=== PATIENT | male | born 1950 | race Caucasian/White ===

== ENCOUNTER 2016-12-29 09:38 | Inpatient (IN) | payer BC, MEDICARE ==
[2016-12-29] MEDS ORDERED: DILTIAZEM 5 MG/ML 5 ML VIAL IVP STA (09:40)
[2016-12-29] MEDS ORDERED: SODIUM CHLORIDE 0.9% 1,000 ML IV STA (09:40)
--- NOTE | 2016-12-29 09:53 | ED ---
General Adult HPI - General Stated complaint: Leg Weakness Time Seen by Provider: 12/29/16 09:40 Source: EMS, RN notes reviewed, old records reviewed Mode of arrival: EMS Limitations: physical limitation - History of Present Illness Initial comments: This is a 66-year-old male the ER for evaluation. The patient is coming in for evaluation of weakness. Patient is post chemotherapy today for lymphoma. Patient was walking back to his car became very weak and values to pass out had to go down to his knees, he did not completely pass out. The patient like his heart was racing. No recent illnesses or sick contacts, no recent fevers. No recent nausea vomiting or diarrhea. Patient states he is taking all medications as prescribed - Related Data Home Medications Medication Instructions Recorded Confirmed Finasteride 5 mg PO 04/18/14 12/29/16 Hydrochlorothiazide 25 mg PO [facility] 04/18/14 12/29/16 Lisinopril 20 mg PO [facility] 04/18/14 12/29/16 Simvastatin 20 mg PO 04/18/14 12/29/16 Aspirin 81 mg PO 04/22/14 12/29/16 Fluticasone Nasal [place] [Flonase 1 spray EA NOSTRIL DAILY 10/26/16 12/29/16 Nasal [place]] metFORMIN HCL [metFORMIN HCL ER] 500 mg PO DAILY 10/26/16 12/29/16 Albuterol Sulfate [Proair Hfa] 1 - 2 puff INHALATION RT-Q6H PRN 12/29/16 Edoxaban Tosylate [Savaysa] 60 mg PO DAILY 12/29/16 12/29/16 Metoprolol Tartrate [Lopressor] 25 mg PO BID 12/29/16 12/29/16 Omeprazole 20 mg PO DAILY 12/29/16 12/29/16 Ondansetron [Zofran] 4 mg PO Q6H PRN 12/29/16 12/29/16 Oxybutynin Chloride [Ditropan XL] 10 mg PO DAILY 12/29/16 12/29/16 Previous Rx's Medication Instructions Recorded Nitroglycerin Sl Tabs [Nitrostat] 0.4 mg SUBLINGUAL Q5M PRN #20 tab 04/23/14 Allergies Allergy/AdvReac Type Severity Reaction Status Date / Time Penicillins Allergy Unknown Verified 12/29/16 10:20 Childhood Review of Systems ROS Statement: Those systems with pertinent positive or pertinent negative responses have been documented in the HPI. ROS Other: All systems not noted in ROS Statement are negative. Past Medical History Past Medical History: Asthma, Cancer, Hyperlipidemia, Hypertension, Osteoarthritis (OA), Prostate Disorder Additional Past Medical History / Comment(s): SEE H & P FROM [facility]. CHRONIC BACK PAIN, USES CANE, LYMPHOMA 2016 History of Any Multi-Drug Resistant Organisms: None Reported Past Surgical History: Orthopedic Surgery, Tonsillectomy Additional Past Surgical History / Comment(s): MUTIPLE SURGERIES ON HANDS WITH SKIN GRAFTS (POST INJURY IN [place]), INFUSAPORT, [id number] Past Anesthesia/Blood Transfusion Reactions: No Reported Reaction Additional Past Anesthesia/Blood Transfusion Reaction / Comment(s): TROUBLE WAKING UP Past Psychological History: No Psychological Hx Reported Smoking Status: Never smoker Past Alcohol Use History: Occasional Past Drug Use History: None Reported - Past Family History Mother Family Medical History: Cancer Additional Family Medical History / Comment(s): LUNG General Exam Limitations: physical limitation General appearance: alert, in no apparent distress Head exam: Present: atraumatic, normocephalic, normal inspection Eye exam: Present: normal appearance, PERRL, EOMI. Absent: scleral icterus, conjunctival injection, periorbital swelling ENT exam: Present: normal exam, mucous membranes moist Neck exam: Present: normal inspection. Absent: tenderness, meningismus, lymphadenopathy Respiratory exam: Present: normal lung sounds bilaterally. Absent: respiratory distress, wheezes, rales, rhonchi, stridor Cardiovascular Exam: Present: tachycardia, irregular rhythm, normal heart sounds. Absent: systolic murmur, diastolic murmur, rubs, gallop, clicks GI/Abdominal exam: Present: soft, normal bowel sounds. Absent: distended, tenderness, guarding, rebound, rigid Extremities exam: Present: normal inspection, full ROM, normal capillary refill. Absent: tenderness, pedal edema, joint swelling, calf tenderness Back exam: Present: normal inspection Neurological exam: Present: alert, oriented X3, CN II-XII intact Psychiatric exam: Present: normal affect, normal mood Skin exam: Present: warm, dry, intact, normal color. Absent: rash Course Vital Signs 12/29/16 12/29/16 12/29/16 09:42 10:30 11:00 Temperature 97.4 F L Pulse Rate 124 H 88 96 Respiratory 20 18 20 Rate Blood Pressure 124/59 115/55 110/57 O2 Sat by Pulse 98 100 100 Oximetry - Reevaluation(s) Reevaluation #1: 12/29/16 12:33 Patient A. fib with RVR did resolve, he says his near syncope as symptoms are improving EKG Findings - EKG Comments: EKG Findings:: EKG shows A. fib with RVR rate 126, QRS 144, QTC 538 Medical Decision Making - Medical Decision Making 66 year near syncope weakness secondary to chemotherapy, walk into car and had a near syncopal event, patient found to be in A. fib with RVR, patient is anticoagulated, patient's troponin is mildly elevated which we'll trend out, patient will be admitted for telemetry, no recent fevers, patient is pancytopenic with neutropenia - Lab Data Result diagrams: 12/29/16 10:00 12/29/16 10:00 Lab Results 12/29/16 12/29/16 12/29/16 Range/Units 10:00 10:00 10:00 WBC 0.5 L* (3.8-10.6) k/uL RBC 3.32 L (4.30-5.90) m/uL Hgb 10.5 L (13.0-17.5) gm/dL Hct 32.2 L (39.0-53.0) % MCV 96.8 (80.0-100.0) fL MCH 31.7 (25.0-35.0) pg MCHC 32.7 (31.0-37.0) g/dL RDW 16.2 H (11.5-15.5) % Plt Count 102 L D (150-450) k/uL Anisocytosis Slight PT (9.0-12.0) sec INR (<1.1) APTT (22.0-30.0) sec Sodium 136 L (137-145) mmol/L Potassium 3.7 (3.5-5.1) mmol/L Chloride 97 L (98-107) mmol/L Carbon Dioxide 20 L (22-30) mmol/L Anion Gap 19 mmol/L BUN 21 H (9-20) mg/dL Creatinine 1.15 (0.66-1.25) mg/dL Est GFR (MDRD) Af Amer >60 (>60 ml/min/1.73 sqM) Est GFR (MDRD) Non-Af >60 (>60 ml/min/1.73 sqM) Glucose 245 H (74-99) mg/dL Calcium 9.4 (8.4-10.2) mg/dL Phosphorus 2.3 L (2.5-4.5) mg/dL Magnesium 1.5 L (1.6-2.3) mg/dL Total Bilirubin 1.3 (0.2-1.3) mg/dL AST 24 (17-59) U/L ALT 26 (21-72) U/L Alkaline Phosphatase 59 (38-126) U/L Total Creatine Kinase 364 H (55-170) U/L CK-MB (CK-2) 1.3 (0.0-2.4) ng/mL CK-MB (CK-2) Rel Index 0.4 Troponin I 0.056 H* (0.000-0.034) ng/mL Total Protein 6.1 L (6.3-8.2) g/dL Albumin 3.3 L (3.5-5.0) g/dL TSH 6.080 H (0.465-4.680) mIU/L Acetone, Qual (Negative) 12/29/16 12/29/16 Range/Units 10:00 10:00 WBC (3.8-10.6) k/uL RBC (4.30-5.90) m/uL Hgb (13.0-17.5) gm/dL Hct (39.0-53.0) % MCV (80.0-100.0) fL MCH (25.0-35.0) pg MCHC (31.0-37.0) g/dL RDW (11.5-15.5) % Plt Count (150-450) k/uL Anisocytosis PT 12.6 H (9.0-12.0) sec INR 1.3 (<1.1) APTT 22.6 (22.0-30.0) sec Sodium (137-145) mmol/L Potassium (3.5-5.1) mmol/L Chloride (98-107) mmol/L Carbon Dioxide (22-30) mmol/L Anion Gap mmol/L BUN (9-20) mg/dL Creatinine (0.66-1.25) mg/dL Est GFR (MDRD) Af Amer (>60 ml/min/1.73 sqM) Est GFR (MDRD) Non-Af (>60 ml/min/1.73 sqM) Glucose (74-99) mg/dL Calcium (8.4-10.2) mg/dL Phosphorus (2.5-4.5) mg/dL Magnesium (1.6-2.3) mg/dL Total Bilirubin (0.2-1.3) mg/dL AST (17-59) U/L ALT (21-72) U/L Alkaline Phosphatase (38-126) U/L Total Creatine Kinase (55-170) U/L CK-MB (CK-2) (0.0-2.4) ng/mL CK-MB (CK-2) Rel Index Troponin I (0.000-0.034) ng/mL Total Protein (6.3-8.2) g/dL Albumin (3.5-5.0) g/dL TSH (0.465-4.680) mIU/L Acetone, Qual Negative (Negative) Disposition Clinical Impression: Atrial fibrillation with RVR, Weakness, Dehydration Disposition: ADMITTED IP TO THIS HOSP Condition: Fair Referrals: Migue Hicks III, MD [Primary Care Provider] - 1-2 days
[2016-12-29] MEDS ORDERED: DILTIAZEM 125 MG in SODIUM CHLORIDE 0.9% 100 ML IV ONE (10:00)
[2016-12-29 10:33] LABS: ALT 26 U/L (21-72); AST 24 U/L (17-59); Alkaline Phosphatase 59 U/L (38-126); Anion Gap 19 mmol/L; Blood Urea Nitrogen 21 mg/dL (9-20); Calcium 9.4 mg/dL (8.4-10.2); Carbon Dioxide 20 mmol/L (22-30); Chloride 97 mmol/L (98-107); Glucose 245 mg/dL (74-99); Magnesium 1.5 mg/dL (1.6-2.3); Non-African American GFR(MDRD) >60 (>60 ml/min/1.73 sqM); Phosphorous 2.3 mg/dL (2.5-4.5); Potassium 3.7 mmol/L (3.5-5.1); Sodium 136 mmol/L (137-145); Total Bilirubin 1.3 mg/dL (0.2-1.3); Total Protein 6.1 g/dL (6.3-8.2)
[2016-12-29 10:34] LABS: Anisocytosis Slight; CHCM 33.1; HCT 32.2 % (39.0-53.0); HDW 2.83; HGB 10.5 gm/dL (13.0-17.5); Immature Gran Flag Slight; MCH 31.7 pg (25.0-35.0); MCHC 32.7 g/dL (31.0-37.0); MCV 96.8 fL (80.0-100.0); Mean Platelet Volume 7.9; RBC 3.32 m/uL (4.30-5.90); RDW 16.2 % (11.5-15.5); WBC (Perox) 0.49
[2016-12-29 10:37] LABS: WBC 0.5 k/uL (3.8-10.6)
[2016-12-29 10:42] LABS: INR 1.3 (<1.1); Partial Thromboplastin Time 22.6 sec (22.0-30.0); Prothrombin Time 12.6 sec (9.0-12.0)
--- NOTE | 2016-12-29 10:45 | XR ---
EXAMINATION TYPE: XR chest 2V DATE OF EXAM: 12/29/2016 10:14 AM COMPARISON: None HISTORY: 66-year-old male with shortness of breath and weakness TECHNIQUE: AP and lateral views FINDINGS: Heart is normal size. Aorta and pulmonary vasculature are within normal limits. There is suggestion o f a rounded 2.6 cm pulmonary nodule posteriorly at the mid lung level on the lateral view. No consoli dation or pleural effusion. Right-sided chest wall injection port with catheter tip at the lower SVC. IMPRESSION: 1. Apparent 2.6 cm pulmonary nodule posterior mid lung on the lateral view. Correlate for any known l kriss lesions, primary cancer, or metastatic disease an 2. No acute process identified.
[2016-12-29 10:59] LABS: Creatine Kinase MB 1.3 ng/mL (0.0-2.4)
[2016-12-29 11:00] LABS: Troponin I 0.056 ng/mL (0.000-0.034)
[2016-12-29 11:09] LABS: Add Differential Manual Differential
[2016-12-29] MEDS: MAGNESIUM SULFATE-D5W PMX 1 GM in DEXTROSE/WATER 1 100ML.BAG IVPB SCH ×2 (11:40→13:43)
[2016-12-29] MEDS ORDERED: CEFEPIME 2 GM in SODIUM CHLORIDE 0.9% 50 ML IVPB STA (12:29)
[2016-12-29] MEDS ORDERED: ASPIRIN 81 MG CHEW PO STA (12:30)
[2016-12-29] MEDS ORDERED: NITROGLYCERIN SL TABS 0.4 MG TAB SUBLINGUAL PRN ×2 (12:30→15:13)
[2016-12-29] MEDS ORDERED: RX INFO: IV CONTRAST WAS GIVEN 1 EACH MISC MISCELLANE PRN (12:40)
[2016-12-29] MEDS: SODIUM CHLORIDE 0.9% 1,000 ML IV SCH (12:50)
--- NOTE | 2016-12-29 13:52 | CT ---
EXAMINATION TYPE: CT angio chest DATE OF EXAM: 12/29/2016 1:30 PM COMPARISON: Chest x-ray same date HISTORY: bilateral leg weakness today with h/o Lymphoma, abnormal chest x-ray, shortness of breath CT DLP: 1348.5 mGycm Automated exposure control for dose reduction was used. CONTRAST: CTA scan of the thorax is performed with IV Contrast, patient injected with 100 mL of Omnipaque 350, pulmonary embolism protocol. MIP images are created and reviewed. 3D reconstructed images are creat ed on an independent workstation and reviewed. FINDINGS: LUNGS: The lungs are grossly clear, there is no concerning parenchymal mass or nodule identified. T here is no pleural effusion or pneumothorax seen. The tracheobronchial tree is patent. The rounded d ensity seen on chest x-ray likely corresponds to a large osteophyte in the thoracic spine. AORTA: No additional significant abnormality is seen. There is inconsistent opacification of the seg mental pulmonary arteries to the lower lobes which is thought likely to be artifactual. No definite f illing defect identified to suggest pulmonary embolism. MEDIASTINUM: Coronary artery calcifications are present. There are no greater than 1 cm hilar or medi astinal lymph nodes. No pericardial effusion is seen. OTHER: Gallstones are calcified within the gallbladder. There is a small hiatal hernia. There is a s jaleesa curvature. Degenerative disc changes are present in the visualized spine, there is multilevel f acet arthropathy. IMPRESSION: ALTHOUGH THE IS LIMITATIONS IN EXAM TECHNICALLY PULMONARY EMBOLISM IS NOT FELT LIKELY TO BE PRESENT. THERE ARE LIMITATIONS IN THE EXAM DESCRIBED. CHOLELITHIASIS. CORONARY ARTERY DISEASE. SMALL HIATAL HERNIA. ADDITIONAL FINDINGS ABOVE.
[2016-12-29 14:08] LABS: Appearance,Urine Cloudy (Clear); Bacteria,Urine Many /hpf; Bilirubin,Urine Negative (Negative); Glucose,Urine (UA) Trace (Negative); Ketones,Urine Trace (Negative); Leukocyte Esterase,Urine Negative (Negative); Mucus,Urine Occasional /hpf; Nitrite,Urine Positive (Negative); PH, Urine 5.5 (5.0-8.0); Particle Count 11461; Protein,Urine 1+ (Negative); RBC,Urine 1 /hpf (0-5); Specific Gravity,Urine 1.025 (1.001-1.035); UA Billing (MACRO vs. MICRO) MICRO; Urobilinogen,Urine <2.0 mg/dL (<2.0); WBC,Urine 10 /hpf (0-5)
[2016-12-29] MEDS ORDERED: ALBUTEROL NEBULIZED 2.5 MG/3 ML INHALATION PRN (15:13)
[2016-12-29] MEDS ORDERED: ONDANSETRON 4 MG TAB PO PRN (15:13)
[2016-12-29 17:06] LABS: Creatine Kinase MB 8.8 ng/mL (0.0-2.4); Troponin I 0.533 ng/mL (0.000-0.034)
--- NOTE | 2016-12-29 17:06 | HP ---
DATE OF ADMISSION: 12/29/2016 CHIEF COMPLAINTS: Weakness and the atrial fibrillation. HISTORY OF PRESENT ILLNESS: This 66-year-old gentleman with a past history of multiple medical problems, including history of atrial fibrillation, history of asthma, history of CAD, history of hypertension, history of DJD, history of prostate disorder, history of lymphoma being followed by Dr. Hicks and Dr. Haddad. The patient is receiving chemotherapy. Today the patient was trying to go to the garage and go to the car and the patient felt weak and extremely weak and the patient almost passed out. He was done to the knees, but he did not completely pass out. The patient was taken to [facility] and found to have atrial fibrillation with fast ventricular rate. The patient was admitted to the hospital for further evaluation and treatment. The patient also had severe leukopenia. White count of 0.5. There is no history of any fever, rigors or chills. No history of headache, loss of consciousness or seizures. PAST MEDICAL HISTORY: History of atrial fibrillation, history of asthma, CAD, history of hypertension, history of hyperlipidemia, history of DJD, history of prostate disorder, history of lymphoma and chemotherapy. Skin lesions. Medications prior to admission include home medications are: 1. Metformin 500 mg p.o. daily. 2. Simvastatin 20 mg at bedtime. 3. Ditropan XL 10 mg p.o. daily. 4. Zofran 4 mg q.6 p.r.n. 5. Omeprazole 20 mg p.o. daily. 6. Nitrostat 0.4 sublingual p.r.n. 7. Lopressor 25 mg p.o. b.i.d., 8. Lisinopril 20 mg q.a.m. 9. Hydrochlorothiazide 25 mg p.o. q.a.m. 10. Flonase one spray daily. 11. Finasteride 5 mg p.o. q.h.s. 12. Savaysa 60 mg p.o. daily. 13. Aspirin 81 mg p.o. daily. 14. ProAir HFA 1 to 2 puffs q.6 p.r.n. ALLERGIES: PENICILLIN. FAMILY HISTORY: Chronic obstructive pulmonary disease, diabetes mellitus in the family. SOCIAL HISTORY: No history of smoking. Occasional alcohol intake. REVIEW OF SYSTEMS: ENT: No diminished vision. No diminished hearing. CARDIOVASCULAR: No angina or palpitations. RESPIRATORY: As mentioned earlier. GI: No nausea or vomiting. : No dysuria. Nervous system: No numbness, weakness. ALLERGIES/IMMUNOLOGY: No asthma or hayfever. MUSCULOSKELETAL: As mentioned earlier. HEMATOLOGY/ONCOLOGY: No history of anemia. ENDOCRINE: Diabetes mellitus, hypothyroidism. CONSTITUTIONAL: as mentioned earlier. DERMATOLOGY: Negative. RHEUMATOLOGY: Negative. PSYCHIATRY: as mentioned earlier. PHYSICAL EXAMINATION: Patient is alert and oriented x3. Pulse 88, blood pressure 118/60, respiration 20, temperature 98 degrees, pulse ox 98% on room air. HEENT: Conjunctivae normal. Oral mucosa moist. NECK: Obese. No jugular venous distention. No carotid bruit. No lymph node enlargement. CARDIOVASCULAR SYSTEM: S1, S2 muffled. Irregular, tachycardic. No S3, no S4. Ejection systolic murmur. RESPIRATORY: Diminished at the bases. A few scattered rhonchi and crackles. ABDOMEN: Soft, obese, nontender. No mass palpable. LEGS: Bilateral leg edema. Bilateral skin lesions also which is erythematous and tender. Also scabs also present. LYMPHATICS: No lymph nodes palpable in the neck, axillae or groin. SKIN: As mentioned earlier. Nervous system: Higher functions as mentioned earlier. Cranial nerve 2 thru 12 grossly intact. Moves all 4 limbs. No focal motor or sensory deficits. Labs are at this time WBC 0.5, hemoglobin is 10.5. Sodium 136. TSH was noted. ASSESSMENT: 1. Presyncope with atrial fibrillation with fast ventricular rate. 2. Leukopenia, rule out neutropenic sepsis. 3. Lymphoma on chemotherapy. 4. Pancytopenia, secondary to chemotherapy. 5. Hyponatremia. 6. Super morbid obesity with body mass index 54.4. 7. Diabetes mellitus type 2. 8. Hypomagnesemia. 9. Troponin 0.056 indeterminate. 10. Increased TSH. 11. Mild hypoalbuminemia. 12. Rule out urinary tract infection. 13. Atrial fibrillation history. 14. History of asthma. 15. History of coronary artery disease. 16. Hypertension. 17. Hyperlipidemia. 18. History of degenerative joint disease. 19. History of prostate disorder. 20. History of lymphoma, on chemotherapy. 21. History of skin disease. 22. Diabetes mellitus type 2. 23. History of head injury. 24. History of cardiac catheterization. 25. Gait dysfunction. 26. FULL CODE. RECOMMENDATIONS AND DISCUSSION: This 66-year-old gentleman who presented with multiple complex medical issues. We will monitor the patient closely. Continue the current medications. Continue symptomatic treatment. I would recommend continue with the current medications. I would recommend Cefepime. Consult Dr. Haddad and cardiology. Resume the home medications, monitor blood sugars closely. The patient is on beta blockers, continue to monitor. Guarded prognosis because of multiple complex medical issues. Further recommendations to follow. A copy of dictating being forwarded to Dr. Hicks who is the primary physician.
[2016-12-29 17:30] LABS: Glucose,Whole Blood 146 mg/dL (75-99)
[2016-12-29] MEDS: INSULIN LISPRO (humaLOG) 300 UNIT/3 ML VIAL SQ SCH ×2 (17:57→21:03)
[2016-12-29] MEDS: CEFEPIME 2 GM in SODIUM CHLORIDE 0.9% 50 ML IVPB SCH ×2 (18:30→23:04)
[2016-12-29 21:00] LABS: Glucose,Whole Blood 128 mg/dL (75-99)
[2016-12-29] MEDS: ATORVASTATIN 10 MG TAB PO SCH (21:00)
[2016-12-29] MEDS: METOPROLOL TARTRATE 25 MG TAB PO SCH (21:00)
[2016-12-29] MEDS: FINASTERIDE 5 MG TAB PO SCH (21:02)
[2016-12-29 23:01] LABS: Troponin I 0.548 ng/mL (0.000-0.034)
[2016-12-30 06:14] LABS: Glucose,Whole Blood 171 mg/dL (75-99)
[2016-12-30 06:17] LABS: Anisocytosis Slight; CH 31.8; CHCM 32.7; HCT 31.7 % (39.0-53.0); HDW 2.93; HGB 10.4 gm/dL (13.0-17.5); MCHC 32.7 g/dL (31.0-37.0); MCV 97.7 fL (80.0-100.0); Macrocytosis Slight; Mean Platelet Volume 9.1; RBC 3.24 m/uL (4.30-5.90); RDW 16.2 % (11.5-15.5); WBC (Perox) 1.81
[2016-12-30 06:30] LABS: WBC 1.6 k/uL (3.8-10.6)
[2016-12-30 06:44] LABS: Anion Gap 14 mmol/L; Blood Urea Nitrogen 22 mg/dL (9-20); Calcium 8.8 mg/dL (8.4-10.2); Carbon Dioxide 27 mmol/L (22-30); Chloride 96 mmol/L (98-107); Cholesterol 129 mg/dL (<200); Glucose 155 mg/dL (74-99); HDL Cholesterol 46 mg/dL (40-60); Non-African American GFR(MDRD) >60 (>60 ml/min/1.73 sqM); Potassium 3.5 mmol/L (3.5-5.1); Sodium 137 mmol/L (137-145); Triglycerides 112 mg/dL (<150)
[2016-12-30] MEDS: INSULIN LISPRO (humaLOG) 300 UNIT/3 ML VIAL SQ SCH ×4 (06:47→21:35)
[2016-12-30] MEDS: metFORMIN 500 MG TAB PO SCH ×2 (06:56→18:55)
[2016-12-30] MEDS: PANTOPRAZOLE 40 MG TABLET PO SCH (06:58)
[2016-12-30 06:59] LABS: Add Differential Manual Differential
[2016-12-30 07:07] LABS: Manual Review Performed; Nucleated Red Blood Cells 0 /100 WBC (0-0); Total Cells Counted 200
[2016-12-30 07:08] LABS: Large Platelets Present
[2016-12-30] MEDS: EDOXABAN TOSYLATE 60 MG TABLET PO SCH (08:04)
[2016-12-30] MEDS: METOPROLOL TARTRATE 25 MG TAB PO SCH ×3 (08:04→21:33)
[2016-12-30] MEDS: HYDROCHLOROTHIAZIDE 25 MG TAB PO SCH (08:04)
[2016-12-30] MEDS: LISINOPRIL 20 MG TAB PO SCH (08:04)
[2016-12-30] MEDS: OXYBUTYNIN 10 MG TAB.ER.24 PO SCH (08:05)
[2016-12-30] MEDS: CEFEPIME 2 GM in SODIUM CHLORIDE 0.9% 50 ML IVPB SCH ×3 (08:06→23:24)
[2016-12-30] MEDS: FLUTICASONE 50MCG/SPRAY NASAL 16GM EA NOSTRIL SCH (08:08)
[2016-12-30] MEDS ORDERED: ASPIRIN 325 MG TAB PO SCH (09:00)
[2016-12-30] MEDS ORDERED: ATORVASTATIN 80 MG TAB PO SCH (09:00)
--- NOTE | 2016-12-30 10:45 | P.CRDCN ---
<Elise Alvarenga E - Last Filed: 12/30/16 10:51> History of Present Illness Consult date: 12/30/16 Requesting physician: Paris Kwan Consult reason: atrial fibrillation Chief complaint: Weakness History of present illness: This is a pleasant 66-year-old gentleman who follows regularly with Dr. Espinoza in the office. He has a history of hypertension, hyperlipidemia , obesity, coronary artery disease with prior stenting of the OM 1 in 2013, lymphoma, chronic persistent atrial fibrillation on Savaysa for anticoagulation , he presents to the hospital mainly with complaints of weakness. Patient is currently undergoing chemotherapy for his lymphoma, he states that he has been getting more and more progressively weak. He had an appointment yesterday, and he states that in spite of feeling weak he walked out to his car for his appointment, states that his legs a lot to place, he squatted down to the ground and was unable to move. Hence EMS was called and the patient was brought to the emergency room for further evaluation. EKG on arrival here showed atrial fibrillation with a right bundle branch block pattern, heart rate in the 120s. Chest x-ray revealed a 2.6 cm pulmonary nodule in the posterior mid lung on the lateral view. CTA of the chest was performed, although there were some limitations in the exam, pulmonary embolism was not felt to be present. Laboratory data was reviewed, white blood cell count yesterday 0.5, 1.6 this morning, hemoglobin 10.4, platelet count 86, potassium 3.5, BUN 22, creatinine 1.0. Magnesium level I.5. Troponins 0.05, 0.53, 0.54. Blood pressure on arrival 124/59, heart rate in the 120s. This morning's blood pressure 118/60, heart rate 108. At the time of my examination this morning, patient states that he has walked to his doorway twice this morning, feeling much stronger than yesterday. Past Medical History Past Medical History: Atrial Fibrillation, Asthma, Coronary Artery Disease (CAD) , Cancer, Hyperlipidemia, Hypertension, Osteoarthritis (OA), Prostate Disorder Additional Past Medical History / Comment(s): 2016 diagnosed with lymphoma and is currently receiving chemo (one more treatment to go), currently has sores bilateral legs and very dry feet bilaterally with bilateral pedal edema, BPH, back pain with walking, NIDDM type II, hand injury while in [place] requiring multiple graft etc surgeries, infusaport infection. History of Any Multi-Drug Resistant Organisms: None Reported Past Surgical History: Heart Catheterization, Joint Replacement, Orthopedic Surgery, Tonsillectomy Additional Past Surgical History / Comment(s): MUTIPLE SURGERIES ON HANDS WITH SKIN GRAFTS (POST INJURY IN [place]), INFUSAPORT, PTCA 2013, colonoscopy/ polypectomy, total L hip arthroplasty. Past Anesthesia/Blood Transfusion Reactions: No Reported Reaction Additional Past Anesthesia/Blood Transfusion Reaction / Comment(s): TROUBLE WAKING UP long ago after surgery in the [employer]. 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 He uses a cane to ambulate. He drives. Smoking Status: Never smoker Past Alcohol Use History: Occasional Past Drug Use History: None Reported - Past Family History Mother Family Medical History: COPD, Diabetes Mellitus Additional Family Medical History / Comment(s): Mother of a MO at the age of 61 yrs. She was a heavy smoker. Father History Unknown: Yes Medications and Allergies Home Medications Medication Instructions Recorded Confirmed Type Finasteride 5 mg PO 04/18/14 12/29/16 History Hydrochlorothiazide 25 mg PO [facility] 04/18/14 12/29/16 History Lisinopril 20 mg PO [facility] 04/18/14 12/29/16 History Simvastatin 20 mg PO 04/18/14 12/29/16 History Aspirin 81 mg PO 04/22/14 12/29/16 History Fluticasone Nasal [place] [Flonase 1 spray EA NOSTRIL DAILY 10/26/16 12/29/16 History Nasal [place]] metFORMIN HCL [metFORMIN HCL ER] 500 mg PO DAILY 10/26/16 12/29/16 History Albuterol Sulfate [Proair Hfa] 1 - 2 puff INHALATION RT-Q6H PRN 12/29/16 History Edoxaban Tosylate [Savaysa] 60 mg PO DAILY 12/29/16 12/29/16 History Metoprolol Tartrate [Lopressor] 25 mg PO BID 12/29/16 12/29/16 History Omeprazole 20 mg PO DAILY 12/29/16 12/29/16 History Ondansetron [Zofran] 4 mg PO Q6H PRN 12/29/16 12/29/16 History Oxybutynin Chloride [Ditropan XL] 10 mg PO DAILY 12/29/16 12/29/16 History Allergies Allergy/AdvReac Type Severity Reaction Status Date / Time Penicillins Allergy Unknown Verified 12/29/16 10:20 Childhood Physical Exam Vitals: Vital Signs Temp Pulse Pulse Pulse Pulse Resp BP 12/30/16 08:18 97.8 F 108 H 108 H 18 12/30/16 03:43 97.1 F L 75 18 12/29/16 23:49 96.6 F L 78 20 12/29/16 19:20 97.3 F L 96 22 12/29/16 17:00 96 18 12/29/16 15:23 97.0 F L 18 12/29/16 14:00 91 20 112/56 12/29/16 13:00 89 20 118/60 BP BP Pulse Ox 12/30/16 08:18 118/61 12/30/16 03:43 103/57 100 12/29/16 23:49 106/57 99 12/29/16 19:20 123/62 97 12/29/16 17:00 12/29/16 15:23 110/61 97 12/29/16 14:00 99 12/29/16 13:00 98 Intake and Output 12/29/16 12/30/16 12/30/16 22:59 06:59 14:59 Intake Total 200 670 118 Output Total 600 650 Balance -400 20 118 Intake: IV 370 Cefepime 2 gm In Sodium 50 Chloride 0.9% 50 ml @ 100 mls/hr IVPB ONCE STA Rx# :[id number] Sodium Chloride 0.9% 1, 320 000 ml @ 20 mls/hr IV . Q24H [facility] Rx#:[id number] Intake, IV Titration 80 Amount Sodium Chloride 0.9% 1, 80 000 ml @ 20 mls/hr IV . Q24H [facility] Rx#:[id number] Oral 120 300 118 Output: Urine 600 650 Other: Voiding Method Toilet Urinal Urinal # Bowel Movements 0 Weight 187.27 kg 181.9 kg PHYSICAL EXAMINATION: HEENT: Head is atraumatic, normocephalic. Pupils equal, round. Neck is supple. There is no elevated jugular venous pressure. HEART EXAMINATION: Heart S1 and S2 irregular irregular CHEST EXAMINATION: Lungs are clear to auscultation and precussion. No chest wall tenderness is noted on palpation or with deep breathing. ABDOMEN: Soft, obese, nontender. Bowel sounds are heard. No organomegaly noted. EXTREMITIES: 1+ peripheral pulses with 2+ evidence of peripheral edema and no calf tenderness noted. Evidence of chronic venous stasis NEUROLOGIC patient is awake, alert and oriented -3. . Results 12/30/16 06:02 12/30/16 06:04 Cardiac Enzymes 12/29/16 12/29/16 Range/Units 15:41 22:06 CK-MB (CK-2) 8.8 H* 8.0 H* (0.0-2.4) ng/mL Troponin I 0.533 H* 0.548 H* (0.000-0.034) ng/mL Lipids 12/30/16 Range/Units 06:04 Triglycerides 112 (<150) mg/dL Cholesterol 129 (<200) mg/dL HDL Cholesterol 46 (40-60) mg/dL CBC 12/30/16 Range/Units 06:02 WBC 1.6 L* (3.8-10.6) k/uL RBC 3.24 L (4.30-5.90) m/uL Hgb 10.4 L (13.0-17.5) gm/dL Hct 31.7 L (39.0-53.0) % Plt Count 86 L (150-450) k/uL Comprehensive Metabolic Panel 12/30/16 Range/Units 06:04 Sodium 137 (137-145) mmol/L Potassium 3.5 (3.5-5.1) mmol/L Chloride 96 L (98-107) mmol/L Carbon Dioxide 27 (22-30) mmol/L BUN 22 H (9-20) mg/dL Creatinine 1.01 (0.66-1.25) mg/dL Glucose 155 H (74-99) mg/dL Calcium 8.8 (8.4-10.2) mg/dL Current Medications Generic Name Dose Route Start Last Admin Trade Name Freq PRN Reason Stop Dose Admin Albuterol Sulfate 2.5 mg 12/29/16 15:13 Ventolin Nebulized INHALATION RT-Q6H PRN Shortness Of Breath Aspirin 325 mg 12/30/16 09:00 12/30/16 08:04 Aspirin PO 325 mg DAILY [facility] Administration Atorvastatin Calcium 10 mg 12/29/16 21:00 12/29/16 21:00 Lipitor PO 10 mg HS [facility] Administration Edoxaban 60 mg 12/30/16 09:00 12/30/16 08:04 Savaysa PO 60 mg DAILY [facility] Administration Finasteride 5 mg 12/29/16 21:00 12/29/16 21:02 Proscar PO 5 mg HS [facility] Administration Fluticasone Propionate 1 spray 12/30/16 09:00 12/30/16 08:08 Flonase Nasal [place] EA NOSTRIL 1 spray DAILY [facility] Administration Hydrochlorothiazide 25 mg 12/30/16 09:00 12/30/16 08:04 Hydrodiuril PO 25 mg QAM [facility] Administration Sodium Chloride 1,000 mls @ 20 mls/hr 12/29/16 12:30 12/29/16 12:50 Saline 0.9% IV 20 mls/hr .Q24H [facility] Administration Cefepime HCl 2 gm/ Sodium 50 mls @ 100 mls/hr 12/29/16 16:00 12/30/16 08:06 Chloride IVPB 100 mls/hr Q8HR [facility] Administration Insulin Human Lispro 0 unit 12/29/16 17:30 12/30/16 06:47 Humalog SQ 4 unit ACHS [facility] Administration Protocol Lisinopril 20 mg 12/30/16 09:00 12/30/16 08:04 Zestril PO 20 mg QAM [facility] Administration Metformin HCl 250 mg 12/30/16 07:30 12/30/16 06:56 Glucophage PO Not Given AC-BID [facility] Metoprolol Tartrate 25 mg 12/29/16 21:00 12/30/16 08:04 Lopressor PO 25 mg BID [facility] Administration Miscellaneous Information 1 each 12/29/16 12:40 Rx Info: Iv Contrast Was Given MISCELLANE 12/31/16 12:40 DAILY PRN Per Protocol Nitroglycerin 0.4 mg 12/29/16 15:13 Nitrostat SUBLINGUAL Q5M PRN Chest Pain Ondansetron HCl 4 mg 12/29/16 15:13 Zofran PO Q6H PRN Nausea Oxybutynin Chloride 10 mg 12/30/16 09:00 12/30/16 08:05 Ditropan Xl PO 10 mg DAILY [facility] Administration Pantoprazole Sodium 40 mg 12/30/16 07:30 12/30/16 06:58 Protonix PO 40 mg AC-BRKFST [facility] Administration Intake and Output 12/29/16 12/30/16 12/30/16 22:59 06:59 14:59 Intake Total 200 670 118 Output Total 600 650 Balance -400 20 118 Intake: IV 370 Cefepime 2 gm In Sodium 50 Chloride 0.9% 50 ml @ 100 mls/hr IVPB ONCE STA Rx# :[id number] Sodium Chloride 0.9% 1, 320 000 ml @ 20 mls/hr IV . Q24H [facility] Rx#:[id number] Intake, IV Titration 80 Amount Sodium Chloride 0.9% 1, 80 000 ml @ 20 mls/hr IV . Q24H [facility] Rx#:[id number] Oral 120 300 118 Output: Urine 600 650 Other: Voiding Method Toilet Urinal Urinal # Bowel Movements 0 Weight 187.27 kg 181.9 kg 12/30/16 06:02 12/30/16 06:04 EKG Interpretations (text) EKG shows atrial fibrillation with a right bundle branch block pattern Assessment and Plan Plan: Assessment and plan #1 weakness in a patient undergoing chemotherapy for lymphoma. #2 chronic persistent atrial fibrillation, on Savaysa, currently on a Cardizem drip. Atrial fibrillation with rapid ventricular response on admission #3 diabetes #4 coronary artery disease with prior OM stenting in 2013 Number 5 hypertension #6 obesity #7 leukopenia #8 pancytopenia #9 abnormal troponins, 0.05, 0.5, 0.5. Not consistent with acute coronary syndrome, likely secondary to oxygen supply and demand mismatch #10 hypokalemia Plan We will check orthostatic heart rate and blood pressure every shift. Obtain echocardiogram with Doppler study. Decrease aspirin to 81 mg daily. Discontinue IV Cardizem, increase beta samy to 25 mg by mouth [address] potassium. Continue Savaysa. Further recommendations to follow. DNP note has been reviewed, I agree with a documented findings and plan of care. Patient was seen and examined. <Troy Fagan - Last Filed: 12/30/16 14:50> Physical Exam Vitals: Vital Signs Temp Pulse Pulse Pulse Resp BP BP 12/30/16 12:00 97.1 F L 101 H 18 121/66 12/30/16 08:18 97.8 F 108 H 108 H 18 118/61 12/30/16 08:00 108 H 108 H 18 12/30/16 03:43 97.1 F L 75 18 103/57 12/29/16 23:49 96.6 F L 78 20 106/57 12/29/16 19:20 97.3 F L 96 22 123/62 12/29/16 17:00 96 18 12/29/16 15:23 97.0 F L 18 110/61 Pulse Ox 12/30/16 12:00 98 12/30/16 08:18 12/30/16 08:00 12/30/16 03:43 100 12/29/16 23:49 99 12/29/16 19:20 97 12/29/16 17:00 12/29/16 15:23 97 Intake and Output 12/29/16 12/30/16 12/30/16 22:59 06:59 14:59 Intake Total 200 670 318 Output Total 600 650 Balance -400 20 318 Intake: IV 370 Cefepime 2 gm In Sodium 50 Chloride 0.9% 50 ml @ 100 mls/hr IVPB ONCE STA Rx# :[id number] Sodium Chloride 0.9% 1, 320 000 ml @ 20 mls/hr IV . Q24H [facility] Rx#:[id number] Intake, IV Titration 80 Amount Sodium Chloride 0.9% 1, 80 000 ml @ 20 mls/hr IV . Q24H [facility] Rx#:[id number] Oral 120 300 318 Output: Urine 600 650 Other: Voiding Method Toilet Urinal Urinal Urinal # Bowel Movements 0 Weight 187.27 kg 181.9 kg 181.9 kg Patient Weight 12/31/16 06:59 Weight 181.9 kg Results 12/30/16 06:02 12/30/16 06:04 Cardiac Enzymes 12/29/16 12/29/16 Range/Units 15:41 22:06 CK-MB (CK-2) 8.8 H* 8.0 H* (0.0-2.4) ng/mL Troponin I 0.533 H* 0.548 H* (0.000-0.034) ng/mL Lipids 12/30/16 Range/Units 06:04 Triglycerides 112 (<150) mg/dL Cholesterol 129 (<200) mg/dL HDL Cholesterol 46 (40-60) mg/dL CBC 12/30/16 Range/Units 06:02 WBC 1.6 L* (3.8-10.6) k/uL RBC 3.24 L (4.30-5.90) m/uL Hgb 10.4 L (13.0-17.5) gm/dL Hct 31.7 L (39.0-53.0) % Plt Count 86 L (150-450) k/uL Comprehensive Metabolic Panel 12/30/16 Range/Units 06:04 Sodium 137 (137-145) mmol/L Potassium 3.5 (3.5-5.1) mmol/L Chloride 96 L (98-107) mmol/L Carbon Dioxide 27 (22-30) mmol/L BUN 22 H (9-20) mg/dL Creatinine 1.01 (0.66-1.25) mg/dL Glucose 155 H (74-99) mg/dL Calcium 8.8 (8.4-10.2) mg/dL Current Medications Generic Name Dose Route Start Last Admin Trade Name Freq PRN Reason Stop Dose Admin Albuterol Sulfate 2.5 mg 12/29/16 15:13 Ventolin Nebulized INHALATION RT-Q6H PRN Shortness Of Breath Aspirin 81 mg 12/30/16 11:00 12/30/16 12:10 Aspirin PO Not Given DAILY [facility] Atorvastatin Calcium 10 mg 12/29/16 21:00 12/29/16 21:00 Lipitor PO 10 mg HS [facility] Administration Edoxaban 60 mg 12/30/16 09:00 12/30/16 08:04 Savaysa PO 60 mg DAILY [facility] Administration Finasteride 5 mg 12/29/16 21:00 12/29/16 21:02 Proscar PO 5 mg HS [facility] Administration Fluticasone Propionate 1 spray 12/30/16 09:00 12/30/16 08:08 Flonase Nasal [place] EA NOSTRIL 1 spray DAILY [facility] Administration Hydrochlorothiazide 25 mg 12/30/16 09:00 12/30/16 08:04 Hydrodiuril PO 25 mg QAM [facility] Administration Sodium Chloride 1,000 mls @ 20 mls/hr 12/29/16 12:30 12/30/16 12:09 Saline 0.9% IV 20 mls/hr .Q24H [facility] Administration Cefepime HCl 2 gm/ Sodium 50 mls @ 100 mls/hr 12/29/16 16:00 12/30/16 08:06 Chloride IVPB 100 mls/hr Q8HR [facility] Administration Insulin Human Lispro 0 unit 12/29/16 17:30 12/30/16 12:17 Humalog SQ Not Given ACHS [facility] Protocol Lisinopril 20 mg 12/30/16 09:00 12/30/16 08:04 Zestril PO 20 mg QAM [facility] Administration Metformin HCl 250 mg 12/30/16 07:30 12/30/16 06:56 Glucophage PO Not Given AC-BID [facility] Metoprolol Tartrate 25 mg 12/30/16 16:00 Lopressor PO TID [facility] Miscellaneous Information 1 each 12/29/16 12:40 Rx Info: Iv Contrast Was Given MISCELLANE 12/31/16 12:40 DAILY PRN Per Protocol Nitroglycerin 0.4 mg 12/29/16 15:13 Nitrostat SUBLINGUAL Q5M PRN Chest Pain Ondansetron HCl 4 mg 12/29/16 15:13 Zofran PO Q6H PRN Nausea Oxybutynin Chloride 10 mg 12/30/16 09:00 12/30/16 08:05 Ditropan Xl PO 10 mg DAILY [facility] Administration Pantoprazole Sodium 40 mg 12/30/16 07:30 12/30/16 06:58 Protonix PO 40 mg AC-BRKFST [facility] Administration Intake and Output 12/29/16 12/30/16 12/30/16 22:59 06:59 14:59 Intake Total 200 670 318 Output Total 600 650 Balance -400 20 318 Intake: IV 370 Cefepime 2 gm In Sodium 50 Chloride 0.9% 50 ml @ 100 mls/hr IVPB ONCE STA Rx# :[id number] Sodium Chloride 0.9% 1, 320 000 ml @ 20 mls/hr IV . Q24H [facility] Rx#:[id number] Intake, IV Titration 80 Amount Sodium Chloride 0.9% 1, 80 000 ml @ 20 mls/hr IV . Q24H [facility] Rx#:[id number] Oral 120 300 318 Output: Urine 600 650 Other: Voiding Method Toilet Urinal Urinal Urinal # Bowel Movements 0 Weight 187.27 kg 181.9 kg 181.9 kg Patient Weight 12/31/16 06:59 Weight 181.9 kg 12/30/16 06:02 12/30/16 06:04
[2016-12-30] MEDS ORDERED: POTASSIUM CHLORIDE ER 20 MEQ TAB.ER PO STA (10:53)
[2016-12-30 11:47] LABS: Glucose,Whole Blood 127 mg/dL (75-99)
[2016-12-30] MEDS: SODIUM CHLORIDE 0.9% 1,000 ML IV SCH (12:09)
[2016-12-30] MEDS: ASPIRIN 81 MG CHEW PO SCH (12:10)
--- NOTE | 2016-12-30 16:56 | P.CONS ---
History of Present Illness - Reason for Consult Consult date: 12/30/16 known-pt on chemo for lymphoma Requesting physician: Juan Carlos Ramon - Chief Complaint palpitations, weakness - History of Present Illness Mr. Welsh is a very pleasant 66-year-old male patient of Dr. Dr. Haddad who was initially seen around June 2016. He had a nodular mass just below the left knee that was increasing in size over the previous 4-[address] 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 Patient had a PET scan done for staging, uptake was noted at the mass site and in the right anterior and medial calf. He had an echo performed at that time, prior to anthracycline therapy, this was normal. Patient was initiated on RCHOP on September 15 and is status post 5 cycles area, patient has overall done rather well with treatment. Patient states that over the last few days he has been having diarrhea,dry heaves and poor oral intake, he noted that his urination was less frequent, the urine was darker and had a foul odor. Patient typically takes breaks while ambulating but, he decided to go out to his pole barn with out a break, he fell to his knees due to overwhelming leg weakness and SOB, he denied syncopy, he was brought to the emergency department. CT of the chest was negative for PE, no evidence of pneumonia, urine is suspicious, lower extremities are also suspicious for infection. Patient is on empiric antibiotics. When seen today the patient states he is doing much better then when he came in. He denies any current shortness of breath, dizziness, chest pain or palpitations, no more dry heaves, he is tolerating oral intake. Review of Systems All systems: negative Constitutional: Reports as per HPI Past Medical History Past Medical History: Atrial Fibrillation, Asthma, Coronary Artery Disease (CAD) , Cancer, Hyperlipidemia, Hypertension, Osteoarthritis (OA), Prostate Disorder Additional Past Medical History / Comment(s): 2016 diagnosed with lymphoma and is currently receiving chemo (one more treatment to go), currently has sores bilateral legs and very dry feet bilaterally with bilateral pedal edema, BPH, back pain with walking, NIDDM type II, hand injury while in [place] requiring multiple graft etc surgeries, infusaport infection. History of Any Multi-Drug Resistant Organisms: None Reported Past Surgical History: Heart Catheterization, Joint Replacement, Orthopedic Surgery, Tonsillectomy Additional Past Surgical History / Comment(s): MUTIPLE SURGERIES ON HANDS WITH SKIN GRAFTS (POST INJURY IN [place]), INFUSAPORT, PTCA 2013, colonoscopy/ polypectomy, total L hip arthroplasty. Past Anesthesia/Blood Transfusion Reactions: No Reported Reaction Additional Past Anesthesia/Blood Transfusion Reaction / Comm: TROUBLE WAKING UP long ago after surgery in the [employer]. 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 He uses a cane to ambulate. He drives. Smoking Status: Never smoker Past Alcohol Use History: Occasional Past Drug Use History: None Reported - Past Family History Mother Family Medical History: COPD, Diabetes Mellitus Additional Family Medical History / Comment(s): Mother of a AL at the age of 61 yrs. She was a heavy smoker. Father History Unknown: Yes Medications and Allergies Home Medications Medication Instructions Recorded Confirmed Type Finasteride 5 mg PO 04/18/14 12/29/16 History Hydrochlorothiazide 25 mg PO QA 04/18/14 12/29/16 History Lisinopril 20 mg PO M 04/18/14 12/29/16 History Simvastatin 20 mg PO 04/18/14 12/29/16 History Aspirin 81 mg PO 04/22/14 12/29/16 History Fluticasone Nasal [place] [Flonase 1 spray EA NOSTRIL DAILY 10/26/16 12/29/16 History Nasal [place]] metFORMIN HCL [metFORMIN HCL ER] 500 mg PO DAILY 10/26/16 12/29/16 History Albuterol Sulfate [Proair Hfa] 1 - 2 puff INHALATION RT-Q6H PRN 12/29/16 History Edoxaban Tosylate [Savaysa] 60 mg PO DAILY 12/29/16 12/29/16 History Metoprolol Tartrate [Lopressor] 25 mg PO BID 12/29/16 12/29/16 History Omeprazole 20 mg PO DAILY 12/29/16 12/29/16 History Ondansetron [Zofran] 4 mg PO Q6H PRN 12/29/16 12/29/16 History Oxybutynin Chloride [Ditropan XL] 10 mg PO DAILY 12/29/16 12/29/16 History Allergies Allergy/AdvReac Type Severity Reaction Status Date / Time Penicillins Allergy Unknown Verified 12/29/16 10:20 Childhood Physical Exam Vitals: Vital Signs Temp Pulse Pulse Pulse Resp BP Pulse Ox 12/30/16 12:00 97.1 F L 101 H 18 121/66 98 12/30/16 08:18 97.8 F 108 H 108 H 18 118/61 12/30/16 08:00 108 H 108 H 18 12/30/16 03:43 97.1 F L 75 18 103/57 100 12/29/16 23:49 96.6 F L 78 20 106/57 99 12/29/16 19:20 97.3 F L 96 22 123/62 97 12/29/16 17:00 96 18 Intake and Output 12/30/16 12/30/16 12/30/16 06:59 14:59 22:59 Intake Total 670 318 650 Output Total 650 Balance 20 318 650 Intake: IV 370 Cefepime 2 gm In Sodium 50 Chloride 0.9% 50 ml @ 100 mls/hr IVPB ONCE STA Rx# :[id number] Sodium Chloride 0.9% 1, 320 000 ml @ 20 mls/hr IV . Q24H [facility] Rx#:[id number] Oral 300 318 650 Output: Urine 650 Other: Voiding Method Urinal Urinal Weight 181.9 kg 181.9 kg Patient Weight 12/31/16 06:59 Weight 181.9 kg - Constitutional General appearance: cooperative, morbidly obese, no acute distress - EENT Eyes: anicteric sclerae, PERRLA, normal appearance ENT: normal oropharynx - Neck Neck: no lymphadenopathy - Respiratory Respiratory: bilateral: diminished - Cardiovascular Rhythm: regular Heart sounds: normal: S1, S2 leg Peripheral Edema: bilateral: 4+, Pitting - Gastrointestinal General gastrointestinal: no absent bowel sounds, no decreased bowel sounds, no distended, no hepatomegaly, no hyperactive bowel sounds, normal bowel sounds, no organomegaly, no rigid, no scaphoid, soft, no splenomegaly, no tenderness, no umbilical hernia, no ventral hernia - Integumentary BLE multiple nodules on legs and thighs, numerous, up 2.5cm in diameter, reddened, some are tender, some are consistent with known cutaneous lymphoma, no gross drainage, severe dry skin, RLE lateral aspect lower leg, reddened, warm. - Neurologic Neurologic: CNII-XII intact - Musculoskeletal Musculoskeletal: strength equal bilaterally - Psychiatric Psychiatric: A&O x's 3, appropriate affect, intact judgment & insight Results CBC & Chem 7: 12/30/16 06:02 12/30/16 06:04 Labs: Abnormal Lab Results - Last 24 Hours (Table) 12/29/16 12/29/16 12/29/16 Range/Units 15:41 15:41 17:09 WBC (3.8-10.6) k/uL RBC (4.30-5.90) m/uL Hgb (13.0-17.5) gm/dL Hct (39.0-53.0) % RDW (11.5-15.5) % Plt Count (150-450) k/uL Neutrophils # (Manual) (1.3-7.7) k/uL Lymphocytes # (Manual) (1.0-4.8) k/uL Chloride (98-107) mmol/L BUN (9-20) mg/dL Glucose (74-99) mg/dL POC Glucose (mg/dL) 146 H (75-99) mg/dL Hemoglobin A1c 7.0 H (4.2-6.1) % Total Creatine Kinase 5436 H (55-170) U/L CK-MB (CK-2) 8.8 H* (0.0-2.4) ng/mL Troponin I 0.533 H* (0.000-0.034) ng/mL 12/29/16 12/29/16 12/30/16 Range/Units 20:47 22:06 06:02 WBC 1.6 L* (3.8-10.6) k/uL RBC 3.24 L (4.30-5.90) m/uL Hgb 10.4 L (13.0-17.5) gm/dL Hct 31.7 L (39.0-53.0) % RDW 16.2 H (11.5-15.5) % Plt Count 86 L (150-450) k/uL Neutrophils # (Manual) 0.6 L (1.3-7.7) k/uL Lymphocytes # (Manual) 0.7 L (1.0-4.8) k/uL Chloride (98-107) mmol/L BUN (9-20) mg/dL Glucose (74-99) mg/dL POC Glucose (mg/dL) 128 H (75-99) mg/dL Hemoglobin A1c (4.2-6.1) % Total Creatine Kinase 4134 H (55-170) U/L CK-MB (CK-2) 8.0 H* (0.0-2.4) ng/mL Troponin I 0.548 H* (0.000-0.034) ng/mL 12/30/16 12/30/16 12/30/16 Range/Units 06:04 06:13 11:43 WBC (3.8-10.6) k/uL RBC (4.30-5.90) m/uL Hgb (13.0-17.5) gm/dL Hct (39.0-53.0) % RDW (11.5-15.5) % Plt Count (150-450) k/uL Neutrophils # (Manual) (1.3-7.7) k/uL Lymphocytes # (Manual) (1.0-4.8) k/uL Chloride 96 L (98-107) mmol/L BUN 22 H (9-20) mg/dL Glucose 155 H (74-99) mg/dL POC Glucose (mg/dL) 171 H 127 H (75-99) mg/dL Hemoglobin A1c (4.2-6.1) % Total Creatine Kinase (55-170) U/L CK-MB (CK-2) (0.0-2.4) ng/mL Troponin I (0.000-0.034) ng/mL Microbiology - Last 24 Hours (Table) 12/29/16 13:35 Urine Culture - Preliminary Urine,Voided Chest x-ray: report reviewed CT scan - chest: report reviewed Assessment and Plan (1) Cutaneous B-cell lymphoma Narrative/Plan: Status post 5 of 6 treatments of RCHOP with Neulasta on 12/22. Patient has overall has tolerated treatment rather well. Patient's admission for A-fib with RVR as well as weakness could certainly be multifactorial including low blood counts secondary to chemotherapy, dehydration and infection. Patient has been worked up with no pulmonary embolism identified. No evidence of a pneumonia on chest x-ray report, discussion of lung nodule noted and will continue to be followed. Patient was dehydrated as he was having dry heaves, poor oral intake and diarrhea, this has subsided since admission. His urine is suspicious for infection, he is on antibiotics. Both lower extremities do have cutaneous lymphoma, though with treatment this has much improved, he does look like he has a cellulitis and possibly some other infectious nodules, he is on antibiotics. Further intervention from a hematology oncology standpoint at this time, patient recently received Neulasta so no G-CSF therapy, no need for blood or platelet transfusion at this time. We will continue to follow patient's labs while he is admitted. Echo report will be reviewed once the report is completed as patient is receiving an anthracycline. Patient will be reevaluated prior to resuming any treatment in the outpatient setting. Status: Chronic (2) Pancytopenia due to antineoplastic chemotherapy Narrative/Plan: No PRBC or platelet transfusion necessary at this time, numbers are low but acceptable. Patient received long-acting G-CSF on 12/22, he cannot receive any additional growth factor support for at least 10 days. Status: Acute
[2016-12-30 16:59] LABS: Glucose,Whole Blood 153 mg/dL (75-99)
--- NOTE | 2016-12-30 19:54 | P.PN ---
Subjective Date of service 12/30/2016 Personal being dictated for Dr. Kwan. Interval history: This a 66-year-old gentleman admitted with presyncope, atrial fibrillation with RVR, pancytopenia in a patient with lymphoma on chemotherapy and multiple other medical issues. Evaluated by both cardiology and oncology with recommendations noted. CT of chest reporting negative for PE. Maintained on empiric antibiotics. Consuming 100% of consistent carb diet with no nausea or vomiting. Denies lightheadedness dizziness or focal deficits. Denies chest pain, palpitations or increasing shortness of breath. Ambulating within room. Maintained on Cardizem drip. Telemetry A. fib with controlled ventricular rate. Potassium 3.5. Afebrile. Objective - Vital Signs Vital signs: Vital Signs Temp 97.1 F L 12/30/16 16:00 Pulse 91 12/30/16 16:00 Resp 20 12/30/16 16:00 BP 116/63 12/30/16 16:00 Pulse Ox 98 12/30/16 16:00 Intake & Output 12/30/16 12/30/16 12/31/16 06:59 18:59 06:59 Intake Total 670 968 Output Total 1050 150 Balance -380 818 Weight 181.9 kg 181.9 kg Intake: IV 370 Cefepime 2 gm In Sodium 50 Chloride 0.9% 50 ml @ 100 mls/hr IVPB ONCE STA Rx# :[id number] Sodium Chloride 0.9% 1, 320 000 ml @ 20 mls/hr IV . Q24H [facility] Rx#:[id number] Oral 300 968 Output: Urine 1050 150 Other: Voiding Method Urinal Urinal - Exam PHYSICAL EXAM: VITAL SIGNS: As above GENERAL: [Sitting up in chair, no acute distress] HEENT: [Pupils equal conjunctiva normal. Normocephalic.] NECK: [Supple, no JVD, right-sided chest wall infusion port present, currently not accessed.] RESPIRATORY EFFORT:[Normal] LUNGS: Bilateral bases [Diminished, fine crackles scattered throughout] CARDIOVASCULAR[irregular, mildly tachycardic, positive systolic murmur, positive edema] GI: [Abdomen soft, obese, nontender, positive bowel sounds.] PSYCH: [Alert and oriented -3, mood and affect normal.] NEURO: No focal deficits Microbiology 12/29/16 15:41 Blood Blood Culture - Preliminary No Growth after 24 hours 12/29/16 13:35 Urine,Voided Urine Culture - Final - Labs CBC & Chem 7: 12/30/16 06:02 12/30/16 06:04 Labs: Abnormal Lab Results - Last 24 Hours (Table) 12/29/16 12/29/16 12/29/16 Range/Units 15:41 20:47 22:06 WBC (3.8-10.6) k/uL RBC (4.30-5.90) m/uL Hgb (13.0-17.5) gm/dL Hct (39.0-53.0) % RDW (11.5-15.5) % Plt Count (150-450) k/uL Neutrophils # (Manual) (1.3-7.7) k/uL Lymphocytes # (Manual) (1.0-4.8) k/uL Chloride (98-107) mmol/L BUN (9-20) mg/dL Glucose (74-99) mg/dL POC Glucose (mg/dL) 128 H (75-99) mg/dL Hemoglobin A1c 7.0 H (4.2-6.1) % Total Creatine Kinase 4134 H (55-170) U/L CK-MB (CK-2) 8.0 H* (0.0-2.4) ng/mL Troponin I 0.548 H* (0.000-0.034) ng/mL 12/30/16 12/30/16 12/30/16 Range/Units 06:02 06:04 06:13 WBC 1.6 L* (3.8-10.6) k/uL RBC 3.24 L (4.30-5.90) m/uL Hgb 10.4 L (13.0-17.5) gm/dL Hct 31.7 L (39.0-53.0) % RDW 16.2 H (11.5-15.5) % Plt Count 86 L (150-450) k/uL Neutrophils # (Manual) 0.6 L (1.3-7.7) k/uL Lymphocytes # (Manual) 0.7 L (1.0-4.8) k/uL Chloride 96 L (98-107) mmol/L BUN 22 H (9-20) mg/dL Glucose 155 H (74-99) mg/dL POC Glucose (mg/dL) 171 H (75-99) mg/dL Hemoglobin A1c (4.2-6.1) % Total Creatine Kinase (55-170) U/L CK-MB (CK-2) (0.0-2.4) ng/mL Troponin I (0.000-0.034) ng/mL 12/30/16 12/30/16 Range/Units 11:43 16:56 WBC (3.8-10.6) k/uL RBC (4.30-5.90) m/uL Hgb (13.0-17.5) gm/dL Hct (39.0-53.0) % RDW (11.5-15.5) % Plt Count (150-450) k/uL Neutrophils # (Manual) (1.3-7.7) k/uL Lymphocytes # (Manual) (1.0-4.8) k/uL Chloride (98-107) mmol/L BUN (9-20) mg/dL Glucose (74-99) mg/dL POC Glucose (mg/dL) 127 H 153 H (75-99) mg/dL Hemoglobin A1c (4.2-6.1) % Total Creatine Kinase (55-170) U/L CK-MB (CK-2) (0.0-2.4) ng/mL Troponin I (0.000-0.034) ng/mL Microbiology - Last 24 Hours (Table) 12/29/16 15:41 Blood Culture - Preliminary Blood No Growth after 24 hours 12/29/16 13:35 Urine Culture - Final Urine,Voided Assessment and Plan Plan: 1. [Presyncope with atrial fibrillation with RVR, now controlled ventricular rate, in a patient with chronic persistent atrial fibrillation]. 2. [Pancytopenia secondary to chemotherapy]. Leukopenia, ruling out neutropenic sepsis. 3. Lymphoma on chemotherapy. 4. [Hyponatremia, resolved]. 5. [Morbid obesity, BMI 52.9]. 6. [Diabetes mellitus type 2]. 7. [Hypomagnesemia]. 8. Troponin 0.056 indeterminate. acute coronary syndrome ruled out as per cardiology. 9. Increased TSH 10. Hypoalbuminemia, mild 11. History of asthma 12. CAD, history of cardiac cath. and stenting 13. Hypertension 14. Hyperlipidemia 15. Gait dysfunction with Degenerative joint disease 16. History of prostate disorder 17. History of skin disease 18. History of head injury 19. 2.6 cm pulmonary nodule posterior midlung lateral view per chest x-ray 20. Hypokalemia Plan: Continue on current medication regime , antibiotics, beta samy, monitoring and symptomatic treatment. Cardizem drip is being discontinued. Beta samy increased. Potassium supplements ordered. close monitoring of electrolytes with repeat labs ordered for a.m. Continue following cultures closely. PT/OT; patient with generalized weakness, poor functional endurance. Follow closely with cardiology and oncology. Further recommendations to follow. The impression and plan of care has been dictated as directed. .: I performed a H&P examination of this patient and discussed the same with the dictator. I agree with the dictator's note. Any additional findings/opinions/ etc. will be noted.
[2016-12-30] MEDS: FINASTERIDE 5 MG TAB PO SCH (21:33)
[2016-12-30] MEDS: ATORVASTATIN 10 MG TAB PO SCH (21:33)
[2016-12-30 21:36] LABS: Glucose,Whole Blood 152 mg/dL (75-99)
[2016-12-31] MEDS: metFORMIN 500 MG TAB PO SCH ×2 (04:32→17:37)
[2016-12-31] MEDS: INSULIN LISPRO (humaLOG) 300 UNIT/3 ML VIAL SQ SCH ×4 (06:17→21:00)
[2016-12-31] MEDS: PANTOPRAZOLE 40 MG TABLET PO SCH (06:18)
[2016-12-31 06:23] LABS: Glucose,Whole Blood 129 mg/dL (75-99)
[2016-12-31 06:44] LABS: Anisocytosis Slight; Basophils % (A) 0 %; CH 32.2; CHCM 33.7; Eosinophils # (A) 0.1 k/uL (0-0.7); Eosinophils % (A) 3 %; HCT 27.5 % (39.0-53.0); HDW 3.09; HGB 9.1 gm/dL (13.0-17.5); Luc # (Auto) 0.06; Luc % (Auto) 3; Lymphocytes # (A) 0.4 k/uL (1.0-4.8); Lymphocytes % (A) 17 %; MCH 31.9 pg (25.0-35.0); MCHC 33.3 g/dL (31.0-37.0); Mean Platelet Volume 8.7; Monocytes # (A) 0.1 k/uL (0-1.0); Monocytes % (A) 5 %; Neutrophils # (A) 1.8 k/uL (1.3-7.7); Neutrophils % (A) 72 %; RBC 2.86 m/uL (4.30-5.90); RDW 16.4 % (11.5-15.5); WBC 2.5 k/uL (3.8-10.6); WBC (Perox) 2.52
[2016-12-31 06:53] LABS: Anion Gap 8 mmol/L; Blood Urea Nitrogen 22 mg/dL (9-20); Calcium 8.1 mg/dL (8.4-10.2); Carbon Dioxide 30 mmol/L (22-30); Chloride 98 mmol/L (98-107); Glucose 135 mg/dL (74-99); Magnesium 1.7 mg/dL (1.6-2.3); Non-African American GFR(MDRD) >60 (>60 ml/min/1.73 sqM); Potassium 3.3 mmol/L (3.5-5.1); Sodium 136 mmol/L (137-145)
--- NOTE | 2016-12-31 08:36 | ECHOF ---
Referral Reason:afib MEASUREMENTS -------- HEIGHT: 185.4 cm WEIGHT: 181.9 kg BP: 118/61 RVIDd: 3.7 cm (< 3.3) IVSd: 1.4 cm (0.6 - 1.1) LVIDd: 5.8 cm (3.9 - 5.3) LVPWd: 1.5 cm (0.6 - 1.1) IVSs: 1.6 cm LVIDs: 4.1 cm LVPWs: 1.8 cm LA Diam: 4.5 cm (2.7 - 3.8) LAESV Index (A-L): 32.95 ml/m Ao Diam: 3.9 cm (2.0 - 3.7) AV Cusp: 2.6 cm (1.5 - 2.6) LA Diam: 4.4 cm (2.7 - 3.8) MV EXCURSION: 23.905 mm (> 18.000) MV EF SLOPE: 155 mm/s (70 - 150) EPSS: 1.4 cm AR PHT: 1011 ms RAP: 5.00 mmHg RVSP: 34.42 mmHg FINDINGS -------- Atrial fibrillation. This was a technically adequate study. The left ventricular size is normal. There is moderate concentric left ventricular hypertrophy. Overall left ventricular systolic function is low-normal with, an EF between 50 - 55 %. The right ventricle is mild to moderately enlarged. LA is midly dilated 29-33ml/m2. The right atrium is normal in size. 1.5mg of Definity was utilized for enhancement of images There is mild aortic valve sclerosis. Trace to mild aortic regurgitation. Mild mitral annular calcification present. There is trace to mild mitral regurgitation. Mild tricuspid regurgitation present. Right ventricular systolic pressure is normal at < 35 mmHg. The pulmonic valve was not well visualized. The aortic root is dilated measuring 3.9cm. There is no pericardial effusion. CONCLUSIONS -------- 1. Atrial fibrillation. 2. There is mild aortic valve sclerosis. 3. Trace to mild aortic regurgitation. 4. Mild mitral annular calcification present. 5. There is trace to mild mitral regurgitation. 6. Mild tricuspid regurgitation present. 7. Right ventricular systolic pressure is normal at < 35 mmHg. 8. The pulmonic valve was not well visualized. 9. The aortic root is dilated measuring 3.9cm. 10. There is no pericardial effusion. 11. This was a technically adequate study. 12. The left ventricular size is normal. 13. There is moderate concentric left ventricular hypertrophy. 14. Overall left ventricular systolic function is low-normal with, an EF between 50 - 55 %. 15. The right ventricle is mild to moderately enlarged. 16. LA is midly dilated 29-33ml/m2. 17. The right atrium is normal in size. 18. 1.5mg of Definity was utilized for enhancement of images [employer]IC LIAISON: Liv August RDCS
--- NOTE | 2016-12-31 09:25 | P.PN ---
Subjective This is a pleasant 66-year-old gentleman who follows regularly with Dr. Espinoza in the office. He has a history of hypertension, hyperlipidemia , obesity, coronary artery disease with prior stenting of the OM 1 in 2013, lymphoma, chronic persistent atrial fibrillation on Savaysa for anticoagulation , he presents to the hospital mainly with complaints of weakness. Patient is currently undergoing chemotherapy for his lymphoma, he states that he has been getting more and more progressively weak. On presentation here patient was found to be in atrial fibrillation with rapid ventricular response. He was seen in consultation yesterday by Dr. Fagan, IV Cardizem was discontinued and dose of beta samy was increased. In atrial fibrillation today his heart rate is in the 70s. Sitting up in the chair at the time of my examination, overall feeling much stronger , possibly being discharged home today. Objective - Vital Signs Vital signs: Vital Signs Temp 96.8 F L 12/31/16 03:18 Pulse 76 12/31/16 03:18 Resp 16 12/31/16 03:18 BP 111/58 12/31/16 03:18 Pulse Ox 94 L 12/31/16 07:39 Intake & Output 12/30/16 12/31/16 12/31/16 18:59 06:59 18:59 Intake Total 968 370 400 Output Total 150 300 Balance 818 70 400 Weight 181.9 kg 182 kg Intake: IV 370 Cefepime 2 gm In Sodium 50 Chloride 0.9% 50 ml @ 100 mls/hr IVPB ONCE STA Rx# :[id number] Sodium Chloride 0.9% 1, 320 000 ml @ 20 mls/hr IV . Q24H [facility] Rx#:[id number] Oral 968 400 Output: Urine 150 300 Other: Voiding Method Urinal Urinal # Bowel Movements 1 - Exam PHYSICAL EXAMINATION: HEENT: Head is atraumatic, normocephalic. Pupils equal, round. Neck is supple. There is no elevated jugular venous pressure. HEART EXAMINATION: Heart S1 and S2 irregular irregular CHEST EXAMINATION: Lungs are clear to auscultation and precussion. No chest wall tenderness is noted on palpation or with deep breathing. ABDOMEN: Soft, obese, nontender. Bowel sounds are heard. No organomegaly noted. EXTREMITIES: 1+ peripheral pulses with 1+ evidence of peripheral edema and no calf tenderness noted. Evidence of bilateral chronic venous stasis and ulcerations. NEUROLOGIC patient is awake, alert and oriented -3. . - Labs CBC & Chem 7: 12/31/16 05:55 12/31/16 05:55 Labs: Abnormal Lab Results - Last 24 Hours (Table) 12/30/16 12/30/16 12/30/16 Range/Units 11:43 16:56 21:34 WBC (3.8-10.6) k/uL RBC (4.30-5.90) m/uL Hgb (13.0-17.5) gm/dL Hct (39.0-53.0) % RDW (11.5-15.5) % Plt Count (150-450) k/uL Lymphocytes # (1.0-4.8) k/uL Sodium (137-145) mmol/L Potassium (3.5-5.1) mmol/L BUN (9-20) mg/dL Glucose (74-99) mg/dL POC Glucose (mg/dL) 127 H 153 H 152 H (75-99) mg/dL Calcium (8.4-10.2) mg/dL 12/31/16 12/31/16 12/31/16 Range/Units 05:55 05:55 06:11 WBC 2.5 L (3.8-10.6) k/uL RBC 2.86 L (4.30-5.90) m/uL Hgb 9.1 L (13.0-17.5) gm/dL Hct 27.5 L (39.0-53.0) % RDW 16.4 H (11.5-15.5) % Plt Count 77 L (150-450) k/uL Lymphocytes # 0.4 L (1.0-4.8) k/uL Sodium 136 L (137-145) mmol/L Potassium 3.3 L (3.5-5.1) mmol/L BUN 22 H (9-20) mg/dL Glucose 135 H (74-99) mg/dL POC Glucose (mg/dL) 129 H (75-99) mg/dL Calcium 8.1 L (8.4-10.2) mg/dL Microbiology - Last 24 Hours (Table) 12/29/16 15:41 Blood Culture - Preliminary Blood No Growth after 24 hours 12/29/16 13:35 Urine Culture - Final Urine,Voided Assessment and Plan Plan: Assessment and plan #1 weakness in a patient undergoing chemotherapy for lymphoma. #2 chronic persistent atrial fibrillation, on Savaysa, heart rate in the 70s today. On 25 mg of Lopressor 3 times a day #3 diabetes #4 coronary artery disease with prior OM stenting in 2013 # 5 hypertension #6 obesity #7 leukopenia #8 pancytopenia #9 abnormal troponins, 0.05, 0.5, 0.5. Not consistent with acute coronary syndrome, likely secondary to oxygen supply and demand mismatch #10 hypokalemia Plan Cardiology's perspective, we'll continue 3 times a day dose of beta samy. He may be able to be discharged home once cleared by the primary. We will make a follow-up appointment with Dr. Espinoza in the office post discharge. DNP note has been reviewed, I agree with a documented findings and plan of care. Patient was seen and examined.
[2016-12-31] MEDS: EDOXABAN TOSYLATE 60 MG TABLET PO SCH (10:37)
[2016-12-31] MEDS: FLUTICASONE 50MCG/SPRAY NASAL 16GM EA NOSTRIL SCH (10:37)
[2016-12-31] MEDS: ASPIRIN 81 MG CHEW PO SCH (10:37)
[2016-12-31] MEDS: METOPROLOL TARTRATE 25 MG TAB PO SCH ×3 (10:38→20:56)
[2016-12-31] MEDS: OXYBUTYNIN 10 MG TAB.ER.24 PO SCH (10:38)
[2016-12-31] MEDS: LISINOPRIL 20 MG TAB PO SCH (10:39)
[2016-12-31] MEDS: HYDROCHLOROTHIAZIDE 25 MG TAB PO SCH (10:39)
[2016-12-31 11:43] LABS: Glucose,Whole Blood 149 mg/dL (75-99)
[2016-12-31] MEDS: CEFEPIME 2 GM in SODIUM CHLORIDE 0.9% 50 ML IVPB SCH ×2 (12:34→16:07)
[2016-12-31] MEDS ORDERED: IV VANCOMYCIN PER PHARMACY 1 EACH MISC MISCELLANE PRN (16:23)
[2016-12-31 16:39] LABS: Glucose,Whole Blood 154 mg/dL (75-99)
[2016-12-31] MEDS: POTASSIUM CHLORIDE ER 20 MEQ TAB.ER PO SCH ×2 (17:33→19:41)
[2016-12-31] MEDS: VANCOMYCIN 2,500 MG in SODIUM CHLORIDE 0.9% 500 ML IVPB SCH (17:33)
--- NOTE | 2016-12-31 17:33 | PN ---
DATE OF SERVICE: 12/30/2016 This 66-year-old gentleman who was admitted with atrial fibrillation also had pancytopenia secondary to chemotherapy. The patient also had skin infections also. Seen and evaluated the patient along with the nurse practitioner. Please refer to nurse practitioner notes and impression documented for further information. MTDD
--- NOTE | 2016-12-31 18:31 | PN ---
DATE OF SERVICE: 12/31/2016 This 66-year-old gentleman who was admitted with atrial fibrillation with rapid ventricular rate also had pancytopenia and skin infection is also noted. No chest pain, no palpitations. No fever. Patient is on broad-spectrum IV antibiotics and chemo for lymphoma. No chest pain or palpitation. No fever. On exam, alert and oriented x2. Pulse is 76, blood pressure 111/53, respirations 16, temperature 96.8, pulse ox 94% on room air. HEENT: Conjunctivae normal. NECK: No jugular venous distention. CARDIOVASCULAR: S1 and S2, muffled. RESPIRATORY: Breath sounds diminished at the bases. A few scattered rhonchi and crackles. ABDOMEN: Soft, nontender. No mass palpable. LEGS: No edema, no swelling. NERVOUS SYSTEM: No focal deficits. SKIN: Multiple inflammatory lesions present in both lower legs with cellulitis. LABS: WBC 2.5, hemoglobin 9.1. ASSESSMENT: 1. Atrial fibrillation with rapid ventricular rate with presyncope with a controlled ventricular rate now currently. 2. History of chronic persistent atrial fibrillation. 3. Pancytopenia, secondary to chemotherapy for cutaneous B-cell lymphoma. 4. Bilateral leg lesions and possible cellulitis. 5. Leukopenia. 6. Possible neutropenic sepsis. 7. Hyponatremia, resolved. 8. Morbid obesity with BMI 52.9. 9. Diabetes mellitus type 2. 10. Hypomagnesemia. 11. Troponin 0.05 indeterminate. 12. Increased TSH. 13. Hypoalbuminemia, mild. 14. History of asthma. 15. Coronary artery disease, history of cardiac catheterization and stenting. 16. Hypertension. 17. Hyperlipidemia. 18. Gait dysfunction with degenerative joint disease. 19. History of prostate disorder. 20. History of skin disease. 21. History of head injury. 22. 2.6 cm pulmonary nodule posterior midlung lateral view per chest x-ray. 23. Hypokalemia. RECOMMENDATIONS AND DISCUSSION: In this 66-year-old gentleman present with multiple complex medical issues, we will monitor the patient closely. Continue the current medications. Continue symptomatic treatment. Otherwise, continue the empiric antibiotics and continue to monitor. Further recommendations to follow. I will also obtain Infectious Disease evaluation also.
[2016-12-31] MEDS: SODIUM CHLORIDE 0.9% 1,000 ML IV SCH (19:41)
[2016-12-31] MEDS: ATORVASTATIN 10 MG TAB PO SCH (20:55)
[2016-12-31] MEDS: FINASTERIDE 5 MG TAB PO SCH (20:55)
[2016-12-31 20:58] LABS: Glucose,Whole Blood 160 mg/dL (75-99)
[2017-01-01] MEDS: CEFEPIME 2 GM in SODIUM CHLORIDE 0.9% 50 ML IVPB SCH ×3 (00:06→16:07)
[2017-01-01 06:18] LABS: Glucose,Whole Blood 149 mg/dL (75-99)
[2017-01-01] MEDS: VANCOMYCIN 2,500 MG in SODIUM CHLORIDE 0.9% 500 ML IVPB SCH ×3 (06:36→17:06)
[2017-01-01] MEDS: INSULIN LISPRO (humaLOG) 300 UNIT/3 ML VIAL SQ SCH ×4 (06:36→21:39)
[2017-01-01] MEDS: metFORMIN 500 MG TAB PO SCH ×2 (06:36→17:06)
[2017-01-01] MEDS: PANTOPRAZOLE 40 MG TABLET PO SCH (06:37)
[2017-01-01 06:41] LABS: Anisocytosis Slight; Basophils % (A) 0 %; CH 32.2; CHCM 33.3; Eosinophils # (A) 0.1 k/uL (0-0.7); Eosinophils % (A) 2 %; HCT 29.3 % (39.0-53.0); HDW 3.21; HGB 9.5 gm/dL (13.0-17.5); Luc # (Auto) 0.09; Luc % (Auto) 2; Lymphocytes # (A) 0.4 k/uL (1.0-4.8); Lymphocytes % (A) 10 %; MCH 31.6 pg (25.0-35.0); MCHC 32.5 g/dL (31.0-37.0); MCV 97.4 fL (80.0-100.0); Macrocytosis Slight; Mean Platelet Volume 8.8; Monocytes # (A) 0.2 k/uL (0-1.0); Monocytes % (A) 5 %; Neutrophils # (A) 3.6 k/uL (1.3-7.7); Neutrophils % (A) 82 %; RBC 3.01 m/uL (4.30-5.90); RDW 16.6 % (11.5-15.5); WBC 4.4 k/uL (3.8-10.6); WBC (Perox) 4.92
[2017-01-01 06:55] LABS: Anion Gap 8 mmol/L; Blood Urea Nitrogen 19 mg/dL (9-20); Calcium 8.1 mg/dL (8.4-10.2); Carbon Dioxide 29 mmol/L (22-30); Chloride 99 mmol/L (98-107); Glucose 138 mg/dL (74-99); Magnesium 1.8 mg/dL (1.6-2.3); Non-African American GFR(MDRD) >60 (>60 ml/min/1.73 sqM); Potassium 3.7 mmol/L (3.5-5.1); Sodium 136 mmol/L (137-145)
[2017-01-01] MEDS: FLUTICASONE 50MCG/SPRAY NASAL 16GM EA NOSTRIL SCH (08:13)
[2017-01-01] MEDS: ASPIRIN 81 MG CHEW PO SCH (08:13)
[2017-01-01] MEDS: HYDROCHLOROTHIAZIDE 25 MG TAB PO SCH (08:14)
[2017-01-01] MEDS: OXYBUTYNIN 10 MG TAB.ER.24 PO SCH (08:14)
[2017-01-01] MEDS: LISINOPRIL 20 MG TAB PO SCH (08:14)
[2017-01-01] MEDS: EDOXABAN TOSYLATE 60 MG TABLET PO SCH (08:14)
[2017-01-01] MEDS: METOPROLOL TARTRATE 25 MG TAB PO SCH ×3 (08:14→21:38)
--- NOTE | 2017-01-01 10:28 | PN ---
Hamlet is a 66-year-old gentleman with complex and multiple medical problems including coronary artery disease, hypertension, dyslipidemia, morbid obesity, lymphoma, and chronic atrial fibrillation on Savaysa was admitted to hospital with weakness and had some leg edema and possible cellulitis. The patient is in A. fib with controlled ventricular rate. Heart rate is 78 beats per minute. He will probably be discharged home tomorrow. On exam, vital signs are stable. Chest exam reveals good air entry bilaterally without any crackles or rhonchi. Heart exam reveals first and second heart sounds, irregular rhythm. Abdomen is soft. Exam of extremities reveals bilateral lower 1+ edema with chronic stasis changes. Labs show that hemoglobin is 9.5. Potassium is 3.7. Creatinine is 0.9. ASSESSMENT: 1. Atrial fibrillation with controlled ventricular rate. 2. Coronary artery disease, status post angioplasty. 3. Hypertension. 4. Dyslipidemia. 5. Lymphoma. PLAN: The patient is doing well. He will continue with current medications.
[2017-01-01 11:58] LABS: Glucose,Whole Blood 180 mg/dL (75-99)
[2017-01-01] MEDS: SODIUM CHLORIDE 0.9% 1,000 ML IV SCH (16:07)
[2017-01-01 16:47] LABS: Glucose,Whole Blood 105 mg/dL (75-99)
[2017-01-01 20:44] LABS: Glucose,Whole Blood 172 mg/dL (75-99)
[2017-01-01] MEDS: FINASTERIDE 5 MG TAB PO SCH (21:38)
[2017-01-01] MEDS: ATORVASTATIN 10 MG TAB PO SCH (21:38)
[2017-01-02] MEDS: CEFEPIME 2 GM in SODIUM CHLORIDE 0.9% 50 ML IVPB SCH ×2 (04:30→15:53)
[2017-01-02] MEDS ORDERED: VANCOMYCIN TROUGH DUE 1 EACH MISC MISCELLANE ONE (05:00)
[2017-01-02 05:42] LABS: Anisocytosis Slight; Basophils % (A) 0 %; CH 32.2; CHCM 33.3; Eosinophils # (A) 0.1 k/uL (0-0.7); Eosinophils % (A) 2 %; HCT 28.9 % (39.0-53.0); HDW 3.36; HGB 9.2 gm/dL (13.0-17.5); Luc % (Auto) 2; Lymphocytes # (A) 0.5 k/uL (1.0-4.8); Lymphocytes % (A) 11 %; MCHC 31.9 g/dL (31.0-37.0); MCV 97.3 fL (80.0-100.0); Macrocytosis Slight; Mean Platelet Volume 9.7; Monocytes # (A) 0.3 k/uL (0-1.0); Monocytes % (A) 5 %; Neutrophils % (A) 80 %; RBC 2.97 m/uL (4.30-5.90); WBC (Perox) 5.13
[2017-01-02 05:50] LABS: Glucose,Whole Blood 136 mg/dL (75-99)
[2017-01-02 05:57] LABS: Anion Gap 10 mmol/L; Blood Urea Nitrogen 17 mg/dL (9-20); Calcium 7.9 mg/dL (8.4-10.2); Carbon Dioxide 26 mmol/L (22-30); Chloride 99 mmol/L (98-107); Glucose 124 mg/dL (74-99); Non-African American GFR(MDRD) >60 (>60 ml/min/1.73 sqM); Potassium 3.5 mmol/L (3.5-5.1); Sodium 135 mmol/L (137-145)
[2017-01-02] MEDS: VANCOMYCIN 2,500 MG in SODIUM CHLORIDE 0.9% 500 ML IVPB SCH (06:38)
[2017-01-02] MEDS: INSULIN LISPRO (humaLOG) 300 UNIT/3 ML VIAL SQ SCH ×4 (06:38→21:14)
[2017-01-02] MEDS: PANTOPRAZOLE 40 MG TABLET PO SCH (06:39)
[2017-01-02] MEDS: metFORMIN 500 MG TAB PO SCH ×2 (06:39→17:03)
[2017-01-02] MEDS: METOPROLOL TARTRATE 25 MG TAB PO SCH ×3 (08:34→21:04)
[2017-01-02] MEDS: FLUTICASONE 50MCG/SPRAY NASAL 16GM EA NOSTRIL SCH (08:34)
[2017-01-02] MEDS: EDOXABAN TOSYLATE 60 MG TABLET PO SCH (08:34)
[2017-01-02] MEDS: OXYBUTYNIN 10 MG TAB.ER.24 PO SCH (08:34)
[2017-01-02] MEDS: HYDROCHLOROTHIAZIDE 25 MG TAB PO SCH (08:35)
[2017-01-02] MEDS: LISINOPRIL 20 MG TAB PO SCH (08:35)
[2017-01-02] MEDS: ASPIRIN 81 MG CHEW PO SCH (08:46)
--- NOTE | 2017-01-02 11:37 | PN ---
DATE OF SERVICE: 01/01/2017. INTERVAL HISTORY: Mr. Welsh is a 61 year old gentleman with a known history of multiple medical problems including coronary artery disease, hypertension, hyperlipidemia, morbid obesity, lymphoma, currently undergoing chemotherapy, and chronic atrial fibrillation on anticoagulation came to the hospital with complaints of generalized weakness and leg swelling and patient was also found to have atrial fibrillation with RVR. heart rate is controlled now. Patient has been treated for bilateral lower extremity cellulitis with improved redness today. Patient says that pain and redness improved today. Denies any complaints of chest pain or shortness of breath. Cardiology saw the patient. REVIEW OF SYSTEMS: CONSTITUTIONAL: No fever/chills. RESPIRATORY: No cyanosis. CARDIORESPIRATORY: No chest pain, shortness of breath. ABDOMEN: No nausea, vomiting. GENITOURINARY: negative All other 14 point review of systems are negative except as reported above. Current medications include ventilation, aspirin, atorvastatin, cefepime, Proscar, fluticasone nasal spray, hydrochlorothiazide, Humalog, Restoril, Metformin, Metoprolol, Vancomycin, Nitrostat, Zofran, Ditropan, Protonix and Vancomycin. PHYSICAL EXAMINATION: A 66-year-old male, morbid obese, lying in bed comfortably. Awake, alert, oriented x3. Blood pressure is105/67, pulse is 82, respiratory rate 18, pulse ox is 97% on room air. HEENT: Atraumatic, normocephalic. Neck is supple no JVD. S1, S2 heard. No murmurs, no gallop, irregular pulse and rhythm. ABDOMEN: Soft, obese, bowel sounds present symptoms. CENTRAL NERVOUS SYSTEM: Alert and oriented times 3, no focal deficit. EXTREMITIES: Bilateral lower extremity 3+ edema with extensive redness of the thighs scabbed wounds on bilateral lower extremities. No purulent drainage noted. PSYCHIATRIC: Cooperative. Nonsuicidal. SKIN: No rash or skin lesions except the above. LABORATORY DATA: WBC 4.4, hemoglobin 9.5, platelets 96, hemoglobin ( ) 3.7, chloride 99, bicarbonate 29, BUN 19, creatinine 0.95, calcium 8.1, magnesium 1.8. IMPRESSION: 1. Atrial fibrillation with rapid ventricular rate. Rate is controlled now. 2. Chronic persistent atrial fibrillation. on anticoagulation 3. Pancytopenia secondary to chemotherapy for cutaneous B cell lymphoma. 4. Bilateral lower extremity leg lesions with of cellulitis. Continue with broad spectrum antibiotics. 5. Hyponatremia, resolved. 6. Morbid obesity with body mass index of 52.9. 7. Diabetes mellitus type 2. 8. Hypomagnesemia. 9. Elevated troponin levels. 10. Elevated TSH levels. 11. Mild hypoalbuminemia with mild to moderate protein calorie malnutrition. 12. History of asthma. 13. History of coronary artery disease with history of stent placement. 14. Hypertension. 15. Hyperlipidemia. 16. Gait dysfunction with degenerative joint disease. 17. History of prostate disorder. 18. History of skin disease. 19. History f head injury. 20. 2.6 cm pulmonary nodule, posterior mid lung, lateral view. Per chest x-ray. 21. Hypokalemia, improved. DISCUSSION AND PLAN: Will continue with the antibiotics vancomycin and cefepime and continue with anticoagulation. Rate is controlled at this time. Continue the home medications. Cardiology is following this patient and is to be discharged tomorrow with more clinical improvement. YOLY
[2017-01-02 11:53] LABS: Glucose,Whole Blood 139 mg/dL (75-99)
[2017-01-02] MEDS: SODIUM CHLORIDE 0.9% 1,000 ML IV SCH (12:02)
--- NOTE | 2017-01-02 13:13 | CONS ---
DATE OF CONSULTATION: 01/01/2017 REASON FOR CONSULTATION: Bilateral lower extremity cellulitis and wound. HISTORY OF PRESENT ILLNESS: The patient is a 66 -year-old male with past medical history significant for lymphoma for which the patient is under the care of Dr. Haddad and is getting his chemotherapy. The patient felt really weak after getting his chemo on 12/29/2016. That he was not able to remove and almost passed out, however, he did not lose any consciousness. Subsequently, the patient was brought into the ER and has been evaluated by the ER physician. The patient noticed to be in A. fib with RVR. He also noticed to be pancytopenia with a white count 0.5. Subsequently admitted to the hospital for management of his underlying cardiac condition. The patient did have CT angiogram that was negative for PE. Also had an echocardiogram done as well. The patient did have significant swelling over the both legs with development of pustules especially on the right leg with redness. The patient did have some dull pain 3 to 4 out of 10 and no radiation. Patient did mention that he has had this problem with a skin lesion off and on for a long time for which the patient treating it at home and has not seen anyone in [facility] with significant amount of cellulitis. The patient was started on cefepime and Vanco, dose adjusted, Infectious disease was consulted for further recommendation regarding antibiotic therapy. REVIEW OF SYSTEMS: Positive for weakness. No high grade fever. EYES: No complaint. ENT: No complaint. RESPIRATORY: As per HPI. CARDIOVASCULAR: As per HPI. GENITOURINARY: No complaint. GASTROINTESTINAL: No complaint. MUSCULOSKELETAL: No complaint. INTEGUMENTARY: As per HPI. PSYCHOLOGIC: No complaint. ENDOCRINE: No complaint. NEUROLOGICAL: No complaint. PAST MEDICAL HISTORY: Hypertension, hyperlipidemia, history of prostate disorder, lymphoma, asthma. PAST SURGICAL HISTORY: Tonsillectomy, multiple surgeries on the hands with skin graft, PTCA and stent and Mediport placement. SOCIAL HISTORY: Patient denies smoking; occasionally drinks, denies any drug use. FAMILY HISTORY: Mother with history of lung cancer. ALLERGY TO PENICILLIN. However has tolerated cephalosporin without any problem. Medications include the patient is currently on: 1. Aspirin. 3. Lipitor. 4. Cefepime. 5. Proscar. 6. Flonase. 7. Hydrochlorothiazide. 8. Humalog. 9. Zestril. 10. Glucophage. 11. Lopressor. 12. Zofran. 13. Ditropan. 14. Protonix. 15. Vancomycin. On examination his blood pressure is 113/58 with a pulse of 85, temperature is 97.6, he is 99% on room air. General description is an elderly male, up in the chair in no distress. No tachypnea or accessory muscles of respiration use. HEENT examination shows pallor. There is no scleral icterus. Oral mucous membrane is dry. NECK: Trachea central. There is no thyromegaly. LUNGS: Unlabored breathing. Clear to auscultation anteriorly. HEART: S1, S2. Regular rate and rhythm. ABDOMEN: Soft, no tenderness. Bilateral lower extremities with pustules mostly on the right leg and surrounding redness, slightly warm to touch. Some superficial ulceration on the left leg but no purulence of the leg. NEUROLOGICAL: The patient is awake, alert, oriented x3. Mood and affect normal. LABS: Hemoglobin 9.5, white count up to 4.4. BUN of 17, creatinine 0.95. He did have cultures on the leg which is presumptive MRSA. Blood cultures negative so far. Diagnostic impression and plan: Patient with bilateral lower extremity cellulitis and also pustules and some superficial laceration. Cultures obtained from the leg showed gram positive cocci in a patient with underlying lymphoma status post chemo at the hospital with weakness and evidence of pancytopenia though is white count did show improvement in the last few days. PLAN: 1. Will continue the patient on vancomycin while awaiting for the culture to finalize, Cefepime dose can be cut back to 2 gm q12 however, the patient not neutropenic. 2. We will apply ABD to the area with blisters and Aquacel silver to the open area.. 3. Will follow up on clinical condition and cultures to further adjust the medication if needed. Thank you for this consultation. We will follow this patient along with you. YOLY
[2017-01-02 17:00] LABS: Glucose,Whole Blood 127 mg/dL (75-99)
[2017-01-02] MEDS: ATORVASTATIN 10 MG TAB PO SCH (21:03)
[2017-01-02] MEDS: VANCOMYCIN 2,250 MG in SODIUM CHLORIDE 0.9% 500 ML IVPB SCH (21:03)
[2017-01-02] MEDS: FINASTERIDE 5 MG TAB PO SCH (21:04)
[2017-01-02 21:15] LABS: Glucose,Whole Blood 264 mg/dL (75-99)
--- NOTE | 2017-01-02 21:15 | PN ---
DATE OF SERVICE: 01/02/2017 REASON FOR FOLLOW-UP: Bilateral extremity wounds and cellulitis. INTERVAL HISTORY: The patient's breathing has improved. Patient denies having any chest pain. Occasional cough. No abdominal pain. The patient denies significant pain to the leg area, which has been wrapped up. On examination, her blood pressure is 128/60 with a pulse of 74, temperature 97.4. He is 98% on room air. GENERAL DESCRIPTION: An elderly female, up in the chair, in no distress. RESPIRATORY SYSTEM: Unlabored breathing. Clear to auscultation anteriorly. HEART: S1, S2 regular rate and rhythm. ABDOMEN: Soft, no tenderness. EXTREMITIES: Bilateral leg wounds. No obvious drainage on the dressing. LABS: Hemoglobin is 9.1, wbc 5.0 with a BUN of 17, creatinine of 0.90. Wound cultures staph . Blood cultures negative. DIAGNOSTIC IMPRESSION AND PLAN: Patient with bilateral lower extremity pustules and superficial ulceration with secondary cellulitis. Culture with presumptive MRSA. Patient currently on vancomycin and it will be continued. Adjustments will be made in the antibiotics depending on culture report. Continue local wound care with Aquacel Silver along with Ishan wrap to keep the swelling down. Continue supportive care. MTDD
[2017-01-03] MEDS: CEFEPIME 2 GM in SODIUM CHLORIDE 0.9% 50 ML IVPB SCH ×2 (04:15→17:49)
[2017-01-03 05:38] LABS: Glucose,Whole Blood 111 mg/dL (75-99)
[2017-01-03] MEDS: INSULIN LISPRO (humaLOG) 300 UNIT/3 ML VIAL SQ SCH ×4 (06:11→22:23)
[2017-01-03] MEDS: PANTOPRAZOLE 40 MG TABLET PO SCH (06:40)
[2017-01-03] MEDS: metFORMIN 500 MG TAB PO SCH ×2 (06:40→17:55)
[2017-01-03 07:04] LABS: Anisocytosis Slight; Basophils % (A) 0 %; CH 32.1; CHCM 33.2; Eosinophils % (A) 1 %; HCT 27.8 % (39.0-53.0); HGB 9.1 gm/dL (13.0-17.5); Luc % (Auto) 2; Lymphocytes # (A) 0.5 k/uL (1.0-4.8); Lymphocytes % (A) 11 %; MCH 31.9 pg (25.0-35.0); MCHC 32.7 g/dL (31.0-37.0); MCV 97.5 fL (80.0-100.0); Macrocytosis Slight; Mean Platelet Volume 8.6; Monocytes # (A) 0.3 k/uL (0-1.0); Monocytes % (A) 6 %; Neutrophils # (A) 3.7 k/uL (1.3-7.7); Neutrophils % (A) 80 %; RBC 2.85 m/uL (4.30-5.90); RDW 17.1 % (11.5-15.5); WBC 4.6 k/uL (3.8-10.6); WBC (Perox) 4.99
[2017-01-03 07:26] LABS: Anion Gap 8 mmol/L; Blood Urea Nitrogen 13 mg/dL (9-20); Calcium 7.8 mg/dL (8.4-10.2); Carbon Dioxide 29 mmol/L (22-30); Chloride 100 mmol/L (98-107); Glucose 115 mg/dL (74-99); Non-African American GFR(MDRD) >60 (>60 ml/min/1.73 sqM); Potassium 3.6 mmol/L (3.5-5.1); Sodium 137 mmol/L (137-145)
[2017-01-03] MEDS: VANCOMYCIN 2,250 MG in SODIUM CHLORIDE 0.9% 500 ML IVPB SCH ×2 (09:16→22:24)
[2017-01-03] MEDS: LISINOPRIL 20 MG TAB PO SCH (09:18)
[2017-01-03] MEDS: HYDROCHLOROTHIAZIDE 25 MG TAB PO SCH (09:18)
[2017-01-03] MEDS: METOPROLOL TARTRATE 25 MG TAB PO SCH ×3 (09:18→22:22)
[2017-01-03] MEDS: ASPIRIN 81 MG CHEW PO SCH (09:18)
[2017-01-03] MEDS: EDOXABAN TOSYLATE 60 MG TABLET PO SCH (09:19)
[2017-01-03] MEDS: FLUTICASONE 50MCG/SPRAY NASAL 16GM EA NOSTRIL SCH (09:19)
[2017-01-03] MEDS: OXYBUTYNIN 10 MG TAB.ER.24 PO SCH (09:19)
--- NOTE | 2017-01-03 09:20 | PN ---
DATE OF SERVICE: 01/02/2017 INTERVAL HISTORY: Mr. Welsh is a 66-year-old male with multiple medical problems including coronary artery disease, hypertension, hyperlipidemia, morbid obesity and lymphoma, currently undergoing chemotherapy and chronic atrial fibrillation, admitted to hospital with generalized weakness and leg swelling. Patient also found to have atrial fibrillation with rapid ventricular rate, rate is controlled now. Currently being treated for bilateral lower extremity cellulitis and pustular lesions. Wound cultures are growing MRSA and currently antibiotics in the form of vancomycin is being used. ID is following the patient. REVIEW OF SYSTEMS: CONSTITUTIONAL: No fever, no rigors. RESPIRATORY: No cough or sputum production. ABDOMEN: No nausea, no vomiting. No abdominal pain. GENITOURINARY: Negative. ENDOCRINE: Negative. PSYCHIATRIC: Negative. SKIN: Negative. MUSCULOSKELETAL: Negative. All other 14-point review of systems negative except as above. CURRENT MEDICATIONS: Reviewed. PHYSICAL EXAMINATION: A 66-year-old male lying in the bed. Awake, alert, oriented x3. Appears to be in no apparent distress. VITALS: Blood pressure is 126/60. Pulse is 86, respirations 20, temperature afebrile, pulse ox 97% on room air. HEENT: Atraumatic, normocephalic. Neck is supple. No JVD. CVS EXAM: S1, S2 heard. No murmurs, no gallop, irregularly irregular rhythm. LUNGS: Bilateral air entry is present. Decreased breath sounds basally. Nonlabored breathing. Abdomen is soft, obese. Bowels sounds are heard. PIPELINES MANAGER: Awake, alert, oriented x3. No focal deficit. EXTREMITIES: Bilateral lower extremity swelling that redness extending up to the thigh area and pustule lesions. No purulent discharge noted. PSYCHIATRIC: Cooperative. LABORATORY DATA: WBC 5.0, hemoglobin 9.2, platelets 114. Sodium 135, potassium 3.5, chloride 99, bicarb is 26. BUN 17, creatinine 0.9. Calcium 7.9, vancomycin trough level is 20.1. IMPRESSION: 1. Atrial fibrillation with rapid ventricular rate. Rate is controlled now. Continue with anticoagulation. 2. Chronic persistent atrial fibrillation, on anticoagulation with Edoxaban. 3. Bilateral lower extremity cellulitis and pustule lesions with wound cultures growing methicillin-resistant Staphylococcus aureus. 4. Pancytopenia secondary to chemotherapy for cutaneous B-cell lymphoma. 5. Hyponatremia, resolved. 6. Morbid obesity, body mass index of 52.9. 7. Diabetes mellitus type 2. 8. Hypomagnesemia, improved. 9. Elevated troponin level. 10. Elevated TSH level. 11. Mild hypoalbuminemia with mild to moderate protein calorie malnutrition. 12. History of asthma. 13. History of coronary artery disease and stent placement. 14. Hypertension. 15. Hyperlipidemia. 16. Gait dysfunction with degenerative joint disease. 17. History of prostate disorder. 18. History of skin disease. 19. History of head injury. 20. A 2.6 cm pulmonary nodule posterior to mid lung, lateral view per chest x-ray. 21. Hypokalemia, improved. DISCUSSION AND PLAN: Continue on current management. Continue with antibiotics in the form of vancomycin and cefepime. Wound cultures are growing MRSA. Final antibiotic recommendation per ID once wound cultures are finalized. Otherwise, continue the current management. Anticipate discharge with final wound culture report and antibiotic recommendations in the next 24 hours.
--- NOTE | 2017-01-03 11:58 | CDI ---
In responding to this query, please exercise your independent professional judgment. The [facility] Coding Staff and Clinical Documentation Specialists appreciate your assistance in clarifying documentation, maintaining compliance with coding guidelines, accurately documenting patients condition and capturing severity of illness. The fact that a question is asked does not imply that any particular answer is desired or expected. Communication forms are a method of clarifying documentation and are not made part of the Legal Health Record. Thank you in advance for your clarification. Last Revision, September 2015 Santos Landry [address] [facility] [facility] [place] [address] Documentation Clarification Form Date: 01/03/2017 11:32:00 AM From: Samia Johnson Admit Date: 12/29/2016 12:30:00 PM Patient Name: Hamlet Welsh Visit Number: [id number] Discharge Date: Dr. Jami Ortiz Possible neutropenic sepsis is documented in the progress notes on 12/29/16 and Patient history/risk factors: Diabetes mellitus type 2, Hypertension, Morbid obesity, Asthma, Coronary artery disease, Clinical Indicators: Admitted for evaluation of weakness, heart racing. Found atrial fibrillation with rapid ventricular rate, pancytopenia and skin infection. Per documentation no chest pain, No fever. Lab findings: WBC 0.5, NA+136, PLT 102, Chest X-ray: 2.6 cm pulmonary nodule posterior lung, primary cancer, or metastatic disease: Vital Signs: 124/59 124 20 97.4 98 % RA Treatment: IV Vancomycin, Cefepime IV Monitor Labs ID Consults: the patient has significant swelling over both legs with development of pustules especially on the right leg with redness. Bilateral lower extremity cellulitis and some superficial laceration. The patient is neutropenic. Wound culture left leg: Methicillin rest S. aureus Blood Culture Preliminary 96 hrs: Negative In your professional opinion, can you please clarify possible neutropenic sepsis : Neutropenic sepsis ruled in Neutropenic sepsis ruled out Other Unable to determine Please document in your progress notes and discharge summary in order to capture severity of illness and risk of mortality. Include clinical findings that support your diagnosis. FYI: Press F11 to launch patient chart. Place X here if this finding has no clinical significance, is not applicable or if you are not able to provide any additional documentation. MTDD
[2017-01-03 12:12] LABS: Glucose,Whole Blood 128 mg/dL (75-99)
[2017-01-03] MEDS ORDERED: MINERAL OIL-WHITE PETROLATUM 120 GM JAR TOPICAL PRN (12:48)
[2017-01-03] MEDS: SODIUM CHLORIDE 0.9% 1,000 ML IV SCH (13:55)
[2017-01-03 17:42] LABS: Glucose,Whole Blood 144 mg/dL (75-99)
--- NOTE | 2017-01-03 18:14 | P.PN ---
Subjective This is a 66-year-old gentleman with history of cutaneous B-cell lymphoma that is admitted to the hospital with tenderness erythema and is bilateral lower extremities. Patient apparently was noted to have cellulitis. Patient is 10 days off his recent chemotherapy on Neulasta support patient was noted to be pancytopenic. Denies having any fevers, chills, nausea, vomiting or diarrhea. Patient was started on intravenous empiric antibody therapy and has improved on the right lower extremity especially area patient did have some blisters which were removed by infectious disease physician. Wound cultures were noted to have MRSA. Objective - Vital Signs Vital signs: Vital Signs Temp 97.2 F L 01/03/17 15:30 Pulse 79 01/03/17 15:30 Resp 18 01/03/17 15:30 BP 120/59 01/03/17 15:30 Pulse Ox 100 01/03/17 15:30 Intake & Output 01/02/17 01/03/17 01/03/17 18:59 06:59 18:59 Intake Total 436 730 460 Output Total 1400 600 Balance -964 130 460 Weight 184.6 kg 185.7 kg Intake: IV 730 Cefepime 2 gm In Sodium 50 Chloride 0.9% 50 ml @ 100 mls/hr IVPB ONCE STA Rx# :[id number] Sodium Chloride 0.9% 1, 180 000 ml @ 20 mls/hr IV . Q24H JASBIR Rx#:[id number] Vancomycin 2,500 mg In 500 Sodium Chloride 0.9% 500 ml @ 167 mls/hr IVPB Q12H JASBIR Rx#:[id number] Intake, IV Titration 200 Amount Sodium Chloride 0.9% 1, 200 000 ml @ 20 mls/hr IV . Q24H JASBIR Rx#:[id number] Oral 236 460 Output: Urine 1400 600 Other: Voiding Method Urinal Urinal Urinal # Voids 2 # Bowel Movements 1 - Exam Head there is a lipoma noted on the occipital area Neck is supple no JVD Lungs good air entry clear to auscultation Heart S1-S2 heard regular rate and rhythm no murmurs appreciated Abdomen is obese nontender no organomegaly Lower extremities chronic venous changes with right lower extremity with previous sites of blisters with associated erythema tender to palpation. Neurologically no focal motor or sensory deficits noted. - Labs CBC & Chem 7: 01/03/17 06:27 01/03/17 06:27 Labs: Abnormal Lab Results - Last 24 Hours (Table) 01/02/17 01/03/17 01/03/17 Range/Units 21:13 05:36 06:27 RBC 2.85 L (4.30-5.90) m/uL Hgb 9.1 L (13.0-17.5) gm/dL Hct 27.8 L (39.0-53.0) % RDW 17.1 H (11.5-15.5) % Plt Count 129 L (150-450) k/uL Lymphocytes # 0.5 L (1.0-4.8) k/uL Glucose (74-99) mg/dL POC Glucose (mg/dL) 264 H 111 H (75-99) mg/dL Calcium (8.4-10.2) mg/dL 01/03/17 01/03/17 01/03/17 Range/Units 06:27 12:11 17:28 RBC (4.30-5.90) m/uL Hgb (13.0-17.5) gm/dL Hct (39.0-53.0) % RDW (11.5-15.5) % Plt Count (150-450) k/uL Lymphocytes # (1.0-4.8) k/uL Glucose 115 H (74-99) mg/dL POC Glucose (mg/dL) 128 H 144 H (75-99) mg/dL Calcium 7.8 L (8.4-10.2) mg/dL Microbiology - Last 24 Hours (Table) 12/31/16 17:45 Gram Stain - Final Leg - Left Wound Culture - Final Methicillin resist S. aureus 12/29/16 15:41 Blood Culture - Preliminary Blood No Growth after 96 hours Assessment and Plan Plan: #1 chronic atrial fibrillation on anticoagulation with the edoxaban #2 febrile neutropenia is ruled out #3 chemotherapy induced pancytopenia #4 hyponatremia that is improved #4 diabetes mellitus type 2 #6 multiple electrolyte abnormalities #7 bilateral lower extremity cellulitis with MRSA #8 history of CAD #9 hypertension #10 lipoma #11 morbid obesity Plan Continue ongoing care continue wound care with Aquasol. Patient will likely need intravenous antibiotic therapy for a prolonged period of time at follow-up with infectious diseases. Patient will likely be discharged home in the next 24 hours.
--- NOTE | 2017-01-03 18:52 | PN ---
DATE OF SERVICE: 01/03/2017 Reason for follow-up is bilateral lower extremity wound and cellulitis. INTERVAL HISTORY: The patient is afebrile. He has been breathing comfortably. Denies significant chest pain or shortness of breath. No abdominal pain. Overall pain, swelling and redness of the right lower extremity improved. No drainage. On examination, blood pressure 114/57, pulse of 98, temperature 97.1. He is 100% on room air. General description is an elderly male, up in the chair in no distress. RESPIRATORY SYSTEM: Unlabored breathing. Clear to auscultation anteriorly. HEART: S1, S2. Regular rate and rhythm. ABDOMEN: Soft. No tenderness. Right leg overall swelling and redness have improved. LABS: Hemoglobin is 9.1, white count 4.6 with a BUN of 13, creatinine 0.89. DIAGNOSTIC IMPRESSION AND PLAN: Patient with bilateral lower extremity wound with secondary cellulitis. Culture positive for methicillin-resistant Staphylococcus aureus. Antibiotics will continue in the form of vancomycin, pharmacy to dose, for at least 2 weeks. Local wound care with Aquacel Silver and Ishan wrap compression. Continue supportive care.
[2017-01-03 20:19] LABS: Glucose,Whole Blood 169 mg/dL (75-99)
[2017-01-03] MEDS: ATORVASTATIN 10 MG TAB PO SCH (22:23)
[2017-01-03] MEDS: FINASTERIDE 5 MG TAB PO SCH (22:23)
[2017-01-04 07:59] LABS: Glucose,Whole Blood 133 mg/dL (75-99)
[2017-01-04] MEDS: PANTOPRAZOLE 40 MG TABLET PO SCH (08:18)
[2017-01-04] MEDS: metFORMIN 500 MG TAB PO SCH ×2 (08:18→18:00)
[2017-01-04] MEDS: EDOXABAN TOSYLATE 60 MG TABLET PO SCH (08:18)
[2017-01-04] MEDS: VANCOMYCIN 2,250 MG in SODIUM CHLORIDE 0.9% 500 ML IVPB SCH ×2 (08:18→21:11)
[2017-01-04] MEDS: ASPIRIN 81 MG CHEW PO SCH (08:18)
[2017-01-04] MEDS: OXYBUTYNIN 10 MG TAB.ER.24 PO SCH (08:19)
[2017-01-04] MEDS: METOPROLOL TARTRATE 25 MG TAB PO SCH ×3 (08:19→21:23)
[2017-01-04] MEDS: HYDROCHLOROTHIAZIDE 25 MG TAB PO SCH (08:19)
[2017-01-04] MEDS: LISINOPRIL 20 MG TAB PO SCH (08:19)
[2017-01-04] MEDS: FLUTICASONE 50MCG/SPRAY NASAL 16GM EA NOSTRIL SCH (08:19)
[2017-01-04] MEDS: INSULIN LISPRO (humaLOG) 300 UNIT/3 ML VIAL SQ SCH ×4 (08:20→21:11)
[2017-01-04 11:54] LABS: Glucose,Whole Blood 163 mg/dL (75-99)
[2017-01-04] MEDS: SODIUM CHLORIDE 0.9% 1,000 ML IV SCH (12:57)
[2017-01-04 17:29] LABS: Glucose,Whole Blood 116 mg/dL (75-99)
--- NOTE | 2017-01-04 18:10 | P.PN ---
Subjective This is a 66-year-old gentleman with history of cutaneous B-cell lymphoma that is admitted to the hospital with tenderness erythema and is bilateral lower extremities. Patient apparently was noted to have cellulitis. Patient is 10 days off his recent chemotherapy on Neulasta support patient was noted to be pancytopenic. Denies having any fevers, chills, nausea, vomiting or diarrhea. Patient was started on intravenous empiric antibody therapy and has improved on the right lower extremity especially area patient did have some blisters which were removed by infectious disease physician. Wound cultures were noted to have MRSA. 01/04/2017 No other overnight events are reported. Patient denies having fevers, chills, nausea, vomiting. Patient currently has decided that he will not be able to care for himself at home hence will need to go to a correction. Objective - Vital Signs Vital signs: Vital Signs Temp 97.3 F L 01/04/17 15:00 Pulse 86 01/04/17 15:00 Resp 18 01/04/17 15:00 BP 132/70 01/04/17 15:00 Pulse Ox 100 01/04/17 15:00 Intake & Output 01/03/17 01/04/17 01/04/17 18:59 06:59 18:59 Intake Total 460 722 Output Total 1000 650 Balance 460 -278 -650 Intake: IV 500 Vancomycin 2,250 mg In 500 Sodium Chloride 0.9% 500 ml @ 167 mls/hr IVPB Q12H [facility] Rx#:[id number] Oral 460 222 Output: Urine 1000 650 Other: Voiding Method Urinal Toilet Toilet Urinal Urinal # Voids 200 - Exam Head there is a lipoma noted on the occipital area Neck is supple no JVD Lungs good air entry clear to auscultation Heart S1-S2 heard regular rate and rhythm no murmurs appreciated Abdomen is obese nontender no organomegaly Lower extremities chronic venous changes with right lower extremity with previous sites of blisters with associated erythema tender to palpation. Neurologically no focal motor or sensory deficits noted. - Labs CBC & Chem 7: 01/03/17 06:27 01/03/17 06:27 Labs: Abnormal Lab Results - Last 24 Hours (Table) 01/03/17 01/04/17 01/04/17 Range/Units 20:13 07:20 11:29 POC Glucose (mg/dL) 169 H 133 H 163 H (75-99) mg/dL 01/04/17 Range/Units 17:24 POC Glucose (mg/dL) 116 H (75-99) mg/dL Microbiology - Last 24 Hours (Table) 12/29/16 15:41 Blood Culture - Preliminary Blood No Growth after 120 hours Assessment and Plan Plan: #1 chronic atrial fibrillation on anticoagulation with the edoxaban #2 febrile neutropenia is ruled out #3 chemotherapy induced pancytopenia #4 hyponatremia that is improved #4 diabetes mellitus type 2 #6 multiple electrolyte abnormalities #7 bilateral lower extremity cellulitis with MRSA #8 history of CAD #9 hypertension #10 lipoma #11 morbid obesity Plan Continue ongoing care await recommendations by infectious diseases in regards to timing of the vancomycin therapy. Wound care is to continue. Patient will likely be discharged to [facility] in the next 24 hours.
[2017-01-04 20:40] LABS: Glucose,Whole Blood 149 mg/dL (75-99)
[2017-01-04] MEDS: FINASTERIDE 5 MG TAB PO SCH (21:11)
[2017-01-04] MEDS: ATORVASTATIN 10 MG TAB PO SCH (21:12)
--- NOTE | 2017-01-04 23:51 | PN ---
DATE OF SERVICE: 01/04/2017 REASON FOR FOLLOWUP: Bilateral lower extremity wound with secondary cellulitis, MRSA. INTERVAL HISTORY: The patient is afebrile; has been breathing comfortably. Denies significant chest pain, shortness of breath or cough. No abdominal pain. Overall pain, swelling and redness to the legs have improved. On examination, blood pressure is 132/70 with a pulse of 86, temperature 97.3. He is 100% on room air. General description is an elderly male up in the chair in no distress. RESPIRATORY SYSTEM: Unlabored breathing. Clear to auscultation anteriorly. HEART: S1, S2. Regular rate and rhythm. ABDOMEN: Soft. No tenderness. Bilateral lower extremities with superficial wounds. No slough tissue. Surrounding redness has improved. LABS: Hemoglobin is 9.1. White count 4.6. BUN of 13, creatinine 0.88. Blood culture has been negative. DIAGNOSTIC IMPRESSION AND PLAN: Patient with bilateral lower extremity folliculitis with secondary cellulitis. Culture has been positive for MRSA. Patient is currently on vancomycin and responding to it. Plan will be to continue the patient on vancomycin, Pharmacy to dose, for another 2 weeks along with Aquacel Silver dressing to the leg wounds followed by Ishan wrap and outpatient followup. YOLY
[2017-01-05 07:23] LABS: Glucose,Whole Blood 129 mg/dL (75-99)
[2017-01-05 07:49] VITALS: BP 112/69; PULSE 77; RESP 16; TEMP 97.6
[2017-01-05] MEDS ORDERED: VANCOMYCIN TROUGH DUE 1 EACH MISC MISCELLANE ONE (08:00)
[2017-01-05] MEDS: INSULIN LISPRO (humaLOG) 300 UNIT/3 ML VIAL SQ SCH ×2 (08:01→12:31)
[2017-01-05] MEDS: VANCOMYCIN 2,250 MG in SODIUM CHLORIDE 0.9% 500 ML IVPB SCH (08:13)
[2017-01-05] MEDS: metFORMIN 500 MG TAB PO SCH (08:15)
[2017-01-05] MEDS: METOPROLOL TARTRATE 25 MG TAB PO SCH (08:16)
[2017-01-05] MEDS: EDOXABAN TOSYLATE 60 MG TABLET PO SCH (08:16)
[2017-01-05] MEDS: LISINOPRIL 20 MG TAB PO SCH (08:16)
[2017-01-05] MEDS: FLUTICASONE 50MCG/SPRAY NASAL 16GM EA NOSTRIL SCH (08:16)
[2017-01-05] MEDS: HYDROCHLOROTHIAZIDE 25 MG TAB PO SCH (08:16)
[2017-01-05] MEDS: PANTOPRAZOLE 40 MG TABLET PO SCH (08:16)
[2017-01-05] MEDS: ASPIRIN 81 MG CHEW PO SCH (08:16)
[2017-01-05] MEDS: OXYBUTYNIN 10 MG TAB.ER.24 PO SCH (08:17)
[2017-01-05 09:05] LABS: Anion Gap 9 mmol/L; Blood Urea Nitrogen 11 mg/dL (9-20); Calcium 8.2 mg/dL (8.4-10.2); Carbon Dioxide 29 mmol/L (22-30); Chloride 99 mmol/L (98-107); Glucose 133 mg/dL (74-99); Non-African American GFR(MDRD) >60 (>60 ml/min/1.73 sqM); Potassium 3.6 mmol/L (3.5-5.1); Sodium 137 mmol/L (137-145)
--- NOTE | 2017-01-05 11:52 | PN ---
DATE OF SERVICE: 01/05/2017 Reason for followup is MRSA, right lower extremity wound and secondary cellulitis. INTERVAL HISTORY: The patient is afebrile, has been breathing comfortably. Denies significant chest pain or shortness of breath or cough. No abdominal pain or any diarrhea. On examination, blood pressure is 124/69 with a pulse of 77, temperature of 97.6. He is 99% on room air. General description is an elderly male, up in the bed in no distress. RESPIRATORY SYSTEM: Unlabored breathing. Clear to auscultation anteriorly. HEART: S1, S2, regular rate and rhythm. ABDOMEN: Soft, no tenderness. EXTREMITIES: Bilateral lower extremity wounds have currently dried out, the redness have improved. No drainage. LABS: BUN of 11, creatinine is 0.83, vanco trough is on the high side with 32. DIAGNOSTIC IMPRESSION AND PLAN: Patient with methicillin-resistant Staphylococcus aureus right lower extremity wound and secondary cellulitis. Vanco dose will be adjusted to keep the trough around 15. Patient will continue on vancomycin. Currently 2 gm daily for another 2 weeks with pharmacy to follow the dose and careful monitoring of his kidney function. Continue supportive care. MTDD
[2017-01-05 12:11] LABS: Glucose,Whole Blood 162 mg/dL (75-99)
[2017-01-05] MEDS: SODIUM CHLORIDE 0.9% 1,000 ML IV SCH (12:29)
--- NOTE | 2017-01-05 13:45 | P.DS ---
Providers Date of admission: 12/29/16 12:30 Attending physician: Paris Kwan Consults: 12/29/16 15:15 Consult Physician Routine Consulting Provider: [facility] Consult Reason/Comments: afib Do you want consulting provider notified?: Yes 12/29/16 17:52 Consult Physician Urgent Consulting Provider: Troy Fagan Consult Reason/Comments: Elevated Troponins Do you want consulting provider notified?: Yes, Notify in am 12/31/16 16:22 Consult Physician Routine Consulting Provider: Timmy Vazquez Consult Reason/Comments: cellulitis Do you want consulting provider notified?: Yes 01/01/17 15:36 Consult Physician Routine Consulting Provider: Kaylynn Spears Consult Reason/Comments: INFECTION LOWER LEGS Do you want consulting provider notified?: Already Contacted Primary care physician: Migue Yung [facility] Course: This is a 66-year-old gentleman with history of cutaneous B-cell lymphoma that is admitted to the hospital with tenderness erythema and is bilateral lower extremities. Patient apparently was noted to have cellulitis. Patient is 10 days off his recent chemotherapy on Neulasta support patient was noted to be pancytopenic. Denies having any fevers, chills, nausea, vomiting or diarrhea. Patient was started on intravenous empiric antibody therapy and has improved on the right lower extremity especially area patient did have some blisters which were removed by infectious disease physician. Wound cultures were noted to have MRSA. 01/04/2017 No other overnight events are reported. Patient denies having fevers, chills, nausea, vomiting. Patient currently has decided that he will not be able to care for himself at home hence will need to go to a shelter. Objective - Vital Signs Vital signs: Vital Signs Temp 97.3 F L 01/04/17 15:00 Pulse 86 01/04/17 15:00 Resp 18 01/04/17 15:00 BP 132/70 01/04/17 15:00 Pulse Ox 100 01/04/17 15:00 Intake & Output 01/03/17 01/04/17 01/04/17 18:59 06:59 18:59 Intake Total 460 722 Output Total 1000 650 Balance 460 -175 -650 Intake: IV 500 Vancomycin 2,250 mg In 500 Sodium Chloride 0.9% 500 ml @ 167 mls/hr IVPB Q12H [facility] Rx#:[id number] Oral 460 222 Output: Urine 1000 650 Other: Voiding Method Urinal Toilet Toilet Urinal Urinal # Voids 200 - Exam Head there is a lipoma noted on the occipital area Neck is supple no JVD Lungs good air entry clear to auscultation Heart S1-S2 heard regular rate and rhythm no murmurs appreciated Abdomen is obese nontender no organomegaly Lower extremities chronic venous changes with right lower extremity with previous sites of blisters with associated erythema tender to palpation. Neurologically no focal motor or sensory deficits noted. - Labs CBC & Chem 7: 01/03/17 06:27 01/03/17 06:27 Labs: Abnormal Lab Results - Last 24 Hours (Table) 01/03/17 01/04/17 01/04/17 Range/Units 20:13 07:20 11:29 POC Glucose (mg/dL) 169 H 133 H 163 H (75-99) mg/dL 01/04/17 Range/Units 17:24 POC Glucose (mg/dL) 116 H (75-99) mg/dL Microbiology - Last 24 Hours (Table) 12/29/16 15:41 Blood Culture - Preliminary Blood No Growth after 120 hours Assessment and Plan Plan: #1 chronic atrial fibrillation on anticoagulation with the edoxaban #2 febrile neutropenia is ruled out #3 chemotherapy induced pancytopenia #4 hyponatremia that is improved #4 diabetes mellitus type 2 #6 multiple electrolyte abnormalities #7 bilateral lower extremity cellulitis with MRSA #8 history of CAD #9 hypertension #10 lipoma #11 morbid obesity Conditions Patient is recommended to have vancomycin for the next 2 weeks. However patient 's vancomycin trough is 32. Patient should have a repeat kidney function and vancomycin trough level tomorrow in the evening thereafter pharmacy to be dose vancomycin trough around 15 as a target. Patient should have wound care with Aquasol on the bilateral lower extremities. To be changed every day. Patient is to follow-up with Dr. Linder in 3-[address] Haddad in 5-6 days to decide regarding chemotherapy thereafter. Patient Condition at Discharge: Fair Plan - Discharge Summary Discharge Medication List Finasteride 5 mg PO HS 04/18/14 [History] Hydrochlorothiazide 25 mg PO QAM 04/18/14 [History] Lisinopril 20 mg PO QAM 04/18/14 [History] Simvastatin 20 mg PO HS 04/18/14 [History] Aspirin 81 mg PO HS 04/22/14 [History] Nitroglycerin Sl Tabs [Nitrostat] 0.4 mg SUBLINGUAL Q5M PRN #20 tab 04/23/14 [Rx ] Fluticasone Nasal [place] [Flonase Nasal [place]] 1 spray EA NOSTRIL DAILY 10/26/16 [History] metFORMIN HCL [metFORMIN HCL ER] 500 mg PO DAILY 10/26/16 [History] Albuterol Sulfate [Proair Hfa] 1 - 2 puff INHALATION RT-Q6H PRN 12/29/16 [ History] Edoxaban Tosylate [Savaysa] 60 mg PO DAILY 12/29/16 [History] Metoprolol Tartrate [Lopressor] 25 mg PO BID 12/29/16 [History] Omeprazole 20 mg PO DAILY 12/29/16 [History] Ondansetron [Zofran] 4 mg PO Q6H PRN 12/29/16 [History] Oxybutynin Chloride [Ditropan XL] 10 mg PO DAILY 12/29/16 [History] Follow up Appointment(s)/Referral(s): Migue Hicks III, MD [Primary Care Provider] - 1-2 days Jacqueline Espinoza MD [STAFF PHYSICIAN] - 1 Week Activity/Diet/Wound Care/Special Instructions: Follow up with Dr. Haddad in office after discharge from [facility] after receiving IV antibiotics. Chemotherapy postponed until follow up per Kiera Mccallum NP. *Diet - consistent carb *Isolation- Contact/MRSA/reverse iso due to chemo and low WBC count *Activity - As tolerated *Right Subclavian infusaport - change needle access every 7 days -date of last access - 01/05/17 -Maintain/Flush per facility protocol *Wound care - Right lower extremity - Aquacell Ag to the open area - Change daily Bilateral lower extremities -ABD pad to blistered areas and then ZA wrap to both legs just above the toes to below the knees- Change daily
[2017-01-05 15:12] VITALS: BMI 54.0
[2017-01-06] MEDS ORDERED: VANCOMYCIN 2,000 MG in SODIUM CHLORIDE 0.9% 500 ML IVPB SCH (09:00)
== END 2017-01-05 15:34 | DRG 308 ==
LOC: EC 09:38 → 6SEL 12:30 → 5MS5E 01-03 14:10
PROVIDERS: ADMIT Hospitalist; ATTEND Hospitalist
DX: I48.1 Persistent atrial fibrillation (principal); D61.810 Antineoplastic chemotherapy induced pancytopenia; C83.30 Diffuse large B-cell lymphoma, unspecified site; E44.0 Moderate protein-calorie malnutrition; L03.115 Cellulitis of right lower limb; E87.1 Hypo-osmolality and hyponatremia; L03.116 Cellulitis of left lower limb; Z68.43 Body mass index [BMI] 50.0-59.9, adult; S81.801A Unspecified open wound, right lower leg, initial encounter; S81.802A Unspecified open wound, left lower leg, initial encounter; E83.42 Hypomagnesemia; E66.01 Morbid (severe) obesity due to excess calories; T45.1X5A Adverse effect of antineoplastic and immunosuppressive drugs, initial encounter; E86.0 Dehydration; E87.6 Hypokalemia; I25.10 Atherosclerotic heart disease of native coronary artery without angina pectoris; E11.9 Type 2 diabetes mellitus without complications; J45.909 Unspecified asthma, uncomplicated; D17.9 Benign lipomatous neoplasm, unspecified; E78.5 Hyperlipidemia, unspecified; I45.10 Unspecified right bundle-branch block; M19.90 Unspecified osteoarthritis, unspecified site; G89.29 Other chronic pain; M54.9 Dorsalgia, unspecified; Z87.828 Personal history of other (healed) physical injury and trauma; R26.9 Unspecified abnormalities of gait and mobility; R91.1 Solitary pulmonary nodule; I10 Essential (primary) hypertension; N40.0 Benign prostatic hyperplasia without lower urinary tract symptoms; Z71.3 Dietary counseling and surveillance; Z96.642 Presence of left artificial hip joint; Z95.5 Presence of coronary angioplasty implant and graft; Z82.49 Family history of ischemic heart disease and other diseases of the circulatory system; Z79.01 Long term (current) use of anticoagulants; Z79.84 Long term (current) use of oral hypoglycemic drugs; Z79.82 Long term (current) use of aspirin; Z79.899 Other long term (current) drug therapy
CPT/HCPCS: 36415; 71020; 71275; 80048; 80053; 80061; 80202; 81001; 82009; 82550; 82553; 83036; 83735; 84100; 84439; 84443; 84484; 85025; 85610; 85730; 87040; 87070; 87077; 87086; 87186; 87205; 93005; 93306; 94760; 96361; 96365; 96366; 96368; 99285

== ENCOUNTER 2017-02-01 17:22 | Inpatient (IN) | payer BC, MEDICARE ==
[2017-02-01] MEDS ORDERED: SODIUM CHLORIDE 0.9% 500 ML IV STA (17:27)
[2017-02-01] MEDS ORDERED: ACETAMINOPHEN TAB 500 MG TAB PO STA (17:27)
[2017-02-01] MEDS ORDERED: IBUPROFEN 600 MG TAB PO STA (17:27)
--- NOTE | 2017-02-01 17:33 | ED ---
General Adult HPI - General Stated complaint: Weakness,Fall Time Seen by Provider: 02/01/17 17:22 Source: RN notes reviewed - History of Present Illness Initial comments: This is a 66-year-old male who presents to the emergency department stating that he has become weak over the last couple of days. Patient states he had fallen today did not hurt anything on the falx he went down slowly. Patient states she's had a little bit of a sore throat little bit of a cough. Patient denies any difficulty breathing patient denies any chest pain. Patient denies headache patient denies numbness weakness. Patient denies any ear pain. Patient denies any neck pain or stiffness. Patient denies abdominal pain. Patient states he has been nauseated all day today. Patient states he did have a bout of diarrhea this morning. She does have a history of lymphoma and has been getting chemotherapy. Patient denies any new lesions or rashes. Patient states the legs look like they always do. Patient has chronic cellulitis and edema to both legs. - Related Data Home Medications Medication Instructions Recorded Confirmed Finasteride 5 mg PO 04/18/14 02/01/17 Hydrochlorothiazide 25 mg PO [facility] 04/18/14 02/01/17 Lisinopril 20 mg PO [facility] 04/18/14 02/01/17 Simvastatin 20 mg PO 04/18/14 02/01/17 Aspirin 81 mg PO 04/22/14 02/01/17 Fluticasone Nasal [place] [Flonase 1 spray EA NOSTRIL DAILY 10/26/16 02/01/17 Nasal [place]] metFORMIN HCL [metFORMIN HCL ER] 500 mg PO DAILY 10/26/16 02/01/17 Albuterol Sulfate [Proair Hfa] 1 - 2 puff INHALATION RT-Q6H PRN 12/29/16 Edoxaban Tosylate [Savaysa] 60 mg PO DAILY 12/29/16 02/01/17 Omeprazole 20 mg PO DAILY 12/29/16 02/01/17 Ondansetron [Zofran] 4 mg PO Q6H PRN 12/29/16 02/01/17 Oxybutynin Chloride [Ditropan XL] 10 mg PO DAILY 12/29/16 02/01/17 Metoprolol Tartrate [Lopressor] 25 mg PO TID 01/25/17 02/01/17 Previous Rx's Medication Instructions Recorded Nitroglycerin Sl Tabs [Nitrostat] 0.4 mg SUBLINGUAL Q5M PRN #20 tab 04/23/14 Allergies Allergy/AdvReac Type Severity Reaction Status Date / Time Penicillins Allergy Unknown Verified 02/01/17 18:50 Childhood Review of Systems ROS Statement: Those systems with pertinent positive or pertinent negative responses have been documented in the HPI. ROS Other: All systems not noted in ROS Statement are negative. Past Medical History Past Medical History: Atrial Fibrillation, Asthma, Coronary Artery Disease (CAD) , Cancer, Hyperlipidemia, Hypertension, Osteoarthritis (OA), Prostate Disorder Additional Past Medical History / Comment(s): 2016 diagnosed with lymphoma and is currently receiving chemo (one more treatment to go), currently has sores bilateral legs and very dry feet bilaterally with bilateral pedal edema, BPH, back pain with walking, NIDDM type II, hand injury while in [place] requiring multiple graft etc surgeries, infusaport infection. History of Any Multi-Drug Resistant Organisms: MRSA Date of last positivie culture/infection: 12/31/16 MDRO Source:: Left Leg Past Surgical History: Heart Catheterization, Joint Replacement, Orthopedic Surgery, Tonsillectomy Additional Past Surgical History / Comment(s): MUTIPLE SURGERIES ON HANDS WITH SKIN GRAFTS (POST INJURY IN [place]), INFUSAPORT, PTCA 2013, colonoscopy/ polypectomy, total L hip arthroplasty. Past Anesthesia/Blood Transfusion Reactions: No Reported Reaction Additional Past Anesthesia/Blood Transfusion Reaction / Comment(s): TROUBLE WAKING UP long ago after surgery in the [employer]. 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 He uses a cane to ambulate. He drives. Smoking Status: Never smoker Past Alcohol Use History: Occasional Past Drug Use History: None Reported - Past Family History Mother Family Medical History: COPD, Diabetes Mellitus Additional Family Medical History / Comment(s): Mother of a MD at the age of 61 yrs. She was a heavy smoker. Father History Unknown: Yes General Exam - General Exam Comments Initial Comments: GENERAL: Patient is well-developed and well-nourished. Patient is nontoxic and well- hydrated and is in mild distress. ENT: Neck is soft and supple. No significant lymphadenopathy is noted. Oropharynx is clear. Moist mucous membranes. Neck has full range of motion without eliciting any pain. EYES: The sclera were anicteric and conjunctiva were pink and moist. Extraocular movements were intact and pupils were equal round and reactive to light. Eyelids were unremarkable. PULMONARY: Unlabored respirations. Good breath sounds bilaterally. No audible rales rhonchi or wheezing was noted. CARDIOVASCULAR: There is a regular rate and rhythm without any murmurs gallops or rubs. ABDOMEN: Soft and nontender with normal bowel sounds. No palpable organomegaly was noted. There is no palpable pulsatile mass. SKIN: Skin is clear with no lesions or rashes and otherwise unremarkable. NEUROLOGIC: Patient is alert and oriented x3. Cranial nerves II through XII are grossly intact. Motor and sensory are also intact. Normal speech, volume and content. Symmetrical smile. MUSCULOSKELETAL: Normal extremities with adequate strength and full range of motion. Chronic cellulitic bilaterally 2+ edema LYMPHATICS: No significant lymphadenopathy is noted PSYCHIATRIC: Normal psychiatric evaluation. Course Vital Signs 02/01/17 02/01/17 02/01/17 17:26 18:37 19:39 Temperature 103.3 F H 99.0 F Pulse Rate 113 H 103 H 108 H Respiratory 20 20 Rate Blood Pressure 198/79 126/63 O2 Sat by Pulse 96 95 Oximetry Medical Decision Making - Medical Decision Making EKG shows atrial fibrillation with rapid ventricular response at 104 bpm QRS is 152 QT interval 388 QTC is 510. I compared this EKG is an old EKG is no acute changes noted. Chest x-ray shows no acute abnormality. I spoke with Dr. Haddad and he wanted the patient started on Zosyn and Vanco and I stated the patient on Zosyn emergency department or to the ankle for the floor. No obvious source of infection was found however the patient had a white count of 0.1. - Lab Data Result diagrams: 02/01/17 17:35 02/01/17 17:35 Lab Results 02/01/17 02/01/17 02/01/17 Range/Units 17:35 17:35 17:35 WBC 0.1 L* (3.8-10.6) k/uL RBC 3.16 L (4.30-5.90) m/uL Hgb 10.1 L (13.0-17.5) gm/dL Hct 30.3 L (39.0-53.0) % MCV 95.9 (80.0-100.0) fL MCH 31.9 (25.0-35.0) pg MCHC 33.2 (31.0-37.0) g/dL RDW 15.1 (11.5-15.5) % Plt Count 68 L D (150-450) k/uL Differential Comment Manual Slide Review Performed RBC Morphology Normal PT (9.0-12.0) sec INR (<1.1) APTT (22.0-30.0) sec Sodium 135 L (137-145) mmol/L Potassium 3.1 L (3.5-5.1) mmol/L Chloride 93 L (98-107) mmol/L Carbon Dioxide 29 (22-30) mmol/L Anion Gap 13 mmol/L BUN 28 H (9-20) mg/dL Creatinine 1.02 (0.66-1.25) mg/dL Est GFR (MDRD) Af Amer >60 (>60 ml/min/1.73 sqM) Est GFR (MDRD) Non-Af >60 (>60 ml/min/1.73 sqM) Glucose 242 H (74-99) mg/dL Plasma Lactic Acid Walter (0.7-2.0) mmol/L Calcium 8.4 (8.4-10.2) mg/dL Magnesium 1.5 L (1.6-2.3) mg/dL Total Bilirubin 1.5 H (0.2-1.3) mg/dL AST 27 (17-59) U/L ALT 31 (21-72) U/L Alkaline Phosphatase 56 (38-126) U/L Total Creatine Kinase 60 (55-170) U/L CK-MB (CK-2) 0.6 (0.0-2.4) ng/mL CK-MB (CK-2) Rel Index 1.0 Troponin I 0.093 H* (0.000-0.034) ng/mL Total Protein 6.2 L (6.3-8.2) g/dL Albumin 3.4 L (3.5-5.0) g/dL Urine Color Urine Appearance (Clear) Urine pH (5.0-8.0) Ur Specific [place] (1.001-1.035) Urine Protein (Negative) Urine Glucose (UA) (Negative) Urine Ketones (Negative) Urine Blood (Negative) Urine Nitrate (Negative) Urine Bilirubin (Negative) Urine Urobilinogen (<2.0) mg/dL Ur Leukocyte Esterase (Negative) Urine RBC (0-5) /hpf Urine WBC (0-5) /hpf Ur Squamous Epith Cells (0-4) /hpf Urine Bacteria (None) /hpf Granular Casts (0) /lpf Urine Mucus (None) /hpf Influenza Type A RNA (Not Detectd) Influenza Type B (PCR) (Not Detectd) 02/01/17 02/01/17 02/01/17 Range/Units 17:35 17:35 17:35 WBC (3.8-10.6) k/uL RBC (4.30-5.90) m/uL Hgb (13.0-17.5) gm/dL Hct (39.0-53.0) % MCV (80.0-100.0) fL MCH (25.0-35.0) pg MCHC (31.0-37.0) g/dL RDW (11.5-15.5) % Plt Count (150-450) k/uL Differential Comment Manual Slide Review RBC Morphology PT (9.0-12.0) sec INR (<1.1) APTT (22.0-30.0) sec Sodium (137-145) mmol/L Potassium (3.5-5.1) mmol/L Chloride (98-107) mmol/L Carbon Dioxide (22-30) mmol/L Anion Gap mmol/L BUN (9-20) mg/dL Creatinine (0.66-1.25) mg/dL Est GFR (MDRD) Af Amer (>60 ml/min/1.73 sqM) Est GFR (MDRD) Non-Af (>60 ml/min/1.73 sqM) Glucose (74-99) mg/dL Plasma Lactic Acid Walter 2.5 H* (0.7-2.0) mmol/L Calcium (8.4-10.2) mg/dL Magnesium (1.6-2.3) mg/dL Total Bilirubin (0.2-1.3) mg/dL AST (17-59) U/L ALT (21-72) U/L Alkaline Phosphatase (38-126) U/L Total Creatine Kinase (55-170) U/L CK-MB (CK-2) (0.0-2.4) ng/mL CK-MB (CK-2) Rel Index Troponin I (0.000-0.034) ng/mL Total Protein (6.3-8.2) g/dL Albumin (3.5-5.0) g/dL Urine Color Yellow Urine Appearance Cloudy (Clear) Urine pH 5.5 (5.0-8.0) Ur Specific [place] 1.011 (1.001-1.035) Urine Protein 1+ H (Negative) Urine Glucose (UA) Trace H (Negative) Urine Ketones Negative (Negative) Urine Blood Trace H (Negative) Urine Nitrate Negative (Negative) Urine Bilirubin Negative (Negative) Urine Urobilinogen <2.0 (<2.0) mg/dL Ur Leukocyte Esterase Negative (Negative) Urine RBC 2 (0-5) /hpf Urine WBC 3 (0-5) /hpf Ur Squamous Epith Cells <1 (0-4) /hpf Urine Bacteria Moderate H (None) /hpf Granular Casts 4 (0) /lpf Urine Mucus Rare H (None) /hpf Influenza Type A RNA Not Detected (Not Detectd) Influenza Type B (PCR) Not Detected (Not Detectd) 02/01/17 Range/Units 18:04 WBC (3.8-10.6) k/uL RBC (4.30-5.90) m/uL Hgb (13.0-17.5) gm/dL Hct (39.0-53.0) % MCV (80.0-100.0) fL MCH (25.0-35.0) pg MCHC (31.0-37.0) g/dL RDW (11.5-15.5) % Plt Count (150-450) k/uL Differential Comment Manual Slide Review RBC Morphology PT 14.3 H (9.0-12.0) sec INR 1.5 (<1.1) APTT 28.3 (22.0-30.0) sec Sodium (137-145) mmol/L Potassium (3.5-5.1) mmol/L Chloride (98-107) mmol/L Carbon Dioxide (22-30) mmol/L Anion Gap mmol/L BUN (9-20) mg/dL Creatinine (0.66-1.25) mg/dL Est GFR (MDRD) Af Amer (>60 ml/min/1.73 sqM) Est GFR (MDRD) Non-Af (>60 ml/min/1.73 sqM) Glucose (74-99) mg/dL Plasma Lactic Acid Walter (0.7-2.0) mmol/L Calcium (8.4-10.2) mg/dL Magnesium (1.6-2.3) mg/dL Total Bilirubin (0.2-1.3) mg/dL AST (17-59) U/L ALT (21-72) U/L Alkaline Phosphatase (38-126) U/L Total Creatine Kinase (55-170) U/L CK-MB (CK-2) (0.0-2.4) ng/mL CK-MB (CK-2) Rel Index Troponin I (0.000-0.034) ng/mL Total Protein (6.3-8.2) g/dL Albumin (3.5-5.0) g/dL Urine Color Urine Appearance (Clear) Urine pH (5.0-8.0) Ur Specific [place] (1.001-1.035) Urine Protein (Negative) Urine Glucose (UA) (Negative) Urine Ketones (Negative) Urine Blood (Negative) Urine Nitrate (Negative) Urine Bilirubin (Negative) Urine Urobilinogen (<2.0) mg/dL Ur Leukocyte Esterase (Negative) Urine RBC (0-5) /hpf Urine WBC (0-5) /hpf Ur Squamous Epith Cells (0-4) /hpf Urine Bacteria (None) /hpf Granular Casts (0) /lpf Urine Mucus (None) /hpf Influenza Type A RNA (Not Detectd) Influenza Type B (PCR) (Not Detectd) Critical Care Time Critical Care Time: Yes Total Critical Care Time: 35 Disposition Clinical Impression: Leukopenia, Sepsis, Dehydration, Elevated troponin, Febrile illness, acute Disposition: ADMITTED IP TO THIS HOSP Referrals: Migue Hicks III, MD [Primary Care Provider] - 1-2 days Time of Disposition: 19:41
[2017-02-01 18:03] LABS: ALT 31 U/L (21-72); AST 27 U/L (17-59); Alkaline Phosphatase 56 U/L (38-126); Anion Gap 13 mmol/L; Blood Urea Nitrogen 28 mg/dL (9-20); Calcium 8.4 mg/dL (8.4-10.2); Carbon Dioxide 29 mmol/L (22-30); Chloride 93 mmol/L (98-107); Glucose 242 mg/dL (74-99); Magnesium 1.5 mg/dL (1.6-2.3); Non-African American GFR(MDRD) >60 (>60 ml/min/1.73 sqM); Potassium 3.1 mmol/L (3.5-5.1); Sodium 135 mmol/L (137-145); Total Bilirubin 1.5 mg/dL (0.2-1.3); Total Protein 6.2 g/dL (6.3-8.2)
[2017-02-01 18:11] LABS: CH 31.9; CHCM 33.4; HCT 30.3 % (39.0-53.0); HDW 2.84; HGB 10.1 gm/dL (13.0-17.5); MCH 31.9 pg (25.0-35.0); MCHC 33.2 g/dL (31.0-37.0); MCV 95.9 fL (80.0-100.0); Mean Platelet Volume 9.2; RBC 3.16 m/uL (4.30-5.90); RDW 15.1 % (11.5-15.5); WBC (Perox) 0.19
[2017-02-01 18:12] LABS: Appearance,Urine Cloudy (Clear); Bacteria,Urine Moderate /hpf; Bilirubin,Urine Negative (Negative); Glucose,Urine (UA) Trace (Negative); Granular Casts,Urine 4 /lpf (0); Ketones,Urine Negative (Negative); Leukocyte Esterase,Urine Negative (Negative); Mucus,Urine Rare /hpf; Nitrite,Urine Negative (Negative); PH, Urine 5.5 (5.0-8.0); Particle Count 6923; Protein,Urine 1+ (Negative); RBC,Urine 2 /hpf (0-5); Specific Gravity,Urine 1.011 (1.001-1.035); Squamous Epithelial Cell,Urine <1 /hpf (0-4); UA Billing (MACRO vs. MICRO) MICRO; Urobilinogen,Urine <2.0 mg/dL (<2.0); WBC,Urine 3 /hpf (0-5)
[2017-02-01 18:16] LABS: WBC 0.1 k/uL (3.8-10.6)
[2017-02-01 18:24] LABS: Creatine Kinase MB 0.6 ng/mL (0.0-2.4)
[2017-02-01 18:25] LABS: Troponin I 0.093 ng/mL (0.000-0.034)
[2017-02-01 18:32] LABS: INR 1.5 (<1.1); Partial Thromboplastin Time 28.3 sec (22.0-30.0); Prothrombin Time 14.3 sec (9.0-12.0)
--- NOTE | 2017-02-01 18:36 | XR ---
EXAMINATION TYPE: XR chest 2V DATE OF EXAM: 02/01/2017 6:32 PM COMPARISON: 12/29/2016 HISTORY: Weakness TECHNIQUE: Frontal and lateral views of the chest are obtained. FINDINGS: There is no heart failure nor confluent pneumonic infiltrate. Heart size is normal. There is right central venous catheter with tip in the superior vena cava. There is a rounded 2 cm density over the mid thoracic spine related to a lateral osteophyte. IMPRESSION: No active cardiopulmonary disease. No change.
[2017-02-01 18:43] LABS: Add Differential Manual Differential
[2017-02-01 18:47] LABS: Manual Review Performed; RBC Morphology Normal
[2017-02-01] MEDS ORDERED: SODIUM CHLORIDE 0.9% 500 ML IV ONE (19:04)
[2017-02-01] MEDS ORDERED: SODIUM CHLORIDE 0.9% 1,000 ML IV ONE (19:41)
[2017-02-01] MEDS ORDERED: IV VANCOMYCIN PER PHARMACY 1 EACH MISC MISCELLANE PRN (19:46)
[2017-02-01] MEDS ORDERED: VANCOMYCIN 2,500 MG in SODIUM CHLORIDE 0.9% 500 ML IVPB STA (19:55)
[2017-02-01] MEDS ORDERED: MAGNESIUM SULFATE-D5W PMX 1 GM in DEXTROSE/WATER 1 100ML.BAG IVPB ONE (21:00)
[2017-02-01] MEDS ORDERED: NITROGLYCERIN SL TABS 0.4 MG TAB SUBLINGUAL PRN (21:31)
[2017-02-01] MEDS ORDERED: ALBUTEROL NEBULIZED 2.5 MG/3 ML INHALATION PRN (21:31)
[2017-02-01] MEDS ORDERED: ONDANSETRON 4 MG TAB PO PRN (21:31)
[2017-02-01 21:33] LABS: Glucose,Whole Blood 250 mg/dL (75-99)
[2017-02-01] MEDS ORDERED: Magnesium Replacement Protocol 1 EACH MISC MISCELLANE PRN (21:36)
[2017-02-01] MEDS ORDERED: Potassium Replacement Protocol 1 EACH MISC MISCELLANE PRN (21:36)
[2017-02-01] MEDS ORDERED: TEMAZEPAM 15 MG CAP PO PRN (21:38)
[2017-02-01] MEDS ORDERED: HYDROcodone/APAP 5-325MG 1 EACH TAB PO PRN (21:38)
[2017-02-01] MEDS: CEFEPIME 2 GM in SODIUM CHLORIDE 0.9% 50 ML IVPB SCH (21:53)
[2017-02-01] MEDS: MAGNESIUM SULFATE-D5W PMX 1 GM in DEXTROSE/WATER 1 100ML.BAG IVPB SCH (22:53)
[2017-02-01] MEDS: METOPROLOL TARTRATE 25 MG TAB PO SCH (22:54)
[2017-02-02] MEDS ORDERED: PIPERACILLIN-TAZOBACTAM 3.375 GM in DEXTROSE/WATER 1 50ML.BAG IVPB SCH
[2017-02-02] MEDS: MAGNESIUM SULFATE-D5W PMX 1 GM in DEXTROSE/WATER 1 100ML.BAG IVPB SCH (00:19)
[2017-02-02] MEDS: POTASSIUM CHLORIDE 10 MEQ in WATER FOR INJECTION 1 100ML.BAG IVPB SCH ×2 (01:42→02:33)
[2017-02-02 06:30] LABS: Aty Lym Flag Marked; CH 31.6; CHCM 32.8; HCT 27.4 % (39.0-53.0); HDW 2.94; HGB 8.9 gm/dL (13.0-17.5); Immature Gran Flag Marked; MCH 31.2 pg (25.0-35.0); MCHC 32.3 g/dL (31.0-37.0); MCV 96.5 fL (80.0-100.0); Mean Platelet Volume 8.7; RBC 2.84 m/uL (4.30-5.90); RDW 14.7 % (11.5-15.5); WBC (Perox) 0.15
[2017-02-02 06:40] LABS: Glucose,Whole Blood 168 mg/dL (75-99)
[2017-02-02 06:47] LABS: Anion Gap 8 mmol/L; Blood Urea Nitrogen 23 mg/dL (9-20); Calcium 7.8 mg/dL (8.4-10.2); Carbon Dioxide 30 mmol/L (22-30); Chloride 97 mmol/L (98-107); Glucose 170 mg/dL (74-99); Non-African American GFR(MDRD) >60 (>60 ml/min/1.73 sqM); Sodium 135 mmol/L (137-145)
[2017-02-02 06:49] LABS: WBC 0.2 k/uL (3.8-10.6)
[2017-02-02 06:51] LABS: Potassium 2.9 mmol/L (3.5-5.1)
[2017-02-02] MEDS ORDERED: Potassium Replacement Protocol 1 EACH MISC MISCELLANE PRN ×3 (07:09→23:24)
[2017-02-02] MEDS ORDERED: metFORMIN 500 MG TAB PO SCH (07:30)
[2017-02-02 08:03] LABS: Hemoglobin A1C 6.6 % (4.2-6.1)
[2017-02-02 08:24] LABS: Add Differential Manual Differential
[2017-02-02 08:40] LABS: Tear Drop Cells Present
[2017-02-02] MEDS: POTASSIUM CHLORIDE 10 MEQ, LIDOCAINE 2% INJ 10 MG in SODIUM CHLORIDE 0.9% 100 ML IV SCH ×3 (08:41→12:24)
[2017-02-02] MEDS: CEFEPIME 2 GM in SODIUM CHLORIDE 0.9% 50 ML IVPB SCH ×3 (08:41→23:26)
[2017-02-02] MEDS: OXYBUTYNIN 10 MG TAB.ER.24 PO SCH (08:42)
[2017-02-02] MEDS: METOPROLOL TARTRATE 25 MG TAB PO SCH ×3 (08:42→20:26)
[2017-02-02] MEDS: LISINOPRIL 20 MG TAB PO SCH (08:42)
[2017-02-02] MEDS: FLUTICASONE 50MCG/SPRAY NASAL 16GM EA NOSTRIL SCH (08:48)
[2017-02-02] MEDS: PANTOPRAZOLE 40 MG TABLET PO SCH (08:48)
[2017-02-02] MEDS ORDERED: HYDROCHLOROTHIAZIDE 25 MG TAB PO SCH (09:00)
[2017-02-02] MEDS ORDERED: POTASSIUM CHLORIDE ER 20 MEQ TAB.ER PO SCH (09:00)
--- NOTE | 2017-02-02 09:14 | P.CONS ---
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 He received PCHOP with Neulasta starting in August and completed on 12/22/2016. He was then hospitalized December 29 through January 05 at which time he was treated for MRSA infection and cellulitis to the right lower extremity and seen by Dr. Spears. He was on IV vancomycin which was discontinued at the time of his transfer due to trough of 34. He went to [facility] for rehabilitation and patient states he did very well there and gained strength and was discharged home. He was subsequently started on chemotherapy which he does not know the name. He states he has had some nausea and not able to drink fluids. He had a fall because his lower extremities gave out on him and he slowly let himself down to the floor. He did have abrasion to the left shoulder but no other injuries were noted. He came into [facility] emergency center for evaluation. Chest x-ray showed no acute findings. He was febrile with a temperature 103.3. Patient does not recall having a fever at home but his thought he probably did. White count 0.1 with repeated 0.2. Patient noted to have pancytopenia and hypokalemia. Influenza testing was negative for A and B. Urinalysis was cloudy, protein 1+, glucose trace, blood trace, bacteria moderate. Patient states he was able to eat his entire breakfast this morning and nausea is improved. He is taking in water. He states he scraped the lateral side of his right lower extremity while getting chemotherapy and there is a small amount of weeping at the site. The edema to his lower extremities is at his normal amount per patient. He has had no further documented fevers. He is currently on cefepime and vancomycin. Review of Systems All systems: negative Constitutional: Reports anorexia, Reports fatigue, Reports fever, Reports poor appetite, Reports weakness, Denies chills Eyes: denies blurred vision, denies pain Ears, nose, mouth and throat: Reports mouth pain, Denies headache, Denies sore throat Cardiovascular: Reports leg edema, Denies chest pain, Denies lightheadedness, Denies shortness of breath, Denies syncope Respiratory: Denies cough, Denies home oxygen Gastrointestinal: Reports diarrhea, Reports nausea, Denies abdominal pain, Denies vomiting Genitourinary: Denies dysuria Musculoskeletal: Denies myalgias Integumentary: Reports wounds, Denies pruritus, Denies rash Neurological: Reports weakness, Denies numbness Psychiatric: Denies anxiety, Denies depression Endocrine: Denies fatigue, Denies weight change Past Medical History Past Medical History: Atrial Fibrillation, Asthma, Coronary Artery Disease (CAD) , Cancer, Hyperlipidemia, Hypertension, Osteoarthritis (OA), Prostate Disorder Additional Past Medical History / Comment(s): August 2016 diagnosed with subcutaneous B cell lymphoma, BPH, back pain with walking, NIDDM type II, hand injury while in [place] requiring multiple graft etc surgeries, infusaport infection. History of Any Multi-Drug Resistant Organisms: MRSA Year Discovered:: 12/31/16 MDRO Source:: Left Leg Past Surgical History: Heart Catheterization, Joint Replacement, Orthopedic Surgery, Tonsillectomy Additional Past Surgical History / Comment(s): 8 SURGERIES ON right with skin grafts and tendon grafts from his ankle (POST INJURY IN [place]), INFUSAPORT, PTCA 2013 with 2 stents, colonoscopy/polypectomy, total L hip arthroplasty. Past Anesthesia/Blood Transfusion Reactions: No Reported Reaction Additional Past Anesthesia/Blood Transfusion Reaction / Comm: TROUBLE WAKING UP long ago after surgery in the [employer]. 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 He lives at home with his in a 2 story home that has 6 steps to get into home. bedroom on 1st floor. to get up staris - 13 steps. has no outside services. no medical equipment other than walker. spent a few weeks at [facility] for rehab just got home 01-20-17. He is to join [employer] in the home. No recent travel. He is currently retired from [employer]. He is a lifelong nonsmoker. He denies any medical marijuana, marijuana, street drug use. He drinks alcohol on a very rare basis. Smoking Status: Never smoker Past Alcohol Use History: Occasional Past Drug Use History: None Reported - Past Family History Mother Family Medical History: COPD, Diabetes Mellitus Additional Family Medical History / Comment(s): Mother of a [place] at the age of 61 yrs. She was a heavy smoker. Father History Unknown: Yes Family Medical History: COPD, Diabetes Mellitus, Myocardial Infarction ([place]) Medications and Allergies Home Medications Medication Instructions Recorded Confirmed Type Finasteride 5 mg PO HS 04/18/14 02/01/17 History Hydrochlorothiazide 25 mg PO QAM 04/18/14 02/01/17 History Lisinopril 20 mg PO QAM 04/18/14 02/01/17 History Simvastatin 20 mg PO HS 04/18/14 02/01/17 History Aspirin 81 mg PO 04/22/14 02/01/17 History Fluticasone Nasal [place] [Flonase 1 spray EA NOSTRIL DAILY 10/26/16 02/01/17 History Nasal [place]] metFORMIN HCL [metFORMIN HCL ER] 500 mg PO DAILY 10/26/16 02/01/17 History Albuterol Sulfate [Proair Hfa] 1 - 2 puff INHALATION RT-Q6H PRN 12/29/16 History Edoxaban Tosylate [Savaysa] 60 mg PO DAILY 12/29/16 02/01/17 History Omeprazole 20 mg PO DAILY 12/29/16 02/01/17 History Ondansetron [Zofran] 4 mg PO Q6H PRN 12/29/16 02/01/17 History Oxybutynin Chloride [Ditropan XL] 10 mg PO DAILY 12/29/16 02/01/17 History Metoprolol Tartrate [Lopressor] 25 mg PO TID 01/25/17 02/01/17 History Allergies Allergy/AdvReac Type Severity Reaction Status Date / Time Penicillins Allergy Unknown Verified 02/01/17 18:50 Childhood Physical Exam Vitals: Vital Signs Temp Pulse Pulse Resp BP BP Pulse Ox 02/02/17 04:00 98.5 F 96 17 158/80 93 L 02/02/17 00:00 97.7 F 101 H 16 144/77 98 02/01/17 20:47 99.0 F 110 H 20 138/66 98 02/01/17 20:00 97.6 F 102 H 17 140/75 98 Intake and Output 02/01/17 02/02/17 02/02/17 22:59 06:59 14:59 Intake Total 1300 900 Output Total 200 Balance 1300 700 Intake: IV 1300 500 Cefepime 2 gm In Sodium 100 Chloride 0.9% 50 ml @ 100 mls/hr IVPB Q8HR [facility] Rx# :[id number] Sodium Chloride 0.9% 1, 200 000 ml @ 100 mls/hr IV . Q10H [facility] Rx#:[id number] Sodium Chloride 0.9% 500 500 ml @ 999 mls/hr IV .Q31M [facility] Rx#:[id number] Sodium Chloride 0.9% 500 500 ml @ 999 mls/hr IV .Q31M [facility] Rx#:[id number] Vancomycin 2,500 mg In 500 Sodium Chloride 0.9% 500 ml @ 167 mls/hr IVPB ONCE [facility] Rx#:[id number] Intake, IV Titration 400 Amount Magnesium Sulfate-D5w Pmx 200 1 gm In Dextrose/Water 1 100ml.bag @ 100 mls/hr IVPB Q1H [facility] Rx#: [id number] Potassium Chloride 10 meq 200 In Water For Injection 1 100ml.bag @ 100 mls/hr IVPB Q1H [facility] Rx#: [id number] Output: Urine 200 Other: Voiding Method Bedside Commode Bedside Commode # Voids 1 Gen: This is a 66-year-old morbidly obese male. He is sitting on a commode chair and appears to be in no acute distress. HEENT: Head is atraumatic, normocephalic. Large fatty tumor noted on the right occipital area, nontender. Pupils equal, round. Sclerae is anicteric. Conjunctiva pale. Mucous membranes of the mouth are moist. Lesion noted on the left side of his tongue. No thrush. NECK: Supple. No JVD. No lymphadenopathy. No thyromegaly. LUNGS: Clear to auscultation. No wheezes or rhonchi. No intercostal retractions. HEART: Regular rate and rhythm. No murmur. Tachycardic. ABDOMEN: Morbidly obese. Soft. Bowel sounds are present. No masses. No tenderness. EXTREMITIES: 3+ chronic edema to the lower extremities bilaterally with nodular lesions noted most severe to the right lower extremity and erythema. NEUROLOGICAL: Patient is awake, alert and oriented x3. Cranial nerves 2 through 12 are grossly intact. Results Results: Laboratory Results WBC 0.2 k/uL (3.8-10.6) L* 02/02/17 06:00 RBC 2.84 m/uL (4.30-5.90) L 02/02/17 06:00 Hgb 8.9 gm/dL (13.0-17.5) L 02/02/17 06:00 Hct 27.4 % (39.0-53.0) L 02/02/17 06:00 MCV 96.5 fL (80.0-100.0) 02/02/17 06:00 MCH 31.2 pg (25.0-35.0) 02/02/17 06:00 MCHC 32.3 g/dL (31.0-37.0) 02/02/17 06:00 RDW 14.7 % (11.5-15.5) 02/02/17 06:00 Plt Count 49 k/uL (150-450) L* 02/02/17 06:00 Differential Comment 02/02/17 06:00 Manual Slide Review Performed 02/01/17 17:35 RBC Morphology Normal 02/01/17 17:35 Poikilocytosis (manual Present 02/02/17 06:00 Anisocytosis (manual) Present 02/02/17 06:00 Tear Drop Cells Present 02/02/17 06:00 PT 14.3 sec (9.0-12.0) H 02/01/17 18:04 INR 1.5 (<1.1) 02/01/17 18:04 APTT 28.3 sec (22.0-30.0) 02/01/17 18:04 Sodium 135 mmol/L (137-145) L 02/02/17 06:00 Potassium 2.9 mmol/L (3.5-5.1) L* 02/02/17 06:00 Chloride 97 mmol/L (98-107) L 02/02/17 06:00 Carbon Dioxide 30 mmol/L (22-30) 02/02/17 06:00 Anion Gap 8 mmol/L 02/02/17 06:00 BUN 23 mg/dL (9-20) H 02/02/17 06:00 Creatinine 0.80 mg/dL (0.66-1.25) 02/02/17 06:00 Est GFR (MDRD) Af Amer >60 (>60 ml/min/1.73 sqM) 02/02/17 06:00 Est GFR (MDRD) Non-Af >60 (>60 ml/min/1.73 sqM) 02/02/17 06:00 Glucose 170 mg/dL (74-99) H 02/02/17 06:00 POC Glucose (mg/dL) 168 mg/dL (75-99) H 02/02/17 06:39 POC Glu Measurement And Verification Engineer ID Kiko Tenorio 02/02/17 06:[address] Glu mg/dL 143 mg/dL 02/02/17 06:00 Hemoglobin A1c 6.6 % (4.2-6.1) H 02/02/17 06:00 Plasma Lactic Acid Walter 1.1 mmol/L (0.7-2.0) 02/01/17 21:06 Calcium 7.8 mg/dL (8.4-10.2) L 02/02/17 06:00 Magnesium 2.0 mg/dL (1.6-2.3) 02/02/17 06:00 Total Bilirubin 1.5 mg/dL (0.2-1.3) H 02/01/17 17:35 AST 27 U/L (17-59) 02/01/17 17:35 ALT 31 U/L (21-72) 02/01/17 17:35 Alkaline Phosphatase 56 U/L (38-126) 02/01/17 17:35 Total Creatine Kinase 60 U/L (55-170) 02/01/17 17:35 CK-MB (CK-2) 0.6 ng/mL (0.0-2.4) 02/01/17 17:35 CK-MB (CK-2) Rel Index 1.0 02/01/17 17:35 Troponin I 0.093 ng/mL (0.000-0.034) H* 02/01/17 17:35 Total Protein 6.2 g/dL (6.3-8.2) L 02/01/17 17:35 Albumin 3.4 g/dL (3.5-5.0) L 02/01/17 17:35 Urine Color Yellow 02/01/17 17:35 Urine Appearance Cloudy (Clear) 02/01/17 17:35 Urine pH 5.5 (5.0-8.0) 02/01/17 17:35 Ur Specific [place] 1.011 (1.001-1.035) 02/01/17 17:35 Urine Protein 1+ (Negative) H 02/01/17 17:35 Urine Glucose (UA) Trace (Negative) H 02/01/17 17:35 Urine Ketones Negative (Negative) 02/01/17 17:35 Urine Blood Trace (Negative) H 02/01/17 17:35 Urine Nitrate Negative (Negative) 02/01/17 17:35 Urine Bilirubin Negative (Negative) 02/01/17 17:35 Urine Urobilinogen <2.0 mg/dL (<2.0) 02/01/17 17:35 Ur Leukocyte Esterase Negative (Negative) 02/01/17 17:35 Urine RBC 2 /hpf (0-5) 03 17:35 Urine WBC 3 /hpf (0-5) 02/01/17 17:35 Ur Squamous Epith Cells <1 /hpf (0-4) 02/01/17 17:35 Urine Bacteria Moderate /hpf (None) H 02/01/17 17:35 Granular Casts 4 /lpf (0) 02/01/17 17:35 Urine Mucus Rare /hpf (None) H 02/01/17 17:35 Influenza Type A RNA Not Detected (Not Detectd) 02/01/17 17:35 Influenza Type B (PCR) Not Detected (Not Detectd) 02/01/17 17:35 CBC & Chem 7: 02/02/17 06:00 02/02/17 06:00 Labs: Abnormal Lab Results - Last 24 Hours (Table) 02/01/17 02/02/17 02/02/17 Range/Units 21:31 06:00 06:00 WBC (3.8-10.6) k/uL RBC (4.30-5.90) m/uL Hgb (13.0-17.5) gm/dL Hct (39.0-53.0) % Plt Count (150-450) k/uL Sodium 135 L (137-145) mmol/L Potassium 2.9 L* (3.5-5.1) mmol/L Chloride 97 L (98-107) mmol/L BUN 23 H (9-20) mg/dL Glucose 170 H (74-99) mg/dL POC Glucose (mg/dL) 250 H (75-99) mg/dL Hemoglobin A1c 6.6 H (4.2-6.1) % Calcium 7.8 L (8.4-10.2) mg/dL 02/02/17 02/02/17 Range/Units 06:00 06:39 WBC 0.2 L* (3.8-10.6) k/uL RBC 2.84 L (4.30-5.90) m/uL Hgb 8.9 L (13.0-17.5) gm/dL Hct 27.4 L (39.0-53.0) % Plt Count 49 L* (150-450) k/uL Sodium (137-145) mmol/L Potassium (3.5-5.1) mmol/L Chloride (98-107) mmol/L BUN (9-20) mg/dL Glucose (74-99) mg/dL POC Glucose (mg/dL) 168 H (75-99) mg/dL Hemoglobin A1c (4.2-6.1) % Calcium (8.4-10.2) mg/dL Assessment and Plan Plan: This is a 66-year-old male who presented to the hospital with neutropenic sepsis and recently had chemotherapy completed on January 25. Patient has been started on cefepime and vancomycin which will be continued. Local wound care will be addressed. Blood culture is received. Continue supportive care. Further recommendations as patient progresses. The above dictated assessment and findings were discussed with Dr. Vazquez. The impression and plan of care have been directed as dictated. Brisa Luz nurse practitioner acting as scribe for Dr. Vazquez. Time with Patient: Greater than 30
[2017-02-02] MEDS: EDOXABAN TOSYLATE 60 MG TABLET PO SCH (09:18)
[2017-02-02] MEDS ORDERED: SODIUM CHLORIDE 0.9% 1,000 ML IV SCH (09:30)
[2017-02-02] MEDS ORDERED: SODIUM CHLORIDE 0.9% 500 ML IV ONE (09:57)
[2017-02-02 11:44] LABS: Glucose,Whole Blood 153 mg/dL (75-99)
--- NOTE | 2017-02-02 11:52 | US ---
EXAMINATION TYPE: US extremity nonvasc mass RT DATE OF EXAM: 02/02/2017 11:35 AM COMPARISON: NONE CLINICAL HISTORY: mass, possible abscess, cellulitis, red swollen lump at right lateral calf with sma ll wounds scattered throughout. TECHNOLOGIST IMPRESSION: Irregular shaped hypoechoic mass measuring 20.5 x 1.8 x 9.2cm, severe phi atous tissue as well. Images saved show severe diffuse subcutaneous edema, technologist suspects deeper mass but I feel thi s is likely reflective of more focal ill-defined fluid or edema. No well-formed thick-walled fluid co llection or drainable abscess is present. IMPRESSION: As above.
[2017-02-02] MEDS: VANCOMYCIN 2,500 MG in SODIUM CHLORIDE 0.9% 500 ML IVPB SCH (13:08)
--- NOTE | 2017-02-02 14:02 | P.CONS ---
History of Present Illness - Reason for Consult Consult date: 02/02/17 febrile neutropenia Requesting physician: Juan Carlos Thorne - Chief Complaint weakness, fall - History of Present Illness Mr. Welsh is a pleasant male pt of Dr. Haddad who just completed 6 cycles of R-CHOP last week with neulasta support. Pt initially presented to his PCP in May of 2016 because of a nodular mass just below the left knee that was increasing in size over the last 4-5 months. He was referred to Dr. Alejandro and had an excisional biopsy on 07/07/16, revealing diffuse large B- Cell lymphoma, immunopheno type was felt to be consistent with a cutaneous DLBCL of the leg. Staging PET was delayed due to his size and claustrophobia, ultimately it was done showing uptake at the original site and in the rt anterior leg and medial calf. He started R-CHOP on 09/15/16 and is s/p 6 cycles. Cycle 3 was delayed 2 wks due to possible PORT site infection. He had another course of abx after cycle 4 due to inflammation around the PORT site. He was admitted to [facility] after cycle 5 due to ulceration and cellulitis of BLE, infected with MRSA. He was discharged to [facility] on IV antibiotics and he completed on or about 01/19/17. He had his last cycle of treatment last week. Since then he felt he was doing ok but he progressively felt weaker and fell at home, he also injured the lateral side of his right leg on a w/c last week. He had fever on admit, none since, denies chills, rigors, headache, dizziness, syncopy , oral irritation, sore throat, cough, SOB, chest pain, palpitations, abd pain or bloating, changes in bowel or bladder habits, his RLE is red and warm but he denies pain, numbness or tingling ion the legs or feet. He feels ok now, better then when he came in. Review of Systems All systems: negative Constitutional: Reports as per HPI Past Medical History Past Medical History: Atrial Fibrillation, Asthma, Coronary Artery Disease (CAD) , Cancer, Hyperlipidemia, Hypertension, Osteoarthritis (OA), Prostate Disorder Additional Past Medical History / Comment(s): August 2016 diagnosed with subcutaneous B cell lymphoma, BPH, back pain with walking, NIDDM type II, hand injury while in [place] requiring multiple graft etc surgeries, infusaport infection. History of Any Multi-Drug Resistant Organisms: MRSA Year Discovered:: 12/31/16 MDRO Source:: Left Leg Past Surgical History: Heart Catheterization, Joint Replacement, Orthopedic Surgery, Tonsillectomy Additional Past Surgical History / Comment(s): 8 SURGERIES ON right with skin grafts and tendon grafts from his ankle (POST INJURY IN [place]), INFUSAPORT, PTCA 2013 with 2 stents, colonoscopy/polypectomy, total L hip arthroplasty. Past Anesthesia/Blood Transfusion Reactions: No Reported Reaction Additional Past Anesthesia/Blood Transfusion Reaction / Comm: TROUBLE WAKING UP long ago after surgery in the [employer]. 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 He lives at home with his in a 2 story home that has 6 steps to get into home. bedroom on 1st floor. to get up staris - 13 steps. has no outside services. no medical equipment other than walker. spent a few weeks at [facility] for rehab just got home 01-20-17. He is to join [employer] in the home. No recent travel. He is currently retired from [employer]. He is a lifelong nonsmoker. He denies any medical marijuana, marijuana, street drug use. He drinks alcohol on a very rare basis. Smoking Status: Never smoker Past Alcohol Use History: Occasional Past Drug Use History: None Reported - Past Family History Mother Family Medical History: COPD, Diabetes Mellitus Additional Family Medical History / Comment(s): Mother of a [place] at the age of 61 yrs. She was a heavy smoker. Father History Unknown: Yes Family Medical History: COPD, Diabetes Mellitus, Myocardial Infarction ([place]) Medications and Allergies Home Medications Medication Instructions Recorded Confirmed Type Finasteride 5 mg PO 04/18/14 02/01/17 History Hydrochlorothiazide 25 mg PO QAM 04/18/14 02/01/17 History Lisinopril 20 mg PO QAM 04/18/14 02/01/17 History Simvastatin 20 mg PO HS 04/18/14 02/01/17 History Aspirin 81 mg PO 04/22/14 02/01/17 History Fluticasone Nasal [place] [Flonase 1 spray EA NOSTRIL DAILY 10/26/16 02/01/17 History Nasal [place]] metFORMIN HCL [metFORMIN HCL ER] 500 mg PO DAILY 10/26/16 02/01/17 History Albuterol Sulfate [Proair Hfa] 1 - 2 puff INHALATION RT-Q6H PRN 12/29/16 History Edoxaban Tosylate [Savaysa] 60 mg PO DAILY 12/29/16 02/01/17 History Omeprazole 20 mg PO DAILY 12/29/16 02/01/17 History Ondansetron [Zofran] 4 mg PO Q6H PRN 12/29/16 02/01/17 History Oxybutynin Chloride [Ditropan XL] 10 mg PO DAILY 12/29/16 02/01/17 History Metoprolol Tartrate [Lopressor] 25 mg PO TID 01/25/17 02/01/17 History Allergies Allergy/AdvReac Type Severity Reaction Status Date / Time Penicillins Allergy Unknown Verified 02/01/17 18:50 Childhood Physical Exam Vitals: Vital Signs Temp Pulse Pulse Pulse Resp BP BP 02/02/17 12:00 97.9 F 98 18 155/84 02/02/17 08:00 97.8 F 133 H 116 H 18 115/68 02/02/17 04:00 98.5 F 96 17 158/80 02/02/17 00:00 97.7 F 101 H 16 144/77 02/01/17 20:47 99.0 F 110 H 20 138/66 02/01/17 20:00 97.6 F 102 H 17 140/75 Pulse Ox 02/02/17 12:00 100 02/02/17 08:00 99 02/02/17 04:00 93 L 02/02/17 00:00 98 02/01/17 20:47 98 02/01/17 20:00 98 Intake and Output 02/01/17 02/02/17 02/02/17 22:59 06:59 14:59 Intake Total 1300 900 0 Output Total 200 800 Balance 1300 700 -800 Intake: IV 1300 500 Cefepime 2 gm In Sodium 100 Chloride 0.9% 50 ml @ 100 mls/hr IVPB Q8HR [facility] Rx# :[id number] Sodium Chloride 0.9% 1, 200 000 ml @ 100 mls/hr IV . Q10H [facility] Rx#:[id number] Sodium Chloride 0.9% 500 500 ml @ 999 mls/hr IV .Q31M [facility] Rx#:[id number] Sodium Chloride 0.9% 500 500 ml @ 999 mls/hr IV .Q31M [facility] Rx#:[id number] Vancomycin 2,500 mg In 500 Sodium Chloride 0.9% 500 ml @ 167 mls/hr IVPB ONCE [facility] Rx#:[id number] Intake, IV Titration 400 Amount Magnesium Sulfate-D5w Pmx 200 1 gm In Dextrose/Water 1 100ml.bag @ 100 mls/hr IVPB Q1H [facility] Rx#: [id number] Potassium Chloride 10 meq 200 In Water For Injection 1 100ml.bag @ 100 mls/hr IVPB Q1H [facility] Rx#: [id number] Oral 0 Output: Urine 200 800 Other: Voiding Method Bedside Commode Bedside Commode Bedside Commode # Voids 1 # Bowel Movements 1 Weight 181.437 kg Patient Weight 02/03/17 06:59 Weight 181.437 kg - Constitutional General appearance: cooperative, morbidly obese, no acute distress - EENT Eyes: anicteric sclerae, PERRLA, normal appearance ENT: hearing grossly normal, normal oropharynx - Neck Neck: no lymphadenopathy - Respiratory Respiratory: bilateral: CTA - Cardiovascular Heart sounds: normal: S1, S2 leg Peripheral Edema: bilateral: 4+ - Gastrointestinal General gastrointestinal: normal bowel sounds, soft - Integumentary BLE skin is dry, flaking, few scabs, RLE red and warm to touch, Bilateral bronzing from venous insufficiency - Neurologic Neurologic: CNII-XII intact - Musculoskeletal lower extremity weakness - Psychiatric Psychiatric: A&O x's 3, appropriate affect, intact judgment & insight Results CBC & Chem 7: 02/02/17 06:00 02/02/17 06:00 Labs: Abnormal Lab Results - Last 24 Hours (Table) 02/01/17 02/02/17 02/02/17 Range/Units 21:31 06:00 06:00 WBC (3.8-10.6) k/uL RBC (4.30-5.90) m/uL Hgb (13.0-17.5) gm/dL Hct (39.0-53.0) % Plt Count (150-450) k/uL Sodium 135 L (137-145) mmol/L Potassium 2.9 L* (3.5-5.1) mmol/L Chloride 97 L (98-107) mmol/L BUN 23 H (9-20) mg/dL Glucose 170 H (74-99) mg/dL POC Glucose (mg/dL) 250 H (75-99) mg/dL Hemoglobin A1c 6.6 H (4.2-6.1) % Calcium 7.8 L (8.4-10.2) mg/dL 02/02/17 02/02/17 02/02/17 Range/Units 06:00 06:39 11:42 WBC 0.2 L* (3.8-10.6) k/uL RBC 2.84 L (4.30-5.90) m/uL Hgb 8.9 L (13.0-17.5) gm/dL Hct 27.4 L (39.0-53.0) % Plt Count 49 L* (150-450) k/uL Sodium (137-145) mmol/L Potassium (3.5-5.1) mmol/L Chloride (98-107) mmol/L BUN (9-20) mg/dL Glucose (74-99) mg/dL POC Glucose (mg/dL) 168 H 153 H (75-99) mg/dL Hemoglobin A1c (4.2-6.1) % Calcium (8.4-10.2) mg/dL Assessment and Plan (1) Febrile illness, acute Narrative/Plan: Pt is no empiric abx. US ordered of RLE concern for abscess. ID consulted. Status: Acute (2) Leukopenia Narrative/Plan: Pt had GCS-F 7 days ago, cont to monitor WBC count for now, no additional growth factors Status: Acute (3) Pancytopenia due to antineoplastic chemotherapy Narrative/Plan: No acute interventions for anemia, leukopenia or thrombocytopena. No ASA, NSAIDs or anticoagulation until plt>50K. Status: Acute (4) Cutaneous B-cell lymphoma Narrative/Plan: Pt has completed treatment with significant improvement clinically. He will follow up with Dr. Haddad as scheduled. Status: Chronic
[2017-02-02] MEDS: POTASSIUM CHLORIDE ER 20 MEQ TAB.ER PO SCH ×3 (15:49→23:41)
[2017-02-02 17:03] LABS: Glucose,Whole Blood 158 mg/dL (75-99)
[2017-02-02] MEDS: SODIUM CHLORIDE 0.9% 1,000 ML IV SCH (18:01)
[2017-02-02] MEDS: INSULIN LISPRO (humaLOG) 300 UNIT/3 ML VIAL SQ SCH ×2 (18:24→21:37)
[2017-02-02] MEDS: ASPIRIN 81 MG CHEW PO SCH (20:26)
[2017-02-02] MEDS: ATORVASTATIN 10 MG TAB PO SCH (20:26)
[2017-02-02] MEDS: FINASTERIDE 5 MG TAB PO SCH (20:26)
--- NOTE | 2017-02-02 20:56 | P.CON ---
Consult Note - . 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 He received PCHOP with Neulasta starting in August and completed on 12/22/2016. He was then hospitalized December 29 through January 05 at which time he was treated for MRSA infection and cellulitis to the right lower extremity and seen by Dr. Spears. He was on IV vancomycin which was discontinued at the time of his transfer due to trough of 34. He went to [facility] for rehabilitation and patient states he did very well there and gained strength and was discharged home. He was subsequently started on chemotherapy which he does not know the name. He states he has had some nausea and not able to drink fluids. He had a fall because his lower extremities gave out on him and he slowly let himself down to the floor. He did have abrasion to the left shoulder but no other injuries were noted. He came into [facility] emergency center for evaluation. Chest x-ray showed no acute findings. He was febrile with a temperature 103.3. Patient does not recall having a fever at home but his thought he probably did. White count 0.1 with repeated 0.2. Patient noted to have pancytopenia and hypokalemia. Influenza testing was negative for A and B. Urinalysis was cloudy, protein 1+, glucose trace, blood trace, bacteria moderate. Patient states he was able to eat his entire breakfast this morning and nausea is improved. He is taking in water. He states he scraped the lateral side of his right lower extremity while getting chemotherapy and there is a small amount of weeping at the site. The edema to his lower extremities is at his normal amount per patient. He has had no further documented fevers. He is currently on cefepime and vancomycin. Please see the consult is dictated by nurse practitioner Mrs. Brisa Luz. Patient does evidence of the ulceration to the lateral aspect of the right leg. Reflexes from small injury. Will be treated with some Opticell silver. In wraps in place. Antibiotic therapy as above given his fever and neutropenia. Hematology oncology follow-up is in process. Patient instructed to elevate the limb at rest. Cultures are process will further help direct antibiotic therapy. I agree with evaluation, assessment and plan as dictated by nurse practitioner Mrs. Brisa Luz.
[2017-02-02 21:09] LABS: Glucose,Whole Blood 186 mg/dL (75-99)
--- NOTE | 2017-02-02 22:38 | HP ---
DATE OF ADMISSION: 02/01/2017 Patient is a 66 -year-old who came in because the patient has fallen at home and the patient was also complaining of some sore throat and cough. The patient was found to be severely neutropenic and the patient had a high grade fever. Urine is definitely looking abnormal as well as the patient had right lower limb cellulitis. The patient has chronic venous stasis and edema bilateral lower limbs with significantly red looking right lower extremity with lymphedema. Patient has history of lymphoma, was recently treated with chemotherapy, ( ) leukopenia and the patient was evaluated by infectious disease already and the patient was started on ( ) and Vancomycin. The patient has chronic venous stasis dermatosis along with significant increased redness, localized of temperature in the right lower limb. Home medications include: 1. Finasteride. 2. Hydrochlorothiazide. 3. Lisinopril. 4. Simvastatin. 5. Aspirin. 6. Fluticasone. 7. Metformin. 8. Albuterol. 9. ( ). 10. Omeprazole. 11. ( ). 12. ( ). 13. Nitroglycerin. ALLERGIES: ALLERGIC TO PENICILLIN. REVIEW OF SYSTEMS: CONSTITUTIONAL: As described in history of present illness. HEENT: No recent visual problems or hearing problems. Denied any sore throat. CARDIOVASCULAR: No chest pain, orthopnea, PND, no palpitations, no syncope. PULMONARY: No shortness of breath, no cough, no hemoptysis. GASTROINTESTINAL: No diarrhea, no nausea, no vomiting, no abdominal pain. Normoactive bowel sounds. NEUROLOGICAL: No headaches, no weakness, no numbness. HEMATOLOGICAL: Denies any bleeding or petechiae. GENITOURINARY: Denies any burning micturition, frequency, or urgency. MUSCULOSKELETAL/RHEUMATOLOGICAL: as described in history of present illness. ENDOCRINE: Denies any polyuria or polydipsia. DERMATOLOGICAL: As described in history of present illness. The rest of the 14 point review of systems is negative. PAST MEDICAL HISTORY: Significant for atrial fibrillation, asthma, COPD, lymphoma, ( ) chemotherapy, ( ), osteoarthritis, benign prostatic hypertrophy, MRSA, history of MRSA in the past. The patient had a colonoscopy and polypectomy in the past, ( ) in the past. SOCIAL HISTORY: denied any smoking, alcohol abuse or any drug abuse. FAMILY HISTORY: Mother had COPD, and diabetes mellitus ; and father's history is unknown. PHYSICAL EXAMINATION: VITAL SIGNS: Temperature 103.3, pulse of 102, respiratory rate 20, blood pressure is ( ), saturating at 94% on room. GENERAL: The patient is a morbidly obese gentleman. HEENT: Pupils are round and equally reacting to light. EOMI. No scleral icterus. No conjunctival pallor. Normocephalic, atraumatic. No pharyngeal erythema. No thyromegaly. CARDIOVASCULAR: S1 and S2 present. No murmurs, rubs, or gallops. PULMONARY: Chest is clear to auscultation, no wheezing or crackles. ABDOMEN: Soft, nontender, nondistended, normoactive bowel sounds. No palpable organomegaly. MUSCULOSKELETAL: No joint swelling or deformity. EXTREMITIES: The patient has bilateral lower limb edema, mostly in the right leg with decreased redness, localized ( ). NEUROLOGICAL: Gross neurological examination did not reveal any focal deficits. SKIN: No rashes. LABORATORY DATA: CBC, CMP are significant for severe neutropenia with 100 WBC count, differential was not performed, 100 WBC count, potassium of 3.1, which will be supplemented, anion gap of 13. I do not have any ( ) available ( ) 1.02. Troponin 0.093 secondary to sepsis without any chest pain or significant EKG changes. Actually I do have lactic acid available which is 2.5. Patient has urine WBC of 3. ASSESSMENT AND PLAN: 1. Significant sepsis and febrile neutropenia, possible source being right lower limb and the patient ( ) infectious disease evaluated the patient. The patient is also on pseudomonal coverage with Cefepime. Further management of antibiotics as per infectious disease. Continue with IV fluids, IV fluids at present rate of 100 mL per hour. 2. Atrial fibrillation, rate controlled. The patient is on ( ). 3. Diabetes mellitus , the patient cannot take Metformin because of his lactic acidosis and Metformin will be discontinued and the patient will be started on sliding scale insulin. 4. Osteoarthritis. 5. Benign prostatic hypertrophy. 6. History of coronary artery disease ( ). 7. Lymphoma for which the patient received chemotherapy, ( ) pancytopenia secondary to chemotherapy for lymphoma. 8. Benign prostatic hypertrophy. For the above mentioned chronic medical problems, ( ) continue the home medications except for those exceptions of discontinuation of metformin. Blood cultures were obtained. Chest x-ray did not show any pneumonic process. Most probable source of infection is being right lower limb cellulitis.
[2017-02-03] MEDS: POTASSIUM CHLORIDE ER 20 MEQ TAB.ER PO SCH ×4 (01:44→14:39)
[2017-02-03] MEDS: SODIUM CHLORIDE 0.9% 1,000 ML IV SCH (02:45)
[2017-02-03] MEDS: VANCOMYCIN 2,500 MG in SODIUM CHLORIDE 0.9% 500 ML IVPB SCH ×2 (05:00→19:59)
[2017-02-03 06:35] LABS: Glucose,Whole Blood 146 mg/dL (75-99)
[2017-02-03] MEDS: INSULIN LISPRO (humaLOG) 300 UNIT/3 ML VIAL SQ SCH ×4 (06:44→21:10)
[2017-02-03 06:46] LABS: CH 31.1; CHCM 32.5; HCT 26.3 % (39.0-53.0); HGB 8.5 gm/dL (13.0-17.5); MCH 31.1 pg (25.0-35.0); MCHC 32.4 g/dL (31.0-37.0); MCV 95.8 fL (80.0-100.0); Mean Platelet Volume 9.7; RBC 2.74 m/uL (4.30-5.90); RDW 14.5 % (11.5-15.5)
[2017-02-03 07:03] LABS: WBC 0.4 k/uL (3.8-10.6)
[2017-02-03] MEDS: EDOXABAN TOSYLATE 60 MG TABLET PO SCH (08:47)
[2017-02-03] MEDS: LISINOPRIL 20 MG TAB PO SCH (08:49)
[2017-02-03] MEDS: OXYBUTYNIN 10 MG TAB.ER.24 PO SCH (08:49)
[2017-02-03] MEDS: PANTOPRAZOLE 40 MG TABLET PO SCH (08:49)
[2017-02-03] MEDS: FLUTICASONE 50MCG/SPRAY NASAL 16GM EA NOSTRIL SCH (08:49)
[2017-02-03] MEDS: METOPROLOL TARTRATE 25 MG TAB PO SCH ×3 (08:49→21:10)
[2017-02-03] MEDS: CEFEPIME 2 GM in SODIUM CHLORIDE 0.9% 50 ML IVPB SCH ×2 (08:49→14:39)
[2017-02-03 10:01] LABS: Anion Gap 10 mmol/L; Blood Urea Nitrogen 20 mg/dL (9-20); Calcium 7.7 mg/dL (8.4-10.2); Carbon Dioxide 27 mmol/L (22-30); Chloride 97 mmol/L (98-107); Glucose 169 mg/dL (74-99); Non-African American GFR(MDRD) >60 (>60 ml/min/1.73 sqM); Potassium 3.2 mmol/L (3.5-5.1); Sodium 134 mmol/L (137-145)
[2017-02-03 12:34] LABS: Glucose,Whole Blood 145 mg/dL (75-99)
--- NOTE | 2017-02-03 17:26 | PN ---
DATE OF SERVICE: 02/03/2017 This 66-year-old gentleman was admitted for febrile neutropenia, possibly neutropenic sepsis, also the patient is on IV antibiotics. The patient complaining of severe weakness and tiredness. The patient finished sixth cycle of chemotherapy for cutaneous B-cell lymphoma per Dr. Haddad. The patient is being closely monitored. The patient also had history of atrial fibrillation also. Patient complains of severe significant weakness and unable to transfer. Past medical history reviewed. REVIEW OF SYSTEMS: CARDIOVASCULAR: As mentioned earlier. RESPIRATORY: As mentioned earlier. GI: No nausea. : No dysuria. Nervous system: No numbness, weakness. Current medications are reviewed and include: Current medications: 1. Wallagrass 5 mg q.6h p.r.n. 2. Ventolin q6h p.r.n. 3. Aspirin 81 mg. 4. Lipitor 10 mg q.h.s. 5. Cefepime 2 grams IV q.8. 7. Proscar 5 mg p.o. q.h.s. 8. Flonase one spray daily. 9. Humalog scale. 10. Zestril 20 mg q.a.m. 11. Lopressor 25 mg t.i.d. 12. Magnesium oxide. 14. Zofran. 15. Ditropan XL. 16. Protonix. 17. K-Dur. 18. Restoril. 19. Vancomycin. ALLERGIES: Noted. PHYSICAL EXAMINATION: The patient is alert and oriented x3. Pulse 107, blood pressure 106/75, respirations 18, temperature 98 degrees, pulse ox 99% on room air. HEENT: Conjunctivae normal. NECK: No jugular venous distention. CARDIOVASCULAR: S1, S2 muffled. RESPIRATORY: Breath sounds diminished at the bases. A few scattered rhonchi and crackles. ABDOMEN: Soft, nontender, no mass palpable. LEGS: Bilateral leg swelling as well as significant skin lesions. CENTRAL NERVOUS SYSTEM: No focal deficits. LABS: WBC 0.4, hemoglobin 8.5, platelets ntd, potassium ntd, sodium ntd. ASSESSMENT: 1. Severe neutropenia and neutropenic sepsis, present on admission. 2. Severe pancytopenia with leukopenia, neutropenia and thrombocytopenia secondary to chemotherapy. 3. Status post chemotherapy for cutaneous B-cell lymphoma. 4. History of chronic persistent atrial fibrillation. 5. Diabetes mellitus type 2. 6. Morbid obesity. 7. Degenerative joint disease. 8. Benign prostatic hypertrophy. 9. History of coronary artery disease. 10. Bilateral leg lesions. 11. Diabetes mellitus type 2. 12. History of asthma. 13. History of coronary artery disease, cardiac arrest and stent. 14. Hypertension. 15. Hyperlipidemia. 16. History of degenerative joint disease. 17. History of prostate cancer. 18. History of skin disease. 19. History of head injury. 20. Previous history of 2.6 cm pulmonary nodule. 21. FULL CODE. RECOMMENDATIONS AND DISCUSSION: This 66-year-old gentleman who presented with multiple complex medical issues, we will monitor the patient closely, continue the current medications. Continue broad spectrum IV antibiotics. Continue PT, OT evaluation. Chest x-ray showed no active cardiopulmonary disease. Recommend outpatient follow-up. At this time I would also obtain PT, OT evaluation. The prognosis is extremely guarded because of multiple complex medical issues. The cultures are negative so far. Further recommendations to follow. MTDD
[2017-02-03 17:53] LABS: Glucose,Whole Blood 143 mg/dL (75-99)
--- NOTE | 2017-02-03 18:00 | P.PN ---
Subjective Principal diagnosis: Febrile illness, sepsis This is a 66-year-old male with a significant past history of cutaneous B-cell lymphoma with lesions on the left lower extremity and chronic edema and cellulitis to the bilateral lower extremities. He received PCHOP with Neulasta starting in August and completed on 12/22/2016. He was then hospitalized December 29 through January 05 at which time he was treated for MRSA infection and cellulitis to the right lower extremity and seen by Dr. Spears. He was on IV vancomycin which was discontinued at the time of his transfer due to trough of 34. He went to [facility] for rehabilitation and patient states he did very well there and gained strength and was discharged home. He was subsequently started on chemotherapy which he does not know the name. He states he has had some nausea and not able to drink fluids. He had a fall because his lower extremities gave out on him and he slowly let himself down to the floor. He did have abrasion to the left shoulder but no other injuries were noted. He came into [facility] emergency center for evaluation. Chest x-ray showed no acute findings. He was febrile with a temperature 103.3. Patient does not recall having a fever at home but his thought he probably did. White count 0.1 with repeated 0.2. Patient noted to have pancytopenia and hypokalemia. Influenza testing was negative for A and B. Urinalysis was cloudy, protein 1+, glucose trace, blood trace, bacteria moderate. Patient states he was able to eat his entire breakfast this morning and nausea is improved. He is taking in water. He states he scraped the lateral side of his right lower extremity while getting chemotherapy and there is a small amount of weeping at the site. The edema to his lower extremities is at his normal amount per patient. Fevers have now improved on current antibiotic therapy. Patient feeling slightly better. Objective - Vital Signs Vital signs: Vital Signs Temp 98.8 F 02/03/17 16:00 Pulse 94 02/03/17 16:00 Resp 20 02/03/17 16:00 BP 110/76 02/03/17 16:00 Pulse Ox 95 02/03/17 16:00 Intake & Output 02/02/17 02/03/17 02/03/17 18:59 06:59 18:59 Intake Total 1300 2410 920 Output Total 144 036 6282 Balance 350 1935 -380 Weight 181.437 kg 182 kg 182 kg Intake: IV 1300 1450 100 Cefepime 2 gm In Sodium 50 100 Chloride 0.9% 50 ml @ 100 mls/hr IVPB Q8HR [facility] Rx# :[id number] Sodium Chloride 0.9% 1, 800 1400 000 ml @ 100 mls/hr IV . Q10H ONE Rx#:[id number] Sodium Chloride 0.9% 500 500 ml @ 999 mls/hr IV .Q31M ONE Rx#:[id number] Intake, IV Titration 620 Amount Sodium Chloride 0.9% 1, 120 000 ml @ 100 mls/hr IV . Q10H [facility] Rx#:[id number] Vancomycin 2,500 mg In 500 Sodium Chloride 0.9% 500 ml @ 167 mls/hr IVPB Q16H [facility] Rx#:[id number] Oral 0 960 200 Output: Urine 006 [id number] Other: Voiding Method Bedside Commode Bedside Commode Bedside Commode # Voids 4 4 # Bowel Movements 1 - Exam Gen: This is a 66-year-old morbidly obese male. He is sitting on a commode chair and appears to be in no acute distress. HEENT: Head is atraumatic, normocephalic. Large fatty tumor noted on the right occipital area, nontender. Pupils equal, round. Sclerae is anicteric. Conjunctiva pale. Mucous membranes of the mouth are moist. Lesion noted on the left side of his tongue. No thrush. NECK: Supple. No JVD. No lymphadenopathy. No thyromegaly. LUNGS: Clear to auscultation. No wheezes or rhonchi. No intercostal retractions. HEART: Regular rate and rhythm. No murmur. Tachycardic. ABDOMEN: Morbidly obese. Soft. Bowel sounds are present. No masses. No tenderness. EXTREMITIES: 3+ chronic edema to the lower extremities bilaterally with nodular lesions noted most severe to the right lower extremity and erythema. NEUROLOGICAL: Patient is awake, alert and oriented x3. - Labs CBC & Chem 7: 02/03/17 05:53 02/03/17 09:16 Labs: Abnormal Lab Results - Last 24 Hours (Table) 02/02/17 02/02/17 02/03/17 Range/Units 20:58 21:07 05:53 WBC 0.4 L* (3.8-10.6) k/uL RBC 2.74 L (4.30-5.90) m/uL Hgb 8.5 L (13.0-17.5) gm/dL Hct 26.3 L (39.0-53.0) % Plt Count 35 L* (150-450) k/uL Sodium (137-145) mmol/L Potassium 3.2 L (3.5-5.1) mmol/L Chloride (98-107) mmol/L Glucose (74-99) mg/dL POC Glucose (mg/dL) 186 H (75-99) mg/dL Calcium (8.4-10.2) mg/dL 02/03/17 02/03/17 02/03/17 Range/Units 06:33 09:16 12:15 WBC (3.8-10.6) k/uL RBC (4.30-5.90) m/uL Hgb (13.0-17.5) gm/dL Hct (39.0-53.0) % Plt Count (150-450) k/uL Sodium 134 L (137-145) mmol/L Potassium 3.2 L (3.5-5.1) mmol/L Chloride 97 L (98-107) mmol/L Glucose 169 H (74-99) mg/dL POC Glucose (mg/dL) 146 H 145 H (75-99) mg/dL Calcium 7.7 L (8.4-10.2) mg/dL 02/03/17 Range/Units 17:47 WBC (3.8-10.6) k/uL RBC (4.30-5.90) m/uL Hgb (13.0-17.5) gm/dL Hct (39.0-53.0) % Plt Count (150-450) k/uL Sodium (137-145) mmol/L Potassium (3.5-5.1) mmol/L Chloride (98-107) mmol/L Glucose (74-99) mg/dL POC Glucose (mg/dL) 143 H (75-99) mg/dL Calcium (8.4-10.2) mg/dL Laboratory Results WBC 0.4 k/uL (3.8-10.6) L* 02/03/17 05:53 RBC 2.74 m/uL (4.30-5.90) L 02/03/17 05:53 Hgb 8.5 gm/dL (13.0-17.5) L 02/03/17 05:53 Hct 26.3 % (39.0-53.0) L 02/03/17 05:53 MCV 95.8 fL (80.0-100.0) 02/03/17 05:53 MCH 31.1 pg (25.0-35.0) 02/03/17 05:53 MCHC 32.4 g/dL (31.0-37.0) 02/03/17 05:53 RDW 14.5 % (11.5-15.5) 02/03/17 05:53 Plt Count 35 k/uL (150-450) L* 02/03/17 05:53 Differential Comment 02/02/17 06:00 Manual Slide Review Performed 02/01/17 17:35 RBC Morphology Normal 02/01/17 17:35 Poikilocytosis (manual Present 02/02/17 06:00 Anisocytosis (manual) Present 02/02/17 06:00 Tear Drop Cells Present 02/02/17 06:00 PT 14.3 sec (9.0-12.0) H 02/01/17 18:04 INR 1.5 (<1.1) 02/01/17 18:04 APTT 28.3 sec (22.0-30.0) 02/01/17 18:04 Sodium 134 mmol/L (137-145) L 02/03/17 09:16 Potassium 3.2 mmol/L (3.5-5.1) L 02/03/17 09:16 Chloride 97 mmol/L (98-107) L 02/03/17 09:16 Carbon Dioxide 27 mmol/L (22-30) 02/03/17 09:16 Anion Gap 10 mmol/L 02/03/17 09:16 BUN 20 mg/dL (9-20) 02/03/17 09:16 Creatinine 0.95 mg/dL (0.66-1.25) 02/03/17 09:16 Est GFR (MDRD) Af Amer >60 (>60 ml/min/1.73 sqM) 02/03/17 09:16 Est GFR (MDRD) Non-Af >60 (>60 ml/min/1.73 sqM) 02/03/17 09:16 Glucose 169 mg/dL (74-99) H 02/03/17 09:16 POC Glucose (mg/dL) 143 mg/dL (75-99) H 02/03/17 17:47 POC Glu Risk Analyst ID Sonny Lyons 02/03/17 17:[address] Glu mg/dL 143 mg/dL 02/02/17 06:00 Hemoglobin A1c 6.6 % (4.2-6.1) H 02/02/17 06:00 Plasma Lactic Acid Walter 1.1 mmol/L (0.7-2.0) 02/01/17 21:06 Calcium 7.7 mg/dL (8.4-10.2) L 02/03/17 09:16 Magnesium 2.0 mg/dL (1.6-2.3) 02/02/17 06:00 Total Bilirubin 1.5 mg/dL (0.2-1.3) H 02/01/17 17:35 AST 27 U/L (17-59) 02/01/17 17:35 ALT 31 U/L (21-72) 02/01/17 17:35 Alkaline Phosphatase 56 U/L (38-126) 02/01/17 17:35 Total Creatine Kinase 60 U/L (55-170) 02/01/17 17:35 CK-MB (CK-2) 0.6 ng/mL (0.0-2.4) 02/01/17 17:35 CK-MB (CK-2) Rel Index 1.0 02/01/17 17:35 Troponin I 0.093 ng/mL (0.000-0.034) H* 02/01/17 17:35 Total Protein 6.2 g/dL (6.3-8.2) L 02/01/17 17:35 Albumin 3.4 g/dL (3.5-5.0) L 02/01/17 17:35 Urine Color Yellow 02/01/17 17:35 Urine Appearance Cloudy (Clear) 02/01/17 17:35 Urine pH 5.5 (5.0-8.0) 02/01/17 17:35 Ur Specific [place] 1.011 (1.001-1.035) 02/01/17 17:35 Urine Protein 1+ (Negative) H 02/01/17 17:35 Urine Glucose (UA) Trace (Negative) H 02/01/17 17:35 Urine Ketones Negative (Negative) 02/01/17 17:35 Urine Blood Trace (Negative) H 02/01/17 17:35 Urine Nitrate Negative (Negative) 02/01/17 17:35 Urine Bilirubin Negative (Negative) 02/01/17 17:35 Urine Urobilinogen <2.0 mg/dL (<2.0) 03 17:35 Ur Leukocyte Esterase Negative (Negative) 02/01/17 17:35 Urine RBC 2 /hpf (0-5) 02/01/17 17:35 Urine WBC 3 /hpf (0-5) 02/01/17 17:35 Ur Squamous Epith Cells <1 /hpf (0-4) 02/01/17 17:35 Urine Bacteria Moderate /hpf (None) H 02/01/17 17:35 Granular Casts 4 /lpf (0) 02/01/17 17:35 Urine Mucus Rare /hpf (None) H 02/01/17 17:35 Influenza Type A RNA Not Detected (Not Detectd) 03 17:35 Influenza Type B (PCR) Not Detected (Not Detectd) 02/01/17 17:35 Microbiology 02/01/17 17:35 Blood Blood Culture - Preliminary No Growth after 24 hours Assessment and Plan (1) Febrile illness, acute Narrative/Plan: 66-year-old male who has a history of cutaneous B-cell lymphoma who developed increasing difficulty with his left leg. Recently completed his course of chemotherapy. He received some Neulasta. Presents with difficulty with fever and neutropenia. Improving with current antibiotic therapy. Does have some ulcerations the right lateral aspect of his leg. Local wound care as requested. Elevate the limb as he can. Cultures are negative so far. Neutropenia persists and is being followed by hematology oncology. Status: Acute (2) Leukopenia Status: Acute
[2017-02-03] MEDS ORDERED: VANCOMYCIN TROUGH DUE 1 EACH MISC MISCELLANE ONE (19:00)
[2017-02-03 20:53] LABS: Glucose,Whole Blood 144 mg/dL (75-99)
[2017-02-03] MEDS: FINASTERIDE 5 MG TAB PO SCH (21:10)
[2017-02-03] MEDS: ATORVASTATIN 10 MG TAB PO SCH (21:10)
[2017-02-04] MEDS: CEFEPIME 2 GM in SODIUM CHLORIDE 0.9% 50 ML IVPB SCH ×4 (00:03→23:07)
[2017-02-04 06:51] LABS: Glucose,Whole Blood 129 mg/dL (75-99)
[2017-02-04] MEDS: INSULIN LISPRO (humaLOG) 300 UNIT/3 ML VIAL SQ SCH ×4 (06:53→21:22)
[2017-02-04] MEDS: LISINOPRIL 20 MG TAB PO SCH (08:28)
[2017-02-04] MEDS: FLUTICASONE 50MCG/SPRAY NASAL 16GM EA NOSTRIL SCH (08:28)
[2017-02-04] MEDS: METOPROLOL TARTRATE 25 MG TAB PO SCH ×3 (08:28→21:21)
[2017-02-04] MEDS: PANTOPRAZOLE 40 MG TABLET PO SCH (08:28)
[2017-02-04] MEDS: OXYBUTYNIN 10 MG TAB.ER.24 PO SCH (08:29)
[2017-02-04 09:34] LABS: Anion Gap 7 mmol/L; Blood Urea Nitrogen 19 mg/dL (9-20); Calcium 7.9 mg/dL (8.4-10.2); Carbon Dioxide 30 mmol/L (22-30); Chloride 98 mmol/L (98-107); Glucose 150 mg/dL (74-99); Non-African American GFR(MDRD) >60 (>60 ml/min/1.73 sqM); Potassium 3.3 mmol/L (3.5-5.1); Sodium 135 mmol/L (137-145)
[2017-02-04] MEDS: POTASSIUM CHLORIDE 10 MEQ, LIDOCAINE 2% INJ 10 MG in SODIUM CHLORIDE 0.9% 100 ML IVPB SCH ×3 (10:33→11:48)
[2017-02-04 11:04] LABS: CH 31.5; CHCM 32.7; HCT 28.8 % (39.0-53.0); HDW 2.99; HGB 9.2 gm/dL (13.0-17.5); Immature Gran Flag Slight; MCH 30.7 pg (25.0-35.0); MCHC 31.8 g/dL (31.0-37.0); MCV 96.6 fL (80.0-100.0); Mean Platelet Volume 9.7; RBC 2.98 m/uL (4.30-5.90); RDW 14.7 % (11.5-15.5); WBC (Perox) 1.18
[2017-02-04 11:05] LABS: WBC 1.1 k/uL (3.8-10.6)
[2017-02-04] MEDS: POTASSIUM CHLORIDE ER 20 MEQ TAB.ER PO SCH (11:15)
[2017-02-04 11:28] LABS: Glucose,Whole Blood 141 mg/dL (75-99)
[2017-02-04 11:30] LABS: Add Differential Manual Differential
[2017-02-04 11:35] LABS: Nucleated Red Blood Cells 1 /100 WBC (0-0); Total Cells Counted 100
[2017-02-04 11:36] LABS: Manual Review Performed
[2017-02-04] MEDS: VANCOMYCIN 2,500 MG in SODIUM CHLORIDE 0.9% 500 ML IVPB SCH (11:47)
[2017-02-04] MEDS: NYSTATIN 100,000 UNIT/ML SUSP 500,000 UNIT/5 ML CUP PO SCH ×3 (15:26→21:22)
[2017-02-04 16:37] LABS: Glucose,Whole Blood 186 mg/dL (75-99)
--- NOTE | 2017-02-04 18:50 | PN ---
DATE OF SERVICE: 02/04/2017 This 66-year-old gentleman who was admitted with severe neutropenia and neutropenic fever and sepsis, is being closely monitored. His white count is improved to 1.1 at this time. No chest pain, no palpitations, no fever. Patient is on broad-spectrum antibiotics. Cultures are negative at this time. The patient is extremely weak at this time. PAST MEDICAL HISTORY: Reviewed. REVIEW OF SYSTEMS: CARDIOVASCULAR: No angina or palpitations. RESPIRATORY: As mentioned earlier. GI: As mentioned earlier. : No dysuria. NERVOUS SYSTEM: No numbness or weakness. The current medications are reviewed and include: 1. Raven 5 mg q.6 p.r.n. 2. Ventolin HFA. 3. Aspirin 81 mg. 4. Lipitor 20 mg q.h.s. 5. Cefepime 2 grams IV q.8. 6. Savaysa 60 mg p.o. daily. 7. Proscar 5 mg q.h.s. 8. Flonase one spray daily. 9. Humalog scale. 10. Zestril 20 mg q.h.s. 11. Lopressor 25 mg t.i.d. 12. Replacement. 13. Nitrostat 0.4 sublingual p.r.n. 14. Mycostatin. 15. Zofran. 16. Ditropan. 17. Protonix. 18. K-Dur 20 mEq. 19. Restoril. 20. Vancomycin. PHYSICAL EXAM: The patient is alert and oriented x3. Pulse 94, blood pressure 159/74, respirations 17, temperature 99 degrees, pulse ox 99% on room air. HEENT: Conjunctivae normal. NECK: No jugular venous distention. CARDIOVASCULAR: S1 and S2, muffled. RESPIRATORY: Breath sounds diminished at the bases. A few scattered rhonchi. No crackles. ABDOMEN: Soft, obese, nontender. No mass palpable. LEGS: Bilateral leg cellulitis and dry skin also present. Right leg cellulitis also present. NERVOUS SYSTEM: Higher function as mentioned. Diffusely weak especially the proximal muscles. LYMPHATIC: No lymphadenopathy in the neck, axillae or groin. SKIN: As mentioned earlier. LABS: WBC 1.1, hemoglobin 9.2, platelets 4.1, sodium 132, potassium 3.6. ASSESSMENT: 1. Severe neutropenia and neutropic sepsis present on admission. 2. Severe pancytopenia with leukopenia and neutropenia and thrombocytopenia secondary to chemotherapy, present on admission. 3. History of chemotherapy for cutaneous B-cell lymphoma status post. 4. History of chronic persistent atrial fibrillation. 5. Diabetes mellitus type 2 on Savaysa. 6. Super morbid obesity. 7. Degenerative joint disease. 8. Benign prostatic hypertrophy. 9. History of coronary artery disease. 10. History of bilateral leg legions. 11. Diabetes mellitus type 2. 12. History of asthma. 13. History of coronary artery disease, cardiac catheterization and stent. 14. Hypertension. 15. Hyperlipidemia. 16. History of degenerative joint disease. 17. History of prostate cancer. 18. History of skin disease. 19. History of head injury. 20. Previous history of 2.6 pulmonary nodule, no evidence in the current x-ray. 21. FULL CODE. RECOMMENDATIONS AND DISCUSSION: I recommend to continue current medications, continue with monitoring and symptomatic treatment. Otherwise at this time continue with broad-spectrum IV antibiotics. PT, OT evaluation and possible ECF rehab. Will repeat labs at this time. Follow the cultures. Guarded prognosis because of multiple complex medical issues. Further recommendations to follow. MTDD
--- NOTE | 2017-02-04 20:42 | P.PN ---
Subjective Principal diagnosis: Febrile illness, sepsis This is a 66-year-old male with a significant past history of cutaneous B-cell lymphoma with lesions on the left lower extremity and chronic edema and cellulitis to the bilateral lower extremities. He received PCHOP with Neulasta starting in August and completed on 12/22/2016. He was then hospitalized December 29 through January 05 at which time he was treated for MRSA infection and cellulitis to the right lower extremity and seen by Dr. Spears. He was on IV vancomycin which was discontinued at the time of his transfer due to trough of 34. He went to [facility] for rehabilitation and patient states he did very well there and gained strength and was discharged home. He was subsequently started on chemotherapy which he does not know the name. He states he has had some nausea and not able to drink fluids. He had a fall because his lower extremities gave out on him and he slowly let himself down to the floor. He did have abrasion to the left shoulder but no other injuries were noted. He came into [facility] emergency center for evaluation. Chest x-ray showed no acute findings. He was febrile with a temperature 103.3. Patient does not recall having a fever at home but his thought he probably did. White count 0.1 with repeated 0.2. Patient noted to have pancytopenia and hypokalemia. Influenza testing was negative for A and B. Urinalysis was cloudy, protein 1+, glucose trace, blood trace, bacteria moderate. Patient states he was able to eat his entire breakfast this morning and nausea is improved. He is taking in water. He states he scraped the lateral side of his right lower extremity while getting chemotherapy and there is a small amount of weeping at the site. The edema to his lower extremities is at his normal amount per patient. Fevers have now improved on current antibiotic therapy. Patient feeling slightly better. the right lower extremity swelling erythema is improved. He has denying further chill or rigor. Slightly increased strength. Patient is pleased by the increase in whiount of 1.1. Objective - Vital Signs Vital signs: Vital Signs Temp 97.5 F L 02/04/17 16:00 Pulse 75 02/04/17 16:00 Resp 18 02/04/17 16:00 BP 126/60 02/04/17 16:00 Pulse Ox 96 02/04/17 16:00 Intake & Output 02/04/17 02/04/17 02/05/17 06:59 18:59 07:59 Intake Total 550 534 Output Total 650 300 Balance -100 234 Weight 175 kg 175 kg Intake: IV 50 Cefepime 2 gm In Sodium 50 Chloride 0.9% 50 ml @ 100 mls/hr IVPB Q8HR [facility] Rx# :[id number] Intake, IV Titration 500 Amount Vancomycin 2,500 mg In 500 Sodium Chloride 0.9% 500 ml @ 167 mls/hr IVPB Q16H [facility] Rx#:[id number] Oral 534 Output: Urine 650 300 Other: Voiding Method Bedside Commode # Voids 2 # Bowel Movements 1 - Exam Gen: This is a 66-year-old morbidly obese male. He is sitting on a commode chair and appears to be in no acute distress. HEENT: Head is atraumatic, normocephalic. Large fatty tumor noted on the right occipital area, nontender. Pupils equal, round. Sclerae is anicteric. Conjunctiva pale. Mucous membranes of the mouth are moist. Lesion noted on the left side of his tongue. No thrush. NECK: Supple. No JVD. No lymphadenopathy. No thyromegaly. LUNGS: Clear to auscultation. No wheezes or rhonchi. No intercostal retractions. HEART: Regular rate and rhythm. No murmur. Tachycardic. ABDOMEN: Morbidly obese. Soft. Bowel sounds are present. No masses. No tenderness. EXTREMITIES: 3+ chronic edema to the lower extremities bilaterally with the ulceration of the right lower extremity lateral upper aspect of the calf NEUROLOGICAL: Patient is awake, alert and oriented x3. - Labs CBC & Chem 7: 02/04/17 08:59 02/04/17 08:59 Labs: Abnormal Lab Results - Last 24 Hours (Table) 02/03/17 02/04/17 02/04/17 Range/Units 20:47 06:30 08:59 WBC (3.8-10.6) k/uL RBC (4.30-5.90) m/uL Hgb (13.0-17.5) gm/dL Hct (39.0-53.0) % Plt Count (150-450) k/uL Neutrophils # (Manual) (1.3-7.7) k/uL Lymphocytes # (Manual) (1.0-4.8) k/uL Nucleated RBCs (0-0) /100 WBC Sodium 135 L (137-145) mmol/L Potassium 3.3 L (3.5-5.1) mmol/L Glucose 150 H (74-99) mg/dL POC Glucose (mg/dL) 144 H 129 H (75-99) mg/dL Calcium 7.9 L (8.4-10.2) mg/dL 02/04/17 02/04/17 02/04/17 Range/Units 08:59 11:26 16:35 WBC 1.1 L* (3.8-10.6) k/uL RBC 2.98 L (4.30-5.90) m/uL Hgb 9.2 L (13.0-17.5) gm/dL Hct 28.8 L (39.0-53.0) % Plt Count 41 L* (150-450) k/uL Neutrophils # (Manual) 0.6 L (1.3-7.7) k/uL Lymphocytes # (Manual) 0.2 L (1.0-4.8) k/uL Nucleated RBCs 1 H (0-0) /100 WBC Sodium (137-145) mmol/L Potassium (3.5-5.1) mmol/L Glucose (74-99) mg/dL POC Glucose (mg/dL) 141 H 186 H (75-99) mg/dL Calcium (8.4-10.2) mg/dL Laboratory Results WBC 1.1 k/uL (3.8-10.6) L* 02/04/17 08:59 RBC 2.98 m/uL (4.30-5.90) L 02/04/17 08:59 Hgb 9.2 gm/dL (13.0-17.5) L 02/04/17 08:59 Hct 28.8 % (39.0-53.0) L 02/04/17 08:59 MCV 96.6 fL (80.0-100.0) 02/04/17 08:59 MCH 30.7 pg (25.0-35.0) 02/04/17 08:59 MCHC 31.8 g/dL (31.0-37.0) 02/04/17 08:59 RDW 14.7 % (11.5-15.5) 02/04/17 08:59 Plt Count 41 k/uL (150-450) L* 02/04/17 08:59 Neutrophils % (Manual) 52.0 % 02/04/17 08:59 Band Neutrophils % 4.0 % 02/04/17 08:59 Lymphocytes % (Manual) 20.0 % 02/04/17 08:59 Monocytes % (Manual) 7.0 % 02/04/17 08:59 Eosinophils % (Manual) 17.0 % 02/04/17 08:59 Neutrophils # (Manual) 0.6 k/uL (1.3-7.7) L 02/04/17 08:59 Lymphocytes # (Manual) 0.2 k/uL (1.0-4.8) L 02/04/17 08:59 Monocytes # (Manual) 0.1 k/uL (0-1.0) 02/04/17 08:59 Eosinophils # (Manual) 0.2 k/uL (0-0.7) 02/04/17 08:59 Nucleated RBCs 1 /100 WBC (0-0) H 02/04/17 08:59 Differential Comment 02/02/17 06:00 Manual Slide Review Performed 02/04/17 08:59 RBC Morphology Normal 02/01/17 17:35 Poikilocytosis (manual Present 02/02/17 06:00 Anisocytosis (manual) Present 02/02/17 06:00 Tear Drop Cells Present 02/02/17 06:00 PT 14.3 sec (9.0-12.0) H 02/01/17 18:04 INR 1.5 (<1.1) 02/01/17 18:04 APTT 28.3 sec (22.0-30.0) 02/01/17 18:04 Sodium 135 mmol/L (137-145) L 02/04/17 08:59 Potassium 3.3 mmol/L (3.5-5.1) L 02/04/17 08:59 Chloride 98 mmol/L (98-107) 02/04/17 08:59 Carbon Dioxide 30 mmol/L (22-30) 02/04/17 08:59 Anion Gap 7 mmol/L 02/04/17 08:59 BUN 19 mg/dL (9-20) 02/04/17 08:59 Creatinine 0.86 mg/dL (0.66-1.25) 02/04/17 08:59 Est GFR (MDRD) Af Amer >60 (>60 ml/min/1.73 sqM) 02/04/17 08:59 Est GFR (MDRD) Non-Af >60 (>60 ml/min/1.73 sqM) 02/04/17 08:59 Glucose 150 mg/dL (74-99) H 02/04/17 08:59 POC Glucose (mg/dL) 186 mg/dL (75-99) H 02/04/17 16:35 POC Glu Scrub Tech ID Mery Conley 02/04/17 16:[address] Glu mg/dL 143 mg/dL 02/02/17 06:00 Hemoglobin A1c 6.6 % (4.2-6.1) H 02/02/17 06:00 Plasma Lactic Acid Walter 1.1 mmol/L (0.7-2.0) 02/01/17 21:06 Calcium 7.9 mg/dL (8.4-10.2) L 02/04/17 08:59 Magnesium 1.9 mg/dL (1.6-2.3) 02/04/17 08:59 Total Bilirubin 1.5 mg/dL (0.2-1.3) H 02/01/17 17:35 AST 27 U/L (17-59) 02/01/17 17:35 ALT 31 U/L (21-72) 02/01/17 17:35 Alkaline Phosphatase 56 U/L (38-126) 02/01/17 17:35 Total Creatine Kinase 60 U/L (55-170) 02/01/17 17:35 CK-MB (CK-2) 0.6 ng/mL (0.0-2.4) 02/01/17 17:35 CK-MB (CK-2) Rel Index 1.0 02/01/17 17:35 Troponin I 0.093 ng/mL (0.000-0.034) H* 02/01/17 17:35 Total Protein 6.2 g/dL (6.3-8.2) L 02/01/17 17:35 Albumin 3.4 g/dL (3.5-5.0) L 02/01/17 17:35 Urine Color Yellow 03 17:35 Urine Appearance Cloudy (Clear) 02/01/17 17:35 Urine pH 5.5 (5.0-8.0) 02/01/17 17:35 Ur Specific [place] 1.011 (1.001-1.035) 02/01/17 17:35 Urine Protein 1+ (Negative) H 02/01/17 17:35 Urine Glucose (UA) Trace (Negative) H 02/01/17 17:35 Urine Ketones Negative (Negative) 02/01/17 17:35 Urine Blood Trace (Negative) H 02/01/17 17:35 Urine Nitrate Negative (Negative) 02/01/17 17:35 Urine Bilirubin Negative (Negative) 02/01/17 17:35 Urine Urobilinogen <2.0 mg/dL (<2.0) 02/01/17 17:35 Ur Leukocyte Esterase Negative (Negative) 02/01/17 17:35 Urine RBC 2 /hpf (0-5) 02/01/17 17:35 Urine WBC 3 /hpf (0-5) 03 17:35 Ur Squamous Epith Cells <1 /hpf (0-4) 02/01/17 17:35 Urine Bacteria Moderate /hpf (None) H 02/01/17 17:35 Granular Casts 4 /lpf (0) 02/01/17 17:35 Urine Mucus Rare /hpf (None) H 02/01/17 17:35 Vancomycin Trough 16.3 ug/mL 02/03/17 18:41 Influenza Type A RNA Not Detected (Not Detectd) 02/01/17 17:35 Influenza Type B (PCR) Not Detected (Not Detectd) 02/01/17 17:35 Microbiology 02/01/17 17:35 Blood Blood Culture - Preliminary No Growth after 72 hours Assessment and Plan (1) Febrile illness, acute Narrative/Plan: 66-year-old male who has a history of cutaneous B-cell lymphoma who developed increasing difficulty with his left leg. Recently completed his course of chemotherapy. He received some Neulasta. Presents with difficulty with fever and neutropenia. Improving with current antibiotic therapy. Does have some ulcerations the right lateral aspect of his leg. Local wound care as requested. Elevate the limb as he can. Cultures are negative so far. Neutropenia persists and is being followed by hematology oncology. White blood cell count has Has increased to 1.1 today. He is feeling just a little better but certainly not at his baseline. Would expect that his white count will continue to improve and hopefully 48 hours he will be elevated and he 'll have further improvement of how he is feeling. His or cultures are negative be monitored. Status: Acute (2) Leukopenia Status: Acute
[2017-02-04 20:54] LABS: Glucose,Whole Blood 165 mg/dL (75-99)
[2017-02-04] MEDS: ATORVASTATIN 10 MG TAB PO SCH (21:21)
[2017-02-04] MEDS: FINASTERIDE 5 MG TAB PO SCH (21:22)
[2017-02-05] MEDS: VANCOMYCIN 2,500 MG in SODIUM CHLORIDE 0.9% 500 ML IVPB SCH ×2 (03:59→20:36)
[2017-02-05 06:37] LABS: Glucose,Whole Blood 123 mg/dL (75-99)
[2017-02-05] MEDS: INSULIN LISPRO (humaLOG) 300 UNIT/3 ML VIAL SQ SCH ×4 (06:43→20:59)
[2017-02-05 07:07] LABS: Basophils % (A) 1 %; CH 31.4; CHCM 32.2; Eosinophils # (A) 0.1 k/uL (0-0.7); Eosinophils % (A) 6 %; HCT 27.3 % (39.0-53.0); HDW 2.98; HGB 8.6 gm/dL (13.0-17.5); Luc # (Auto) 0.05; Luc % (Auto) 3; Lymphocytes # (A) 0.3 k/uL (1.0-4.8); Lymphocytes % (A) 17 %; MCH 30.7 pg (25.0-35.0); MCHC 31.4 g/dL (31.0-37.0); MCV 97.8 fL (80.0-100.0); Mean Platelet Volume 10.1; Monocytes # (A) 0.1 k/uL (0-1.0); Monocytes % (A) 6 %; Neutrophils # (A) 1.2 k/uL (1.3-7.7); Neutrophils % (A) 68 %; RBC 2.79 m/uL (4.30-5.90); RDW 14.9 % (11.5-15.5); WBC (Perox) 1.97
[2017-02-05 07:15] LABS: Anion Gap 7 mmol/L; Blood Urea Nitrogen 16 mg/dL (9-20); Calcium 7.8 mg/dL (8.4-10.2); Carbon Dioxide 30 mmol/L (22-30); Chloride 100 mmol/L (98-107); Glucose 122 mg/dL (74-99); Magnesium 1.8 mg/dL (1.6-2.3); Non-African American GFR(MDRD) >60 (>60 ml/min/1.73 sqM); Potassium 3.7 mmol/L (3.5-5.1); Sodium 137 mmol/L (137-145)
[2017-02-05 07:22] LABS: WBC 1.7 k/uL (3.8-10.6)
[2017-02-05] MEDS: OXYBUTYNIN 10 MG TAB.ER.24 PO SCH (07:50)
[2017-02-05] MEDS: POTASSIUM CHLORIDE ER 20 MEQ TAB.ER PO SCH (07:50)
[2017-02-05] MEDS: FLUTICASONE 50MCG/SPRAY NASAL 16GM EA NOSTRIL SCH (07:50)
[2017-02-05] MEDS: METOPROLOL TARTRATE 25 MG TAB PO SCH ×3 (07:50→20:30)
[2017-02-05] MEDS: PANTOPRAZOLE 40 MG TABLET PO SCH (07:50)
[2017-02-05] MEDS: NYSTATIN 100,000 UNIT/ML SUSP 500,000 UNIT/5 ML CUP PO SCH ×4 (07:51→20:30)
[2017-02-05] MEDS: LISINOPRIL 20 MG TAB PO SCH (07:51)
[2017-02-05] MEDS: CEFEPIME 2 GM in SODIUM CHLORIDE 0.9% 50 ML IVPB SCH ×2 (07:52→15:38)
[2017-02-05 11:39] LABS: Glucose,Whole Blood 141 mg/dL (75-99)
[2017-02-05 16:41] LABS: Glucose,Whole Blood 130 mg/dL (75-99)
--- NOTE | 2017-02-05 16:51 | PN ---
DATE OF SERVICE: 02/05/2017 This is a 66-year-old gentleman who was admitted with severe neutropenia and neutropenia sepsis, is being closely monitored. Patient still complaining of tiredness which is improving. White count is elevated to 1.7. Multiple consultants are following the patient closely including Dr. Vazquez for Infectious Disease. PT, OT is evaluating for possible ECF rehab. No chest pain or palpitation, no fever. On exam, alert and oriented x3. Pulse is 77, blood pressure 111/59, respirations 16, temperature is 97 degrees, pulse ox 98% on room air. HEENT: Conjunctivae normal. NECK: No jugular venous distension. CARDIORESPIRATORY: S1, S2, muffled. RESPIRATORY: Breath sounds diminished at the bases. A few scattered rhonchi. ABDOMEN: Soft, nontender. EXTREMITIES: Legs bilateral leg edema and swelling. NERVOUS SYSTEM: No focal deficits. Labs are WBC is 1.7, hemoglobin is 8.6, platelets 39, calcium is 7.8. ASSESSMENT: 1. Severe neutropenia and neutropenic sepsis, present on admission. 2. Severe pancytopenia with leukopenia and neutropenia and thrombocytopenia secondary to chemotherapy present on admission. 3. History of chemotherapy for cutaneous B-cell lymphoma. 4. History of chronic persistent atrial fibrillation. 5. Diabetes mellitus type 2 on [place]. 6. Super morbid obesity. 7. Degenerative joint disease. 8. Benign prostatic hypertrophy. 9. History of coronary artery disease. 10. History of bilateral leg cellulitis and swelling. 11. History of asthma. 12. History of coronary artery disease, cardiac catheterization and stent. 13. Hypertension. 14. Hyperlipidemia. 15. History of degenerative joint disease. 16. History of prostate cancer. 17. History of skin disease. 18. History of head injury. 19. Previous history of 2.6 pulmonary nodule. No evidence on the current chest x-ray. 20. FULL CODE. RECOMMENDATION: Recommend to continue current medications. Continue with the current medications and local treatment, continue with broad-spectrum IV antibiotics and follow the cultures. PT, OT evaluation, possible ECF rehab. Monitor telemetry closely, because of the cardiac history. Prognosis guarded. Discussed with the patient and family. Further recommendations to follow.
[2017-02-05] MEDS: ATORVASTATIN 10 MG TAB PO SCH (20:30)
[2017-02-05] MEDS: FINASTERIDE 5 MG TAB PO SCH (20:30)
--- NOTE | 2017-02-05 20:35 | P.PN ---
Subjective Principal diagnosis: Febrile illness, sepsis This is a 66-year-old male with a significant past history of cutaneous B-cell lymphoma with lesions on the left lower extremity and chronic edema and cellulitis to the bilateral lower extremities. He received PCHOP with Neulasta starting in August and completed on 12/22/2016. He was then hospitalized December 29 through January 05 at which time he was treated for MRSA infection and cellulitis to the right lower extremity and seen by Dr. Spears. He was on IV vancomycin which was discontinued at the time of his transfer due to trough of 34. He went to [facility] for rehabilitation and patient states he did very well there and gained strength and was discharged home. He was subsequently started on chemotherapy which he does not know the name. He states he has had some nausea and not able to drink fluids. He had a fall because his lower extremities gave out on him and he slowly let himself down to the floor. He did have abrasion to the left shoulder but no other injuries were noted. He came into [facility] emergency center for evaluation. Chest x-ray showed no acute findings. He was febrile with a temperature 103.3. Patient does not recall having a fever at home but his thought he probably did. White count 0.1 with repeated 0.2. Patient noted to have pancytopenia and hypokalemia. Influenza testing was negative for A and B. Urinalysis was cloudy, protein 1+, glucose trace, blood trace, bacteria moderate. Patient states he was able to eat his entire breakfast this morning and nausea is improved. He is taking in water. He states he scraped the lateral side of his right lower extremity while getting chemotherapy and there is a small amount of weeping at the site. The edema to his lower extremities is at his normal amount per patient. Fevers have now improved on current antibiotic therapy. Patient feeling slightly better. the right lower extremity swelling erythema is much improved. He has denying further chill or rigor. Slightly increased strength. Patient is pleased by the increase in WBC to1.7. Objective - Vital Signs Vital signs: Vital Signs Temp 98.7 F 02/05/17 16:00 Pulse 77 02/05/17 16:00 Resp 18 02/05/17 16:00 BP 109/70 02/05/17 16:00 Pulse Ox 94 L 02/05/17 16:00 Intake & Output 02/05/17 02/05/17 02/06/17 06:59 18:59 06:59 Intake Total 100 Output Total 2024 Balance -1924 Weight 183.1 kg Intake: IV Cefepime 2 gm In Sodium Chloride 0.9% 50 ml @ 100 mls/hr IVPB Q8HR [facility] Rx# :[id number] Intake, IV Titration Amount Vancomycin 2,500 mg In Sodium Chloride 0.9% 500 ml @ 167 mls/hr IVPB Q16H [facility] Rx#:[id number] Oral 100 Output: Urine 2024 Other: Voiding Method Bedside Commode # Voids 1 # Bowel Movements 1 - Exam Gen: This is a 66-year-old morbidly obese male. He is sitting on a commode chair and appears to be in no acute distress. HEENT: Head is atraumatic, normocephalic. Large fatty tumor noted on the right occipital area, nontender. Pupils equal, round. Sclerae is anicteric. Conjunctiva pale. Mucous membranes of the mouth are moist. Lesion noted on the left side of his tongue. No thrush. NECK: Supple. No JVD. No lymphadenopathy. No thyromegaly. LUNGS: Clear to auscultation. No wheezes or rhonchi. No intercostal retractions. HEART: Regular rate and rhythm. No murmur. Tachycardic. ABDOMEN: Morbidly obese. Soft. Bowel sounds are present. No masses. No tenderness. EXTREMITIES: 3+ chronic edema to the lower extremities bilaterally with the ulceration of the right lower extremity lateral upper aspect of the calf improved NEUROLOGICAL: Patient is awake, alert and oriented x3. - Labs CBC & Chem 7: 02/05/17 06:15 02/05/17 06:15 Labs: Abnormal Lab Results - Last 24 Hours (Table) 02/04/17 02/05/17 02/05/17 Range/Units 20:50 06:15 06:15 WBC 1.7 L* (3.8-10.6) k/uL RBC 2.79 L (4.30-5.90) m/uL Hgb 8.6 L (13.0-17.5) gm/dL Hct 27.3 L (39.0-53.0) % Plt Count 39 L* (150-450) k/uL Neutrophils # 1.2 L (1.3-7.7) k/uL Lymphocytes # 0.3 L (1.0-4.8) k/uL Glucose 122 H (74-99) mg/dL POC Glucose (mg/dL) 165 H (75-99) mg/dL Calcium 7.8 L (8.4-10.2) mg/dL 02/05/17 02/05/17 02/05/17 Range/Units 06:33 11:37 16:39 WBC (3.8-10.6) k/uL RBC (4.30-5.90) m/uL Hgb (13.0-17.5) gm/dL Hct (39.0-53.0) % Plt Count (150-450) k/uL Neutrophils # (1.3-7.7) k/uL Lymphocytes # (1.0-4.8) k/uL Glucose (74-99) mg/dL POC Glucose (mg/dL) 123 H 141 H 130 H (75-99) mg/dL Calcium (8.4-10.2) mg/dL Laboratory Results WBC 1.7 k/uL (3.8-10.6) L* 02/05/17 06:15 RBC 2.79 m/uL (4.30-5.90) L 02/05/17 06:15 Hgb 8.6 gm/dL (13.0-17.5) L 02/05/17 06:15 Hct 27.3 % (39.0-53.0) L 02/05/17 06:15 MCV 97.8 fL (80.0-100.0) 02/05/17 06:15 MCH 30.7 pg (25.0-35.0) 02/05/17 06:15 MCHC 31.4 g/dL (31.0-37.0) 02/05/17 06:15 RDW 14.9 % (11.5-15.5) 02/05/17 06:15 Plt Count 39 k/uL (150-450) L* 02/05/17 06:15 Neutrophils % 68 % 02/05/17 06:15 Neutrophils % (Manual) 52.0 % 02/04/17 08:59 Band Neutrophils % 4.0 % 02/04/17 08:59 Lymphocytes % 17 % 02/05/17 06:15 Lymphocytes % (Manual) 20.0 % 02/04/17 08:59 Monocytes % 6 % 02/05/17 06:15 Monocytes % (Manual) 7.0 % 02/04/17 08:59 Eosinophils % 6 % 02/05/17 06:15 Eosinophils % (Manual) 17.0 % 02/04/17 08:59 Basophils % 1 % 02/05/17 06:15 Neutrophils # 1.2 k/uL (1.3-7.7) L 02/05/17 06:15 Neutrophils # (Manual) 0.6 k/uL (1.3-7.7) L 02/04/17 08:59 Lymphocytes # 0.3 k/uL (1.0-4.8) L 02/05/17 06:15 Lymphocytes # (Manual) 0.2 k/uL (1.0-4.8) L 02/04/17 08:59 Monocytes # 0.1 k/uL (0-1.0) 02/05/17 06:15 Monocytes # (Manual) 0.1 k/uL (0-1.0) 02/04/17 08:59 Eosinophils # 0.1 k/uL (0-0.7) 02/05/17 06:15 Eosinophils # (Manual) 0.2 k/uL (0-0.7) 02/04/17 08:59 Basophils # 0.0 k/uL (0-0.2) 02/05/17 06:15 Nucleated RBCs 1 /100 WBC (0-0) H 02/04/17 08:59 Differential Comment 02/02/17 06:00 Manual Slide Review Performed 02/04/17 08:59 RBC Morphology Normal 02/01/17 17:35 Poikilocytosis (manual Present 02/02/17 06:00 Anisocytosis (manual) Present 02/02/17 06:00 Tear Drop Cells Present 02/02/17 06:00 PT 14.3 sec (9.0-12.0) H 02/01/17 18:04 INR 1.5 (<1.1) 02/01/17 18:04 APTT 28.3 sec (22.0-30.0) 02/01/17 18:04 Sodium 137 mmol/L (137-145) 02/05/17 06:15 Potassium 3.7 mmol/L (3.5-5.1) 02/05/17 06:15 Chloride 100 mmol/L (98-107) 02/05/17 06:15 Carbon Dioxide 30 mmol/L (22-30) 02/05/17 06:15 Anion Gap 7 mmol/L 02/05/17 06:15 BUN 16 mg/dL (9-20) 02/05/17 06:15 Creatinine 0.90 mg/dL (0.66-1.25) 02/05/17 06:15 Est GFR (MDRD) Af Amer >60 (>60 ml/min/1.73 sqM) 02/05/17 06:15 Est GFR (MDRD) Non-Af >60 (>60 ml/min/1.73 sqM) 02/05/17 06:15 Glucose 122 mg/dL (74-99) H 02/05/17 06:15 POC Glucose (mg/dL) 130 mg/dL (75-99) H 02/05/17 16:39 POC Glu Corporate Learning Consultant ID Mery Conley 02/05/17 16:[address] Glu mg/dL 143 mg/dL 02/02/17 06:00 Hemoglobin A1c 6.6 % (4.2-6.1) H 02/02/17 06:00 Plasma Lactic Acid Walter 1.1 mmol/L (0.7-2.0) 02/01/17 21:06 Calcium 7.8 mg/dL (8.4-10.2) L 02/05/17 06:15 Magnesium 1.8 mg/dL (1.6-2.3) 02/05/17 06:15 Total Bilirubin 1.5 mg/dL (0.2-1.3) H 02/01/17 17:35 AST 27 U/L (17-59) 02/01/17 17:35 ALT 31 U/L (21-72) 02/01/17 17:35 Alkaline Phosphatase 56 U/L (38-126) 02/01/17 17:35 Total Creatine Kinase 60 U/L (55-170) 02/01/17 17:35 CK-MB (CK-2) 0.6 ng/mL (0.0-2.4) 02/01/17 17:35 CK-MB (CK-2) Rel Index 1.0 03 17:35 Troponin I 0.093 ng/mL (0.000-0.034) H* 02/01/17 17:35 Total Protein 6.2 g/dL (6.3-8.2) L 02/01/17 17:35 Albumin 3.4 g/dL (3.5-5.0) L 03 17:35 Urine Color Yellow 03 17:35 Urine Appearance Cloudy (Clear) 02/01/17 17:35 Urine pH 5.5 (5.0-8.0) 03 17:35 Ur Specific [place] 1.011 (1.001-1.035) 02/01/17 17:35 Urine Protein 1+ (Negative) H 02/01/17 17:35 Urine Glucose (UA) Trace (Negative) H 02/01/17 17:35 Urine Ketones Negative (Negative) 02/01/17 17:35 Urine Blood Trace (Negative) H 02/01/17 17:35 Urine Nitrate Negative (Negative) 02/01/17 17:35 Urine Bilirubin Negative (Negative) 02/01/17 17:35 Urine Urobilinogen <2.0 mg/dL (<2.0) 03 17:35 Ur Leukocyte Esterase Negative (Negative) 02/01/17 17:35 Urine RBC 2 /hpf (0-5) 02/01/17 17:35 Urine WBC 3 /hpf (0-5) 02/01/17 17:35 Ur Squamous Epith Cells <1 /hpf (0-4) 02/01/17 17:35 Urine Bacteria Moderate /hpf (None) H 02/01/17 17:35 Granular Casts 4 /lpf (0) 02/01/17 17:35 Urine Mucus Rare /hpf (None) H 02/01/17 17:35 Vancomycin Trough 16.3 ug/mL 02/03/17 18:41 Influenza Type A RNA Not Detected (Not Detectd) 02/01/17 17:35 Influenza Type B (PCR) Not Detected (Not Detectd) 02/01/17 17:35 Microbiology 02/01/17 17:35 Blood Blood Culture - Preliminary No Growth after 96 hours Assessment and Plan (1) Febrile illness, acute Narrative/Plan: 66-year-old male who has a history of cutaneous B-cell lymphoma who developed increasing difficulty with his left leg. Recently completed his course of chemotherapy. He received some Neulasta. Presents with difficulty with fever and neutropenia. Improving with current antibiotic therapy. Does have some ulcerations the right lateral aspect of his leg. Local wound care as requested. Elevate the limb as he can. Cultures are negative so far. Neutropenia persists and is being followed by hematology oncology. White blood cell count has Has increased to 1.7 today. He is feeling just a little better but certainly not at his baseline. Would expect that his white count will continue to improve and hopefully 48 hours he will be elevated and he'll have further improvement of how he is feeling. The cultures are negative and are monitored. Status: Acute (2) Leukopenia Status: Acute
[2017-02-05 21:12] LABS: Glucose,Whole Blood 146 mg/dL (75-99)
[2017-02-06] MEDS: CEFEPIME 2 GM in SODIUM CHLORIDE 0.9% 50 ML IVPB SCH ×4 (00:30→23:19)
[2017-02-06 06:35] LABS: Glucose,Whole Blood 141 mg/dL (75-99)
[2017-02-06 06:55] LABS: Basophils % (A) 0 %; CH 31.4; CHCM 32.9; Eosinophils # (A) 0.1 k/uL (0-0.7); Eosinophils % (A) 2 %; HCT 28.7 % (39.0-53.0); HDW 3.12; HGB 9.5 gm/dL (13.0-17.5); Luc # (Auto) 0.05; Luc % (Auto) 2; Lymphocytes # (A) 0.3 k/uL (1.0-4.8); Lymphocytes % (A) 11 %; MCH 31.6 pg (25.0-35.0); MCV 95.8 fL (80.0-100.0); Mean Platelet Volume 10.4; Monocytes # (A) 0.1 k/uL (0-1.0); Monocytes % (A) 4 %; Neutrophils # (A) 1.9 k/uL (1.3-7.7); Neutrophils % (A) 81 %; RBC 2.99 m/uL (4.30-5.90); RDW 15.1 % (11.5-15.5); WBC 2.3 k/uL (3.8-10.6)
[2017-02-06] MEDS: INSULIN LISPRO (humaLOG) 300 UNIT/3 ML VIAL SQ SCH ×4 (06:55→21:31)
[2017-02-06 07:04] LABS: Anion Gap 8 mmol/L; Blood Urea Nitrogen 14 mg/dL (9-20); Calcium 8.1 mg/dL (8.4-10.2); Carbon Dioxide 31 mmol/L (22-30); Chloride 99 mmol/L (98-107); Glucose 141 mg/dL (74-99); Non-African American GFR(MDRD) >60 (>60 ml/min/1.73 sqM); Potassium 3.5 mmol/L (3.5-5.1); Sodium 138 mmol/L (137-145)
[2017-02-06] MEDS: NYSTATIN 100,000 UNIT/ML SUSP 500,000 UNIT/5 ML CUP PO SCH ×4 (09:12→22:16)
[2017-02-06] MEDS: LISINOPRIL 20 MG TAB PO SCH (09:12)
[2017-02-06] MEDS: METOPROLOL TARTRATE 25 MG TAB PO SCH ×3 (09:12→21:31)
[2017-02-06] MEDS: FLUTICASONE 50MCG/SPRAY NASAL 16GM EA NOSTRIL SCH (09:12)
[2017-02-06] MEDS: POTASSIUM CHLORIDE ER 20 MEQ TAB.ER PO SCH (09:13)
[2017-02-06] MEDS: OXYBUTYNIN 10 MG TAB.ER.24 PO SCH (09:13)
[2017-02-06] MEDS: PANTOPRAZOLE 40 MG TABLET PO SCH (09:13)
[2017-02-06] MEDS ORDERED: VANCOMYCIN TROUGH DUE 1 EACH MISC MISCELLANE ONE ×2 (11:00→19:00)
[2017-02-06] MEDS: VANCOMYCIN 2,500 MG in SODIUM CHLORIDE 0.9% 500 ML IVPB SCH (11:41)
[2017-02-06 12:08] LABS: Glucose,Whole Blood 138 mg/dL (75-99)
[2017-02-06 17:02] LABS: Glucose,Whole Blood 123 mg/dL (75-99)
--- NOTE | 2017-02-06 19:37 | P.PN ---
Subjective Principal diagnosis: Febrile illness, sepsis This is a 66-year-old male with a significant past history of cutaneous B-cell lymphoma with lesions on the left lower extremity and chronic edema and cellulitis to the bilateral lower extremities. He received PCHOP with Neulasta starting in August and completed on 12/22/2016. He was then hospitalized December 29 through January 05 at which time he was treated for MRSA infection and cellulitis to the right lower extremity and seen by Dr. Spears. He was on IV vancomycin which was discontinued at the time of his transfer due to trough of 34. He went to [facility] for rehabilitation and patient states he did very well there and gained strength and was discharged home. He was subsequently started on chemotherapy which he does not know the name. He states he has had some nausea and not able to drink fluids. He had a fall because his lower extremities gave out on him and he slowly let himself down to the floor. He did have abrasion to the left shoulder but no other injuries were noted. He came into [facility] emergency center for evaluation. Chest x-ray showed no acute findings. He was febrile with a temperature 103.3. Patient does not recall having a fever at home but his thought he probably did. White count 0.1 with repeated 0.2. Patient noted to have pancytopenia and hypokalemia. Influenza testing was negative for A and B. Urinalysis was cloudy, protein 1+, glucose trace, blood trace, bacteria moderate. Patient states he was able to eat his entire breakfast this morning and nausea is improved. He is taking in water. He states he scraped the lateral side of his right lower extremity while getting chemotherapy and there is a small amount of weeping at the site. The edema to his lower extremities is at his normal amount per patient. Fevers have now improved on current antibiotic therapy. Patient feeling slightly better. the right lower extremity swelling erythema is much improved. He has denying further chill or rigor. Slightly increased strength. Patient is pleased by the increase in WBC to 2.3 Objective - Vital Signs Vital signs: Vital Signs Temp 97 F L 02/06/17 16:00 Pulse 60 02/06/17 16:00 Resp 17 02/06/17 16:00 BP 132/70 02/06/17 16:00 Pulse Ox 98 02/06/17 16:00 Intake & Output 02/06/17 02/06/17 02/07/17 06:59 18:59 06:59 Intake Total 390 Output Total 850 300 Balance -850 90 Weight 179.9 kg Intake: IV 50 Cefepime 2 gm In Sodium 50 Chloride 0.9% 50 ml @ 100 mls/hr IVPB Q8HR [facility] Rx# :[id number] Oral 340 Output: Urine 850 300 Other: Voiding Method Bedside Commode Bedside Commode Urinal Urinal # Voids 1 # Bowel Movements 1 - Exam Gen: This is a 66-year-old morbidly obese male. He is sitting on a commode chair and appears to be in no acute distress. HEENT: Head is atraumatic, normocephalic. Large fatty tumor noted on the right occipital area, nontender. Pupils equal, round. Sclerae is anicteric. Conjunctiva pale. Mucous membranes of the mouth are moist. Lesion noted on the left side of his tongue. No thrush. NECK: Supple. No JVD. No lymphadenopathy. No thyromegaly. LUNGS: Clear to auscultation. No wheezes or rhonchi. No intercostal retractions. HEART: Regular rate and rhythm. No murmur. Tachycardic. ABDOMEN: Morbidly obese. Soft. Bowel sounds are present. No masses. No tenderness. EXTREMITIES: 3+ chronic edema to the lower extremities bilaterally with the ulceration of the right lower extremity lateral upper aspect of the calf improved NEUROLOGICAL: Patient is awake, alert and oriented x3. - Labs CBC & Chem 7: 02/06/17 06:21 02/06/17 06:21 Labs: Abnormal Lab Results - Last 24 Hours (Table) 02/05/17 02/06/17 02/06/17 Range/Units 20:43 06:21 06:21 WBC 2.3 L (3.8-10.6) k/uL RBC 2.99 L (4.30-5.90) m/uL Hgb 9.5 L (13.0-17.5) gm/dL Hct 28.7 L (39.0-53.0) % Plt Count 56 L (150-450) k/uL Lymphocytes # 0.3 L (1.0-4.8) k/uL Carbon Dioxide 31 H (22-30) mmol/L Glucose 141 H (74-99) mg/dL POC Glucose (mg/dL) 146 H (75-99) mg/dL Calcium 8.1 L (8.4-10.2) mg/dL 02/06/17 02/06/17 02/06/17 Range/Units 06:33 12:06 17:01 WBC (3.8-10.6) k/uL RBC (4.30-5.90) m/uL Hgb (13.0-17.5) gm/dL Hct (39.0-53.0) % Plt Count (150-450) k/uL Lymphocytes # (1.0-4.8) k/uL Carbon Dioxide (22-30) mmol/L Glucose (74-99) mg/dL POC Glucose (mg/dL) 141 H 138 H 123 H (75-99) mg/dL Calcium (8.4-10.2) mg/dL Laboratory Results WBC 2.3 k/uL (3.8-10.6) L 02/06/17 06:21 RBC 2.99 m/uL (4.30-5.90) L 02/06/17 06:21 Hgb 9.5 gm/dL (13.0-17.5) L 02/06/17 06:21 Hct 28.7 % (39.0-53.0) L 02/06/17 06:21 MCV 95.8 fL (80.0-100.0) 02/06/17 06:21 MCH 31.6 pg (25.0-35.0) 02/06/17 06:21 MCHC 33.0 g/dL (31.0-37.0) 02/06/17 06:21 RDW 15.1 % (11.5-15.5) 02/06/17 06:21 Plt Count 56 k/uL (150-450) L 02/06/17 06:21 Neutrophils % 81 % 02/06/17 06:21 Neutrophils % (Manual) 52.0 % 02/04/17 08:59 Band Neutrophils % 4.0 % 02/04/17 08:59 Lymphocytes % 11 % 02/06/17 06:21 Lymphocytes % (Manual) 20.0 % 02/04/17 08:59 Monocytes % 4 % 02/06/17 06:21 Monocytes % (Manual) 7.0 % 02/04/17 08:59 Eosinophils % 2 % 02/06/17 06:21 Eosinophils % (Manual) 17.0 % 02/04/17 08:59 Basophils % 0 % 02/06/17 06:21 Neutrophils # 1.9 k/uL (1.3-7.7) 02/06/17 06:21 Neutrophils # (Manual) 0.6 k/uL (1.3-7.7) L 02/04/17 08:59 Lymphocytes # 0.3 k/uL (1.0-4.8) L 02/06/17 06:21 Lymphocytes # (Manual) 0.2 k/uL (1.0-4.8) L 02/04/17 08:59 Monocytes # 0.1 k/uL (0-1.0) 02/06/17 06:21 Monocytes # (Manual) 0.1 k/uL (0-1.0) 02/04/17 08:59 Eosinophils # 0.1 k/uL (0-0.7) 02/06/17 06:21 Eosinophils # (Manual) 0.2 k/uL (0-0.7) 02/04/17 08:59 Basophils # 0.0 k/uL (0-0.2) 02/06/17 06:21 Nucleated RBCs 1 /100 WBC (0-0) H 02/04/17 08:59 Differential Comment 02/02/17 06:00 Manual Slide Review Performed 02/04/17 08:59 RBC Morphology Normal 02/01/17 17:35 Poikilocytosis (manual Present 02/02/17 06:00 Anisocytosis (manual) Present 02/02/17 06:00 Tear Drop Cells Present 02/02/17 06:00 PT 14.3 sec (9.0-12.0) H 02/01/17 18:04 INR 1.5 (<1.1) 02/01/17 18:04 APTT 28.3 sec (22.0-30.0) 02/01/17 18:04 Sodium 138 mmol/L (137-145) 02/06/17 06:21 Potassium 3.5 mmol/L (3.5-5.1) 02/06/17 06:21 Chloride 99 mmol/L (98-107) 02/06/17 06:21 Carbon Dioxide 31 mmol/L (22-30) H 02/06/17 06:21 Anion Gap 8 mmol/L 02/06/17 06:21 BUN 14 mg/dL (9-20) 02/06/17 06:21 Creatinine 0.75 mg/dL (0.66-1.25) 02/06/17 06:21 Est GFR (MDRD) Af Amer >60 (>60 ml/min/1.73 sqM) 02/06/17 06:21 Est GFR (MDRD) Non-Af >60 (>60 ml/min/1.73 sqM) 02/06/17 06:21 Glucose 141 mg/dL (74-99) H 02/06/17 06:21 POC Glucose (mg/dL) 123 mg/dL (75-99) H 02/06/17 17:01 POC Glu Rn Observation Mckenzie Tomas 02/06/17 17:[address] Glu mg/dL 143 mg/dL 02/02/17 06:00 Hemoglobin A1c 6.6 % (4.2-6.1) H 02/02/17 06:00 Plasma Lactic Acid Walter 1.1 mmol/L (0.7-2.0) 02/01/17 21:06 Calcium 8.1 mg/dL (8.4-10.2) L 02/06/17 06:21 Magnesium 1.8 mg/dL (1.6-2.3) 02/05/17 06:15 Total Bilirubin 1.5 mg/dL (0.2-1.3) H 02/01/17 17:35 AST 27 U/L (17-59) 02/01/17 17:35 ALT 31 U/L (21-72) 02/01/17 17:35 Alkaline Phosphatase 56 U/L (38-126) 02/01/17 17:35 Total Creatine Kinase 60 U/L (55-170) 02/01/17 17:35 CK-MB (CK-2) 0.6 ng/mL (0.0-2.4) 02/01/17 17:35 CK-MB (CK-2) Rel Index 1.0 02/01/17 17:35 Troponin I 0.093 ng/mL (0.000-0.034) H* 02/01/17 17:35 Total Protein 6.2 g/dL (6.3-8.2) L 02/01/17 17:35 Albumin 3.4 g/dL (3.5-5.0) L 02/01/17 17:35 Urine Color Yellow 02/01/17 17:35 Urine Appearance Cloudy (Clear) 02/01/17 17:35 Urine pH 5.5 (5.0-8.0) 02/01/17 17:35 Ur Specific [place] 1.011 (1.001-1.035) 02/01/17 17:35 Urine Protein 1+ (Negative) H 02/01/17 17:35 Urine Glucose (UA) Trace (Negative) H 02/01/17 17:35 Urine Ketones Negative (Negative) 02/01/17 17:35 Urine Blood Trace (Negative) H 02/01/17 17:35 Urine Nitrate Negative (Negative) 02/01/17 17:35 Urine Bilirubin Negative (Negative) 02/01/17 17:35 Urine Urobilinogen <2.0 mg/dL (<2.0) 02/01/17 17:35 Ur Leukocyte Esterase Negative (Negative) 02/01/17 17:35 Urine RBC 2 /hpf (0-5) 02/01/17 17:35 Urine WBC 3 /hpf (0-5) 02/01/17 17:35 Ur Squamous Epith Cells <1 /hpf (0-4) 02/01/17 17:35 Urine Bacteria Moderate /hpf (None) H 02/01/17 17:35 Granular Casts 4 /lpf (0) 02/01/17 17:35 Urine Mucus Rare /hpf (None) H 02/01/17 17:35 Vancomycin Trough 16.3 ug/mL 02/03/17 18:41 Influenza Type A RNA Not Detected (Not Detectd) 02/01/17 17:35 Influenza Type B (PCR) Not Detected (Not Detectd) 02/01/17 17:35 Microbiology 02/01/17 17:35 Blood Blood Culture - Preliminary No Growth after 96 hours Assessment and Plan (1) Febrile illness, acute Narrative/Plan: 66-year-old male who has a history of cutaneous B-cell lymphoma who developed increasing difficulty with his left leg. Recently completed his course of chemotherapy. He received some Neulasta. Presents with difficulty with fever and neutropenia. Improving with current antibiotic therapy. Does have some ulcerations the right lateral aspect of his leg. Local wound care as requested. Elevate the limb as he can. Cultures are negative so far. Neutropenia persists and is being followed by hematology oncology. White blood cell count has Has increased to 1.7 today. He is feeling just a little better but certainly not at his baseline. Would expect that his white count will continue to improve and hopefully 48 hours he will be elevated and he'll have further improvement of how he is feeling. The cultures are negative and are monitored. Status: Acute (2) Leukopenia Status: Acute
[2017-02-06 20:27] LABS: Glucose,Whole Blood 168 mg/dL (75-99)
--- NOTE | 2017-02-06 21:11 | PN ---
DATE OF SERVICE: 02/06/2017 This 66-year-old gentleman who was admitted with severe neutropenia, neutropenic sepsis, is being closely monitored. The patient is still complaining of tiredness and weakness but slightly better; has difficulty in walking and ambulation. White count is 2.3. Hemoglobin is 9.4. Cultures are negative so far. The cellulitis on the right leg is slightly improving. Patient has significant lesions on the right leg. On exam, alert and oriented x3. Pulse 87, blood pressure 128/67, respiration 17, temperature 97 degrees, pulse ox 97% on room air. HEENT: Conjunctivae normal. NECK: No jugular venous distention. CARDIOVASCULAR SYSTEM: S1, S2 muffled. RESPIRATORY: Breath sounds diminished at the bases A few scattered rhonchi. No crackles. ABDOMEN: Soft, obese, nontender. No mass palpable. LEGS: Bilateral dry skin is present. The right leg has significant cellulitis also present. NERVOUS SYSTEM: No focal motor or sensory deficit. LABS: WBC 2.3, hemoglobin 9.5. Accu-Cheks noted. Cultures are negative so far. ASSESSMENT: 1. Severe neutropenia as well as neutropenic sepsis, present on admission. 2. Severe pancytopenia with leukopenia and neutropenia and thrombocytopenia secondary to chemotherapy, present on admission. 3. Acute right lower leg cellulitis. 4. History of chemotherapy for cutaneous B-cell lymphoma. 5. History of chronic persistent atrial fibrillation. 6. Diabetes mellitus, type 2. 7. On [place]. 8. Super morbid obesity. 9. History of degenerative joint disease. 10. History of benign prostatic hypertrophy. 11. History of coronary artery disease. 12. History of bilateral leg cellulitis and swelling. 13. History of asthma. 14. History of coronary artery disease, cardiac catheterization and stent. 15. Hypertension. 16. Hyperlipidemia. 17. History of prostate disorder. 18. History of skin disease. 19. History of head injury. 20. Previous history of 2.6 pulmonary nodules; no evidence of features on the current chest x-ray. 21. FULL CODE. RECOMMENDATIONS AND DISCUSSION: I recommend to continue with the current medications, continue with the monitoring, optimize antibiotics. Otherwise, repeat labs. Increase ambulation. Possible ECF rehab. Guarded prognosis because of multiple complex medical issues. Further recommendations to follow.
[2017-02-06] MEDS: FINASTERIDE 5 MG TAB PO SCH (21:31)
[2017-02-06] MEDS: ATORVASTATIN 10 MG TAB PO SCH (21:31)
[2017-02-06] MEDS: ASPIRIN 81 MG CHEW PO SCH (21:31)
[2017-02-07] MEDS: VANCOMYCIN 2,500 MG in SODIUM CHLORIDE 0.9% 500 ML IVPB SCH ×2 (03:59→21:30)
[2017-02-07 07:12] LABS: Glucose,Whole Blood 146 mg/dL (75-99)
[2017-02-07] MEDS: EDOXABAN TOSYLATE 60 MG TABLET PO SCH (07:33)
[2017-02-07] MEDS: INSULIN LISPRO (humaLOG) 300 UNIT/3 ML VIAL SQ SCH ×4 (07:33→21:31)
[2017-02-07] MEDS: CEFEPIME 2 GM in SODIUM CHLORIDE 0.9% 50 ML IVPB SCH ×2 (07:33→15:28)
[2017-02-07] MEDS: PANTOPRAZOLE 40 MG TABLET PO SCH (07:34)
[2017-02-07] MEDS: METOPROLOL TARTRATE 25 MG TAB PO SCH ×3 (07:34→21:30)
[2017-02-07] MEDS: NYSTATIN 100,000 UNIT/ML SUSP 500,000 UNIT/5 ML CUP PO SCH ×4 (07:34→21:30)
[2017-02-07] MEDS: LISINOPRIL 20 MG TAB PO SCH (07:34)
[2017-02-07] MEDS: OXYBUTYNIN 10 MG TAB.ER.24 PO SCH (07:34)
[2017-02-07] MEDS: POTASSIUM CHLORIDE ER 20 MEQ TAB.ER PO SCH (07:34)
[2017-02-07] MEDS: FLUTICASONE 50MCG/SPRAY NASAL 16GM EA NOSTRIL SCH (07:35)
[2017-02-07 08:01] LABS: Anion Gap 8 mmol/L; Basophils % (A) 1 %; Blood Urea Nitrogen 12 mg/dL (9-20); CH 31.4; CHCM 32.4; Calcium 8.1 mg/dL (8.4-10.2); Carbon Dioxide 30 mmol/L (22-30); Chloride 101 mmol/L (98-107); Eosinophils % (A) 1 %; Glucose 145 mg/dL (74-99); HDW 3.19; HGB 9.1 gm/dL (13.0-17.5); Luc # (Auto) 0.07; Luc % (Auto) 3; Lymphocytes # (A) 0.3 k/uL (1.0-4.8); Lymphocytes % (A) 15 %; MCH 30.7 pg (25.0-35.0); MCHC 31.6 g/dL (31.0-37.0); MCV 97.3 fL (80.0-100.0); Mean Platelet Volume 9.6; Monocytes # (A) 0.1 k/uL (0-1.0); Monocytes % (A) 5 %; Neutrophils # (A) 1.7 k/uL (1.3-7.7); Neutrophils % (A) 76 %; Non-African American GFR(MDRD) >60 (>60 ml/min/1.73 sqM); Potassium 3.9 mmol/L (3.5-5.1); RBC 2.98 m/uL (4.30-5.90); RDW 15.4 % (11.5-15.5); Sodium 139 mmol/L (137-145); WBC 2.3 k/uL (3.8-10.6); WBC (Perox) 2.44
[2017-02-07 11:36] LABS: Glucose,Whole Blood 132 mg/dL (75-99)
[2017-02-07 13:08] VITALS: BMI 53.1
--- NOTE | 2017-02-07 16:04 | PN ---
DATE OF SERVICE: 02/07/2017 This 66-year-old gentleman who was admitted with severe neutropenia, neutropenic sepsis, is being closely monitored. The patient is still complaining of tiredness and weakness. The white count is only 2.3. No chest pain. No palpitation. No fever. On exam, alert and oriented x3. Pulse 81, blood pressure 120/70, respiration 16, temperature 98.2, pulse ox 97% on room air. HEENT: Conjunctivae normal. NECK: No jugular venous distention. CARDIOVASCULAR SYSTEM: S1, S2 muffled. RESPIRATORY SYSTEM: Breath sounds diminished at the bases. A few scattered rhonchi. No crackles. ABDOMEN: Soft, obese, nontender. LEGS: Right leg cellulitis and erythema present. NERVOUS SYSTEM: No focal deficit. LABS: WBC 2.3, hemoglobin 9.1, platelets 73. ASSESSMENT: 1. Severe neutropenia as well as neutropenic sepsis, present on admission. 2. Severe pancytopenia, leukopenia, neutropenia and thrombocytopenia secondary to chemotherapy, present on admission. 3. Acute right lower lobe cellulitis. 4. History of chemotherapy for cutaneous B-cell lymphoma. 5. History of chronic persistent atrial fibrillation. 6. Diabetes mellitus, type 2. 7. On [place]. 8. Super morbid obesity. 9. History of degenerative joint disease. 10. History of benign prostatic hypertrophy. 11. History of coronary artery disease. 12. History of bilateral leg cellulitis and swelling. 13. History of asthma. 14. History of coronary artery disease, cardiac catheterization and stent 15. Hypertension. 16. Hyperlipidemia. 17. History of prostate disorder. 18. History of skin disorder. 19. History of head injury. 20. Previous history of 2.6 pulmonary nodule but no evidence of any abnormalities on recent chest x-ray. 21. FULL CODE. RECOMMENDATIONS AND DISCUSSION: I recommend to continue with the current medications, continue with the monitoring, symptomatic treatment. Closely follow with multiple consultants. Monitor WBC closely. Continue with antibiotics. Guarded prognosis. Further recommendations to follow.
[2017-02-07 17:17] LABS: Glucose,Whole Blood 137 mg/dL (75-99)
[2017-02-07 20:47] LABS: Glucose,Whole Blood 168 mg/dL (75-99)
--- NOTE | 2017-02-07 21:29 | P.PN ---
Subjective Principal diagnosis: Febrile illness, sepsis This is a 66-year-old male with a significant past history of cutaneous B-cell lymphoma with lesions on the left lower extremity and chronic edema and cellulitis to the bilateral lower extremities. He received PCHOP with Neulasta starting in August and completed on 12/22/2016. He was then hospitalized December 29 through January 05 at which time he was treated for MRSA infection and cellulitis to the right lower extremity and seen by Dr. Spears. He was on IV vancomycin which was discontinued at the time of his transfer due to trough of 34. He went to [facility] for [facility] and patient states he did very well there and gained strength and was discharged home. He was subsequently started on chemotherapy which he does not know the name. He states he has had some nausea and not able to drink fluids. He had a fall because his lower extremities gave out on him and he slowly let himself down to the floor. He did have abrasion to the left shoulder but no other injuries were noted. He came into [facility] emergency center for evaluation. Chest x-ray showed no acute findings. He was febrile with a temperature 103.3. Patient does not recall having a fever at home but his thought he probably did. White count 0.1 with repeated 0.2. Patient noted to have pancytopenia and hypokalemia. Influenza testing was negative for A and B. Urinalysis was cloudy, protein 1+, glucose trace, blood trace, bacteria moderate. Patient states he was able to eat his entire breakfast this morning and nausea is improved. He is taking in water. He states he scraped the lateral side of his right lower extremity while getting chemotherapy and there is a small amount of weeping at the site. The edema to his lower extremities is at his normal amount per patient. Fevers have now improved on current antibiotic therapy. Patient feeling slightly better. the right lower extremity swelling erythema is much improved. He has denying further chill or rigor. WBC 2.3 Strength improving able to ambulate to the restroom. Objective - Vital Signs Vital signs: Vital Signs Temp 97.7 F 02/07/17 15:00 Pulse 83 02/07/17 15:00 Resp 16 02/07/17 15:00 BP 151/79 02/07/17 15:00 Pulse Ox 100 02/07/17 15:00 Intake & Output 02/07/17 02/07/17 02/08/17 06:59 18:59 06:59 Intake Total 610 Output Total 850 401 Balance -240 -401 Weight 182.599 kg 182.599 kg Intake: IV 110 Cefepime 2 gm In Sodium 50 Chloride 0.9% 50 ml @ 100 mls/hr IVPB Q8HR [facility] Rx# :[id number] ns@10 60 Intake, IV Titration 500 Amount Vancomycin 2,500 mg In 500 Sodium Chloride 0.9% 500 ml @ 167 mls/hr IVPB Q16H [facility] Rx#:[id number] Output: Urine 850 400 Stool 1 Other: Voiding Method Bedside Commode Bedside Commode Urinal Urinal - Exam Gen: This is a 66-year-old morbidly obese male. He is sitting on a commode chair and appears to be in no acute distress. HEENT: Head is atraumatic, normocephalic. Large fatty tumor noted on the right occipital area, nontender. Pupils equal, round. Sclerae is anicteric. Conjunctiva pale. Mucous membranes of the mouth are moist. Lesion noted on the left side of his tongue. No thrush. NECK: Supple. No JVD. No lymphadenopathy. No thyromegaly. LUNGS: Clear to auscultation. No wheezes or rhonchi. No intercostal retractions. HEART: Regular rate and rhythm. No murmur. Tachycardic. ABDOMEN: Morbidly obese. Soft. Bowel sounds are present. No masses. No tenderness. EXTREMITIES: 3+ chronic edema to the lower extremities bilaterally with the ulceration of the right lower extremity lateral upper aspect of the calf improved NEUROLOGICAL: Patient is awake, alert and oriented x3. - Labs CBC & Chem 7: 02/07/17 07:23 02/07/17 07:23 Labs: Abnormal Lab Results - Last 24 Hours (Table) 02/07/17 02/07/17 02/07/17 Range/Units 07:08 07:23 07:23 WBC 2.3 L (3.8-10.6) k/uL RBC 2.98 L (4.30-5.90) m/uL Hgb 9.1 L (13.0-17.5) gm/dL Hct 29.0 L (39.0-53.0) % Plt Count 73 L (150-450) k/uL Lymphocytes # 0.3 L (1.0-4.8) k/uL Glucose 145 H (74-99) mg/dL POC Glucose (mg/dL) 146 H (75-99) mg/dL Calcium 8.1 L (8.4-10.2) mg/dL 02/07/17 02/07/17 02/07/17 Range/Units 11:33 17:14 20:18 WBC (3.8-10.6) k/uL RBC (4.30-5.90) m/uL Hgb (13.0-17.5) gm/dL Hct (39.0-53.0) % Plt Count (150-450) k/uL Lymphocytes # (1.0-4.8) k/uL Glucose (74-99) mg/dL POC Glucose (mg/dL) 132 H 137 H 168 H (75-99) mg/dL Calcium (8.4-10.2) mg/dL Laboratory Results WBC 2.3 k/uL (3.8-10.6) L 02/07/17 07:23 RBC 2.98 m/uL (4.30-5.90) L 02/07/17 07:23 Hgb 9.1 gm/dL (13.0-17.5) L 02/07/17 07:23 Hct 29.0 % (39.0-53.0) L 02/07/17 07:23 MCV 97.3 fL (80.0-100.0) 02/07/17 07:23 MCH 30.7 pg (25.0-35.0) 02/07/17 07:23 MCHC 31.6 g/dL (31.0-37.0) 02/07/17 07:23 RDW 15.4 % (11.5-15.5) 02/07/17 07:23 Plt Count 73 k/uL (150-450) L 02/07/17 07:23 Neutrophils % 76 % 02/07/17 07:23 Neutrophils % (Manual) 52.0 % 02/04/17 08:59 Band Neutrophils % 4.0 % 02/04/17 08:59 Lymphocytes % 15 % 02/07/17 07:23 Lymphocytes % (Manual) 20.0 % 02/04/17 08:59 Monocytes % 5 % 02/07/17 07:23 Monocytes % (Manual) 7.0 % 02/04/17 08:59 Eosinophils % 1 % 02/07/17 07:23 Eosinophils % (Manual) 17.0 % 02/04/17 08:59 Basophils % 1 % 02/07/17 07:23 Neutrophils # 1.7 k/uL (1.3-7.7) 02/07/17 07:23 Neutrophils # (Manual) 0.6 k/uL (1.3-7.7) L 02/04/17 08:59 Lymphocytes # 0.3 k/uL (1.0-4.8) L 02/07/17 07:23 Lymphocytes # (Manual) 0.2 k/uL (1.0-4.8) L 02/04/17 08:59 Monocytes # 0.1 k/uL (0-1.0) 02/07/17 07:23 Monocytes # (Manual) 0.1 k/uL (0-1.0) 02/04/17 08:59 Eosinophils # 0.0 k/uL (0-0.7) 02/07/17 07:23 Eosinophils # (Manual) 0.2 k/uL (0-0.7) 02/04/17 08:59 Basophils # 0.0 k/uL (0-0.2) 02/07/17 07:23 Nucleated RBCs 1 /100 WBC (0-0) H 02/04/17 08:59 Differential Comment 02/02/17 06:00 Manual Slide Review Performed 02/04/17 08:59 RBC Morphology Normal 02/01/17 17:35 Poikilocytosis (manual Present 02/02/17 06:00 Anisocytosis (manual) Present 02/02/17 06:00 Tear Drop Cells Present 02/02/17 06:00 PT 14.3 sec (9.0-12.0) H 02/01/17 18:04 INR 1.5 (<1.1) 02/01/17 18:04 APTT 28.3 sec (22.0-30.0) 02/01/17 18:04 Sodium 139 mmol/L (137-145) 02/07/17 07:23 Potassium 3.9 mmol/L (3.5-5.1) 02/07/17 07:23 Chloride 101 mmol/L (98-107) 02/07/17 07:23 Carbon Dioxide 30 mmol/L (22-30) 02/07/17 07:23 Anion Gap 8 mmol/L 02/07/17 07:23 BUN 12 mg/dL (9-20) 02/07/17 07:23 Creatinine 0.86 mg/dL (0.66-1.25) 02/07/17 07:23 Est GFR (MDRD) Af Amer >60 (>60 ml/min/1.73 sqM) 02/07/17 07:23 Est GFR (MDRD) Non-Af >60 (>60 ml/min/1.73 sqM) 02/07/17 07:23 Glucose 145 mg/dL (74-99) H 02/07/17 07:23 POC Glucose (mg/dL) 168 mg/dL (75-99) H 02/07/17 20:18 POC Glu Clinical Application Specialist ID Selena Tracey 02/07/17 20:[address] Glu mg/dL 143 mg/dL 02/02/17 06:00 Hemoglobin A1c 6.6 % (4.2-6.1) H 02/02/17 06:00 Plasma Lactic Acid [place] 1.1 mmol/L (0.7-2.0) 02/01/17 21:06 Calcium 8.1 mg/dL (8.4-10.2) L 02/07/17 07:23 Magnesium 1.8 mg/dL (1.6-2.3) 02/05/17 06:15 Total Bilirubin 1.5 mg/dL (0.2-1.3) H 02/01/17 17:35 AST 27 U/L (17-59) 02/01/17 17:35 ALT 31 U/L (21-72) 02/01/17 17:35 Alkaline Phosphatase 56 U/L (38-126) 02/01/17 17:35 Total Creatine Kinase 60 U/L (55-170) 02/01/17 17:35 CK-MB (CK-2) 0.6 ng/mL (0.0-2.4) 02/01/17 17:35 CK-MB (CK-2) Rel Index 1.0 02/01/17 17:35 Troponin I 0.093 ng/mL (0.000-0.034) H* 02/01/17 17:35 Total Protein 6.2 g/dL (6.3-8.2) L 02/01/17 17:35 Albumin 3.4 g/dL (3.5-5.0) L 02/01/17 17:35 Urine Color Yellow 03 17:35 Urine Appearance Cloudy (Clear) 02/01/17 17:35 Urine pH 5.5 (5.0-8.0) 02/01/17 17:35 Ur Specific [place] 1.011 (1.001-1.035) 02/01/17 17:35 Urine Protein 1+ (Negative) H 02/01/17 17:35 Urine Glucose (UA) Trace (Negative) H 02/01/17 17:35 Urine Ketones Negative (Negative) 02/01/17 17:35 Urine Blood Trace (Negative) H 02/01/17 17:35 Urine Nitrate Negative (Negative) 02/01/17 17:35 Urine Bilirubin Negative (Negative) 02/01/17 17:35 Urine Urobilinogen <2.0 mg/dL (<2.0) 02/01/17 17:35 Ur Leukocyte Esterase Negative (Negative) 02/01/17 17:35 Urine RBC 2 /hpf (0-5) 02/01/17 17:35 Urine WBC 3 /hpf (0-5) 02/01/17 17:35 Ur Squamous Epith Cells <1 /hpf (0-4) 02/01/17 17:35 Urine Bacteria Moderate /hpf (None) H 02/01/17 17:35 Granular Casts 4 /lpf (0) 02/01/17 17:35 Urine Mucus Rare /hpf (None) H 02/01/17 17:35 Vancomycin Trough 22.5 ug/mL 02/06/17 19:24 Influenza Type A RNA Not Detected (Not Detectd) 02/01/17 17:35 Influenza Type B (PCR) Not Detected (Not Detectd) 02/01/17 17:35 Microbiology 02/01/17 17:35 Blood Blood Culture - Final No Growth after 144 hours Assessment and Plan (1) Febrile illness, acute Narrative/Plan: 66-year-old male who has a history of cutaneous B-cell lymphoma who developed increasing difficulty with his left leg. Recently completed his course of chemotherapy. He received some Neulasta. Presents with difficulty with fever and neutropenia. Improving with current antibiotic therapy. Does have some ulcerations the right lateral aspect of his leg. Local wound care as requested. Elevate the limb as he can. Cultures are negative so far. Neutropenia persists and is being followed by hematology oncology. White blood cell count has Has remained 2.3 today.Possibly nupogen tomorrow He is feeling just a little better but certainly not at his baseline. Would expect that his white count will continue to improve and hopefully 48 hours he will be elevated and he'll have further improvement of how he is feeling. The cultures are negative and are monitored. If improved WBC and ready for ECF will complete 10 days Levaquin Status: Acute (2) Leukopenia Status: Acute
[2017-02-07] MEDS: ASPIRIN 81 MG CHEW PO SCH (21:30)
[2017-02-07] MEDS: FINASTERIDE 5 MG TAB PO SCH (21:30)
[2017-02-07] MEDS: ATORVASTATIN 10 MG TAB PO SCH (21:30)
[2017-02-08] MEDS: CEFEPIME 2 GM in SODIUM CHLORIDE 0.9% 50 ML IVPB SCH ×2 (01:32→09:33)
[2017-02-08 07:09] LABS: Glucose,Whole Blood 130 mg/dL (75-99)
[2017-02-08 07:47] VITALS: BP 122/68; PULSE 82; RESP 16; TEMP 98
[2017-02-08 08:24] LABS: Basophils % (A) 0 %; CH 31.2; CHCM 32.5; Eosinophils % (A) 0 %; HDW 3.36; HGB 9.1 gm/dL (13.0-17.5); Luc % (Auto) 4; Lymphocytes # (A) 0.4 k/uL (1.0-4.8); Lymphocytes % (A) 14 %; MCH 31.4 pg (25.0-35.0); MCHC 32.6 g/dL (31.0-37.0); MCV 96.5 fL (80.0-100.0); Mean Platelet Volume 8.7; Monocytes # (A) 0.2 k/uL (0-1.0); Monocytes % (A) 5 %; Neutrophils # (A) 2.1 k/uL (1.3-7.7); Neutrophils % (A) 76 %; RBC 2.91 m/uL (4.30-5.90); RDW 15.6 % (11.5-15.5); WBC 2.8 k/uL (3.8-10.6); WBC (Perox) 2.86
[2017-02-08] MEDS: INSULIN LISPRO (humaLOG) 300 UNIT/3 ML VIAL SQ SCH ×2 (08:26→12:04)
[2017-02-08 08:34] LABS: Anion Gap 7 mmol/L; Blood Urea Nitrogen 13 mg/dL (9-20); Calcium 8.1 mg/dL (8.4-10.2); Carbon Dioxide 30 mmol/L (22-30); Chloride 100 mmol/L (98-107); Glucose 130 mg/dL (74-99); Non-African American GFR(MDRD) >60 (>60 ml/min/1.73 sqM); Potassium 3.8 mmol/L (3.5-5.1); Sodium 137 mmol/L (137-145)
[2017-02-08] MEDS: EDOXABAN TOSYLATE 60 MG TABLET PO SCH (09:33)
[2017-02-08] MEDS: FLUTICASONE 50MCG/SPRAY NASAL 16GM EA NOSTRIL SCH (09:33)
[2017-02-08] MEDS: METOPROLOL TARTRATE 25 MG TAB PO SCH (09:34)
[2017-02-08] MEDS: LISINOPRIL 20 MG TAB PO SCH (09:34)
[2017-02-08] MEDS: NYSTATIN 100,000 UNIT/ML SUSP 500,000 UNIT/5 ML CUP PO SCH ×2 (09:34→12:07)
[2017-02-08] MEDS: POTASSIUM CHLORIDE ER 20 MEQ TAB.ER PO SCH (09:35)
[2017-02-08] MEDS: PANTOPRAZOLE 40 MG TABLET PO SCH (09:35)
[2017-02-08] MEDS: OXYBUTYNIN 10 MG TAB.ER.24 PO SCH (09:35)
[2017-02-08 11:41] LABS: Glucose,Whole Blood 164 mg/dL (75-99)
[2017-02-08] MEDS: VANCOMYCIN 2,500 MG in SODIUM CHLORIDE 0.9% 500 ML IVPB SCH (12:07)
--- NOTE | 2017-02-08 12:50 | DS ---
DATE OF ADMISSION: 02/01/2017 DATE OF DISCHARGE: FINAL DIAGNOSES: 1. Severe neutropenia as well as neutropenic sepsis, present on admission. 2. Severe pancytopenia, leukopenia, neutropenia and thrombocytopenia secondary to chemotherapy present n admission. 3. Acute right lower lobe cellulitis. 4. History of chemotherapy for cutaneous B-cell lymphoma. 5. History of chronic persistent atrial fibrillation. 6. Diabetes mellitus type 2. 7. On Savaysa. 8. Super morbid obesity. 9. History of degenerative joint disease. 10. History of benign prostatic hypertrophy. 11. History of coronary artery disease. 12. History of bilateral leg cellulitis and swelling. 13. History of asthma. 14. History of coronary artery disease, cardiac catheterization and stent. 15. Hypertension. 16. Hyperlipidemia. 17. History of prostate disorder. 18. History of skin disorder. 19. History of head injury. 20. Previous history of 2.6 pulmonary nodule with no evidence of any abnormalities in the recent chest x-ray. 21. FULL CODE. DISCHARGE DISPOSITION: The patient will be discharged in stable condition with guarded prognosis. Total time taken is 35 minutes. HISTORY OF PRESENT ILLNESS: This 66-year-old gentleman with a past medical history of multiple medical problems admitted with neutropenia, neutropenic sepsis, due to IV antibiotics. Patient improved significantly. Patient also had cellulitis also. Dr. Vazquez saw the patient, cultures are negative so far and oncology also saw the patient. White count pan to 2.8, hemoglobin is 9.1. Currently on exam, vitals are stable. CARDIOVASCULAR SYSTEM: S1, S2 muffled. RESPIRATORY: Breath sound diminished at the bases. ABDOMEN: Soft. EXTREMITIES: Leg cellulitis present. DISCHARGE ADVICE: 1. Diet is cardiac. 2. Activity limited until followup. 3. Follow up with Dr. Hicks in one week after [facility]. 4. Follow up with Dr. Mercer in the [facility]. 5. Follow up with Dr. Haddad and Dr. Vazquez as recommended. MEDICATIONS: 1. Ventolin 2.5 q.4 p.r.n. 2. Aspirin 81 mg p.o. daily. 3. Savaysa 60 mg p.o. daily. 4. Finasteride 5 mg p.o. q.h.s. 5. Flonase one spray each nostril. 6. Frost 5 mg q.6 p.r.n. 7. Humalog scale 150 to 200 = 2 units; 201 to 250 = 4 units; 251 to 300 = 6 units/ 301 to 350 = 8 units; 351 to 400 = 10 units, more than 400 call. 8. Levaquin 500 mg p.o. daily for 10 days. 9. Local dressing and wound care per Infectious Disease to be continued. 10. Lopressor 25 mg p.o. t.i.d. 11. Nitrostat 0.4 sublingual p.r.n. 12. Nystatin 5 mL p.o. q.i.d. 13. Zofran 4 mg q.6 p.r.n. 14. Ditropan XL 10 mg p.o. daily. 15. Protonix 40 mg p.o. daily. 16. K-Dur 20 mEq p.o. daily. 17. Simvastatin 20 mg p.o. q.h.s. Once again, the patient will be discharged in a stable condition with guarded prognosis.
--- NOTE | 2017-02-08 19:22 | P.PN ---
Subjective Principal diagnosis: Febrile illness, sepsis This is a 66-year-old male with a significant past history of cutaneous B-cell lymphoma with lesions on the left lower extremity and chronic edema and cellulitis to the bilateral lower extremities. He received PCHOP with Neulasta starting in August and completed on 12/22/2016. He was then hospitalized December 29 through January 05 at which time he was treated for MRSA infection and cellulitis to the right lower extremity and seen by Dr. Spears. He was on IV vancomycin which was discontinued at the time of his transfer due to trough of 34. He went to [facility] for rehabilitation and patient states he did very well there and gained strength and was discharged home. He was subsequently started on chemotherapy which he does not know the name. He states he has had some nausea and not able to drink fluids. He had a fall because his lower extremities gave out on him and he slowly let himself down to the floor. He did have abrasion to the left shoulder but no other injuries were noted. He came into [facility] emergency center for evaluation. Chest x-ray showed no acute findings. He was febrile with a temperature 103.3. Patient does not recall having a fever at home but his thought he probably did. White count 0.1 with repeated 0.2. Patient noted to have pancytopenia and hypokalemia. Influenza testing was negative for A and B. Urinalysis was cloudy, protein 1+, glucose trace, blood trace, bacteria moderate. Patient states he was able to eat his entire breakfast this morning and nausea is improved. He is taking in water. He states he scraped the lateral side of his right lower extremity while getting chemotherapy and there is a small amount of weeping at the site. The edema to his lower extremities is at his normal amount per patient. Fevers have now improved on current antibiotic therapy. Patient feeling slightly better. the right lower extremity swelling erythema is much improved. He has denying further chill or rigor. WBC 2.8 Strength improving able to ambulate to the restroom. Is looking forward going to rehab today Objective - Vital Signs Vital signs: Vital Signs Temp 98.0 F 02/08/17 07:00 Pulse 82 02/08/17 07:00 Resp 16 02/08/17 07:00 BP 122/68 02/08/17 07:00 Pulse Ox 99 02/08/17 07:00 Intake & Output 02/08/17 02/08/17 02/09/17 06:59 18:59 06:59 Intake Total 620 550 Output Total 850 Balance -230 550 Weight 186.5 kg Intake: IV 620 550 Cefepime 2 gm In Sodium 50 50 Chloride 0.9% 50 ml @ 100 mls/hr IVPB Q8HR [facility]ASB[facility] Rx# :[id number] Vancomycin 2,500 mg In 500 500 Sodium Chloride 0.9% 500 ml @ 167 mls/hr IVPB Q16H JAS[facility]IR Rx#:[id number] ns@10 70 Output: Urine 850 Other: Voiding Method Bedside Commode Bedside Commode Urinal Urinal - Exam Gen: This is a 66-year-old morbidly obese male. He is sitting on a commode chair and appears to be in no acute distress. HEENT: Head is atraumatic, normocephalic. Large fatty tumor noted on the right occipital area, nontender. Pupils equal, round. Sclerae is anicteric. Conjunctiva pale. Mucous membranes of the mouth are moist. Lesion noted on the left side of his tongue. No thrush. NECK: Supple. No JVD. No lymphadenopathy. No thyromegaly. LUNGS: Clear to auscultation. No wheezes or rhonchi. No intercostal retractions. HEART: Regular rate and rhythm. No murmur. Tachycardic. ABDOMEN: Morbidly obese. Soft. Bowel sounds are present. No masses. No tenderness. EXTREMITIES: 3+ chronic edema to the lower extremities bilaterally with the ulceration of the right lower extremity lateral upper aspect of the calf improved NEUROLOGICAL: Patient is awake, alert and oriented x3. - Labs CBC & Chem 7: 02/08/17 07:35 02/08/17 07:35 Labs: Abnormal Lab Results - Last 24 Hours (Table) 02/07/17 02/08/17 02/08/17 Range/Units 20:18 07:06 07:35 WBC 2.8 L (3.8-10.6) k/uL RBC 2.91 L (4.30-5.90) m/uL Hgb 9.1 L (13.0-17.5) gm/dL Hct 28.0 L (39.0-53.0) % RDW 15.6 H (11.5-15.5) % Plt Count 93 L (150-450) k/uL Lymphocytes # 0.4 L (1.0-4.8) k/uL Glucose (74-99) mg/dL POC Glucose (mg/dL) 168 H 130 H (75-99) mg/dL Calcium (8.4-10.2) mg/dL 02/08/17 02/08/17 Range/Units 07:35 11:38 WBC (3.8-10.6) k/uL RBC (4.30-5.90) m/uL Hgb (13.0-17.5) gm/dL Hct (39.0-53.0) % RDW (11.5-15.5) % Plt Count (150-450) k/uL Lymphocytes # (1.0-4.8) k/uL Glucose 130 H (74-99) mg/dL POC Glucose (mg/dL) 164 H (75-99) mg/dL Calcium 8.1 L (8.4-10.2) mg/dL Laboratory Results WBC 2.8 k/uL (3.8-10.6) L 02/08/17 07:35 RBC 2.91 m/uL (4.30-5.90) L 02/08/17 07:35 Hgb 9.1 gm/dL (13.0-17.5) L 02/08/17 07:35 Hct 28.0 % (39.0-53.0) L 02/08/17 07:35 MCV 96.5 fL (80.0-100.0) 02/08/17 07:35 MCH 31.4 pg (25.0-35.0) 02/08/17 07:35 MCHC 32.6 g/dL (31.0-37.0) 02/08/17 07:35 RDW 15.6 % (11.5-15.5) H 02/08/17 07:35 Plt Count 93 k/uL (150-450) L 02/08/17 07:35 Neutrophils % 76 % 02/08/17 07:35 Neutrophils % (Manual) 52.0 % 02/04/17 08:59 Band Neutrophils % 4.0 % 02/04/17 08:59 Lymphocytes % 14 % 02/08/17 07:35 Lymphocytes % (Manual) 20.0 % 02/04/17 08:59 Monocytes % 5 % 02/08/17 07:35 Monocytes % (Manual) 7.0 % 02/04/17 08:59 Eosinophils % 0 % 02/08/17 07:35 Eosinophils % (Manual) 17.0 % 02/04/17 08:59 Basophils % 0 % 02/08/17 07:35 Neutrophils # 2.1 k/uL (1.3-7.7) 02/08/17 07:35 Neutrophils # (Manual) 0.6 k/uL (1.3-7.7) L 02/04/17 08:59 Lymphocytes # 0.4 k/uL (1.0-4.8) L 02/08/17 07:35 Lymphocytes # (Manual) 0.2 k/uL (1.0-4.8) L 02/04/17 08:59 Monocytes # 0.2 k/uL (0-1.0) 02/08/17 07:35 Monocytes # (Manual) 0.1 k/uL (0-1.0) 02/04/17 08:59 Eosinophils # 0.0 k/uL (0-0.7) 02/08/17 07:35 Eosinophils # (Manual) 0.2 k/uL (0-0.7) 02/04/17 08:59 Basophils # 0.0 k/uL (0-0.2) 02/08/17 07:35 Nucleated RBCs 1 /100 WBC (0-0) H 02/04/17 08:59 Differential Comment 02/02/17 06:00 Manual Slide Review Performed 02/04/17 08:59 RBC Morphology Normal 02/01/17 17:35 Poikilocytosis (manual Present 02/02/17 06:00 Anisocytosis (manual) Present 02/02/17 06:00 Tear Drop Cells Present 02/02/17 06:00 PT 14.3 sec (9.0-12.0) H 02/01/17 18:04 INR 1.5 (<1.1) 02/01/17 18:04 APTT 28.3 sec (22.0-30.0) 02/01/17 18:04 Sodium 137 mmol/L (137-145) 02/08/17 07:35 Potassium 3.8 mmol/L (3.5-5.1) 02/08/17 07:35 Chloride 100 mmol/L (98-107) 02/08/17 07:35 Carbon Dioxide 30 mmol/L (22-30) 02/08/17 07:35 Anion Gap 7 mmol/L 02/08/17 07:35 BUN 13 mg/dL (9-20) 02/08/17 07:35 Creatinine 0.78 mg/dL (0.66-1.25) 02/08/17 07:35 Est GFR (MDRD) Af Amer >60 (>60 ml/min/1.73 sqM) 02/08/17 07:35 Est GFR (MDRD) Non-Af >60 (>60 ml/min/1.73 sqM) 02/08/17 07:35 Glucose 130 mg/dL (74-99) H 02/08/17 07:35 POC Glucose (mg/dL) 164 mg/dL (75-99) H 02/08/17 11:38 POC Glu Tool Room Gear Machine Operator ID Amalia Tenorio M 02/08/17 11:[address] Glu mg/dL 143 mg/dL 02/02/17 06:00 Hemoglobin A1c 6.6 % (4.2-6.1) H 02/02/17 06:00 Plasma Lactic Acid Walter 1.1 mmol/L (0.7-2.0) 02/01/17 21:06 Calcium 8.1 mg/dL (8.4-10.2) L 02/08/17 07:35 Magnesium 1.8 mg/dL (1.6-2.3) 02/05/17 06:15 Total Bilirubin 1.5 mg/dL (0.2-1.3) H 02/01/17 17:35 AST 27 U/L (17-59) 02/01/17 17:35 ALT 31 U/L (21-72) 02/01/17 17:35 Alkaline Phosphatase 56 U/L (38-126) 02/01/17 17:35 Total Creatine Kinase 60 U/L (55-170) 02/01/17 17:35 CK-MB (CK-2) 0.6 ng/mL (0.0-2.4) 02/01/17 17:35 CK-MB (CK-2) Rel Index 1.0 02/01/17 17:35 Troponin I 0.093 ng/mL (0.000-0.034) H* 02/01/17 17:35 Total Protein 6.2 g/dL (6.3-8.2) L 02/01/17 17:35 Albumin 3.4 g/dL (3.5-5.0) L 03 17:35 Urine Color Yellow 03 17:35 Urine Appearance Cloudy (Clear) 02/01/17 17:35 Urine pH 5.5 (5.0-8.0) 02/01/17 17:35 Ur Specific [place] 1.011 (1.001-1.035) 02/01/17 17:35 Urine Protein 1+ (Negative) H 02/01/17 17:35 Urine Glucose (UA) Trace (Negative) H 02/01/17 17:35 Urine Ketones Negative (Negative) 02/01/17 17:35 Urine Blood Trace (Negative) H 02/01/17 17:35 Urine Nitrate Negative (Negative) 02/01/17 17:35 Urine Bilirubin Negative (Negative) 02/01/17 17:35 Urine Urobilinogen <2.0 mg/dL (<2.0) 02/01/17 17:35 Ur Leukocyte Esterase Negative (Negative) 02/01/17 17:35 Urine RBC 2 /hpf (0-5) 02/01/17 17:35 Urine WBC 3 /hpf (0-5) 03 17:35 Ur Squamous Epith Cells <1 /hpf (0-4) 02/01/17 17:35 Urine Bacteria Moderate /hpf (None) H 02/01/17 17:35 Granular Casts 4 /lpf (0) 02/01/17 17:35 Urine Mucus Rare /hpf (None) H 02/01/17 17:35 Vancomycin Trough 22.5 ug/mL 02/06/17 19:24 Influenza Type A RNA Not Detected (Not Detectd) 02/01/17 17:35 Influenza Type B (PCR) Not Detected (Not Detectd) 02/01/17 17:35 Laboratory Results WBC 2.8 k/uL (3.8-10.6) L 02/08/17 07:35 RBC 2.91 m/uL (4.30-5.90) L 02/08/17 07:35 Hgb 9.1 gm/dL (13.0-17.5) L 02/08/17 07:35 Hct 28.0 % (39.0-53.0) L 02/08/17 07:35 MCV 96.5 fL (80.0-100.0) 02/08/17 07:35 MCH 31.4 pg (25.0-35.0) 02/08/17 07:35 MCHC 32.6 g/dL (31.0-37.0) 02/08/17 07:35 RDW 15.6 % (11.5-15.5) H 02/08/17 07:35 Plt Count 93 k/uL (150-450) L 02/08/17 07:35 Neutrophils % 76 % 02/08/17 07:35 Neutrophils % (Manual) 52.0 % 02/04/17 08:59 Band Neutrophils % 4.0 % 02/04/17 08:59 Lymphocytes % 14 % 02/08/17 07:35 Lymphocytes % (Manual) 20.0 % 02/04/17 08:59 Monocytes % 5 % 02/08/17 07:35 Monocytes % (Manual) 7.0 % 02/04/17 08:59 Eosinophils % 0 % 02/08/17 07:35 Eosinophils % (Manual) 17.0 % 02/04/17 08:59 Basophils % 0 % 02/08/17 07:35 Neutrophils # 2.1 k/uL (1.3-7.7) 02/08/17 07:35 Neutrophils # (Manual) 0.6 k/uL (1.3-7.7) L 02/04/17 08:59 Lymphocytes # 0.4 k/uL (1.0-4.8) L 02/08/17 07:35 Lymphocytes # (Manual) 0.2 k/uL (1.0-4.8) L 02/04/17 08:59 Monocytes # 0.2 k/uL (0-1.0) 02/08/17 07:35 Monocytes # (Manual) 0.1 k/uL (0-1.0) 02/04/17 08:59 Eosinophils # 0.0 k/uL (0-0.7) 02/08/17 07:35 Eosinophils # (Manual) 0.2 k/uL (0-0.7) 02/04/17 08:59 Basophils # 0.0 k/uL (0-0.2) 02/08/17 07:35 Nucleated RBCs 1 /100 WBC (0-0) H 02/04/17 08:59 Differential Comment 02/02/17 06:00 Manual Slide Review Performed 02/04/17 08:59 RBC Morphology Normal 02/01/17 17:35 Poikilocytosis (manual Present 02/02/17 06:00 Anisocytosis (manual) Present 02/02/17 06:00 Tear Drop Cells Present 02/02/17 06:00 PT 14.3 sec (9.0-12.0) H 02/01/17 18:04 INR 1.5 (<1.1) 02/01/17 18:04 APTT 28.3 sec (22.0-30.0) 02/01/17 18:04 Sodium 137 mmol/L (137-145) 02/08/17 07:35 Potassium 3.8 mmol/L (3.5-5.1) 02/08/17 07:35 Chloride 100 mmol/L (98-107) 02/08/17 07:35 Carbon Dioxide 30 mmol/L (22-30) 02/08/17 07:35 Anion Gap 7 mmol/L 02/08/17 07:35 BUN 13 mg/dL (9-20) 02/08/17 07:35 Creatinine 0.78 mg/dL (0.66-1.25) 02/08/17 07:35 Est GFR (MDRD) Af Amer >60 (>60 ml/min/1.73 sqM) 02/08/17 07:35 Est GFR (MDRD) Non-Af >60 (>60 ml/min/1.73 sqM) 02/08/17 07:35 Glucose 130 mg/dL (74-99) H 02/08/17 07:35 POC Glucose (mg/dL) 164 mg/dL (75-99) H 02/08/17 11:38 POC Glu Tool Room Gear Machine Operator ID Amalia Tenorio M 02/08/17 11:[address] Glu mg/dL 143 mg/dL 02/02/17 06:00 Hemoglobin A1c 6.6 % (4.2-6.1) H 02/02/17 06:00 Plasma Lactic Acid Walter 1.1 mmol/L (0.7-2.0) 02/01/17 21:06 Calcium 8.1 mg/dL (8.4-10.2) L 02/08/17 07:35 Magnesium 1.8 mg/dL (1.6-2.3) 02/05/17 06:15 Total Bilirubin 1.5 mg/dL (0.2-1.3) H 02/01/17 17:35 AST 27 U/L (17-59) 02/01/17 17:35 ALT 31 U/L (21-72) 02/01/17 17:35 Alkaline Phosphatase 56 U/L (38-126) 02/01/17 17:35 Total Creatine Kinase 60 U/L (55-170) 02/01/17 17:35 CK-MB (CK-2) 0.6 ng/mL (0.0-2.4) 02/01/17 17:35 CK-MB (CK-2) Rel Index 1.0 02/01/17 17:35 Troponin I 0.093 ng/mL (0.000-0.034) H* 02/01/17 17:35 Total Protein 6.2 g/dL (6.3-8.2) L 02/01/17 17:35 Albumin 3.4 g/dL (3.5-5.0) L 02/01/17 17:35 Urine Color Yellow 02/01/17 17:35 Urine Appearance Cloudy (Clear) 02/01/17 17:35 Urine pH 5.5 (5.0-8.0) 02/01/17 17:35 Ur Specific [place] 1.011 (1.001-1.035) 02/01/17 17:35 Urine Protein 1+ (Negative) H 02/01/17 17:35 Urine Glucose (UA) Trace (Negative) H 02/01/17 17:35 Urine Ketones Negative (Negative) 02/01/17 17:35 Urine Blood Trace (Negative) H 02/01/17 17:35 Urine Nitrate Negative (Negative) 02/01/17 17:35 Urine Bilirubin Negative (Negative) 02/01/17 17:35 Urine Urobilinogen <2.0 mg/dL (<2.0) 02/01/17 17:35 Ur Leukocyte Esterase Negative (Negative) 02/01/17 17:35 Urine RBC 2 /hpf (0-5) 02/01/17 17:35 Urine WBC 3 /hpf (0-5) 02/01/17 17:35 Ur Squamous Epith Cells <1 /hpf (0-4) 02/01/17 17:35 Urine Bacteria Moderate /hpf (None) H 02/01/17 17:35 Granular Casts 4 /lpf (0) 02/01/17 17:35 Urine Mucus Rare /hpf (None) H 02/01/17 17:35 Vancomycin Trough 22.5 ug/mL 02/06/17 19:24 Influenza Type A RNA Not Detected (Not Detectd) 02/01/17 17:35 Influenza Type B (PCR) Not Detected (Not Detectd) 02/01/17 17:35 Microbiology 02/01/17 17:35 Blood Blood Culture - Final No Growth after 144 hours Assessment and Plan (1) Febrile illness, acute Narrative/Plan: 66-year-old male who has a history of cutaneous B-cell lymphoma who developed increasing difficulty with his left leg. Recently completed his course of chemotherapy. He received some Neulasta. Presents with difficulty with fever and neutropenia. Improving with current antibiotic therapy. Does have some ulcerations the right lateral aspect of his leg. Local wound care as requested. Elevate the limb as he can. Cultures are negative so far. Neutropenia persists and is being followed by hematology oncology. White blood cell count has Has remained 2.3 today.Possibly nupogen tomorrow He is feeling just a little better but certainly not at his baseline. Would expect that his white count will continue to improve and hopefully 48 hours he will be elevated and he'll have further improvement of how he is feeling. The cultures are negative and are monitored. With improved WBC is ready for ECF will complete 10 days Levaquin Status: Acute (2) Leukopenia Status: Acute
== END 2017-02-08 15:55 | DRG 871 ==
LOC: EC 17:22 → 6SEL 19:42 → 5ONC 02-06 20:13
PROVIDERS: ADMIT Internal Medicine; ATTEND Internal Medicine
DX: A41.9 Sepsis, unspecified organism (principal); D61.810 Antineoplastic chemotherapy induced pancytopenia; E87.2 Acidosis; C83.30 Diffuse large B-cell lymphoma, unspecified site; D69.59 Other secondary thrombocytopenia; I48.1 Persistent atrial fibrillation; I48.2 Chronic atrial fibrillation; E86.0 Dehydration; I10 Essential (primary) hypertension; L03.115 Cellulitis of right lower limb; L03.116 Cellulitis of left lower limb; E66.01 Morbid (severe) obesity due to excess calories; E11.9 Type 2 diabetes mellitus without complications; E78.5 Hyperlipidemia, unspecified; E87.6 Hypokalemia; F40.240 Claustrophobia; I25.10 Atherosclerotic heart disease of native coronary artery without angina pectoris; I87.8 Other specified disorders of veins; I89.0 Lymphedema, not elsewhere classified; J44.9 Chronic obstructive pulmonary disease, unspecified; J45.909 Unspecified asthma, uncomplicated; M19.90 Unspecified osteoarthritis, unspecified site; N40.0 Benign prostatic hyperplasia without lower urinary tract symptoms; S40.212A Abrasion of left shoulder, initial encounter; T45.1X5A Adverse effect of antineoplastic and immunosuppressive drugs, initial encounter; Z77.090 Contact with and (suspected) exposure to asbestos; W19.XXXA Unspecified fall, initial encounter; Y92.009 Unspecified place in unspecified non-institutional (private) residence as the place of occurrence of the external cause; Z79.82 Long term (current) use of aspirin; Z79.899 Other long term (current) drug therapy; Z82.49 Family history of ischemic heart disease and other diseases of the circulatory system; Z85.46 Personal history of malignant neoplasm of prostate; Z86.14 Personal history of Methicillin resistant Staphylococcus aureus infection; Z86.74 Personal history of sudden cardiac arrest; Z95.5 Presence of coronary angioplasty implant and graft; Z79.4 Long term (current) use of insulin
CPT/HCPCS: 36415; 71020; 80048; 80053; 80202; 81001; 82550; 82553; 83036; 83605; 83735; 84132; 84484; 85025; 85027; 85610; 85730; 87040; 87502; 93005; 94640; 94760; 96360; 96361; 99291

== ENCOUNTER → 2017-03-06 | Outpatient (CLI) | payer BC ==
[2017-03-06 10:35] LABS: Blood Urea Nitrogen 15 mg/dL (9-20); Non-African American GFR(MDRD) >60 (>60 ml/min/1.73 sqM)
--- NOTE | 2017-03-06 13:43 | CT ---
EXAMINATION TYPE: CT ChestAbdPelvis w con DATE OF EXAM: 03/06/2017 12:04 PM INDICATION: Follow up lymphoma COMPARISON: CTA chest 12/29/2016 CT DLP: 3659.7 mGycm CONTRAST: Performed with Oral Contrast and with IV Contrast, patient injected with 100 mL of Omnipaque 300. TECHNIQUE: Axial images at 5 mm thick sections. Reconstructed images in the coronal plane. Delayed images through the kidneys. FINDINGS: CT CHEST: The thyroid is poorly visualized. No suspicious lung nodules or focal infiltrates are present. There is a 0.2 cm nodule in the posterior right upper lobe. Series 4 image 25. The ascending aorta diameter at the level of the main pulmonary artery is 4.0 cm. The main pulmonary artery diameter at the bifurcation is 3.2 cm. No suspicious axillary adenopathy is evident. Coronary artery calcification is noted. CT ABDOMEN: Liver: Normal Spleen: Normal Pancreas: Atrophic Adrenal glands: The adrenal glands are normal. Gallbladder: Multiple gallstones are present. Kidneys: No masses are evident. No hydronephrosis is present. No cysts are present. Delayed images were obtained through the kidneys, which remain unremarkable. Aorta: Vascular calcification is within the aorta. Inferior vena cava: Normal. No periaortic or retrocaval adenopathy is evident. No mesenteric adenopathy is evident. CT PELVIS: Loops of bowel within the abdomen and pelvis are normal. There are loops of bowel which are incom pletely distended or lack oral contrast limiting their evaluation. Appendix: Normal as visualized. Urinary bladder: Normal. Genitourinary structures: Prostate is limited evaluation due to beam hardening artifact from left hip prosthesis. Osseous structures: No suspicious lytic or sclerotic lesions. IMPRESSIONS: 1. No suspicious lymphadenopathy. 2. Cholelithiasis
== END | disposition home or self-care (01) ==
LOC: RADCTMAIN 09:32
PROVIDERS: ATTEND Internal Medicine Hematology & Oncology
DX: K80.20 Calculus of gallbladder without cholecystitis without obstruction (principal); C85.99 Non-Hodgkin lymphoma, unspecified, extranodal and solid organ sites
CPT/HCPCS: 82565; 84520; 71260; 74177; 36415; Q9967

== ENCOUNTER → 2017-06-16 | Outpatient (CLI) | payer BC ==
[2017-06-16 13:31] LABS: Blood Urea Nitrogen 22 mg/dL (9-20); Non-African American GFR(MDRD) >60 (>60 ml/min/1.73 sqM)
--- NOTE | 2017-06-16 14:40 | CT ---
EXAMINATION TYPE: CT ChestAbdPelvis w con DATE OF EXAM: 06/16/2017 COMPARISON: 03/06/2017 HISTORY: Lymphoma CT DLP: 3008.10 mGycm CONTRAST: CT scan of the chest, abdomen and pelvis is performed with Oral Contrast and with IV Contrast, patien t injected with 100 ml mL of Omnipaque 300. CT Chest: LUNGS: The lungs are clear and free of infiltrate or atelectasis. No pulmonary nodule or mass is det ected. No pleural effusion or CT evidence of interstitial lung disease. MEDIASTINUM: Thoracic aorta is of normal caliber. The heart is not enlarged. No evidence for media stinal mass or adenopathy. HILAR STRUCTURES: No evidence for mass. No hilar adenopathy is appreciated. OTHER: No significant abnormality. CONTRAST CT ABDOMEN AND PELVIS FINDINGS: LIVER/GB: Multiple gallstones again noted. No space occupying hepatic lesion. Biliary tree is of norm al caliber. PANCREAS: No inflammation. No distinct mass. SPLEEN: No splenic enlargement. No lesion seen. ADRENALS: No nodule. No thickening. KIDNEYS/BLADDER: No hydronephrosis. No nephrolithiasis. No disctinct renal mass. BOWEL: Normal appendix. Normal bowel caliber. No inflammation. GENITAL ORGANS: No gross abnormality. LYMPH NODES: No greater than 1cm abdominal or pelvic lymph nodes are appreciated. AORTA: No significant abnormality. OSSEOUS STRUCTURES: No significant abnormality is seen. OTHER: No significant additional abnormality is seen. IMPRESSION: 1. No evidence for adenopathy within the chest abdomen or pelvis.
== END | disposition home or self-care (01) ==
LOC: RADCTMAIN 12:53
PROVIDERS: ATTEND Radiology Diagnostic Radiology
DX: C85.99 Non-Hodgkin lymphoma, unspecified, extranodal and solid organ sites (principal); Z88.0 Allergy status to penicillin
CPT/HCPCS: 82565; 84520; 71260; 74177; 36415; Q9967

== ENCOUNTER → 2018-04-27 | Outpatient (CLI) | payer BC ==
--- NOTE | 2018-04-27 14:20 | CT ---
EXAMINATION TYPE: CT ChestAbdPelvis w con DATE OF EXAM: 04/27/2018 COMPARISON: NONE HISTORY: Lymphoma follow up CT DLP: 3114.6 mGycm. Automated Exposure Control for Dose Reduction was Utilized. CONTRAST: CT scan of the thorax, abdomen and pelvis is performed with IV Contrast, patient injected with 100 mL of Isovue 300. FINDINGS: LUNGS: There is Cuffing within the left lower lobe and to a lesser degree within the right lower lobe. Tree-in-bud op acity is also seen within the left lower lobe on series 4 images 49 through 52. A new left upper lobe bilobed pulmonary nodule is seen that given the above findings could be inflammatory or, infectious or neoplastic. This is seen on series 4 image 30 and measures 1.4 cm in length. The lungs are grossly clear, there is no concerning parenchymal mass or nodule identified. There is no pleural effusion or pneumothorax seen. The tracheobronchial tree is patent. MEDIASTINUM: There are no greater than 1 cm hilar or mediastinal lymph nodes. No pericardial effusi on is seen. Moderate three-vessel coronary artery calcifications are present. Right-sided Mediport t erminates in the superior right atrium. OTHER: No additional significant abnormality is seen. LIVER/GB: Hepatic parenchyma is diffusely hypoattenuated in comparison to that of the spleen, most co mmonly seen in hepatic steatosis. This finding limits evaluation for hepatic masses. No gross evidenc e of hepatic mass is seen. No intrahepatic biliary ductal dilatation. There is redemonstration of cho lelithiasis. PANCREAS: No significant abnormality is seen. Mild proximal atrophy is seen. SPLEEN: No significant abnormality is seen. No splenomegaly. ADRENALS: The adrenal glands are slightly thickened without focal nodule suggesting adrenal gland hyp erplasia. KIDNEYS: No significant abnormality is seen. BOWEL: Numerous colonic diverticula are present without pericolonic fat stranding. GENITAL ORGANS: No gross abnormality seen. LYMPH NODES: No greater than 1cm abdominal or pelvic lymph nodes are appreciated. OSSEOUS STRUCTURES: Left hip arthroplasty creates extensive spray artifact and limits evaluation of t he surrounding pelvis. Moderate multilevel degenerative changes of the thoracolumbar and lumbosacral spine are seen. OTHER: Moderate calcific atheromatous changes are seen of the abdominal aorta and its branches. There is diastases recti and a fat filled ventral hernia with a 1.5 cm neck. IMPRESSION: 1. New left upper lobe bilobed pulmonary nodule measuring 1.4 cm in length. Additionally there is new bilateral lower lobe peribronchial cuffing and left basilar reticular nodular opacity. Therefore the se findings in combination could infectious or inflammatory. Short-term follow-up CT is recommended i n 3 months to evaluate for resolution. 2. No adenopathy within the chest, abdomen, or pelvis to indicate disease recurrence. 3. Redemonstration of cholelithiasis and findings compatible with mild degree hepatic steatosis.
== END | disposition home or self-care (01) ==
LOC: RADPROMAIN 10:09
PROVIDERS: ATTEND Internal Medicine Hematology & Oncology
DX: C85.99 Non-Hodgkin lymphoma, unspecified, extranodal and solid organ sites (principal); K80.20 Calculus of gallbladder without cholecystitis without obstruction; R91.1 Solitary pulmonary nodule; R91.8 Other nonspecific abnormal finding of lung field
CPT/HCPCS: 82565; 84520; 71260; 74177; J1642; Q9967

== ENCOUNTER → 2018-07-27 | Outpatient (CLI) | payer BC ==
--- NOTE | 2018-07-27 13:00 | CT ---
EXAMINATION TYPE: CT ChestAbdPelvis w con DATE OF EXAM: 07/27/2018 COMPARISON: 04/27/2018 HISTORY: Follow up for known lymphoma CT DLP: 1944 mGycm CONTRAST: CT scan of the chest, abdomen and pelvis is performed with Oral Contrast and with IV Contrast, patien t injected with 100 mL of Isovue 300. CT Chest: LUNGS: The lungs are clear and free of infiltrate or atelectasis. No pulmonary nodule or mass is det ected. Previously noted left upper lobe pulmonary nodule is not reproduced at this time. No pleural effusion or CT evidence of interstitial lung disease. MEDIASTINUM: Thoracic aorta is of normal caliber. The heart is not enlarged. No evidence for media stinal mass or adenopathy. HILAR STRUCTURES: No evidence for mass. No hilar adenopathy is appreciated. OTHER: No significant abnormality. CONTRAST CT ABDOMEN AND PELVIS FINDINGS: LIVER/GB: There is evidence of cholelithiasis. No space occupying hepatic lesion. Biliary tree is of normal caliber. PANCREAS: No inflammation. No distinct mass. SPLEEN: No splenic enlargement. No lesion seen. ADRENALS: No nodule. No thickening. KIDNEYS/BLADDER: No hydronephrosis. No nephrolithiasis. No disctinct renal mass. BOWEL: Normal appendix. Normal bowel caliber. No inflammation. GENITAL ORGANS: No gross abnormality. LYMPH NODES: No greater than 1cm abdominal or pelvic lymph nodes are appreciated. AORTA: No significant abnormality. OSSEOUS STRUCTURES: No significant abnormality is seen. OTHER: No significant additional abnormality is seen. IMPRESSION: 1. Previously noted left upper lobe pulmonary nodule is not reproduced at this time. 2. No evidence for adenopathy within the chest abdomen or pelvis.
== END | disposition home or self-care (01) ==
LOC: RADPROMAIN 10:09
PROVIDERS: ATTEND Internal Medicine Hematology & Oncology
DX: C85.99 Non-Hodgkin lymphoma, unspecified, extranodal and solid organ sites (principal)
CPT/HCPCS: 82565; 84520; 71260; 74177; J1642; Q9967

== ENCOUNTER → 2018-09-10 | Outpatient (CLI) | payer BC ==
[2018-09-10 09:21] LABS: HCT 43.6 % (39.0-53.0); HGB 14.2 gm/dL (13.0-17.5); Hypochromasia Slight; MCHC 32.5 g/dL (31.0-37.0); MCV 95.2 fL (80.0-100.0); Mean Platelet Volume 7.8; Platelet Count 183 k/uL (150-450); RBC 4.58 m/uL (4.30-5.90); RDW 15.2 % (11.5-15.5); WBC 6.9 k/uL (3.8-10.6)
[2018-09-10 09:50] LABS: Albumin 4.1 g/dL (3.5-5.0); Calcium 9.3 mg/dL (8.4-10.2); Potassium 4.5 mmol/L (3.5-5.1); Total Bilirubin 1.5 mg/dL (0.2-1.3); Total Protein 7.7 g/dL (6.3-8.2)
--- NOTE | 2018-09-10 15:33 | XR ---
EXAMINATION TYPE: XR chest 2V DATE OF EXAM: 09/10/2018 COMPARISON: 02/01/2017 HISTORY: 68-year-old male shortness of breath TECHNIQUE: Frontal and lateral views FINDINGS: Right anterior chest wall injection port with catheter tip at the lower SVC. Heart borderline in size . There is some peribronchial cuffing noted. No vasquez consolidation or pleural effusion. IMPRESSION: Peribronchial cuffing could represent bronchitis or asthma. Heart is borderline in size.
== END | disposition home or self-care (01) ==
LOC: LABWHC1 08:35
PROVIDERS: ATTEND Internal Medicine Cardiovascular Disease
DX: R91.8 Other nonspecific abnormal finding of lung field (principal); I50.9 Heart failure, unspecified; R06.02 Shortness of breath
CPT/HCPCS: 36415; 71046; 80053; 83880; 85027

== ENCOUNTER → 2018-12-10 | Outpatient (CLI) | payer BC ==
--- NOTE | 2018-12-10 13:00 | CT ---
EXAMINATION TYPE: CT ChestAbdPelvis wo con DATE OF EXAM: 12/10/2018 COMPARISON: 07/27/2018 and 04/27/2018. 12/29/2017 HISTORY: 68-year-old male surveillance for Non-Hodgkin lymphoma; TECHNIQUE: Contiguous axial scanning of the chest, abdomen, and pelvis without IV contrast. Coronal a nd sagittal reconstructions performed. CT DLP: 2794.80 mGycm Automated exposure control for dose reduction was used. FINDINGS: Chest: Heart normal size without pericardial effusion. Coronary vessel calcifications are present. Ascending aorta ectatic and 3.7 cm. Mild intrahepatic arch calcifications with conventional arch vess el branching anatomy. Right anterior chest wall injection port with catheter tip at the lower SVC. No thoracic lymphadenopathy allowing for noncontrast technique limiting assessment of the hilar struc tures. Large caliber to the main right and left pulmonary arteries measuring up to 3.3 cm may reflect underl veronica pulmonary arterial hypertension. Tiny 2 mm peripheral right midlung pulmonary nodule axial image 22 is unchanged from 12/29/2017. Mild t ree-in-bud opacities in the right middle lobe it is new and suggests infectious/inflammatory process, axial image 38. Peribronchial cuffing in the lower lobes could represent bronchitis. ABDOMEN: Tiny hiatal hernia. Liver mildly enlarged to 18.0 cm. Otherwise, noncontrast appearance of the liver, adrenal glands, kid neys, spleen, and mildly atrophic pancreas show no gross abnormality. Redemonstrated cholelithiasis with gallstones measuring up to 1.4 cm. No mesenteric or retroperitoneal lymphadenopathy. Small fatty umbilical hernia. No dilated small daxa l, free fluid, or free air. Normal appendix. Oral contrast progressed to the splenic flexure. Diverticulosis along the proximal t o mid sigmoid without pericolonic inflammation. Mild to moderate apical scarring calcifications infra renal abdominal aorta. Pelvis: Bladder partially distended. Patulous left internal canal. No definite pelvic lymphadenopathy though artifact from the patient's left hip total arthroplasty does cause limitation in assessment of the pe lvis. No abnormal fluid collection in the pelvis. There is a tiny clips. Bones: Moderate degenerative change of the right hip and left hip total arthroplasty with associated metal h ardware artifact. Degenerative changes throughout the mid and lower lumbar spine and degenerative dis c disease midthoracic spine. No osseous destructive process. IMPRESSION: 1. NO SUSPICIOUS LYMPHADENOPATHY TO SUGGEST RECURRENT DISEASE IN THE CHEST, ABDOMEN, OR PELVIS. 2. NEW MILD TREE IN BUD INFILTRATES IN THE RIGHT MIDDLE LOBE SUGGESTS INFECTIOUS/INFLAMMATORY FOCUS. CORRELATE WITH PATIENT'S RESPIRATORY SYMPTOMS. 3. INCIDENTAL: POSSIBLE UNDERLYING PULMONARY ARTERIAL HYPERTENSION. CHOLELITHIASIS AND MILD LEFT-SIDE D COLONIC DIVERTICULOSIS.
== END | disposition home or self-care (01) ==
LOC: RADCTMAIN 10:01
PROVIDERS: ATTEND Internal Medicine Hematology & Oncology
DX: K80.20 Calculus of gallbladder without cholecystitis without obstruction (principal); K57.30 Diverticulosis of large intestine without perforation or abscess without bleeding; R91.8 Other nonspecific abnormal finding of lung field; C85.99 Non-Hodgkin lymphoma, unspecified, extranodal and solid organ sites; Z88.0 Allergy status to penicillin
CPT/HCPCS: 36415; 71250; 74176; 82565; 84520

== ENCOUNTER → 2019-02-04 | Outpatient (CLI) | payer BC, MEDICARE ==
--- NOTE | 2019-02-04 11:21 | US ---
EXAMINATION TYPE: US kidneys/renal and bladder DATE OF EXAM: 02/04/2019 COMPARISON: CT 12/10/2018 CLINICAL HISTORY: R94.4 Abnormal Renal Function Test. EXAM MEASUREMENTS: Right Kidney: 11.0 x 5.4 x 4.4 cm Left Kidney: 12.0 x 6.0 x 5.4 cm Post Void Residual Volume: Not calculated. Patient unable to ambulate well. Bladder not fully disten ded. mL Right Kidney: Partially Obscured by overlying bowel gas, No obvious mass or hydronephrosis seen. Left Kidney: Obscured by overlying bowel gas, No obvious mass or hydronephrosis seen. Bladder: No obvious pathology. Not fully distended. Bilateral Jets seen: Yes Normal Post Void Residual: Not calculated. Patient unable to ambulate well. Bladder not fully diste nded. Exam noted suboptimal due to patient's large body habitus as well as overlying bowel gas and patient' s inability to move or change positioning for optimal imaging. Limited images of left kidney show no gross hydronephrosis. Gallstones are evident. Right kidney is seen better than left kidney without hy dronephrosis. Bladder is poorly distended. IMPRESSION: Suboptimal study without hydronephrosis evident bilaterally.
[2019-02-04 11:41] LABS: Albumin 4.2 g/dL (3.5-5.0); Calcium 9.2 mg/dL (8.4-10.2); HCT 43.5 % (39.0-53.0); HGB 13.6 gm/dL (13.0-17.5); Hypochromasia Slight; MCH 30.5 pg (25.0-35.0); MCHC 31.4 g/dL (31.0-37.0); MCV 97.3 fL (80.0-100.0); Mean Platelet Volume 8.8; Platelet Count 143 k/uL (150-450); Potassium 4.4 mmol/L (3.5-5.1); RBC 4.47 m/uL (4.30-5.90); RDW 14.6 % (11.5-15.5); Total Bilirubin 1.9 mg/dL (0.2-1.3); Total Protein 7.4 g/dL (6.3-8.2); WBC 6.8 k/uL (3.8-10.6)
[2019-02-04 11:58] LABS: Appearance,Urine Clear (Clear); Bilirubin,Urine Negative (Negative); Blood,Urine Negative (Negative); Color,Urine Yellow; Glucose,Urine (UA) Negative (Negative); Hyaline Casts,Urine 3 /lpf (0-2); Ketones,Urine Negative (Negative); Leukocyte Esterase,Urine Negative (Negative); Mucus,Urine Rare /hpf; Nitrite,Urine Negative (Negative); PH, Urine 5.5 (5.0-8.0); Protein,Urine 2+ (Negative); RBC,Urine 1 /hpf (0-5); Specific Gravity,Urine 1.014 (1.001-1.035); Squamous Epithelial Cell,Urine 1 /hpf (0-4); Urobilinogen,Urine <2.0 mg/dL (<2.0); WBC,Urine 1 /hpf (0-5)
== END ==
LOC: RADUSWWP 10:31
PROVIDERS: ATTEND Internal Medicine Hematology & Oncology
DX: R94.4 Abnormal results of kidney function studies (principal); Z88.0 Allergy status to penicillin; C85.90 Non-Hodgkin lymphoma, unspecified, unspecified site
CPT/HCPCS: 76770; 80053; 81001; 85027

== ENCOUNTER 2019-02-05 17:33 | Observation (INO) | payer BC, MEDICARE ==
--- NOTE | 2019-02-05 17:38 | ED ---
SOB HPI - General Stated Complaint: SOB Time Seen by Provider: 02/05/19 17:35 Source: RN notes reviewed, old records reviewed Limitations: no limitations - History of Present Illness Initial Comments: This is a 68-year-old male to the ER for evaluation, this patient resents today for evaluation regards to shortness of breath weakness occasional leg pain. Occasional chest pain. Patient does have history of CAD and follow-up. MD Complaint: shortness of breath, chest pain, pain with inspiration -: days(s) Radiation: back Severity: moderate Severity scale (1-10): 4 Quality: dull Consistency: constant Improves With: oxygen Worsens With: exertion Known History Of: COPD, asthma, congestive heart failure Context: recent URI Associated Symptoms: chest pain, pain with inspiration, cough, sputum production Treatments Prior to Arrival: none - Related Data Home Medications Medication Instructions Recorded Confirmed Finasteride 5 mg PO HS 04/18/14 02/05/19 Simvastatin 20 mg PO HS 04/18/14 02/05/19 Fluticasone Nasal [place] [Flonase 2 spray EA NOSTRIL DAILY 10/26/16 02/05/19 Nasal [place]] Edoxaban Tosylate [Savaysa] 60 mg PO DAILY 12/29/16 02/05/19 Oxybutynin Chloride [Ditropan XL] 10 mg PO DAILY 12/29/16 02/05/19 Albuterol Sulfate [Proair Hfa] 2 puff INHALATION RT-Q4H PRN 09/25/17 02/05/19 Beclomethasone Dipropionate [Qvar 1 puff INHALATION RT-DAILY PRN 02/05/19 02/05/19 80 mcg] Clopidogrel [Plavix] 75 mg PO DAILY 02/05/19 02/05/19 Fesoterodine Fumarate [Toviaz] 8 mg PO DAILY 02/05/19 02/05/19 Furosemide [Lasix] 40 mg PO BID 02/05/19 02/05/19 Metoprolol Tartrate [Lopressor] 25 mg PO TID 02/05/19 02/05/19 Omeprazole [PriLOSEC] 20 mg PO AC-BRKFST 02/05/19 02/05/19 Potassium Chloride [Klor-Con 10] 10 meq PO DAILY 02/05/19 02/05/19 Previous Rx's Medication Instructions Recorded Nitroglycerin Sl Tabs [Nitrostat] 0.4 mg SUBLINGUAL Q5M PRN #20 tab 04/23/14 Lisinopril [Zestril] 20 mg PO DAILY #1 tab 02/08/17 Allergies Allergy/AdvReac Type Severity Reaction Status Date / Time Penicillins Allergy Unknown Verified 02/05/19 19:01 Childhood Review of Systems ROS Statement: Those systems with pertinent positive or pertinent negative responses have been documented in the HPI. ROS Other: All systems not noted in ROS Statement are negative. 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, LAST CHEMO TX 01/2017, back pain WITH LONG PERIODS OF STANDING, PAST HX OF ORAL INSULIN USE, NONE SINCE WT LOSS, hand injury while in [place] requiring multiple graft etc surgeries, infusaport infection IN PAST History of Any Multi-Drug Resistant Organisms: MRSA Date of last positivie culture/infection: 05/18/17 MDRO Source:: RIGHT LEG Past Surgical History: Heart Catheterization With Stent, Joint Replacement, Orthopedic Surgery, Tonsillectomy Additional Past Surgical History / Comment(s): 8 SURGERIES ON right HAND with skin grafts and tendon grafts from his ankle (POST INJURY IN [place]), INFUSAPORT, PTCA 2013 with 2 stents, colonoscopy/polypectomy, total L hip arthroplasty. Past Anesthesia/Blood Transfusion Reactions: Previous Problems w/ Anesthesia Additional Past Anesthesia/Blood Transfusion Reaction / Comment(s): TROUBLE WAKING UP long ago after surgery in the [employer]. Date of Last Stent Placement:: 2013 Past Alcohol Use History: None Reported - Past Family History Mother Family Medical History: COPD, Diabetes Mellitus Additional Family Medical History / Comment(s): Mother of a HI at the age of 61 yrs. She was a heavy smoker. Father History Unknown: Yes Family Medical History: COPD, Diabetes Mellitus, Myocardial Infarction (HI) General Exam General appearance: alert, lethargic, in distress, obese Head exam: Present: atraumatic, normocephalic, normal inspection Eye exam: Present: normal appearance, PERRL, EOMI. Absent: scleral icterus, conjunctival injection, periorbital swelling ENT exam: Present: normal exam, mucous membranes moist Neck exam: Present: normal inspection. Absent: tenderness, meningismus, lymphadenopathy Respiratory exam: Present: respiratory distress, wheezes, accessory muscle use, decreased breath sounds, prolonged expiratory. Absent: rales, rhonchi, stridor Cardiovascular Exam: Present: regular rate, normal rhythm, normal heart sounds. Absent: systolic murmur, diastolic murmur, rubs, gallop, clicks GI/Abdominal exam: Present: soft, normal bowel sounds. Absent: distended, tenderness, guarding, rebound, rigid Extremities exam: Present: normal inspection, full ROM, normal capillary refill, pedal edema, other (bilateral lower extremity edema). Absent: tenderness, joint swelling, calf tenderness Back exam: Present: normal inspection Neurological exam: Present: alert, oriented X3, CN II-XII intact Psychiatric exam: Present: normal affect, normal mood Skin exam: Present: warm, dry, intact, normal color. Absent: rash Course Vital Signs 02/05/19 02/05/19 02/05/19 17:40 17:44 19:14 Temperature 98.5 F Pulse Rate 92 74 Respiratory 22 22 16 Rate Blood Pressure 128/99 110/58 O2 Sat by Pulse 95 97 Oximetry Medical Decision Making - Medical Decision Making 68 male the ER for evaluation chest pain shortness of breath. Not feeling well with weakness. Patient has significant heart history significant medical hi story will be admitted for cardiac observation - Lab Data Result diagrams: 02/05/19 18:10 02/05/19 18:10 Lab Results 02/05/19 02/05/19 02/05/19 Range/Units 18:10 18:10 18:10 WBC 10.8 H (3.8-10.6) k/uL RBC 4.20 L (4.30-5.90) m/uL Hgb 12.8 L (13.0-17.5) gm/dL Hct 40.3 (39.0-53.0) % MCV 95.9 (80.0-100.0) fL MCH 30.5 (25.0-35.0) pg MCHC 31.8 (31.0-37.0) g/dL RDW 14.7 (11.5-15.5) % Plt Count 145 L (150-450) k/uL Neutrophils % 89 % Lymphocytes % 6 % Monocytes % 3 % Eosinophils % 0 % Basophils % 0 % Neutrophils # 9.6 H (1.3-7.7) k/uL Lymphocytes # 0.6 L (1.0-4.8) k/uL Monocytes # 0.4 (0-1.0) k/uL Eosinophils # 0.0 (0-0.7) k/uL Basophils # 0.0 (0-0.2) k/uL Hypochromasia Slight PT 14.6 H (9.0-12.0) sec INR 1.4 H (<1.2) APTT 36.9 H (22.0-30.0) sec D-Dimer 0.66 H (<0.60) mg/L FEU Sodium 139 (137-145) mmol/L Potassium 4.5 (3.5-5.1) mmol/L Chloride 105 (98-107) mmol/L Carbon Dioxide 21 L (22-30) mmol/L Anion Gap 13 mmol/L BUN 34 H (9-20) mg/dL Creatinine 1.33 H (0.66-1.25) mg/dL Est GFR (CKD-EPI)AfAm 63 (>60 ml/min/1.73 sqM) Est GFR (CKD-EPI)NonAf 55 (>60 ml/min/1.73 sqM) Glucose 163 H (74-99) mg/dL Plasma Lactic Acid Walter (0.7-2.0) mmol/L Calcium 10.0 (8.4-10.2) mg/dL Phosphorus 3.4 (2.5-4.5) mg/dL Magnesium 2.1 (1.6-2.3) mg/dL Total Bilirubin 2.1 H (0.2-1.3) mg/dL AST 31 (17-59) U/L ALT 38 (21-72) U/L Alkaline Phosphatase 78 (38-126) U/L Troponin I (0.000-0.034) ng/mL NT-Pro-B Natriuret Pep pg/mL Total Protein 7.2 (6.3-8.2) g/dL Albumin 4.0 (3.5-5.0) g/dL Urine Color Urine Appearance (Clear) Urine pH (5.0-8.0) Ur Specific [place] (1.001-1.035) Urine Protein (Negative) Urine Glucose (UA) (Negative) Urine Ketones (Negative) Urine Blood (Negative) Urine Nitrite (Negative) Urine Bilirubin (Negative) Urine Urobilinogen (<2.0) mg/dL Ur Leukocyte Esterase (Negative) Urine RBC (0-5) /hpf Urine WBC (0-5) /hpf Ur Squamous Epith Cells (0-4) /hpf Urine Bacteria (None) /hpf Urine Mucus (None) /hpf Influenza Type A RNA (Not Detectd) Influenza Type B (PCR) (Not Detectd) 02/05/19 02/05/19 02/05/19 Range/Units 18:10 18:10 18:10 WBC (3.8-10.6) k/uL RBC (4.30-5.90) m/uL Hgb (13.0-17.5) gm/dL Hct (39.0-53.0) % MCV (80.0-100.0) fL MCH (25.0-35.0) pg MCHC (31.0-37.0) g/dL RDW (11.5-15.5) % Plt Count (150-450) k/uL Neutrophils % % Lymphocytes % % Monocytes % % Eosinophils % % Basophils % % Neutrophils # (1.3-7.7) k/uL Lymphocytes # (1.0-4.8) k/uL Monocytes # (0-1.0) k/uL Eosinophils # (0-0.7) k/uL Basophils # (0-0.2) k/uL Hypochromasia PT (9.0-12.0) sec INR (<1.2) APTT (22.0-30.0) sec D-Dimer (<0.60) mg/L FEU Sodium (137-145) mmol/L Potassium (3.5-5.1) mmol/L Chloride (98-107) mmol/L Carbon Dioxide (22-30) mmol/L Anion Gap mmol/L BUN (9-20) mg/dL Creatinine (0.66-1.25) mg/dL Est GFR (CKD-EPI)AfAm (>60 ml/min/1.73 sqM) Est GFR (CKD-EPI)NonAf (>60 ml/min/1.73 sqM) Glucose (74-99) mg/dL Plasma Lactic Acid Walter 1.6 (0.7-2.0) mmol/L Calcium (8.4-10.2) mg/dL Phosphorus (2.5-4.5) mg/dL Magnesium (1.6-2.3) mg/dL Total Bilirubin (0.2-1.3) mg/dL AST (17-59) U/L ALT (21-72) U/L Alkaline Phosphatase (38-126) U/L Troponin I 0.033 (0.000-0.034) ng/mL NT-Pro-B Natriuret Pep 9360 pg/mL Total Protein (6.3-8.2) g/dL Albumin (3.5-5.0) g/dL Urine Color Urine Appearance (Clear) Urine pH (5.0-8.0) Ur Specific [place] (1.001-1.035) Urine Protein (Negative) Urine Glucose (UA) (Negative) Urine Ketones (Negative) Urine Blood (Negative) Urine Nitrite (Negative) Urine Bilirubin (Negative) Urine Urobilinogen (<2.0) mg/dL Ur Leukocyte Esterase (Negative) Urine RBC (0-5) /hpf Urine WBC (0-5) /hpf Ur Squamous Epith Cells (0-4) /hpf Urine Bacteria (None) /hpf Urine Mucus (None) /hpf Influenza Type A RNA (Not Detectd) Influenza Type B (PCR) (Not Detectd) 02/05/19 02/05/19 Range/Units 18:35 18:55 WBC (3.8-10.6) k/uL RBC (4.30-5.90) m/uL Hgb (13.0-17.5) gm/dL Hct (39.0-53.0) % MCV (80.0-100.0) fL MCH (25.0-35.0) pg MCHC (31.0-37.0) g/dL RDW (11.5-15.5) % Plt Count (150-450) k/uL Neutrophils % % Lymphocytes % % Monocytes % % Eosinophils % % Basophils % % Neutrophils # (1.3-7.7) k/uL Lymphocytes # (1.0-4.8) k/uL Monocytes # (0-1.0) k/uL Eosinophils # (0-0.7) k/uL Basophils # (0-0.2) k/uL Hypochromasia PT (9.0-12.0) sec INR (<1.2) APTT (22.0-30.0) sec D-Dimer (<0.60) mg/L FEU Sodium (137-145) mmol/L Potassium (3.5-5.1) mmol/L Chloride (98-107) mmol/L Carbon Dioxide (22-30) mmol/L Anion Gap mmol/L BUN (9-20) mg/dL Creatinine (0.66-1.25) mg/dL Est GFR (CKD-EPI)AfAm (>60 ml/min/1.73 sqM) Est GFR (CKD-EPI)NonAf (>60 ml/min/1.73 sqM) Glucose (74-99) mg/dL Plasma Lactic Acid Walter (0.7-2.0) mmol/L Calcium (8.4-10.2) mg/dL Phosphorus (2.5-4.5) mg/dL Magnesium (1.6-2.3) mg/dL Total Bilirubin (0.2-1.3) mg/dL AST (17-59) U/L ALT (21-72) U/L Alkaline Phosphatase (38-126) U/L Troponin I (0.000-0.034) ng/mL NT-Pro-B Natriuret Pep pg/mL Total Protein (6.3-8.2) g/dL Albumin (3.5-5.0) g/dL Urine Color Yellow Urine Appearance Clear (Clear) Urine pH 5.0 (5.0-8.0) Ur Specific [place] 1.013 (1.001-1.035) Urine Protein 1+ H (Negative) Urine Glucose (UA) Negative (Negative) Urine Ketones Negative (Negative) Urine Blood Trace H (Negative) Urine Nitrite Negative (Negative) Urine Bilirubin Negative (Negative) Urine Urobilinogen <2.0 (<2.0) mg/dL Ur Leukocyte Esterase Negative (Negative) Urine RBC <1 (0-5) /hpf Urine WBC 1 (0-5) /hpf Ur Squamous Epith Cells <1 (0-4) /hpf Urine Bacteria Rare H (None) /hpf Urine Mucus Rare H (None) /hpf Influenza Type A RNA Not Detected (Not Detectd) Influenza Type B (PCR) Not Detected (Not Detectd) - EKG Data -: EKG Interpreted by Me (EKG shows A. fib rate of 89, QRS 140, QTc 479) - Radiology Data Radiology results: report reviewed (Chest x-rays negative for acute disease ultrasound lower extremity is pending), image reviewed Critical Care Time Critical Care Time: Yes Total Critical Care Time: 31 Disposition Clinical Impression: Weakness, Atrial fibrillation with RVR, Dehydration, Acute exacerbation of chronic bronchitis, Chest pain Disposition: ADMITTED IP TO THIS HOSP Condition: Fair Is patient prescribed a controlled substance at d/c from ED?: No Referrals: Migue Hicks III, MD [Primary Care Provider] - 1-2 days
[2019-02-05] MEDS ORDERED: SODIUM CHLORIDE 0.9% 500 ML 500 ML IV STA (17:44)
[2019-02-05] MEDS ORDERED: SODIUM CHLORIDE 0.9% 1,000 ML IV STA (17:44)
[2019-02-05 18:50] LABS: Basophils % (A) 0 %; Eosinophils % (A) 0 %; HCT 40.3 % (39.0-53.0); HGB 12.8 gm/dL (13.0-17.5); Hypochromasia Slight; Lymphocytes # (A) 0.6 k/uL (1.0-4.8); Lymphocytes % (A) 6 %; MCH 30.5 pg (25.0-35.0); MCHC 31.8 g/dL (31.0-37.0); MCV 95.9 fL (80.0-100.0); Mean Platelet Volume 8.8; Monocytes # (A) 0.4 k/uL (0-1.0); Monocytes % (A) 3 %; Neutrophils # (A) 9.6 k/uL (1.3-7.7); Neutrophils % (A) 89 %; Platelet Count 145 k/uL (150-450); RDW 14.7 % (11.5-15.5); WBC 10.8 k/uL (3.8-10.6)
--- NOTE | 2019-02-05 18:55 | XR ---
EXAMINATION: XR chest 2V DATE AND TIME: 02/05/2019 6:45 PM CLINICAL INDICATION: PHH; Weakness TECHNIQUE: Departmental protocol COMPARISON: 09/10/2018 FINDINGS: The lungs are clear. The pleural spaces are negative. Right IJ central line tip distal SVC. The cardiac silhouette is borderline enlarged. The remainder of the mediastinal silhouette is unremarkable. The skeletal structures are stable in appearance. The soft tissues are negative for acute findings. IMPRESSION: NO ACUTE PROCESS.
[2019-02-05 19:02] LABS: INR 1.4 (<1.2); Partial Thromboplastin Time 36.9 sec (22.0-30.0); Prothrombin Time 14.6 sec (9.0-12.0)
[2019-02-05 19:05] LABS: Magnesium 2.1 mg/dL (1.6-2.3); Phosphorus 3.4 mg/dL (2.5-4.5); Potassium 4.5 mmol/L (3.5-5.1); Total Bilirubin 2.1 mg/dL (0.2-1.3); Total Protein 7.2 g/dL (6.3-8.2)
[2019-02-05 19:05] LABS: Appearance,Urine Clear (Clear); Bacteria,Urine Rare /hpf; Bilirubin,Urine Negative (Negative); Blood,Urine Trace (Negative); Color,Urine Yellow; Glucose,Urine (UA) Negative (Negative); Ketones,Urine Negative (Negative); Leukocyte Esterase,Urine Negative (Negative); Mucus,Urine Rare /hpf; Nitrite,Urine Negative (Negative); Protein,Urine 1+ (Negative); RBC,Urine <1 /hpf (0-5); Specific Gravity,Urine 1.013 (1.001-1.035); Squamous Epithelial Cell,Urine <1 /hpf (0-4); Urobilinogen,Urine <2.0 mg/dL (<2.0); WBC,Urine 1 /hpf (0-5)
[2019-02-05 19:06] LABS: D-Dimer 0.66 mg/L FEU (<0.60)
[2019-02-05] MEDS ORDERED: ASPIRIN 81 MG PO STA (20:34)
[2019-02-05] MEDS ORDERED: NITROGLYCERIN SL TABS 0.4 MG TAB SUBLINGUAL PRN (20:34)
[2019-02-05] MEDS ORDERED: IPRATROPIUM-ALBUTEROL 3 ML NEB INHALATION STA (20:35)
--- NOTE | 2019-02-05 21:13 | US ---
EXAMINATION TYPE: US venous doppler duplex LE DATE OF EXAM: 02/05/2019 8:54 PM COMPARISON: NONE CLINICAL HISTORY: Pain. Trouble breathing leg pain. SIDE PERFORMED: Bilateral TECHNIQUE: The lower extremity deep venous system is examined utilizing real time linear array sonog lelia with graded compression, doppler sonography and color-flow sonography. VESSELS IMAGED: External Iliac Vein (EIV) Common Femoral Vein Deep Femoral Vein Greater Saphenous Vein * Femoral Vein Popliteal Vein Small Saphenous Vein * Proximal Calf Veins (* superficial vessels) FINDINGS: Grayscale, color doppler, spectral doppler imaging performed of the deep veins of the lowe r extremities. There is normal flow, compressibility, vascular waveforms. IMPRESSION: NEGATIVE FOR DVT, BILATERAL LOWER EXTREMITIES.
[2019-02-06] MEDS: IPRATROPIUM-ALBUTEROL 3 ML NEB INHALATION SCH ×7 (00:05→23:49)
[2019-02-06] MEDS ORDERED: HEPARIN SODIUM,PORCINE 5,000 UNIT/ML 1 ML VIAL IV ONE (02:17)
[2019-02-06] MEDS ORDERED: HEPARIN SODIUM,PORCINE 5,000 UNIT/ML 1 ML VIAL IV PRN (02:17)
[2019-02-06] MEDS ORDERED: HEPARIN SOD,PORK IN 0.45% NACL 25,000 UNIT in 0.45% NACL 1 250ML.BAG IV SCH (02:30)
[2019-02-06 02:56] VITALS: RESP 18
[2019-02-06 06:39] LABS: Cholesterol 81 mg/dL (<200); HDL Cholesterol 36 mg/dL (40-60); LDL Cholesterol,Calculated 34 mg/dL (0-99); Triglycerides 53 mg/dL (<150)
[2019-02-06] MEDS: FUROSEMIDE 10 MG/ML 4 ML VIAL IV SCH ×2 (08:53→20:28)
[2019-02-06] MEDS ORDERED: EDOXABAN TOSYLATE 60 MG TABLET PO SCH (09:00)
[2019-02-06] MEDS ORDERED: ASPIRIN 325 MG TAB PO SCH (09:00)
[2019-02-06] MEDS ORDERED: ALBUTEROL INHALER 60 PUFF/8 GM INHALER INHALATION PRN (09:40)
[2019-02-06] MEDS ORDERED: NITROGLYCERIN SL TABS 0.4 MG TAB SUBLINGUAL PRN (09:40)
[2019-02-06] MEDS ORDERED: IPRATROPIUM-ALBUTEROL 3 ML NEB INHALATION PRN (09:43)
[2019-02-06] MEDS ORDERED: FESOTERODINE FUMARATE 8 MG PO SCH (09:45)
[2019-02-06] MEDS ORDERED: FUROSEMIDE 40 MG TAB PO SCH (09:45)
[2019-02-06] MEDS ORDERED: NON-FORMULARY DRUG (Potassium Chloride [Klor-Con 10] 10 MEQ) PO SCH (09:45)
[2019-02-06] MEDS ORDERED: PANTOPRAZOLE 40 MG TABLET PO SCH (10:00)
[2019-02-06] MEDS: FLUTICASONE 50MCG/SPRAY NASAL 16GM EA NOSTRIL SCH (10:26)
[2019-02-06] MEDS: OXYBUTYNIN 10 MG TAB.ER.24 PO SCH (10:26)
[2019-02-06] MEDS: EDOXABAN TOSYLATE 60 MG TABLET PO SCH (10:27)
[2019-02-06] MEDS: ATORVASTATIN 40 MG TAB PO SCH (10:32)
[2019-02-06 10:38] LABS: Glucose,Whole Blood 143 mg/dL (75-99)
--- NOTE | 2019-02-06 10:42 | P.CRDCN ---
History of Present Illness History of present illness: This is a pleasant 68-year-old male past medical history significant for coronary artery disease status post stent placement to the OM branch in 2013, chronic diastolic heart failure, hypertension, dyslipidemia, T-cell lymphoma, and chronic persistent atrial fibrillation on long-term anticoagulation. He follows in the office with Dr. Espinoza. We have been asked to see him in consultation for chest pain. He states he presented to the hospital after having a 2-3 day history of increased weakness with exertional shortness of breath. He also describes after exerting himself becoming significantly short of breath he will sit down in his recliner chair to catch his breath and he feels a tightness in the midsternal region associated with dyspnea. He denies palpitations, nausea, vomiting or diaphoresis. He has chronic lower extremity edema however he states some of the swelling is worse than usual. He is seen and examined resting comfortably in bed. He denies sig nificant shortness of breath at rest and also denies any chest discomfort. He also denies PND or orthopnea. No fever, chills or cough at home. EKG reveals atrial fibrillation with right bundle branch block pattern. Chest x-ray is negative for an acute cardiopulmonary process. Venous duplex negative for DVT bilaterally. Laboratory data reviewed, WBC 10.8, hemoglobin 12.8, platelets 145, d-dimer 0.66, sodium 139, potassium 4.5, creatinine 1.33, magnesium 2.1, troponin 0.033, 0.044, 0.034, and T proBNP 9360, LDL 34 and HDL 36. Current cardiac medications include simvastatin 20 mg daily, Lopressor 25 mg 3 times a day, lisinopril 20 mg daily, Lasix 40 mg twice a day and savaysa 60 mg daily. Most recent stress test performed in the office December 2017 with a Lexiscan stress test which was negative for reversible ischemia. Most recent echocardiogram obtained in the office September 2018 reveals preserved left ventricular systolic function with ejection fraction 50%, severely dilated left atrium, mildly dilated right atrium, mild aortic regurgitation, moderate mitral regurgitation, mild to moderate tricuspid regurgitation and moderate pulmonary hypertension with the PAS. 51 mmHg. Most recent cardiac catheterization performed 2013 reveals the left main is normal and free of significant stenosis, LAD mild to moderate disease in the midportion approximately 30-40%, circumflex free of stenosis, first OM with a 90% stenosis proximally, circumflex and OM with 90% stenosis ostially, first diagonal branch of the LAD has ostial 70% stenosis, RCA is free of significant occlusive disease. At that time he underwent successful stent placement to the proximal OM and proximal intermediate. At the time of my exam: CONSTITUTIONAL: Denies fever. Denies chills. EYES: Denies blurred vision. Denies vision changes. Denies eye pain. EARS, NOSE, MOUTH & THROAT: Denies headache. Denies sore throat. Denies ear pain. CARDIOVASCULAR: Denies chest pain. Denies shortness of breath. Denies orthopnea. Denies PND. Denies palpitations. RESPIRATORY: Denies cough. GASTROINTESTINAL: Denies abdominal pain. Denies diarrhea. Denies constipation. Denies nausea. Denies vomiting. MUSCULOSKELETAL: Denies myalgias. INTEGUMENTARY: Denies pruitis. Denies rash. NEUROLOGIC: Denies numbness. Denies tingling. Denies weakness. PSYCHIATRIC: Denies anxiety. Denies depression. ENDOCRINE: Denies fatigue. Denies weight change. Denies polydipsia. Denies polyurina. GENITOURINARY: Denies burning, hematuria or urgency with micturation. HEMATOLOGIC: Denies history of anemia. Denies bleeding. Blood pressure 109/58 heart rate 70 afebrile maintaining oxygen saturation on room air GENERAL: This is a 68-year-old male in no apparent distress at the time of my examination. Morbidly obese. HEENT: Head is atraumatic, normocephalic. Pupils are equal, round. Sclerae anicteric. Conjunctivae are clear. Mucous membranes of the mouth are moist. Neck is supple. There is no jugular venous distention. No carotid bruit is heard. LUNGS: Bibasilar rales, faint expiratory wheezes, no rhonchi. Diminished bilaterally. No chest wall tenderness is noted on palpation or with deep breathing. HEART: Irregular rate and rhythm with systolic ejection murmur at the left sternal border, no rubs or gallops. S1 and S2 heard. Distant heart sounds. ABDOMEN: Soft, nontender. Bowel sounds are heard. No organomegaly noted. Obese. EXTREMITIES: 2+ bilateral lower extremity edema, significant erythema and chronic skin changes and dry sloughing of the skin. VASCULAR: Radial and dorsalis pedis pulses palpated, no evidence of clubbing. NEUROLOGIC: Patient is awake, alert and oriented x3. ASSESSMENT Acute on chronic diastolic heart failure Mild troponin leak, not suggestive of an acute coronary event. Atypical pattern. History of coronary artery disease status post stent placement Chronic persistent atrial fibrillation on long-term anticoagulation Hypertension Dyslipidemia History of B-cell lymphoma last chemotherapy 01/2017 PLAN Initiate on IV lasix 40 mg BID. Obtain 2D echocardiogram and doppler study to assess cardiac structure and function. Follow kidney function and electrolytes in the morning. Document accurate intake and output along with daily weights. Once fluid volume improves we will consider repeating a stress test. Further recommendations to follow based on clinical course. Thank you kindly for this consultation. Nurse Practitioner note has been reviewed, I agree with a documented findings and plan of care. Patient was seen and examined. Past Medical History Past Medical History: Atrial Fibrillation, Asthma, Coronary Artery Disease (CAD), Cancer, Hyperlipidemia, Hypertension, Osteoarthritis (OA), Prostate Disorder Additional Past Medical History / Comment(s): WOUNDS TO MRAY ANKLES, STATES HEALING "BOIL" ON RT LEG, August 2016 diagnosed with subcutaneous B cell lymphoma, LAST CHEMO TX 01/2017, back pain WITH LONG PERIODS OF STANDING, PAST HX OF ORAL INSULIN USE, NONE SINCE WT LOSS, hand injury while in [place] requiring multiple graft etc surgeries, infusaport infection IN PAST History of Any Multi-Drug Resistant Organisms: MRSA Date of last positivie culture/infection: 05/18/17 MDRO Source:: RIGHT LEG Past Surgical History: Heart Catheterization With Stent, Joint Replacement, Orthopedic Surgery, Tonsillectomy Additional Past Surgical History / Comment(s): 8 SURGERIES ON right HAND with skin grafts and tendon grafts from his ankle (POST INJURY IN [place]), INFUSAPORT, PTCA 2013 with 2 stents, colonoscopy/polypectomy, total L hip arthroplasty. Past Anesthesia/Blood Transfusion Reactions: Previous Problems w/ Anesthesia Additional Past Anesthesia/Blood Transfusion Reaction / Comment(s): TROUBLE WAKING UP long ago after surgery in the [employer]. Date of Last Stent Placement:: 2013 Past Psychological History: No Psychological Hx Reported Additional Psychological History / Comment(s): . Smoking Status: Never smoker Past Alcohol Use History: None Reported Past Drug Use History: None Reported - Past Family History Mother Family Medical History: COPD, Diabetes Mellitus Additional Family Medical History / Comment(s): Mother of a [place] at the age of 61 yrs. She was a heavy smoker. Father History Unknown: Yes Family Medical History: COPD, Diabetes Mellitus, Myocardial Infarction ([place]) Medications and Allergies Home Medications Medication Instructions Recorded Confirmed Type Finasteride 5 mg PO HS 04/18/14 02/05/19 History Simvastatin 20 mg PO HS 04/18/14 02/05/19 History Nitroglycerin Sl Tabs [Nitrostat] 0.4 mg SUBLINGUAL Q5M PRN #20 tab 04/23/14 02/05/19 Rx Fluticasone Nasal [place] [Flonase 2 spray EA NOSTRIL DAILY 10/26/16 02/05/19 History Nasal [place]] Edoxaban Tosylate [Savaysa] 60 mg PO DAILY 12/29/16 02/05/19 History Oxybutynin Chloride [Ditropan XL] 10 mg PO DAILY 12/29/16 02/05/19 History Lisinopril [Zestril] 20 mg PO DAILY #1 tab 02/08/17 02/05/19 Rx Albuterol Sulfate [Proair Hfa] 2 puff INHALATION RT-Q4H PRN 09/25/17 02/05/19 History Beclomethasone Dipropionate [Qvar 1 puff INHALATION RT-DAILY PRN 02/05/19 02/05/19 History 80 mcg] Clopidogrel [Plavix] 75 mg PO DAILY 02/05/19 02/05/19 History Fesoterodine Fumarate [Toviaz] 8 mg PO DAILY 02/05/19 02/05/19 History Furosemide [Lasix] 40 mg PO BID 02/05/19 02/05/19 History Metoprolol Tartrate [Lopressor] 25 mg PO TID 02/05/19 02/05/19 History Omeprazole [PriLOSEC] 20 mg PO AC-BRKFST 02/05/19 02/05/19 History Potassium Chloride [Klor-Con 10] 10 meq PO DAILY 02/05/19 02/05/19 History Allergies Allergy/AdvReac Type Severity Reaction Status Date / Time Penicillins Allergy Unknown Verified 02/05/19 23:55 Childhood Physical Exam Vitals: Vital Signs Temp Pulse Pulse Resp BP BP BP 02/06/19 07:23 72 02/06/19 07:10 74 02/06/19 04:00 70 02/06/19 03:49 70 02/06/19 03:03 70 18 02/06/19 00:14 68 02/06/19 00:07 68 02/06/19 00:00 98.1 F 70 18 134/73 02/05/19 22:21 98.0 F 02/05/19 21:51 98.1 F 17 134/73 02/05/19 21:10 68 24 138/76 02/05/19 20:20 74 24 02/05/19 19:40 68 24 113/64 02/05/19 19:30 75 25 H 110/58 02/05/19 19:20 69 25 H 110/58 02/05/19 19:14 74 16 110/58 02/05/19 19:10 72 24 110/58 02/05/19 19:00 72 27 H 115/66 02/05/19 18:40 115/66 02/05/19 17:44 22 02/05/19 17:40 98.5 F 92 22 128/99 02/05/19 17:37 Pulse Ox 02/06/19 07:23 02/06/19 07:10 02/06/19 04:00 02/06/19 03:49 02/06/19 03:03 02/06/19 00:14 02/06/19 00:07 02/06/19 00:00 02/05/19 22:21 02/05/19 21:51 02/05/19 21:10 96 02/05/19 20:20 96 02/05/19 19:40 96 02/05/19 19:30 96 02/05/19 19:20 97 02/05/19 19:14 97 02/05/19 19:10 96 02/05/19 19:00 97 02/05/19 18:40 02/05/19 17:44 02/05/19 17:40 95 02/05/19 17:37 95 Intake and Output 02/05/19 02/06/19 02/06/19 22:59 06:59 14:59 Output Total 1 5 Balance -1 -5 Output: Urine 1 Stool 1 4 Other: Voiding Method Toilet Urinal # Voids 1 1 # Bowel Movements 1 Weight 167.829 kg Results 02/05/19 18:10 02/05/19 18:10 Cardiac Enzymes 02/05/19 02/05/19 02/06/19 Range/Units 18:10 18:10 00:32 AST 31 (17-59) U/L Troponin I 0.033 0.044 H* (0.000-0.034) ng/mL 02/06/19 Range/Units 05:55 AST (17-59) U/L Troponin I 0.034 (0.000-0.034) ng/mL Coagulation 02/05/19 Range/Units 18:10 PT 14.6 H (9.0-12.0) sec APTT 36.9 H (22.0-30.0) sec Lipids 02/06/19 Range/Units 05:55 Triglycerides 53 (<150) mg/dL Cholesterol 81 (<200) mg/dL HDL Cholesterol 36 L (40-60) mg/dL CBC 02/05/19 Range/Units 18:10 WBC 10.8 H (3.8-10.6) k/uL RBC 4.20 L (4.30-5.90) m/uL Hgb 12.8 L (13.0-17.5) gm/dL Hct 40.3 (39.0-53.0) % Plt Count 145 L (150-450) k/uL Comprehensive Metabolic Panel 02/05/19 Range/Units 18:10 Sodium 139 (137-145) mmol/L Potassium 4.5 (3.5-5.1) mmol/L Chloride 105 (98-107) mmol/L Carbon Dioxide 21 L (22-30) mmol/L BUN 34 H (9-20) mg/dL Creatinine 1.33 H (0.66-1.25) mg/dL Glucose 163 H (74-99) mg/dL Calcium 10.0 (8.4-10.2) mg/dL AST 31 (17-59) U/L ALT 38 (21-72) U/L Alkaline Phosphatase 78 (38-126) U/L Total Protein 7.2 (6.3-8.2) g/dL Albumin 4.0 (3.5-5.0) g/dL Current Medications Generic Name Dose Route Start Last Admin Trade Name Freq PRN Reason Stop Dose Admin Albuterol/Ipratropium 3 ml 02/06/19 00:00 02/06/19 07:10 Duoneb 0.5 Mg-3 Mg/3 Ml Soln INHALATION 3 ml RT-Q4H JASBIR Administration Aspirin 325 mg 02/06/19 09:00 Aspirin PO DAILY [facility] Heparin Sodium (Porcine) 0 unit 02/06/19 02:17 Heparin IV PER PROTOCOL PRN Low PTT Protocol Heparin Sodium/Sodium Chloride 250 mls @ 8.391 mls/hr 02/06/19 02:30 02/06/19 03:21 25,000 unit/ Sodium Chloride IV 5 units/kg/hr .Q24H JASBIR 8.391 mls/hr Administration Protocol 5 UNITS/KG/HR Nitroglycerin 0.4 mg 02/05/19 20:34 Nitrostat SUBLINGUAL Q5M PRN Chest Pain Intake and Output 02/05/19 02/06/19 02/06/19 22:59 06:59 14:59 Output Total 1 5 Balance -1 -5 Output: Urine 1 Stool 1 4 Other: Voiding Method Toilet Urinal # Voids 1 1 # Bowel Movements 1 Weight 167.829 kg 02/05/19 18:10 02/05/19 18:10
[2019-02-06 11:48] LABS: Glucose,Whole Blood 166 mg/dL (75-99)
--- NOTE | 2019-02-06 13:55 | P.HPIM ---
History of Present Illness This is a pleasant 68 years old male with past medical history of coronary artery disease, hyperlipidemia, hypertension, atrial fibrillation, osteorthritis, he is a patient of Dr. Ellsworth. Patient presents because of progressive dyspnea over several weeks to 2 months, which was getting worse yesterday. Associated with exertional dyspnea. And generalized weakness. Patient was not on home oxygen. Patient had associated chest tightness no significant pain. Vitas looks stable. His troponin was elevated at 0.04, came down to normal at 0.03. Influenza was negative. He has mild leukocytosis at 10.8 K. Elevated d- dimer at 0.66. Electrolytes are within normals. Creatinine is high at 1.3, compared to baseline went 0.3-1.4 in the last 3 months, previously was 0.7-1.1. Liver enzymes elevated. Patient received intravenous fluids in the emergency room and Lasix 40 mg twice a day. Chest x-ray: No acute process. Patient has been evaluated by cardiology who recommended IV Lasix plus echocardiogram. And to repeat stress test after diuresing patient. Review of Systems CONSTITUTIONAL: No fever, no malaise, no fatigue. HEENT: No recent visual problems or hearing problems. Denied any sore throat. CARDIOVASCULAR: No orthopnea, PND, no palpitations, no syncope. PULMONARY: No shortness of breath, no cough, no hemoptysis. GASTROINTESTINAL: No diarrhea, no nausea, no vomiting, no abdominal pain. Normoactive bowel sounds. NEUROLOGICAL: No headaches, no weakness, no numbness. HEMATOLOGICAL: Denies any bleeding or petechiae. GENITOURINARY: Denies any burning micturition, frequency, or urgency. MUSCULOSKELETAL/RHEUMATOLOGICAL: Denies any joint pain, swelling, or any muscle pain. ENDOCRINE: Denies any polyuria or polydipsia. Past Medical History Past Medical History: Atrial Fibrillation, Asthma, Coronary Artery Disease (CAD), Cancer, Hyperlipidemia, Hypertension, Osteoarthritis (OA), Prostate Disorder Additional Past Medical History / Comment(s): WOUNDS TO [place] ANKLES, STATES HEALING "BOIL" ON RT LEG, August 2016 diagnosed with subcutaneous B cell lymphoma, LAST CHEMO TX 01/2017, back pain WITH LONG PERIODS OF STANDING, PAST HX OF ORAL INSULIN USE, NONE SINCE WT LOSS, hand injury while in [place] req uiring multiple graft etc surgeries, infusaport infection IN PAST History of Any Multi-Drug Resistant Organisms: MRSA Date of last positivie culture/infection: 05/18/17 MDRO Source:: RIGHT LEG Past Surgical History: Heart Catheterization With Stent, Joint Replacement, Orthopedic Surgery, Tonsillectomy Additional Past Surgical History / Comment(s): 8 SURGERIES ON right HAND with skin grafts and tendon grafts from his ankle (POST INJURY IN [place]), INFUSAPORT, PTCA 2013 with 2 stents, colonoscopy/polypectomy, total L hip arthroplasty. Past Anesthesia/Blood Transfusion Reactions: Previous Problems w/ Anesthesia Additional Past Anesthesia/Blood Transfusion Reaction / Comment(s): TROUBLE WAKING UP long ago after surgery in the [employer]. Date of Last Stent Placement:: 2013 Past Psychological History: No Psychological Hx Reported Additional Psychological History / Comment(s): . Smoking Status: Never smoker Past Alcohol Use History: None Reported Past Drug Use History: None Reported - Past Family History Mother Family Medical History: COPD, Diabetes Mellitus Additional Family Medical History / Comment(s): Mother of a [place] at the age of 61 yrs. She was a heavy smoker. Father History Unknown: Yes Family Medical History: COPD, Diabetes Mellitus, Myocardial Infarction ([place]) Medications and Allergies Home Medications Medication Instructions Recorded Confirmed Type Finasteride 5 mg PO HS 04/18/14 02/05/19 History Simvastatin 20 mg PO HS 04/18/14 02/05/19 History Nitroglycerin Sl Tabs [Nitrostat] 0.4 mg SUBLINGUAL Q5M PRN #20 tab 04/23/14 02/05/19 Rx Fluticasone Nasal [place] [Flonase 2 spray EA NOSTRIL DAILY 10/26/16 02/05/19 History Nasal [place]] Edoxaban Tosylate [Savaysa] 60 mg PO DAILY 12/29/16 02/05/19 History Oxybutynin Chloride [Ditropan XL] 10 mg PO DAILY 12/29/16 02/05/19 History Lisinopril [Zestril] 20 mg PO DAILY #1 tab 02/08/17 02/05/19 Rx Albuterol Sulfate [Proair Hfa] 2 puff INHALATION RT-Q4H PRN 09/25/17 02/05/19 History Beclomethasone Dipropionate [Qvar 1 puff INHALATION RT-DAILY PRN 02/05/19 02/05/19 History 80 mcg] Fesoterodine Fumarate [Toviaz] 8 mg PO DAILY 02/05/19 02/05/19 History Furosemide [Lasix] 40 mg PO BID 02/05/19 02/05/19 History Metoprolol Tartrate [Lopressor] 25 mg PO TID 02/05/19 02/05/19 History Omeprazole [PriLOSEC] 20 mg PO AC-BRKFST 02/05/19 02/05/19 History Potassium Chloride [Klor-Con 10] 10 meq PO DAILY 02/05/19 02/05/19 History Allergies Allergy/AdvReac Type Severity Reaction Status Date / Time Penicillins Allergy Unknown Verified 02/05/19 23:55 Childhood Physical Exam Vitals: Vital Signs Temp Pulse Pulse Resp BP BP BP 02/06/19 11:54 97.8 F 78 18 109/61 02/06/19 11:17 18 02/06/19 08:15 97.2 F L 76 18 109/58 02/06/19 07:23 72 02/06/19 07:10 74 02/06/19 04:00 70 02/06/19 03:49 70 02/06/19 03:03 70 18 02/06/19 00:14 68 02/06/19 00:07 68 02/06/19 00:00 98.1 F 70 18 134/73 02/05/19 22:21 98.0 F 02/05/19 21:51 98.1 F 17 134/73 02/05/19 21:10 68 24 138/76 02/05/19 20:20 74 24 02/05/19 19:40 68 24 113/64 02/05/19 19:30 75 25 H 110/58 02/05/19 19:20 69 25 H 110/58 02/05/19 19:14 74 16 110/58 02/05/19 19:10 72 24 110/58 02/05/19 19:00 72 27 H 115/66 02/05/19 18:40 115/66 02/05/19 17:44 22 02/05/19 17:40 98.5 F 92 22 128/99 02/05/19 17:37 Pulse Ox 02/06/19 11:54 99 02/06/19 11:17 02/06/19 08:15 98 02/06/19 07:23 03/13/19 07:10 02/06/19 04:00 02/06/19 03:49 02/06/19 03:03 02/06/19 00:14 02/06/19 00:07 02/06/19 00:00 02/05/19 22:21 02/05/19 21:51 02/05/19 21:10 96 02/05/19 20:20 96 02/05/19 19:40 96 02/05/19 19:30 96 02/05/19 19:20 97 02/05/19 19:14 97 02/05/19 19:10 96 02/05/19 19:00 97 02/05/19 18:40 02/05/19 17:44 02/05/19 17:40 95 02/05/19 17:37 95 Intake and Output 02/05/19 02/06/19 02/06/19 22:59 06:59 14:59 Intake Total 100 Output Total 1 5 1551 Balance -1 5 1451 Intake: Oral 100 Output: Urine 1 1550 Stool 1 4 1 Other: Voiding Method Toilet Toilet Urinal Urinal # Voids 1 1 3 # Bowel Movements 1 Weight 167.829 kg -GENERAL: The patient is alert and oriented x3, not in any acute distress. Morbidly obese HEENT: Pupils are round and equally reacting to light. EOMI. No scleral icterus. No conjunctival pallor. Normocephalic, atraumatic. No pharyngeal erythema. No thyromegaly. CARDIOVASCULAR: S1 and S2 present. No murmurs, rubs, or gallops. -PULMONARY: Chest is clear to auscultation, no wheezing . Bilateral basal crackles. ABDOMEN: Soft, nontender, nondistended, normoactive bowel sounds. No palpable organomegaly. MUSCULOSKELETAL: No joint swelling or deformity. EXTREMITIES: No cyanosis, clubbing, or pedal edema. NEUROLOGICAL: Gross neurological examination did not reveal any focal deficits. SKIN: No rashes. Results CBC & Chem 7: 02/05/19 18:10 02/05/19 18:10 Labs: Abnormal Lab Results - Last 24 Hours (Table) 02/05/19 02/05/19 02/05/19 Range/Units 18:10 18:10 18:10 WBC 10.8 H (3.8-10.6) k/uL RBC 4.20 L (4.30-5.90) m/uL Hgb 12.8 L (13.0-17.5) gm/dL Plt Count 145 L (150-450) k/uL Neutrophils # 9.6 H (1.3-7.7) k/uL Lymphocytes # 0.6 L (1.0-4.8) k/uL PT 14.6 H (9.0-12.0) sec INR 1.4 H (<1.2) APTT 36.9 H (22.0-30.0) sec D-Dimer 0.66 H (<0.60) mg/L FEU Carbon Dioxide 21 L (22-30) mmol/L BUN 34 H (9-20) mg/dL Creatinine 1.33 H (0.66-1.25) mg/dL Glucose 163 H (74-99) mg/dL POC Glucose (mg/dL) (75-99) mg/dL Total Bilirubin 2.1 H (0.2-1.3) mg/dL Troponin I (0.000-0.034) ng/mL HDL Cholesterol (40-60) mg/dL Urine Protein (Negative) Urine Blood (Negative) Urine Bacteria (None) /hpf Urine Mucus (None) /hpf 02/05/19 02/06/19 02/06/19 Range/Units 18:35 00:32 05:55 WBC (3.8-10.6) k/uL RBC (4.30-5.90) m/uL Hgb (13.0-17.5) gm/dL Plt Count (150-450) k/uL Neutrophils # (1.3-7.7) k/uL Lymphocytes # (1.0-4.8) k/uL PT (9.0-12.0) sec INR (<1.2) APTT (22.0-30.0) sec D-Dimer (<0.60) mg/L FEU Carbon Dioxide (22-30) mmol/L BUN (9-20) mg/dL Creatinine (0.66-1.25) mg/dL Glucose (74-99) mg/dL POC Glucose (mg/dL) (75-99) mg/dL Total Bilirubin (0.2-1.3) mg/dL Troponin I 0.044 H* (0.000-0.034) ng/mL HDL Cholesterol 36 L (40-60) mg/dL Urine Protein 1+ H (Negative) Urine Blood Trace H (Negative) Urine Bacteria Rare H (None) /hpf Urine Mucus Rare H (None) /hpf 02/06/19 02/06/19 Range/Units 10:37 11:43 WBC (3.8-10.6) k/uL RBC (4.30-5.90) m/uL Hgb (13.0-17.5) gm/dL Plt Count (150-450) k/uL Neutrophils # (1.3-7.7) k/uL Lymphocytes # (1.0-4.8) k/uL PT (9.0-12.0) sec INR (<1.2) APTT (22.0-30.0) sec D-Dimer (<0.60) mg/L FEU Carbon Dioxide (22-30) mmol/L BUN (9-20) mg/dL Creatinine (0.66-1.25) mg/dL Glucose (74-99) mg/dL POC Glucose (mg/dL) 143 H 166 H (75-99) mg/dL Total Bilirubin (0.2-1.3) mg/dL Troponin I (0.000-0.034) ng/mL HDL Cholesterol (40-60) mg/dL Urine Protein (Negative) Urine Blood (Negative) Urine Bacteria (None) /hpf Urine Mucus (None) /hpf Microbiology - Last 24 Hours (Table) 02/05/19 18:35 Urine Culture - Preliminary Urine,Voided Thrombosis Risk Factor Assmnt - Choose All That Apply Any of the Below Risk Factors Present?: Yes Each Factor Represents 1 point: Obesity (BMI >25), Swollen legs (current) Each Risk Factor Represents 2 Points: Age 61-74 years, Central venous access Other congenital or acquired thrombophilia - If yes, enter type in comment: No Thrombosis Risk Factor Assessment Total Risk Factor Score: 6 Thrombosis Risk Factor Assessment Level: High Risk Assessment and Plan Assessment: Acute and chronic diastolic heart failure Atypical elevated troponin, mild. No suggestive of acute coronary event Mild leukocytosis, mostly reactive. No fever. No need for antibiotics currently and keep monitoring. History of coronary artery disease status post stent placement Chronic atrial fibrillation on anticoagulation Hypertension Hyperlipidemia History of B-cell lymphoma Plan: This is a pleasant 68 years old male. Presents with acute diastolic CHF. Cardiology evaluated the patient, therefore stress test after diuresis and the patient. Labs and medication were reviewed.. Continue same treatment. Continue with symptomatic treatment. Resume home medication. Monitor lytes and vitals. DVT and GI prophylaxis. Further recommendations of the clinical course of the patient DVT prophylaxis: on savaysa GI Prophylaxis: Pepcid Prognosis is guarded
[2019-02-06 16:47] LABS: Glucose,Whole Blood 154 mg/dL (75-99)
[2019-02-06] MEDS: METOPROLOL TARTRATE 25 MG TAB PO SCH ×2 (17:30→20:28)
[2019-02-06] MEDS: FLUTICASONE 44 MCG INHALER INHALATION SCH (19:16)
[2019-02-06 20:17] LABS: Glucose,Whole Blood 168 mg/dL (75-99)
[2019-02-06] MEDS: INSULIN ASPART (NovoLOG) 100 UNIT/ML VIAL SQ SCH (20:28)
[2019-02-06] MEDS: FAMOTIDINE 20 MG/2 ML VIAL IV SCH (20:28)
[2019-02-06] MEDS ORDERED: FINASTERIDE 5 MG TAB PO SCH (21:00)
[2019-02-07] MEDS: IPRATROPIUM-ALBUTEROL 3 ML NEB INHALATION SCH ×4 (03:37→14:59)
[2019-02-07 06:50] LABS: Glucose,Whole Blood 109 mg/dL (75-99)
[2019-02-07] MEDS: FLUTICASONE 44 MCG INHALER INHALATION SCH (07:55)
[2019-02-07] MEDS: INSULIN ASPART (NovoLOG) 100 UNIT/ML VIAL SQ SCH ×2 (08:11→12:04)
[2019-02-07] MEDS ORDERED: LISINOPRIL 20 MG TAB PO SCH (09:00)
[2019-02-07] MEDS ORDERED: ASPIRIN 81 MG PO SCH (09:00)
--- NOTE | 2019-02-07 09:39 | PN ---
PROGRESS NOTE Mr. Welsh is a 68-year-old male with morbid obesity, history of coronary artery disease, status post percutaneous revascularization, chronic diastolic heart failure, T- cell lymphoma, chronic persistent atrial fibrillation, anticoagulated who presented with symptoms of progressive dyspnea and tightness in the chest. Her breathing is better today. He has no cough. He has no chest tightness. He denies any dizziness or palpitation. He denies any nausea. He continues to be at this time on Lipitor 40 mg daily, lisinopril 20 mg daily, insulin, 60 mg daily, Lasix 40 mg IV q.12 hours, metoprolol tartrate 25 mg 3 times a day. PHYSICAL EXAMINATION: Blood pressure 113/60 with a heart rate in the 70s. LUNGS: Clear. HEART: Irregular, regular, S1, S2. No S3 with a systolic murmur, no diastolic murmur. ABDOMEN: Soft, obese, nontender. EXTREMITIES: With chronic skin changes and chronic edema. LAB DATA: His BUN and creatinine are pending today. IMPRESSION: 1. Symptoms of dyspnea with history of chronic diastolic heart failure. 2. History of chronic persistent atrial fibrillation anticoagulated with controlled ventricular response. 3. Coronary artery disease, stable. 4. Morbid obesity. 5. Chronic kidney disease. 6. Hypertension. 7. Diabetes mellitus. 8. Hyperlipidemia. RECOMMENDATION: From the cardiac standpoint, I would expect he should be able to be discharged home today and follow as an outpatient with Dr. Espinoza. Depending on his progress, further recommendation will be made. MMODL / IJN: [id number] /
[2019-02-07] MEDS: FUROSEMIDE 10 MG/ML 4 ML VIAL IV SCH (10:48)
[2019-02-07] MEDS: FAMOTIDINE 20 MG/2 ML VIAL IV SCH (10:48)
[2019-02-07] MEDS: METOPROLOL TARTRATE 25 MG TAB PO SCH (10:48)
[2019-02-07] MEDS: EDOXABAN TOSYLATE 60 MG TABLET PO SCH (10:49)
[2019-02-07] MEDS: ATORVASTATIN 40 MG TAB PO SCH (10:49)
[2019-02-07] MEDS: FLUTICASONE 50MCG/SPRAY NASAL 16GM EA NOSTRIL SCH (10:49)
[2019-02-07] MEDS: OXYBUTYNIN 10 MG TAB.ER.24 PO SCH (10:49)
[2019-02-07 11:05] LABS: Basophils % (A) 0 %; Eosinophils # (A) 0.3 k/uL (0-0.7); Eosinophils % (A) 4 %; HCT 39.1 % (39.0-53.0); HGB 12.1 gm/dL (13.0-17.5); Hypochromasia Slight; Lymphocytes # (A) 1.1 k/uL (1.0-4.8); Lymphocytes % (A) 15 %; MCH 29.9 pg (25.0-35.0); MCHC 30.9 g/dL (31.0-37.0); MCV 96.9 fL (80.0-100.0); Mean Platelet Volume 8.8; Monocytes # (A) 0.5 k/uL (0-1.0); Monocytes % (A) 7 %; Neutrophils # (A) 5.2 k/uL (1.3-7.7); Neutrophils % (A) 73 %; Platelet Count 121 k/uL (150-450); RBC 4.03 m/uL (4.30-5.90); RDW 14.8 % (11.5-15.5); WBC 7.1 k/uL (3.8-10.6)
[2019-02-07 11:16] LABS: Calcium 8.8 mg/dL (8.4-10.2); Potassium 3.4 mmol/L (3.5-5.1)
[2019-02-07 11:46] LABS: Glucose,Whole Blood 177 mg/dL (75-99)
[2019-02-07] MEDS ORDERED: POTASSIUM CHLORIDE ER 20 MEQ TAB.ER PO STA (11:48)
--- NOTE | 2019-02-07 14:32 | P.DS ---
Providers Date of admission: 02/05/19 20:34 Attending physician: Paris Kwan Consults: 02/05/19 20:34 Consult Physician Urgent Consulting Provider: Vel Plata Consult Reason/Comments: cp Do you want consulting provider notified?: Yes Primary care physician: Migue Hicks Hospital Course: Acute and chronic diastolic heart failure Atypical elevated troponin, mild. No suggestive of acute coronary event Mild leukocytosis, mostly reactive. No fever. Resolved History of coronary artery disease status post stent placement Chronic atrial fibrillation on anticoagulation chronic kidney disease , stage III Hypertension Hyperlipidemia History of B-cell lymphoma Hospital course This is a pleasant 68 years old male with past medical history of coronary artery disease, hyperlipidemia, hypertension, atrial fibrillation, osteorthritis, he is a patient of Dr. Ellsworth. Patient presents because of progressive dyspnea over several weeks to 2 months, which was getting worse yesterday. Associated with exertional dyspnea. And generalized weakness. Patient was not on home oxygen. Patient had associated chest tightness no significant pain. Venous Doppler for both lower extremity is negative for DVT. Patient has been evaluated by flatwork finisher team. He received intravenous diuresis with Lasix. Patient showed interval improvement and his dyspnea is improving and he could walk in the hallway with no difficulties. Chest tightness has improved no chest pain or tightness anymore. No coughing. No dizziness. No nausea or vomiting. No change in urine or bowel habits. No fever. Patient has been cleared by cardiology team for discharge Patient will be discharged on oral Lasix twice a day and he will follow-up with his bull driver in this coming Monday, also patient was instructed to follow up with Dr. Ellsworth his PCP in one week and he has already appointment with Dr. Malloy from cardiology by the end of this month. Patient will check his latissimus including kidney functions during his physician appointments Patient states his back to his baseline and he wants to go home. Problems and management plan was discussed with the patient and he verbalized understanding and acceptance. Patient was found stable and can be discharged home and guarded prognosis, however he needs follow-up as an outpatient. Patient was instructed to follow up with his PCP and flatwork finisher in 1 week and he agrees. Also patient has gone to his bull driver appointment in a few days and this coming Monday. Patient states he has also prepped at home including baby aspirin Gen: patient is a AAOx3, no distress CVS: S1-S2, RRR, no murmur Lungs: B/L CTA, no wheezing Abdomen: soft, no distention, no tenderness, positive bowel sounds Extremity: Mild bilateral leg edema . no induration Time spent more than 35 minutes Patient Condition at Discharge: Fair Plan - Discharge Summary Discharge Rx Participant: Yes New Discharge Prescriptions: New Aspirin 81 mg PO DAILY #30 chew Nitroglycerin Sl Tabs [Nitrostat] 0.4 mg SUBLINGUAL Q5M PRN #30 tab PRN Reason: Chest Pain Continue Simvastatin 20 mg PO HS Finasteride 5 mg PO HS Nitroglycerin Sl Tabs [Nitrostat] 0.4 mg SUBLINGUAL Q5M PRN #20 tab PRN Reason: Chest Pain Fluticasone Nasal [place] [Flonase Nasal [place]] 2 spray EA NOSTRIL DAILY Oxybutynin Chloride [Ditropan XL] 10 mg PO DAILY Edoxaban Tosylate [Savaysa] 60 mg PO DAILY Lisinopril [Zestril] 20 mg PO DAILY #1 tab Albuterol Sulfate [Proair Hfa] 2 puff INHALATION RT-Q4H PRN PRN Reason: Shortness Of Breath Omeprazole [PriLOSEC] 20 mg PO AC-BRKFST Fesoterodine Fumarate [Toviaz] 8 mg PO DAILY Potassium Chloride [Klor-Con 10] 10 meq PO DAILY Furosemide [Lasix] 40 mg PO BID Beclomethasone Dipropionate [Qvar 80 mcg] 1 puff INHALATION RT-DAILY PRN PRN Reason: Shortness Of Breath Metoprolol Tartrate [Lopressor] 25 mg PO TID Discontinued Clopidogrel [Plavix] 75 mg PO DAILY Discharge Medication List Finasteride 5 mg PO HS 04/18/14 [History] Simvastatin 20 mg PO HS 04/18/14 [History] Nitroglycerin Sl Tabs [Nitrostat] 0.4 mg SUBLINGUAL Q5M PRN #20 tab 04/23/14 [Rx] Fluticasone Nasal [place] [Flonase Nasal [place]] 2 spray EA NOSTRIL DAILY 10/26/16 [History] Edoxaban Tosylate [Savaysa] 60 mg PO DAILY 12/29/16 [History] Oxybutynin Chloride [Ditropan XL] 10 mg PO DAILY 12/29/16 [History] Lisinopril [Zestril] 20 mg PO DAILY #1 tab 02/08/17 [Rx] Albuterol Sulfate [Proair Hfa] 2 puff INHALATION RT-Q4H PRN 09/25/17 [History] Beclomethasone Dipropionate [Qvar 80 mcg] 1 puff INHALATION RT-DAILY PRN 02/05/19 [History] Fesoterodine Fumarate [Toviaz] 8 mg PO DAILY 02/05/19 [History] Furosemide [Lasix] 40 mg PO BID 02/05/19 [History] Metoprolol Tartrate [Lopressor] 25 mg PO TID 02/05/19 [History] Omeprazole [PriLOSEC] 20 mg PO AC-BRKFST 02/05/19 [History] Potassium Chloride [Klor-Con 10] 10 meq PO DAILY 02/05/19 [History] Aspirin 81 mg PO DAILY #30 chew 02/07/19 [Rx] Nitroglycerin Sl Tabs [Nitrostat] 0.4 mg SUBLINGUAL Q5M PRN #30 tab 02/07/19 [Rx ] Follow up Appointment(s)/Referral(s): Migue Hicks III, MD [Primary Care Provider] - 1-2 days Jacqueline Espinoza MD [STAFF PHYSICIAN] - 2 Weeks
[2019-02-07 17:44] VITALS: BP 130/88; PULSE 96; TEMP 98.2
[2019-02-07] MEDS ORDERED: FAMOTIDINE 20 MG TAB PO SCH (21:00)
== END 2019-02-07 17:49 | disposition home or self-care (01) ==
LOC: EC 17:33 → 1SOBS 20:34
PROVIDERS: ADMIT Hospitalist; ATTEND Hospitalist
DX: I13.0 Hypertensive heart and chronic kidney disease with heart failure and stage 1 through stage 4 chronic kidney disease, or unspecified chronic kidney disease (principal); I50.33 Acute on chronic diastolic (congestive) heart failure; R77.8 Other specified abnormalities of plasma proteins; R79.89 Other specified abnormal findings of blood chemistry; D72.829 Elevated white blood cell count, unspecified; R74.8 Abnormal levels of other serum enzymes; E86.0 Dehydration; I25.10 Atherosclerotic heart disease of native coronary artery without angina pectoris; Z95.5 Presence of coronary angioplasty implant and graft; I48.2 Chronic atrial fibrillation; N18.3 Chronic kidney disease, stage 3 (moderate); E11.22 Type 2 diabetes mellitus with diabetic chronic kidney disease; J44.1 Chronic obstructive pulmonary disease with (acute) exacerbation; E78.5 Hyperlipidemia, unspecified; M19.90 Unspecified osteoarthritis, unspecified site; E66.01 Morbid (severe) obesity due to excess calories; Z68.43 Body mass index [BMI] 50.0-59.9, adult; N42.9 Disorder of prostate, unspecified; M79.89 Other specified soft tissue disorders; Z86.14 Personal history of Methicillin resistant Staphylococcus aureus infection; Z92.21 Personal history of antineoplastic chemotherapy; Z85.72 Personal history of non-Hodgkin lymphomas; Z79.899 Other long term (current) drug therapy; Z79.02 Long term (current) use of antithrombotics/antiplatelets; Z79.01 Long term (current) use of anticoagulants; Z88.0 Allergy status to penicillin
CPT/HCPCS: 96374; 96375; 96376 ×2; 96361; 99291; 36415; 94640 ×4; 93005; 97161; 97166; 85379; 83880; 80061; 80053; 80048; 83605; 83735; 84100; 84132; 84484 ×2; 85025 ×2; 85610; 85730; 81001; 87040; 87086; 87502; 83036; 71046; 93970; G0378 ×3; S0138; J1644 ×2; J1940 ×2

== ENCOUNTER → 2019-05-10 | Outpatient (CLI) | payer BC ==
[2019-05-10 11:05] LABS: Anisocytosis Slight; Basophils % (A) 1 %; Eosinophils # (A) 0.2 k/uL (0-0.7); Eosinophils % (A) 3 %; HCT 41.7 % (39.0-53.0); HGB 13.1 gm/dL (13.0-17.5); Lymphocytes # (A) 1.2 k/uL (1.0-4.8); Lymphocytes % (A) 21 %; MCH 29.5 pg (25.0-35.0); MCHC 31.3 g/dL (31.0-37.0); MCV 94.1 fL (80.0-100.0); Monocytes # (A) 0.3 k/uL (0-1.0); Monocytes % (A) 5 %; Neutrophils # (A) 3.7 k/uL (1.3-7.7); Neutrophils % (A) 68 %; Platelet Count 131 k/uL (150-450); RBC 4.44 m/uL (4.30-5.90); RDW 16.6 % (11.5-15.5); WBC 5.5 k/uL (3.8-10.6)
[2019-05-10 11:28] LABS: Appearance,Urine Clear (Clear); Bilirubin,Urine Negative (Negative); Blood,Urine Negative (Negative); Color,Urine Light Yellow; Glucose,Urine (UA) Negative (Negative); Ketones,Urine Negative (Negative); Leukocyte Esterase,Urine Negative (Negative); Nitrite,Urine Negative (Negative); PH, Urine 6.5 (5.0-8.0); Protein,Urine Negative (Negative); Specific Gravity,Urine 1.007 (1.001-1.035); Urobilinogen,Urine <2.0 mg/dL (<2.0)
[2019-05-10 16:04] LABS: Total Volume 24 Hour,Urine 1850 mL
[2019-05-10 16:20] LABS: Vitamin D 25 Hydroxy 12.9 ng/mL (30.0-100.0)
[2019-05-10 16:21] LABS: Iron Saturation 17.05 (15.00-50.00)
[2019-05-10 16:49] LABS: Parathyroid Hormone Intact 194.7 pg/mL (14.0-72.0)
[2019-05-10 16:54] LABS: Albumin 4.1 g/dL (3.80-4.90); Albumin/Globulin Ratio 1.41 (1.60-3.17); Anion Gap 11.1 mmol/L (4.00-12.00); Calcium 8.9 mg/dL (8.7-10.3); Carbon Dioxide 26.9 mmol/L (21.6-31.8); Creatinine,Urine Random 25.1 mg/dL; Globulin 2.9 g/dL (1.6-3.3); LDL Cholesterol,Calculated 69.4 mg/dL (0.0-131.0); Magnesium 1.9 mg/dL (1.5-2.4); Phosphorus 3.3 mg/dL (2.4-5.1); Potassium 4.2 mmol/L (3.5-5.5); Total Bilirubin 1.6 mg/dL (0.3-1.2); Uric Acid 10.6 mg/dL (3.7-8.7); VLDL Calculation 14.6 mg/dL (5.00-40.00)
[2019-05-10 16:55] LABS: Hepatitis A Antibody IgM Non-Reactive (Non-Reactive); Hepatitis B Core IgM Reactive (Non-Reactive); Total Protein 24 Hour,Urine 181.3 mg/24Hr
[2019-05-10 17:06] LABS: Total Protein,Urine Random 16.2 mg/dL (0.0-13.5)
[2019-05-10 18:12] LABS: Anti-DNA, DS unit <1.0 IU/mL; DNA Double-Stranded NEGATIVE (NEGATIVE)
[2019-05-10 20:59] LABS: Hemoglobin A1C 7.4 % (4.0-6.0)
== END | disposition home or self-care (01) ==
LOC: LABWHC1 10:05
PROVIDERS: ATTEND Internal Medicine
DX: E55.9 Vitamin D deficiency, unspecified (principal); E21.3 Hyperparathyroidism, unspecified; N39.0 Urinary tract infection, site not specified; N18.3 Chronic kidney disease, stage 3 (moderate); D63.1 Anemia in chronic kidney disease; R80.9 Proteinuria, unspecified; M10.9 Gout, unspecified; R53.83 Other fatigue
CPT/HCPCS: 86255; 86160 ×2; 86162; 82570; 80061; 80053; 80074; 84156 ×2; 82728; 81050; 83540; 83550; 83735; 84100; 84550; 85025; 81003; 83516; 82306; 86038; 86225; 83970; 86334; 83883; 83036; 36415; G0103

== ENCOUNTER → 2019-06-05 | Outpatient (CLI) | payer BC ==
--- NOTE | 2019-06-05 15:52 | CT ---
EXAMINATION TYPE: CT ChestAbdPelvis wo con DATE OF EXAM: 06/05/2019 COMPARISON: 12/10/2018 HISTORY: Non Hodgkins Lymphoma CT DLP: 2674.7 mGycm. Automated Exposure Control for Dose Reduction was Utilized. TECHNIQUE: CT scan of the thorax, abdomen and pelvis is performed without IV contrast. FINDINGS: There is motion artifact throughout the examination. LUNGS: There is a 2 mm pulmonary nodule in the right upper lobe on series 4 image 23 that was unchang ed from the prior of 12/10/2018. Questionable pulmonary nodule on image 30 likely relates to prominent vasculature in this unchanged from the prior exam. Given the limitation of motion artifact new discr ete nodules are seen. No pleural effusion or focal consolidation. Right middle lobe tree-in-bud opaci ty has resolved. MEDIASTINUM: There are no greater than 1 cm hilar or mediastinal lymph nodes. No pericardial effusi on is seen. Right-sided Mediport terminates in the superior vena cava right atrial junction. Moderat e coronary calcifications are seen. Small hiatal hernia in the posterior mediastinum. Ascending thora cic aorta is within normal limits measuring approximately 3.7 cm. Enlarged pulmonary artery suggests underlying pulmonary arterial hypertension. LIVER/GB: The liver is again mildly enlarged. Cholelithiasis is seen. Lack of oral contrast limits ev aluation of the liver for underlying hepatic masses as does patient motion. PANCREAS: Pancreatic atrophy is seen diffusely without ductal dilatation. SPLEEN: No significant abnormality is seen. No splenomegaly. ADRENALS: Persistent thickening of the left adrenal gland suggests adrenal gland hyperplasia. Right a drenal gland is unremarkable. KIDNEYS: No hydronephrosis. Punctate calculus is seen in the left kidney on coronal series 6 image 61 measuring 3 mm. BOWEL: Multiple colonic diverticula are seen without pericolonic fat stranding. GENITAL ORGANS: No gross abnormality seen. LYMPH NODES: No greater than 1cm abdominal or pelvic lymph nodes are appreciated. Shotty lymph nodes are seen in the periaortic region that are sub-4 mm. OSSEOUS STRUCTURES: There is a left femoral arthroplasty creating spray artifact limiting evaluation of the surrounding structures of the pelvis. Multilevel degenerative disc disease is seen of the spin e. OTHER: There is a small fat filled umbilical hernia superimposed on diastases recti. Extensive athero sclerosis is seen of the abdominal aorta and its branches. IMPRESSION: 1. No adenopathy within the chest, abdomen, or pelvis. 2. Stable punctate right upper lobe pulmonary nodule dating back to 2018. This is likely benign. 3. Resolution the previously seen right middle lobe tree-in-bud opacity. 4. As seen on the prior incidental note of cholelithiasis, diverticulosis, coronary artery calcificat ions and findings suggesting underlying pulmonary arterial hypertension.
== END | disposition home or self-care (01) ==
LOC: RADCTMAIN 09:32
PROVIDERS: ATTEND Internal Medicine Hematology & Oncology
DX: C85.99 Non-Hodgkin lymphoma, unspecified, extranodal and solid organ sites (principal); R91.8 Other nonspecific abnormal finding of lung field; Z88.8 Allergy status to other drugs, medicaments and biological substances
CPT/HCPCS: 71250; 74176

== ENCOUNTER → 2019-09-10 | Outpatient (CLI) | payer BC ==
[2019-09-10 10:17] LABS: Appearance,Urine Clear (Clear); Bilirubin,Urine Negative (Negative); Blood,Urine Negative (Negative); Color,Urine Light Yellow; Glucose,Urine (UA) Negative (Negative); Ketones,Urine Negative (Negative); Leukocyte Esterase,Urine Negative (Negative); Nitrite,Urine Negative (Negative); PH, Urine 7.5 (5.0-8.0); Protein,Urine Negative (Negative); Specific Gravity,Urine 1.006 (1.001-1.035); Urobilinogen,Urine <2.0 mg/dL (<2.0)
[2019-09-10 10:19] LABS: Basophils # (A) 0.1 k/uL (0-0.2); Basophils % (A) 1 %; Eosinophils # (A) 0.2 k/uL (0-0.7); Eosinophils % (A) 4 %; HCT 43.7 % (39.0-53.0); HGB 13.8 gm/dL (13.0-17.5); Lymphocytes # (A) 1.1 k/uL (1.0-4.8); Lymphocytes % (A) 19 %; MCH 30.3 pg (25.0-35.0); MCHC 31.5 g/dL (31.0-37.0); MCV 96.1 fL (80.0-100.0); Mean Platelet Volume 8.3; Monocytes # (A) 0.3 k/uL (0-1.0); Monocytes % (A) 6 %; Neutrophils # (A) 3.8 k/uL (1.3-7.7); Neutrophils % (A) 67 %; Platelet Count 172 k/uL (150-450); RBC 4.55 m/uL (4.30-5.90); RDW 15.1 % (11.5-15.5); WBC 5.7 k/uL (3.8-10.6)
[2019-09-10 15:50] LABS: Iron Saturation 18.99 (15.00-50.00)
[2019-09-10 15:59] LABS: Ferritin 106.7 ng/mL (22.0-322.0); Vitamin D 25 Hydroxy 29.7 ng/mL (30.0-100.0)
[2019-09-10 16:05] LABS: African American GFR (CKD) 64.1 (60.0-200.0); Albumin/Globulin Ratio 1.43 (1.60-3.17); Anion Gap 9.6 mmol/L (4.00-12.00); BUN/Creat Ratio 25.38 Ratio (12.00-20.00); Calcium 9.3 mg/dL (8.7-10.3); Carbon Dioxide 29.4 mmol/L (21.6-31.8); Globulin 2.8 g/dL (1.6-3.3); Potassium 3.9 mmol/L (3.5-5.5); Total Bilirubin 1.8 mg/dL (0.3-1.2); Total Protein 6.8 g/dL (6.2-8.2); Uric Acid 8.9 mg/dL (3.7-8.7)
[2019-09-10 18:23] LABS: Creatinine,Urine Random 14.8 mg/dL
[2019-09-10 18:35] LABS: Total Protein,Urine Random 8.1 mg/dL (0.0-13.5)
== END | disposition home or self-care (01) ==
LOC: LABWHC1 09:16
PROVIDERS: ATTEND Nurse Practitioner Family
DX: N18.3 Chronic kidney disease, stage 3 (moderate) (principal); D63.1 Anemia in chronic kidney disease; E61.1 Iron deficiency; N25.81 Secondary hyperparathyroidism of renal origin; E55.9 Vitamin D deficiency, unspecified; M10.9 Gout, unspecified; N39.0 Urinary tract infection, site not specified
CPT/HCPCS: 36415; 80053; 81003; 82306; 82570; 82728; 83540; 83550; 83735; 83970; 84100; 84156; 84550; 85025

== ENCOUNTER 2019-10-18 09:51 | Inpatient (IN) | payer MEDICARE, BC ==
[2019-10-18] MEDS ORDERED: SODIUM CHLORIDE 0.9% 1,000 ML IV STA ×2 (10:24)
--- NOTE | 2019-10-18 11:20 | ED ---
Weakness HPI - General Chief complaint: Weakness Stated complaint: Weakness, Leg pain Time Seen by Provider: 10/18/19 10:08 Source: patient, EMS, RN notes reviewed, old records reviewed Mode of arrival: EMS Limitations: no limitations - History of Present Illness Initial comments: Patient is a 69-year-old male, who presents emergency Department today for concerns for left lower sternal any weakness, and dragging his foot with walking. Patient reports that the symptoms have been going on for the past few days. He also complains of a wound over the anterior aspect of his ankle and foot. Patient states these been cheating treating this himself at home. He has a history of peripheral vascular disease, chronic scaling of the lower extremities. He denies any chest pain but is reported he's had a productive cough for the past few weeks. He has not followed up with his primary care doctor in regards to this as well. He does have history of lymphoma, and finished chemotherapy treatment. Patient has had no recent fevers or chills. He denies any falls or trauma. He reports that he has no specific back pain at this time does complain of some pain within the left hip and the left foot. He does have a history of peripheral neuropathy as well. - Related Data Home Medications Medication Instructions Recorded Confirmed Finasteride 5 mg PO DAILY 04/18/14 10/18/19 Simvastatin 20 mg PO DAILY@1200 04/18/14 10/18/19 Edoxaban Tosylate [Savaysa] 60 mg PO DAILY 12/29/16 10/18/19 Furosemide [Lasix] 40 mg PO DAILY 02/05/19 10/18/19 Metoprolol Tartrate [Lopressor] 25 mg PO BID 02/05/19 10/18/19 Potassium Chloride [Klor-Con 10] 10 meq PO DAILY 02/05/19 10/18/19 Allopurinol [Zyloprim] 100 mg PO DAILY 10/18/19 10/18/19 Fluticasone Nasal [place] [Flonase 1 spray EA NOSTRIL DAILY 10/18/19 10/18/19 Nasal [place]] Oxybutynin Chloride 10 mg PO DAILY 10/18/19 10/18/19 Previous Rx's Medication Instructions Recorded Lisinopril [Zestril] 20 mg PO DAILY #1 tab 02/08/17 Nitroglycerin Sl Tabs [Nitrostat] 0.4 mg SUBLINGUAL Q5M PRN #30 tab 02/07/19 Allergies Allergy/AdvReac Type Severity Reaction Status Date / Time Penicillins Allergy Unknown Verified 10/18/19 11:10 Childhood Review of Systems ROS Statement: Those systems with pertinent positive or pertinent negative responses have been documented in the HPI. ROS Other: All systems not noted in ROS Statement are negative. Past Medical History Past Medical History: Atrial Fibrillation, Asthma, Coronary Artery Disease (CAD), Cancer, Hyperlipidemia, Hypertension, Osteoarthritis (OA), Prostate Disorder Additional Past Medical History / Comment(s): WOUNDS TO [employer], STATES HEALING "BOIL" ON RT LEG, August 2016 diagnosed with subcutaneous B cell lymphoma, LAST CHEMO TX 01/2017, back pain WITH LONG PERIODS OF STANDING, PAST HX OF ORAL INSULIN USE, NONE SINCE WT LOSS, hand injury while in [place] requiring multiple graft etc surgeries, infusaport infection IN PAST History of Any Multi-Drug Resistant Organisms: MRSA Date of last positivie culture/infection: 05/18/17 MDRO Source:: RIGHT LEG Past Surgical History: Heart Catheterization With Stent, Joint Replacement, Orthopedic Surgery, Tonsillectomy Additional Past Surgical History / Comment(s): 8 SURGERIES ON right HAND with skin grafts and tendon grafts from his ankle (POST INJURY IN [place]), INFUSAPORT, PTCA 2013 with 2 stents, colonoscopy/polypectomy, total L hip arthroplasty. Past Anesthesia/Blood Transfusion Reactions: Previous Problems w/ Anesthesia Additional Past Anesthesia/Blood Transfusion Reaction / Comment(s): TROUBLE WAKING UP long ago after surgery in the [employer]. Date of Last Stent Placement:: 2013 Past Psychological History: No Psychological Hx Reported Additional Psychological History / Comment(s): . Smoking Status: Never smoker Past Alcohol Use History: None Reported Past Drug Use History: None Reported - Past Family History Mother Family Medical History: COPD, Diabetes Mellitus Additional Family Medical History / Comment(s): Mother of a MO at the age of 61 yrs. She was a heavy smoker. Father History Unknown: Yes Family Medical History: COPD, Diabetes Mellitus, Myocardial Infarction (MO) General Exam - General Exam Comments Initial Comments: 69-year-old male. Alert and oriented. No significant distress. Limitations: no limitations General appearance: alert, in no apparent distress Head exam: Present: atraumatic, normocephalic, normal inspection Eye exam: Present: normal appearance, PERRL, EOMI. Absent: scleral icterus, conjunctival injection, periorbital swelling ENT exam: Present: normal exam, mucous membranes moist Neck exam: Present: normal inspection. Absent: tenderness, meningismus, lymphadenopathy Respiratory exam: Present: normal lung sounds bilaterally. Absent: respiratory distress, wheezes, rales, rhonchi, stridor Cardiovascular Exam: Present: regular rate, normal rhythm, normal heart sounds. Absent: systolic murmur, diastolic murmur, rubs, gallop, clicks GI/Abdominal exam: Present: soft, normal bowel sounds. Absent: distended, tenderness, guarding, rebound, rigid Extremities exam: Present: full ROM, normal capillary refill, other (Patient has edematous, scaling skin over lower extremities. Reports he has poor sensation due to chronic neuropathy. Patient has some poor hygiene, with dog hair between folds of skin and feet and ankle.). Absent: normal inspection, tenderness, pedal edema, joint swelling, calf tenderness Back exam: Present: normal inspection Neurological exam: Present: alert, oriented X3, CN II-XII intact Psychiatric exam: Present: normal affect, normal mood Skin exam: Present: warm, dry, intact, normal color. Absent: rash Course Vital Signs 10/18/19 10:18 Temperature 98.5 F Pulse Rate 64 Respiratory 16 Rate Blood Pressure 136/89 O2 Sat by Pulse 98 Oximetry EKG Findings - EKG Comments: EKG Findings:: EKG shows atrial fibrillation, left axis deviation. Right bundle branch block. 64 beats are minutes of ventricular rate, normal ND interval undetected. QRS ration is 152 ms. QRS T QTc is 466/480 ms. Medical Decision Making - Medical Decision Making 69-year-old female presents today for right left lower sternum any weakness,'s and worsens when lower extremities. He also has a wound over his dorsum of his foot. Patient was started on IV Kefzol. Patient blood cultures obtained. Patient does complain also cough. He does have full range of motion of his lower extremities, and full strength or my exam. He states he just seems these been dragging his left leg behind him. Could be resultant from infection or sternal swelling. I discussed putting the Patient on IV antibiotics, wound care management. Aerobic wound culture was completed. Is also also putting the Patient on Lasix help with peripheral edema and elevated BNP. - Lab Data Result diagrams: 10/18/19 11:30 10/18/19 11:30 Lab Results 10/18/19 10/18/19 10/18/19 Range/Units 10:11 11:30 11:30 WBC 7.0 (3.8-10.6) k/uL RBC 4.53 (4.30-5.90) m/uL Hgb 13.7 (13.0-17.5) gm/dL Hct 42.6 (39.0-53.0) % MCV 94.1 (80.0-100.0) fL MCH 30.2 (25.0-35.0) pg MCHC 32.2 (31.0-37.0) g/dL RDW 14.4 (11.5-15.5) % Plt Count 158 (150-450) k/uL Neutrophils % 73 % Lymphocytes % 15 % Monocytes % 6 % Eosinophils % 3 % Basophils % 2 % Neutrophils # 5.1 (1.3-7.7) k/uL Lymphocytes # 1.0 (1.0-4.8) k/uL Monocytes # 0.4 (0-1.0) k/uL Eosinophils # 0.2 (0-0.7) k/uL Basophils # 0.1 (0-0.2) k/uL PT (9.0-12.0) sec INR (<1.2) APTT (22.0-30.0) sec Sodium 140 (137-145) mmol/L Potassium 4.3 (3.5-5.1) mmol/L Chloride 100 (98-107) mmol/L Carbon Dioxide 33 H (22-30) mmol/L Anion Gap 7 mmol/L BUN 36 H (9-20) mg/dL Creatinine 1.17 (0.66-1.25) mg/dL Est GFR (CKD-EPI)AfAm 73 (>60 ml/min/1.73 sqM) Est GFR (CKD-EPI)NonAf 63 (>60 ml/min/1.73 sqM) Glucose 160 H (74-99) mg/dL Plasma Lactic Acid Walter (0.7-2.0) mmol/L Calcium 9.3 (8.4-10.2) mg/dL Magnesium 2.0 (1.6-2.3) mg/dL Total Bilirubin 1.3 (0.2-1.3) mg/dL AST 35 (17-59) U/L ALT 37 (21-72) U/L Alkaline Phosphatase 100 (38-126) U/L Troponin I (0.000-0.034) ng/mL NT-Pro-B Natriuret Pep pg/mL Total Protein 7.4 (6.3-8.2) g/dL Albumin 3.9 (3.5-5.0) g/dL Urine Color Light Yellow Urine Appearance Clear (Clear) Urine pH 6.5 (5.0-8.0) Ur Specific [place] 1.009 (1.001-1.035) Urine Protein Negative (Negative) Urine Glucose (UA) Negative (Negative) Urine Ketones Negative (Negative) Urine Blood Negative (Negative) Urine Nitrite Negative (Negative) Urine Bilirubin Negative (Negative) Urine Urobilinogen <2.0 (<2.0) mg/dL Ur Leukocyte Esterase Negative (Negative) 10/18/19 10/18/19 10/18/19 Range/Units 11:30 11:30 11:30 WBC (3.8-10.6) k/uL RBC (4.30-5.90) m/uL Hgb (13.0-17.5) gm/dL Hct (39.0-53.0) % MCV (80.0-100.0) fL MCH (25.0-35.0) pg MCHC (31.0-37.0) g/dL RDW (11.5-15.5) % Plt Count (150-450) k/uL Neutrophils % % Lymphocytes % % Monocytes % % Eosinophils % % Basophils % % Neutrophils # (1.3-7.7) k/uL Lymphocytes # (1.0-4.8) k/uL Monocytes # (0-1.0) k/uL Eosinophils # (0-0.7) k/uL Basophils # (0-0.2) k/uL PT 11.4 (9.0-12.0) sec INR 1.1 (<1.2) APTT 27.2 (22.0-30.0) sec Sodium (137-145) mmol/L Potassium (3.5-5.1) mmol/L Chloride (98-107) mmol/L Carbon Dioxide (22-30) mmol/L Anion Gap mmol/L BUN (9-20) mg/dL Creatinine (0.66-1.25) mg/dL Est GFR (CKD-EPI)AfAm (>60 ml/min/1.73 sqM) Est GFR (CKD-EPI)NonAf (>60 ml/min/1.73 sqM) Glucose (74-99) mg/dL Plasma Lactic Acid Walter 1.2 (0.7-2.0) mmol/L Calcium (8.4-10.2) mg/dL Magnesium (1.6-2.3) mg/dL Total Bilirubin (0.2-1.3) mg/dL AST (17-59) U/L ALT (21-72) U/L Alkaline Phosphatase (38-126) U/L Troponin I 0.018 (0.000-0.034) ng/mL NT-Pro-B Natriuret Pep pg/mL Total Protein (6.3-8.2) g/dL Albumin (3.5-5.0) g/dL Urine Color Urine Appearance (Clear) Urine pH (5.0-8.0) Ur Specific [place] (1.001-1.035) Urine Protein (Negative) Urine Glucose (UA) (Negative) Urine Ketones (Negative) Urine Blood (Negative) Urine Nitrite (Negative) Urine Bilirubin (Negative) Urine Urobilinogen (<2.0) mg/dL Ur Leukocyte Esterase (Negative) 10/18/19 Range/Units 11:30 WBC (3.8-10.6) k/uL RBC (4.30-5.90) m/uL Hgb (13.0-17.5) gm/dL Hct (39.0-53.0) % MCV (80.0-100.0) fL MCH (25.0-35.0) pg MCHC (31.0-37.0) g/dL RDW (11.5-15.5) % Plt Count (150-450) k/uL Neutrophils % % Lymphocytes % % Monocytes % % Eosinophils % % Basophils % % Neutrophils # (1.3-7.7) k/uL Lymphocytes # (1.0-4.8) k/uL Monocytes # (0-1.0) k/uL Eosinophils # (0-0.7) k/uL Basophils # (0-0.2) k/uL PT (9.0-12.0) sec INR (<1.2) APTT (22.0-30.0) sec Sodium (137-145) mmol/L Potassium (3.5-5.1) mmol/L Chloride (98-107) mmol/L Carbon Dioxide (22-30) mmol/L Anion Gap mmol/L BUN (9-20) mg/dL Creatinine (0.66-1.25) mg/dL Est GFR (CKD-EPI)AfAm (>60 ml/min/1.73 sqM) Est GFR (CKD-EPI)NonAf (>60 ml/min/1.73 sqM) Glucose (74-99) mg/dL Plasma Lactic Acid Walter (0.7-2.0) mmol/L Calcium (8.4-10.2) mg/dL Magnesium (1.6-2.3) mg/dL Total Bilirubin (0.2-1.3) mg/dL AST (17-59) U/L ALT (21-72) U/L Alkaline Phosphatase (38-126) U/L Troponin I (0.000-0.034) ng/mL NT-Pro-B Natriuret Pep 5400 pg/mL Total Protein (6.3-8.2) g/dL Albumin (3.5-5.0) g/dL Urine Color Urine Appearance (Clear) Urine pH (5.0-8.0) Ur Specific [place] (1.001-1.035) Urine Protein (Negative) Urine Glucose (UA) (Negative) Urine Ketones (Negative) Urine Blood (Negative) Urine Nitrite (Negative) Urine Bilirubin (Negative) Urine Urobilinogen (<2.0) mg/dL Ur Leukocyte Esterase (Negative) - Radiology Data Radiology results: report reviewed Foot x-rays negative for any acute fracture-dislocation. Hip x-rays negative for any acute fracture dislocation. No evidence of acute critical coronary disease on chest x-ray. Disposition Clinical Impression: Leg wound, left, Weakness, HTN (hypertension), Bilateral lower extremity edema, Afib, Dyspnea on exertion Disposition: ADMITTED IP TO THIS [facility] Condition: Good Is patient prescribed a controlled substance at d/c from ED?: No Referrals: Migue Hicks III, MD [Primary Care Provider] - 1-2 days Time of Disposition: 12:56
[2019-10-18 11:26] LABS: Appearance,Urine Clear (Clear); Bilirubin,Urine Negative (Negative); Blood,Urine Negative (Negative); Color,Urine Light Yellow; Glucose,Urine (UA) Negative (Negative); Ketones,Urine Negative (Negative); Leukocyte Esterase,Urine Negative (Negative); Nitrite,Urine Negative (Negative); PH, Urine 6.5 (5.0-8.0); Protein,Urine Negative (Negative); Specific Gravity,Urine 1.009 (1.001-1.035); Urobilinogen,Urine <2.0 mg/dL (<2.0)
[2019-10-18 11:50] LABS: Basophils # (A) 0.1 k/uL (0-0.2); Basophils % (A) 2 %; Eosinophils # (A) 0.2 k/uL (0-0.7); Eosinophils % (A) 3 %; HCT 42.6 % (39.0-53.0); HGB 13.7 gm/dL (13.0-17.5); Lymphocytes % (A) 15 %; MCH 30.2 pg (25.0-35.0); MCHC 32.2 g/dL (31.0-37.0); MCV 94.1 fL (80.0-100.0); Mean Platelet Volume 8.2; Monocytes # (A) 0.4 k/uL (0-1.0); Monocytes % (A) 6 %; Neutrophils # (A) 5.1 k/uL (1.3-7.7); Neutrophils % (A) 73 %; Platelet Count 158 k/uL (150-450); RBC 4.53 m/uL (4.30-5.90); RDW 14.4 % (11.5-15.5)
--- NOTE | 2019-10-18 12:00 | XR ---
EXAMINATION TYPE: XR Hip Complete LT DATE OF EXAM: 10/18/2019 CLINICAL HISTORY: pain TECHNIQUE: AP and frogleg views of the left hip are obtained. COMPARISON: None. FINDINGS: Total left hip arthroplasty is noted be in place with femoral and acetabular components raine earing well seated. No evidence for acute fracture or dislocation. IMPRESSION: 1. There is no acute fracture or dislocation.ICD 10 NO FRACTURE, INITIAL EVALUATION
--- NOTE | 2019-10-18 12:00 | XR ---
EXAMINATION TYPE: XR chest 2V DATE OF EXAM: 10/18/2019 COMPARISON: 02/05/2019 HISTORY: Shortness of breath TECHNIQUE: Frontal and lateral views of the chest are obtained. FINDINGS: Scattered senescent parenchymal changes noted. Hyperinflation compatible with COPD. No evidence for infiltrate. No evidence for atelectasis. Heart size is stable. Mediastinal structures are stable and grossly unremarkable. No evidence for hilar prominence. Degenerative changes dorsal spine. IMPRESSION: 1. No evidence for acute pulmonary disease.
[2019-10-18 12:02] LABS: Albumin 3.9 g/dL (3.5-5.0); Calcium 9.3 mg/dL (8.4-10.2); Total Bilirubin 1.3 mg/dL (0.2-1.3); Total Protein 7.4 g/dL (6.3-8.2)
--- NOTE | 2019-10-18 12:03 | XR ---
EXAMINATION TYPE: XR foot limited LT DATE OF EXAM: 10/18/2019 CLINICAL HISTORY: pain TECHNIQUE: Frontal, lateral images of the left foot are obtained. COMPARISON: None. FINDINGS: Extensive soft tissue swelling noted about the dorsum of the left foot. Correlate for under lying infection. No evidence for displaced fracture. IMPRESSION: There is no acute fracture or dislocation. ICD 10 NO FRACTURE, INITIAL EVALUATION
[2019-10-18 12:07] LABS: Potassium 4.3 mmol/L (3.5-5.1)
[2019-10-18 12:10] LABS: INR 1.1 (<1.2); Partial Thromboplastin Time 27.2 sec (22.0-30.0); Prothrombin Time 11.4 sec (9.0-12.0)
[2019-10-18] MEDS ORDERED: MORPHINE SULFATE 4 MG/ML SYRINGE IV PRN (12:56)
[2019-10-18] MEDS ORDERED: ACETAMINOPHEN TAB 325 MG TAB PO PRN (12:56)
[2019-10-18] MEDS ORDERED: IBUPROFEN 400 MG TAB PO PRN (12:56)
[2019-10-18] MEDS ORDERED: NALOXONE 0.4 MG/ML 1 ML VIAL IV PRN (12:56)
[2019-10-18] MEDS ORDERED: KETOROLAC 30 MG/ML 1 ML VIAL IVP PRN (12:56)
[2019-10-18] MEDS ORDERED: ONDANSETRON 4 MG/2 ML VIAL IVP PRN (12:56)
[2019-10-18] MEDS ORDERED: FUROSEMIDE 10 MG/ML 4 ML VIAL IV STA (12:58)
[2019-10-18] MEDS ORDERED: ceFAZolin 3 GM in SODIUM CHLORIDE 0.9% 100 ML IVPB ONE (13:00)
[2019-10-18] MEDS: SODIUM CHLORIDE 0.9% 1,000 ML IV SCH ×3 (13:44→23:40)
[2019-10-18] MEDS ORDERED: INFLUENZA VACCINE (6 MOS+) 60 MCG/0.5 ML SYRINGE IM ONE (14:44)
[2019-10-18 17:04] LABS: Glucose,Whole Blood 132 mg/dL (75-99)
[2019-10-18] MEDS: INSULIN ASPART (NovoLOG) 100 UNIT/ML VIAL SQ SCH ×2 (17:11→20:22)
[2019-10-18 19:56] LABS: Glucose,Whole Blood 147 mg/dL (75-99)
[2019-10-18] MEDS: METOPROLOL TARTRATE 25 MG TAB PO SCH (20:22)
[2019-10-18] MEDS ORDERED: NITROGLYCERIN SL TABS 0.4 MG TAB SUBLINGUAL PRN (23:54)
[2019-10-18] MEDS ORDERED: TEMAZEPAM 15 MG CAP PO PRN (23:56)
[2019-10-18] MEDS ORDERED: ALPRAZolam 0.25 MG TAB PO PRN (23:56)
[2019-10-18] MEDS ORDERED: HYDROcodone/APAP 5-325MG 1 EACH TAB PO PRN (23:56)
[2019-10-19 03:38] LABS: Cholesterol 127 mg/dL (<200); HDL Cholesterol 39 mg/dL (40-60); LDL Cholesterol,Calculated 72 mg/dL (0-99); Triglycerides 78 mg/dL (<150)
[2019-10-19 07:16] LABS: Glucose,Whole Blood 140 mg/dL (75-99)
[2019-10-19] MEDS: INSULIN ASPART (NovoLOG) 100 UNIT/ML VIAL SQ SCH ×4 (07:20→20:55)
[2019-10-19] MEDS: FLUTICASONE 50MCG/SPRAY NASAL 16GM EA NOSTRIL SCH (09:21)
[2019-10-19] MEDS: ALLOPURINOL 100 MG TAB PO SCH (09:23)
[2019-10-19] MEDS: METOPROLOL TARTRATE 25 MG TAB PO SCH ×2 (09:23→20:55)
[2019-10-19] MEDS: FINASTERIDE 5 MG TAB PO SCH (09:23)
[2019-10-19] MEDS: LISINOPRIL 20 MG TAB PO SCH (09:23)
[2019-10-19] MEDS: PANTOPRAZOLE 40 MG TABLET PO SCH (09:23)
[2019-10-19] MEDS: ASPIRIN 81 MG PO SCH (09:23)
[2019-10-19] MEDS: OXYBUTYNIN 10 MG TAB.ER.24 PO SCH (09:23)
[2019-10-19] MEDS: FUROSEMIDE 40 MG TAB PO SCH (09:23)
[2019-10-19] MEDS: POTASSIUM CHLORIDE ER 10 MEQ TAB.ER.PRT PO SCH (09:23)
[2019-10-19] MEDS: EDOXABAN TOSYLATE 60 MG TABLET PO SCH (09:23)
--- NOTE | 2019-10-19 09:44 | HP ---
HISTORY AND PHYSICAL DATE OF SERVICE: 10/18/2019. CHIEF COMPLAINTS: Swelling and pain of the left leg with ulceration from the ankle and as well as dragging of the left foot. HISTORY OF PRESENT ILLNESS: This 69-year-old gentleman with a past medical history of multiple medical problems including atrial fibrillation, history of asthma, history of CAD, history of CHF, hypertension, hyperlipidemia, history of lymphoma, history of peripheral vascular disease, history of coronary artery disease/ stent being followed by Dr. 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 The patient had significant peripheral vascular disease for which not much treatment could be offered according to the patient. No records available at this time. The patient was complaining of increased pain and swelling of the right leg and an open area in front of the left ankle was also noted which was likely infected with some redness tracking both above and below the wound. Otherwise, the patient also complaining of some dragging of the foot. Patient not complaining of significant weakness, but the patient reports that even while going to the bathroom the patient has to drag the feet on the left foot, which is rather unusual. There is no history of fever, rigors or chills. No history of headache, loss of consciousness or seizures. PAST MEDICAL HISTORY: Atrial fibrillation, history of CAD, history of CHF, hypertension, hyperlipidemia, history of peripheral vascular disease, history of chemotherapy, history of cutaneous B- cell lymphoma, history of MRSA, history of coronary artery disease/stent. MEDICATIONS: Home medications are: 1. Simvastatin 20 mg p.o. daily. 2. Nitro 0.4 sublingual p.r.n. 3. Klor-Con 10 mEq p.o. daily. 4. Zestril 20 mg p.o. daily. 5. Finasteride 5 mg p.o. daily. 6. Lopressor 25 mg p.o. b.i.d. 7. Oxybutynin 10 mg p.o. daily. 8. Lasix 40 mg p.o. daily. 9. Flonase 1 spray daily. 10.Savaysa 60 mg p.o. daily. 11.Zyloprim 100 mg p.o. daily. ALLERGIES: PENICILLIN. FAMILY HISTORY: Family history of COPD and diabetes mellitus. SOCIAL HISTORY: History of smoking. No history of alcohol intake. REVIEW OF SYSTEMS: ENT: No diminished vision. No diminished hearing. CARDIOVASCULAR: No angina or palpitations, otherwise as mentioned. RESPIRATIONS: No cough or hemoptysis. GI no nausea or vomiting. no dysuria or hematuria. NERVOUS SYSTEM: No numbness or weakness. ALLERGY/IMMUNOLOGY: No asthma or hayfever. MUSCULOSKELETAL as mentioned earlier. HEMATOLOGY/ONCOLOGY: No history of anemia. ENDOCRINE: No history of diabetes or hypothyroidism. CONSTITUTIONAL: As mentioned earlier. DERMATOLOGY: Negative. RHEUMATOLOGY: Negative. PSYCHIATRY as mentioned earlier. PHYSICAL EXAMINATION: Alert and oriented x2. Pulse is 60. Blood pressure 120/74, respiration 14, temperature 98.1. Pulse ox 100 percent on 2 L nasal cannula. HEENT: Conjunctivae normal. Oral mucosa moist. Neck is no jugular venous distention. No carotid bruit. No lymph node enlargement. CARDIOVASCULAR S1, S2 muffled. No S3, no S4. RESPIRATORY: Breath sounds diminished in the bases. No rhonchi. No crackles. ABDOMEN: Soft, obese, nontender. No mass palpable. LEGS: Bilateral leg swelling, left more than the right and also significant acute ulceration in front of the left ankle. Otherwise, swelling of the left foot also present and tender. Chronic changes also present. NERVOUS SYSTEM: Higher functions as mentioned earlier. Moves all 4 limbs. Minimal weakness both lower limbs present. Otherwise no sensory abnormalities. LYMPHATICS: No lymph nodes palpable in the neck, axillae or groin. JOINTS no active deforming arthropathy. SKIN as mentioned earlier. LABS: WBC 7, hemoglobin 13.7. BUN is 36, creatinine is 1.17, glucose 160. Other labs are noted. ASSESSMENT: 1. Acute left ankle ulceration with surrounding cellulitis. 2. Weakness of the left leg, rule out transient ischemic attack or stroke. 3. Super morbid obesity BMI of 47.5. 4. History of persistent atrial fibrillation on Savaysa. 5. Asthma, chronic intermittent. 6. History of coronary artery disease. 7. History of cutaneous B-cell lymphoma status post chemotherapy. 8. History of congestive heart failure, ejection fraction unknown. 9. Hypertension. 10.Hyperlipidemia. 11.History of degenerative joint disease. 12.History of prostate disorder. 13.History of peripheral vascular disease. 14.Diabetes mellitus type 2, on no medications because of the weight loss. 15.Peripheral neuropathy, probably related to diabetes mellitus. 16.History of benign colonic polyps. 17.History of MRSA. 18.History of coronary artery disease/ stent. 19.History of tonsillectomy. 20.History of claustrophobia. 21.FULL CODE. RECOMMENDATIONS AND DISCUSSION: In this 69-year-old gentleman who presented with multiple medical issues, at this time, I recommend to continue current medications, current management. I recommend continue with cefazolin. Obtain cultures. Infectious disease evaluation. Also get neuro checks and CT scan of the brain also. Resume the home medications. Otherwise, prognosis guarded because of multiple complex medical issues. We will cut down the IV fluids to 20 mL hour and further recommendations to follow. A copy of this dictation being forwarded to Dr. Hicks who is the primary physician. Recommend antiplatelet agents as well. MMODL / IJN: [id number] /
[2019-10-19 11:29] LABS: Glucose,Whole Blood 167 mg/dL (75-99)
[2019-10-19] MEDS: MULTIVITAMINS, THERA 1 EACH TAB PO SCH (12:38)
[2019-10-19] MEDS: ATORVASTATIN 10 MG TAB PO SCH (12:38)
--- NOTE | 2019-10-19 13:43 | CT ---
EXAMINATION TYPE: CT brain wo con DATE OF EXAM: 10/19/2019 HISTORY: Lt leg weakness COMPARISON: None TECHNIQUE: 1. Axial CT images of the head without contrast. Bone windows and sagittal and coronal reformats were reviewed. 2. CT DLP: 1147.4 mGycm Automated exposure control for dose reduction was used. FINDINGS: No acute intracranial hemorrhage. Scattered periventricular and deep cortical white matter areas of l ow attenuation, likely representing sequela of chronic microangiopathy. No acute loss of camacho-white m atter differentiation to suggest large territorial infarction. Mild cerebral volume loss with appropriate size and morphology of the ventricular system. No extra-ax ial fluid collections or midline shift of structures. Patent basal cisterns. No depressed or displaced calvarial fracture. Fat density lesion overlying the right occipital bone c ompatible with lipoma measuring 5.7 x 4.2 cm TR by AP dimension. Intracranial vascular calcifications . Nonaggressive mucosal thickening of the left maxillary sinus. The orbits and skull base are unremar kable. IMPRESSION: 1. No acute intracranial abnormality. 2. Senescent changes including cerebral volume loss and sequale of chronic microangiopathy. 3. If there is sufficient clinical concern for acute ischemia, further evaluation with brain MRI is r ecommended.
[2019-10-19 16:15] LABS: Glucose,Whole Blood 156 mg/dL (75-99)
--- NOTE | 2019-10-19 16:19 | US ---
EXAMINATION TYPE: US carotid duplex BILAT DATE OF EXAM: 10/19/2019 COMPARISON: NONE CLINICAL HISTORY: 69-year-old male stroke. TIA TECHNIQUE: Carotid duplex ultrasound examination. Indirect Doppler criteria was utilized. FINDINGS: EXAM MEASUREMENTS: RIGHT: Peak Systolic Velocity (PSV) cm/sec ----- Right CCA: 46.8 ----- Right ICA: 54.6 ----- Right ECA: 71.6 ICA/CCA ratio: 1.2 RIGHT: End Diastole cm/sec ----- Right CCA: 12.9 ----- Right ICA: 12.9 ----- Right ECA: 11.6 LEFT: Peak Systolic Velocity (PSV) cm/sec ----- Left CCA: 45.5 ----- Left ICA: 65.1 ----- Left ECA: 129.9 ICA/CCA ratio: 1.4 LEFT: End Diastole cm/sec ----- Left CCA: 19.4 ----- Left ICA: 14.2 ----- Left ECA: 0 VERTEBRALS (direction of flow): Right Vertebral: Antegrade Left Vertebral: Antegrade Rhythm: Normal Winder Helper notes: Exam limitations due to vessels diving deep. No significant stenosis seen IMPRESSION: Vessels dive deep causing some technical limitations. No hemodynamically significant ICA stenosis see n on either side. Criteria for Assigning % of Stenosis / Diameter reduction (Estimation based on the indirect measurements of the internal carotid artery velocities (ICA PSV). 1. Normal (no stenosis)=ICA PSV < 125 cm/s: ratio < 2.0: ICA EDV<40 cm/s. 2. Less than 50% stenosis=ICA PSV < 125 cm/s: ratio < 2.0: ICA EDV<40 cm/s. 3. 50 to 69% stenosis=ICA PSV of 125 to 230 cm/s: ration 2.0 ? 4.0: ICA EDV 40-100 cm/s. 4. Greater than 70% stenosis to near occlusion= ICA PSV > 230 cm/s: ratio > 4.0: ICA EDV > 100 cm/s. 5. Near occlusion= ICA PSV velocities may be low or undetectable: variable ratio and ICA EDV. 6. Total occlusion=unable to detect flow.
--- NOTE | 2019-10-19 18:44 | PN ---
PROGRESS NOTE DATE OF SERVICE: 10/19/2019. This 69-year-old gentleman admitted with pain and swelling and infection of the left leg also complaining of dragging of the left leg and some weakness. A CT scan of the brain was done to rule out the possibility of acute stroke. CT scan showed no acute abnormality. abnormalities are noted. PAST MEDICAL HISTORY: Reviewed. REVIEW OF SYSTEMS: CARDIOVASCULAR SYSTEM: No angina or palpitations. RESPIRATIONS: No cough. GASTROINTESTINAL: As mentioned earlier. NERVOUS SYSTEM: As mentioned earlier. MUSCULOSKELETAL: As mentioned earlier. CURRENT MEDICATIONS: Reviewed and include: 1. Tylenol p.r.n. 2. [place] 5 mg q.6h p.r.n. 3. Zyloprim 100 mg p.o. daily. 4. Xanax 0.5 t.i.d. 5. Aspirin 81 mg p.o. daily. 6. Lipitor 10 mg p.o. daily. 7. Cefazolin 2 g IV q.8h. 8. Savaysa 60 mg p.o. daily. 9. Proscar 5 mg p.o. daily. 10.Flonase. 11.Lasix 40 mg p.o. daily. 12.Motrin p.r.n. 13.NovoLog scale. 14.Toradol. 15.Zestril. 16.Lopressor. 17.Multivitamins. 18.Narcan. 19.Zofran. 20.Ditropan XL 10 mg p.o. daily. 21.Protonix 40 mg daily. 22.K-Dur 10 mEq p.o. daily. 23.Restoril 15 mg q.h.s. p.r.n. PHYSICAL EXAM: Patient is alert, oriented x3. Pulse is 72. Blood pressure 135/76, respirations 14, temperature 97.4, pulse ox 99% on 2 L. HEENT: Conjunctivae normal. NECK: No jugular venous distention. CARDIOVASCULAR: S1, S2 muffled. RESPIRATIONS: Breath sounds diminished in the bases. A few scattered rhonchi and crackles. ABDOMEN: Soft, obese, nontender. No mass palpable. LEGS: Bilateral leg swelling and significant edema also present. Chronic changes present. Otherwise significant cellulitis and ulceration of the left leg present. Minimal weakness, both sides, left more than the right. NERVOUS SYSTEM: No signs of cerebellar dysfunction. No other focal weakness noted. SKIN as mentioned earlier. LABS: Accu-Cheks 141, 167. Other labs are CBC within normal limits and BUN is 36. ASSESSMENT: 1. Acute left ankle ulceration with surrounding cellulitis. 2. Weakness of the left leg, rule out transient ischemic, no evidence of stroke on MRI. 3. Super morbid obesity with BMI of 47.5. 4. History of persistent atrial fibrillation on Savaysa. 5. Asthma, chronic, intermittent. 6. History of coronary artery disease. 7. History of cutaneous B-cell lymphoma status post chemotherapy. 8. History of congestive heart failure, ejection fraction unknown. 9. Hypertension. 10.Hyperlipidemia. 11.History of degenerative joint disease. 12.History of prostate disorder. 13.History of peripheral vascular disease and diabetes type 2, on no medications because of the weight loss. 14.Peripheral neuropathy possibly related diabetes type 2. 15.History of benign colonic polyps. 16.History of MRSA. 17.History of coronary artery disease/stent. 18.History of tonsillectomy. 19.History of claustrophobia. 20.FULL CODE. RECOMMENDATIONS AND DISCUSSION: Recommend to continue with current medications. Continue with monitoring, symptomatic treatment. Continue antiplatelet agents. I would also recommend a neurovascular workup including 2D echo and carotid Doppler. Otherwise, continue with the antibiotics and follow with Infectious Disease. CT scan as mentioned earlier did not show any obvious strokes. I would also recommend PT/OT also. Otherwise, guarded prognosis because of multiple complex medical issues and further recommendations to follow. MMODL / IJN: [id number] / YOLY
[2019-10-19 20:37] LABS: Glucose,Whole Blood 162 mg/dL (75-99)
[2019-10-19] MEDS: SODIUM CHLORIDE 0.9% 1,000 ML IV SCH (23:22)
[2019-10-20 07:00] LABS: Glucose,Whole Blood 133 mg/dL (75-99)
[2019-10-20 07:02] LABS: Basophils % (A) 1 %; Eosinophils # (A) 0.2 k/uL (0-0.7); Eosinophils % (A) 4 %; HCT 38.5 % (39.0-53.0); HGB 12.6 gm/dL (13.0-17.5); Lymphocytes # (A) 1.5 k/uL (1.0-4.8); Lymphocytes % (A) 25 %; MCH 30.6 pg (25.0-35.0); MCHC 32.7 g/dL (31.0-37.0); MCV 93.6 fL (80.0-100.0); Mean Platelet Volume 7.7; Monocytes # (A) 0.4 k/uL (0-1.0); Monocytes % (A) 7 %; Neutrophils # (A) 3.7 k/uL (1.3-7.7); Neutrophils % (A) 62 %; Platelet Count 128 k/uL (150-450); RBC 4.11 m/uL (4.30-5.90); RDW 14.4 % (11.5-15.5)
[2019-10-20] MEDS: INSULIN ASPART (NovoLOG) 100 UNIT/ML VIAL SQ SCH ×4 (07:06→20:59)
[2019-10-20 07:12] LABS: Calcium 8.7 mg/dL (8.4-10.2); Potassium 3.2 mmol/L (3.5-5.1)
--- NOTE | 2019-10-20 09:20 | P.CONS ---
History of Present Illness - Reason for Consult Consult date: 10/19/19 Left anterior leg wound and cellulitis Requesting physician: Paris Kwan - Chief Complaint Left leg wound pain swelling redness and drainage 2 days - History of Present Illness Patient is a 69-year-old male with a past medical history significant for chronic lower extremity swelling presenting to the ER with the chief complaints of left leg wound swelling redness and drainage for the last few days patient denies any history of trauma to the left leg did mention started as a blister that has ruptured with drainage of some clear fluid and subsequently malformation of this wound with the patient has been taken care off at home however without any healing he presented to the hospital, the patient denies any fever or chills has been complaining of some dull aching pain to the left leg wound area intensity about 5 out of 10 and no radiation wound base did have some slough tissue surrounding swelling minimal redness he did have some drainage denies foul-smelling with these symptoms the patient was evaluated by the ER physician on arrival to the ER the patient has been afebrile his white count was normal patient did have x-rays of the left foot did not show any bony changes patient has been admitted to the hospital he was started on cefazolin infectious disease was consulted for further recommendation regarding antibiotic therapy Review of Systems Positive point has been mentioned in the HPI rest of the systems are negative 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, CKD stage III, gout, back pain if stands too long, diverticular disease, benign colon polyps, BPH History of Any Multi-Drug Resistant Organisms: MRSA Year Discovered:: 05/18/17 MDRO Source:: RIGHT LEG Past Surgical History: Heart Catheterization With Stent, Joint Replacement, Orthopedic Surgery, Tonsillectomy Additional Past Surgical History / Comment(s): 2013 PCI with 2 stents, infusaport R upper chest, 8 hand surgeries after injury in [place]-skin grafts/tendon repair-skin taken from L upper chest and bilateral ankle tendon donors, L total hip arthroplasty, colonoscopies/benign polyps. Past Anesthesia/Blood Transfusion Reactions: Previous Problems w/ Anesthesia Additional Past Anesthesia/Blood Transfusion Reaction / Comm: Difficulty waking with 2 surgeries performed while in the [employer] Date of Last Stent Placement:: 2013 Smoking Status: Never smoker - Past Family History Mother Family Medical History: COPD, Diabetes Mellitus Additional Family Medical History / Comment(s): Mother of a NV at the age of 61 yrs. She was a heavy smoker. Father History Unknown: Yes Family Medical History: Myocardial Infarction (NV) Additional Family Medical History / Comment(s): Pt does not know father's medical history Medications and Allergies Home Medications Medication Instructions Recorded Confirmed Type Finasteride 5 mg PO DAILY 04/18/14 10/18/19 History Simvastatin 20 mg PO DAILY@1200 04/18/14 10/18/19 History Edoxaban Tosylate [Savaysa] 60 mg PO DAILY 12/29/16 10/18/19 History Lisinopril [Zestril] 20 mg PO DAILY #1 tab 02/08/17 10/18/19 Rx Furosemide [Lasix] 40 mg PO DAILY 02/05/19 10/18/19 History Metoprolol Tartrate [Lopressor] 25 mg PO BID 02/05/19 10/18/19 History Potassium Chloride [Klor-Con 10] 10 meq PO DAILY 02/05/19 10/18/19 History Nitroglycerin Sl Tabs [Nitrostat] 0.4 mg SUBLINGUAL Q5M PRN #30 tab 02/07/19 10/18/19 Rx Allopurinol [Zyloprim] 100 mg PO DAILY 10/18/19 10/18/19 History Fluticasone Nasal [place] [Flonase 1 spray EA NOSTRIL DAILY 10/18/19 10/18/19 History Nasal [place]] Oxybutynin Chloride 10 mg PO DAILY 10/18/19 10/18/19 History Allergies Allergy/AdvReac Type Severity Reaction Status Date / Time Penicillins Allergy Unknown Verified 10/18/19 11:10 Childhood Physical Exam Vitals: Vital Signs Temp Pulse Pulse Resp BP BP Pulse Ox 10/19/19 07:07 72 14 10/19/19 07:00 97.5 F L 72 14 135/76 99 10/19/19 01:41 98.1 F 60 18 131/65 98 10/18/19 18:56 98.1 F 60 14 120/74 100 10/18/19 15:00 98.3 F 64 17 144/88 96 10/18/19 13:30 60 21 116/103 97 10/18/19 13:00 60 20 112/78 96 10/18/19 12:30 70 18 116/68 98 Intake and Output 10/18/19 10/19/19 10/19/19 22:59 06:59 14:59 Intake Total 480 Output Total 400 350 151 Balance -400 130 -151 Intake: Oral 480 Output: Urine 400 350 150 Stool 1 Other: Voiding Method Toilet Toilet # Voids 1 1 1 # Bowel Movements 1 GENERAL DESCRIPTION: An elderly male lying in bed, no distress. No tachypnea or accessory muscle of respiration use. HEENT: Shows Pallor , no scleral icterus. Oral mucous membrane is dry. No pharyngeal erythema or thrush NECK: Trachea central, no thyromegaly. LUNGS: Unlabored breathing. Clear to auscultation anteriorly. No wheeze or crackle. HEART: S1, S2, regular rate and rhythm. No loud murmur ABDOMEN: Soft, no tenderness , guarding or rigidity, no organomegaly EXTREMITIES: Bilateral leg with significant swelling dry scaly skin he did have a wound on the left anterior lower leg area just above the ankle wound base did have slough tissue with minimal surrounding redness no foul-smelling drainage SKIN: No rash, no masses palpable. NEUROLOGICAL: The patient is awake, alert, oriented x3, mood and affect normal. Results CBC & Chem 7: 10/20/19 06:39 10/20/19 06:39 Labs: Abnormal Lab Results - Last 24 Hours (Table) 10/18/19 10/18/19 10/18/19 Range/Units 11:30 17:03 19:54 POC Glucose (mg/dL) 132 H 147 H (75-99) mg/dL HDL Cholesterol 39 L (40-60) mg/dL 10/19/19 10/19/19 Range/Units 07:15 11:27 POC Glucose (mg/dL) 140 H 167 H (75-99) mg/dL HDL Cholesterol (40-60) mg/dL Microbiology - Last 24 Hours (Table) 10/18/19 21:00 Wound Culture - Preliminary Ankle - Left Assessment and Plan Assessment: 1-patient presented to the hospital with left leg nonhealing wound that started as a blister with subsequent rupture in this patient who did have a significant swelling of both lower extremity likely representing a venous stasis ulcer with secondary cellulitis likely from gram-positive skin hellen 2-patient with penicillin ALLERGY limiting the number of antibiotic safety use but no history of anaphylaxis (1) Left leg cellulitis Current Visit: Yes Status: Acute Code(s): L03.116 - CELLULITIS OF LEFT LOWER LIMB SNOMED Code(s): 804808992 (2) Leg wound, left Current Visit: Yes Status: Acute Code(s): S81.802A - UNSPECIFIED OPEN WOUND, LEFT LOWER LEG, INITIAL ENCOUNTER SNOMED Code(s): 876886176 Plan: 1-local wound care with medahoney followed by moist dressing to be changed daily 2-bilateral leg dry scaly skin and should be treated with moisturizing cream and an Ishan wrap to keep the swelling down and the patient will benefit from vascular evaluation regarding his chronic swelling in the legs 3-cefazolin 2 g every 8 hours while waiting for the cultures to finalize We will follow on clinical condition and cultures to further adjust medication if needed Thank you for this consultation will follow this patient with you Time with Patient: Greater than 30
[2019-10-20] MEDS: POTASSIUM CHLORIDE ER 10 MEQ TAB.ER.PRT PO SCH (09:38)
[2019-10-20] MEDS: OXYBUTYNIN 10 MG TAB.ER.24 PO SCH (09:38)
[2019-10-20] MEDS: EDOXABAN TOSYLATE 60 MG TABLET PO SCH (09:38)
[2019-10-20] MEDS: FLUTICASONE 50MCG/SPRAY NASAL 16GM EA NOSTRIL SCH (09:38)
[2019-10-20] MEDS: PANTOPRAZOLE 40 MG TABLET PO SCH (09:38)
[2019-10-20] MEDS: METOPROLOL TARTRATE 25 MG TAB PO SCH ×2 (09:38→20:59)
[2019-10-20] MEDS: LISINOPRIL 20 MG TAB PO SCH (09:39)
[2019-10-20] MEDS: ASPIRIN 81 MG PO SCH (09:39)
[2019-10-20] MEDS: FINASTERIDE 5 MG TAB PO SCH (09:39)
[2019-10-20] MEDS: ALLOPURINOL 100 MG TAB PO SCH (09:39)
[2019-10-20] MEDS: FUROSEMIDE 40 MG TAB PO SCH (09:40)
[2019-10-20] MEDS ORDERED: Potassium Replacement Protocol 1 EACH MISC MISCELLANE PRN (10:41)
[2019-10-20 11:10] LABS: Glucose,Whole Blood 159 mg/dL (75-99)
[2019-10-20] MEDS: ATORVASTATIN 10 MG TAB PO SCH (11:24)
[2019-10-20] MEDS: MULTIVITAMINS, THERA 1 EACH TAB PO SCH (11:24)
--- NOTE | 2019-10-20 15:07 | PN ---
PROGRESS NOTE DATE OF SERVICE: 10/20/2019 This 69-year-old gentleman who was admitted with significant ulcerations and cellulitis on the left side also complains of weakness. The CAT scan and as well as carotid ultrasound did not show any acute abnormality. No chest pain. No palpitations. No fever. EXAM: Alert and oriented x2. Pulse 83. Blood pressure 134/74, respiration 18, temperature 97.8, pulse ox 98% on 2 L. HEENT is conjunctivae normal. Neck: No jugular venous distention. CARDIOVASCULAR: S1, S2 muffled. RESPIRATIONS: Breath sounds diminished in the bases. A few scattered rhonchi and crackles. ABDOMEN is soft nontender. LEGS: Bilateral leg edema. NERVOUS SYSTEM: No focal deficits. LABS: WBC 6, hemoglobin 12.2, sodium 140, potassium 3.2. ASSESSMENT: 1. Acute left ankle ulceration with surrounding cellulitis. 2. Weakness of the left leg, possible transient ischemic attack with no evidence of stroke in the CT scan. 3. Super morbid obesity with a BMI of 47.5. 4. Persistent atrial fibrillation on Savaysa. 5. Asthma, chronic intermittent. 6. History of coronary artery disease. 7. History of cutaneous B-cell lymphoma status post chemotherapy. 8. History of congestive heart failure, ejection fraction unknown. 9. Hypertension. 10.Hyperlipidemia. 11.Hypokalemia. 12.History of degenerative joint disease. 13.History of prostate disorder. 14.History of peripheral vascular disease and diabetes type 2, on no medications because of weight loss. 15.Peripheral neuropathy, possibly secondary to diabetes type 2. 16.History of benign colonic polyps. 17.History of MRSA. 18.History of coronary artery disease/stent. 19.History of tonsillectomy. 20.History of claustrophobia. 21.FULL CODE. RECOMMENDATIONS AND DISCUSSION: Recommend to continue current medications, continue with monitoring, management and symptomatic treatment. Continue with antibiotics. Potassium supplementation. Otherwise, local wrapping. Continue to monitor. Follow with multiple consultants. Prognosis guarded. Further recommendations to follow. MMODL / IJN: [id number] /
[2019-10-20 16:15] LABS: Glucose,Whole Blood 151 mg/dL (75-99)
--- NOTE | 2019-10-20 18:42 | PN ---
PROGRESS NOTE DATE OF SERVICE: 10/20/2019. REASON FOR FOLLOWUP: Left leg wound and cellulitis. INTERVAL HISTORY: The patient is currently afebrile. Patient has been feeling better. Breathing comfortably. The leg swelling persists. The wound did have minimal drainage and signs of some surrounding redness with dressing change by the RN. No nausea, no vomiting. No abdominal pain. No diarrhea. PHYSICAL EXAMINATION: Blood pressure 134/74 with a pulse of 83. Temperature is 97.8. He is 98% on 2 L nasal cannula. General description is an elderly male up in the bed in no distress. Respiratory system: Unlabored breathing. Decreased breath sounds in the bases. No wheeze. Heart S1, S2. Regular rate and rhythm. Abdomen soft, no tenderness. Legs are currently wrapped up. Minimal drainage on the dressing. LABS: Hemoglobin is 12.1, white count 6, BUN of 25, creatinine 1.09. Wound cultures currently pending. DIAGNOSTIC IMPRESSION AND PLAN: Patient with right leg wound with secondary cellulitis. Waiting for the culture to finalize. Continue with cefazolin adjusting it further based on the culture report. MMODL / IJN: [id number] /
[2019-10-20] MEDS: POTASSIUM CHLORIDE ER 20 MEQ TAB.ER PO SCH ×2 (20:22→20:59)
[2019-10-20 20:44] LABS: Glucose,Whole Blood 157 mg/dL (75-99)
[2019-10-20] MEDS: SODIUM CHLORIDE 0.9% 1,000 ML IV SCH (23:46)
[2019-10-21 07:04] LABS: Glucose,Whole Blood 132 mg/dL (75-99)
[2019-10-21] MEDS: FUROSEMIDE 40 MG TAB PO SCH (07:30)
[2019-10-21] MEDS: PANTOPRAZOLE 40 MG TABLET PO SCH (07:31)
[2019-10-21] MEDS: POTASSIUM CHLORIDE ER 10 MEQ TAB.ER.PRT PO SCH (07:31)
[2019-10-21] MEDS: OXYBUTYNIN 10 MG TAB.ER.24 PO SCH (07:31)
[2019-10-21] MEDS: METOPROLOL TARTRATE 25 MG TAB PO SCH ×2 (07:31→19:57)
[2019-10-21] MEDS: ASPIRIN 81 MG PO SCH (07:31)
[2019-10-21] MEDS: LISINOPRIL 20 MG TAB PO SCH (07:31)
[2019-10-21] MEDS: ALLOPURINOL 100 MG TAB PO SCH (07:31)
[2019-10-21] MEDS: FINASTERIDE 5 MG TAB PO SCH (07:31)
[2019-10-21] MEDS: MULTIVITAMINS, THERA 1 EACH TAB PO SCH (07:31)
[2019-10-21] MEDS: EDOXABAN TOSYLATE 60 MG TABLET PO SCH (07:31)
[2019-10-21] MEDS: FLUTICASONE 50MCG/SPRAY NASAL 16GM EA NOSTRIL SCH (07:32)
[2019-10-21] MEDS: INSULIN ASPART (NovoLOG) 100 UNIT/ML VIAL SQ SCH ×4 (07:32→19:57)
[2019-10-21 07:50] LABS: Basophils # (A) 0.1 k/uL (0-0.2); Basophils % (A) 1 %; Calcium 9.1 mg/dL (8.4-10.2); Eosinophils # (A) 0.3 k/uL (0-0.7); Eosinophils % (A) 5 %; HCT 41.8 % (39.0-53.0); HGB 13.3 gm/dL (13.0-17.5); Lymphocytes # (A) 1.5 k/uL (1.0-4.8); Lymphocytes % (A) 26 %; MCHC 31.7 g/dL (31.0-37.0); MCV 94.7 fL (80.0-100.0); Monocytes # (A) 0.4 k/uL (0-1.0); Monocytes % (A) 7 %; Neutrophils # (A) 3.3 k/uL (1.3-7.7); Neutrophils % (A) 57 %; Platelet Count 146 k/uL (150-450); Potassium 4.1 mmol/L (3.5-5.1); RBC 4.42 m/uL (4.30-5.90); RDW 14.4 % (11.5-15.5); WBC 5.8 k/uL (3.8-10.6)
--- NOTE | 2019-10-21 10:11 | ECHOF ---
Referral Reason:Stroke MEASUREMENTS -------- HEIGHT: 185.4 cm WEIGHT: 163.3 kg BP: 130/72 RVIDd: 3.7 cm (< 3.3) IVSd: 1.4 cm (0.6 - 1.1) LVIDd: 6.3 cm (3.9 - 5.3) LVPWd: 1.4 cm (0.6 - 1.1) IVSs: 1.7 cm LVIDs: 4.7 cm LVPWs: 1.6 cm LA Diam: 4.4 cm (2.7 - 3.8) LAESV Index (A-L): 39.91 ml/m Ao Diam: 3.8 cm (2.0 - 3.7) AV Cusp: 2.7 cm (1.5 - 2.6) MV EXCURSION: 21.757 mm (> 18.000) MV EF SLOPE: 113 mm/s (70 - 150) EPSS: 2.2 cm AV maxP.59 mmHg AV meanP.83 mmHg AR PHT: 958 ms RAP: 5.00 mmHg RVSP: 38.79 mmHg FINDINGS -------- A-V paced rhythm. This was a technically difficult study with suboptimal apical views. The left ventricle is mildly dilated. There is moderate concentric left ventricular hypertrophy. Overall left ventricular systolic function is moderately impaired with, an EF between 35 - 40 %. The right ventricle is mild to moderately enlarged. LA is moderately dilated 34-39 ml/m2 The right atrium is normal in size. 5 ml of Lumason was utilized for enhancement of images. Interatrial and interventricular septum intact. There is mild aortic valve sclerosis. There is mild aortic regurgitation. The mitral valve leaflets are mildly thickened. Mild mitral regurgitation is present. Mild tricuspid regurgitation present. There is mild pulmonary hypertension. The right ventricular systolic pressure, as measured by Doppler, is 38.79mmHg. There is no pulmonic regurgitation present. The aortic root is dilated measuring 3.8cm. IVC Not well visulized. There is no pericardial effusion. CONCLUSIONS -------- 1. A-V paced rhythm. 2. This was a technically difficult study with suboptimal apical views. 3. The left ventricle is mildly dilated. 4. There is moderate concentric left ventricular hypertrophy. 5. Overall left ventricular systolic function is moderately impaired with, an EF between 35 - 40 %. 6. The right ventricle is mild to moderately enlarged. 7. LA is moderately dilated 34-39 ml/m2 8. The right atrium is normal in size. 9. Interatrial and interventricular septum intact. 10. There is mild aortic valve sclerosis. 11. There is mild aortic regurgitation. 12. The mitral valve leaflets are mildly thickened. 13. Mild mitral regurgitation is present. 14. Mild tricuspid regurgitation present. 15. There is mild pulmonary hypertension. 16. The right ventricular systolic pressure, as measured by Doppler, is 38.79mmHg. 17. There is no pulmonic regurgitation present. 18. The aortic root is dilated measuring 3.8cm. 19. IVC Not well visulized. 20. There is no pericardial effusion. BONE WORKER: Liv August RDCS
[2019-10-21 12:17] LABS: Glucose,Whole Blood 126 mg/dL (75-99)
[2019-10-21] MEDS: ATORVASTATIN 10 MG TAB PO SCH (12:49)
--- NOTE | 2019-10-21 16:24 | P.PN ---
Subjective Progress Note Date: 10/21/19 Principal diagnosis: This is a 69-year-old male who was recently admitted with significant ulcerations and cellulitis on the left lower extremity along with weakness and is being closely monitored. No acute overnight issues. Patient is currently sitting up in the chair with legs elevated and Ishan wrapped to help minimize swelling. Patient continues to have weakness of the extremities and neurology was consulted. PT/OT are following as well. Currently patient denies any chest pain, shortness of breath, or palpitations. Patient has been afebrile. Patient denies any nausea or vomiting and is tolerating diet. Objective - Vital Signs Vital signs: Vital Signs Temp 97.4 F L 10/21/19 15:00 Pulse 71 10/21/19 15:00 Resp 18 10/21/19 15:00 BP 171/72 10/21/19 15:00 Pulse Ox 98 10/21/19 15:00 Intake & Output 10/20/19 10/21/19 10/21/19 18:59 06:59 18:59 Intake Total 960 Output Total 1 550 Balance -1 -550 960 Intake: Oral 960 Output: Urine 550 Stool 1 Other: Voiding Method Toilet Urinal # Voids 5 3 # Bowel Movements 1 - Exam Gen: This is a 69-year-old male sitting up in the chair with bilateral legs elevated in no acute distress. Temp is 98.2F, pulse is 68, respirations are 18, blood pressure is 160/75, oxygen saturation is 93% on 2 L via nasal cannula. HEENT: Head is atraumatic, normocephalic. Pupils equal, round. Sclerae is anicteric. NECK: Supple. No JVD. No lymphadenopathy. No thyromegaly. LUNGS: Diminished breath sounds at the bases with a few scattered rhonchi noted. No intercostal retractions. HEART: S1, S2 are muffled ABDOMEN: Soft. Obese. Bowel sounds are present. No masses. No tenderness. EXTREMITIES: Bilateral leg edema. No calf tenderness. Bilateral Ishan wraps noted to lower extremities. NEUROLOGICAL: Patient is awake, alert and oriented x3. Cranial nerves 2 through 12 are grossly intact. - Labs CBC & Chem 7: 10/21/19 07:12 10/21/19 07:12 Labs: Abnormal Lab Results - Last 24 Hours (Table) 11/10/20/19 10/21/19 Range/Units 16:14 20:42 07:02 Plt Count (150-450) k/uL Carbon Dioxide (22-30) mmol/L BUN (9-20) mg/dL Glucose (74-99) mg/dL POC Glucose (mg/dL) 151 H 157 H 132 H (75-99) mg/dL 10/21/19 10/21/19 10/21/19 Range/Units 07:12 07:12 12:16 Plt Count 146 L (150-450) k/uL Carbon Dioxide 34 H (22-30) mmol/L BUN 24 H (9-20) mg/dL Glucose 141 H (74-99) mg/dL POC Glucose (mg/dL) 126 H (75-99) mg/dL Microbiology - Last 24 Hours (Table) 10/18/19 11:30 Blood Culture - Preliminary Blood No Growth after 72 hours 10/18/19 21:00 Gram Stain - Preliminary Ankle - Left Wound Culture - Preliminary Coagulase Negative Staph Assessment and Plan Assessment: Acute left ankle ulceration with surrounding cellulitis Weakness of the left leg, possible transient ischemic attack with no evidence of stroke and the computed tomography scan Super morbid obesity with a BMI of 47.5 Persistent atrial fibrillation on Savaysa Asthma, chronic intermittent Hypertension Hyperlipidemia Hypokalemia History of MRSA Peripheral neuropathy, possibly secondary to diabetes mellitus type 2 History of benign colonic polyps History of coronary artery disease/stent History of tonsillectomy History of claustrophobia Full code history of coronary artery disease History of cutaneous B-cell lymphoma status post chemotherapy History of congestive heart failure, ejection fraction unknown History of degenerative joint disease History of prostate disorder History of peripheral vascular disease and diabetes mellitus type 2, on no medications because of weight loss Recommendations and discussion: Recommend to continue current medications, management, and symptomatic treatment. Encouraged the patient to continue with elevating the legs while at rest along with Ishan wraps to help minimize the swelling. Infectious disease is following. Neurology was consulted and is pending at this time. PT/OT is following. Will continue to follow with multiple medical consultations. Prognosis is guarded. Further recommendations to follow.
[2019-10-21 16:48] LABS: Glucose,Whole Blood 153 mg/dL (75-99)
--- NOTE | 2019-10-21 17:47 | PN ---
PROGRESS NOTE DATE OF SERVICE: 10/21/2019. REASON FOR FOLLOWUP: Left leg wound and cellulitis. INTERVAL HISTORY: The patient is currently afebrile. The patient is breathing comfortably. Denies having any chest pain, cough. No nausea or abdominal pain. Pain to the left leg wound area. PHYSICAL EXAMINATION: Blood pressure 131/72 with a pulse of 71, temperature is 97.4, he is 98% on 2 L nasal cannula. General description is an elderly male lying in bed in no distress. Respiratory system: Unlabored breathing, clear to auscultation anteriorly. Heart S1, S2. Regular rate and rhythm. ABDOMEN soft, no tenderness. Left leg wound has just been dressed by the RN mentioned minimal slough tissue, surrounding redness has improved. LABS: Hemoglobin is 13.5 with a white count 5.8, BUN of 24, creatinine 1.09. Local wound culture with coag-negative Staph. DIAGNOSTIC IMPRESSION AND PLAN: Patient with a left leg wound open blister with secondary cellulitis, culture with coag negative Staph, more likely skin hellen. Currently on vancomycin. Will re-evaluate the patient tomorrow at the time of dressing change to determine discharge antibiotics. Continue wound care with [facility]. Continue supportive care. MMODL / IJN: [id number] /
[2019-10-21 19:50] LABS: Glucose,Whole Blood 181 mg/dL (75-99)
[2019-10-21] MEDS: SODIUM CHLORIDE 0.9% 1,000 ML IV SCH (19:58)
[2019-10-22 06:50] LABS: Glucose,Whole Blood 122 mg/dL (75-99)
[2019-10-22] MEDS: INSULIN ASPART (NovoLOG) 100 UNIT/ML VIAL SQ SCH ×2 (07:15→11:55)
[2019-10-22 07:56] LABS: Basophils % (A) 0 %; Eosinophils # (A) 0.3 k/uL (0-0.7); Eosinophils % (A) 4 %; HCT 42.6 % (39.0-53.0); HGB 13.7 gm/dL (13.0-17.5); Lymphocytes # (A) 1.8 k/uL (1.0-4.8); Lymphocytes % (A) 24 %; MCH 30.9 pg (25.0-35.0); MCHC 32.3 g/dL (31.0-37.0); MCV 95.6 fL (80.0-100.0); Mean Platelet Volume 7.3; Monocytes # (A) 0.4 k/uL (0-1.0); Monocytes % (A) 6 %; Neutrophils # (A) 4.8 k/uL (1.3-7.7); Neutrophils % (A) 63 %; Platelet Count 154 k/uL (150-450); RBC 4.45 m/uL (4.30-5.90); RDW 14.5 % (11.5-15.5); WBC 7.6 k/uL (3.8-10.6)
[2019-10-22] MEDS: LISINOPRIL 20 MG TAB PO SCH (07:56)
[2019-10-22] MEDS: ALLOPURINOL 100 MG TAB PO SCH (07:56)
[2019-10-22] MEDS: FINASTERIDE 5 MG TAB PO SCH (07:56)
[2019-10-22] MEDS: FUROSEMIDE 40 MG TAB PO SCH (07:56)
[2019-10-22] MEDS: POTASSIUM CHLORIDE ER 10 MEQ TAB.ER.PRT PO SCH (07:56)
[2019-10-22] MEDS: FLUTICASONE 50MCG/SPRAY NASAL 16GM EA NOSTRIL SCH (07:57)
[2019-10-22] MEDS: METOPROLOL TARTRATE 25 MG TAB PO SCH (07:57)
[2019-10-22] MEDS: OXYBUTYNIN 10 MG TAB.ER.24 PO SCH (07:57)
[2019-10-22] MEDS: EDOXABAN TOSYLATE 60 MG TABLET PO SCH (07:57)
[2019-10-22] MEDS: ASPIRIN 81 MG PO SCH (07:57)
[2019-10-22] MEDS: PANTOPRAZOLE 40 MG TABLET PO SCH (07:57)
[2019-10-22 08:07] LABS: Calcium 9.2 mg/dL (8.4-10.2); Potassium 4.2 mmol/L (3.5-5.1)
[2019-10-22 08:22] VITALS: BP 143/65; PULSE 64; RESP 17; TEMP 97.5
--- NOTE | 2019-10-22 10:34 | P.CNNES ---
History of Present Illness Consult date: 10/22/19 Reason for Consult: Gait dysfunction/weakness Chief complaint: Weakness, neck pain History of Present Illness: HISTORY OF PRESENT ILLNESS: Thank you for allowing me to evaluate Mr. Hamlet Welsh. Mr. Welsh is a 69-year-old man with past medical history of atrial fibrillation, asthma, coronary artery disease, hyperlipidemia, hypertension, osteoarthritis, subcutaneo Heus B-cell lymphoma, wounds in bilateral ankles, presented to [facility] on 10/18/19 for leg pain and weakness, diagnosed with cellulitis, consulting Neurology for persistent leg weakness. Patient states that his leg started having pain and weakness all of a sudden on the day he first came to the hospital. He wasn't even able to walk, but at this time, he's able to walk with walker but with some dragging of his L foot. Patient is able to bend his L knee although with some difficulty. patient states he's had multiple episodes of cellulitis, and he's had issues with a particular swelling in his L foot that has been difficulty to treat. patient denies any headache, nausea, vomiting, dizziness, double/blurry vision. Patient has been having numbness below his knees for many years. He had seen a specialist for neuropathy before, but he stopped going as it always took too long to actually see the doctor on the day of his appointment. Patient denies ever having a stroke in the past. Patient was started on Edoxaban, anticoagulant, after his hip surgery several years ago. PAST MEDICAL HISTORY: atrial fibrillation, asthma, coronary artery disease, hyperlipidemia, hypertension, osteoarthritis, subcutaneous B-cell lymphoma, wounds in bilateral ankles PAST SURGICAL HISTORY: Heart catheterization with stent, 8 surgeries in the right hand with skin grafts in his ankles after injury in [place], total left hip arthroplasty HOME MEDICATIONS: Metoprolol, potassium chloride, allopurinol, Flonase, oxybutynin, furosemide, Finasteride, simvastatin, Edoxaban ALLERGIES: Penicillin SOCIAL HISTORY: Never smoker. FAMILY HISTORY: Mother with COPD and diabetes. She of ME at age 61. Father with COPD, diabetes, ME REVIEW OF SYSTEMS: The 14 systems are reviewed and no additional points are identified compared to the review of systems documented history and physical PHYSICAL EXAMINATION: VITAL SIGNS: T 98.1 HR 59 RR 18 BP 147/77 O2 sat 100% on 2L of O2 via NC GEN.: Morbidly obese, NAD, pleasant and cooperative HEENT: NCAT, sclera without icterus NECK: Supple SKIN AND EXTREMITIES: Warm to touch, b/l LE wrapped, feet are both red and L foot with significant swelling. NEURO: MENTAL STATUS: Patient alert and oriented to self, place, time. Able to name the current president. Speech fluent, able to name and repeat, following all commands readily. No right and left disorientation, neglect. CRANIAL NERVES II THROUGH XII: II: Pupils are equal and reactive to light symmetrically. No afferent pupillary defect. Visual berumen are intact. III, IV, : No ptosis. Extraocular movements full. No nystagmus. V: Facial sensation intact from V1-3. VII. No clear facial asymmetry. VIII: Hearing intact to finger rub bilaterally. IX, X: Symmetric palate elevation. XI: Shoulder shrug intact. XII: Tongue midline without fasciculation or atrophy. MOTOR: Normal bulk/tone. No pronator drift or tremor. Strength is 5/5 in b/l UE. Proximal RLE slightly weaker than LLE, 4/5 vs 4+/5, but patient with hx of slightly RLE weakness after hip surgery. Patient with 4+/5 knee flexion/extension, 4-/5 dorsi/plantarflexion SENSORY: Decreased to light touch below the knees REFLEXES: 2+ in b/l UE. Mute b/l LE. Toes are mute. COORDINATION: Finger to nose intact. No dysmetria. GAIT: Takes many tries to stand with walker near the chair, but he's able to stand on his own. Patient able to take several steps with walker but LLE dragging. DIAGNOSTIC TESTING: LABORATORY: 10/21/19: WBC 5.8 hemoglobin 13.3 platelets 146 sodium 142 potassium 4.1 chloride 101 bicarb 34 BUN 24 creatinine 1.09 glucose 141 Total cholesterol 127 LDL 72 HDL 39 triglycerides 78 TSH 6.080 free T4 0.98 A1c 7.4 IMAGING: CT head without contrast 10/19/2019: No acute intracranial abnormality. Senescent changes including cerebral volume loss and sequelae of chronic microangiopathy. TTE 10/21/19: A-V paced rhythm, LV mildly dilated, LA moderately dilated, RV mild to moder ately enlarged. RA normal in size. EF 35-50%. Carotid Doppler bilateral 10/21/19: No hemodynamically significant ICA stenosis seen on either side. ASSESSMENT/RECOMMENDATIONS: 69-year-old man with past medical history of atrial fibrillation, asthma, coronary artery disease, hyperlipidemia, hypertension, osteoarthritis, subcutaneo Heus B-cell lymphoma, wounds in bilateral ankles, presented to [facility] on 10/18/19 for leg pain and weakness, diagnosed with cellulitis, consulting Neurology for persistent leg weakness. Patient's L foot weakness most likely from cellulitis and noticeable swelling in his L foot. Patient with history of atrial fibrillation on anticoagulation. At this time, no further inpatient work-up recommended. Patient can be seen by outpatient Neurologist for follow up within 3-4 weeks of discharge. Neurology will sign off at this time. Please feel free to contact Neurology again if with additional questions or concerns. 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, CKD stage III, gout, back pain if stands too long, diverticular disease, benign colon polyps, BPH History of Any Multi-Drug Resistant Organisms: MRSA Date of last positivie culture/infection: 05/18/17 MDRO Source:: RIGHT LEG Past Surgical History: Heart Catheterization With Stent, Joint Replacement, Orthopedic Surgery, Tonsillectomy Additional Past Surgical History / Comment(s): 2013 PCI with 2 stents, infusaport R upper chest, 8 hand surgeries after injury in [place]-skin grafts/tendon repair-skin taken from L upper chest and bilateral ankle tendon donors, L total hip arthroplasty, colonoscopies/benign polyps. Past Anesthesia/Blood Transfusion Reactions: Previous Problems w/ Anesthesia Additional Past Anesthesia/Blood Transfusion Reaction / Comment(s): Difficulty waking with 2 surgeries performed while in the [employer] Date of Last Stent Placement:: 2013 Smoking Status: Never smoker - Past Family History Mother Family Medical History: COPD, Diabetes Mellitus Additional Family Medical History / Comment(s): Mother of a ME at the age of 61 yrs. She was a heavy smoker. Father History Unknown: Yes Family Medical History: Myocardial Infarction (ME) Additional Family Medical History / Comment(s): Pt does not know father's medical history Medications and Allergies Home Medications Medication Instructions Recorded Confirmed Type Finasteride 5 mg PO DAILY 04/18/14 10/18/19 History Simvastatin 20 mg PO DAILY@1200 04/18/14 10/18/19 History Edoxaban Tosylate [Savaysa] 60 mg PO DAILY 12/29/16 10/18/19 History Lisinopril [Zestril] 20 mg PO DAILY #1 tab 02/08/17 10/18/19 Rx Furosemide [Lasix] 40 mg PO DAILY 02/05/19 10/18/19 History Metoprolol Tartrate [Lopressor] 25 mg PO BID 02/05/19 10/18/19 History Potassium Chloride [Klor-Con 10] 10 meq PO DAILY 02/05/19 10/18/19 History Nitroglycerin Sl Tabs [Nitrostat] 0.4 mg SUBLINGUAL Q5M PRN #30 tab 02/07/19 10/18/19 Rx Allopurinol [Zyloprim] 100 mg PO DAILY 10/18/19 10/18/19 History Fluticasone Nasal Evans [Flonase 1 spray EA NOSTRIL DAILY 10/18/19 10/18/19 History Nasal Evans] Oxybutynin Chloride 10 mg PO DAILY 10/18/19 10/18/19 History Allergies Allergy/AdvReac Type Severity Reaction Status Date / Time Penicillins Allergy Unknown Verified 10/18/19 11:10 Childhood Physical Examination - Vital Signs Vital Signs: Vital Signs Temp Pulse Resp BP Pulse Ox 10/21/19 18:55 98.1 F 59 L 18 147/77 100 10/21/19 15:00 97.4 F L 71 18 171/72 98 Intake and Output 10/21/19 10/22/19 10/22/19 22:59 06:59 14:59 Output Total 801 Balance -801 Output: Urine 800 Stool 1 Other: Voiding Method Toilet Urinal # Voids 1 Results - Laboratory Findings CBC and BMP: 10/22/19 07:29 10/22/19 07:29 Abnormal Lab Findings: Abnormal Labs 11/22/19 11/22/19 11/22/19 11:30 11:30 17:03 RBC Hgb Hct Plt Count Potassium Carbon Dioxide 33 H BUN 36 H Glucose 160 H POC Glucose (mg/dL) 132 H HDL Cholesterol 39 L 10/18/19 10/19/19 10/19/19 19:54 07:15 11:27 RBC Hgb Hct Plt Count Potassium Carbon Dioxide BUN Glucose POC Glucose (mg/dL) 147 H 140 H 167 H HDL Cholesterol 10/19/19 10/19/19 10/20/19 16:14 20:36 06:39 RBC 4.11 L Hgb 12.6 L Hct 38.5 L Plt Count 128 L Potassium Carbon Dioxide BUN Glucose POC Glucose (mg/dL) 156 H 162 H HDL Cholesterol 10/20/19 10/20/19 10/20/19 06:39 06:59 11:09 RBC Hgb Hct Plt Count Potassium 3.2 L Carbon Dioxide 33 H BUN 25 H Glucose 140 H POC Glucose (mg/dL) 133 H 159 H HDL Cholesterol 10/20/19 10/20/19 10/21/19 16:14 20:42 07:02 RBC Hgb Hct Plt Count Potassium Carbon Dioxide BUN Glucose POC Glucose (mg/dL) 151 H 157 H 132 H HDL Cholesterol 10/21/19 10/21/19 10/21/19 07:12 07:12 12:16 RBC Hgb Hct Plt Count 146 L Potassium Carbon Dioxide 34 H BUN 24 H Glucose 141 H POC Glucose (mg/dL) 126 H HDL Cholesterol 10/21/19 10/21/19 10/22/19 16:46 19:49 06:49 RBC Hgb Hct Plt Count Potassium Carbon Dioxide BUN Glucose POC Glucose (mg/dL) 153 H 181 H 122 H HDL Cholesterol
[2019-10-22 11:45] LABS: Glucose,Whole Blood 140 mg/dL (75-99)
[2019-10-22] MEDS: MULTIVITAMINS, THERA 1 EACH TAB PO SCH (11:55)
[2019-10-22] MEDS: ATORVASTATIN 10 MG TAB PO SCH (11:55)
--- NOTE | 2019-10-22 13:49 | PN ---
PROGRESS NOTE DATE OF SERVICE: 10/22/2019 REASON FOR FOLLOWUP: Left leg wound cellulitis. INTERVAL HISTORY: The patient is currently afebrile. Patient is breathing comfortably. Patient denies having any chest pain. No cough. No nausea, no vomiting or pain to the left leg wound area. PHYSICAL EXAMINATION: Blood pressure is 143/55 with a pulse of 64, temperature 97.5, he is 96% on 2 L nasal cannula. General description is an elderly male, up in the chair in no distress. RESPIRATORY SYSTEM: Unlabored breathing, clear to auscultation anteriorly. HEART: S1, S2. Regular rate and rhythm. ABDOMEN: Soft, no tenderness. Left leg wound and left slough tissue, surrounding redness is improved. No foul smelling drainage. LABS: Wound culture with coag-negative staph. White count 7.6, creatinine is 1.10. DIAGNOSTIC IMPRESSION AND PLAN: Patient with left leg wound with secondary cellulitis. The patient has shown clinical improvement. Antibiotic will be switched over to doxycycline 100 mg twice a day for 10 days. Prescription has been sent to the pharmacy. Local wound care to continue with [facility]. [facility]. Prescription sent. MMODL / IJN: [id number] /
--- NOTE | 2019-10-22 17:01 | P.DS ---
Providers Date of admission: 10/18/19 12:34 Expected date of discharge: 10/22/19 Attending physician: Paris Kwan Consults: 10/18/19 23:20 Consult Physician Routine Consulting Provider: Kaylynn Byrnes Consult Reason/Comments: Left ankle wound Do you want consulting provider notified?: Yes, Notify in am 10/21/19 16:11 Consult Physician Urgent Consulting Provider: Suly Sierra Consult Reason/Comments: gait dysfunction/weakness Do you want consulting provider notified?: Yes Primary care physician: Migue Hicks [facility] Course: Final diagnosis Acute left ankle ulceration with surrounding cellulitis Weakness of the left leg, possible transient ischemic attack with no evidence of stroke and the computed tomography scan Super morbid obesity with a BMI of 47.5 Persistent atrial fibrillation on Savaysa Asthma, chronic intermittent Hypertension Hyperlipidemia Hypokalemia History of MRSA Peripheral neuropathy, possibly secondary to diabetes mellitus type 2 History of benign colonic polyps History of coronary artery disease/stent History of tonsillectomy History of claustrophobia Full code history of coronary artery disease History of cutaneous B-cell lymphoma status post chemotherapy History of congestive heart failure, ejection fraction unknown History of degenerative joint disease History of prostate disorder History of peripheral vascular disease and diabetes mellitus type 2, on no medications because of weight loss Discharge disposition Patient is being discharged in a stable condition with guarded prognosis to home and will have home care in the outpatient setting. Patient will follow-up with primary care provider Dr. Hicks in the outpatient setting upon discharge. Patient will continue on a short course of oral antibiotics in the form of doxycycline for the next 10 days. Total time taken is 35 minutes. History of present illness This is a 69-year-old male who was recently admitted with significant ulcerations and cellulitis on the left lower extremity along with weakness and was being closely monitored. Infectious disease and neurology were following. During hospitalization patient underwent a CAT scan along with carotid ultrasound which did not reveal any acute abnormalities. Patient will follow-up with neurology in the outpatient setting as needed within the next 4 weeks. Patient will follow-up with primary care provider upon discharge and will follow-up with wound care center as needed. Patient will complete a short course of oral antibiotics in the form of doxycycline for the next 10 days. Patient will also have home care to assist with wound care changes in the outpatient setting. Patient is to continue elevating bilateral lower extremities and using Ishan wraps to help minimize the swelling. Patient will continue with local wound care as discussed with infectious disease. Currently patient's condition is stable and would like to go home today. Currently patient denies any chest pain, shortness of breath, or palpitations. Patient has remained afebrile. Patient denies any nausea or vomiting and is tolerating diet. Guarded prognosis. On exam vital signs are stable. Temp is 97.5F, pulse is 64, respirations are 17, blood pressure is 143/65, oxygen saturation is 96% on 2 L via nasal cannula. Cardio S1, S2 are muffled. Respiratory system shows diminished breath sounds at the bases with no wheezing noted. Abdomen is soft, obese, nontender. Nervous system shows no focal deficits. Please refer to medication reconciliation sheet for a list of medications. Patient Condition at Discharge: Good Plan - Discharge Summary Discharge Rx Participant: No New Discharge Prescriptions: New Doxycycline [Vibramycin] 100 mg PO BID 10 Days #20 capsule Aspirin 81 mg PO DAILY 30 Days #30 chew Multivitamins, Thera [Multivitamin (formulary)] 1 each PO DAILY@1200 30 Days #30 tab Continue Simvastatin 20 mg PO DAILY@1200 Finasteride 5 mg PO DAILY Edoxaban Tosylate [Savaysa] 60 mg PO DAILY Lisinopril [Zestril] 20 mg PO DAILY #1 tab Potassium Chloride [Klor-Con 10] 10 meq PO DAILY Furosemide [Lasix] 40 mg PO DAILY Metoprolol Tartrate [Lopressor] 25 mg PO BID Nitroglycerin Sl Tabs [Nitrostat] 0.4 mg SUBLINGUAL Q5M PRN #30 tab PRN Reason: Chest Pain Oxybutynin Chloride 10 mg PO DAILY Fluticasone Nasal Danielson [Flonase Nasal Danielson] 1 spray EA NOSTRIL DAILY Allopurinol [Zyloprim] 100 mg PO DAILY Discharge Medication List Finasteride 5 mg PO DAILY 04/18/14 [History] Simvastatin 20 mg PO DAILY@1200 04/18/14 [History] Edoxaban Tosylate [Savaysa] 60 mg PO DAILY 12/29/16 [History] Lisinopril [Zestril] 20 mg PO DAILY #1 tab 02/08/17 [Rx] Furosemide [Lasix] 40 mg PO DAILY 02/05/19 [History] Metoprolol Tartrate [Lopressor] 25 mg PO BID 02/05/19 [History] Potassium Chloride [Klor-Con 10] 10 meq PO DAILY 02/05/19 [History] Nitroglycerin Sl Tabs [Nitrostat] 0.4 mg SUBLINGUAL Q5M PRN #30 tab 02/07/19 [Rx] Allopurinol [Zyloprim] 100 mg PO DAILY 10/18/19 [History] Fluticasone Nasal Danielson [Flonase Nasal Danielson] 1 spray EA NOSTRIL DAILY 10/18/19 [History] Oxybutynin Chloride 10 mg PO DAILY 10/18/19 [History] Aspirin 81 mg PO DAILY 30 Days #30 chew 10/22/19 [Rx] Doxycycline [Vibramycin] 100 mg PO BID 10 Days #20 capsule 10/22/19 [Rx] Multivitamins, Thera [Multivitamin (formulary)] 1 each PO DAILY@1200 30 Days #30 tab 10/22/19 [Rx] Follow up Appointment(s)/Referral(s): [facility], [NON-STAFF] - Migue Hicks III, MD [Primary Care Provider] - 10/31/19 2:00 pm (with Nikunj Ramirez) [facility] [NON-STAFF] - As Needed (as needed) Activity/Diet/Wound Care/Special Instructions: [place] to the left leg wound , followed by moist dressing , change daily ACEwrap to both legs from just above toes to below knees, continue to elevate the legs while at rest follow up in wound care center with Dr byrnes , call [phone] to make an appointment Continue current diet Follow-up with primary care provider upon discharge May follow-up with neurology in the outpatient setting in 3-4 weeks as needed Discharge Disposition: HOME WITH HOME HEALTH SERVICES
== END 2019-10-22 15:39 | disposition home health service (06) | DRG 603 ==
LOC: EC 09:51 → 4SSUR 12:34
PROVIDERS: ADMIT Hospitalist; ATTEND Hospitalist
DX: L03.115 Cellulitis of right lower limb (principal); L97.329 Non-pressure chronic ulcer of left ankle with unspecified severity; Z68.42 Body mass index [BMI] 45.0-49.9, adult; I13.0 Hypertensive heart and chronic kidney disease with heart failure and stage 1 through stage 4 chronic kidney disease, or unspecified chronic kidney disease; I48.19 Other persistent atrial fibrillation; G45.9 Transient cerebral ischemic attack, unspecified; L03.116 Cellulitis of left lower limb; I83.009 Varicose veins of unspecified lower extremity with ulcer of unspecified site; E11.42 Type 2 diabetes mellitus with diabetic polyneuropathy; E11.51 Type 2 diabetes mellitus with diabetic peripheral angiopathy without gangrene; E66.01 Morbid (severe) obesity due to excess calories; E78.5 Hyperlipidemia, unspecified; E87.6 Hypokalemia; F40.240 Claustrophobia; I50.9 Heart failure, unspecified; N18.3 Chronic kidney disease, stage 3 (moderate); E11.22 Type 2 diabetes mellitus with diabetic chronic kidney disease; I25.10 Atherosclerotic heart disease of native coronary artery without angina pectoris; J45.20 Mild intermittent asthma, uncomplicated; Z79.899 Other long term (current) drug therapy; Z82.49 Family history of ischemic heart disease and other diseases of the circulatory system; Z82.5 Family history of asthma and other chronic lower respiratory diseases; Z83.3 Family history of diabetes mellitus; Z85.72 Personal history of non-Hodgkin lymphomas; Z92.21 Personal history of antineoplastic chemotherapy; Z86.14 Personal history of Methicillin resistant Staphylococcus aureus infection; Z86.010 Personal history of colon polyps; Z87.891 Personal history of nicotine dependence; Z88.0 Allergy status to penicillin; Z95.5 Presence of coronary angioplasty implant and graft; Z96.642 Presence of left artificial hip joint; M10.9 Gout, unspecified; R26.9 Unspecified abnormalities of gait and mobility; M19.90 Unspecified osteoarthritis, unspecified site
CPT/HCPCS: 36415; 70450; 71046; 73502; 80048; 80053; 80061; 81003; 83605; 83735; 83880; 84132; 84484; 85025; 85610; 85730; 87040; 87070; 87077; 87186; 87205; 93005; 93306; 93880; 96361; 96374; 99285

== ENCOUNTER → 2019-12-09 | Outpatient (CLI) | payer BC ==
--- NOTE | 2019-12-09 12:22 | CT ---
EXAMINATION TYPE: CT ChestAbdPelvis wo con DATE OF EXAM: 12/09/2019 COMPARISON: CT June 05, 2019 and older CTs HISTORY: Follow up lymphoma CT DLP: 2564.2 mGycm. Automated Exposure Control for Dose Reduction was Utilized. TECHNIQUE: CT scan of the thorax, abdomen and pelvis is performed with oral but without IV contrast. FINDINGS: LUNGS: The lungs are grossly clear, there is no new concerning parenchymal mass or nodule identified. Stable 2 mm right upper lobe nodule axial image 23 unchanged greater than 2 years. There is no pleu ral effusion or pneumothorax seen. The tracheobronchial tree is patent. MEDIASTINUM: There are no greater than 1 cm hilar or mediastinal lymph nodes. No new pericardial ef fusion is seen. Heart size stable and upper limits of normal. Moderate three-vessel coronary artery calcification is redemonstrated which is noted marker for underlying coronary artery disease. Small-s ized thyroid redemonstrated. Ascending aorta measures up to 3.8 cm diameter image 26 not significantl y changed from prior studies. OTHER: Stable right internal jugular Mediport catheter. Liver: Dependent gallstones again seen. Liver size thought stable and upper limits of normal. PANCREAS: Moderate generalized fat replaced atrophy redemonstrated. SPLEEN: No significant abnormality is seen. ADRENALS: Localized thickening to bilateral adrenal glands greater on the left consistent with benign lipid rich hyperplasia redemonstrated unchanged from 2017 study. KIDNEYS: Roughly 3 mm nonobstructing calculus lower pole left kidney image [address] more prominent were bet ter visualized from prior studies. BOWEL: No mild to moderate prominence of fecal material throughout the colon particularly right colo n. And contrast does not reach colonic level. No suspicious small or large bowel dilatation. A few sc attered diverticula in the left and proximal sigmoid colon. GENITAL ORGANS: Superior scrotum shows clips from vasectomy similar to prior. LYMPH NODES: No greater than 1cm abdominal or pelvic lymph nodes are appreciated. OSSEOUS STRUCTURES: Metallic hardware from left hip arthroplasty causes streak artifact limiting eval uation of pelvic structures. OTHER: Moderate sized umbilical hernia containing fat and tiny mesenteric vessels. IMPRESSION: No suspicious new mass or adenopathy to suggest neoplastic or active lymphoma recurrence.
== END | disposition home or self-care (01) ==
LOC: RADCTMAIN 09:56
PROVIDERS: ATTEND Internal Medicine Hematology & Oncology
DX: C85.99 Non-Hodgkin lymphoma, unspecified, extranodal and solid organ sites (principal); E11.22 Type 2 diabetes mellitus with diabetic chronic kidney disease; N18.9 Chronic kidney disease, unspecified
CPT/HCPCS: 71250; 74176

== ENCOUNTER → 2020-02-04 | Outpatient (CLI) | payer BC ==
[2020-02-04 12:40] LABS: HCT 42.5 % (39.0-53.0); HGB 14.3 gm/dL (13.0-17.5); MCH 32.6 pg (25.0-35.0); MCHC 33.7 g/dL (31.0-37.0); MCV 96.6 fL (80.0-100.0); Mean Platelet Volume 8.5; Platelet Count 125 k/uL (150-450); RDW 13.5 % (11.5-15.5); WBC 8.3 k/uL (3.8-10.6)
[2020-02-04 13:09] LABS: Appearance,Urine Clear (Clear); Bilirubin,Urine Negative (Negative); Blood,Urine Negative (Negative); Color,Urine Yellow; Glucose,Urine (UA) Negative (Negative); Ketones,Urine Negative (Negative); Leukocyte Esterase,Urine Negative (Negative); Nitrite,Urine Negative (Negative); PH, Urine 6.5 (5.0-8.0); Protein,Urine Trace (Negative); Specific Gravity,Urine 1.019 (1.001-1.035)
[2020-02-04 13:23] LABS: Protein/Creatinine Ratio,Urine 0.18
[2020-02-04 17:20] LABS: % Iron Saturation 40.45 (15.00-50.00); African American GFR (CKD) 70.6 (60.0-200.0); Albumin 3.9 g/dL (3.80-4.90); Albumin/Globulin Ratio 1.7 (1.60-3.17); Anion Gap 9.6 mmol/L (4.00-12.00); BUN/Creat Ratio 22.5 Ratio (12.00-20.00); Calcium 8.9 mg/dL (8.7-10.3); Carbon Dioxide 33.4 mmol/L (21.6-31.8); Globulin 2.3 g/dL (1.6-3.3); Magnesium 1.9 mg/dL (1.5-2.4); Non-African American GFR(CKD) 60.9 (60.0-200.0); Phosphorus 2.8 mg/dL (2.4-5.1); Potassium 4.1 mmol/L (3.5-5.5); Total Bilirubin 1.6 mg/dL (0.3-1.2); Total Protein 6.2 g/dL (6.2-8.2)
[2020-02-04 17:30] LABS: Ferritin 267.6 ng/mL (22.0-322.0)
== END | disposition home or self-care (01) ==
LOC: LABWHC1 11:17
PROVIDERS: ATTEND Nurse Practitioner Family
DX: N18.3 Chronic kidney disease, stage 3 (moderate) (principal); D63.1 Anemia in chronic kidney disease; E55.9 Vitamin D deficiency, unspecified; N39.0 Urinary tract infection, site not specified; R80.9 Proteinuria, unspecified; N25.81 Secondary hyperparathyroidism of renal origin; M10.9 Gout, unspecified
CPT/HCPCS: 36415; 80053; 81003; 82306; 82570; 82728; 83540; 83550; 83735; 83970; 84100; 84156; 84550; 85027

== ENCOUNTER → 2020-06-08 | Outpatient (CLI) | payer BC ==
--- NOTE | 2020-06-08 12:05 | CT ---
EXAMINATION TYPE: CT ChestAbdPelvis wo con DATE OF EXAM: 06/08/2020 COMPARISON: CT 12/09/2019 HISTORY: Follow up lymphoma CT DLP: 2331.4 mGycm. Automated Exposure Control for Dose Reduction was Utilized. TECHNIQUE: CT scan of the thorax, abdomen and pelvis is performed without IV contrast. FINDINGS: Lack of intravenous contrast could compromise sensitivity. There are dense coronary calcifi cations. LUNGS: The lungs are grossly clear, there is no concerning parenchymal mass or nodule identified. T here is no pleural effusion or pneumothorax seen. The tracheobronchial tree is patent. MEDIASTINUM: There are no greater than 1 cm hilar or mediastinal lymph nodes. No pericardial effusi on is seen. OTHER: Port-A-Cath in the right pectoral region courses via right internal jugular vein approach into the superior vena cava LIVER/GB: Liver is borderline enlarged and shows low-attenuation likely due t o hepatic steatosis, gallbladder shows some dependent stones as on prior. Pancreas: No significant interval change is seen. SPLEEN: No significant abnormality is seen. ADRENALS: No significant abnormality is seen. KIDNEYS: No significant interval change is seen, punctate left nonobstructive renal calculus is prese nt. BOWEL: No significant abnormality is seen. GENITAL ORGANS: No interval change is seen, minimal calcification. LYMPH NODES: No greater than 1cm abdominal or pelvic lymph nodes are appreciated. OSSEOUS STRUCTURES: Streak artifact from patient's left hip prosthesis could limit sensitivity OTHER: Umbilical hernia containing fat again noted IMPRESSION: No significant interval change. No evident recurrence. Additional findings above.
== END | disposition home or self-care (01) ==
LOC: RADCTMAIN 09:35
PROVIDERS: ATTEND Internal Medicine Hematology & Oncology
DX: C85.99 Non-Hodgkin lymphoma, unspecified, extranodal and solid organ sites (principal); Z88.0 Allergy status to penicillin
CPT/HCPCS: 71250; 74176

== ENCOUNTER → 2020-07-02 | Outpatient (CLI) | payer BC ==
--- NOTE | 2020-07-02 11:33 | CT ---
EXAMINATION TYPE: CT brain wo con DATE OF EXAM: 07/02/2020 HISTORY: Dizziness and TIA CT DLP: 1064.30 mGycm. Automated Exposure Control for Dose Reduction was Utilized. TECHNIQUE: CT scan of the head is performed without contrast. COMPARISON: CT head 10/19/2019 FINDINGS: There is no acute intracranial hemorrhage, midline shift, or mass effect identified. Redemonstrated v olume loss and mild patchy white matter hypodensities likely chronic microvascular ischemic change. The ventricles, sulci, and cisterns are normal in size and configuration. No extra-axial fluid collection. Bones and extracranial soft tissues are intact. The globes are gross ly symmetric. Mastoid air cells are clear. There is mucosal thickening of the left maxillary sinus an d ethmoid air cells. 6.4 cm right occipital extracranial lipoma, mildly increased in size versus 2019 comparison. IMPRESSION: No acute intracranial hemorrhage, midline shift, or mass effect
--- NOTE | 2020-07-02 12:45 | CT ---
EXAMINATION TYPE: CT lumbar spine wo con DATE OF EXAM: 07/02/2020 9:13 AM COMPARISON: None HISTORY: Dizziness and TIA CT DLP: 2651.70 mGycm Automated exposure control for dose reduction was used. Unenhanced CT of the lumbar spine was performed. Bone and soft tissue window settings are submitted as well as coronal and sagittal reconstructions. No evidence of acute fracture, vertebral body height loss, or dislocation. L1-L2: Normal disc space height. Posterior disc bulge effaces the ventral aspect of the thecal sac. N o central stenosis. No facet joint arthropathy. No evidence for foraminal encroachment. L2-L3: Normal disc space height. Circumferential disc bulge with mild central stenosis. No facet carmen nt arthropathy. No evidence for foraminal encroachment. L3-L4: Normal disc space height. Posterior disc bulge with moderate central stenosis. There is facet joint arthropathy. Severe right and moderate left foraminal encroachment. L4-L5: Disc space narrowing with vacuum disc phenomenon. Posterior disc bulge with moderate central s tenosis. There is facet joint arthropathy. Mild right and severe left foraminal encroachment. L5-S1: Disc space narrowing with vacuum disc phenomenon. Posterior disc bulge effaces the ventral asp ect of the thecal sac. No central stenosis. There is facet joint arthropathy. Moderate right and mili re left foraminal encroachment. IMPRESSION: Degenerative disc disease and facet arthropathy of the lumbar spine, with moderate central stenosis o f L3-L4 and L4-L5. Varying degrees of multilevel neural foramina narrowing as above.
== END | disposition home or self-care (01) ==
LOC: RADCTMAIN 08:00
PROVIDERS: ATTEND Psychiatry & Neurology Neurology
DX: M48.061 Spinal stenosis, lumbar region without neurogenic claudication (principal); M51.36 Other intervertebral disc degeneration, lumbar region; M47.816 Spondylosis without myelopathy or radiculopathy, lumbar region; G45.9 Transient cerebral ischemic attack, unspecified; Z88.0 Allergy status to penicillin
CPT/HCPCS: 70450; 72131

== ENCOUNTER → 2020-12-04 | Outpatient (CLI) | payer BC, OTHER ==
--- NOTE | 2020-12-04 12:19 | CT ---
EXAMINATION TYPE: CT ChestAbdPelvis wo con DATE OF EXAM: 12/04/2020 COMPARISON: Most recent CT June 08, 2020 and older CTs HISTORY: Lymphoma progress study. CT DLP: 1517 mGycm. Automated Exposure Control for Dose Reduction was Utilized. TECHNIQUE: CT scan of the thorax, abdomen and pelvis is performed with oral and without IV contrast. FINDINGS: LUNGS: The lungs are grossly clear, there is no concerning new greater than 4 mm parenchymal mass or nodule identified. There is no pleural effusion or pneumothorax seen. The tracheobronchial tree is patent. Focus of parenchymal scarring medial right lower lobe redemonstrated near spurring. MEDIASTINUM: There are no greater than 1 cm hilar or mediastinal lymph nodes. No new pericardial ef fusion is seen. Heart size stable and upper limits of normal. Moderate three-vessel coronary artery calcification is redemonstrated which is noted marker for underlying coronary artery disease. Small-s ized thyroid redemonstrated. Ascending aorta measures up to 3.8 cm diameter axial image 27 not signif icantly changed from prior studies. Stable prominent pulmonary arteries. OTHER: Stable right internal jugular Mediport catheter. LIVER/GB: Some dependent larger gallstones and gallbladder redemonstrated. PANCREAS: Moderate generalized fat replaced atrophy redemonstrated. SPLEEN: No significant abnormality is seen. ADRENALS: No significant abnormality is seen. KIDNEYS: Clinical thinning both kidneys. Motion artifact degradation. Possible tiny nonobstructing bi lateral renal calculi. BOWEL: Oral contrast reaches level of the hepatic flexure. No suspicious small or large bowel dilatat ion GENITAL ORGANS: Suboptimally evaluated. Surgical clips in the superior scrotum bilaterally redemonstr ated. LYMPH NODES: No new greater than 1cm abdominal or pelvic lymph nodes are appreciated. Stable prominen t but subcentimeter bilateral groin lymph nodes. OSSEOUS STRUCTURES: Metallic hardware from left hip arthroplasty causes streak artifact limiting eval uation of pelvic structures. OTHER: Moderate calcified plaque of the abdominal aorta extends into branch vessels. Persistent moder ate-sized focal hernia containing fat and tiny mesenteric vessels. IMPRESSION: Slightly suboptimal due to body habitus. No obvious new mass or adenopathy to suggest ne oplastic recurrence. No significant change from most recent prior studies.
== END | disposition home or self-care (01) ==
LOC: RADCTMAIN 09:33
PROVIDERS: ATTEND Internal Medicine Hematology & Oncology
DX: C85.99 Non-Hodgkin lymphoma, unspecified, extranodal and solid organ sites (principal); Z88.0 Allergy status to penicillin
CPT/HCPCS: 71250; 74176

== ENCOUNTER → 2020-12-30 | Outpatient (CLI) | payer MEDICARE ==
[2020-12-30 15:27] LABS: Appearance,Urine Clear (Clear); Bilirubin,Urine Negative (Negative); Blood,Urine Trace (Negative); Color,Urine Yellow; Glucose,Urine (UA) Negative (Negative); Hyaline Casts,Urine 4 /lpf (0-2); Ketones,Urine Negative (Negative); Leukocyte Esterase,Urine Negative (Negative); Mucus,Urine Rare /hpf; Nitrite,Urine Negative (Negative); PH, Urine 5.5 (5.0-8.0); Protein,Urine Negative (Negative); RBC,Urine 1 /hpf (0-5); Specific Gravity,Urine 1.009 (1.001-1.035); Squamous Epithelial Cell,Urine <1 /hpf (0-4); Urobilinogen,Urine <2.0 mg/dL (<2.0); WBC,Urine <1 /hpf (0-5)
[2020-12-30 19:28] LABS: HCT 43.6 % (39.6-50.0); HGB 13.6 g/dL (13.0-17.0); MCH 31.8 pg (27.0-32.0); MCHC 31.2 g/dL (32.0-37.0); MCV 101.9 fL (80.0-97.0); Mean Platelet Volume 12.4 fL (9.5-12.2); Platelet Count 138 X 10*3/uL (140-440); RBC 4.28 X 10*6/uL (4.40-5.60); RDW 15.8 % (11.5-14.5)
[2020-12-31 00:28] LABS: Urine Creatinine 47.5 mg/dL
[2020-12-31 01:31] LABS: % Iron Saturation 18.62 (15.00-50.00); African American GFR (CKD) 49.5 (60.0-200.0); Albumin 4.4 g/dL (3.80-4.90); Albumin/Globulin Ratio 2.1 (1.60-3.17); Anion Gap 17.6 mmol/L (4.00-12.00); BUN/Creat Ratio 30.63 Ratio (12.00-20.00); Calcium 9.4 mg/dL (8.7-10.3); Carbon Dioxide 23.4 mmol/L (21.6-31.8); Globulin 2.1 g/dL (1.6-3.3); Non-African American GFR(CKD) 42.7 (60.0-200.0); Phosphorus 3.5 mg/dL (2.4-5.1); Potassium 4.2 mmol/L (3.5-5.5); Total Bilirubin 1.2 mg/dL (0.2-1.2); Total Protein 6.5 g/dL (6.2-8.2); Uric Acid 8.4 mg/dL (3.7-8.7)
[2020-12-31 01:39] LABS: Ferritin 59.8 ng/mL (22.0-322.0)
== END | disposition home or self-care (01) ==
LOC: LABWHC1 14:04
PROVIDERS: ATTEND Internal Medicine
DX: N39.0 Urinary tract infection, site not specified (principal); N18.30 Chronic kidney disease, stage 3 unspecified; R80.9 Proteinuria, unspecified; E83.39 Other disorders of phosphorus metabolism; E21.3 Hyperparathyroidism, unspecified; E55.9 Vitamin D deficiency, unspecified; M10.9 Gout, unspecified; D63.1 Anemia in chronic kidney disease
CPT/HCPCS: 36415; 80053; 81001; 82043; 82306; 82570; 82728; 83540; 83550; 83735; 83970; 84100; 84550; 85027

== ENCOUNTER 2021-01-13 10:04 | Inpatient (IN) | payer BC, MEDICARE, OTHER ==
--- NOTE | 2021-01-13 10:50 | ED ---
Weakness HPI - General Chief complaint: Weakness Stated complaint: SOB Time Seen by Provider: 01/13/21 10:05 Source: patient, EMS Mode of arrival: EMS Limitations: no limitations - History of Present Illness Initial comments: Patient is a 70-year-old male with past medical history of A. fib on anticoagulation, congestive heart failure, chronic lower extremity lymphedema, lymphoma, coronary artery disease who presents to the emergency department with reported weakness and shortness of breath. Patient has a history of COPD and is on 2 L of home O2 at all times. Reports that he has significant exertional shortness of breath. Also has had weakness since last Monday. Reports to worsening lower extremity edema to the point where he has been nonambulatory. Patient does have open wounds to the bilateral lower extremities. Reports to chronic cellulitis. No fevers, chills. Denies sick contacts. No chest pain. Denies any missed doses of his anticoagulation. No history of DVT or PE. Does have a stress test scheduled for January 27. Takes 40 mg of lasix BID - no missed doses but states urination has been decreased. patient also reports to 2 days worth of left lower extremity weakness. States that this has persisted in the inability to ambulate. Patient has a history of similar several years ago and was diagnosed with a TIA. States he follows with neurology in the outpatient setting because of his history. Weakness entirely resolved and patient denies any chronic weakness. No other alleviating, precipitating or modifying factors - Related Data Home Medications Medication Instructions Recorded Confirmed Finasteride 5 mg PO DAILY 04/18/14 01/13/21 Edoxaban Tosylate [Savaysa] 60 mg PO DAILY 12/29/16 01/13/21 Furosemide [Lasix] 40 mg PO BID 02/05/19 01/13/21 Metoprolol Tartrate [Lopressor] 25 mg PO BID 02/05/19 01/13/21 Potassium Chloride [Klor-Con 10] 10 meq PO DAILY 02/05/19 01/13/21 Fluticasone Nasal [place] [Flonase 1 spray EA NOSTRIL BID 10/18/19 01/13/21 Nasal [place]] Oxybutynin Chloride 10 mg PO DAILY 10/18/19 01/13/21 Allopurinol [Zyloprim] 300 mg PO DAILY 01/13/21 01/13/21 Clotrimazole Cream [Lotrimin Cream] 1 applic TOPICAL BID PRN 01/13/21 01/13/21 Lacosamide [Vimpat] 200 mg PO BID 01/13/21 01/13/21 Nitroglycerin Sl Tabs [Nitrostat] 0.4 mg SL Q5M PRN 01/13/21 01/13/21 Previous Rx's Medication Instructions Recorded lisinopriL [Zestril] 20 mg PO DAILY #1 tab 02/08/17 Allergies Allergy/AdvReac Type Severity Reaction Status Date / Time Penicillins Allergy Unknown Verified 01/13/21 11:36 Childhood/Patient went into a coma Review of Systems ROS Statement: Those systems with pertinent positive or pertinent negative responses have been documented in the HPI. ROS Other: All systems not noted in ROS Statement are negative. 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, CKD stage III, gout, back pain if stands too long, diverticular disease, benign colon polyps, BPH History of Any Multi-Drug Resistant Organisms: MRSA Date of last positivie culture/infection: 05/18/17 MDRO Source:: RIGHT LEG Past Surgical History: Heart Catheterization With Stent, Joint Replacement, Orthopedic Surgery, Tonsillectomy Additional Past Surgical History / Comment(s): 2013 PCI with 2 stents, infusaport R upper chest, 8 hand surgeries after injury in [place]-skin grafts/tendon repair-skin taken from L upper chest and bilateral ankle tendon donors, L total hip arthroplasty, colonoscopies/benign polyps. Past Anesthesia/Blood Transfusion Reactions: Previous Problems w/ Anesthesia Additional Past Anesthesia/Blood Transfusion Reaction / Comment(s): Difficulty waking with 2 surgeries performed while in the [employer] Date of Last Stent Placement:: 2013 Past Psychological History: No Psychological Hx Reported Smoking Status: Never smoker Past Alcohol Use History: None Reported Past Drug Use History: None Reported - Past Family History Mother Family Medical History: COPD, Diabetes Mellitus Additional Family Medical History / Comment(s): Mother of a [place] at the age of 61 yrs. She was a heavy smoker. Father History Unknown: Yes Family Medical History: Myocardial Infarction ([place]) Additional Family Medical History / Comment(s): Pt does not know father's medical history General Exam Limitations: no limitations General appearance: alert, in no apparent distress, obese Head exam: Present: atraumatic, normocephalic, normal inspection Eye exam: Present: normal appearance, PERRL, EOMI. Absent: scleral icterus, conjunctival injection, periorbital swelling ENT exam: Present: normal exam, mucous membranes moist Neck exam: Present: normal inspection. Absent: tenderness, meningismus, lymphadenopathy Respiratory exam: Present: normal lung sounds bilaterally. Absent: respiratory distress, wheezes, rales, rhonchi, stridor Cardiovascular Exam: Present: regular rate, irregular rhythm, normal heart sounds. Absent: systolic murmur, diastolic murmur, rubs, gallop, clicks GI/Abdominal exam: Present: soft, normal bowel sounds. Absent: distended, tenderness, guarding, rebound, rigid Extremities exam: Present: normal inspection, full ROM, normal capillary refill, pedal edema (brawny, b/l with open venous stasis ulcers.). Absent: tenderness, joint swelling, calf tenderness Back exam: Present: normal inspection Neurological exam: Present: alert, oriented X3, CN II-XII intact Psychiatric exam: Present: normal affect, normal mood Skin exam: Present: warm, dry, intact, normal color. Absent: rash Course Vital Signs 01/13/21 01/13/21 01/13/21 10:05 12:00 13:39 Temperature 97.8 F Pulse Rate 66 47 L 66 Respiratory 20 18 19 Rate Blood Pressure 107/63 101/61 102/61 O2 Sat by Pulse 100 93 L 100 Oximetry EKG Findings - EKG Comments: EKG Findings:: EKG demonstrates A. fib with PVCs. Rate of 64. QRS 154. QTC of 493. Right bundle branch block present. no acute ST segment elevations or depressions Medical Decision Making - Medical Decision Making Upon arrival patient is placed into room 1. A thorough history and physical exam was performed. He is placed on his 2 L of oxygen. No signs of respiratory distress. Patient does not have any lateralizing weakness. Bilateral weakness noted in the lower extremities. IV is established. Laboratory studies were conducted. Laboratory studies are reviewed. BNP 4100. Chest x-ray is read by the radiologist as negative for acute process. CT of the brain was performed as the patient is concerned for stroke with his subjective left lower extremity weakness. Demonstrates degenerative and nonspecific white matter changes typical of remote ischemia. Discuss results with the patient. He was given 60 mg of Lasix. Recommended admission and spoke with Dr. gaona. He did agree to admit the patient. Cardiology and neurology will be placed on consult. Ranjana patrick's home medications ordered. Patient awaiting a bed on the floor - Lab Data Result diagrams: 01/16/21 07:06 01/17/21 06:59 Lab Results 01/13/21 01/13/21 01/13/21 Range/Units 10:27 10:27 10:27 WBC 6.3 (3.8-10.6) k/uL RBC 4.44 (4.30-5.90) m/uL Hgb 14.3 (13.0-17.5) gm/dL Hct 43.7 (39.0-53.0) % MCV 98.4 (80.0-100.0) fL MCH 32.3 (25.0-35.0) pg MCHC 32.8 (31.0-37.0) g/dL RDW 15.4 (11.5-15.5) % Plt Count 132 L (150-450) k/uL MPV 8.9 Neutrophils % 67 % Lymphocytes % 19 % Monocytes % 8 % Eosinophils % 4 % Basophils % 0 % Neutrophils # 4.2 (1.3-7.7) k/uL Lymphocytes # 1.2 (1.0-4.8) k/uL Monocytes # 0.5 (0-1.0) k/uL Eosinophils # 0.2 (0-0.7) k/uL Basophils # 0.0 (0-0.2) k/uL Macrocytosis Slight PT 12.0 (9.0-12.0) sec INR 1.1 (<1.2) APTT 25.3 (22.0-30.0) sec Sodium 137 (137-145) mmol/L Potassium 4.2 (3.5-5.1) mmol/L Chloride 97 L (98-107) mmol/L Carbon Dioxide 29 (22-30) mmol/L Anion Gap 11 mmol/L BUN 41 H (9-20) mg/dL Creatinine 1.28 H (0.66-1.25) mg/dL Est GFR (CKD-EPI)AfAm 65 (>60 ml/min/1.73 sqM) Est GFR (CKD-EPI)NonAf 56 (>60 ml/min/1.73 sqM) Glucose 174 H (74-99) mg/dL Plasma Lactic Acid Walter (0.7-2.0) mmol/L Calcium 9.6 (8.4-10.2) mg/dL Total Bilirubin 2.0 H (0.2-1.3) mg/dL AST 29 (17-59) U/L ALT 22 (4-49) U/L Alkaline Phosphatase 90 (38-126) U/L Troponin I (0.000-0.034) ng/mL NT-Pro-B Natriuret Pep pg/mL Total Protein 7.0 (6.3-8.2) g/dL Albumin 4.0 (3.5-5.0) g/dL Coronavirus (PCR) (Not Detectd) 01/13/21 01/13/21 01/13/21 Range/Units 10:27 10:27 10:27 WBC (3.8-10.6) k/uL RBC (4.30-5.90) m/uL Hgb (13.0-17.5) gm/dL Hct (39.0-53.0) % MCV (80.0-100.0) fL MCH (25.0-35.0) pg MCHC (31.0-37.0) g/dL RDW (11.5-15.5) % Plt Count (150-450) k/uL MPV Neutrophils % % Lymphocytes % % Monocytes % % Eosinophils % % Basophils % % Neutrophils # (1.3-7.7) k/uL Lymphocytes # (1.0-4.8) k/uL Monocytes # (0-1.0) k/uL Eosinophils # (0-0.7) k/uL Basophils # (0-0.2) k/uL Macrocytosis PT (9.0-12.0) sec INR (<1.2) APTT (22.0-30.0) sec Sodium (137-145) mmol/L Potassium (3.5-5.1) mmol/L Chloride (98-107) mmol/L Carbon Dioxide (22-30) mmol/L Anion Gap mmol/L BUN (9-20) mg/dL Creatinine (0.66-1.25) mg/dL Est GFR (CKD-EPI)AfAm (>60 ml/min/1.73 sqM) Est GFR (CKD-EPI)NonAf (>60 ml/min/1.73 sqM) Glucose (74-99) mg/dL Plasma Lactic Acid Walter 1.7 (0.7-2.0) mmol/L Calcium (8.4-10.2) mg/dL Total Bilirubin (0.2-1.3) mg/dL AST (17-59) U/L ALT (4-49) U/L Alkaline Phosphatase (38-126) U/L Troponin I 0.016 (0.000-0.034) ng/mL NT-Pro-B Natriuret Pep 4100 pg/mL Total Protein (6.3-8.2) g/dL Albumin (3.5-5.0) g/dL Coronavirus (PCR) (Not Detectd) 01/13/21 Range/Units 10:27 WBC (3.8-10.6) k/uL RBC (4.30-5.90) m/uL Hgb (13.0-17.5) gm/dL Hct (39.0-53.0) % MCV (80.0-100.0) fL MCH (25.0-35.0) pg MCHC (31.0-37.0) g/dL RDW (11.5-15.5) % Plt Count (150-450) k/uL MPV Neutrophils % % Lymphocytes % % Monocytes % % Eosinophils % % Basophils % % Neutrophils # (1.3-7.7) k/uL Lymphocytes # (1.0-4.8) k/uL Monocytes # (0-1.0) k/uL Eosinophils # (0-0.7) k/uL Basophils # (0-0.2) k/uL Macrocytosis PT (9.0-12.0) sec INR (<1.2) APTT (22.0-30.0) sec Sodium (137-145) mmol/L Potassium (3.5-5.1) mmol/L Chloride (98-107) mmol/L Carbon Dioxide (22-30) mmol/L Anion Gap mmol/L BUN (9-20) mg/dL Creatinine (0.66-1.25) mg/dL Est GFR (CKD-EPI)AfAm (>60 ml/min/1.73 sqM) Est GFR (CKD-EPI)NonAf (>60 ml/min/1.73 sqM) Glucose (74-99) mg/dL Plasma Lactic Acid Walter (0.7-2.0) mmol/L Calcium (8.4-10.2) mg/dL Total Bilirubin (0.2-1.3) mg/dL AST (17-59) U/L ALT (4-49) U/L Alkaline Phosphatase (38-126) U/L Troponin I (0.000-0.034) ng/mL NT-Pro-B Natriuret Pep pg/mL Total Protein (6.3-8.2) g/dL Albumin (3.5-5.0) g/dL Coronavirus (PCR) Not Detected (Not Detectd) Disposition Clinical Impression: Obesity, Weakness, Dyspnea on exertion, Bilateral lower extremity edema, COPD (chronic obstructive pulmonary disease), Chronic respiratory insufficiency, Left leg weakness, Afib Disposition: ADMITTED IP TO THIS [facility] Condition: Serious Is patient prescribed a controlled substance at d/c from ED?: No Decision to Admit Reason: Admit from EC Decision Date: 01/13/21 Decision Time: 12:05
[2021-01-13 11:03] LABS: Calcium 9.6 mg/dL (8.4-10.2); Potassium 4.2 mmol/L (3.5-5.1)
[2021-01-13 11:06] LABS: INR 1.1 (<1.2); Partial Thromboplastin Time 25.3 sec (22.0-30.0)
--- NOTE | 2021-01-13 11:13 | XR ---
EXAMINATION TYPE: XR chest 2V DATE OF EXAM: 01/13/2021 COMPARISON: 10/18/2019 INDICATION: Difficulty breathing TECHNIQUE: Frontal and lateral views of the chest are obtained. FINDINGS: The heart size is borderline prominent. The pulmonary vasculature is normal. The lungs are clear. Port is present on the right with the tip in the superior vena cava region. IMPRESSION: 1. No acute pulmonary process.
[2021-01-13 11:40] LABS: Basophils % (A) 0 %; Eosinophils # (A) 0.2 k/uL (0-0.7); Eosinophils % (A) 4 %; HCT 43.7 % (39.0-53.0); HGB 14.3 gm/dL (13.0-17.5); Lymphocytes # (A) 1.2 k/uL (1.0-4.8); Lymphocytes % (A) 19 %; MCH 32.3 pg (25.0-35.0); MCHC 32.8 g/dL (31.0-37.0); MCV 98.4 fL (80.0-100.0); Macrocytosis Slight; Mean Platelet Volume 8.9; Monocytes # (A) 0.5 k/uL (0-1.0); Monocytes % (A) 8 %; Neutrophils # (A) 4.2 k/uL (1.3-7.7); Neutrophils % (A) 67 %; Platelet Count 132 k/uL (150-450); RBC 4.44 m/uL (4.30-5.90); RDW 15.4 % (11.5-15.5); WBC 6.3 k/uL (3.8-10.6)
--- NOTE | 2021-01-13 11:58 | CT ---
EXAMINATION TYPE: CT brain wo con DATE OF EXAM: 01/13/2021 COMPARISON: 07/02/2020 HISTORY: Leg weakness CT DLP: 1109.4 mGycm Automated exposure control for dose reduction was used. FINDINGS: There is no acute intracranial hemorrhage, midline shift, or mass effect identified. Redemonstrated v olume loss and mild patchy white matter hypodensities likely chronic microvascular ischemic change. T he ventricles, sulci, and cisterns are normal in size and configuration. No extra-axial fluid collection. Bones and extracranial soft tissues are intact. The globes are viviana sly symmetric. Mastoid air cells are clear. There is mucosal thickening of the left maxillary sinus a nd ethmoid air cells. 6.4 cm right occipital extracranial lipoma, stable from previous. IMPRESSION: DEGENERATIVE AND NONSPECIFIC WHITE MATTER CHANGES MOST TYPICAL OF REMOTE ISCHEMIA. IF THERE IS CONCER N FOR ACUTE ISCHEMIA CORRELATE WITH MRI CLINICALLY WARRANTED. LARGE SOFT TISSUE LIPOMA RIGHT POSTERIOR OCCIPUT
[2021-01-13] MEDS ORDERED: FUROSEMIDE 10 MG/ML 10 ML VIAL IV STA (12:07)
[2021-01-13] MEDS ORDERED: NALOXONE 0.4 MG/ML 1 ML VIAL IV PRN (12:21)
[2021-01-13] MEDS ORDERED: CLOTRIMAZOLE 1% CREAM 15 GM TUBE TOPICAL PRN (12:25)
--- NOTE | 2021-01-13 13:26 | P.HPIM ---
History of Present Illness 69-year-old man with past medical history of atrial fibrillation, asthma, coronary artery disease, hyperlipidemia, hypertension, osteoarthritis, subcutaneous B-cell lymphoma, wounds in bilateral ankles, chronic left leg weakness which was evaluated by neurologist on 10/22/2019 and found due to cellulitis and leg swelling. Also patient has a history of lymphoma and he finishes chemotherapy in 2017, he followed up with Dr. Haddad last month for routine visit, with no new recommendation as per patient Patient presents this time because of weakness in both legs for Monday 5 days ago and as per family at bedside is more than 5 days, associated with some exertional dyspnea. He denies chest pain, he has chronic cough with clear phlegm. No abdominal pain or diarrhea or vomiting. No headache or weakness or numbness. Patient also does not have pain in his lower extremity, actually he has loss of sensation from diabetic neuropathy His both legs are swollen, red and warm to touch especially more on the right side also on the right side he has a 2 inches superficial wound with purulent base and surrounding redness suspicious for cellulitis Disha looks stable, is slightly bradycardic at 47, he saturating 93% 200% on 2 L oxygen via nasal cannula. Labs are unremarkable including CBC, INR. 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 Espinoza EKG showing atrial fibrillation's at 64 with aberrant conducted complexes, PVC and draped mental branch block, creatinine is at baseline of 1.28, with baseline is 1.1-1.4. Glucose 174. Liver exams not elevated, bilirubin is 2.0. Coronavirus not detected. ProBNP is 4100 CT of the brain: No acute process. Large soft tissue lipoma Chest x-ray: No acute process. In the emergency room he got 1 dose of Lasix 60 mg Review of Systems CONSTITUTIONAL: No fever, no malaise, no fatigue. HEENT: No recent visual problems or hearing problems. Denied any sore throat. CARDIOVASCULAR: No orthopnea, PND, no palpitations, no syncope. PULMONARY: No shortness of breath, no hemoptysis. GASTROINTESTINAL: No diarrhea, no nausea, no vomiting, no abdominal pain. Normoactive bowel sounds. NEUROLOGICAL: No headaches, no numbness. HEMATOLOGICAL: Denies any bleeding or petechiae. GENITOURINARY: Denies any burning micturition, frequency, or urgency. MUSCULOSKELETAL/RHEUMATOLOGICAL: Denies any joint pain, swelling, or any muscle pain. ENDOCRINE: Denies any polyuria or polydipsia. 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, CKD stage III, gout, back pain if stands too long, diverticular disease, benign colon polyps, BPH History of Any Multi-Drug Resistant Organisms: MRSA Date of last positivie culture/infection: 05/18/17 MDRO Source:: RIGHT LEG Past Surgical History: Heart Catheterization With Stent, Joint Replacement, Orthopedic Surgery, Tonsillectomy Additional Past Surgical History / Comment(s): 2013 PCI with 2 stents, infusaport R upper chest, 8 hand surgeries after injury in [place]-skin grafts/tendon repair-skin taken from L upper chest and bilateral ankle tendon donors, L total hip arthroplasty, colonoscopies/benign polyps. Past Anesthesia/Blood Transfusion Reactions: Previous Problems w/ Anesthesia Additional Past Anesthesia/Blood Transfusion Reaction / Comment(s): Difficulty waking with 2 surgeries performed while in the [employer] Date of Last Stent Placement:: 2013 Past Psychological History: No Psychological Hx Reported Smoking Status: Never smoker Past Alcohol Use History: None Reported Past Drug Use History: None Reported - Past Family History Mother Family Medical History: COPD, Diabetes Mellitus Additional Family Medical History / Comment(s): Mother of a [place] at the age of 61 yrs. She was a heavy smoker. Father History Unknown: Yes Family Medical History: Myocardial Infarction ([place]) Additional Family Medical History / Comment(s): Pt does not know father's medical history Medications and Allergies Home Medications Medication Instructions Recorded Confirmed Type Finasteride 5 mg PO DAILY 04/18/14 01/13/21 History Edoxaban Tosylate [Savaysa] 60 mg PO DAILY 12/29/16 01/13/21 History lisinopriL [Zestril] 20 mg PO DAILY #1 tab 02/08/17 01/13/21 Rx Furosemide [Lasix] 40 mg PO BID 02/05/19 01/13/21 History Metoprolol Tartrate [Lopressor] 25 mg PO BID 02/05/19 01/13/21 History Potassium Chloride [Klor-Con 10] 10 meq PO DAILY 02/05/19 01/13/21 History Fluticasone Nasal [place] [Flonase 1 spray EA NOSTRIL BID 10/18/19 01/13/21 History Nasal [place]] Oxybutynin Chloride 10 mg PO DAILY 10/18/19 01/13/21 History Allopurinol [Zyloprim] 300 mg PO DAILY 01/13/21 01/13/21 History Clotrimazole Cream [Lotrimin Cream] 1 applic TOPICAL BID PRN 01/13/21 01/13/21 History Lacosamide [Vimpat] 200 mg PO BID 01/13/21 01/13/21 History Nitroglycerin Sl Tabs [Nitrostat] 0.4 mg SL Q5M PRN 01/13/21 01/13/21 History Allergies Allergy/AdvReac Type Severity Reaction Status Date / Time Penicillins Allergy Unknown Verified 01/13/21 11:36 Childhood/Patient went into a coma Physical Exam Vitals: Vital Signs Temp Pulse Resp BP Pulse Ox 01/13/21 12:00 47 L 18 101/61 93 L 01/13/21 10:05 97.8 F 66 20 107/63 100 Intake and Output 01/12/21 01/13/21 01/13/21 22:59 06:59 14:59 Other: Weight 159.665 kg -GENERAL: The patient is alert and oriented x3, not in any acute distress. Obese HEENT: Pupils are round and equally reacting to light. EOMI. No scleral icterus. No conjunctival pallor. Normocephalic, atraumatic. No pharyngeal erythema. No thyromegaly. CARDIOVASCULAR: S1 and S2 present. No murmurs, rubs, or gallops. PULMONARY: Chest is clear to auscultation, no wheezing or crackles. ABDOMEN: Soft, nontender, nondistended, normoactive bowel sounds. No palpable organomegaly. MUSCULOSKELETAL: No joint swelling or deformity. -EXTREMITIES: No cyanosis, clubbing, or pedal edema. Right leg warm, swollen with 1 to the right upper lateral leg about 2-3 inches in diameter with purulent base. Left leg is less inflamed NEUROLOGICAL: Gross neurological examination did not reveal any focal deficits. SKIN: No rashes. No petechiae Results CBC & Chem 7: 01/13/21 10:27 01/13/21 10:27 Labs: Abnormal Lab Results - Last 24 Hours (Table) 01/13/21 01/13/21 Range/Units 10:27 10:27 Plt Count 132 L (150-450) k/uL Chloride 97 L (98-107) mmol/L BUN 41 H (9-20) mg/dL Creatinine 1.28 H (0.66-1.25) mg/dL Glucose 174 H (74-99) mg/dL Total Bilirubin 2.0 H (0.2-1.3) mg/dL Assessment and Plan Assessment: Bilateral lower extremity cellulitis, with right L once with purulent base Bilateral lower extremity weakness and difficulty in ambulation, patient denies back pain or headache. Most likely is due to his cellulitis however were going to consult neurology Hypertension Hyperlipidemia Diabetic neuropathy with loss of sensation in the lower extremities Morbid obesity with BMI of 46.4 Chronic atrial fibrillation Chronic kidney disease stage III History of coronary artery disease, status post stent placement Chronic systolic congestive heart failure, ejection fraction 35-40% per echocardiogram 2019 B cell lymphoma Bilateral lymphedema and wants in both ankles Chronic left leg weakness Plan: This is a pleasant 70 days old male with bilateral leg cellulitis, more on the right side with history of MRSA. And due to his drug ALLERGY were going to consult infectious disease team for antibiotic. Also we will send for wound culture Consult neurology service Labs and medication were reviewed.. Continue same treatment. Continue with symptomatic treatment. Resume home medication. Monitor lytes and vitals. DVT and GI prophylaxis. Further recommendations depends on the clinical course of the patient DVT prophylaxis: savaysa GI Prophylaxis: Pepcid PT/OT: Pending Prognosis is guarded
[2021-01-13] MEDS: METOPROLOL TARTRATE 25 MG TAB PO SCH ×2 (13:36→20:32)
[2021-01-13] MEDS: FINASTERIDE 5 MG TAB PO SCH (13:36)
[2021-01-13] MEDS: OXYBUTYNIN CHLORIDE 5 MG TAB PO SCH (13:36)
[2021-01-13] MEDS: lisinopriL 20 MG TAB PO SCH (13:36)
[2021-01-13] MEDS: POTASSIUM CHLORIDE ER 10 MEQ TAB.ER.PRT PO SCH (13:36)
[2021-01-13] MEDS: EDOXABAN TOSYLATE 60 MG TABLET PO SCH (14:02)
[2021-01-13] MEDS: LACOSAMIDE 50 MG TABLET PO SCH ×2 (14:02→20:23)
--- NOTE | 2021-01-13 15:08 | P.CNNES ---
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 He notified me that for the last 1 week he's been having worsening of bilateral lower extremity edema especially the left. And since this past Monday (5 days ago) he has been having progressive bilateral lower extremity the weakness (worse on left than the right). He said that he usually uses a walker at baseline but as a result of worsening of the edema as well as the weakness he is unable to use a walker. He denies of any difficulty getting his words out, vision change, worsening of the numbness or any weakness of the upper extremities. He said that he has mild lower back pain but denies any radiation. Denies any the bowel incontinence. He said that he has this lower back pain for years but has not worsened. He said that he had a similar presentation in 2019 and the he follows up with Dr. Blum and he was told that this was a transient ischemic attack. He said that was exactly the same presentation according to him. He follows up with the physician assistant professor of archaeology at the neurology office. Patient is on Vimpat 200 mg 1 tablet twice a day and he said it is used for pain. I notified the him that it's an antiepileptic drug and whether he has any history of seizures and he denied that. He has chronic cellulitis and is being treated by Dr. Spears according to the patient. Of note the patient has a history of lymphoma as mentioned above and that she had chemotherapy in 2017 and she follows up with Dr. Haddad last month for routine visit. Patient is also on Edoxaban (it is a Xa inhibitor) 60mg daily as anticoagulation. Workup in the hospital consisted of: CT of the head is reported as degenerative and nonspecific white matter changes most typical of remote ischemia. Large soft tissue lipoma right posterior occiput. EKG is reported as atrial fibrillation with premature ventricular or aberrantly inducted complexes. Left axis deviation. Right bundle branch block. Inferior infarct, age undetermined. Anterior infarct, age undetermined. Abnormal EKG. White blood cell is 6.3 which is normal. Sodium is 137 which is normal. The BUN is up for 1 and the creatinine is 1.28. Calcium is 9.6 which is normal. Initial serum glucose is 174. Coagulation study: PT of 12.0, INR 1.1 and PTT of 25.3. Coronavirus PCR: Nondetected. Review of Systems Review of system: The 12 point system was reviewed and apparent positive and negative per HPI. 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, CKD stage III, gout, back pain if stands too long, diverticular disease, benign colon polyps, BPH History of Any Multi-Drug Resistant Organisms: MRSA Date of last positivie culture/infection: 05/18/17 MDRO Source:: RIGHT LEG Past Surgical History: Heart Catheterization With Stent, Joint Replacement, Orthopedic Surgery, Tonsillectomy Additional Past Surgical History / Comment(s): 2013 PCI with 2 stents, infusaport R upper chest, 8 hand surgeries after injury in [place]-skin grafts/tendon repair-skin taken from L upper chest and bilateral ankle tendon donors, L total hip arthroplasty, colonoscopies/benign polyps. Past Anesthesia/Blood Transfusion Reactions: Previous Problems w/ Anesthesia Additional Past Anesthesia/Blood Transfusion Reaction / Comment(s): Difficulty waking with 2 surgeries performed while in the [employer] Date of Last Stent Placement:: 2013 Past Psychological History: No Psychological Hx Reported Smoking Status: Never smoker Past Alcohol Use History: None Reported Past Drug Use History: None Reported - Past Family History Mother Family Medical History: COPD, Diabetes Mellitus Additional Family Medical History / Comment(s): Mother of a [place] at the age of 61 yrs. She was a heavy smoker. Father History Unknown: Yes Family Medical History: Myocardial Infarction ([place]) Additional Family Medical History / Comment(s): Pt does not know father's medical history Medications and Allergies Home Medications Medication Instructions Recorded Confirmed Type Finasteride 5 mg PO DAILY 04/18/14 01/13/21 History Edoxaban Tosylate [Savaysa] 60 mg PO DAILY 12/29/16 01/13/21 History lisinopriL [Zestril] 20 mg PO DAILY #1 tab 02/08/17 01/13/21 Rx Furosemide [Lasix] 40 mg PO BID 02/05/19 01/13/21 History Metoprolol Tartrate [Lopressor] 25 mg PO BID 02/05/19 01/13/21 History Potassium Chloride [Klor-Con 10] 10 meq PO DAILY 02/05/19 01/13/21 History Fluticasone Nasal [place] [Flonase 1 spray EA NOSTRIL BID 10/18/19 01/13/21 History Nasal [place]] Oxybutynin Chloride 10 mg PO DAILY 10/18/19 01/13/21 History Allopurinol [Zyloprim] 300 mg PO DAILY 01/13/21 01/13/21 History Clotrimazole Cream [Lotrimin Cream] 1 applic TOPICAL BID PRN 01/13/21 01/13/21 History Lacosamide [Vimpat] 200 mg PO BID 01/13/21 01/13/21 History Nitroglycerin Sl Tabs [Nitrostat] 0.4 mg SL Q5M PRN 01/13/21 01/13/21 History Allergies Allergy/AdvReac Type Severity Reaction Status Date / Time Penicillins Allergy Unknown Verified 01/13/21 11:36 Childhood/Patient went into a coma Physical Examination - Vital Signs Vital Signs: Vital Signs Temp Pulse Resp BP Pulse Ox 01/13/21 13:39 66 19 102/61 100 01/13/21 12:00 47 L 18 101/61 93 L 01/13/21 10:05 97.8 F 66 20 107/63 100 Intake and Output 01/12/21 01/13/21 01/13/21 22:59 06:59 14:59 Other: Weight 159.665 kg GENERAL: The patient is lying in bed and is not in acute distress. CHEST: The heart rate is regular rate rhythm. No murmurs to auscultation. LUNG: Clear to auscultation bilaterally no wheezing noted throughout. Not labored breathing. ABDOMEN/GI: Bowel sounds present in all 4 quadrants. No tenderness to palpation throughout. INTEGUMENTARY: Bilateral lower extremity lymphedema with erythema of bilateral lower extremity and the its is seen in distal thigh portion but mostly it's below the knees and down bilaterally and again was significant lymphedema and is seems worse on the left especially left foot ankle region NEUROLOGICAL: Higher mental function: The patient is awake, alert, oriented to self, place and time. Patient is following commands. No aphasia and no neglect. Cranial nerves: The pupils are round, equal and reactive to light and accommodation. Visual berumen are full to confrontation throughout. Extraocular movement is intact no nystagmus is noted. Facial sensation is normal to touch throughout. The facial strength is normal throughout. Hearing is normal bilaterally to hand rub. Tongue is midline and moved [id number] without any difficulty. No dysarthria is noted. Shoulder shrug is normal bilaterally. Motor: Gait is deferred. The strength is 5 over 5 over bilateral upper extremities while able weak 3 of bilateral upper extremities. Right ankle 4/5 while left plantar flexion is 4/5 while dorsiflexion is limited but again patient has significant edema in left ankle region. Normal tone and bulk. Cerebellum: Normal finger to nose bilaterally. Sensation: Sensation is decreased from distal knee all way down to bilateral feet. Reflexes (right/left): 2+ bilateral upper extremities while 0-1 in bilateral l ower extremities Plantars are mute bilaterally. Results - Laboratory Findings CBC and BMP: 01/13/21 10:27 01/13/21 10:27 Abnormal Lab Findings: Abnormal Labs 01/13/21 01/13/21 10:27 10:27 Plt Count 132 L Chloride 97 L BUN 41 H Creatinine 1.28 H Glucose 174 H Total Bilirubin 2.0 H Assessment and Plan Assessment: This is a 70-year-old gentleman with multiple medical problem that presents to the emergency department for bilateral lower extremity weakness and shortness of breath. For the last 1 week the patient has been having worsening of his lymphedema and the and the last 5 days the patient has been having progressive lower extremity weakness left more than the right. He has a history of cellulitis and on examination this seems that he is having cellulitis with significant lymphedema. Bilateral lower extremity weakness with significant lymphedema left more than the right is due to cellulitis. It is not due to stroke or TIA. 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 The patient was restarted on Edoxaban 60mg daily by ED team. Consider starting the patient on Lipitor 20 mg daily. Physical therapy and occupation therapy is consulted by the ED team. Patient is currently on Vimpat 200 mg 1 tablet twice a day and the she doesn't have history of seizures and it was started by her primary team according to the patient for pain at. Upon looking literature it is used for neuropathic pain. Infection disease team is consulted for cellulitis. The patient needs to follow-up with his neurologist within 3 weeks upon discharge. There is no further workup is needed. Plan was discussed with the ED team as well as the primary team. Thank you for the consultation. Eliu Contreras MD Neuro-hospitalist Time with Patient: Greater than 30
[2021-01-13 17:00] LABS: Glucose,Whole Blood 132 mg/dL (75-99)
--- NOTE | 2021-01-13 17:39 | US ---
EXAMINATION TYPE: US venous doppler duplex LE BI DATE OF EXAM: 01/13/2021 5:14 PM COMPARISON: US CLINICAL HISTORY: swelling. SIDE PERFORMED: Bilateral TECHNIQUE: The lower extremity deep venous system is examined utilizing real time linear array sonog lelia with graded compression, doppler sonography and color-flow sonography. VESSELS IMAGED: Common Femoral Vein Deep Femoral Vein Greater Saphenous Vein * Femoral Vein Popliteal Vein Small Saphenous Vein * (* superficial vessels) Right Leg: Negative for DVT Left Leg: Negative for DVT IMPRESSION: No sign of deep vein thrombosis in both legs.
[2021-01-13] MEDS: FAMOTIDINE 20 MG/2 ML VIAL IV SCH (20:23)
[2021-01-13] MEDS: FUROSEMIDE 10 MG/ML 4 ML VIAL IV SCH (20:25)
[2021-01-13] MEDS: FLUTICASONE 50MCG/SPRAY NASAL 16GM EA NOSTRIL SCH (20:28)
[2021-01-13] MEDS: INSULIN ASPART (NovoLOG) 100 UNIT/ML VIAL SQ SCH (20:28)
[2021-01-13 20:32] LABS: Glucose,Whole Blood 211 mg/dL (75-99)
--- NOTE | 2021-01-14 00:30 | CONS ---
CONSULTATION DATE OF SERVICE: 01/13/2021. REASON FOR CONSULTATION: Lower extremity cellulitis HISTORY OF PRESENT ILLNESS: The patient is a 70-year-old male with a past medical history significant for bilateral lower extremity with previous history of lower extremity cellulitis in this patient who presented to the hospital this morning for evaluation of weakness in the leg, difficulty walking and also complaining of significant swelling to the lower extremities along with redness. The patient mentioned that his leg have been getting more swollen and red over the last few days. Denies having any history of any trauma. The patient did have diffuse swelling and redness and did have mild dull aching pain 4 to 5 out of 10 and no radiation. The patient did have a blister on the right lower leg, not related to formation of ulceration but no open wounds or any drainage. The patient did have some chills but denies high-grade fever. With these symptoms, the patient was evaluated by the ER physician. On arrival to the ER, patient was afebrile. The patient did have a normal white count. Creatinine was 1.2. Liver enzymes are normal. [place] PCR was negative. The patient did have a CT of the brain that was negative for any bleed. Chest x-ray, no acute cardiopulmonary process. The patient was admitted to the hospital. Infectious Disease was consulted for management of antibiotic therapy because of his PENICILLIN ALLERGY. REVIEW OF SYSTEMS: Positive points have been mentioned in HPI. Rest of systems are negative. PAST MEDICAL HISTORY: Atrial fibrillation, asthma, coronary artery disease, heart failure, hypertension, hyperlipidemia, osteoarthritis, prostate disorder, renal insufficiency, lower extremity ulcers. PAST SURGICAL HISTORY: PTCA with stent, tonsillectomy, colonoscopy, left hip placement, bilateral ankle tendon repair. SOCIAL HISTORY: Denies smoking, drinking or drug use. FAMILY HISTORY: Mother history of diabetes and COPD. Father history of CA. ALLERGIES: TO PENICILLIN. MEDICATIONS: Include the patient is currently on Zyloprim, clotrimazole, Pepcid, Proscar, Lasix, NovoLog, Zestril, Lopressor, Narcan, Ditropan and K-Dur. PHYSICAL EXAMINATION: Blood pressure 102/53 with a pulse of 62, temperature 97.5. He is 99% on 2 L nasal cannula. General description is an elderly male lying in bed in no distress. No tachypnea or accessory muscle of respiration use. HEENT: Examination shows no pallor or scleral icterus. Oral mucous membranes dry. No pharyngeal erythema or thrush. NECK: Trachea central. No thyromegaly. LUNGS: Unlabored breathing. Clear to auscultation anteriorly. HEART S1, S2. Regular rate and rhythm. ABDOMEN: Soft. Bilateral extremity diffuse swelling and redness, slightly warm to touch. He did have a superficial wound on the right side from a ruptured blister. No slough tissue noted. NEUROLOGICAL: The patient is awake, alert and oriented times three. Mood and affect normal. LABS: Hemoglobin is 14.4, white count 6.2, BUN of 41, creatinine 1.28. Liver enzymes normal. DIAGNOSTIC IMPRESSION AND PLAN: 1. Patient with bilateral lower extremity cellulitis in this patient who did have diffuse swelling and redness. Evidence of fluid overload likely representing a streptococcal cellulitis. 2. Patient with PENICILLIN ALLERGY that will limit the number of antibiotics safe to use. PLAN: 1. Lower extremity Dopplers obtained to make sure no evidence of any DVT in view of significant swelling. 2. Aquacel silver dressing to the right lateral thigh wound followed by Ishan wrap from just above to below the knee. 3. Cefazolin 2 grams q.8 hours. 4. We will follow on his clinical condition and culture to further adjust medication if needed. Thank you for this consultation. We will follow this patient along with you. MMODL / IJN: [id number] /
[2021-01-14 01:00] LABS: Hemoglobin A1C 7.6 % (4.0-6.0)
[2021-01-14] MEDS: INSULIN ASPART (NovoLOG) 100 UNIT/ML VIAL SQ SCH ×4 (05:40→20:58)
[2021-01-14 05:41] LABS: Glucose,Whole Blood 128 mg/dL (75-99)
[2021-01-14 07:57] LABS: Basophils % (A) 1 %; Eosinophils # (A) 0.2 k/uL (0-0.7); Eosinophils % (A) 4 %; HCT 39.2 % (39.0-53.0); HGB 12.7 gm/dL (13.0-17.5); Lymphocytes # (A) 1.5 k/uL (1.0-4.8); Lymphocytes % (A) 29 %; MCH 32.6 pg (25.0-35.0); MCHC 32.5 g/dL (31.0-37.0); MCV 100.3 fL (80.0-100.0); Macrocytosis Slight; Mean Platelet Volume 8.4; Monocytes # (A) 0.4 k/uL (0-1.0); Monocytes % (A) 8 %; Neutrophils % (A) 56 %; Platelet Count 135 k/uL (150-450); RBC 3.91 m/uL (4.30-5.90); RDW 15.1 % (11.5-15.5); WBC 5.3 k/uL (3.8-10.6)
[2021-01-14 07:59] LABS: Calcium 8.9 mg/dL (8.4-10.2); Potassium 3.9 mmol/L (3.5-5.1)
[2021-01-14] MEDS: METOPROLOL TARTRATE 25 MG TAB PO SCH ×2 (09:58→21:00)
[2021-01-14] MEDS: FUROSEMIDE 10 MG/ML 4 ML VIAL IV SCH ×2 (09:58→21:01)
[2021-01-14] MEDS: FLUTICASONE 50MCG/SPRAY NASAL 16GM EA NOSTRIL SCH ×2 (09:58→21:01)
[2021-01-14] MEDS: POTASSIUM CHLORIDE ER 10 MEQ TAB.ER.PRT PO SCH (09:58)
[2021-01-14] MEDS: LACOSAMIDE 50 MG TABLET PO SCH ×2 (09:59→21:00)
[2021-01-14] MEDS: FINASTERIDE 5 MG TAB PO SCH (09:59)
[2021-01-14] MEDS: OXYBUTYNIN CHLORIDE 5 MG TAB PO SCH (09:59)
[2021-01-14] MEDS: EDOXABAN TOSYLATE 60 MG TABLET PO SCH (09:59)
[2021-01-14] MEDS: allopurinoL 300 MG TAB PO SCH (09:59)
[2021-01-14] MEDS: FAMOTIDINE 20 MG/2 ML VIAL IV SCH (10:00)
[2021-01-14] MEDS ORDERED: REGADENOSON 0.4 MG/5 ML SYRINGE IV PRN (10:19)
[2021-01-14] MEDS ORDERED: CAFFEINE CITRATE 60 MG/3 ML VIAL IV PRN (10:19)
[2021-01-14] MEDS ORDERED: AMINOPHYLLINE 500 MG/20 ML VIAL IV PRN (10:19)
--- NOTE | 2021-01-14 10:52 | ECHOF ---
Referral Reason:LV function MEASUREMENTS -------- HEIGHT: 180.3 cm WEIGHT: 122.9 kg BP: 94/51 RVIDd: 2.8 cm (< 3.3) IVSd: 1.1 cm (0.6 - 1.1) LVIDd: 5.3 cm (3.9 - 5.3) LVPWd: 1.0 cm (0.6 - 1.1) IVSs: 2.0 cm LVIDs: 3.9 cm LVPWs: 1.6 cm Ao Diam: 3.4 cm (2.0 - 3.7) AV Cusp: 2.6 cm (1.5 - 2.6) LA Diam: 5.0 cm (2.7 - 3.8) MV EXCURSION: 17.722 mm (> 18.000) MV EF SLOPE: 112 mm/s (70 - 150) EPSS: 1.5 cm AV maxP.21 mmHg AV meanP.70 mmHg AR PHT: 601 ms RAP: 5.00 mmHg RVSP: 36.78 mmHg FINDINGS -------- This was a technically difficult study with suboptimal views. The left ventricular size is normal. Left ventricular wall thickness is normal. Overall left vent ricular systolic function is low-normal with, an EF between 50 - 55 %. The right ventricle is normal in size. The left atrium is moderately dilated. The right atrial size is normal. Lumason used Aortic valve is trileaflet and is mildly thickened. There is mild aortic regurgitation. The mitral valve is normal. The mitral valve leaflets are mildly thickened. Mild mitral regurgita tion is present. The tricuspid valve appears structurally normal. Mild tricuspid regurgitation present. Right vent ricular systolic pressure is normal at < 35 mmHg. There is no pulmonic regurgitation present. The aortic root size is normal. IVC Not well visulized. There is no pericardial effusion. CONCLUSIONS -------- 1. The left ventricular size is normal. 2. Left ventricular wall thickness is normal. 3. Overall left ventricular systolic function is low-normal with, an EF between 50 - 55 %. 4. The left atrium is moderately dilated. 5. Aortic valve is trileaflet and is mildly thickened. 6. There is mild aortic regurgitation. 7. The mitral valve leaflets are mildly thickened. 8. Mild mitral regurgitation is present. 9. Mild tricuspid regurgitation present. 10. There is no pericardial effusion. JOB TRAINING SPECIALIST: Clare Benavidez RDCS
--- NOTE | 2021-01-14 10:58 | P.CRDCN ---
History of Present Illness Consult date: 01/14/21 History of present illness: CHIEF COMPLAINT: CHF HISTORY OF PRESENT ILLNESS: This is a 70-year-old male with a past medical h istory significant for CHF, hypertension, hyperlipidemia, chronic atrial fibrillation on anticoagulation, COPD with home oxygen use, TIA, and coronary artery disease with previous PCI, most recently to the in 2013. Patient follows in the office with Dr. Espinoza. We have been asked to see the patient in consultation for CHF. Patient examined this morning at the bedside. Patient states he presented to the hospital secondary to weakness of his bilateral lower extremities. Patient has chronic lymphedema in his lower extremities and states it has not been any worse than normal. He does report feeling short of breath at times and having occasional chest tightness over the past 2 weeks. At the time of examination, he denies chest pain or shortness of breath. He was seen recently in the office and was scheduled for a Lexiscan stress test next month. DIAGNOSTICS: EKG reveals atrial fibrillation with controlled ventricular rate. Right bundle branch block. Chest xray no acute pulmonary process Laboratory data: WBC 5.3. Hemoglobin 12.7. Platelet count 135. Sodium 134. Potassium 3.9. BUN 41. Creatinine 1.35. Troponin negative 3 BNP 4100 Current home cardiac medications include lisinopril 20 mg daily, metoprolol 25 mg twice a day, Lasix 40 mg twice a day, Savaysa 60mg daily Echocardiogram completed in 2019 revealed ejection fraction 35-40% REVIEW OF SYSTEMS: At the time of my exam: CONSTITUTIONAL: Denies fever or chills. HEENT: Denies blurred vision, vision changes, or eye pain. Denies hemoptysis CARDIOVASCULAR: Denies chest pain, orthopnea, PND or palpitations RESPIRATORY: No shortness of breath. GASTROINTESTINAL: Denies abdominal pain. Denies nausea or vomiting. HEMATOLOGIC: Denies bleeding disorders. GENITOURINARY: Denies any blood in urine. SKIN: Denies pruitis. Denies rash. PHYSICAL EXAM: VITAL SIGNS: Reviewed. GENERAL: Well-developed in no acute distress. HEENT: Head is normocephalic. Pupils are equal, round. Sclerae anicteric. Mucous membranes of the mouth are moist. Neck supple. No JVD or thyromegaly LUNGS: Respirations even and unlabored. Lungs diminished bilaterally. HEART: Irregular rate and rhythm. S1 and S2 heard. Systolic murmur noted ABDOMEN: Soft. Nondistended. Nontender. EXTREMITIES: Normal range of motion. No clubbing or cyanosis. Peripheral pulses intact. Patient with chronic lymphedema to bilateral lower extremities and erythema of bilateral lower extremities. NEUROLOGIC: Awake and alert. Oriented x 3. ASSESSMENT: Bilateral lower extremity cellulitis Acute exacerbation of chronic systolic heart failure, EF 35-40% Coronary artery disease with previous PCI, most recently to in 2013 Chronic persistent atrial fibrillation, on anticoagulation with Savaysa Hypertension Hyperlipidemia COPD with home oxygen use History of TIA PLAN: Obtain 2-D echo to assess cardiac structure and function Continue IV Lasix 40 mg every 12 hours Monitor kidney function Daily weights Accurate I&O Patient to undergo Kay scan stress test tomorrow Further recommendations pending patient course Nurse practitioner note has been reviewed by physician. Signing provider agrees with the documented findings, assessment, and plan of care. 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, CKD stage III, gout, back pain if stands too long, diverticular disease, benign colon polyps, BPH History of Any Multi-Drug Resistant Organisms: MRSA Date of last positivie culture/infection: 05/18/17 MDRO Source:: RIGHT LEG Past Surgical History: Heart Catheterization With Stent, Joint Replacement, Orthopedic Surgery, Tonsillectomy Additional Past Surgical History / Comment(s): 2013 PCI with 2 stents, infusapor t R upper chest, 8 hand surgeries after injury in [place]-skin grafts/tendon repair-skin taken from L upper chest and bilateral ankle tendon donors, L total hip arthroplasty, colonoscopies/benign polyps. Past Anesthesia/Blood Transfusion Reactions: Previous Problems w/ Anesthesia Additional Past Anesthesia/Blood Transfusion Reaction / Comment(s): Difficulty waking with 2 surgeries performed while in the [employer] Date of Last Stent Placement:: 2013 Past Psychological History: No Psychological Hx Reported Smoking Status: Never smoker Past Alcohol Use History: None Reported Past Drug Use History: None Reported - Past Family History Mother Family Medical History: COPD, Diabetes Mellitus Additional Family Medical History / Comment(s): Mother of a [place] at the age of 61 yrs. She was a heavy smoker. Father History Unknown: Yes Family Medical History: Myocardial Infarction ([place]) Additional Family Medical History / Comment(s): Pt does not know father's medical history Medications and Allergies Home Medications Medication Instructions Recorded Confirmed Type Finasteride 5 mg PO DAILY 04/18/14 01/13/21 History Edoxaban Tosylate [Savaysa] 60 mg PO DAILY 12/29/16 01/13/21 History lisinopriL [Zestril] 20 mg PO DAILY #1 tab 02/08/17 01/13/21 Rx Furosemide [Lasix] 40 mg PO BID 02/05/19 01/13/21 History Metoprolol Tartrate [Lopressor] 25 mg PO BID 02/05/19 01/13/21 History Potassium Chloride [Klor-Con 10] 10 meq PO DAILY 02/05/19 01/13/21 History Fluticasone Nasal Dennard [Flonase 1 spray EA NOSTRIL BID 10/18/19 01/13/21 History Nasal Dennard] Oxybutynin Chloride 10 mg PO DAILY 10/18/19 01/13/21 History Allopurinol [Zyloprim] 300 mg PO DAILY 01/13/21 01/13/21 History Clotrimazole Cream [Lotrimin Cream] 1 applic TOPICAL BID PRN 01/13/21 01/13/21 History Lacosamide [Vimpat] 200 mg PO BID 01/13/21 01/13/21 History Nitroglycerin Sl Tabs [Nitrostat] 0.4 mg SL Q5M PRN 01/13/21 01/13/21 History Allergies Allergy/AdvReac Type Severity Reaction Status Date / Time Penicillins Allergy Unknown Verified 01/13/21 11:36 Childhood/Patient went into a coma Physical Exam Vitals: Vital Signs Temp Pulse Pulse Resp BP BP Pulse Ox 01/14/21 03:30 98.1 F 63 20 94/51 01/14/21 02:00 18 01/13/21 23:00 98.4 F 59 L 18 90/48 98 01/13/21 20:00 14 01/13/21 19:25 97.5 F L 62 14 102/53 99 01/13/21 16:00 98.8 F 56 L 20 119/69 100 01/13/21 13:39 66 19 102/61 100 01/13/21 12:00 47 L 18 101/61 93 L Intake and Output 01/13/21 01/14/21 01/14/21 22:59 06:59 14:59 Intake Total 240 360 Output Total 300 300 Balance -60 -300 360 Intake: Oral 240 360 Output: Urine 300 300 Other: Voiding Method Urinal Urinal # Bowel Movements 1 Weight 123 kg Results 01/14/21 07:23 01/14/21 07:23 Cardiac Enzymes 01/13/21 01/13/21 01/13/21 Range/Units 10:27 10:27 14:44 AST 29 (17-59) U/L Troponin I 0.016 <0.012 (0.000-0.034) ng/mL 01/13/21 Range/Units 17:38 AST (17-59) U/L Troponin I 0.014 (0.000-0.034) ng/mL Coagulation 01/13/21 Range/Units 10:27 PT 12.0 (9.0-12.0) sec APTT 25.3 (22.0-30.0) sec CBC 01/13/21 01/14/21 Range/Units 10:27 07:23 WBC 6.3 5.3 (3.8-10.6) k/uL RBC 4.44 3.91 L (4.30-5.90) m/uL Hgb 14.3 12.7 L (13.0-17.5) gm/dL Hct 43.7 39.2 (39.0-53.0) % Plt Count 132 L 135 L (150-450) k/uL Comprehensive Metabolic Panel 01/13/21 01/14/21 Range/Units 10:27 07:23 Sodium 137 134 L (137-145) mmol/L Potassium 4.2 3.9 (3.5-5.1) mmol/L Chloride 97 L 99 (98-107) mmol/L Carbon Dioxide 29 29 (22-30) mmol/L BUN 41 H 41 H (9-20) mg/dL Creatinine 1.28 H 1.35 H (0.66-1.25) mg/dL Glucose 174 H 126 H (74-99) mg/dL Calcium 9.6 8.9 (8.4-10.2) mg/dL AST 29 (17-59) U/L ALT 22 (4-49) U/L Alkaline Phosphatase 90 (38-126) U/L Total Protein 7.0 (6.3-8.2) g/dL Albumin 4.0 (3.5-5.0) g/dL Current Medications Generic Name Dose Route Start Last Admin Trade Name Freq PRN Reason Stop Dose Admin Allopurinol 300 mg 01/14/21 09:00 01/14/21 09:59 Allopurinol 300 Mg Tab PO 300 mg DAILY JASBIR Administration Aminophylline 100 mg 01/14/21 10:19 Aminophylline 500 Mg/20 Ml Vial IV 01/14/21 14:20 ONCE PRN Patient Response Caffeine Citrate 60 mg 01/14/21 10:19 Caffeine Citrate 60 Mg/3 Ml Vial IV 01/14/21 14:20 ONCE PRN Patient Response Clotrimazole 1 applic 01/13/21 12:25 Clotrimazole 1% Cream 15 Gm Tube TOPICAL BID PRN FUNGAL INFECTION Edoxaban 60 mg 01/13/21 13:15 01/14/21 09:59 Edoxaban Tosylate 60 Mg Tablet PO 60 mg DAILY JASBIR Administration Famotidine 20 mg 01/13/21 21:00 01/14/21 10:00 Famotidine 20 Mg/2 Ml Vial IV 20 mg Q12HR JASBIR Administration Finasteride 5 mg 01/13/21 13:15 01/14/21 09:59 Finasteride 5 Mg Tab PO 5 mg DAILY JASBIR Administration Fluticasone Propionate 1 spray 01/13/21 21:00 01/14/21 09:58 Fluticasone 50mcg/[place] Nasal 16gm EA NOSTRIL 1 spray BID JASBIR Administration Furosemide 40 mg 01/13/21 21:00 01/14/21 09:58 Furosemide 10 Mg/Ml 4 Ml Vial IV 40 mg Q12HR JASBIR Administration Cefazolin Sodium 2 gm/ Sodium 50 mls @ 100 mls/hr 01/13/21 17:00 01/13/21 23:13 Chloride IVPB 100 mls/hr Q8HR JASBIR Administration Insulin Aspart 0 unit 01/13/21 21:00 02/18/21 05:40 Insulin Aspart (Novolog) 100 Unit/Ml Vial SQ Not Given ACHS [facility] Protocol Lacosamide 200 mg 01/13/21 13:30 01/14/21 09:59 Lacosamide 50 Mg Tablet PO 200 mg BID JASBIR Administration Lisinopril 20 mg 01/13/21 13:15 01/13/21 13:36 Lisinopril 20 Mg Tab PO 20 mg DAILY JASBIR Administration Metoprolol Tartrate 25 mg 01/13/21 13:15 01/14/21 09:58 Metoprolol Tartrate 25 Mg Tab PO 25 mg BID JASBIR Administration Naloxone HCl 0.2 mg 01/13/21 12:21 Naloxone 0.4 Mg/Ml 1 Ml Vial IV Q2M PRN Opioid Reversal Oxybutynin Chloride 10 mg 01/13/21 13:15 01/14/21 09:59 Oxybutynin Chloride 5 Mg Tab PO 10 mg DAILY JASBIR Administration Potassium Chloride 10 meq 01/13/21 13:15 01/14/21 09:58 Potassium Chloride Er 10 Meq Tab.Er.Prt PO 10 meq DAILY JASBIR Administration Regadenoson 0.4 mg 01/14/21 10:19 Regadenoson 0.4 Mg/5 Ml Syringe IV 01/14/21 14:20 ONCE PRN Per Protocol Intake and Output 01/13/21 01/14/21 01/14/21 22:59 06:59 14:59 Intake Total 240 360 Output Total 300 300 Balance -60 -300 360 Intake: Oral 240 360 Output: Urine 300 300 Other: Voiding Method Urinal Urinal # Bowel Movements 1 Weight 123 kg 01/14/21 07:23 01/14/21 07:23
[2021-01-14 11:28] VITALS: BMI 35.7
[2021-01-14] MEDS: lisinopriL 20 MG TAB PO SCH (11:57)
[2021-01-14 12:17] LABS: Glucose,Whole Blood 158 mg/dL (75-99)
[2021-01-14 16:42] LABS: Glucose,Whole Blood 165 mg/dL (75-99)
[2021-01-14 20:33] LABS: Glucose,Whole Blood 138 mg/dL (75-99)
[2021-01-14] MEDS: FAMOTIDINE 20 MG TAB PO SCH (21:01)
--- NOTE | 2021-01-14 22:27 | P.PN ---
Subjective Progress Note Date: 01/14/21 Principal diagnosis: Bilateral lower extremity cellulitis, with right L once with purulent base Acute on Chronic systolic congestive heart failure, ejection fraction 35-40% per echocardiogram 2018 69-year-old man with past medical history of atrial fibrillation, asthma, coronary artery disease, hyperlipidemia, hypertension, osteoarthritis, subcutaneous B-cell lymphoma, wounds in bilateral ankles, chronic left leg weakness which was evaluated by neurologist on 10/22/2019 and found due to cellulitis and leg swelling. Also patient has a history of lymphoma and he finishes chemotherapy in 2017, he followed up with Dr. Haddad last month for routine visit, with no new recommendation as per patient Patient presents this time because of weakness in both legs for Monday 5 days ago and as per family at bedside is more than 5 days, associated with some exertional dyspnea. He denies chest pain, he has chronic cough with clear phlegm. No abdominal pain or diarrhea or vomiting. No headache or weakness or numbness. Patient also does not have pain in his lower extremity, actually he has loss of sensation from diabetic neuropathy His both legs are swollen, red and warm to touch especially more on the right side also on the right side he has a 2 inches superficial wound with purulent base and surrounding redness suspicious for cellulitis Vitas looks stable, is slightly bradycardic at 47, he saturating 93% 200% on 2 L oxygen via nasal cannula. Labs are unremarkable including CBC, INR. Patient states that he takes anticoagulation savaysa 60 mg daily by his trackwalker Dr. Espinoza EKG showing atrial fibrillation's at 64 with aberrant conducted complexes, PVC and draped mental branch block, creatinine is at baseline of 1.28, with baseline is 1.1-1.4. Glucose 174. Liver exams not elevated, bilirubin is 2.0. Coronavirus not detected. ProBNP is 4100 CT of the brain: No acute process. Large soft tissue lipoma Chest x-ray: No acute process. In the emergency room he got 1 dose of Lasix 60 mg 01/14/2021 Patient is currently resting in the bed. Still having shortness of breath at baseline. No complaints of fever or chills. Currently being continued on a ntibiotics in the form of cefazolin. Wound cultures are growing gram-negative bacilli and group D Enterococcus species. ID is on board. Laboratory data showed WBC 5.3 hemoglobin 12.7 and platelets 135 BUN 41 and creatinine 1.35 Patient is being continued on IV Lasix 40 mg twice daily due to acute on chronic CHF with systolic dysfunction and cardiology is following. 2D echocardiogram is ordered. Monitor renal function. Neurology recommends no further intervention at this time. Patient is anticoagulation with edoxaban due to chronic persistent atrial fibrillation. Cardiology is planning for Lexiscan stress test tomorrow. Active Medications Generic Name Dose Route Start Last Admin Trade Name Freq PRN Reason Stop Dose Admin Allopurinol 300 mg 01/14/21 09:00 01/14/21 09:59 Allopurinol 300 Mg Tab PO 300 mg DAILY JASBIR Administration Clotrimazole 1 applic 01/13/21 12:25 Clotrimazole 1% Cream 15 Gm Tube TOPICAL BID PRN FUNGAL INFECTION Edoxaban 60 mg 01/13/21 13:15 01/14/21 09:59 Edoxaban Tosylate 60 Mg Tablet PO 60 mg DAILY JASBIR Administration Famotidine 20 mg 01/14/21 21:00 01/14/21 21:01 Famotidine 20 Mg Tab PO 20 mg Q12HR JASBIR Administration Finasteride 5 mg 01/13/21 13:15 01/14/21 09:59 Finasteride 5 Mg Tab PO 5 mg DAILY JASBIR Administration Fluticasone Propionate 1 spray 01/13/21 21:00 01/14/21 21:01 Fluticasone 50mcg/[place] Nasal 16gm EA NOSTRIL 1 spray BID JASBIR Administration Furosemide 40 mg 01/13/21 21:00 01/14/21 21:01 Furosemide 10 Mg/Ml 4 Ml Vial IV 40 mg Q12HR JASBIR Administration Cefazolin Sodium 2 gm/ Sodium 50 mls @ 100 mls/hr 01/13/21 17:00 01/14/21 16:45 Chloride IVPB Not Given Q8HR JASBIR Insulin Aspart 0 unit 01/13/21 21:00 01/14/21 20:58 Insulin Aspart (Novolog) 100 Unit/Ml Vial SQ 1 unit ACHS JASBIR Administration Protocol Lacosamide 200 mg 01/13/21 13:30 01/14/21 21:00 Lacosamide 50 Mg Tablet PO 200 mg BID JASBIR Administration Lisinopril 20 mg 01/13/21 13:15 01/14/21 11:57 Lisinopril 20 Mg Tab PO Not Given DAILY JASBIR Metoprolol Tartrate 25 mg 01/13/21 13:15 01/14/21 21:00 Metoprolol Tartrate 25 Mg Tab PO 25 mg BID JASBIR Administration Naloxone HCl 0.2 mg 01/13/21 12:21 Naloxone 0.4 Mg/Ml 1 Ml Vial IV Q2M PRN Opioid Reversal Oxybutynin Chloride 10 mg 01/13/21 13:15 01/14/21 09:59 Oxybutynin Chloride 5 Mg Tab PO 10 mg DAILY AJSBIR Administration Potassium Chloride 10 meq 01/13/21 13:15 01/14/21 09:58 Potassium Chloride Er 10 Meq Tab.Er.Prt PO 10 meq DAILY JASBIR Administration Objective - Vital Signs Vital signs: Vital Signs Temp 97.7 F 01/14/21 12:00 Pulse 69 01/14/21 12:00 Resp 19 01/14/21 12:00 BP 105/55 01/14/21 12:00 Pulse Ox 99 01/14/21 12:00 Intake & Output 01/13/21 01/14/21 01/14/21 18:59 06:59 18:59 Intake Total 240 600 Output Total 600 600 725 Balance -360 -600 -125 Weight 159.665 kg 123 kg 123 kg Intake: Oral 240 600 Output: Urine 600 600 725 Other: Voiding Method Urinal Urinal Urinal # Voids 1 # Bowel Movements 1 - Exam -GENERAL: The patient is alert and oriented x3, not in any acute distress. Obese HEENT: Pupils are round and equally reacting to light. EOMI. No scleral icterus. No conjunctival pallor. Normocephalic, atraumatic. No pharyngeal erythema. No thyromegaly. CARDIOVASCULAR: S1 and S2 present. No murmurs, rubs, or gallops. PULMONARY: Chest is clear to auscultation, no wheezing or crackles. ABDOMEN: Soft, nontender, nondistended, normoactive bowel sounds. No palpable organomegaly. MUSCULOSKELETAL: No joint swelling or deformity. -EXTREMITIES: No cyanosis, clubbing, or pedal edema. Right leg warm, swollen with 1 to the right upper lateral leg about 2-3 inches in diameter with purulent base. Left leg is less inflamed NEUROLOGICAL: Gross neurological examination did not reveal any focal deficits. SKIN: No rashes. No petechiae - Labs CBC & Chem 7: 01/14/21 07:23 01/14/21 07:23 Labs: Abnormal Lab Results - Last 24 Hours (Table) 01/13/21 01/13/21 01/13/21 Range/Units 16:40 17:38 20:24 RBC (4.30-5.90) m/uL Hgb (13.0-17.5) gm/dL MCV (80.0-100.0) fL Plt Count (150-450) k/uL Sodium (137-145) mmol/L BUN (9-20) mg/dL Creatinine (0.66-1.25) mg/dL Glucose (74-99) mg/dL POC Glucose (mg/dL) 132 H 211 H (75-99) mg/dL Hemoglobin A1c 7.6 H (4.0-6.0) % 01/14/21 01/14/21 01/14/21 Range/Units 05:38 07:23 07:23 RBC 3.91 L (4.30-5.90) m/uL Hgb 12.7 L (13.0-17.5) gm/dL MCV 100.3 H (80.0-100.0) fL Plt Count 135 L (150-450) k/uL Sodium 134 L (137-145) mmol/L BUN 41 H (9-20) mg/dL Creatinine 1.35 H (0.66-1.25) mg/dL Glucose 126 H (74-99) mg/dL POC Glucose (mg/dL) 128 H (75-99) mg/dL Hemoglobin A1c (4.0-6.0) % 01/14/21 Range/Units 11:47 RBC (4.30-5.90) m/uL Hgb (13.0-17.5) gm/dL MCV (80.0-100.0) fL Plt Count (150-450) k/uL Sodium (137-145) mmol/L BUN (9-20) mg/dL Creatinine (0.66-1.25) mg/dL Glucose (74-99) mg/dL POC Glucose (mg/dL) 158 H (75-99) mg/dL Hemoglobin A1c (4.0-6.0) % Microbiology - Last 24 Hours (Table) 01/13/21 13:41 Gram Stain - Preliminary Leg - Right Wound Culture - Preliminary Gram Neg Bacilli Group D Enterococcus Assessment and Plan Assessment: Bilateral lower extremity cellulitis, with right L once with purulent base Acute on Chronic systolic congestive heart failure, ejection fraction 35-40% per echocardiogram 2019 Bilateral lower extremity weakness and difficulty in ambulation, patient denies back pain or headache. Most likely is due to his cellulitis . no further w/u as per neurology Hypertension Hyperlipidemia Diabetic neuropathy with loss of sensation in the lower extremities Morbid obesity with BMI of 46.4 Chronic atrial fibrillation Chronic kidney disease stage III History of coronary artery disease, status post stent placement B cell lymphoma Bilateral lymphedema and wants in both ankles Chronic left leg weakness Plan: This is a pleasant 70 days old male with bilateral leg cellulitis, more on the right side with history of MRSA. And due to his drug ALLERGY were going to consult infectious disease team for antibiotic. f/u wound culture c/w IV lasix Labs and medication were reviewed.. Continue same treatment. Continue with symptomatic treatment. Resume home medication. Monitor lytes and vitals. DVT and GI prophylaxis. Further recommendations depends on the clinical course of the patient DVT prophylaxis: savaysa GI Prophylaxis: Pepcid PT/OT: Pending Prognosis is guarded Time with Patient: Greater than 30
--- NOTE | 2021-01-14 22:59 | PN ---
PROGRESS NOTE DATE OF SERVICE: 01/14/2021 REASON FOR FOLLOWUP: Bilateral lower extremity cellulitis. INTERVAL HISTORY: The patient is currently afebrile. The patient is breathing comfortably. The patient denies having any chest pain or shortness of breath or cough. No nausea, no vomiting, no abdominal pain or any worsening pain to the lower extremity. PHYSICAL EXAMINATION: Blood pressure 123/65 with a pulse of 82, temperature 97.3. He is 97% on 2 L nasal cannula. General description is an elderly male up in the chair in no distress. RESPIRATORY SYSTEM: Unlabored breathing. Clear to auscultation anteriorly. HEART: S1, S2. Regular rate and rhythm. ABDOMEN: Soft. No tenderness. LEGS: Swelling and redness slightly decreased. LABS: Hemoglobin is 12.7, white count 5.3. Creatinine is 1.35. DIAGNOSTIC IMPRESSION AND PLAN: Patient with bilateral lower extremity cellulitis in this patient who clinically responded to the cefazolin. That will be continued with a plan to finish therapy with oral antibiotics and continue supportive care. MMODL / IJN: [id number] /
[2021-01-15 05:57] LABS: Glucose,Whole Blood 154 mg/dL (75-99)
[2021-01-15] MEDS: INSULIN ASPART (NovoLOG) 100 UNIT/ML VIAL SQ SCH ×4 (06:27→20:37)
[2021-01-15 08:12] LABS: Calcium 8.9 mg/dL (8.4-10.2); Potassium 3.8 mmol/L (3.5-5.1)
[2021-01-15 08:22] LABS: Basophils % (A) 0 %; Eosinophils # (A) 0.2 k/uL (0-0.7); Eosinophils % (A) 3 %; HCT 39.1 % (39.0-53.0); HGB 12.5 gm/dL (13.0-17.5); Lymphocytes # (A) 1.2 k/uL (1.0-4.8); Lymphocytes % (A) 24 %; MCH 31.5 pg (25.0-35.0); MCV 98.3 fL (80.0-100.0); Macrocytosis Slight; Mean Platelet Volume 8.9; Monocytes # (A) 0.4 k/uL (0-1.0); Monocytes % (A) 7 %; Neutrophils # (A) 3.2 k/uL (1.3-7.7); Neutrophils % (A) 63 %; Platelet Count 138 k/uL (150-450); RBC 3.97 m/uL (4.30-5.90); RDW 15.4 % (11.5-15.5); WBC 5.1 k/uL (3.8-10.6)
[2021-01-15 12:15] LABS: Glucose,Whole Blood 144 mg/dL (75-99)
[2021-01-15] MEDS: OXYBUTYNIN CHLORIDE 5 MG TAB PO SCH (12:15)
[2021-01-15] MEDS: POTASSIUM CHLORIDE ER 10 MEQ TAB.ER.PRT PO SCH (12:15)
[2021-01-15] MEDS: FAMOTIDINE 20 MG TAB PO SCH ×2 (12:15→20:36)
[2021-01-15] MEDS: FUROSEMIDE 10 MG/ML 4 ML VIAL IV SCH ×2 (12:15→20:37)
[2021-01-15] MEDS: allopurinoL 300 MG TAB PO SCH (12:15)
[2021-01-15] MEDS: FINASTERIDE 5 MG TAB PO SCH (12:15)
[2021-01-15] MEDS: LACOSAMIDE 50 MG TABLET PO SCH ×2 (12:16→20:36)
[2021-01-15] MEDS: lisinopriL 20 MG TAB PO SCH (12:16)
[2021-01-15] MEDS: EDOXABAN TOSYLATE 60 MG TABLET PO SCH (12:16)
[2021-01-15] MEDS: FLUTICASONE 50MCG/SPRAY NASAL 16GM EA NOSTRIL SCH ×2 (12:16→20:50)
[2021-01-15] MEDS: METOPROLOL TARTRATE 25 MG TAB PO SCH ×2 (12:21→20:36)
--- NOTE | 2021-01-15 12:28 | NM ---
EXAMINATION TYPE: NM stress lexiscan cardiolite DATE OF EXAM: 01/15/2021 COMPARISON: NONE HISTORY: Chest pain short of breath TECHNIQUE: After the intravenous administration of 9.4 mCi Tc 99m Sestamibi - Cardiolite resting SPE CT images acquired 120 minutes post injection. The patient received 0.4mg Lexiscan, 26.2 mCi Tc 99m Sestamibi - Stress images obtained [address] injection . FINDINGS: Review of stress and rest SPECT images has diminished radiotracer accumulation along the inferior wal l greater on the stress images than the rest images. Stress-induced ischemic change may be present. G ated analysis shows normal wall motion. Global hypokinesia may be present. There is an estimated left ventricular ejection fraction of 45 %, which is low. Normal greater than 50%. IMPRESSION: 1. Mild stress-induced ischemic change inferior wall. 2. Low ejection fraction 45%. 3. Global hypokinesia
[2021-01-15] MEDS ORDERED: ALPRAZolam 0.5 MG TAB PO PRN (12:55)
[2021-01-15] MEDS ORDERED: ALPRAZolam 0.25 MG TAB PO PRN (12:55)
[2021-01-15] MEDS ORDERED: NITROGLYCERIN SL TABS 0.4 MG TAB SUBLINGUAL PRN (12:55)
--- NOTE | 2021-01-15 13:35 | PN ---
PROGRESS NOTE DATE OF SERVICE: 01/15/2021 REASON FOR FOLLOWUP: Bilateral lower extremity cellulitis. INTERVAL HISTORY: The patient is currently afebrile. Patient is breathing comfortably. The patient denies having any chest pain or any cough. No abdominal pain. Overall pain and discomfort has improved. PHYSICAL EXAMINATION: Blood pressure is 98/56, pulse of 49, temperature is 97.8. He is 100% on 2 L nasal cannula. General description is an elderly male lying in bed in no distress. RESPIRATORY SYSTEM: Unlabored breathing, clear to auscultation anteriorly. HEART: S1, S2. Regular rate and rhythm. ABDOMEN: Soft, no tenderness. Leg swelling and redness has slightly decreased. LABS: Hemoglobin is 12.5, white count 5.1, BUN of 44, creatinine 1.51. Local culture showing E coli, Enterococcus faecalis, possible colonization. DIAGNOSTIC IMPRESSION AND PLAN: Patient with bilateral lower extremity cellulitis, some superficial ulceration from ruptured blister. Patient overall improvement on cefazolin. Finish therapy with oral Keflex. Local care as ordered along with Ishan wrap. Continue supportive care. MMODL / IJN: [id number] /
--- NOTE | 2021-01-15 14:44 | P.PN ---
Subjective Progress Note Date: 01/15/21 CHIEF COMPLAINT: CHF HISTORY OF PRESENT ILLNESS: 01/14/2021 This is a 70-year-old male with a past medical history significant for CHF, hypertension, hyperlipidemia, chronic atrial fibrillation on anticoagulation, COPD with home oxygen use, TIA, and coronary artery disease with previous PCI, most recently to the in 2013. Patient follows in the office with Dr. Espinoza. We have been asked to see the patient in consultation for CHF. Patient examined this morning at the bedside. Patient states he presented to the hospital secondary to weakness of his bilateral lower extremities. Patient has chronic lymphedema in his lower extremities and states it has not been any worse than normal. He does report feeling short of breath at times and having occasional chest tightness over the past 2 weeks. At the time of examination, he denies chest pain or shortness of breath. He was seen recently in the office and was scheduled for a Lexiscan stress test next month. 01/15/2021 Patient examined this morning at the bedside. He denies chest pain or pressure. He remains on IV Lasix 40 mg every 12 hours. Creatinine 1.51 today, up from 1.35 yesterday. Fluid balance over the last 24 hours is -1990 mL. Lexiscan stress test performed today reveals mild stress-induced ischemic changes of inferior wall. PHYSICAL EXAM: VITAL SIGNS: Reviewed. GENERAL: Well-developed in no acute distress. HEENT: Head is normocephalic. Pupils are equal, round. Sclerae anicteric. Mucous membranes of the mouth are moist. Neck supple. No JVD or thyromegaly LUNGS: Respirations even and unlabored. Lungs diminished bilaterally. HEART: Irregular rate and rhythm. S1 and S2 heard. Systolic murmur noted ABDOMEN: Soft. Nondistended. Nontender. EXTREMITIES: Normal range of motion. No clubbing or cyanosis. Peripheral pulses intact. Patient with chronic lymphedema to bilateral lower extremities and erythema of bilateral lower extremities. NEUROLOGIC: Awake and alert. Oriented x 3. ASSESSMENT: Bilateral lower extremity cellulitis Acute exacerbation of chronic systolic heart failure, EF 35-40% Coronary artery disease with previous PCI, most recently to in 2013 Chronic persistent atrial fibrillation, on anticoagulation with Savaysa Hypertension Hyperlipidemia COPD with home oxygen use History of TIA PLAN: Continue current cardiac medications Patient to undergo cardiac cath tomorrow with Dr. Skaf secondary to abnormal blade scan Nurse practitioner note has been reviewed by physician. Signing provider agrees with the documented findings, assessment, and plan of care. Objective - Vital Signs Vital signs: Vital Signs Temp 97.8 F 01/15/21 04:00 Pulse 49 L 01/15/21 08:00 Resp 17 01/15/21 08:00 BP 98/56 01/15/21 04:45 Pulse Ox 100 01/15/21 04:00 Intake & Output 01/14/21 01/15/21 01/15/21 18:59 06:59 18:59 Intake Total 840 240 Output Total 1450 1380 200 Balance -610 -1380 40 Weight 123 kg 161.5 kg 161.5 kg Intake: Oral 840 240 Output: Urine 1450 1380 200 Other: Voiding Method Urinal Urinal Urinal # Voids 1 1 1 - Labs CBC & Chem 7: 01/15/21 07:20 01/15/21 07:20 Labs: Abnormal Lab Results - Last 24 Hours (Table) 01/14/21 01/14/21 01/15/21 Range/Units 16:40 20:32 05:55 RBC (4.30-5.90) m/uL Hgb (13.0-17.5) gm/dL Plt Count (150-450) k/uL Sodium (137-145) mmol/L Chloride (98-107) mmol/L Carbon Dioxide (22-30) mmol/L BUN (9-20) mg/dL Creatinine (0.66-1.25) mg/dL Glucose (74-99) mg/dL POC Glucose (mg/dL) 165 H 138 H 154 H (75-99) mg/dL 01/15/21 01/15/21 01/15/21 Range/Units 07:20 07:20 12:14 RBC 3.97 L (4.30-5.90) m/uL Hgb 12.5 L (13.0-17.5) gm/dL Plt Count 138 L (150-450) k/uL Sodium 136 L (137-145) mmol/L Chloride 97 L (98-107) mmol/L Carbon Dioxide 31 H (22-30) mmol/L BUN 44 H (9-20) mg/dL Creatinine 1.51 H (0.66-1.25) mg/dL Glucose 152 H (74-99) mg/dL POC Glucose (mg/dL) 144 H (75-99) mg/dL Microbiology - Last 24 Hours (Table) 01/13/21 13:41 Gram Stain - Final Leg - Right Wound Culture - Final Escherichia coli Enterococcus faecalis
[2021-01-15 16:59] LABS: Glucose,Whole Blood 138 mg/dL (75-99)
[2021-01-15] MEDS ORDERED: SODIUM CHLORIDE 0.9% 1,000 ML in EMPTY BAG 1 BAG IV ONE (20:00)
[2021-01-15 20:21] LABS: Glucose,Whole Blood 160 mg/dL (75-99)
[2021-01-16] MEDS: METOPROLOL TARTRATE 25 MG TAB PO SCH ×3 (04:55→19:20)
[2021-01-16 06:16] LABS: Glucose,Whole Blood 132 mg/dL (75-99)
[2021-01-16] MEDS: OXYBUTYNIN CHLORIDE 5 MG TAB PO SCH (06:40)
[2021-01-16] MEDS: FAMOTIDINE 20 MG TAB PO SCH ×2 (06:44→20:51)
[2021-01-16] MEDS: EDOXABAN TOSYLATE 60 MG TABLET PO SCH (06:44)
[2021-01-16] MEDS: allopurinoL 300 MG TAB PO SCH (06:44)
[2021-01-16] MEDS: LACOSAMIDE 50 MG TABLET PO SCH ×2 (06:44→20:51)
[2021-01-16] MEDS: FINASTERIDE 5 MG TAB PO SCH (06:44)
[2021-01-16] MEDS: POTASSIUM CHLORIDE ER 10 MEQ TAB.ER.PRT PO SCH (06:45)
[2021-01-16] MEDS ORDERED: ATORVASTATIN 80 MG TAB PO ONE (07:00)
[2021-01-16] MEDS ORDERED: HEPARIN SODIUM,PORCINE 10,000 UNIT in SODIUM CHLORIDE 0.9% 1,000 ML IRRIGATION PRN (07:00)
[2021-01-16] MEDS ORDERED: HEPARIN SODIUM,PORCINE 2,500 UNIT in SODIUM CHLORIDE 0.9% 250 ML IRRIGATION PRN (07:00)
[2021-01-16] MEDS ORDERED: ASPIRIN 325 MG TAB PO ONE (07:00)
[2021-01-16 07:26] LABS: Basophils % (A) 1 %; Eosinophils # (A) 0.3 k/uL (0-0.7); Eosinophils % (A) 5 %; HGB 13.4 gm/dL (13.0-17.5); Lymphocytes # (A) 1.4 k/uL (1.0-4.8); Lymphocytes % (A) 26 %; MCH 32.6 pg (25.0-35.0); MCHC 32.7 g/dL (31.0-37.0); MCV 99.7 fL (80.0-100.0); Macrocytosis Slight; Mean Platelet Volume 8.7; Monocytes # (A) 0.4 k/uL (0-1.0); Monocytes % (A) 7 %; Neutrophils # (A) 3.2 k/uL (1.3-7.7); Neutrophils % (A) 60 %; Platelet Count 145 k/uL (150-450); RBC 4.11 m/uL (4.30-5.90); RDW 14.8 % (11.5-15.5); WBC 5.3 k/uL (3.8-10.6)
[2021-01-16 07:44] LABS: Calcium 8.9 mg/dL (8.4-10.2); Potassium 3.8 mmol/L (3.5-5.1)
[2021-01-16] MEDS: INSULIN ASPART (NovoLOG) 100 UNIT/ML VIAL SQ SCH ×4 (08:22→20:51)
[2021-01-16] MEDS ORDERED: VERAPAMIL 2.5 MG/ML 2 ML AMP ONE (09:21)
[2021-01-16] MEDS ORDERED: fentaNYL (PF) 50 MCG/ML 2 ML AMP ONE (09:21)
[2021-01-16] MEDS ORDERED: LIDOCAINE 1% INJ 10MG/ML (20 ML MDV) ONE (09:21)
[2021-01-16] MEDS ORDERED: HEPARIN SODIUM 1,000 UN/ML (10ML VL) ONE (09:21)
[2021-01-16] MEDS ORDERED: fentaNYL (PF) 50 MCG/ML 2 ML AMP IVP ONE (09:58)
[2021-01-16] MEDS ORDERED: MIDAZOLAM 2 MG/2 ML VIAL IVP ONE (09:58)
[2021-01-16] MEDS ORDERED: LIDOCAINE 1% INJ 10MG/ML (20 ML MDV) SQ ONE (09:59)
[2021-01-16] MEDS: VERAPAMIL SYRINGE (5 MG/10 ML) INTRAARTER ONE ×2 (10:00→10:09)
[2021-01-16] MEDS ORDERED: IV FLUID CONTINUATION 1,000 ML IV ONE (10:02)
[2021-01-16] MEDS ORDERED: HEPARIN SODIUM 1,000 UN/ML (10ML VL) IV ONE (10:04)
[2021-01-16] MEDS ORDERED: IOPAMIDOL-370 125ML BTL INJ ONE (10:08)
[2021-01-16] MEDS ORDERED: RX INFO: IV CONTRAST WAS GIVEN 1 EACH MISC MISCELLANE PRN (10:16)
[2021-01-16] MEDS ORDERED: SODIUM CHLORIDE 0.9% 1,000 ML IV SCH (10:30)
--- NOTE | 2021-01-16 10:48 | CC ---
CARDIAC CATHETERIZATION REPORT DATE OF SERVICE: January 16, 2021. PERFORMING PHYSICIAN: Pato Talley MD. PROCEDURE PERFORMED: 1. Selective right and left coronary angiogram. 2. Left heart catheterization. INDICATION: This is a 70-year-old gentleman with hypertension and dyslipidemia who sees Dr. Bar in the office on a regular basis, who presented to the hospital with chest discomfort and shortness of breath. He underwent myocardial perfusion imaging stress test and that came in abnormal showing reversible defect involving the anterior wall of the left ventricle. Because of that, a heart catheterization was advised. APPROACH: Right radial artery. COMPLICATION: None. LEVEL OF SEDATION: Moderate with sedation length of 12 minutes. PROCEDURE DESCRIPTION: After obtaining informed consent, the patient was brought to cardiac cath lab technologist. The right radial artery was cannulated using micropuncture technique and a micropuncture wire passed easily, then I placed a 6-Danish sheath in the right radial artery. 2 mg of verapamil IA and 10,000 units of heparin IV given. Selective right and left coronary angiogram performed with JR4 and JL3.5 catheters. Left heart catheterization was performed using 5-Danish pigtail catheter. The procedure was completed without any complication. SELECTIVE CORONARY ANGIOGRAM: The RCA is a large caliber vessel. It is a dominant vessel and appeared to have mild disease only. The left main is calcified with mild disease only. It gives rise into the left circumflex and left anterior descending artery. The left circumflex is a large caliber vessel. It is a codominant vessel. The proximal circumflex is angiographically normal. It gives rise into first and second obtuse marginal branches. The first and second obtuse marginal branches appeared to have mild disease only. The mid left circumflex is angiographically normal and the circumflex distally is normal and bifurcates into PDA and PLV branches. Both appeared to be angiographically normal. The LAD: The proximal LAD has a lesion appeared to be in the range of 60% seen mostly on the PEOPLES caudal view and that lesion appeared to be extremely calcified. The proximal LAD gives rise into the first diagonal branch which appeared to have mild ostial disease. The mid and distal LAD appeared to have mild disease only. HEMODYNAMICS: The LVEDP was about 10 to 12 mmHg without significant gradient across the aortic valve. CONCLUSION: 1. Intermediate to severe disease involving the proximal LAD with a calcified tubular lesion appeared to be in the range of 60%. 2. Normal left ventricular end-diastolic pressure. POSTPROCEDURE MANAGEMENT: 1. Medical treatment. 2. Follow up with the patient. HARVEY / SHARONN: [id number] /
[2021-01-16] MEDS: FUROSEMIDE 10 MG/ML 4 ML VIAL IV SCH ×2 (11:03→20:51)
[2021-01-16] MEDS: FLUTICASONE 50MCG/SPRAY NASAL 16GM EA NOSTRIL SCH ×2 (11:03→20:52)
[2021-01-16] MEDS: lisinopriL 20 MG TAB PO SCH (11:05)
[2021-01-16 11:46] LABS: Glucose,Whole Blood 124 mg/dL (75-99)
[2021-01-16] MEDS ORDERED: PETROLATUM, WHITE OINT 50 GM TUBE TOPICAL PRN (15:24)
--- NOTE | 2021-01-16 15:42 | PN ---
PROGRESS NOTE DATE OF SERVICE: 01/16/2021 REASON FOR FOLLOWUP: Bilateral lower extremity cellulitis. INTERVAL HISTORY: The patient is currently afebrile. Patient is breathing comfortably. Patient denies having any chest pain. Complaining of some shortness of breath. Occasional cough. No nausea, no vomiting. No abdominal pain. Pain to the lower extremity. PHYSICAL EXAMINATION: Blood pressure 120/67, pulse of 48. Temperature 97.6. He is 100% on 2 L nasal cannula. General description: Elderly male up in the chair in no distress. Respiratory system: Unlabored breathing, decreased intensity in breath sounds. No wheeze. Heart S1, S2. Regular rate and rhythm. ABDOMEN: Soft. No tenderness. LEGS are currently wrapped up. Overall redness has decreased. LABS: Hemoglobin 13.4, white count 5.2, BUN of 28, creatinine 1.1. DIAGNOSTIC IMPRESSION AND PLAN: Patient with bilateral lower extremity cellulitis, right greater than the left, with some superficial blister formation. Culture E coli focus. However, the patient is clinically responding to the Cefazolin that will be continued, to finish therapy with oral Keflex. MMODL / IJN: [id number] /
[2021-01-16 16:40] LABS: Glucose,Whole Blood 134 mg/dL (75-99)
[2021-01-16 20:56] LABS: Glucose,Whole Blood 144 mg/dL (75-99)
--- NOTE | 2021-01-16 23:09 | P.PN ---
Subjective Progress Note Date: 01/15/21 Principal diagnosis: Bilateral lower extremity cellulitis, with right L once with purulent base Acute on Chronic systolic congestive heart failure, ejection fraction 35-40% per echocardiogram 2018 69-year-old man with past medical history of atrial fibrillation, asthma, coronary artery disease, hyperlipidemia, hypertension, osteoarthritis, subcutaneous B-cell lymphoma, wounds in bilateral ankles, chronic left leg weakness which was evaluated by neurologist on 10/22/2019 and found due to cellulitis and leg swelling. Also patient has a history of lymphoma and he finishes chemotherapy in 2017, he followed up with Dr. Haddad last month for routine visit, with no new recommendation as per patient Patient presents this time because of weakness in both legs for Monday 5 days ago and as per family at bedside is more than 5 days, associated with some exertional dyspnea. He denies chest pain, he has chronic cough with clear phlegm. No abdominal pain or diarrhea or vomiting. No headache or weakness or numbness. Patient also does not have pain in his lower extremity, actually he has loss of sensation from diabetic neuropathy His both legs are swollen, red and warm to touch especially more on the right side also on the right side he has a 2 inches superficial wound with purulent base and surrounding redness suspicious for cellulitis Vitas looks stable, is slightly bradycardic at 47, he saturating 93% 200% on 2 L oxygen via nasal cannula. Labs are unremarkable including CBC, INR. 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 Glucose 174. Liver exams not elevated, bilirubin is 2.0. Coronavirus not detected. ProBNP is 4100 CT of the brain: No acute process. Large soft tissue lipoma Chest x-ray: No acute process. In the emergency room he got 1 dose of Lasix 60 mg 01/14/2021 Patient is currently resting in the bed. Still having shortness of breath at baseline. No complaints of fever or chills. Currently being continued on a ntibiotics in the form of cefazolin. Wound cultures are growing gram-negative bacilli and group D Enterococcus species. ID is on board. Laboratory data showed WBC 5.3 hemoglobin 12.7 and platelets 135 BUN 41 and creatinine 1.35 Patient is being continued on IV Lasix 40 mg twice daily due to acute on chronic CHF with systolic dysfunction and cardiology is following. 2D echocardiogram is ordered. Monitor renal function. Neurology recommends no further intervention at this time. Patient is anticoagulation with edoxaban due to chronic persistent atrial fibrillation. Cardiology is planning for Lexiscan stress test tomorrow. 01/15/2021 Patient is currently lying in the bed comfortably. Shortness of breath is better. No complaints of chest pain. Leg swelling is improving. Patient is b eing continued on IV Lasix 40 mg twice daily. Creatinine level increaseD to 1.51 today. Sodium 136 potassium 3.8 BUN 44 Patient underwent Lexiscan stress test today showed mild stress-induced ischemic changes of the inferior wall. Cardiology is planning for catheterization tomorrow. Denied any fever or chills. No cough or sputum production. Active Medications Generic Name Dose Route Start Last Admin Trade Name Freq PRN Reason Stop Dose Admin Allopurinol 300 mg 01/14/21 09:00 01/14/21 09:59 Allopurinol 300 Mg Tab PO 300 mg DAILY JSABIR Administration Clotrimazole 1 applic 01/13/21 12:25 Clotrimazole 1% Cream 15 Gm Tube TOPICAL BID PRN FUNGAL INFECTION Edoxaban 60 mg 01/13/21 13:15 01/14/21 09:59 Edoxaban Tosylate 60 Mg Tablet PO 60 mg DAILY JASBIR Administration Famotidine 20 mg 01/14/21 21:00 01/14/21 21:01 Famotidine 20 Mg Tab PO 20 mg Q12HR JASBIR Administration Finasteride 5 mg 01/13/21 13:15 01/14/21 09:59 Finasteride 5 Mg Tab PO 5 mg DAILY JASBIR Administration Fluticasone Propionate 1 spray 01/13/21 21:00 01/14/21 21:01 Fluticasone 50mcg/[place] Nasal 16gm EA NOSTRIL 1 spray BID JASBIR Administration Furosemide 40 mg 01/13/21 21:00 01/14/21 21:01 Furosemide 10 Mg/Ml 4 Ml Vial IV 40 mg Q12HR JASBIR Administration Cefazolin Sodium 2 gm/ Sodium 50 mls @ 100 mls/hr 01/13/21 17:00 01/14/21 16:45 Chloride IVPB Not Given Q8HR JASBIR Insulin Aspart 0 unit 01/13/21 21:00 01/14/21 20:58 Insulin Aspart (Novolog) 100 Unit/Ml Vial SQ 1 unit ACHS JASBIR Administration Protocol Lacosamide 200 mg 01/13/21 13:30 01/14/21 21:00 Lacosamide 50 Mg Tablet PO 200 mg BID JASBIR Administration Lisinopril 20 mg 01/13/21 13:15 01/14/21 11:57 Lisinopril 20 Mg Tab PO Not Given DAILY JASBIR Metoprolol Tartrate 25 mg 01/13/21 13:15 01/14/21 21:00 Metoprolol Tartrate 25 Mg Tab PO 25 mg BID JASBIR Administration Naloxone HCl 0.2 mg 01/13/21 12:21 Naloxone 0.4 Mg/Ml 1 Ml Vial IV Q2M PRN Opioid Reversal Oxybutynin Chloride 10 mg 01/13/21 13:15 01/14/21 09:59 Oxybutynin Chloride 5 Mg Tab PO 10 mg DAILY JASBIR Administration Potassium Chloride 10 meq 01/13/21 13:15 01/14/21 09:58 Potassium Chloride Er 10 Meq Tab.Er.Prt PO 10 meq DAILY JASBIR Administration Objective - Vital Signs Vital signs: Vital Signs Temp 97.5 F L 01/15/21 19:52 Pulse 60 01/15/21 19:52 Resp 18 01/15/21 19:52 BP 113/57 01/15/21 19:52 Pulse Ox 99 01/15/21 19:52 Intake & Output 01/15/21 01/15/21 01/16/21 06:59 18:59 06:59 Intake Total 480 Output Total 1380 200 Balance -1380 280 Weight 161.5 kg 161.5 kg Intake: Oral 480 Output: Urine 1380 200 Other: Voiding Method Urinal Urinal # Voids 1 1 - Exam -GENERAL: The patient is alert and oriented x3, not in any acute distress. Obese HEENT: Pupils are round and equally reacting to light. EOMI. No scleral icterus. No conjunctival pallor. Normocephalic, atraumatic. No pharyngeal erythema. No thyromegaly. CARDIOVASCULAR: S1 and S2 present. No murmurs, rubs, or gallops. PULMONARY: Chest is clear to auscultation, no wheezing or crackles. ABDOMEN: Soft, nontender, nondistended, normoactive bowel sounds. No palpable organomegaly. MUSCULOSKELETAL: No joint swelling or deformity. -EXTREMITIES: No cyanosis, clubbing. Right leg warm, swollen with 1 to the right upper lateral leg about 2-3 inches in diameter with purulent base. Left leg is less inflamed NEUROLOGICAL: Gross neurological examination did not reveal any focal deficits. SKIN: No rashes. No petechiae - Labs CBC & Chem 7: 01/16/21 07:06 01/16/21 07:06 Labs: Abnormal Lab Results - Last 24 Hours (Table) 01/15/21 01/15/21 01/15/21 Range/Units 05:55 07:20 07:20 RBC 3.97 L (4.30-5.90) m/uL Hgb 12.5 L (13.0-17.5) gm/dL Plt Count 138 L (150-450) k/uL Sodium 136 L (137-145) mmol/L Chloride 97 L (98-107) mmol/L Carbon Dioxide 31 H (22-30) mmol/L BUN 44 H (9-20) mg/dL Creatinine 1.51 H (0.66-1.25) mg/dL Glucose 152 H (74-99) mg/dL POC Glucose (mg/dL) 154 H (75-99) mg/dL 01/15/21 01/15/21 01/15/21 Range/Units 12:14 16:57 20:14 RBC (4.30-5.90) m/uL Hgb (13.0-17.5) gm/dL Plt Count (150-450) k/uL Sodium (137-145) mmol/L Chloride (98-107) mmol/L Carbon Dioxide (22-30) mmol/L BUN (9-20) mg/dL Creatinine (0.66-1.25) mg/dL Glucose (74-99) mg/dL POC Glucose (mg/dL) 144 H 138 H 160 H (75-99) mg/dL Microbiology - Last 24 Hours (Table) 01/13/21 13:41 Gram Stain - Final Leg - Right Wound Culture - Final Escherichia coli Enterococcus faecalis Assessment and Plan Assessment: Bilateral lower extremity cellulitis, with right L once with purulent base Acute on Chronic systolic congestive heart failure, ejection fraction 35-40% per echocardiogram 2019 Abnormal stress test Bilateral lower extremity weakness and difficulty in ambulation, patient denies back pain or headache. Most likely is due to his cellulitis . no further w/u as per neurology Hypertension Hyperlipidemia Diabetic neuropathy with loss of sensation in the lower extremities Morbid obesity with BMI of 46.4 Chronic atrial fibrillation Chronic kidney disease stage III History of coronary artery disease, status post stent placement B cell lymphoma Bilateral lymphedema and wants in both ankles Chronic left leg weakness Plan: This is a pleasant 70 days old male with bilateral leg cellulitis, more on the right side with history of MRSA. And due to his drug ALLERGY were going to consult infectious disease team for antibiotic. f/u wound culture c/w IV lasix Labs and medication were reviewed.. Continue same treatment. Continue with symptomatic treatment. Resume home medication. Monitor lytes and vitals. DVT and GI prophylaxis. Further recommendations depends on the clinical course of the patient DVT prophylaxis: savaysa GI Prophylaxis: Pepcid PT/OT: Pending Prognosis is guarded Time with Patient: Greater than 30
[2021-01-17 06:03] LABS: Glucose,Whole Blood 121 mg/dL (75-99)
[2021-01-17] MEDS: INSULIN ASPART (NovoLOG) 100 UNIT/ML VIAL SQ SCH ×4 (06:09→20:26)
[2021-01-17 07:34] LABS: Calcium 8.6 mg/dL (8.4-10.2); Potassium 3.8 mmol/L (3.5-5.1)
[2021-01-17] MEDS: allopurinoL 300 MG TAB PO SCH (08:46)
[2021-01-17] MEDS: FAMOTIDINE 20 MG TAB PO SCH ×2 (08:46→20:22)
[2021-01-17] MEDS: FLUTICASONE 50MCG/SPRAY NASAL 16GM EA NOSTRIL SCH ×2 (08:46→20:28)
[2021-01-17] MEDS: FINASTERIDE 5 MG TAB PO SCH (08:46)
[2021-01-17] MEDS: EDOXABAN TOSYLATE 60 MG TABLET PO SCH (08:46)
[2021-01-17] MEDS: LACOSAMIDE 50 MG TABLET PO SCH ×2 (08:47→20:22)
[2021-01-17] MEDS: OXYBUTYNIN CHLORIDE 5 MG TAB PO SCH (08:47)
[2021-01-17] MEDS: METOPROLOL TARTRATE 25 MG TAB PO SCH ×2 (08:47→20:22)
[2021-01-17] MEDS: POTASSIUM CHLORIDE ER 10 MEQ TAB.ER.PRT PO SCH (08:47)
[2021-01-17] MEDS: lisinopriL 10 MG TAB PO SCH (08:47)
[2021-01-17] MEDS: FUROSEMIDE 40 MG TAB PO SCH (08:47)
--- NOTE | 2021-01-17 11:17 | P.PN ---
Subjective Progress Note Date: 01/17/21 This is a pleasant 70 year gentleman with past medical history significant for heart failure, hypertension, hyperlipidemia, chronic atrial fibrillation, COPD, prior TIA, coronary artery disease with prior PCI, patient underwent a cardiac catheterization yesterday by Dr. Cramer, medical therapy was advised. He follows in the office regularly with Dr. Espinoza. Patient was seen and examined this morning, sitting at the bedside, overall feels well. Denies any shortness of breath and denies any chest discomfort. His weight needs to be corrected in the system, he did have good urine output through the night last night. Blood pressure 120/60 with a heart rate in the 60s, 93% on 2 L of oxygen. Sodium 136, potassium 3.8, BUN 34, creatinine 1.3. Objective - Vital Signs Vital signs: Vital Signs Temp 97.2 F L 01/17/21 08:00 Pulse 66 01/17/21 08:00 Resp 16 01/17/21 08:00 BP 120/64 01/17/21 08:00 Pulse Ox 93 L 01/17/21 08:00 Intake & Output 01/16/21 01/17/21 01/17/21 18:59 06:59 18:59 Intake Total 505 50 240 Output Total 650 950 400 Balance -145 -900 -160 Weight 162.84 kg Intake: IV 25 Intake, IV Titration 50 Amount ceFAZolin 2 gm In Sodium 50 Chloride 0.9% 50 ml @ 100 mls/hr IVPB Q8HR [facility] Rx# :[id number] Oral 480 240 Output: Urine 650 950 400 Other: Voiding Method Urinal Urinal Urinal - Exam PHYSICAL EXAMINATION: GENERAL: 70-year-old gentleman in no acute distress at the time of my examination HEENT: Head is atraumatic, normocephalic. Pupils equal, round. Sclera anicteric. Conjunctiva are clear. Mucous membranes of the mouth are moist. Neck is supple. There is no elevated jugular venous pressure. No carotid bruit is heard. HEART EXAMINATION: Heart S1-S2, irreg irreg systolic murmur is heard CHEST EXAMINATION: Lungs are essentially clear with mild diminished air entry to the bases ABDOMEN: Soft, obese, nontender. Bowel sounds are heard. No organomegaly noted. EXTREMITIES: 1+ peripheral pulses with evidence of peripheral edema , chronic lymphedema and discoloration of bilateral lower extremities . Right radial site and dry, good distal pulse. NEUROLOGIC patient is awake, alert and oriented 3 . . - Labs CBC & Chem 7: 01/16/21 07:06 01/17/21 06:59 Labs: Abnormal Lab Results - Last 24 Hours (Table) 01/16/21 01/16/21 01/16/21 Range/Units 11:43 16:32 20:44 Sodium (137-145) mmol/L Chloride (98-107) mmol/L Carbon Dioxide (22-30) mmol/L BUN (9-20) mg/dL Creatinine (0.66-1.25) mg/dL Glucose (74-99) mg/dL POC Glucose (mg/dL) 124 H 134 H 144 H (75-99) mg/dL 01/17/21 01/17/21 Range/Units 06:01 06:59 Sodium 136 L (137-145) mmol/L Chloride 95 L (98-107) mmol/L Carbon Dioxide 35 H (22-30) mmol/L BUN 34 H (9-20) mg/dL Creatinine 1.35 H (0.66-1.25) mg/dL Glucose 132 H (74-99) mg/dL POC Glucose (mg/dL) 121 H (75-99) mg/dL Assessment and Plan Plan: Assessment and plan #1 bilateral lower extremity edema and cellulitis #2 systolic congestive heart failure acute on chronic #3 history of coronary artery disease with prior PCI, positive Kay scan, status post cardiac catheterization from yesterday, medical therapy advised #4 chronic persistent atrial fibrillation, on Savaysa for anticoagulation #5 hypertension #6 hyperlipidemia #7 COPD with home oxygen use #8 history of TIA Plan Continue to monitor the patient for 24 hours plan for possible discharge home in a.m. DNP note has been reviewed, I agree with a documented findings and plan of care. Patient was seen and examined.
[2021-01-17 11:43] LABS: Glucose,Whole Blood 159 mg/dL (75-99)
[2021-01-17 11:58] LABS: Glucose,Whole Blood 158 mg/dL (75-99)
[2021-01-17 16:53] LABS: Glucose,Whole Blood 115 mg/dL (75-99)
[2021-01-17 20:14] LABS: Glucose,Whole Blood 157 mg/dL (75-99)
--- NOTE | 2021-01-17 20:20 | PN ---
PROGRESS NOTE DATE OF SERVICE: 01/17/2021. REASON FOR FOLLOWUP: Bilateral lower extremity cellulitis. INTERVAL HISTORY: Patient is currently afebrile. He is breathing comfortably. Denies having any chest pain or shortness of breath. Occasional cough. No abdominal pain or any worsening pain in the lower extremity. PHYSICAL EXAMINATION: Blood pressure 112/63, pulse of 61, temperature 98. He is 97% on 2 L nasal cannula. GENERAL DESCRIPTION is an elderly male up in the bed in no distress. RESPIRATORY SYSTEM: Unlabored breathing, decreased intensity in breath sounds. HEART S1, S2. Regular rate and rhythm. ABDOMEN: Soft, no tenderness. LEGS are currently wrapped up. No obvious drainage on the dressing. LABS: BUN of 34, creatinine 1.35. DIAGNOSTIC IMPRESSION AND PLAN: Patient with bilateral lower extremity cellulitis, some superficial ulceration from ruptured blister. Cultures with E coli, Enterococcus, possible colonization. Patient clinically responding to the cefazolin, to continue, finish therapy with oral Keflex. Local wound care as ordered. Continue supportive care. MMODL / IJN: [id number] /
--- NOTE | 2021-01-18 00:14 | P.PN ---
Subjective Progress Note Date: 01/16/21 Principal diagnosis: Bilateral lower extremity cellulitis, with right L once with purulent base Acute on Chronic systolic congestive heart failure, ejection fraction 35-40% per echocardiogram 2018 69-year-old man with past medical history of atrial fibrillation, asthma, coronary artery disease, hyperlipidemia, hypertension, osteoarthritis, subcutaneous B-cell lymphoma, wounds in bilateral ankles, chronic left leg weakness which was evaluated by neurologist on 10/22/2019 and found due to cellulitis and leg swelling. Also patient has a history of lymphoma and he finishes chemotherapy in 2017, he followed up with Dr. Haddad last month for routine visit, with no new recommendation as per patient Patient presents this time because of weakness in both legs for Monday 5 days ago and as per family at bedside is more than 5 days, associated with some exertional dyspnea. He denies chest pain, he has chronic cough with clear phlegm. No abdominal pain or diarrhea or vomiting. No headache or weakness or numbness. Patient also does not have pain in his lower extremity, actually he has loss of sensation from diabetic neuropathy His both legs are swollen, red and warm to touch especially more on the right side also on the right side he has a 2 inches superficial wound with purulent base and surrounding redness suspicious for cellulitis Vitas looks stable, is slightly bradycardic at 47, he saturating 93% 200% on 2 L oxygen via nasal cannula. Labs are unremarkable including CBC, INR. Patient states that he takes anticoagulation savaysa 60 mg daily by his senior cognos developer Dr. Espinoza EKG showing atrial fibrillation's at 64 with aberrant conducted complexes, PVC and draped mental branch block, creatinine is at baseline of 1.28, with baseline is 1.1-1.4. Glucose 174. Liver exams not elevated, bilirubin is 2.0. Coronavirus not detected. ProBNP is 4100 CT of the brain: No acute process. Large soft tissue lipoma Chest x-ray: No acute process. In the emergency room he got 1 dose of Lasix 60 mg 01/14/2021 Patient is currently resting in the bed. Still having shortness of breath at baseline. No complaints of fever or chills. Currently being continued on a ntibiotics in the form of cefazolin. Wound cultures are growing gram-negative bacilli and group D Enterococcus species. ID is on board. Laboratory data showed WBC 5.3 hemoglobin 12.7 and platelets 135 BUN 41 and creatinine 1.35 Patient is being continued on IV Lasix 40 mg twice daily due to acute on chronic CHF with systolic dysfunction and cardiology is following. 2D echocardiogram is ordered. Monitor renal function. Neurology recommends no further intervention at this time. Patient is anticoagulation with edoxaban due to chronic persistent atrial fibrillation. Cardiology is planning for Lexiscan stress test tomorrow. 01/15/2021 Patient is currently lying in the bed comfortably. Shortness of breath is better. No complaints of chest pain. Leg swelling is improving. Patient is b eijosé miguel continued on IV Lasix 40 mg twice daily. Creatinine level increaseD to 1.51 today. Sodium 136 potassium 3.8 BUN 44 Patient underwent Lexiscan stress test today showed mild stress-induced ischemic changes of the inferior wall. Cardiology is planning for catheterization tomorrow. Denied any fever or chills. No cough or sputum production. 01/16/2021 Patient underwent cardiac catheterization today showed intermediate to severe disease involving proximal LAD with a calcified tubular lesion appeared to be in the range of 60%. Normal left ventricular end-diastolic pressure. Cardiology recommends medical management at this time. Otherwise patient has been afebrile and no chest pain or shortness of breath is improving. Leg swelling is improving as well. Patient is IV Lasix. Cardiology is on board. Continued on cefazolin for lower extremity cellulitis. Patient has been afebrile. Wound culture showed E. coli and Enterococcus faecalis. Current medications reviewed. Active Medications Generic Name Dose Route Start Last Admin Trade Name Freq PRN Reason Stop Dose Admin Allopurinol 300 mg 01/14/21 09:00 01/14/21 09:59 Allopurinol 300 Mg Tab PO 300 mg DAILY JASBIR Administration Clotrimazole 1 applic 01/13/21 12:25 Clotrimazole 1% Cream 15 Gm Tube TOPICAL BID PRN FUNGAL INFECTION Edoxaban 60 mg 01/13/21 13:15 01/14/21 09:59 Edoxaban Tosylate 60 Mg Tablet PO 60 mg DAILY JASBIR Administration Famotidine 20 mg 01/14/21 21:00 01/14/21 21:01 Famotidine 20 Mg Tab PO 20 mg Q12HR JASBIR Administration Finasteride 5 mg 01/13/21 13:15 01/14/21 09:59 Finasteride 5 Mg Tab PO 5 mg DAILY JASBIR Administration Fluticasone Propionate 1 spray 01/13/21 21:00 01/14/21 21:01 Fluticasone 50mcg/[place] Nasal 16gm EA NOSTRIL 1 spray BID JASBIR Administration Furosemide 40 mg 01/13/21 21:00 01/14/21 21:01 Furosemide 10 Mg/Ml 4 Ml Vial IV 40 mg Q12HR JASBIR Administration Cefazolin Sodium 2 gm/ Sodium 50 mls @ 100 mls/hr 01/13/21 17:00 01/14/21 16:45 Chloride IVPB Not Given Q8HR [facility] Insulin Aspart 0 unit 01/13/21 21:00 01/14/21 20:58 Insulin Aspart (Novolog) 100 Unit/Ml Vial SQ 1 unit ACHS JASBIR Administration Protocol Lacosamide 200 mg 01/13/21 13:30 01/14/21 21:00 Lacosamide 50 Mg Tablet PO 200 mg BID JASBIR Administration Lisinopril 20 mg 01/13/21 13:15 01/14/21 11:57 Lisinopril 20 Mg Tab PO Not Given DAILY [facility] Metoprolol Tartrate 25 mg 01/13/21 13:15 01/14/21 21:00 Metoprolol Tartrate 25 Mg Tab PO 25 mg BID JASBIR Administration Naloxone HCl 0.2 mg 01/13/21 12:21 Naloxone 0.4 Mg/Ml 1 Ml Vial IV Q2M PRN Opioid Reversal Oxybutynin Chloride 10 mg 01/13/21 13:15 01/14/21 09:59 Oxybutynin Chloride 5 Mg Tab PO 10 mg DAILY JASBIR Administration Potassium Chloride 10 meq 01/13/21 13:15 01/14/21 09:58 Potassium Chloride Er 10 Meq Tab.Er.Prt PO 10 meq DAILY JASBIR Administration Objective - Vital Signs Vital signs: Vital Signs Temp 97.5 F L 01/16/21 20:00 Pulse 57 L 01/16/21 20:00 Resp 18 01/16/21 20:15 BP 126/67 01/16/21 20:00 Pulse Ox 100 01/16/21 20:00 Intake & Output 01/16/21 01/16/21 01/17/21 06:59 18:59 06:59 Intake Total 505 Output Total 1750 650 Balance -1750 -145 Weight 103 kg Intake: IV 25 Oral 480 Output: Urine 1750 650 Other: Voiding Method Urinal Urinal Urinal # Voids 1 - Exam -GENERAL: The patient is alert and oriented x3, not in any acute distress. Obese HEENT: Pupils are round and equally reacting to light. EOMI. No scleral icterus. No conjunctival pallor. Normocephalic, atraumatic. No pharyngeal erythema. No thyromegaly. CARDIOVASCULAR: S1 and S2 present. No murmurs, rubs, or gallops. PULMONARY: Chest is clear to auscultation, no wheezing or crackles. ABDOMEN: Soft, nontender, nondistended, normoactive bowel sounds. No palpable organomegaly. MUSCULOSKELETAL: No joint swelling or deformity. -EXTREMITIES: No cyanosis, clubbing. Right leg warm, swollen with 1 to the right upper lateral leg about 2-3 inches in diameter with purulent base. Left leg is less inflamed NEUROLOGICAL: Gross neurological examination did not reveal any focal deficits. SKIN: No rashes. No petechiae - Labs CBC & Chem 7: 01/16/21 07:06 01/17/21 06:59 Labs: Abnormal Lab Results - Last 24 Hours (Table) 01/16/21 01/16/21 01/16/21 Range/Units 06:15 07:06 07:06 RBC 4.11 L (4.30-5.90) m/uL Plt Count 145 L (150-450) k/uL Chloride 95 L (98-107) mmol/L Carbon Dioxide 35 H (22-30) mmol/L BUN 38 H (9-20) mg/dL Creatinine 1.37 H (0.66-1.25) mg/dL Glucose 150 H (74-99) mg/dL POC Glucose (mg/dL) 132 H (75-99) mg/dL 01/16/21 01/16/21 01/16/21 Range/Units 11:43 16:32 20:44 RBC (4.30-5.90) m/uL Plt Count (150-450) k/uL Chloride (98-107) mmol/L Carbon Dioxide (22-30) mmol/L BUN (9-20) mg/dL Creatinine (0.66-1.25) mg/dL Glucose (74-99) mg/dL POC Glucose (mg/dL) 124 H 134 H 144 H (75-99) mg/dL Assessment and Plan Assessment: Bilateral lower extremity cellulitis, with right L once with purulent base Acute on Chronic systolic congestive heart failure, ejection fraction 35-40% per echocardiogram 2019 Abnormal stress test. s/p cath. medical management was recommended, Bilateral lower extremity weakness and difficulty in ambulation, patient denies back pain or headache. Most likely is due to his cellulitis . no further w/u as per neurology Hypertension Hyperlipidemia Diabetic neuropathy with loss of sensation in the lower extremities Morbid obesity with BMI of 46.4 Chronic atrial fibrillation Chronic kidney disease stage III History of coronary artery disease, status post stent placement B cell lymphoma Bilateral lymphedema and wants in both ankles Chronic left leg weakness Plan: This is a pleasant 70 days old male with bilateral leg cellulitis, more on the right side with history of MRSA. And due to his drug ALLERGY were going to consult infectious disease team for antibiotic. f/u wound culture. c/w cefazolin c/w IV lasix--PO Labs and medication were reviewed.. Continue with symptomatic treatment. Resume home medication. Monitor lytes and vitals. DVT and GI prophylaxis. Further recommendations depends on the clinical course of the patient DVT prophylaxis: savaysa GI Prophylaxis: Pepcid PT/OT: Pending Prognosis is guarded Time with Patient: Greater than 30
--- NOTE | 2021-01-18 00:15 | P.PN ---
Subjective Progress Note Date: 01/17/21 Principal diagnosis: Bilateral lower extremity cellulitis, with right L once with purulent base Acute on Chronic systolic congestive heart failure, ejection fraction 35-40% per echocardiogram 2018 69-year-old man with past medical history of atrial fibrillation, asthma, coronary artery disease, hyperlipidemia, hypertension, osteoarthritis, subcutaneous B-cell lymphoma, wounds in bilateral ankles, chronic left leg weakness which was evaluated by neurologist on 10/22/2019 and found due to cellulitis and leg swelling. Also patient has a history of lymphoma and he finishes chemotherapy in 2017, he followed up with Dr. Hadadd last month for routine visit, with no new recommendation as per patient Patient presents this time because of weakness in both legs for Monday 5 days ago and as per family at bedside is more than 5 days, associated with some exertional dyspnea. He denies chest pain, he has chronic cough with clear phlegm. No abdominal pain or diarrhea or vomiting. No headache or weakness or numbness. Patient also does not have pain in his lower extremity, actually he has loss of sensation from diabetic neuropathy His both legs are swollen, red and warm to touch especially more on the right side also on the right side he has a 2 inches superficial wound with purulent base and surrounding redness suspicious for cellulitis Vitas looks stable, is slightly bradycardic at 47, he saturating 93% 200% on 2 L oxygen via nasal cannula. Labs are unremarkable including CBC, INR. Patient states that he takes anticoagulation savaysa 60 mg daily by his client services assistant Dr. Espinoza EKG showing atrial fibrillation's at 64 with aberrant conducted complexes, PVC and draped mental branch block, creatinine is at baseline of 1.28, with baseline is 1.1-1.4. Glucose 174. Liver exams not elevated, bilirubin is 2.0. Coronavirus not detected. ProBNP is 4100 CT of the brain: No acute process. Large soft tissue lipoma Chest x-ray: No acute process. In the emergency room he got 1 dose of Lasix 60 mg 01/14/2021 Patient is currently resting in the bed. Still having shortness of breath at baseline. No complaints of fever or chills. Currently being continued on a ntibiotics in the form of cefazolin. Wound cultures are growing gram-negative bacilli and group D Enterococcus species. ID is on board. Laboratory data showed WBC 5.3 hemoglobin 12.7 and platelets 135 BUN 41 and creatinine 1.35 Patient is being continued on IV Lasix 40 mg twice daily due to acute on chronic CHF with systolic dysfunction and cardiology is following. 2D echocardiogram is ordered. Monitor renal function. Neurology recommends no further intervention at this time. Patient is anticoagulation with edoxaban due to chronic persistent atrial fibrillation. Cardiology is planning for Lexiscan stress test tomorrow. 01/15/2021 Patient is currently lying in the bed comfortably. Shortness of breath is better. No complaints of chest pain. Leg swelling is improving. Patient is b eing continued on IV Lasix 40 mg twice daily. Creatinine level increaseD to 1.51 today. Sodium 136 potassium 3.8 BUN 44 Patient underwent Lexiscan stress test today showed mild stress-induced ischemic changes of the inferior wall. Cardiology is planning for catheterization tomorrow. Denied any fever or chills. No cough or sputum production. 01/16/2021 Patient underwent cardiac catheterization today showed intermediate to severe disease involving proximal LAD with a calcified tubular lesion appeared to be in the range of 60%. Normal left ventricular end-diastolic pressure. Cardiology recommends medical management at this time. Otherwise patient has been afebrile and no chest pain or shortness of breath is improving. Leg swelling is improving as well. Patient is IV Lasix. Cardiology is on board. Continued on cefazolin for lower extremity cellulitis. Patient has been afebrile. Wound culture showed E. coli and Enterococcus faecalis. 01/17/2021 Patient is currently able to walk to the bathroom with support. Bilateral lower extremity swelling is improving. Lasix changed to by mouth. Renal function is stable with creatinine level around 1.3. Cardiology and ID is on board. Anticipate discharge in the next 24 hours with more clinical improvement. No chest pain. Shortness of breath is improving. No headache or dizziness or lightheadedness. Patient does not want to go to rehab. Current medications reviewed. Active Medications Generic Name Dose Route Start Last Admin Trade Name Freq PRN Reason Stop Dose Admin Allopurinol 300 mg 01/14/21 09:00 01/14/21 09:59 Allopurinol 300 Mg Tab PO 300 mg DAILY JASBIR Administration Clotrimazole 1 applic 01/13/21 12:25 Clotrimazole 1% Cream 15 Gm Tube TOPICAL BID PRN FUNGAL INFECTION Edoxaban 60 mg 01/13/21 13:15 01/14/21 09:59 Edoxaban Tosylate 60 Mg Tablet PO 60 mg DAILY JASBIR Administration Famotidine 20 mg 01/14/21 21:00 01/14/21 21:01 Famotidine 20 Mg Tab PO 20 mg Q12HR JASBIR Administration Finasteride 5 mg 01/13/21 13:15 01/14/21 09:59 Finasteride 5 Mg Tab PO 5 mg DAILY JASBIR Administration Fluticasone Propionate 1 spray 01/13/21 21:00 01/14/21 21:01 Fluticasone 50mcg/[place] Nasal 16gm EA NOSTRIL 1 spray BID AJSBIR Administration Furosemide 40 mg 01/13/21 21:00 01/14/21 21:01 Furosemide 10 Mg/Ml 4 Ml Vial IV 40 mg Q12HR JASBIR Administration Cefazolin Sodium 2 gm/ Sodium 50 mls @ 100 mls/hr 01/13/21 17:00 01/14/21 16:45 Chloride IVPB Not Given Q8HR [facility] Insulin Aspart 0 unit 01/13/21 21:00 01/14/21 20:58 Insulin Aspart (Novolog) 100 Unit/Ml Vial SQ 1 unit ACHS [facility] Administration Protocol Lacosamide 200 mg 01/13/21 13:30 01/14/21 21:00 Lacosamide 50 Mg Tablet PO 200 mg BID [facility] Administration Lisinopril 20 mg 01/13/21 13:15 01/14/21 11:57 Lisinopril 20 Mg Tab PO Not Given DAILY [facility] Metoprolol Tartrate 25 mg 01/13/21 13:15 01/14/21 21:00 Metoprolol Tartrate 25 Mg Tab PO 25 mg BID [facility] Administration Naloxone HCl 0.2 mg 01/13/21 12:21 Naloxone 0.4 Mg/Ml 1 Ml Vial IV Q2M PRN Opioid Reversal Oxybutynin Chloride 10 mg 01/13/21 13:15 01/14/21 09:59 Oxybutynin Chloride 5 Mg Tab PO 10 mg DAILY [facility] Administration Potassium Chloride 10 meq 01/13/21 13:15 01/14/21 09:58 Potassium Chloride Er 10 Meq Tab.Er.Prt PO 10 meq DAILY JASBIR Administration Objective - Vital Signs Vital signs: Vital Signs Temp 97.7 F 01/17/21 11:55 Pulse 59 L 01/17/21 11:55 Resp 18 01/17/21 11:55 BP 105/59 01/17/21 11:55 Pulse Ox 96 01/17/21 11:55 Intake & Output 01/16/21 01/17/21 01/17/21 18:59 06:59 18:59 Intake Total 505 50 480 Output Total 650 950 600 Balance -145 -900 -120 Weight 162.84 kg Intake: IV 25 Intake, IV Titration 50 Amount ceFAZolin 2 gm In Sodium 50 Chloride 0.9% 50 ml @ 100 mls/hr IVPB Q8HR [facility] Rx# :[id number] Oral 480 480 Output: Urine 650 950 600 Other: Voiding Method Urinal Urinal Urinal # Bowel Movements 1 - Exam -GENERAL: The patient is alert and oriented x3, not in any acute distress. Obese HEENT: Pupils are round and equally reacting to light. EOMI. No scleral icterus. No conjunctival pallor. Normocephalic, atraumatic. No pharyngeal erythema. No thyromegaly. CARDIOVASCULAR: S1 and S2 present. No murmurs, rubs, or gallops. PULMONARY: Chest is clear to auscultation, no wheezing or crackles. ABDOMEN: Soft, nontender, nondistended, normoactive bowel sounds. No palpable organomegaly. MUSCULOSKELETAL: No joint swelling or deformity. -EXTREMITIES: No cyanosis, clubbing. Right leg warm, swollen with 1 to the right upper lateral leg about 2-3 inches in diameter with purulent base. Left leg is less inflamed NEUROLOGICAL: Gross neurological examination did not reveal any focal deficits. SKIN: No rashes. No petechiae - Labs CBC & Chem 7: 01/16/21 07:06 01/17/21 06:59 Labs: Abnormal Lab Results - Last 24 Hours (Table) 01/16/21 01/16/21 01/17/21 Range/Units 16:32 20:44 06:01 Sodium (137-145) mmol/L Chloride (98-107) mmol/L Carbon Dioxide (22-30) mmol/L BUN (9-20) mg/dL Creatinine (0.66-1.25) mg/dL Glucose (74-99) mg/dL POC Glucose (mg/dL) 134 H 144 H 121 H (75-99) mg/dL 01/17/21 01/17/2121 Range/Units 06:59 11:41 11:57 Sodium 136 L (137-145) mmol/L Chloride 95 L (98-107) mmol/L Carbon Dioxide 35 H (22-30) mmol/L BUN 34 H (9-20) mg/dL Creatinine 1.35 H (0.66-1.25) mg/dL Glucose 132 H (74-99) mg/dL POC Glucose (mg/dL) 159 H 158 H (75-99) mg/dL Assessment and Plan Assessment: Bilateral lower extremity cellulitis, with right L once with purulent base. improving Acute on Chronic systolic congestive heart failure, ejection fraction 35-40% per echocardiogram 2019 Abnormal stress test. s/p cath. medical management was recommended, Bilateral lower extremity weakness and difficulty in ambulation, patient denies back pain or headache. Most likely is due to his cellulitis . no further w/u as per neurology Hypertension Hyperlipidemia Diabetic neuropathy with loss of sensation in the lower extremities Morbid obesity with BMI of 46.4 Chronic atrial fibrillation Chronic kidney disease stage III History of coronary artery disease, status post stent placement B cell lymphoma Bilateral lymphedema and wants in both ankles Chronic left leg weakness Plan: This is a pleasant 70 days old male with bilateral leg cellulitis, more on the right side with history of MRSA. And due to his drug ALLERGY were going to [facility] infectious disease team for antibiotic. f/u wound culture. c/w cefazolin c/w IV lasix--PO Labs and medication were reviewed.. Continue with symptomatic treatment. Resume home medication. Monitor lytes and vitals. DVT and GI prophylaxis. Further recommendations depends on the clinical course of the patient DVT prophylaxis: savaysa GI Prophylaxis: Pepcid PT/OT: Pending Prognosis is guarded Time with Patient: Greater than 30
[2021-01-18 06:06] LABS: Glucose,Whole Blood 123 mg/dL (75-99)
[2021-01-18] MEDS: INSULIN ASPART (NovoLOG) 100 UNIT/ML VIAL SQ SCH ×4 (06:44→20:56)
[2021-01-18 08:00] LABS: Basophils % (A) 0 %; Eosinophils # (A) 0.3 k/uL (0-0.7); Eosinophils % (A) 6 %; HCT 38.9 % (39.0-53.0); HGB 12.7 gm/dL (13.0-17.5); Lymphocytes # (A) 1.3 k/uL (1.0-4.8); Lymphocytes % (A) 26 %; MCH 32.2 pg (25.0-35.0); MCHC 32.7 g/dL (31.0-37.0); MCV 98.4 fL (80.0-100.0); Macrocytosis Slight; Mean Platelet Volume 9.1; Monocytes # (A) 0.4 k/uL (0-1.0); Monocytes % (A) 9 %; Neutrophils # (A) 2.8 k/uL (1.3-7.7); Neutrophils % (A) 57 %; Platelet Count 132 k/uL (150-450); RBC 3.95 m/uL (4.30-5.90); RDW 15.3 % (11.5-15.5); WBC 4.9 k/uL (3.8-10.6)
[2021-01-18] MEDS: OXYBUTYNIN CHLORIDE 5 MG TAB PO SCH (08:01)
[2021-01-18] MEDS: LACOSAMIDE 50 MG TABLET PO SCH ×2 (08:01→21:00)
[2021-01-18] MEDS: lisinopriL 10 MG TAB PO SCH (08:01)
[2021-01-18] MEDS: METOPROLOL TARTRATE 25 MG TAB PO SCH ×2 (08:01→21:01)
[2021-01-18] MEDS: EDOXABAN TOSYLATE 60 MG TABLET PO SCH (08:01)
[2021-01-18] MEDS: FUROSEMIDE 40 MG TAB PO SCH (08:02)
[2021-01-18] MEDS: FINASTERIDE 5 MG TAB PO SCH (08:02)
[2021-01-18] MEDS: POTASSIUM CHLORIDE ER 10 MEQ TAB.ER.PRT PO SCH (08:02)
[2021-01-18] MEDS: allopurinoL 300 MG TAB PO SCH (08:02)
[2021-01-18] MEDS: FAMOTIDINE 20 MG TAB PO SCH ×2 (08:02→21:00)
[2021-01-18] MEDS: FLUTICASONE 50MCG/SPRAY NASAL 16GM EA NOSTRIL SCH ×2 (08:04→21:01)
[2021-01-18 08:06] LABS: Calcium 8.9 mg/dL (8.4-10.2); Potassium 3.9 mmol/L (3.5-5.1)
--- NOTE | 2021-01-18 11:14 | P.PN ---
Subjective This is a pleasant 70-year-old male past medical history significant for chronic systolic heart failure, ischemic cardiomyopathy, hypertension, dyslipidemia, chronic persistent atrial fibrillation, COPD and coronary artery disease s/p PCI OM 2013. He is status post cardiac catheterization revealing a 60% lesion in the proximal LAD. Medical therapy was recommended. He is seen and examined sitting up on the edge of the bed in no acute distress. He states last night while he was sitting up he had a sharp pain in the left precordial region that was very brief in nature and lasted only a few seconds. There was no radiation to the back, arm, neck or jaw. He had no associated shortness of breath, dizziness or palpitations. Telemetry tracings reveal persistent atrial fibrillation with variable ventricular rates. Blood pressure 105/56 heart rate 52 afebrile maintaining oxygen saturation on nasal cannula. Laboratory data reviewed, WBC 4.9, hemoglobin 12.7, platelets 132, sodium 137, potassium 3.9, creatinine 1.21. Currently maintained on Savaysa a 60 mg daily, Lasix 40 mg by mouth daily, lisinopril 10 mg daily and Lopressor 25 mg twice a day. GENERAL: Well-appearing, well-nourished and in no acute distress. NECK: Supple without JVD or thyromegaly. LUNGS: Breath sounds clear to auscultation bilaterally. Respiration equal and unlabored. No wheezes, rales or rhonchi. HEART: Irregular rate and rhythm without murmurs, rubs or gallops. S1 and S2 heard. EXTREMITIES: Normal range of motion, bilateral lower extremity edema with ZA wraps in place. No clubbing or cyanosis. Peripheral pulses intact. Right radial access site soft and intact with no ecchymosis, swelling or oozing. ASSESSMENT Coronary artery disease Acute on chronic systolic heart failure, improved Chronic persistent atrial fibrillation maintained on oral anticoagulation Bilateral lower extremity cellulitis Hypertension Dyslipidemia COPD Morbid obesity, BMI 46 PLAN Initiate atorvastatin 40 mg daily. Continue other cardiac medications. Stable for discharge from a cardiac perspective. Follow-up in the office with Dr. Espinoza in one week. Nurse Practitioner note has been reviewed, I agree with a documented findings and plan of care. Patient was seen and examined. Objective - Vital Signs Vital signs: Vital Signs Temp 98.2 F 01/18/21 07:59 Pulse 52 L 01/18/21 08:00 Resp 18 01/18/21 08:00 BP 105/56 01/18/21 07:59 Pulse Ox 96 01/18/21 07:59 Intake & Output 01/17/21 01/18/21 01/18/21 18:59 06:59 18:59 Intake Total 720 Output Total 750 800 Balance -30 -800 Weight 162.84 kg 158.7 kg Intake: Oral 720 Output: Urine 750 800 Other: Voiding Method Urinal Urinal # Bowel Movements 1 1 - Labs CBC & Chem 7: 01/18/21 07:28 01/18/21 07:28 Labs: Abnormal Lab Results - Last 24 Hours (Table) 01/17/21 01/17/21 01/17/21 Range/Units 11:41 11:57 16:51 RBC (4.30-5.90) m/uL Hgb (13.0-17.5) gm/dL Hct (39.0-53.0) % Plt Count (150-450) k/uL Chloride (98-107) mmol/L Carbon Dioxide (22-30) mmol/L BUN (9-20) mg/dL Glucose (74-99) mg/dL POC Glucose (mg/dL) 159 H 158 H 115 H (75-99) mg/dL 01/17/21 01/18/21 01/18/21 Range/Units 20:13 06:05 07:28 RBC 3.95 L (4.30-5.90) m/uL Hgb 12.7 L (13.0-17.5) gm/dL Hct 38.9 L (39.0-53.0) % Plt Count 132 L (150-450) k/uL Chloride (98-107) mmol/L Carbon Dioxide (22-30) mmol/L BUN (9-20) mg/dL Glucose (74-99) mg/dL POC Glucose (mg/dL) 157 H 123 H (75-99) mg/dL 01/18/21 Range/Units 07:28 RBC (4.30-5.90) m/uL Hgb (13.0-17.5) gm/dL Hct (39.0-53.0) % Plt Count (150-450) k/uL Chloride 97 L (98-107) mmol/L Carbon Dioxide 35 H (22-30) mmol/L BUN 33 H (9-20) mg/dL Glucose 133 H (74-99) mg/dL POC Glucose (mg/dL) (75-99) mg/dL
[2021-01-18] MEDS: ATORVASTATIN 40 MG TAB PO SCH (11:28)
[2021-01-18 12:07] LABS: Glucose,Whole Blood 154 mg/dL (75-99)
--- NOTE | 2021-01-18 13:40 | ECHOS ---
STRESS ECHOCARDIOGRAM LUMASON: N/A Vial INDICATIONS: Shortness of breath. MEDICATIONS: BASELINE HEART RATE: 58 BASELINE BLOOD PRESSURE: 117/63 MAXIMUM HEART RATE: 58 MAXIMUM BLOOD PRESSURE: 118/50 85% MPHR: 127 100% MPHR: 149 METS: N/A MAXIMUM STAGE REACHED: N/A TOTAL EXERCISE TIME: RESULTS: Baseline EKG shows atrial fibrillation, left axis deviation with right bundle branch block. He patient was given intravenous Lexiscan as per protocol. Did not have chest pain or diagnostic ST-segment depression. CONCLUSIONS: 1. Negative stress test by EKG criteria. 2. Cardiolite portion of the stress test will be reported separately. MMODL / IJN: [id number] /
--- NOTE | 2021-01-18 14:30 | PN ---
PROGRESS NOTE DATE OF SERVICE: 01/18/2021 REASON FOR FOLLOWUP: Bilateral lower extremity cellulitis. INTERVAL HISTORY: The patient is currently afebrile. Patient is breathing comfortably. The patient denies having any chest pain. No shortness of breath or cough. No abdominal pain. No pain in the lower extremity. PHYSICAL EXAMINATION: Blood pressure 92/69, pulse of 44, temperature 98.1. He is 97% on 2 L nasal cannula. General description is an elderly male up in the bed in no distress. Respiratory system: Unlabored breathing, decreased breath sounds in the bases. No wheeze. HEART: S1, S2. Regular rate and rhythm. ABDOMEN: Soft. No tenderness. LABS: Hemoglobin is 12.2, white count 4.9, BUN of 33, creatinine 1.21. DIAGNOSTIC IMPRESSION AND PLAN: Patient with bilateral lower extremity cellulitis with some superficial ulceration from ruptured blister. Clinically responding to cefazolin. Finish therapy with oral Keflex, local wound care with Aquacel silver dressing and Ishan wrap. Continue supportive care. MMODL / IJN: [id number] /
--- NOTE | 2021-01-18 14:36 | P.DS ---
Providers Date of admission: 01/13/21 12:21 Attending physician: Enzo Ellsworth MD Consults: 01/13/21 12:22 Consult Physician Urgent Consulting Provider: [facility] Consult Reason/Comments: acute exertional dyspnea, AECHF, b/l le edema Do you want consulting provider notified?: Yes 01/13/21 12:47 Consult Physician Urgent Consulting Provider: Eliu Contreras Consult Reason/Comments: acute left lower extremity weakness, hx tia Do you want consulting provider notified?: Yes 01/13/21 13:23 Consult Physician Urgent Consulting Provider: Kaylynn Spears Consult Reason/Comments: right leg cellutlitis and wound Do you want consulting provider notified?: Yes Primary care physician: Migue Hicks Hospital Course: Diagnoses: Bilateral lower extremity cellulitis, with right L once with purulent base Bilateral lower extremity weakness and difficulty in ambulation, due to his cellulitis Hypertension Hyperlipidemia Diabetic neuropathy with loss of sensation in the lower extremities Morbid obesity with BMI of 46.4 Chronic atrial fibrillation Chronic kidney disease stage III History of coronary artery disease, status post stent placement Chronic systolic congestive heart failure, ejection fraction 35-40% per echocardiogram 2019 B cell lymphoma Bilateral lymphedema and wants in both ankles Chronic left leg weakness hospital course: Hospital course: 69-year-old man with past medical history of atrial fibrillation, asthma, coronary artery disease, hyperlipidemia, hypertension, osteoarthritis, subcutaneous B-cell lymphoma, wounds in bilateral ankles, chronic left leg weakness which was evaluated by neurologist on 10/22/2019 and found due to cellulitis and leg swelling. Also patient has a history of lymphoma and he finishes chemotherapy in 2017, he followed up with Dr. Haddad last month for routine visit, with no new recommendation as per patient Patient presents this time because of weakness in both legs for 5 days associated with some exertional dyspnea. patient was found to have bilateral lower extremity cellulitis and was treated with cefazolin with clinical improvement and he was cleared for discharge by ID team on oral Keflex Also he was evaluated by canine service teacher.coronary artery disease s/p PCI OM 2013. He is status post cardiac catheterization revealing a 60% lesion in the proximal LAD. Medical therapy was recommended. I Discussed the case with canine service teacher team, his stable from their perspective for patient to be discharged today and follow-up with Dr. Espinoza in the office in one week Problems and management plan were discussed with the patient and he verbalized understanding and acceptance Patient was found stable and can be discharged home however he needs follow-up as an outpatient. Patient was instructed to follow up with PCP Dr. Hicks within one week and patient agrees. Also patient was instructed to follow up with Dr. Espinoza in one week My physical exam Gen: patient is a AAOx3, no distress CVS: S1-S2, RRR, no murmur Lungs: B/L CTA, no wheezing Abdomen: soft, no distention, no tenderness, positive bowel sounds Extremity: no leg edema or induration. Improving bilateral leg swelling and cellulitis Time spent more than 35 minutes Patient Condition at Discharge: Serious Plan - Discharge Summary Discharge Rx Participant: No New Discharge Prescriptions: New Atorvastatin [Lipitor] 40 mg PO DAILY #90 tab Petrolatum, White [Aquaphor] 1 applic TOPICAL DAILY PRN applic PRN Reason: Dry Skin Cephalexin [Keflex] 500 mg PO Q12HR 7 Days #14 cap Furosemide [Lasix] 40 mg PO DAILY tab INSULIN ASPART (NovoLOG) [NovoLOG (formulary)] 0 unit SQ ACHS vial Famotidine [Pepcid] 20 mg PO Q12HR tab Continue Finasteride 5 mg PO DAILY Edoxaban Tosylate [Savaysa] 60 mg PO DAILY lisinopriL [Zestril] 20 mg PO DAILY #1 tab Metoprolol Tartrate [Lopressor] 25 mg PO BID Oxybutynin Chloride 10 mg PO DAILY Fluticasone Nasal [place] [Flonase Nasal [place]] 1 spray EA NOSTRIL BID Nitroglycerin Sl Tabs [Nitrostat] 0.4 mg SL Q5M PRN PRN Reason: Chest Pain Clotrimazole Cream [Lotrimin Cream] 1 applic TOPICAL BID PRN PRN Reason: FUNGAL INFECTION Lacosamide [Vimpat] 200 mg PO BID Allopurinol [Zyloprim] 300 mg PO DAILY Discontinued Potassium Chloride [Klor-Con 10] 10 meq PO DAILY Furosemide [Lasix] 40 mg PO BID Discharge Medication List Finasteride 5 mg PO DAILY 04/18/14 [History] Edoxaban Tosylate [Savaysa] 60 mg PO DAILY 12/29/16 [History] lisinopriL [Zestril] 20 mg PO DAILY #1 tab 02/08/17 [Rx] Metoprolol Tartrate [Lopressor] 25 mg PO BID 02/05/19 [History] Fluticasone Nasal [place] [Flonase Nasal [place]] 1 spray EA NOSTRIL BID 10/18/19 [History] Oxybutynin Chloride 10 mg PO DAILY 10/18/19 [History] Allopurinol [Zyloprim] 300 mg PO DAILY 01/13/21 [History] Clotrimazole Cream [Lotrimin Cream] 1 applic TOPICAL BID PRN 01/13/21 [History] Lacosamide [Vimpat] 200 mg PO BID 01/13/21 [History] Nitroglycerin Sl Tabs [Nitrostat] 0.4 mg SL Q5M PRN 01/13/21 [History] Atorvastatin [Lipitor] 40 mg PO DAILY #90 tab 01/18/21 [Rx] Cephalexin [Keflex] 500 mg PO Q12HR 7 Days #14 cap 01/18/21 [Rx] Famotidine [Pepcid] 20 mg PO Q12HR tab 01/18/21 [Rx] Furosemide [Lasix] 40 mg PO DAILY tab 01/18/21 [Rx] INSULIN ASPART (NovoLOG) [NovoLOG (formulary)] 0 unit SQ ACHS vial 01/18/21 [Rx] Petrolatum, White [Aquaphor] 1 applic TOPICAL DAILY PRN applic 01/18/21 [Rx] Follow up Appointment(s)/Referral(s): [facility], [NON-STAFF] - Migue Hicks III, MD [Primary Care Provider] - 1-2 days Jacqueline Espinoza MD [STAFF PHYSICIAN] - 1 Week Activity/Diet/Wound Care/Special Instructions: Patient requires hospital bed to keep head of bed >30 degrees to alleviate orthopnea from CHF
[2021-01-18 17:01] LABS: Glucose,Whole Blood 177 mg/dL (75-99)
[2021-01-18 20:19] LABS: Glucose,Whole Blood 126 mg/dL (75-99)
[2021-01-19 06:25] LABS: Glucose,Whole Blood 129 mg/dL (75-99)
[2021-01-19] MEDS: INSULIN ASPART (NovoLOG) 100 UNIT/ML VIAL SQ SCH ×2 (06:27→12:11)
[2021-01-19 08:10] LABS: Calcium 9.3 mg/dL (8.4-10.2); Potassium 4.3 mmol/L (3.5-5.1)
[2021-01-19] MEDS: FAMOTIDINE 20 MG TAB PO SCH (08:56)
[2021-01-19] MEDS: FUROSEMIDE 40 MG TAB PO SCH (08:56)
[2021-01-19] MEDS: lisinopriL 10 MG TAB PO SCH (08:56)
[2021-01-19] MEDS: FINASTERIDE 5 MG TAB PO SCH (08:57)
[2021-01-19] MEDS: allopurinoL 300 MG TAB PO SCH (08:57)
[2021-01-19] MEDS: OXYBUTYNIN CHLORIDE 5 MG TAB PO SCH (08:57)
[2021-01-19] MEDS: FLUTICASONE 50MCG/SPRAY NASAL 16GM EA NOSTRIL SCH (08:57)
[2021-01-19] MEDS: METOPROLOL TARTRATE 25 MG TAB PO SCH (08:57)
[2021-01-19] MEDS: ATORVASTATIN 40 MG TAB PO SCH (08:57)
[2021-01-19] MEDS: POTASSIUM CHLORIDE ER 10 MEQ TAB.ER.PRT PO SCH (08:57)
[2021-01-19] MEDS: LACOSAMIDE 50 MG TABLET PO SCH (08:57)
[2021-01-19] MEDS: EDOXABAN TOSYLATE 60 MG TABLET PO SCH (08:57)
--- NOTE | 2021-01-19 09:33 | P.DS ---
Providers Date of admission: 01/13/21 12:21 Attending physician: Enzo Ellsworth MD Consults: 01/13/21 12:22 Consult Physician Urgent Consulting Provider: [facility] Consult Reason/Comments: acute exertional dyspnea, AECHF, b/l le edema Do you want consulting provider notified?: Yes 01/13/21 12:47 Consult Physician Urgent Consulting Provider: Eliu Contreras Consult Reason/Comments: acute left lower extremity weakness, hx tia Do you want consulting provider notified?: Yes 01/13/21 13:23 Consult Physician Urgent Consulting Provider: Kaylynn Spears Consult Reason/Comments: right leg cellutlitis and wound Do you want consulting provider notified?: Yes Primary care physician: Migue Hicks Hospital Course: Diagnoses: Bilateral lower extremity cellulitis, with right L once with purulent base Bilateral lower extremity weakness and difficulty in ambulation, due to his cellulitis Hypertension Hyperlipidemia Diabetic neuropathy with loss of sensation in the lower extremities Morbid obesity with BMI of 46.4 Chronic atrial fibrillation Chronic kidney disease stage III History of coronary artery disease, status post stent placement Chronic systolic congestive heart failure, ejection fraction 35-40% per echocardiogram 2019 B cell lymphoma Bilateral lymphedema and wants in both ankles Chronic left leg weakness hospital course: Hospital course: 69-year-old man with past medical history of atrial fibrillation, asthma, coronary artery disease, hyperlipidemia, hypertension, osteoarthritis, subcutaneous B-cell lymphoma, wounds in bilateral ankles, chronic left leg weakness which was evaluated by neurologist on 10/22/2019 and found due to cellulitis and leg swelling. Also patient has a history of lymphoma and he finishes chemotherapy in 2017, he followed up with Dr. Haddad last month for routine visit, with no new recommendation as per patient Patient presents this time because of weakness in both legs for 5 days associated with some exertional dyspnea. patient was found to have bilateral lower extremity cellulitis and was treated with cefazolin with clinical improvement and he was cleared for discharge by ID team on oral Keflex Also he was evaluated by wellfield technician.coronary artery disease s/p PCI OM 2013. He is status post cardiac catheterization revealing a 60% lesion in the proximal LAD. Medical therapy was recommended. I Discussed the case with wellfield technician team, his stable from their perspective for patient to be discharged today and follow-up with Dr. Espinoza in the office in one week Problems and management plan were discussed with the patient and he verbalized understanding and acceptance Patient was found stable and can be discharged home however he needs follow-up as an outpatient. Patient was instructed to follow up with PCP Dr. Hicks within one week and patient agrees. Also patient was instructed to follow up with Dr. Espinoza in one week My physical exam Gen: patient is a AAOx3, no distress CVS: S1-S2, RRR, no murmur Lungs: B/L CTA, no wheezing Abdomen: soft, no distention, no tenderness, positive bowel sounds -Extremity: no leg edema or induration. Improving bilateral leg swelling and cellulitis. Right upper leg lateral wound is healing, no purulent discharge Time spent more than 35 minutes Patient Condition at Discharge: Serious Plan - Discharge Summary Discharge Rx Participant: No New Discharge Prescriptions: New Atorvastatin [Lipitor] 40 mg PO DAILY #90 tab Petrolatum, White [Aquaphor] 1 applic TOPICAL DAILY PRN applic PRN Reason: Dry Skin Cephalexin [Keflex] 500 mg PO Q12HR 7 Days #14 cap Furosemide [Lasix] 40 mg PO DAILY tab INSULIN ASPART (NovoLOG) [NovoLOG (formulary)] 0 unit SQ ACHS vial Famotidine [Pepcid] 20 mg PO Q12HR tab Continue Finasteride 5 mg PO DAILY Edoxaban Tosylate [Savaysa] 60 mg PO DAILY lisinopriL [Zestril] 20 mg PO DAILY #1 tab Metoprolol Tartrate [Lopressor] 25 mg PO BID Oxybutynin Chloride 10 mg PO DAILY Fluticasone Nasal [place] [Flonase Nasal [place]] 1 spray EA NOSTRIL BID Nitroglycerin Sl Tabs [Nitrostat] 0.4 mg SL Q5M PRN PRN Reason: Chest Pain Clotrimazole Cream [Lotrimin Cream] 1 applic TOPICAL BID PRN PRN Reason: FUNGAL INFECTION Lacosamide [Vimpat] 200 mg PO BID Allopurinol [Zyloprim] 300 mg PO DAILY Discontinued Potassium Chloride [Klor-Con 10] 10 meq PO DAILY Furosemide [Lasix] 40 mg PO BID Discharge Medication List Finasteride 5 mg PO DAILY 04/18/14 [History] Edoxaban Tosylate [Savaysa] 60 mg PO DAILY 12/29/16 [History] lisinopriL [Zestril] 20 mg PO DAILY #1 tab 02/08/17 [Rx] Metoprolol Tartrate [Lopressor] 25 mg PO BID 02/05/19 [History] Fluticasone Nasal [place] [Flonase Nasal [place]] 1 spray EA NOSTRIL BID 10/18/19 [History] Oxybutynin Chloride 10 mg PO DAILY 10/18/19 [History] Allopurinol [Zyloprim] 300 mg PO DAILY 01/13/21 [History] Clotrimazole Cream [Lotrimin Cream] 1 applic TOPICAL BID PRN 01/13/21 [History] Lacosamide [Vimpat] 200 mg PO BID 01/13/21 [History] Nitroglycerin Sl Tabs [Nitrostat] 0.4 mg SL Q5M PRN 01/13/21 [History] Atorvastatin [Lipitor] 40 mg PO DAILY #90 tab 01/18/21 [Rx] Cephalexin [Keflex] 500 mg PO Q12HR 7 Days #14 cap 01/18/21 [Rx] Famotidine [Pepcid] 20 mg PO Q12HR tab 01/18/21 [Rx] Furosemide [Lasix] 40 mg PO DAILY tab 01/18/21 [Rx] INSULIN ASPART (NovoLOG) [NovoLOG (formulary)] 0 unit SQ ACHS vial 01/18/21 [Rx] Petrolatum, White [Aquaphor] 1 applic TOPICAL DAILY PRN applic 01/18/21 [Rx] Follow up Appointment(s)/Referral(s): [facility], [NON-STAFF] - Migue Hicks III, MD [Primary Care Provider] - 1-2 days Jacqueline Espinoza MD [STAFF PHYSICIAN] - 1 Week Activity/Diet/Wound Care/Special Instructions: Patient requires hospital bed to keep head of bed >30 degrees to alleviate orthopnea from CHF Discharge Disposition: TRANSFER TO SNF/ECF
[2021-01-19 10:33] VITALS: BP 113/58; RESP 20; TEMP 97.5
[2021-01-19 11:26] LABS: Glucose,Whole Blood 142 mg/dL (75-99)
[2021-01-19 11:52] VITALS: PULSE 48
--- NOTE | 2021-01-19 15:40 | PN ---
PROGRESS NOTE DATE OF SERVICE: 01/19/2021 REASON FOR FOLLOWUP: Bilateral lower extremity cellulitis. INTERVAL HISTORY: The patient is currently afebrile. Patient is breathing comfortably. Denies having any chest pain. No cough. No abdominal pain or pain to the lower extremity. PHYSICAL EXAMINATION: Blood pressure 113/58 with a pulse of 52, temperature 97.5. He is 97% on 2 L nasal cannula. General description is an elderly male lying in bed in no distress. RESPIRATORY SYSTEM: Unlabored breathing, clear to auscultation anteriorly. HEART: S1, S2. Regular rate and rhythm. ABDOMEN: Soft. No tenderness. Legs are currently wrapped up. Overall swelling and redness has decreased. LABS: Creatinine 1.20. DIAGNOSTIC IMPRESSION AND PLAN: Patient with bilateral lower extremity cellulitis, some superficial ulceration. Overall improvement on cefazolin. Finish therapy with oral Keflex 500 mg 3 times a day for a week and close outpatient followup. MMODL / IJN: [id number] /
--- NOTE | 2021-01-20 11:31 | CDI ---
Documentation Clarification Form Date: 01/20/2021 11:19:00 AM From: Magui Reyna Phone: If you have a question about this query, please contact Maria Luisa Motta Ultrasound Specialist at [phone] between 8am and 5pm. Admit Date: 01/13/2021 12:21:00 PM Patient Name: Hamlet Welsh Visit Number: [id number] Discharge Date: 01/19/2021 03:10:00 PM ATTENTION: The Clinical Documentation Specialists (CDI) and [facility] Coding Staff appreciate your assistance in clarifying documentation. Please respond to the clarification below the line at the bottom and electronically sign. The CDI & [facility] Coding staff will review the response and follow-up if needed. Please note: Queries are made part of the Legal Health Record. If you have any questions, please contact the author of this message via ITS. Dr. Giraldo Sheet Your patient has the documented diagnosis of bilateral cellulitis and diabetes throughout the chart. Please clarify if patient's bilateral cellulitis is linked to patient's diabets. A relationship between diagnoses cannot be assumed unless documented as such by the attending physician. In order to capture the severity of condition; please document the relationship, if any, between these diagnoses. History/Risk Factors: DM peripheral neuropathy, cellulitis Treatment: Consult ID for antibiotic and wound culture Aquacell dressings, Cefazolin 2g. q 8 hours Please clarify and document your clinical opinion, is the patient's cellulitis linked to patients diabetes? Cellulitis linked to diabetes Cellulitis not linked to diabetes Other explanation of clinical findings (please specify) Unable to determine (no explanation for clinical findings) Cellulitis not linked to diabetes MTDD
--- NOTE | 2021-01-21 15:10 | EST ---
EXERCISE STRESS AGE: 70 SEX: Male HT: 6'2" WT: 299 lbs. PROTOCOL: Stress Echo with Lumason STAGE: 3 DURATION OF EXERCISE: 8:00 HEART RATE REST: 90 BLOOD PRESSURE REST: 149/101 MAXIMUM HEART RATE ACHIEVED: 175 MAXIMUM BLOOD PRESSURE: 233/87 85% MPHR: 156 100% MPHR: 183 METS: 9.5 INDICATIONS: Shortness of breath. CLINICAL INFORMATION: Baseline EKG shows atrial fibrillation with slow ventricular rate and right bundle branch block. The patient was given intravenous Lexiscan as per protocol, did not have chest pain or diagnostic ST-segment depression. CONCLUSIONS: 1. Inconclusive EKG part of the stress test due to baseline EKG abnormalities. 2. Cardiolite portion of the stress test will be reported separately. MMODL / IJN: [id number] /
== END 2021-01-19 15:10 | DRG 602 ==
LOC: EC 10:04 → 3SCARD 12:21
PROVIDERS: ADMIT Internal Medicine; ATTEND Internal Medicine
PROC: B2111ZZ Fluoroscopy of Multiple Coronary Arteries using Low Osmolar Contrast (ICD-10-PCS; principal; 2021-01-16 07:30)
PROC: B2151ZZ Fluoroscopy of Left Heart using Low Osmolar Contrast (ICD-10-PCS; principal; 2021-01-16 07:30)
PROC: 4A023N7 Measurement of Cardiac Sampling and Pressure, Left Heart, Percutaneous Approach (ICD-10-PCS; principal; 2021-01-16 07:30)
DX: L03.115 Cellulitis of right lower limb (principal); I50.23 Acute on chronic systolic (congestive) heart failure; Z68.42 Body mass index [BMI] 45.0-49.9, adult; C85.10 Unspecified B-cell lymphoma, unspecified site; I13.0 Hypertensive heart and chronic kidney disease with heart failure and stage 1 through stage 4 chronic kidney disease, or unspecified chronic kidney disease; I48.19 Other persistent atrial fibrillation; L03.116 Cellulitis of left lower limb; N18.30 Chronic kidney disease, stage 3 unspecified; S80.821A Blister (nonthermal), right lower leg, initial encounter; J44.9 Chronic obstructive pulmonary disease, unspecified; D17.9 Benign lipomatous neoplasm, unspecified; E11.22 Type 2 diabetes mellitus with diabetic chronic kidney disease; E11.40 Type 2 diabetes mellitus with diabetic neuropathy, unspecified; E11.51 Type 2 diabetes mellitus with diabetic peripheral angiopathy without gangrene; E66.01 Morbid (severe) obesity due to excess calories; E78.5 Hyperlipidemia, unspecified; I25.10 Atherosclerotic heart disease of native coronary artery without angina pectoris; I25.5 Ischemic cardiomyopathy; I45.10 Unspecified right bundle-branch block; Z20.822 Contact with and (suspected) exposure to COVID-19; Z79.01 Long term (current) use of anticoagulants; Z79.4 Long term (current) use of insulin; Z79.899 Other long term (current) drug therapy; Z82.49 Family history of ischemic heart disease and other diseases of the circulatory system; Z82.5 Family history of asthma and other chronic lower respiratory diseases; Z83.3 Family history of diabetes mellitus; Z86.14 Personal history of Methicillin resistant Staphylococcus aureus infection; Z86.73 Personal history of transient ischemic attack (TIA), and cerebral infarction without residual deficits; Z92.21 Personal history of antineoplastic chemotherapy; Z88.0 Allergy status to penicillin; Z95.5 Presence of coronary angioplasty implant and graft; Z96.642 Presence of left artificial hip joint; Z99.81 Dependence on supplemental oxygen; I49.3 Ventricular premature depolarization; M10.9 Gout, unspecified; Z90.89 Acquired absence of other organs; M19.90 Unspecified osteoarthritis, unspecified site; K57.30 Diverticulosis of large intestine without perforation or abscess without bleeding; Z86.010 Personal history of colon polyps
CPT/HCPCS: 36415; 70450; 71046; 78452; 80048; 80053; 83036; 83605; 83880; 84484; 85025; 85610; 85730; 87070; 87077; 87186; 87205; 87635; 93005; 93017; 93306; 93458; 93970; 94760; 96374; 99285

== ENCOUNTER → 2021-04-27 | Outpatient (CLI) | payer OTHER ==
[2021-04-27 11:45] LABS: Appearance,Urine Cloudy (Clear); Bacteria,Urine Rare /hpf; Bilirubin,Urine Negative (Negative); Blood,Urine Small (Negative); Budding Yeast,Urine Few /hpf; Color,Urine Light Yellow; Glucose,Urine (UA) Negative (Negative); Ketones,Urine Negative (Negative); Leukocyte Esterase,Urine Large (Negative); Nitrite,Urine Negative (Negative); Protein,Urine Negative (Negative); RBC,Urine 7 /hpf (0-5); Specific Gravity,Urine 1.009 (1.001-1.035); Squamous Epithelial Cell,Urine 1 /hpf (0-4); Urobilinogen,Urine <2.0 mg/dL (<2.0); WBC,Urine >182 /hpf (0-5)
[2021-04-27 16:31] LABS: HCT 42.5 % (39.6-50.0); HGB 13.8 g/dL (13.0-17.0); MCHC 32.5 g/dL (32.0-37.0); MCV 98.6 fL (80.0-97.0); Mean Platelet Volume 11.6 fL (9.5-12.2); Platelet Count 197 X 10*3/uL (140-440); RBC 4.31 X 10*6/uL (4.40-5.60); RDW 15.2 % (11.5-14.5); WBC 9.44 X 10*3/uL (4.50-10.00)
[2021-04-27 17:47] LABS: % Iron Saturation 35.42 (15.00-50.00); African American GFR (CKD) 58.2 (60.0-200.0); Albumin 4.2 g/dL (3.80-4.90); Albumin/Globulin Ratio 1.5 (1.60-3.17); BUN/Creat Ratio 49.29 Ratio (12.00-20.00); Calcium 9.1 mg/dL (8.7-10.3); Globulin 2.8 g/dL (1.6-3.3); Magnesium 2.3 mg/dL (1.5-2.4); Non-African American GFR(CKD) 50.2 (60.0-200.0); Phosphorus 3.9 mg/dL (2.4-5.1); Potassium 4.6 mmol/L (3.5-5.5); Total Bilirubin 0.7 mg/dL (0.2-1.2); Uric Acid 6.1 mg/dL (3.7-8.7)
[2021-04-27 18:01] LABS: Ferritin 314.5 ng/mL (22.0-322.0)
[2021-04-27 19:00] LABS: Urine Creatinine 18.7 mg/dL
== END | disposition home or self-care (01) ==
LOC: LABWHC1 10:28
PROVIDERS: ATTEND Nurse Practitioner Family
DX: E55.9 Vitamin D deficiency, unspecified (principal); D64.9 Anemia, unspecified; M10.9 Gout, unspecified; N18.32 Chronic kidney disease, stage 3b; N39.0 Urinary tract infection, site not specified; N25.81 Secondary hyperparathyroidism of renal origin
CPT/HCPCS: 36415; 80053; 81001; 82043; 82306; 82570; 82728; 83540; 83550; 83735; 83970; 84100; 84550; 85027

== ENCOUNTER → 2021-05-07 | Outpatient (CLI) | payer BC ==
[2021-05-07 17:17] LABS: Appearance,Urine Clear (Clear); Bacteria,Urine Rare /hpf; Bilirubin,Urine Negative (Negative); Blood,Urine Small (Negative); Color,Urine Light Yellow; Glucose,Urine (UA) Negative (Negative); Hyaline Casts,Urine 5 /lpf (0-2); Ketones,Urine Negative (Negative); Leukocyte Esterase,Urine Large (Negative); Mucus,Urine Rare /hpf; Nitrite,Urine Negative (Negative); Protein,Urine Negative (Negative); RBC,Urine 22 /hpf (0-5); Specific Gravity,Urine 1.009 (1.001-1.035); Squamous Epithelial Cell,Urine <1 /hpf (0-4); Urobilinogen,Urine <2.0 mg/dL (<2.0); WBC,Urine 76 /hpf (0-5)
== END | disposition home or self-care (01) ==
LOC: LABWHC1 14:41
PROVIDERS: ATTEND Internal Medicine
DX: R10.9 Unspecified abdominal pain (principal)
CPT/HCPCS: 81001; 87077; 87086; 87186

== ENCOUNTER → 2021-06-08 | Outpatient (CLI) | payer BC ==
--- NOTE | 2021-06-08 15:17 | CT ---
EXAMINATION TYPE: CT ChestAbdPelvis wo con DATE OF EXAM: 06/08/2021 COMPARISON: CT 12/04/2020 HISTORY: lymphoma follow up CT DLP: 2329.7 mGycm. Automated Exposure Control for Dose Reduction was Utilized. TECHNIQUE: CT scan of the thorax, abdomen and pelvis is performed without IV contrast, patient received oral con trast only. FINDINGS: LUNGS: The lungs are grossly clear, there is no concerning parenchymal mass or nodule identified. T here is no pleural effusion or pneumothorax seen. The tracheobronchial tree is patent. MEDIASTINUM: There are no greater than 1 cm hilar or mediastinal lymph nodes. No pericardial effusi on is seen. Coronary artery calcifications again noted. There is prominence of pulmonary artery, con refuse driver pulmonary artery hypertension OTHER: No additional significant abnormality is seen. LIVER/GB: Gallstones are noted within the gallbladder. Liver shows no mass.. PANCREAS: No significant abnormality is seen. SPLEEN: No significant abnormality is seen. ADRENALS: No significant abnormality is seen. KIDNEYS: No significant abnormality is seen. BOWEL: No significant abnormality is seen. GENITAL ORGANS: No gross abnormality seen. LYMPH NODES: No greater than 1cm abdominal or pelvic lymph nodes are appreciated. OSSEOUS STRUCTURES: Postop change the left hip causes some streak artifact within the pelvis. OTHER: There is a port in the right pectoral region, catheter courses via the internal jugular approa ch to the level of the superior vena cava near the cavoatrial junction. IMPRESSION: Stable exam. Noncontrast. Correlate for possible pulmonary artery hypertension. Coronary artery disease. Cholelithiasis.
== END | disposition home or self-care (01) ==
LOC: RADCTMAIN 11:26
PROVIDERS: ATTEND Internal Medicine Hematology & Oncology
DX: C85.90 Non-Hodgkin lymphoma, unspecified, unspecified site (principal); I25.10 Atherosclerotic heart disease of native coronary artery without angina pectoris; K80.20 Calculus of gallbladder without cholecystitis without obstruction
CPT/HCPCS: 71250; 74176

== ENCOUNTER → 2021-12-10 | Outpatient (CLI) | payer BC ==
--- NOTE | 2021-12-10 15:55 | CT ---
EXAMINATION TYPE: CT ChestAbdPelvis wo con DATE OF EXAM: 12/10/2021 COMPARISON: 06/08/2021 HISTORY: 71-year-old male C85.99, f/u lymphoma TECHNIQUE: Contiguous axial scanning of the chest, abdomen, pelvis without IV contrast. Coronal and s agittal reconstructions performed. CT DLP: 1832.7 mGycm Automated exposure control for dose reduction was used. FINDINGS: CHEST: Right anterior chest wall injection port with catheter tip at the lower SVC level. There are normal s ize without pericardial effusion. Extensive three-vessel coronary artery calcifications are present. Mild atherosclerotic arch calcifications with conventional arch vessel branching anatomy. Interval development of mild, left greater than right asymmetric gynecomastia. Large caliber to the main right and left pulmonary arteries 3.4 and 2.9 cm, respectively, suggesting underlying pulmonary arterial hypertension. New 1.3 cm lower right paratracheal lymph node. New AP window lymph nodes measuring up to 1.2 cm. Larger made paratracheal lymph node measuring 9 mm. Low right paratracheal lymph node new measuring 7 mm. Very mild peripheral patchy groundglass changes in the lower lungs. Correlation should be made for po tential COVID pneumonia. New 6 mm left mid lung pulmonary nodule, axial image 31. Stable 2 mm peripheral right upper lobe pulm onary nodule, axial image 25. No pleural effusion. ABDOMEN: Lack of IV contrast limits assessment of the solid abdominal viscera, lymph nodes, and vascular struc tures. Noncontrast appearance of the liver, adrenal glands, spleen, and atrophic pancreas show no gross abno rmal body. Punctate 3 mm and smaller bilateral nonobstructive renal calculi. No hydronephrosis. There are possibly 3 layering gallstones measuring up to 1.6 cm. No abnormal gallbladder distention. Mild to moderate atherosclerotic calcifications infrarenal abdominal aorta and common iliac arteries. Small to moderate-sized fatty umbilical hernia measuring 4.3 cm wide is similar. No dilated small bowel, free fluid, or free air. No mesenteric or retroperitoneal lymphadenopathy. Normal appendix. Scattered moderate stool burden. Left-sided colonic diverticulosis. Redundant sigmoi d colon. No pericolonic inflammatory change. PELVIS: Extensive metal artifact from the patient's left hip total arthroplasty limits visualization of pelvi c structures. Prostate gland is estimated at 4.1 cm wide. Bladder partially distended. Patulous left inguinal canal. No obvious pelvic lymphadenopathy or abnormal fluid collection seen. A couple pelvic phleboliths. BONES: Left hip total arthroplasty. Moderate degenerative change right hip. Moderately advanced degenerative disc disease L5-S1. Artifacts relating to large patient body habitus. Hypertrophic facet arthropathy mid to lower lumbar spine. [facility] in the mid thoracic spine. No osseous destructive process. IMPRESSION: 1. MILD PERIPHERAL GROUNDGLASS INFILTRATES IN THE LOWER LUNGS. CORRELATE FOR EARLY DEVELOPING VERSUS A RECENTLY TREATED COVID PNEUMONIA. 2. THERE ARE A FEW MEDIASTINAL LYMPH NODES WHICH ARE NEW AND ENLARGED MEASURING UP TO 1.3 CM. GIVEN T HE GROUNDGLASS CHANGES IN THE LUNGS, THESE MAY BE REACTIVE. SHORT INTERVAL FOLLOW-UP RECOMMENDED L YMPHOMA PROGRESSION NOT EXCLUDED AT THIS TIME. 3. NEW 6 MM LEFT MIDLUNG PULMONARY NODULE. NONSPECIFIC, REASSESS AT FOLLOW-UP. 4. INCIDENTAL: PULMONARY ARTERY HYPERTENSION, CAD WITH 3 VESSEL CORONARY ARTERY CALCIFICATIONS. RODRICK LITHIASIS. NEPHROLITHIASIS. LEFT-SIDED COLONIC DIVERTICULOSIS.
== END | disposition home or self-care (01) ==
LOC: RADCTMAIN 10:36
PROVIDERS: ATTEND Internal Medicine Hematology & Oncology
DX: C85.99 Non-Hodgkin lymphoma, unspecified, extranodal and solid organ sites (principal); R91.1 Solitary pulmonary nodule; I27.21 Secondary pulmonary arterial hypertension; I25.10 Atherosclerotic heart disease of native coronary artery without angina pectoris; K80.20 Calculus of gallbladder without cholecystitis without obstruction; N20.0 Calculus of kidney; K57.30 Diverticulosis of large intestine without perforation or abscess without bleeding
CPT/HCPCS: 71250; 74176

== ENCOUNTER → 2022-01-24 | Outpatient (CLI) | payer BC ==
[2022-01-24 15:01] LABS: HCT 45.4 % (39.6-50.0); HGB 14.3 g/dL (13.0-17.0); MCH 31.2 pg (27.0-32.0); MCHC 31.5 g/dL (32.0-37.0); MCV 98.9 fL (80.0-97.0); Mean Platelet Volume 11.4 fL (9.5-12.2); NRBC Per 100 WBC 0 /100 WBCS (0.0-0.0); Platelet Count 174 X 10*3/uL (140-440); RBC 4.59 X 10*6/uL (4.40-5.60); RDW 14.6 % (11.5-14.5); WBC 8.51 X 10*3/uL (4.50-10.00)
[2022-01-24 16:29] LABS: % Iron Saturation 26.25 (15.00-50.00); African American GFR (CKD) 49.5 (60.0-200.0); Albumin 4.4 g/dL (3.8-4.9); Albumin/Globulin Ratio 1.44 (1.60-3.17); Anion Gap 20.7 mmol/L (10.00-18.00); BUN/Creat Ratio 28.11 Ratio (12.00-20.00); Blood Urea Nitrogen 44.7 mg/dL (9.0-27.0); Calcium 9.6 mg/dL (8.7-10.3); Carbon Dioxide 22.2 mmol/L (20.0-27.5); Globulin 3.1 g/dL (1.6-3.3); Magnesium 2.3 mg/dL (1.5-2.4); Non-African American GFR(CKD) 42.7 (60.0-200.0); Potassium 4.5 mmol/L (3.5-5.5); Total Bilirubin 1.3 mg/dL (0.30-1.20); Total Protein 7.4 g/dL (6.2-8.2)
[2022-01-24 16:30] LABS: Phosphorus 3.8 mg/dL (2.4-5.1); Uric Acid 5.8 mg/dL (3.7-8.7)
[2022-01-24 16:51] LABS: Appearance,Urine Clear (Clear); Bilirubin,Urine Negative (Negative); Blood,Urine Negative (Negative); Color,Urine Yellow (Yellow); Ketones,Urine Negative (Negative); Leukocyte Esterase,Urine Negative (Negative); Nitrite,Urine Negative (Negative); Protein,Urine Negative (Negative); Specific Gravity,Urine 1.024 (1.001-1.030); Urobilinogen,Urine 0.2 (0.2,1.0)
[2022-01-24 20:06] LABS: Urine Creatinine 66.7 mg/dL (39.0-259.0)
== END | disposition home or self-care (01) ==
LOC: LABWHC1 10:01
PROVIDERS: ATTEND Internal Medicine
DX: N25.81 Secondary hyperparathyroidism of renal origin (principal); N18.31 Chronic kidney disease, stage 3a; D64.9 Anemia, unspecified; N39.0 Urinary tract infection, site not specified; E55.9 Vitamin D deficiency, unspecified; M10.9 Gout, unspecified
CPT/HCPCS: 36415; 80053; 81003; 82043; 82306; 82570; 82728; 83540; 83550; 83735; 83970; 84100; 84550; 85027

== ENCOUNTER → 2022-03-15 | Outpatient (CLI) | payer BC ==
--- NOTE | 2022-03-15 15:16 | CT ---
EXAMINATION TYPE: CT ChestAbdPelvis wo con DATE OF EXAM: 03/15/2022 COMPARISON: CT dated 12/10/2021 HISTORY: Follow up for lymphoma. CT DLP: 1118 mGycm. Automated Exposure Control for Dose Reduction was Utilized. TECHNIQUE: CT scan of the thorax, abdomen and pelvis is performed without IV contrast. FINDINGS: LUNGS: The previously described 5 mm nodule along the left oblique fissure is less appreciated today measuring 4 mm. Minimal atelectasis seen in the left lung base. Unremarkable lungs otherwise. Patent trachea and main bronchi. No pleural effusion. MEDIASTINUM: Slightly enlarged mediastinal lymph nodes measuring up to 12 mm in the precarinal group compared to 13 mm previously and 10 mm in the prevascular group compared to 12 mm previously. No path ologically enlarged hilar or axillary lymph nodes by this nonenhanced CT scan. No progressive lymphad enopathy in the chest. Persistent cardiomegaly, coronary and arterial calcification as well as the di lated pulmonary trunk measuring up to 3.9 cm suggestive of pulmonary hypertension. No pericardial eff usion. OTHER: Unchanged position of the right upper chest wall Port-A-Cath. Small bilateral gynecomastia ch anges. Degenerative changes of the thoracic spine. No gross aggressive bone lesion. LIVER/GB: Cholelithiasis without evidence of acute cholecystitis. No definite hepatic focal lesion id entified. PANCREAS: Fatty infiltration of the pancreas. SPLEEN: No significant abnormality is seen. ADRENALS: No significant abnormality is seen. KIDNEYS: Few scattered bilateral tiny nonobstructing renal calculi measuring up to 3 mm. Suspected ti ny cyst at the lower pole of left kidney, suboptimally assessed by this nonenhanced CT scan. Otherwis e unremarkable kidneys. BOWEL: Grossly unremarkable nondistended stomach, duodenum and small bowel. Fecal loading of the rec harpreet and segments of the colon. Uncomplicated colonic diverticulosis. Normal appendix. REPRODUCTIVE ORGANS: Obscured by artifacts from the left hip prosthesis. LYMPH NODES: No greater than 1 cm abdominal or pelvic lymph nodes are appreciated. OSSEOUS STRUCTURES: Degenerative changes of the lumbar spine. No gross aggressive bone lesion. OTHER: Arterial atherosclerotic calcifications. No sizable ascites. Surgical clips seen in the scrotu m. IMPRESSION: 1. Slightly smaller previously seen mediastinal lymph nodes as described above, no progressive lympha denopathy in the chest. 2. No new suspicious or progressive lung lesion. 3. No pathologically enlarged lymph nodes in the abdomen or the pelvis. Other incidental findings as described above.
== END | disposition home or self-care (01) ==
LOC: RADPROMAIN 09:43
PROVIDERS: ATTEND Internal Medicine Hematology & Oncology
DX: C85.99 Non-Hodgkin lymphoma, unspecified, extranodal and solid organ sites (principal)
CPT/HCPCS: 71250; 74176

== ENCOUNTER 2022-06-06 17:22 | Inpatient (IN) | payer BC, MEDICARE ==
[2022-06-06] MEDS ORDERED: FUROSEMIDE 10 MG/ML 10 ML VIAL IV STA (17:36)
--- NOTE | 2022-06-06 17:55 | ED ---
General Adult HPI - General Stated complaint: CHF Time Seen by Provider: 06/06/22 17:30 Source: patient, EMS, RN notes reviewed, old records reviewed Mode of arrival: EMS - History of Present Illness Initial comments: This is a 71-year-old male presents emergency Department complaining of swollen legs. Patient states she's also more short of breath than normal. Patient states his legs are so swollen that he is unable to walk now. Patient denies any chest pain or palpitations. Patient denies any recent fever chills or cough. Patient denies any lightheadedness or dizziness. Patient denies any n ausea vomiting or diarrhea. Patient states his daughter rests his legs 3 times a week and a are bigger but there are no lesions or open wounds - Related Data Home Medications Medication Instructions Recorded Confirmed Finasteride 5 mg PO DAILY 04/18/14 01/13/21 Edoxaban Tosylate [Savaysa] 60 mg PO DAILY 12/29/16 01/13/21 Fluticasone Nasal [place] [Flonase 1 spray EA NOSTRIL BID 10/18/19 01/13/21 Nasal [place]] Oxybutynin Chloride 10 mg PO DAILY 10/18/19 01/13/21 Clotrimazole Cream [Lotrimin Cream] 1 applic TOPICAL BID PRN 01/13/21 01/13/21 Nitroglycerin Sl Tabs [Nitrostat] 0.4 mg SL Q5M PRN 01/13/21 01/13/21 allopurinoL [Zyloprim] 300 mg PO DAILY 01/13/21 01/13/21 Previous Rx's Medication Instructions Recorded lisinopriL [Zestril] 20 mg PO DAILY #1 tab 02/08/17 Atorvastatin [Lipitor] 40 mg PO DAILY #90 tab 01/18/21 Cephalexin [Keflex] 500 mg PO Q12HR 7 Days #14 cap 01/18/21 Famotidine [Pepcid] 20 mg PO Q12HR tab 01/18/21 Furosemide [Lasix] 40 mg PO DAILY tab 01/18/21 INSULIN ASPART (NovoLOG) [NovoLOG 0 unit SQ ACHS vial 01/18/21 (formulary)] Petrolatum, White [Aquaphor] 1 applic TOPICAL DAILY PRN applic 01/18/21 Lacosamide [Vimpat] 200 mg PO BID #10 tab 01/19/21 Metoprolol Tartrate [Lopressor] 12.5 mg PO BID #0 01/19/21 Allergies Allergy/AdvReac Type Severity Reaction Status Date / Time Penicillins Allergy Unknown Verified 01/13/21 11:36 Childhood/Patient went into a coma Review of Systems ROS Statement: Those systems with pertinent positive or pertinent negative responses have been documented in the HPI. ROS Other: All systems not noted in ROS Statement are negative. Past Medical History Past Medical History: Atrial Fibrillation, Asthma, Coronary Artery Disease (CAD), Cancer, Heart Failure, Hyperlipidemia, Hypertension, Osteoarthritis (OA), Prostate Disorder, Renal Disease, Vascular Disorder Additional Past Medical History / Comment(s): PVD, multiple wounds bilateral leg s/feet and has current L foot wound, dry scaley skin bilateral legs/feet, NIDDM type II-no longer on medications since weight loss, neuropathy bilateral legs/feet, subcutaneous B cell lymphoma diagnosed 08/2016 and completed chemotherapy 01/2017, CKD stage III, gout, back pain if stands too long, di verticular disease, benign colon polyps, BPH History of Any Multi-Drug Resistant Organisms: MRSA Date of last positivie culture/infection: 05/18/17 MDRO Source:: RIGHT LEG Past Surgical History: Heart Catheterization With Stent, Joint Replacement, Orthopedic Surgery, Tonsillectomy Additional Past Surgical History / Comment(s): 2013 PCI with 2 stents, infusaport R upper chest, 8 hand surgeries after injury in [place]-skin grafts/tendon repair-skin taken from L upper chest and bilateral ankle tendon donors, L total hip arthroplasty, colonoscopies/benign polyps. Past Anesthesia/Blood Transfusion Reactions: Previous Problems w/ Anesthesia Additional Past Anesthesia/Blood Transfusion Reaction / Comment(s): Difficulty waking with 2 surgeries performed while in the [employer] Date of Last Stent Placement:: 2013 Past Psychological History: No Psychological Hx Reported Smoking Status: Never smoker Past Alcohol Use History: Occasional Past Drug Use History: None Reported - Past Family History Mother Family Medical History: COPD, Diabetes Mellitus Additional Family Medical History / Comment(s): Mother of a VT at the age of 61 yrs. She was a heavy smoker. Father History Unknown: Yes Family Medical History: Myocardial Infarction (VT) Additional Family Medical History / Comment(s): Pt does not know father's medical history General Exam - General Exam Comments Initial Comments: GENERAL: Patient is well-developed and well-nourished. Patient is nontoxic and well- hydrated and is in mild distress. ENT: Neck is soft and supple. No significant lymphadenopathy is noted. Oropharynx is clear. Moist mucous membranes. Neck has full range of motion without elicit ing any pain. EYES: The sclera were anicteric and conjunctiva were pink and moist. Extraocular m ovements were intact and pupils were equal round and reactive to light. Eyelids were unremarkable. PULMONARY: Unlabored respirations. Good breath sounds bilaterally. No audible rales rhonchi or wheezing was noted. CARDIOVASCULAR: There is a regular rate and rhythm without any murmurs gallops or rubs. ABDOMEN: Soft and nontender with normal bowel sounds. SKIN: Skin is clear with no lesions or rashes and otherwise unremarkable. NEUROLOGIC: Patient is alert and oriented x3. Cranial nerves II through XII are grossly intact. Motor and sensory are also intact. Normal speech, volume and content. Symmetrical smile. MUSCULOSKELETAL: Normal extremities with adequate strength and full range of motion. Bilateral edema massive amount LYMPHATICS: No significant lymphadenopathy is noted PSYCHIATRIC: Normal psychiatric evaluation. Course Vital Signs 06/06/22 06/06/22 06/06/22 17:28 17:39 18:39 Temperature 98.0 F Pulse Rate 60 64 Respiratory 18 18 18 Rate Blood Pressure 98/72 107/74 O2 Sat by Pulse 97 96 Oximetry Medical Decision Making - Medical Decision Making EKG shows atrial fibrillation at 82 bpm QRS is 178 QT interval 422 QTC is 460. Patient has a right bundle branch block. Chest x-ray shows mild pulmonary edema. Her patient received Lasix in the emergency department. Repeat EKG was showed atrial fibrillation at 90 bpm QRS is 175 QT interval 421 QTC is 416. Patient's EKG continued to show a right bundle branch block. No changes in EKG from the first EKG. I spoke with EKG MrJayson hospitalist agreed to admit the patient admitted the patient I consult cardiology. I spoke with Dr. Arndt and he agreed to see the patient consult I started heparin again in the emergency department I continue aspirin Nitropaste on the floor. - Lab Data Result diagrams: 06/06/22 17:47 06/06/22 17:47 Lab Results 06/06/22 06/06/22 06/06/22 Range/Units 17:47 17:47 17:47 WBC 11.5 H (3.8-10.6) k/uL RBC 4.16 L (4.30-5.90) m/uL Hgb 13.6 (13.0-17.5) gm/dL Hct 41.8 (39.0-53.0) % MCV 100.4 H (80.0-100.0) fL MCH 32.7 (25.0-35.0) pg MCHC 32.5 (31.0-37.0) g/dL RDW 15.8 H (11.5-15.5) % Plt Count 174 (150-450) k/uL MPV 9.4 Neutrophils % 84 % Lymphocytes % 7 % Monocytes % 7 % Eosinophils % 0 % Basophils % 0 % Neutrophils # 9.6 H (1.3-7.7) k/uL Lymphocytes # 0.8 L (1.0-4.8) k/uL Monocytes # 0.8 (0-1.0) k/uL Eosinophils # 0.0 (0-0.7) k/uL Basophils # 0.0 (0-0.2) k/uL Hypochromasia Moderate Macrocytosis Slight PT 14.9 H (9.0-12.0) sec INR 1.4 H (<1.2) APTT 26.7 (22.0-30.0) sec Sodium 134 L (137-145) mmol/L Potassium 4.5 (3.5-5.1) mmol/L Chloride 95 L (98-107) mmol/L Carbon Dioxide 24 (22-30) mmol/L Anion Gap 15 mmol/L BUN 75 H (9-20) mg/dL Creatinine 1.93 H (0.66-1.25) mg/dL Est GFR (CKD-EPI)AfAm 39 (>60 ml/min/1.73 sqM) Est GFR (CKD-EPI)NonAf 34 (>60 ml/min/1.73 sqM) Glucose 216 H (74-99) mg/dL Plasma Lactic Acid Walter (0.7-2.0) mmol/L Calcium 9.0 (8.4-10.2) mg/dL Magnesium 2.4 H (1.6-2.3) mg/dL Total Bilirubin 3.0 H (0.2-1.3) mg/dL AST 127 H (17-59) U/L ALT 113 H (4-49) U/L Alkaline Phosphatase 142 H (38-126) U/L Troponin I (0.000-0.034) ng/mL NT-Pro-B Natriuret Pep pg/mL Total Protein 6.9 (6.3-8.2) g/dL Albumin 3.9 (3.5-5.0) g/dL 06/06/22 06/06/22 06/06/22 Range/Units 17:47 17:47 17:47 WBC (3.8-10.6) k/uL RBC (4.30-5.90) m/uL Hgb (13.0-17.5) gm/dL Hct (39.0-53.0) % MCV (80.0-100.0) fL MCH (25.0-35.0) pg MCHC (31.0-37.0) g/dL RDW (11.5-15.5) % Plt Count (150-450) k/uL MPV Neutrophils % % Lymphocytes % % Monocytes % % Eosinophils % % Basophils % % Neutrophils # (1.3-7.7) k/uL Lymphocytes # (1.0-4.8) k/uL Monocytes # (0-1.0) k/uL Eosinophils # (0-0.7) k/uL Basophils # (0-0.2) k/uL Hypochromasia Macrocytosis PT (9.0-12.0) sec INR (<1.2) APTT (22.0-30.0) sec Sodium (137-145) mmol/L Potassium (3.5-5.1) mmol/L Chloride (98-107) mmol/L Carbon Dioxide (22-30) mmol/L Anion Gap mmol/L BUN (9-20) mg/dL Creatinine (0.66-1.25) mg/dL Est GFR (CKD-EPI)AfAm (>60 ml/min/1.73 sqM) Est GFR (CKD-EPI)NonAf (>60 ml/min/1.73 sqM) Glucose (74-99) mg/dL Plasma Lactic Acid Walter 3.6 H* (0.7-2.0) mmol/L Calcium (8.4-10.2) mg/dL Magnesium (1.6-2.3) mg/dL Total Bilirubin (0.2-1.3) mg/dL AST (17-59) U/L ALT (4-49) U/L Alkaline Phosphatase (38-126) U/L Troponin I 0.055 H* (0.000-0.034) ng/mL NT-Pro-B Natriuret Pep 88859 pg/mL Total Protein (6.3-8.2) g/dL Albumin (3.5-5.0) g/dL Disposition Clinical Impression: Leg edema, Dyspnea, Pulmonary edema, Elevated troponin, Lactic acidosis Disposition: ADMITTED IP TO THIS HOSP Referrals: Migue Hicks III, MD [Primary Care Provider] - 1-2 days Time of Disposition: 19:37
[2022-06-06 18:20] LABS: Basophils % (A) 0 %; Eosinophils % (A) 0 %; HCT 41.8 % (39.0-53.0); HGB 13.6 gm/dL (13.0-17.5); Hypochromasia Moderate; Lymphocytes # (A) 0.8 k/uL (1.0-4.8); Lymphocytes % (A) 7 %; MCH 32.7 pg (25.0-35.0); MCHC 32.5 g/dL (31.0-37.0); MCV 100.4 fL (80.0-100.0); Macrocytosis Slight; Mean Platelet Volume 9.4; Monocytes # (A) 0.8 k/uL (0-1.0); Monocytes % (A) 7 %; Neutrophils # (A) 9.6 k/uL (1.3-7.7); Neutrophils % (A) 84 %; Platelet Count 174 k/uL (150-450); RBC 4.16 m/uL (4.30-5.90); RDW 15.8 % (11.5-15.5); WBC 11.5 k/uL (3.8-10.6)
[2022-06-06 18:31] LABS: Albumin 3.9 g/dL (3.5-5.0); Magnesium 2.4 mg/dL (1.6-2.3); Potassium 4.5 mmol/L (3.5-5.1); Total Protein 6.9 g/dL (6.3-8.2)
[2022-06-06 18:32] LABS: INR 1.4 (<1.2); Partial Thromboplastin Time 26.7 sec (22.0-30.0); Prothrombin Time 14.9 sec (9.0-12.0)
--- NOTE | 2022-06-06 18:58 | XR ---
EXAMINATION TYPE: XR chest 2V DATE OF EXAM: 06/06/2022 6:50 PM COMPARISON: Chest radiographs from 01/13/2021 TECHNIQUE: XR chest 2V Frontal and lateral views of the chest. CLINICAL INDICATION:Male, 71 years old with history of difficulty breathing; FINDINGS: Lungs/Pleura: There is no evidence of pleural effusion, focal consolidation, or pneumothorax. Pulmonary vascularity: Mild pulmonary vascular congestion. Heart/mediastinum: Cardiomediastinal silhouette is unremarkable. Musculoskeletal: No acute osseous pathology. Lines/Tubes: [id number] projecting over the right hemithorax with distal tip at the cavoatrial junction. IMPRESSION: 1. Mild pulmonary vascular congestion correlate with serum BNP. 2. Cardiomegaly
[2022-06-06] MEDS ORDERED: NITROGLYCERIN SL TABS 0.4 MG TAB SUBLINGUAL PRN (19:53)
[2022-06-06 21:34] LABS: Glucose,Whole Blood 181 mg/dL (70-110)
[2022-06-06] MEDS ORDERED: ERGOCALCIFEROL 1,250 MCG (50,000 IU) CAPSULE PO SCH (22:15)
[2022-06-06] MEDS ORDERED: FAMOTIDINE 20 MG TAB PO SCH (22:15)
[2022-06-06] MEDS: LACOSAMIDE 50 MG TABLET PO SCH (23:05)
[2022-06-06] MEDS: APIXABAN 2.5 MG TABLET PO SCH (23:06)
[2022-06-06] MEDS: FUROSEMIDE 10 MG/ML 4 ML VIAL IV SCH (23:06)
[2022-06-06] MEDS: NITROGLYCERIN OINT 1 INCH/GM PACKET TOPICAL SCH (23:11)
[2022-06-07 06:05] LABS: Glucose,Whole Blood 150 mg/dL (70-110)
[2022-06-07] MEDS: NITROGLYCERIN OINT 1 INCH/GM PACKET TOPICAL SCH ×4 (06:10→23:51)
[2022-06-07] MEDS: INSULIN ASPART (NovoLOG) 100 UNIT/ML VIAL SQ SCH ×4 (06:10→21:06)
[2022-06-07] MEDS: APIXABAN 2.5 MG TABLET PO SCH ×2 (08:41→21:04)
[2022-06-07] MEDS: allopurinoL 300 MG TAB PO SCH (08:41)
[2022-06-07] MEDS: FUROSEMIDE 10 MG/ML 4 ML VIAL IV SCH ×3 (08:41→23:51)
[2022-06-07] MEDS: FAMOTIDINE 20 MG TAB PO SCH (08:42)
[2022-06-07] MEDS: FINASTERIDE 5 MG TAB PO SCH (08:42)
[2022-06-07] MEDS: FOLIC ACID 1 MG TAB PO SCH (08:42)
[2022-06-07] MEDS: LACOSAMIDE 50 MG TABLET PO SCH ×2 (08:42→21:04)
[2022-06-07] MEDS: FLUTICASONE 50MCG/SPRAY NASAL 16GM EA NOSTRIL SCH ×2 (08:42→21:04)
[2022-06-07] MEDS ORDERED: ASPIRIN 325 MG TAB PO SCH (09:00)
[2022-06-07 09:33] LABS: Chol/HDL Ratio 2.49 Ratio; LDL Cholesterol,Calculated 25.3 mg/dL (0.0-131.0)
[2022-06-07] MEDS ORDERED: ALBUTEROL NEBULIZED 2.5 MG/3 ML INHALATION PRN (09:36)
[2022-06-07 10:59] LABS: Albumin 3.5 g/dL (3.5-5.0); Calcium 8.6 mg/dL (8.4-10.2); Potassium 3.7 mmol/L (3.5-5.1); Total Bilirubin 2.9 mg/dL (0.2-1.3); Total Protein 6.5 g/dL (6.3-8.2)
[2022-06-07 11:22] LABS: Anisocytosis Slight; Basophils % (A) 0 %; Eosinophils # (A) 0.1 k/uL (0-0.7); Eosinophils % (A) 1 %; HCT 40.1 % (39.0-53.0); Hypochromasia Moderate; Lymphocytes # (A) 1.2 k/uL (1.0-4.8); Lymphocytes % (A) 17 %; MCH 32.6 pg (25.0-35.0); MCHC 32.3 g/dL (31.0-37.0); MCV 100.8 fL (80.0-100.0); Macrocytosis Slight; Mean Platelet Volume 9.3; Monocytes # (A) 0.5 k/uL (0-1.0); Monocytes % (A) 7 %; Neutrophils # (A) 5.2 k/uL (1.3-7.7); Neutrophils % (A) 72 %; Platelet Count 141 k/uL (150-450); Poikilocytosis Slight; RBC 3.98 m/uL (4.30-5.90); RDW 16.3 % (11.5-15.5); WBC 7.2 k/uL (3.8-10.6)
[2022-06-07 11:41] LABS: Glucose,Whole Blood 128 mg/dL (70-110)
[2022-06-07] MEDS ORDERED: CLINDAMYCIN 300 MG in DEXTROSE 5% IN WATER 50 ML IVPB SCH ×2 (12:00)
--- NOTE | 2022-06-07 12:50 | P.HPIM ---
History of Present Illness H&P Date: 06/07/22 This is a 71 year old male who presents with complaints of swollen legs with increased shortness of breath that has been increasing over the last few months. Patient also reports episode of chest tightness midsternal throughout the evening but denies "chest pain." No fever or chills, no cough. Reports urinary retention with weak stream. He does have enlarged prostate and is maintained on finasteride. He ran over his left great toe with his walker with injury to nail bed, he does have some purulent drainage which will be cultured. There is lower extremity cellulitis on the left and patient did have maggots in the wound. Infectious disease will be consulted. On admission chest X-ray shows mild pulmonary vascular congestion. [place] [address] and patient has been started on IV lasix 40 mg every 8 hours. Troponin elevation at 0.055, 0.062, 0.066, 0.070 which is more consistent with CHF exacerbation, cardiology has been consulted. Liver enzymes are also elevated, creatinine 1.93. Patient has medical history significant for atrial fibrillation anticoagulated with eliquis, asthma, heart failure, hyperlipidemia, hypertension, chronic PVD, diabetes, neuropathy, History of B cell lymphoma, chronic kidney disease. He follows with Dr Talley in the office, primary care provider Dr Hicks. Most recent echocardiogram in 2020 showing EF 50 to 55% with mild aortic regurg, mild mitral regurg, and mild tricuspid regurg. Patient is admitted to the hospital for CHF exacerbation, and cellulitis. He has been started on IV lasix, IV clindamycin emprically as he has allergy to penicillin and 2D echocardiogram has been ordered. REVIEW OF SYSTEMS: CONSTITUTIONAL: No fever, no malaise, no fatigue. Reports generalized weakness HEENT: No recent visual problems or hearing problems. Denied any sore throat. CARDIOVASCULAR: Reports chest tightness, PND, no palpitations, no syncope. PULMONARY: Reports shortness of breath, no cough, no hemoptysis. GASTROINTESTINAL: No diarrhea, no nausea, no vomiting, no abdominal pain. NEUROLOGICAL: No headaches, no weakness, no numbness. HEMATOLOGICAL: Denies any bleeding or petechiae. GENITOURINARY: Denies any burning micturition, frequency, or urgency. Reports retention, weak stream MUSCULOSKELETAL/RHEUMATOLOGICAL: Denies any joint pain. Reports bilateral lower extremity edema left greater than right. ENDOCRINE: Denies any polyuria or polydipsia. The rest of the 14-point review of systems is negative. PHYSICAL EXAMINATION: GENERAL: The patient is alert and oriented x3, not in any acute distress. Well developed, well nourished. Obese, HEENT: Pupils are round and equally reacting to light. EOMI. No scleral icterus. No conjunctival pallor. Normocephalic, atraumatic. No pharyngeal erythema. No thyromegaly. CARDIOVASCULAR: S1 and S2 present. No murmurs, rubs, or gallops. PULMONARY: Chest is clear to auscultation, no wheezing or crackles. ABDOMEN: Soft, nontender, nondistended, normoactive bowel sounds. No palpable organomegaly. MUSCULOSKELETAL: No joint swelling or deformity. EXTREMITIES: No cyanosis, clubbing. Bilateral lower extremity peripheral edema worse on the left. NEUROLOGICAL: Gross neurological examination did not reveal any focal deficits. SKIN: No rashes. Erythema to left lower extremity left great toe nail blood with bloody purulent drainage surrounding nail bed. 3rd toe on right is blackened in color. Assessment and plan Assessment Acute Systolic heart failure, has been started on IV lasix Troponin leak Left lower extremity cellulitis with sepsis with great toe wound has purulent drainage Luekocytosis secondary to above Acute on chronic renal injury most likely prerenal azotemia Chronic kidney disease stage 3 Hyponatremia hypervolemic Diabetes mellitus with hyperglycemia Elevated LFT's most likely from vascular congestion will monitor trends Chronic atrial fibrillation anticoagulated with eliquis Coronary artery disease status post stenting History of COPD / Asthma Hyperlipidemia Hypertension, currently normotensive Chronic peripheral vascular disease History B cell lymphoma underwent treatment in 2017 History of BPH Obesity GI Prophylaxis Pepcid DVT Prophylaxis Eliquis Plan Cardiology consultation 2D echocardiogram pending Patient has been started on IV lasix with strict I & O Empiric antibiotic coverage with infectious disease consultation Wound cultures Resume appropriate home medications Repeat labs in AM Monitor LFT's PT/OT will be consulted The impression and plan of care has been dictated by Alisha Gardner, Nurse Practitioner as directed. Dr. Domenica MD I have performed a history and physical examination and medical decision making of this patient, discussed the same with the dictator, and agree with the dictators assessment and plan as written, documented as a scribe. Based on total visit time, I have performed more than 50% of this visit. 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, CKD stage III, gout, back pain if stands too long, diverticular disease, benign colon polyps, BPH History of Any Multi-Drug Resistant Organisms: MRSA Date of last positivie culture/infection: 05/18/17 MDRO Source:: RIGHT LEG Past Surgical History: Heart Catheterization With Stent, Joint Replacement, Orthopedic Surgery, Tonsillectomy Additional Past Surgical History / Comment(s): 2013 PCI with 2 stents, infusaport R upper chest, 8 hand surgeries after injury in [facility]-skin grafts/tendon repair-skin taken from L upper chest and bilateral ankle tendon donors, L total hip arthroplasty, colonoscopies/benign polyps. Past Anesthesia/Blood Transfusion Reactions: Previous Problems w/ Anesthesia Additional Past Anesthesia/Blood Transfusion Reaction / Comment(s): Difficulty waking with 2 surgeries performed while in the [employer] Date of Last Stent Placement:: 2013 Past Psychological History: No Psychological Hx Reported Additional Psychological History / Comment(s): Pt has clausterphobia. Pt resides with his spouse. He uses a walker to ambulate but this is becoming more difficult. Spouse states she feels they could use some home care assistance. She states he is not to go into a prison. 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 He drives. Smoking Status: Never smoker Past Alcohol Use History: Occasional Past Drug Use History: None Reported - Past Family History Mother Family Medical History: COPD, Diabetes Mellitus Additional Family Medical History / Comment(s): Mother of a CT at the age of 61 yrs. She was a heavy smoker. Father History Unknown: Yes Family Medical History: Myocardial Infarction (CT) Additional Family Medical History / Comment(s): Pt does not know father's medical history Medications and Allergies Home Medications Medication Instructions Recorded Confirmed Type Finasteride 5 mg PO DAILY 04/18/14 06/06/22 History Fluticasone Nasal [place] [Flonase 1 spray EA NOSTRIL BID 10/18/19 06/06/22 History Nasal [place]] Oxybutynin Chloride 10 mg PO DAILY 10/18/19 06/06/22 History Clotrimazole Cream [Lotrimin Cream] 1 applic TOPICAL BID PRN 01/13/21 06/06/22 History Nitroglycerin Sl Tabs [Nitrostat] 0.4 mg SL Q5M PRN 01/13/21 06/06/22 History allopurinoL [Zyloprim] 300 mg PO DAILY 01/13/21 06/06/22 History Famotidine [Pepcid] 20 mg PO Q12HR tab 01/18/21 06/06/22 Rx Albuterol Inhaler [Ventolin Hfa 2 puff INHALATION RT-Q6H PRN 06/06/22 06/06/22 History Inhaler] Apixaban [Eliquis] 2.5 mg PO BID 06/06/22 06/06/22 History Atorvastatin [Lipitor] 40 mg PO HS 06/06/22 06/06/22 History Beclomethasone Dip 80 Mcg/Puff 1 puff INHALATION RT-BID 06/06/22 06/06/22 Histo ry [Qvar 80 mcg] Dulaglutide [Trulicity] 0.75 mg SQ RODRIGUEZ 06/06/22 06/06/22 History Empagliflozin [Jardiance] 10 mg PO DAILY 06/06/22 06/06/22 History Ergocalciferol [Vitamin D2 (1250 1,250 mcg PO Q14D 06/06/22 06/06/22 History Mcg = 03221 Iu)] Folic Acid 1 mg PO DAILY 06/06/22 06/06/22 History Furosemide [Lasix] 40 mg PO BID 06/06/22 06/06/22 History Lacosamide [Vimpat] 100 mg PO BID 06/06/22 06/06/22 History Levothyroxine Sodium [Synthroid] 50 mcg PO DAILY 06/06/22 06/06/22 History Petrolatum, White [Aquaphor] 1 applic TOPICAL BID PRN 06/06/22 06/06/22 History Spironolactone 25 mg PO DAILY 06/06/22 06/06/22 History calcitrioL [Calcitriol] 0.25 mcg PO MOFR 06/06/22 06/06/22 History Allergies Allergy/AdvReac Type Severity Reaction Status Date / Time Penicillins Allergy Unknown Verified 01/13/21 11:36 Childhood/Patient went into a coma Physical Exam Vitals: Vital Signs Temp Pulse Pulse Resp BP BP Pulse Ox 06/07/22 03:45 98.4 F 72 18 117/73 96 06/06/22 23:10 97.9 F 85 19 113/70 99 06/06/22 21:25 98 F 71 18 116/75 99 06/06/22 21:09 72 16 102/70 100 06/06/22 18:39 64 18 107/74 96 06/06/22 17:39 18 06/06/22 17:28 98.0 F 60 18 98/72 97 Intake and Output 06/06/22 06/07/22 06/07/22 22:59 06:59 14:59 Intake Total 480 Output Total 875 Balance -395 Intake: Oral 480 Output: Urine 875 Other: Voiding Method Urinal Urinal # Voids 1 Weight 136.078 kg 163.5 kg Results CBC & Chem 7: 06/07/22 09:42 06/07/22 09:42 Labs: Abnormal Lab Results - Last 24 Hours (Table) 06/06/22 06/06/22 06/06/22 Range/Units 17:47 17:47 17:47 WBC 11.5 H (3.8-10.6) k/uL RBC 4.16 L (4.30-5.90) m/uL MCV 100.4 H (80.0-100.0) fL RDW 15.8 H (11.5-15.5) % Neutrophils # 9.6 H (1.3-7.7) k/uL Lymphocytes # 0.8 L (1.0-4.8) k/uL PT 14.9 H (9.0-12.0) sec INR 1.4 H (<1.2) Sodium 134 L (137-145) mmol/L Chloride 95 L (98-107) mmol/L BUN 75 H (9-20) mg/dL Creatinine 1.93 H (0.66-1.25) mg/dL Glucose 216 H (74-99) mg/dL POC Glucose (mg/dL) (70-110) mg/dL Plasma Lactic Acid Walter (0.7-2.0) mmol/L Magnesium 2.4 H (1.6-2.3) mg/dL Total Bilirubin 3.0 H (0.2-1.3) mg/dL AST 127 H (17-59) U/L ALT 113 H (4-49) U/L Alkaline Phosphatase 142 H (38-126) U/L Troponin I (0.000-0.034) ng/mL 06/06/22 06/06/22 06/06/22 Range/Units 17:47 17:47 21:05 WBC (3.8-10.6) k/uL RBC (4.30-5.90) m/uL MCV (80.0-100.0) fL RDW (11.5-15.5) % Neutrophils # (1.3-7.7) k/uL Lymphocytes # (1.0-4.8) k/uL PT (9.0-12.0) sec INR (<1.2) Sodium (137-145) mmol/L Chloride (98-107) mmol/L BUN (9-20) mg/dL Creatinine (0.66-1.25) mg/dL Glucose (74-99) mg/dL POC Glucose (mg/dL) (70-110) mg/dL Plasma Lactic Acid Walter 3.6 H* (0.7-2.0) mmol/L Magnesium (1.6-2.3) mg/dL Total Bilirubin (0.2-1.3) mg/dL AST (17-59) U/L ALT (4-49) U/L Alkaline Phosphatase (38-126) U/L Troponin I 0.055 H* 0.062 H* (0.000-0.034) ng/mL 06/06/22 06/06/22 06/07/22 Range/Units 21:33 23:39 02:23 WBC (3.8-10.6) k/uL RBC (4.30-5.90) m/uL MCV (80.0-100.0) fL RDW (11.5-15.5) % Neutrophils # (1.3-7.7) k/uL Lymphocytes # (1.0-4.8) k/uL PT (9.0-12.0) sec INR (<1.2) Sodium (137-145) mmol/L Chloride (98-107) mmol/L BUN (9-20) mg/dL Creatinine (0.66-1.25) mg/dL Glucose (74-99) mg/dL POC Glucose (mg/dL) 181 H (70-110) mg/dL Plasma Lactic Acid Walter (0.7-2.0) mmol/L Magnesium (1.6-2.3) mg/dL Total Bilirubin (0.2-1.3) mg/dL AST (17-59) U/L ALT (4-49) U/L Alkaline Phosphatase (38-126) U/L Troponin I 0.066 H* 0.070 H* (0.000-0.034) ng/mL 06/07/22 Range/Units 06:03 WBC (3.8-10.6) k/uL RBC (4.30-5.90) m/uL MCV (80.0-100.0) fL RDW (11.5-15.5) % Neutrophils # (1.3-7.7) k/uL Lymphocytes # (1.0-4.8) k/uL PT (9.0-12.0) sec INR (<1.2) Sodium (137-145) mmol/L Chloride (98-107) mmol/L BUN (9-20) mg/dL Creatinine (0.66-1.25) mg/dL Glucose (74-99) mg/dL POC Glucose (mg/dL) 150 H (70-110) mg/dL Plasma Lactic Acid Walter (0.7-2.0) mmol/L Magnesium (1.6-2.3) mg/dL Total Bilirubin (0.2-1.3) mg/dL AST (17-59) U/L ALT (4-49) U/L Alkaline Phosphatase (38-126) U/L Troponin I (0.000-0.034) ng/mL Thrombosis Risk Factor Assmnt - Choose All That Apply Any of the Below Risk Factors Present?: Yes Each Factor Represents 1 point: Obesity (BMI >25), Swollen legs (current) Other Risk Factors: Yes Each Risk Factor Represents 3 Points: Age 75 years or older Other congenital or acquired thrombophilia - If yes, enter type in comment: Yes Thrombosis Risk Factor Assessment Total Risk Factor Score: 5 Thrombosis Risk Factor Assessment Level: High Risk Assessment and Plan Time with Patient: Less than 30
--- NOTE | 2022-06-07 13:10 | CONS ---
CONSULTATION This is a elderly 71-year-old gentleman with a known history of ischemic heart disease. Sometime in 2013, he had stenting of circumflex marginal performed by Dr. Eduardo Bar. He also had a recent cardiac cath in [address] Talley, which revealed 55-60 percent calcified mid LAD lesion for which he was treated medically. In December [address] Talley revealed a 60% or so mid LAD lesion without significant disease in the circumflex or RCA. He has been having edema of lower extremities, which progressively got worse. He also felt short of breath and came into the hospital. Clinical picture is that of exacerbation of heart failure, probably a combination of mostly diastolic and also some systolic heart failure. His BNP was elevated to about 14,000. Troponin is flat at 0.06 and 0.07. The patient is resting comfortably, has significant edema of lower extremities, most of which seems to be chronic edema. His renal function is also impaired with a creatinine in the range of 1.73. EKG revealed atrial fibrillation, controlled ventricular rate with the IVCD. Apparently this atrial fib is not a new diagnosis. Patient is known to have atrial fibrillation on Eliquis 2.5 mg b.i.d. He also has type 2 diabetes, hypertension and hyperlipidemia. PAST MEDICAL HISTORY: 1. CAD with previous PCI. 2. Diabetes. 3. Hyperlipidemia. 4. Hypertension. 5. History of chronic lower extremity edema. MEDICATIONS: Medications at home include: Lasix 40 mg b.i.d., Jardiance, atorvastatin 40 mg daily, Eliquis 2.5 mg b.i.d., albuterol inhaler. He also takes some Aldactone 25 mg daily. PHYSICAL EXAMINATION: On examination, blood pressure is 118/70, pulse rate is 70 per minute , irregular. HEENT unremarkable. Fundus was not examined by me. Neck is supple. No JVD. I do not hear any carotid bruit. Heart exam reveals S1, S2 with a short systolic murmur over the left lower sternal border. Lungs reveal bilateral diminished air entry. Abdomen is soft, nontender. No organomegaly. Lower extremities reveal bilateral chronic moderate edema, diminished pulses. Central nervous system: Grossly no focal deficits. IMPRESSION: 1. Exacerbation of systolic and probably diastolic heart failure. 2. Hypertension. 3. Coronary artery disease with prior PCI. 4. Persistent atrial fibrillation with rate control. RECOMMENDATIONS: I am recommending we discontinue aspirin. Add Zaroxolyn 5 mg daily. Continue IV Lasix. Re-evaluate in the morning with a BMP and based on findings, will make further recommendations. Advised to have an echocardiogram as well to assess LV function. I discussed my thoughts in detail with the patient. There was also a question of cellulitis on the legs and Dr. Spears is going to see the patient in this regard. MMODL / IJN: [id number] /
[2022-06-07 13:46] LABS: Appearance,Urine Clear (Clear); Bilirubin,Urine Negative (Negative); Blood,Urine Negative (Negative); Color,Urine Yellow; Glucose,Urine (UA) 4+ (Negative); Ketones,Urine Negative (Negative); Leukocyte Esterase,Urine Negative (Negative); Nitrite,Urine Negative (Negative); Protein,Urine Negative (Negative); Specific Gravity,Urine 1.009 (1.001-1.035); Urobilinogen,Urine <2.0 mg/dL (<2.0)
[2022-06-07 16:28] LABS: Glucose,Whole Blood 198 mg/dL (70-110)
[2022-06-07] MEDS: FLUTICASONE 110 MCG INHALER INHALATION SCH (19:39)
[2022-06-07 20:10] LABS: Glucose,Whole Blood 193 mg/dL (70-110)
[2022-06-07] MEDS: ATORVASTATIN 40 MG TAB PO SCH (21:04)
[2022-06-08 06:07] LABS: Glucose,Whole Blood 137 mg/dL (70-110)
[2022-06-08] MEDS: LEVOTHYROXINE 50 MCG TAB PO SCH (06:21)
[2022-06-08] MEDS: INSULIN ASPART (NovoLOG) 100 UNIT/ML VIAL SQ SCH ×4 (06:21→20:31)
[2022-06-08] MEDS: NITROGLYCERIN OINT 1 INCH/GM PACKET TOPICAL SCH ×3 (06:22→17:08)
--- NOTE | 2022-06-08 06:45 | P.CONS ---
History of Present Illness - Reason for Consult Consult date: 06/07/22 Cellulitis Requesting physician: Redd Metzger - Chief Complaint Shortness of breath and leg swelling x few days - History of Present Illness Patient is a 71-year-old male with a past medical history significant for atrial fibrillation hypertension hyperlipidemia chronic noticeably swelling presenting to the hospital with more swelling to the lower legs especially the left leg symptom has been going on for a week or so. Denies any history of any trauma, patient has been complaining of course increasing swelling and redness of the left leg dull aching pain 4-5 out of 10 no radiation currently do not have any open wound or any drainage patient did have some chills denies high- grade fever on presentation to the hospital the patient was afebrile patient did have a white count of 11.5 with a left shift BUN and creatinine are mildly elevated as well as liver enzymes the patient also have a bruising to the right second toe not sure how it started did not have significant pain to the area or any drainage patient was started on clindamycin has been admitted to hospital infectious disease was consulted for further management of antibiotic therapy Review of Systems Positive point has been mentioned in the HPI rest of the systems are negative 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, CKD stage III, gout, back pain if stands too long, diver ticular disease, benign colon polyps, BPH History of Any Multi-Drug Resistant Organisms: MRSA Year Discovered:: 05/18/17 MDRO Source:: RIGHT LEG Past Surgical History: Heart Catheterization With Stent, Joint Replacement, Orthopedic Surgery, Tonsillectomy Additional Past Surgical History / Comment(s): 2013 PCI with 2 stents, infusaport R upper chest, 8 hand surgeries after injury in [place]-skin grafts/tendon repair-skin taken from L upper chest and bilateral ankle tendon donors, L total hip arthroplasty, colonoscopies/benign polyps. Past Anesthesia/Blood Transfusion Reactions: Previous Problems w/ Anesthesia Additional Past Anesthesia/Blood Transfusion Reaction / Comm: Difficulty waking with 2 surgeries performed while in the [employer] Date of Last Stent Placement:: 2013 Past Psychological History: No Psychological Hx Reported Additional Psychological History / Comment(s): Pt has clausterphobia. Pt resides with his spouse. He uses a walker to ambulate but this is becoming more difficult. Spouse states she feels they could use some home care assistance. She states he is not to go into a residential. 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 He drives. Smoking Status: Never smoker Past Alcohol Use History: Occasional Past Drug Use History: None Reported - Past Family History Mother Family Medical History: COPD, Diabetes Mellitus Additional Family Medical History / Comment(s): Mother of a [place] at the age of 61 yrs. She was a heavy smoker. Father History Unknown: Yes Family Medical History: Myocardial Infarction ([place]) Additional Family Medical History / Comment(s): Pt does not know father's medical history Medications and Allergies Home Medications Medication Instructions Recorded Confirmed Type Finasteride 5 mg PO DAILY 04/18/14 06/06/22 History Fluticasone Nasal [place] [Flonase 1 spray EA NOSTRIL BID 10/18/19 06/06/22 History Nasal [place]] Oxybutynin Chloride 10 mg PO DAILY 10/18/19 06/06/22 History Clotrimazole Cream [Lotrimin Cream] 1 applic TOPICAL BID PRN 01/13/21 06/06/22 History Nitroglycerin Sl Tabs [Nitrostat] 0.4 mg SL Q5M PRN 01/13/21 06/06/22 History allopurinoL [Zyloprim] 300 mg PO DAILY 01/13/21 06/06/22 History Famotidine [Pepcid] 20 mg PO Q12HR tab 01/18/21 06/06/22 Rx Albuterol Inhaler [Ventolin Hfa 2 puff INHALATION RT-Q6H PRN 06/06/22 06/06/22 History Inhaler] Apixaban [Eliquis] 2.5 mg PO BID 06/06/22 06/06/22 History Atorvastatin [Lipitor] 40 mg PO HS 06/06/22 06/06/22 History Beclomethasone Dip 80 Mcg/Puff 1 puff INHALATION RT-BID 06/06/22 06/06/22 History [Qvar 80 mcg] Dulaglutide [Trulicity] 0.75 mg SQ RODRIGUEZ 06/06/22 06/06/22 History Empagliflozin [Jardiance] 10 mg PO DAILY 06/06/22 06/06/22 History Ergocalciferol [Vitamin D2 (1250 1,250 mcg PO Q14D 06/06/22 06/06/22 History Mcg = 58833 Iu)] Folic Acid 1 mg PO DAILY 06/06/22 06/06/22 History Furosemide [Lasix] 40 mg PO BID 06/06/22 06/06/22 History Lacosamide [Vimpat] 100 mg PO BID 06/06/22 06/06/22 History Levothyroxine Sodium [Synthroid] 50 mcg PO DAILY 06/06/22 06/06/22 History Petrolatum, White [Aquaphor] 1 applic TOPICAL BID PRN 06/06/22 06/06/22 History Spironolactone 25 mg PO DAILY 06/06/22 06/06/22 History calcitrioL [Calcitriol] 0.25 mcg PO MOFR 06/06/22 06/06/22 History Allergies Allergy/AdvReac Type Severity Reaction Status Date / Time Penicillins Allergy Unknown Verified 01/13/21 11:36 Childhood/Patient went into a coma Physical Exam Vitals: Vital Signs Temp Pulse Pulse Resp BP BP Pulse Ox 06/07/22 03:45 98.4 F 72 18 117/73 96 06/06/22 23:10 97.9 F 85 19 113/70 99 06/06/22 21:25 98 F 71 18 116/75 99 06/06/22 21:09 72 16 102/70 100 06/06/22 18:39 64 18 107/74 96 06/06/22 17:39 18 06/06/22 17:28 98.0 F 60 18 98/72 97 Intake and Output 06/06/22 06/07/22 06/07/22 22:59 06:59 14:59 Intake Total 480 Output Total 875 Balance -395 Intake: Oral 480 Output: Urine 875 Other: Voiding Method Urinal Urinal # Voids 1 Weight 136.078 kg 163.5 kg GENERAL DESCRIPTION: Elderly male lying in bed, no distress. No tachypnea or accessory muscle of respiration use. HEENT: Shows Pallor , no scleral icterus. Oral mucous membrane is dry. No pharyngeal erythema or thrush NECK: Trachea central, no thyromegaly. LUNGS: Unlabored breathing. Decreased breath sound at the base. No wheeze or crackle. HEART: S1, S2, regular rate and rhythm. No loud murmur ABDOMEN: Soft, no tenderness , guarding or rigidity, no organomegaly EXTREMITIES: Diffuse swelling to bilateral lower extremity with some redness to the left leg SKIN: No rash, no masses palpable. NEUROLOGICAL: The patient is awake, alert, oriented x3, mood and affect normal. Results CBC & Chem 7: 06/10/22 07:00 06/10/22 07:00 Labs: Abnormal Lab Results - Last 24 Hours (Table) 06/06/22 06/06/22 06/06/22 Range/Units 17:47 17:47 17:47 WBC 11.5 H (3.8-10.6) k/uL RBC 4.16 L (4.30-5.90) m/uL MCV 100.4 H (80.0-100.0) fL RDW 15.8 H (11.5-15.5) % Plt Count (150-450) k/uL Neutrophils # 9.6 H (1.3-7.7) k/uL Lymphocytes # 0.8 L (1.0-4.8) k/uL PT 14.9 H (9.0-12.0) sec INR 1.4 H (<1.2) Sodium 134 L (137-145) mmol/L Chloride 95 L (98-107) mmol/L BUN 75 H (9-20) mg/dL Creatinine 1.93 H (0.66-1.25) mg/dL Glucose 216 H (74-99) mg/dL POC Glucose (mg/dL) (70-110) mg/dL Plasma Lactic Acid Walter (0.7-2.0) mmol/L Magnesium 2.4 H (1.6-2.3) mg/dL Total Bilirubin 3.0 H (0.2-1.3) mg/dL AST 127 H (17-59) U/L ALT 113 H (4-49) U/L Alkaline Phosphatase 142 H (38-126) U/L Troponin I (0.000-0.034) ng/mL HDL Cholesterol (40.00-60.00) mg/dL 06/06/22 06/06/22 06/06/22 Range/Units 17:47 17:47 21:05 WBC (3.8-10.6) k/uL RBC (4.30-5.90) m/uL MCV (80.0-100.0) fL RDW (11.5-15.5) % Plt Count (150-450) k/uL Neutrophils # (1.3-7.7) k/uL Lymphocytes # (1.0-4.8) k/uL PT (9.0-12.0) sec INR (<1.2) Sodium (137-145) mmol/L Chloride (98-107) mmol/L BUN (9-20) mg/dL Creatinine (0.66-1.25) mg/dL Glucose (74-99) mg/dL POC Glucose (mg/dL) (70-110) mg/dL Plasma Lactic Acid Walter 3.6 H* (0.7-2.0) mmol/L Magnesium (1.6-2.3) mg/dL Total Bilirubin (0.2-1.3) mg/dL AST (17-59) U/L ALT (4-49) U/L Alkaline Phosphatase (38-126) U/L Troponin I 0.055 H* 0.062 H* (0.000-0.034) ng/mL HDL Cholesterol (40.00-60.00) mg/dL 06/06/22 06/06/22 06/07/22 Range/Units 21:33 23:39 02:23 WBC (3.8-10.6) k/uL RBC (4.30-5.90) m/uL MCV (80.0-100.0) fL RDW (11.5-15.5) % Plt Count (150-450) k/uL Neutrophils # (1.3-7.7) k/uL Lymphocytes # (1.0-4.8) k/uL PT (9.0-12.0) sec INR (<1.2) Sodium (137-145) mmol/L Chloride (98-107) mmol/L BUN (9-20) mg/dL Creatinine (0.66-1.25) mg/dL Glucose (74-99) mg/dL POC Glucose (mg/dL) 181 H (70-110) mg/dL Plasma Lactic Acid Walter (0.7-2.0) mmol/L Magnesium (1.6-2.3) mg/dL Total Bilirubin (0.2-1.3) mg/dL AST (17-59) U/L ALT (4-49) U/L Alkaline Phosphatase (38-126) U/L Troponin I 0.066 H* (0.000-0.034) ng/mL HDL Cholesterol 23.90 L (40.00-60.00) mg/dL 06/07/22 06/07/22 06/07/22 Range/Units 02:23 06:03 09:42 WBC (3.8-10.6) k/uL RBC 3.98 L (4.30-5.90) m/uL MCV 100.8 H (80.0-100.0) fL RDW 16.3 H (11.5-15.5) % Plt Count 141 L (150-450) k/uL Neutrophils # (1.3-7.7) k/uL Lymphocytes # (1.0-4.8) k/uL PT (9.0-12.0) sec INR (<1.2) Sodium (137-145) mmol/L Chloride (98-107) mmol/L BUN (9-20) mg/dL Creatinine (0.66-1.25) mg/dL Glucose (74-99) mg/dL POC Glucose (mg/dL) 150 H (70-110) mg/dL Plasma Lactic Acid Walter (0.7-2.0) mmol/L Magnesium (1.6-2.3) mg/dL Total Bilirubin (0.2-1.3) mg/dL AST (17-59) U/L ALT (4-49) U/L Alkaline Phosphatase (38-126) U/L Troponin I 0.070 H* (0.000-0.034) ng/mL HDL Cholesterol (40.00-60.00) mg/dL 06/07/22 06/07/22 Range/Units 09:42 11:39 WBC (3.8-10.6) k/uL RBC (4.30-5.90) m/uL MCV (80.0-100.0) fL RDW (11.5-15.5) % Plt Count (150-450) k/uL Neutrophils # (1.3-7.7) k/uL Lymphocytes # (1.0-4.8) k/uL PT (9.0-12.0) sec INR (<1.2) Sodium 136 L (137-145) mmol/L Chloride (98-107) mmol/L BUN 73 H (9-20) mg/dL Creatinine 1.73 H (0.66-1.25) mg/dL Glucose 133 H (74-99) mg/dL POC Glucose (mg/dL) 128 H (70-110) mg/dL Plasma Lactic Acid Walter (0.7-2.0) mmol/L Magnesium (1.6-2.3) mg/dL Total Bilirubin 2.9 H (0.2-1.3) mg/dL AST 107 H (17-59) U/L ALT 119 H (4-49) U/L Alkaline Phosphatase 136 H (38-126) U/L Troponin I (0.000-0.034) ng/mL HDL Cholesterol (40.00-60.00) mg/dL Assessment and Plan (1) Bilateral lower leg cellulitis Current Visit: No Status: Acute Code(s): L03.116 - CELLULITIS OF LEFT LOWER LIMB; L03.115 - CELLULITIS OF RIGHT LOWER LIMB SNOMED Code(s): 428273384 Plan: 1patient presented hospital with increasing swelling lower extremity especially left leg with some erythema slight pain and warmth concerning for cellulitis with diffuse swelling redness and features of fluid overload likely representing streptococcal cellulitis. 2patient with a penicillin allergy that would limit the number of antibiotics safe to use. 3discontinue clindamycin. 4start the patient on cefazolin 2 g every 8 hours. 5Ace wrap to the leg to keep the swelling down. We will follow on clinical condition and cultures to further adjust medication if needed Thank you for this consultation will follow this patient along with you Time with Patient: Greater than 30
--- NOTE | 2022-06-08 07:26 | CA ---
Transthoracic Echo Report Name: Hamlet Welsh Age: 71 Gender: M : 1950 Exam Date: 06/07/2022 13:06 Exam Location: [facility] Ht (in): 73 Wt (lb): 360 Ordering Physician: Marcelo Bar MD ([id number]) Attending/Referring Phys: Cull Grader Liv August RDCS Procedure CPT: Indications: chf Cardiac Hx: Technical Quality: Good Contrast 1: Total Dose (mL): Contrast 2: Total Dose (mL): MEASUREMENTS (Male / Female) Normal Values 2D ECHO LV Diastolic Diameter PLAX 6.0 cm 4.2 - 5.9 / 3.9 - 5.3 cm LV Systolic Diameter PLAX 4.4 cm IVS Diastolic Thickness 1.1 cm 0.6 - 1.0 / 0.6 - 0.9 cm LVPW Diastolic Thickness 1.0 cm 0.6 - 1.0 / 0.6 - 0.9 cm LV Relative Wall Thickness 0.3 RV Internal Dim ED PLAX 4.2 cm LA Systolic Diameter LX 4.5 cm 3.0 - 4.0 / 2.7 - 3.8 cm LA Volume 111.5 cm??? 18 - 58 / 22 - 52 cm??? M-MODE Aortic Root Diameter MM 3.5 cm MV E Point Septal Separation 2.1 cm AV Cusp Separation MM 2.4 cm DOPPLER AV Peak Velocity 106.1 cm/s AV Peak Gradient 4.5 mmHg AI Peak Velocity 287.9 cm/s AI Peak Gradient 33.2 mmHg AI Pressure Half Time 492.1 ms MV Area PHT 3.2 cm??? MV Deceleration Time 256.0 ms TR Peak Velocity 330.3 cm/s TR Peak Gradient 43.6 mmHg Right Ventricular Systolic Press 47.6 mmHg FINDINGS Left Ventricle Left ventricular ejection fraction is estimated at 25-30%. Mild left ventricular dilatation. Borderline left ventricular hypertrophy. Right Ventricle Severe right ventricular dilatation. Moderate pulmonary hypertension. Right Atrium Normal right atrial size. Left Atrium Mildly increased left atrial diameter. Severely increased left atrial volume. Moderately increased left atrial area. No evidence for an atrial septal defect. Mitral Valve Mitral annular calcification. Moderate mitral regurgitation. Aortic Valve Focal thickening of the aortic valve cusps. Axyg-um-fisptowq aortic regurgitation. Tricuspid Valve Moderate tricuspid regurgitation. Tricuspid valve appears to be normal Pulmonic Valve Trace pulmonic regurgitation. Pericardium Normal pericardium. No pericardial effusion. Aorta Normal size aortic root and proximal ascending aorta. CONCLUSIONS 1. Dilated left ventricle with severe decrease in the systolic function 2. Moderate mitral and tricuspid regurgitation 3. Mild to moderate aortic regurgitation Previewed by: Dr. Vel Plata MD (Electronically Signed) Final Date: 08 June 2022 07:26
[2022-06-08 08:05] LABS: Calcium 8.6 mg/dL (8.4-10.2); Potassium 3.7 mmol/L (3.5-5.1)
[2022-06-08] MEDS: FLUTICASONE 110 MCG INHALER INHALATION SCH ×2 (08:11→19:34)
[2022-06-08] MEDS ORDERED: POTASSIUM CHLORIDE ER 20 MEQ TAB.ER PO STA (09:21)
[2022-06-08] MEDS: LACOSAMIDE 50 MG TABLET PO SCH ×2 (10:07→20:30)
[2022-06-08] MEDS: FUROSEMIDE 10 MG/ML 4 ML VIAL IV SCH ×2 (10:07→20:30)
[2022-06-08] MEDS: FAMOTIDINE 20 MG TAB PO SCH (10:08)
[2022-06-08] MEDS: APIXABAN 2.5 MG TABLET PO SCH ×2 (10:08→20:30)
[2022-06-08] MEDS: allopurinoL 300 MG TAB PO SCH (10:08)
[2022-06-08] MEDS: FOLIC ACID 1 MG TAB PO SCH (10:08)
[2022-06-08] MEDS: FINASTERIDE 5 MG TAB PO SCH (10:08)
[2022-06-08] MEDS: FLUTICASONE 50MCG/SPRAY NASAL 16GM EA NOSTRIL SCH ×2 (10:09→20:31)
[2022-06-08] MEDS: metOLazone 5 MG TAB PO SCH (10:11)
[2022-06-08] MEDS: NON FORMULARY DRUG (Empagliflozin [Jardiance] 10 MG Tablet) PO SCH (10:14)
--- NOTE | 2022-06-08 10:33 | P.CONS ---
History of Present Illness - Reason for Consult Consult date: 06/08/22 wound care - History of Present Illness Patient is a 71-year-old male with a past medical history significant for atrial fibrillation, hernia artery disease, peripheral vascular disease, congestive heart failure, type 2 diabetes neuropathy to bilateral legs subcutaneous B cell lymphoma chronic kidney disease stage III, hypertension hyperlipidemia chronic swelling being seen by wound care on 3 for a nonhea ling ulceration to the left great toe, right foot third digit eschar And redness to the left heel. Patient did have maggots in his left great toe abrasion. Left great toe has open ulceration under the nail. Bleeding was noted to the nail bed. The third digit of the right foot is unstageable with eschar. Eschar Is in place no peeling or lifting noted. Review Of Systems: Constitutional: No fever, no chills, no night sweats. No weight change. No weakness, fatigue or lethargy. No daytime sleepiness. Integumentary:reports wounds, no lesions. No rash or pruritus. No unusual bruising. No change in hair or nails. Physical exam: General Appearance: Alert, cooperative, no distress, appears stated age. Skin: See HPI all other Skin color, texture, tugor normal, no rashes or lesions. Neurologic: Alert oriented x3 Assessment: 1. Nonhealing ulceration with fatty layer exposure left great toe 2. Nonhealing ulceration with eschar Third digit right foot 3. Diabetic foot ulcer Plan: 1. Apply bacitracin to the left great toe daily. Leave eschar In place. Utilize foam heel protectors as needed Thank for the consultation any questions please contact the wound care center DNP note has been reviewed and discussed with Dr. Viveros and the impression and plan of care has been directed as dictated. 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, CKD stage III, gout, back pain if stands too long, divertic ular disease, benign colon polyps, BPH History of Any Multi-Drug Resistant Organisms: MRSA Year Discovered:: 05/18/17 MDRO Source:: RIGHT LEG Past Surgical History: Heart Catheterization With Stent, Joint Replacement, Orthopedic Surgery, Tonsillectomy Additional Past Surgical History / Comment(s): 2013 PCI with 2 stents, infusaport R upper chest, 8 hand surgeries after injury in [place]-skin grafts/tendon repair-skin taken from L upper chest and bilateral ankle tendon do nors, L total hip arthroplasty, colonoscopies/benign polyps. Past Anesthesia/Blood Transfusion Reactions: Previous Problems w/ Anesthesia Additional Past Anesthesia/Blood Transfusion Reaction / Comm: Difficulty waking with 2 surgeries performed while in the [employer] Date of Last Stent Placement:: 2013 Past Psychological History: No Psychological Hx Reported Additional Psychological History / Comment(s): Pt has clausterphobia. Pt resides with his spouse. He uses a walker to ambulate but this is becoming more difficult. Spouse states she feels they could use some home care assistance. She states he is not to go into a fpc. He was in the [employer] in 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 He drives. Smoking Status: Never smoker Past Alcohol Use History: Occasional Past Drug Use History: None Reported - Past Family History Mother Family Medical History: COPD, Diabetes Mellitus Additional Family Medical History / Comment(s): Mother of a [place] at the age of 61 yrs. She was a heavy smoker. Father History Unknown: Yes Family Medical History: Myocardial Infarction ([place]) Additional Family Medical History / Comment(s): Pt does not know father's medical history Medications and Allergies Home Medications Medication Instructions Recorded Confirmed Type Finasteride 5 mg PO DAILY 04/18/14 06/06/22 History Fluticasone Nasal [place] [Flonase 1 spray EA NOSTRIL BID 10/18/19 06/06/22 History Nasal [place]] Oxybutynin Chloride 10 mg PO DAILY 10/18/19 06/06/22 History Clotrimazole Cream [Lotrimin Cream] 1 applic TOPICAL BID PRN 01/13/21 06/06/22 History Nitroglycerin Sl Tabs [Nitrostat] 0.4 mg SL Q5M PRN 01/13/21 06/06/22 History allopurinoL [Zyloprim] 300 mg PO DAILY 01/13/21 06/06/22 History Famotidine [Pepcid] 20 mg PO Q12HR tab 01/18/21 06/06/22 Rx Albuterol Inhaler [Ventolin Hfa 2 puff INHALATION RT-Q6H PRN 06/06/22 06/06/22 History Inhaler] Apixaban [Eliquis] 2.5 mg PO BID 06/06/22 06/06/22 History Atorvastatin [Lipitor] 40 mg PO HS 06/06/22 06/06/22 History Beclomethasone Dip 80 Mcg/Puff 1 puff INHALATION RT-BID 06/06/22 06/06/22 History [Qvar 80 mcg] Dulaglutide [Trulicity] 0.75 mg SQ RODRIGUEZ 06/06/22 06/06/22 History Empagliflozin [Jardiance] 10 mg PO DAILY 06/06/22 06/06/22 History Ergocalciferol [Vitamin D2 (1250 1,250 mcg PO Q14D 06/06/22 06/06/22 History Mcg = 69480 Iu)] Folic Acid 1 mg PO DAILY 06/06/22 06/06/22 History Furosemide [Lasix] 40 mg PO BID 06/06/22 06/06/22 History Lacosamide [Vimpat] 100 mg PO BID 06/06/22 06/06/22 History Levothyroxine Sodium [Synthroid] 50 mcg PO DAILY 06/06/22 06/06/22 History Petrolatum, White [Aquaphor] 1 applic TOPICAL BID PRN 06/06/22 06/06/22 History Spironolactone 25 mg PO DAILY 06/06/22 06/06/22 History calcitrioL [Calcitriol] 0.25 mcg PO MOFR 06/06/22 06/06/22 History Allergies Allergy/AdvReac Type Severity Reaction Status Date / Time Penicillins Allergy Unknown Verified 01/13/21 11:36 Childhood/Patient went into a coma Physical Exam Vitals: Vital Signs Temp Pulse Resp BP Pulse Ox FiO2 06/08/22 03:50 97.4 F L 82 18 126/77 99 06/08/22 00:00 98.6 F 68 18 113/64 97 06/07/22 20:00 98.6 F 84 18 115/70 100 06/07/22 18:15 98 06/07/22 18:00 98.1 F 79 18 111/71 98 06/07/22 15:54 94 L 21 06/07/22 15:20 85 06/07/22 12:13 97.5 F L 85 18 121/76 100 Intake and Output 06/07/22 06/08/22 06/08/22 22:59 06:59 14:59 Output Total 125 1000 Balance -125 -1000 Output: Urine 1000 Stool 125 Other: Voiding Method Urinal Urinal Weight 133.5 kg Results CBC & Chem 7: 06/07/22 09:42 06/08/22 07:33 Labs: Abnormal Lab Results - Last 24 Hours (Table) 06/07/22 06/07/22 06/07/22 Range/Units 09:42 09:42 09:42 RBC 3.98 L (4.30-5.90) m/uL MCV 100.8 H (80.0-100.0) fL RDW 16.3 H (11.5-15.5) % Plt Count 141 L (150-450) k/uL Sodium 136 L (137-145) mmol/L BUN 73 H (9-20) mg/dL Creatinine 1.73 H (0.66-1.25) mg/dL Glucose 133 H (74-99) mg/dL POC Glucose (mg/dL) (70-110) mg/dL Total Bilirubin 2.9 H (0.2-1.3) mg/dL AST 107 H (17-59) U/L ALT 119 H (4-49) U/L Alkaline Phosphatase 136 H (38-126) U/L Vitamin B12 1008.0 H (200.0-944.0) pg/mL Urine Glucose (UA) (Negative) 06/07/22 06/07/22 06/07/22 Range/Units 11:39 11:55 16:26 RBC (4.30-5.90) m/uL MCV (80.0-100.0) fL RDW (11.5-15.5) % Plt Count (150-450) k/uL Sodium (137-145) mmol/L BUN (9-20) mg/dL Creatinine (0.66-1.25) mg/dL Glucose (74-99) mg/dL POC Glucose (mg/dL) 128 H 198 H (70-110) mg/dL Total Bilirubin (0.2-1.3) mg/dL AST (17-59) U/L ALT (4-49) U/L Alkaline Phosphatase (38-126) U/L Vitamin B12 (200.0-944.0) pg/mL Urine Glucose (UA) 4+ H (Negative) 06/07/22 06/08/22 06/08/22 Range/Units 20:05 06:05 07:33 RBC (4.30-5.90) m/uL MCV (80.0-100.0) fL RDW (11.5-15.5) % Plt Count (150-450) k/uL Sodium 136 L (137-145) mmol/L BUN 71 H (9-20) mg/dL Creatinine 1.94 H (0.66-1.25) mg/dL Glucose 134 H (74-99) mg/dL POC Glucose (mg/dL) 193 H 137 H (70-110) mg/dL Total Bilirubin (0.2-1.3) mg/dL AST (17-59) U/L ALT (4-49) U/L Alkaline Phosphatase (38-126) U/L Vitamin B12 (200.0-944.0) pg/mL Urine Glucose (UA) (Negative) Microbiology - Last 24 Hours (Table) 06/07/22 Unknown Gram Stain - Preliminary Toe - Right First Wound Culture - Preliminary Assessment and Plan (1) Non-pressure chronic ulcer of other part of left foot with fat layer exposed Current Visit: Yes Status: Acute Code(s): L97.522 - NON-PRS CHRONIC ULCER OTH PRT LEFT FOOT W FAT LAYER EXPOSED SNOMED Code(s): 747366775 (2) Non-pressure chronic ulcer of other part of right foot with fat layer exposed Current Visit: Yes Status: Acute Code(s): L97.512 - NON-PRS CHRONIC ULCER OTH PRT RIGHT FOOT W FAT LAYER EXPOSED SNOMED Code(s): 221807374 (3) Diabetic foot ulcer Current Visit: Yes Status: Acute Code(s): E11.621 - TYPE 2 DIABETES MELLITUS WITH FOOT ULCER; L97.509 - NON-PRESSURE CHRONIC ULCER OTH PRT UNSP FOOT W UNSP SEVERITY SNOMED Code(s): 347336008
[2022-06-08] MEDS ORDERED: POTASSIUM CHLORIDE ER 10 MEQ TAB.ER.PRT PO STA (11:24)
[2022-06-08 11:39] LABS: Glucose,Whole Blood 201 mg/dL (70-110)
[2022-06-08] MEDS: BACITRACIN OINT 1 EACH PACKET TOPICAL SCH (12:57)
--- NOTE | 2022-06-08 15:22 | P.PN ---
Subjective Progress Note Date: 06/08/22 This is a 71 year old male who presents with complaints of swollen legs with increased shortness of breath that has been increasing over the last few months. Patient also reports episode of chest tightness midsternal throughout the evening but denies "chest pain." No fever or chills, no cough. Reports urinary retention with weak stream. He does have enlarged prostate and is maintained on finasteride. He ran over his left great toe with his walker with injury to nail bed, he does have some purulent drainage which will be cultured. There is lower extremity cellulitis on the left and patient did have maggots in the wound. Infectious disease will be consulted. On admission chest X-ray shows mild pulmon danya vascular congestion[place] [address] and patient has been started on IV lasix 40 mg every 8 hours. Troponin elevation at 0.055, 0.062, 0.066, 0.070 which is more consistent with CHF exacerbation, cardiology has been consulted. Liver enzymes are also elevated, creatinine 1.93. Patient has medical history significant for atrial fibrillation anticoagulated with eliquis, asthma, heart failure, hyperlipidemia, hypertension, chronic PVD, diabetes, neuropathy, History of B cell lymphoma, chronic kidney disease. He follows with Dr Talley in the office, primary care provider Dr Hicks. Most recent echocardiogram in 2020 showing EF 50 to 55% with mild aortic regurg, mild mitral regurg, and mild tricuspid regurg. Patient is admitted to the hospital for CHF exacerbation, and cellulitis. He has been started on IV lasix, IV clindamycin emprically as he has allergy to penicillin and 2D echocardiogram has been ordered. 06/08/2022 Patient evaluated today sitting up in the chair. He reports breathing better has been able to ambulate into the restroom. Lower extremity edema has improved as well as erythema to the left lower extremity. He does have pedal edema on the left. Wound cultures are pending prelim showing gram negative bacilli. He continues on IV cefazolin with infectious disease consultation. Wound care has also evaluated the patient. IV Lasix has been decreased to Q12, negative 2.6 liters in the last 24 hours. Echocardiogram completed showing EF of 25 to 30%, dilated left ventricle, with moderate pulmonary hypertension, modeate mitral and tricuspid regurgitation and mild to moderate aortic regurgitation. He continues on 3L nasal cannula, no home oxygen, blood pressure 105/77, afebrile. Review of Systems Constitutional: Denied any fatigue denied any fever. Cardio vascular: denied any chest pain, palpitations Gastrointestinal: denied any nausea, vomiting, diarrhea Pulmonary: Reports shortness of breath with exertion, denies cough. Neurologic denied any new focal deficits All inpatient medications were reviewed and appropriate changes in these me dications as dictated in the interval history and assessment and plan. PHYSICAL EXAMINATION: GENERAL: The patient is alert and oriented x3, not in any acute distress. Well developed, well nourished. Obese, HEENT: Pupils are round and equally reacting to light. EOMI. No scleral icterus. No conjunctival pallor. Normocephalic, atraumatic. No pharyngeal erythema. No thyromegaly. CARDIOVASCULAR: S1 and S2 present. No murmurs, rubs, or gallops. PULMONARY: Lungs are diminished. ABDOMEN: Soft, nontender, nondistended, normoactive bowel sounds. No palpable organomegaly. MUSCULOSKELETAL: No joint swelling or deformity. EXTREMITIES: No cyanosis, clubbing. Bilateral lower extremity peripheral edema worse on the left. Left pedal edema NEUROLOGICAL: Gross neurological examination did not reveal any focal deficits. SKIN: No rashes. Erythema to left lower extremity. 3rd toe on right is blackened in color. Assessment and plan Assessment Acute Systolic heart failure Troponin leak Left lower extremity cellulitis with sepsis with great toe wound Luekocytosis secondary to above, resolved Acute on chronic renal injury most likely prerenal azotemia Chronic kidney disease stage 3 Hyponatremia hypervolemic Diabetes mellitus with hyperglycemia Elevated LFT's most likely from vascular congestion will monitor trends Chronic atrial fibrillation anticoagulated with eliquis Coronary artery disease status post stenting History of COPD / Asthma Hyperlipidemia Hypertension, currently normotensive Chronic peripheral vascular disease History B cell lymphoma underwent treatment in 2017 History of BPH Obesity GI Prophylaxis Pepcid DVT Prophylaxis Eliquis Plan Cardiology consultation 2D echocardiogram has been completed Patient continues on IV lasix with strict I & O Empiric antibiotic coverage with infectious disease consultation Wound cultures pending Repeat labs in AM Monitor LFT's PT/OT will be consulted The impression and plan of care has been dictated by Alisha Gardner, Nurse Practitioner as directed. Dr. Domenica MD I have performed a history and physical examination and medical decision making of this patient, discussed the same with the dictator, and agree with the dictators assessment and plan as written, documented as a scribe. Based on total visit time, I have performed more than 50% of this visit. Objective - Vital Signs Vital signs: Vital Signs Temp 97.4 F L 06/08/22 03:50 Pulse 72 06/08/22 12:00 Resp 16 06/08/22 12:00 BP 105/77 06/08/22 12:00 Pulse Ox 100 06/08/22 08:00 FiO2 21 06/07/22 15:54 Intake & Output 06/07/22 06/08/22 06/08/22 18:59 06:59 18:59 Intake Total 118 Output Total 1250 1000 200 Balance -1250 -1000 -82 Weight 163.5 kg 133.5 kg Intake: Oral 118 Output: Urine 1125 1000 200 Stool 125 Other: Voiding Method Urinal Urinal Urinal - Labs CBC & Chem 7: 06/07/22 09:42 06/08/22 07:33 Labs: Abnormal Lab Results - Last 24 Hours (Table) 06/07/22 06/07/22 06/07/22 Range/Units 09:42 16:26 20:05 Sodium (137-145) mmol/L BUN (9-20) mg/dL Creatinine (0.66-1.25) mg/dL Glucose (74-99) mg/dL POC Glucose (mg/dL) 198 H 193 H (70-110) mg/dL Vitamin B12 1008.0 H (200.0-944.0) pg/mL 06/08/22 06/08/22 06/08/22 Range/Units 06:05 07:33 11:37 Sodium 136 L (137-145) mmol/L BUN 71 H (9-20) mg/dL Creatinine 1.94 H (0.66-1.25) mg/dL Glucose 134 H (74-99) mg/dL POC Glucose (mg/dL) 137 H 201 H (70-110) mg/dL Vitamin B12 (200.0-944.0) pg/mL Microbiology - Last 24 Hours (Table) 06/07/22 Unknown Gram Stain - Preliminary Toe - Right First Wound Culture - Preliminary Assessment and Plan Time with Patient: Less than 30
[2022-06-08 16:43] LABS: Glucose,Whole Blood 139 mg/dL (70-110)
[2022-06-08 19:36] LABS: Glucose,Whole Blood 202 mg/dL (70-110)
--- NOTE | 2022-06-08 20:00 | PN ---
PROGRESS NOTE The patient's echo revealed significant reduction in ejection fraction of 25%. I explained this to the patient and his heart failure is probably related to an LV function deterioration. However, creatinine has gone up. With diuresis he has lost weight. He feels better. His breathing is easier. I am decreasing the Lasix to q.12 hours 40 mg and reduce the Zaroxolyn to 2.5 mg daily. Physical exam revealed JVD less apparent. S1-S2 heard normally. Short systolic murmur. Irregular rhythm. Lungs reveal diminished air entry. Abdomen is soft, nontender. Lower extremity edema has improved. IMPRESSION: 1. Cardiomyopathy with ejection fraction of 20-25% with previous PCI. 2. Atrial fibrillation chronic with decent rate control. 3. History of lower extremity edema with some cellulitis on antibiotics. RECOMMENDATIONS: Decrease the Lasix and diuretics and continue to follow. Prognosis remains guarded. Defer cardiac cath given the fact his creatinine is up to 1.9. MMODL / IJN: [id number] /
[2022-06-08] MEDS: ATORVASTATIN 40 MG TAB PO SCH (20:30)
[2022-06-09] MEDS: NITROGLYCERIN OINT 1 INCH/GM PACKET TOPICAL SCH ×5 (00:06→23:37)
--- NOTE | 2022-06-09 00:15 | P.PN ---
Subjective Progress Note Date: 06/08/22 Principal diagnosis: Bilateral lower extremity cellulitis Patient is a 71-year-old male presented to hospital with weakness and increasing shortness of breath increasing swelling redness to lower extremity, patient had been diagnosed with lower extremity cellulitis. On today's evaluation that is 06/08/2022, the patient denies having any fever or chills; complaining of shortness of breath on minimal exertion denies chest pain or any worsening cough no abdominal swelling to the leg redness has slightly decreased Objective - Vital Signs Vital signs: Vital Signs Temp 97.4 F L 06/08/22 03:50 Pulse 74 06/08/22 08:00 Resp 16 06/08/22 08:00 BP 132/77 06/08/22 08:00 Pulse Ox 100 06/08/22 08:00 FiO2 21 06/07/22 15:54 Intake & Output 06/07/22 06/08/22 06/08/22 18:59 06:59 18:59 Intake Total 118 Output Total 1250 1000 200 Balance -1250 -1000 -82 Weight 163.5 kg 133.5 kg Intake: Oral 118 Output: Urine 1125 1000 200 Stool 125 Other: Voiding Method Urinal Urinal Urinal - Exam GENERAL DESCRIPTION: An elderly male lying in bed in no distress RESPIRATORY SYSTEM: Unlabored breathing , decreased breath sounds at bases HEART: S1 S2 regular rate and rhythm , ABDOMEN: Soft , no tenderness EXTREMITIES: Diffuse swelling bilateral lower extremity minimal redness no drainage - Labs CBC & Chem 7: 06/07/22 09:42 06/08/22 07:33 Labs: Abnormal Lab Results - Last 24 Hours (Table) 06/07/22 06/07/22 06/07/22 Range/Units 09:42 11:55 16:26 Sodium (137-145) mmol/L BUN (9-20) mg/dL Creatinine (0.66-1.25) mg/dL Glucose (74-99) mg/dL POC Glucose (mg/dL) 198 H (70-110) mg/dL Vitamin B12 1008.0 H (200.0-944.0) pg/mL Urine Glucose (UA) 4+ H (Negative) 06/07/22 06/08/22 06/08/22 Range/Units 20:05 06:05 07:33 Sodium 136 L (137-145) mmol/L BUN 71 H (9-20) mg/dL Creatinine 1.94 H (0.66-1.25) mg/dL Glucose 134 H (74-99) mg/dL POC Glucose (mg/dL) 193 H 137 H (70-110) mg/dL Vitamin B12 (200.0-944.0) pg/mL Urine Glucose (UA) (Negative) 06/08/22 Range/Units 11:37 Sodium (137-145) mmol/L BUN (9-20) mg/dL Creatinine (0.66-1.25) mg/dL Glucose (74-99) mg/dL POC Glucose (mg/dL) 201 H (70-110) mg/dL Vitamin B12 (200.0-944.0) pg/mL Urine Glucose (UA) (Negative) Microbiology - Last 24 Hours (Table) 06/07/22 Unknown Gram Stain - Preliminary Toe - Right First Wound Culture - Preliminary Assessment and Plan (1) Bilateral lower leg cellulitis Current Visit: No Status: Acute Code(s): L03.116 - CELLULITIS OF LEFT LOWER LIMB; L03.115 - CELLULITIS OF RIGHT LOWER LIMB SNOMED Code(s): 151191704 Plan: 1patient presented hospital with increasing swelling lower extremity especially left leg with some erythema slight pain and warmth concerning for cellulitis with diffuse swelling redness and features of fluid overload likely representing streptococcal cellulitis. 2patient with a penicillin allergy that would limit the number of antibiotics safe to use. 3patient will continue with cefazolin 2 g every 8 hours. 4Ace wrap to the leg to keep the swelling down. Time with Patient: Less than 30
[2022-06-09 05:51] LABS: Glucose,Whole Blood 135 mg/dL (70-110)
[2022-06-09] MEDS: LEVOTHYROXINE 50 MCG TAB PO SCH (06:32)
[2022-06-09] MEDS: INSULIN ASPART (NovoLOG) 100 UNIT/ML VIAL SQ SCH ×4 (06:32→21:22)
[2022-06-09 08:33] LABS: Albumin 3.2 g/dL (3.5-5.0); Calcium 8.4 mg/dL (8.4-10.2); Total Bilirubin 2.2 mg/dL (0.2-1.3); Total Protein 6.1 g/dL (6.3-8.2)
[2022-06-09] MEDS: FUROSEMIDE 10 MG/ML 4 ML VIAL IV SCH (08:38)
[2022-06-09] MEDS: FOLIC ACID 1 MG TAB PO SCH (08:39)
[2022-06-09] MEDS: APIXABAN 2.5 MG TABLET PO SCH ×2 (08:39→21:22)
[2022-06-09] MEDS: BACITRACIN OINT 1 EACH PACKET TOPICAL SCH (08:39)
[2022-06-09] MEDS: metOLazone 5 MG TAB PO SCH (08:39)
[2022-06-09] MEDS: allopurinoL 300 MG TAB PO SCH (08:39)
[2022-06-09] MEDS: FINASTERIDE 5 MG TAB PO SCH (08:39)
[2022-06-09] MEDS: LACOSAMIDE 50 MG TABLET PO SCH ×2 (08:39→21:22)
[2022-06-09] MEDS ORDERED: Potassium Replacement Protocol 1 EACH MISC MISCELLANE PRN (09:23)
[2022-06-09] MEDS ORDERED: POTASSIUM CHLORIDE ER 20 MEQ TAB.ER PO ONE (10:00)
[2022-06-09 11:45] LABS: Glucose,Whole Blood 169 mg/dL (70-110)
[2022-06-09] MEDS: FLUTICASONE 110 MCG INHALER INHALATION SCH ×2 (11:49→20:47)
[2022-06-09] MEDS: NON FORMULARY DRUG (Empagliflozin [Jardiance] 10 MG Tablet) PO SCH (12:14)
[2022-06-09] MEDS: POTASSIUM CHLORIDE ER 20 MEQ TAB.ER PO SCH ×2 (12:20→12:21)
[2022-06-09] MEDS: FLUTICASONE 50MCG/SPRAY NASAL 16GM EA NOSTRIL SCH ×2 (12:21→21:23)
[2022-06-09] MEDS: FAMOTIDINE 20 MG TAB PO SCH (12:22)
[2022-06-09] MEDS ORDERED: POTASSIUM CHLORIDE ER 20 MEQ TAB.ER PO STA (13:29)
--- NOTE | 2022-06-09 13:32 | P.PN ---
Subjective Progress Note Date: 06/09/22 This is a 71 year old male who presents with complaints of swollen legs with increased shortness of breath that has been increasing over the last few months. Patient also reports episode of chest tightness midsternal throughout the evening but denies "chest pain." No fever or chills, no cough. Reports urinary retention with weak stream. He does have enlarged prostate and is maintained on finasteride. He ran over his left great toe with his walker with injury to nail bed, he does have some purulent drainage which will be cultured. There is lower extremity cellulitis on the left and patient did have maggots in the wound. Infectious disease will be consulted. On admission chest X-ray shows mild pulmon danya vascular congestion[place] [address] and patient has been started on IV lasix 40 mg every 8 hours. Troponin elevation at 0.055, 0.062, 0.066, 0.070 which is more consistent with CHF exacerbation, cardiology has been consulted. Liver enzymes are also elevated, creatinine 1.93. Patient has medical history significant for atrial fibrillation anticoagulated with eliquis, asthma, heart failure, hyperlipidemia, hypertension, chronic PVD, diabetes, neuropathy, History of B cell lymphoma, chronic kidney disease. He follows with Dr Talley in the office, primary care provider Dr Hicks. Most recent echocardiogram in 2020 showing EF 50 to 55% with mild aortic regurg, mild mitral regurg, and mild tricuspid regurg. Patient is admitted to the hospital for CHF exacerbation, and cellulitis. He has been started on IV lasix, IV clindamycin emprically as he has allergy to penicillin and 2D echocardiogram has been ordered. 06/08/2022 Patient evaluated today sitting up in the chair. He reports breathing better has been able to ambulate into the restroom. Lower extremity edema has improved as well as erythema to the left lower extremity. He does have pedal edema on the left. Wound cultures are pending prelim showing gram negative bacilli. He continues on IV cefazolin with infectious disease consultation. Wound care has also evaluated the patient. IV Lasix has been decreased to Q12, negative 2.6 liters in the last 24 hours. Echocardiogram completed showing EF of 25 to 30%, dilated left ventricle, with moderate pulmonary hypertension, modeate mitral and tricuspid regurgitation and mild to moderate aortic regurgitation. He continues on 3L nasal cannula, no home oxygen, blood pressure 105/77, afebrile. 06/09/2022 Patient evaluated today resting in bed. at the bedside and is updated on hospital course. Lower extremity edema has improved he is down overall about 12 lbs although weight charting seems inaccurate. He does sill have shortness of breath when ambulating, he is hoping to increase activity. He may need subacute rehab on discharge. He is continued on IV lasix which has been increased to Q8 hour. Creatinine today is 1.7 and we will consult nephrology. Patient sees Dr Rinaldi outpatient.. We will also stop metolazone for now. Infectious disease has okay patient for discharge on keflex when he is stable otherwise. Patient received 60 meq of potassium we will given an additional 40meq today. He is afebrile, heart rate 70s, blood pressure 112/69, 97% room air. Labs reviewed today showing sodium 133, potassium 3.0, repeat 3.3., BUN 63, creatinine 1.74, liver enzymes have improved. Blood glucose 160s. Review of Systems Constitutional: Denied any fatigue denied any fever. Cardio vascular: denied any chest pain, palpitations Gastrointestinal: denied any nausea, vomiting, diarrhea Pulmonary: Reports shortness of breath with exertion, denies cough. Neurologic denied any new focal deficits All inpatient medications were reviewed and appropriate changes in these medications as dictated in the interval history and assessment and plan. PHYSICAL EXAMINATION: GENERAL: The patient is alert and oriented x3, not in any acute distress. Well developed, well nourished. Obese, HEENT: Pupils are round and equally reacting to light. EOMI. No scleral icterus. No conjunctival pallor. Normocephalic, atraumatic. No pharyngeal erythema. No thyromegaly. CARDIOVASCULAR: S1 and S2 present. No murmurs, rubs, or gallops. PULMONARY: Lungs are diminished. ABDOMEN: Soft, nontender, nondistended, normoactive bowel sounds. No palpable organomegaly. MUSCULOSKELETAL: No joint swelling or deformity. EXTREMITIES: No cyanosis, clubbing. Bilateral lower extremity peripheral edema, left has improved. Left pedal edema NEUROLOGICAL: Gross neurological examination did not reveal any focal deficits. SKIN: No rashes. Erythema to left lower extremity. 3rd toe on right is blackened in color. Assessment and plan Assessment Acute Systolic heart failure Troponin leak Left lower extremity cellulitis with sepsis with great toe wound Luekocytosis secondary to above, resolved Acute on chronic renal injury most likely prerenal azotemia Chronic kidney disease stage 3 Hyponatremia hypervolemic Hypokalemia secondary to diuresis Diabetes mellitus with hyperglycemia Elevated LFT's most likely from vascular congestion will monitor trends Chronic atrial fibrillation anticoagulated with eliquis Coronary artery disease status post stenting History of COPD / Asthma Hyperlipidemia Hypertension, currently normotensive Chronic peripheral vascular disease History B cell lymphoma underwent treatment in 2017 History of BPH Obesity GI Prophylaxis Pepcid DVT Prophylaxis Eliquis Plan Cardiology consultation Nephrology has been consulted 2D echocardiogram has been completed Patient continues on IV lasix with strict I & O ZA wrap left lower extremity from foot. Empiric antibiotic coverage with infectious disease consultation Wound cultures pending Repeat labs in AM Monitor LFT's PT/OT will be consulted possible subacute rehab on discharge vs. home with home care. The impression and plan of care has been dictated by Alisha Gardner, Nurse Practitioner as directed. Dr. Domenica MD I have performed a history and physical examination and medical decision making of this patient, discussed the same with the dictator, and agree with the dictators assessment and plan as written, documented as a scribe. Based on total visit time, I have performed more than 50% of this visit. Objective - Vital Signs Vital signs: Vital Signs Temp 98.0 F 06/09/22 08:11 Pulse 69 06/09/22 12:00 Resp 16 06/09/22 12:00 BP 112/69 06/09/22 12:00 Pulse Ox 97 06/09/22 12:00 FiO2 21 06/07/22 15:54 Intake & Output 06/08/22 06/09/22 06/09/22 18:59 06:59 18:59 Intake Total 478 Output Total 1050 2600 125 Balance -572 -2600 -125 Weight 142.5 kg Intake: Oral 478 Output: Urine 1050 2600 Stool 125 Other: Voiding Method Urinal Urinal Urinal - Labs CBC & Chem 7: 06/07/22 09:42 06/09/22 11:56 Labs: Abnormal Lab Results - Last 24 Hours (Table) 06/08/22 06/08/22 06/09/22 Range/Units 16:37 19:35 05:50 Sodium (137-145) mmol/L Potassium (3.5-5.1) mmol/L Chloride (98-107) mmol/L BUN (9-20) mg/dL Creatinine (0.66-1.25) mg/dL Glucose (74-99) mg/dL POC Glucose (mg/dL) 139 H 202 H 135 H (70-110) mg/dL Total Bilirubin (0.2-1.3) mg/dL AST (17-59) U/L ALT (4-49) U/L Alkaline Phosphatase (38-126) U/L Total Protein (6.3-8.2) g/dL Albumin (3.5-5.0) g/dL 06/09/22 06/09/22 06/09/22 Range/Units 07:49 11:44 11:56 Sodium 133 L (137-145) mmol/L Potassium 3.0 L 3.3 L (3.5-5.1) mmol/L Chloride 95 L (98-107) mmol/L BUN 63 H (9-20) mg/dL Creatinine 1.74 H (0.66-1.25) mg/dL Glucose 129 H (74-99) mg/dL POC Glucose (mg/dL) 169 H (70-110) mg/dL Total Bilirubin 2.2 H (0.2-1.3) mg/dL AST 64 H (17-59) U/L ALT 60 H (4-49) U/L Alkaline Phosphatase 130 H (38-126) U/L Total Protein 6.1 L (6.3-8.2) g/dL Albumin 3.2 L (3.5-5.0) g/dL Assessment and Plan Time with Patient: Less than 30
[2022-06-09 16:35] LABS: Glucose,Whole Blood 181 mg/dL (70-110)
[2022-06-09] MEDS: FUROSEMIDE 10 MG/ML 10 ML VIAL IV SCH ×2 (17:17→23:37)
--- NOTE | 2022-06-09 18:24 | PN ---
PROGRESS NOTE Hamlet Welsh has a history of atrial fibrillation, LV dysfunction that is significant, and his ejection fraction is 25%. I switched him to IV push Lasix today. He feels somewhat better. Breathing is easier. Edema is less, but the weight is not accurately checked. Vital signs are stable. JVD is evident. S1, S2 with irregular rhythm, short systolic murmur. Lungs reveal diminished air entry. Abdomen and lower extremity exam unchanged. Plan is to continue current medical regimen. His creatinine is 1.73 today. We will continue current medications increase activity and hopefully he can be discharged to a rehab facility. Based on how he does, we will make further recommendations. Prognosis remains guarded. We will optimize medical therapy. Consider cardiac catheterization if the creatinine is stable, but patient does have diabetes with CKD. Then will make further recommendations. Explained to the patient and daughter that his systolic function is significantly impaired. HARVEY / ROSAURA: [id number] /
[2022-06-09 19:40] LABS: Glucose,Whole Blood 205 mg/dL (70-110)
[2022-06-09] MEDS: ATORVASTATIN 40 MG TAB PO SCH (21:22)
[2022-06-10 06:04] LABS: Glucose,Whole Blood 149 mg/dL (70-110)
[2022-06-10] MEDS: NITROGLYCERIN OINT 1 INCH/GM PACKET TOPICAL SCH ×4 (06:48→23:24)
[2022-06-10] MEDS: LEVOTHYROXINE 50 MCG TAB PO SCH (06:48)
[2022-06-10] MEDS: INSULIN ASPART (NovoLOG) 100 UNIT/ML VIAL SQ SCH ×4 (06:48→20:31)
[2022-06-10 07:21] LABS: Basophils % (A) 0 %; Eosinophils # (A) 0.1 k/uL (0-0.7); Eosinophils % (A) 2 %; HCT 39.9 % (39.0-53.0); HGB 12.5 gm/dL (13.0-17.5); Hypochromasia Moderate; Lymphocytes # (A) 1.5 k/uL (1.0-4.8); Lymphocytes % (A) 19 %; MCH 31.1 pg (25.0-35.0); MCHC 31.4 g/dL (31.0-37.0); MCV 99.1 fL (80.0-100.0); Macrocytosis Slight; Mean Platelet Volume 9.7; Monocytes # (A) 0.7 k/uL (0-1.0); Monocytes % (A) 9 %; Neutrophils # (A) 5.3 k/uL (1.3-7.7); Neutrophils % (A) 68 %; Platelet Count 142 k/uL (150-450); Poikilocytosis Slight; RBC 4.03 m/uL (4.30-5.90); RDW 15.7 % (11.5-15.5); WBC 7.7 k/uL (3.8-10.6)
[2022-06-10 07:44] LABS: Albumin 3.4 g/dL (3.5-5.0); Calcium 8.6 mg/dL (8.4-10.2); Magnesium 2.2 mg/dL (1.6-2.3); Potassium 3.8 mmol/L (3.5-5.1); Total Protein 6.5 g/dL (6.3-8.2)
[2022-06-10] MEDS: NON FORMULARY DRUG (Empagliflozin [Jardiance] 10 MG Tablet) PO SCH (07:52)
[2022-06-10] MEDS: FLUTICASONE 110 MCG INHALER INHALATION SCH ×2 (07:54→19:34)
[2022-06-10] MEDS: FUROSEMIDE 10 MG/ML 10 ML VIAL IV SCH (08:00)
[2022-06-10] MEDS: FLUTICASONE 50MCG/SPRAY NASAL 16GM EA NOSTRIL SCH ×2 (08:00→20:31)
[2022-06-10] MEDS: allopurinoL 300 MG TAB PO SCH (08:01)
[2022-06-10] MEDS: POTASSIUM CHLORIDE ER 20 MEQ TAB.ER PO SCH (08:01)
[2022-06-10] MEDS: LACOSAMIDE 50 MG TABLET PO SCH ×2 (08:01→20:31)
[2022-06-10] MEDS: APIXABAN 2.5 MG TABLET PO SCH ×2 (08:01→20:30)
[2022-06-10] MEDS: FOLIC ACID 1 MG TAB PO SCH (08:01)
[2022-06-10] MEDS: FAMOTIDINE 20 MG TAB PO SCH (08:01)
[2022-06-10] MEDS: BACITRACIN OINT 1 EACH PACKET TOPICAL SCH (08:01)
[2022-06-10] MEDS: FINASTERIDE 5 MG TAB PO SCH (08:01)
--- NOTE | 2022-06-10 10:14 | P.NPCON ---
History of Present Illness - Reason for Consult acute renal failure - History of Present Illness Patient is a 72-year-old male with history of chronic kidney disease NKF stage III B with baseline creatinine around 1.4-1.6 mg/dL. Etiology is nephrosclerosis. Patient is admitted to the hospital with increased lower extremity swelling and shortness of breath. Patient did have some chest discomfort as well. No history of fever chills nausea vomiting or abdominal pain Patient is currently being diuresed. He is maintained on IV Lasix. He has had good urine output. Creatinine was 1.9 on admission and it is down to 1.7 today. Lasix is at 60 mg IV every 8 hours. 24 hour urine output 2.9 L. Systolic blood pressure ranging from 101-130 mmHg. Review of Systems As per HPI other systems negative 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, CKD stage III, gout, back pain if stands too long, diverti cular disease, benign colon polyps, BPH History of Any Multi-Drug Resistant Organisms: MRSA Date of last positivie culture/infection: 05/18/17 MDRO Source:: RIGHT LEG Past Surgical History: Heart Catheterization With Stent, Joint Replacement, Orthopedic Surgery, Tonsillectomy Additional Past Surgical History / Comment(s): 2013 PCI with 2 stents, infusaport R upper chest, 8 hand surgeries after injury in [place]-skin grafts/tendon repair-skin taken from L upper chest and bilateral ankle tendon donors, L total hip arthroplasty, colonoscopies/benign polyps. Past Anesthesia/Blood Transfusion Reactions: Previous Problems w/ Anesthesia Additional Past Anesthesia/Blood Transfusion Reaction / Comment(s): Difficulty waking with 2 surgeries performed while in the [employer] Date of Last Stent Placement:: 2013 Past Psychological History: No Psychological Hx Reported Additional Psychological History / Comment(s): Pt has clausterphobia. Pt resides with his spouse. He uses a walker to ambulate but this is becoming more difficult. Spouse states she feels they could use some home care assistance. She states he is not to go into a half-way. 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 He drives. Smoking Status: Never smoker Past Alcohol Use History: Occasional Past Drug Use History: None Reported - Past Family History Mother Family Medical History: COPD, Diabetes Mellitus Additional Family Medical History / Comment(s): Mother of a LA at the age of 61 yrs. She was a heavy smoker. Father History Unknown: Yes Family Medical History: Myocardial Infarction (LA) Additional Family Medical History / Comment(s): Pt does not know father's medical history Medications and Allergies Home Medications Medication Instructions Recorded Confirmed Type Finasteride 5 mg PO DAILY 04/18/14 06/06/22 History Fluticasone Nasal [place] [Flonase 1 spray EA NOSTRIL BID 10/18/19 06/06/22 History Nasal [place]] Oxybutynin Chloride 10 mg PO DAILY 10/18/19 06/06/22 History Clotrimazole Cream [Lotrimin Cream] 1 applic TOPICAL BID PRN 01/13/21 06/06/22 History Nitroglycerin Sl Tabs [Nitrostat] 0.4 mg SL Q5M PRN 01/13/21 06/06/22 History allopurinoL [Zyloprim] 300 mg PO DAILY 01/13/21 06/06/22 History Famotidine [Pepcid] 20 mg PO Q12HR tab 01/18/21 06/06/22 Rx Albuterol Inhaler [Ventolin Hfa 2 puff INHALATION RT-Q6H PRN 06/06/22 06/06/22 History Inhaler] Apixaban [Eliquis] 2.5 mg PO BID 06/06/22 06/06/22 History Atorvastatin [Lipitor] 40 mg PO HS 06/06/22 06/06/22 History Beclomethasone Dip 80 Mcg/Puff 1 puff INHALATION RT-BID 06/06/22 06/06/22 History [Qvar 80 mcg] Dulaglutide [Trulicity] 0.75 mg SQ RODRIGUEZ 06/06/22 06/06/22 History Empagliflozin [Jardiance] 10 mg PO DAILY 06/06/22 06/06/22 History Ergocalciferol [Vitamin D2 (1250 1,250 mcg PO Q14D 06/06/22 06/06/22 History Mcg = 28436 Iu)] Folic Acid 1 mg PO DAILY 06/06/22 06/06/22 History Furosemide [Lasix] 40 mg PO BID 06/06/22 06/06/22 History Lacosamide [Vimpat] 100 mg PO BID 06/06/22 06/06/22 History Levothyroxine Sodium [Synthroid] 50 mcg PO DAILY 06/06/22 06/06/22 History Petrolatum, White [Aquaphor] 1 applic TOPICAL BID PRN 06/06/22 06/06/22 History Spironolactone 25 mg PO DAILY 06/06/22 06/06/22 History calcitrioL [Calcitriol] 0.25 mcg PO MOFR 06/06/22 06/06/22 History Allergies Allergy/AdvReac Type Severity Reaction Status Date / Time Penicillins Allergy Unknown Verified 01/13/21 11:36 Childhood/Patient went into a coma Physical Exam Vitals: Vital Signs Temp Pulse Resp BP Pulse Ox 06/10/22 07:58 97.6 F 76 18 104/58 95 06/10/22 03:15 97.4 F L 74 20 132/75 95 06/09/22 23:32 70 18 138/70 97 06/09/22 20:50 97.5 F L 86 20 104/64 96 06/09/22 16:00 90 16 107/61 100 06/09/22 12:00 69 16 112/69 97 Intake and Output 06/09/22 06/10/22 06/10/22 22:59 06:59 14:59 Intake Total 240 Output Total 550 1175 Balance -550 -1175 240 Intake: Oral 240 Output: Urine 550 1175 Other: Voiding Method Urinal Urinal Urinal Patient is awake, comfortable, not in any acute distress Examination of the heart S1 and S2 Examination of the lungs bilateral breath sounds are heard Abdomen is soft nontender Examination lower extremity shows bilateral extremities to be wrapped with chronic skin changes chronic edema noted bilaterally [employer]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 Acute kidney injury cardiorenal currently improved slightly. Patient is nonoliguric. UA is benign 2. Chronic kidney disease secondary to nephrosclerosis NKF stage IIIB with baseline creatinine around 1.4-1.6 mg/dL 3. Volume overload currently being diuresed 4. Cardiomyopathy with ejection fraction 25-30% 5. Acute on chronic systolic CHF 6. CK D mineral bone disorder maintained on Rocaltrol, calcium 8.6 7. Hypokalemia associated with diuresis status post replacement Plan: May continue current dose of IV Lasix Monitor blood pressure and electrolytes Avoid nephrotoxic agents Repeat labs in a.m. Salt and fluid restriction. Thank you for the consultation. We'll continue to follow the patient with you during his hospitalization
[2022-06-10 11:54] LABS: Glucose,Whole Blood 215 mg/dL (70-110)
[2022-06-10] MEDS ORDERED: FUROSEMIDE 10 MG/ML 4 ML VIAL IV STA (12:23)
[2022-06-10] MEDS ORDERED: POTASSIUM CHLORIDE ER 20 MEQ TAB.ER PO STA (12:24)
[2022-06-10] MEDS: FUROSEMIDE 100 MG in SODIUM CHLORIDE 0.9% 90 ML IV SCH ×2 (12:52→20:32)
--- NOTE | 2022-06-10 16:30 | P.PN ---
Subjective Progress Note Date: 06/09/22 Principal diagnosis: Bilateral lower extremity cellulitis Patient is a 71-year-old male presented to hospital with weakness and increasing shortness of breath increasing swelling redness to lower extremity, patient had been diagnosed with lower extremity cellulitis. On today's evaluation that is 06/09/2022, the patient remains to be afebrile, patient is still complaining of shortness of breath on minimal exertion , the patient denies chest pain or any worsening cough no abdominal swelling to the leg redness has slightly decreased Objective - Vital Signs Vital signs: Vital Signs Temp 98.0 F 06/09/22 08:11 Pulse 70 06/09/22 08:11 Resp 16 06/09/22 08:11 BP 101/53 06/09/22 08:11 Pulse Ox 96 06/09/22 08:11 FiO2 21 06/07/22 15:54 Intake & Output 06/08/22 06/09/22 06/09/22 18:59 06:59 18:59 Intake Total 478 Output Total 1050 2600 125 Balance -572 -2600 -125 Weight 142.5 kg Intake: Oral 478 Output: Urine 1050 2600 Stool 125 Other: Voiding Method Urinal Urinal Urinal - Exam GENERAL DESCRIPTION: An elderly male lying in bed in no distress RESPIRATORY SYSTEM: Unlabored breathing , decreased breath sounds at bases HEART: S1 S2 regular rate and rhythm , ABDOMEN: Soft , no tenderness EXTREMITIES: Diffuse swelling bilateral lower extremity minimal redness no drainage - Labs CBC & Chem 7: 06/10/22 07:00 06/10/22 07:00 Labs: Abnormal Lab Results - Last 24 Hours (Table) 06/08/22 06/08/22 06/08/22 Range/Units 11:37 16:37 19:35 Sodium (137-145) mmol/L Potassium (3.5-5.1) mmol/L Chloride (98-107) mmol/L BUN (9-20) mg/dL Creatinine (0.66-1.25) mg/dL Glucose (74-99) mg/dL POC Glucose (mg/dL) 201 H 139 H 202 H (70-110) mg/dL Total Bilirubin (0.2-1.3) mg/dL AST (17-59) U/L ALT (4-49) U/L Alkaline Phosphatase (38-126) U/L Total Protein (6.3-8.2) g/dL Albumin (3.5-5.0) g/dL 06/09/22 06/09/22 Range/Units 05:50 07:49 Sodium 133 L (137-145) mmol/L Potassium 3.0 L (3.5-5.1) mmol/L Chloride 95 L (98-107) mmol/L BUN 63 H (9-20) mg/dL Creatinine 1.74 H (0.66-1.25) mg/dL Glucose 129 H (74-99) mg/dL POC Glucose (mg/dL) 135 H (70-110) mg/dL Total Bilirubin 2.2 H (0.2-1.3) mg/dL AST 64 H (17-59) U/L ALT 60 H (4-49) U/L Alkaline Phosphatase 130 H (38-126) U/L Total Protein 6.1 L (6.3-8.2) g/dL Albumin 3.2 L (3.5-5.0) g/dL Microbiology - Last 24 Hours (Table) 06/07/22 Unknown Gram Stain - Preliminary Toe - Right First Wound Culture - Preliminary Assessment and Plan (1) Bilateral lower leg cellulitis Current Visit: No Status: Acute Code(s): L03.116 - CELLULITIS OF LEFT LOWER LIMB; L03.115 - CELLULITIS OF RIGHT LOWER LIMB SNOMED Code(s): 696159429 Plan: 1patient presented hospital with increasing swelling lower extremity especially left leg with some erythema slight pain and warmth concerning for cellulitis wi th diffuse swelling redness and features of fluid overload likely representing streptococcal cellulitis. 2patient seemed to have shown some clinical improvement and will continue with cefazolin 2 g every 8 hours. 3patient to continue with Ishan wrap to the leg to keep the swelling down. Time with Patient: Less than 30
--- NOTE | 2022-06-10 16:32 | P.PN ---
Subjective Progress Note Date: 06/10/22 Principal diagnosis: Bilateral lower extremity cellulitis Patient is a 71-year-old male presented to hospital with weakness and increasing shortness of breath increasing swelling redness to lower extremity, patient had been diagnosed with lower extremity cellulitis. On today's evaluation that is 06/10/2022, the patient continues to be afebrile, patient is breathing comfortably on nasal cannula oxygen , the patient denies chest pain or any worsening cough no abdominal pain, the patient swelling and redness to the legs has slightly decreased and there is no drainage Objective - Vital Signs Vital signs: Vital Signs Temp 97.6 F 06/10/22 07:58 Pulse 65 06/10/22 11:06 Resp 18 06/10/22 11:06 BP 129/58 06/10/22 11:06 Pulse Ox 95 06/10/22 11:06 FiO2 21 06/07/22 15:54 Intake & Output 06/09/22 06/10/22 06/10/22 18:59 06:59 18:59 Intake Total 240 Output Total 1450 1725 1100 Balance -1450 -1725 -860 Weight 142.5 kg Intake: Oral 240 Output: Urine 1200 1725 1100 Stool 250 Other: Voiding Method Urinal Urinal Urinal - Exam GENERAL DESCRIPTION: An elderly male lying in bed in no distress RESPIRATORY SYSTEM: Unlabored breathing , decreased breath sounds at bases HEART: S1 S2 regular rate and rhythm , ABDOMEN: Soft , no tenderness EXTREMITIES: Diffuse swelling bilateral lower extremity minimal redness no drainage - Labs CBC & Chem 7: 06/10/22 07:00 06/10/22 07:00 Labs: Abnormal Lab Results - Last 24 Hours (Table) 06/09/22 06/09/22 06/10/22 Range/Units 16:33 19:38 06:03 RBC (4.30-5.90) m/uL Hgb (13.0-17.5) gm/dL RDW (11.5-15.5) % Plt Count (150-450) k/uL Sodium (137-145) mmol/L Chloride (98-107) mmol/L Carbon Dioxide (22-30) mmol/L BUN (9-20) mg/dL Creatinine (0.66-1.25) mg/dL Glucose (74-99) mg/dL POC Glucose (mg/dL) 181 H 205 H 149 H (70-110) mg/dL Total Bilirubin (0.2-1.3) mg/dL Alkaline Phosphatase (38-126) U/L Albumin (3.5-5.0) g/dL 06/10/22 06/10/22 06/10/22 Range/Units 07:00 07:00 11:53 RBC 4.03 L (4.30-5.90) m/uL Hgb 12.5 L (13.0-17.5) gm/dL RDW 15.7 H (11.5-15.5) % Plt Count 142 L (150-450) k/uL Sodium 132 L (137-145) mmol/L Chloride 90 L (98-107) mmol/L Carbon Dioxide 31 H (22-30) mmol/L BUN 65 H (9-20) mg/dL Creatinine 1.72 H (0.66-1.25) mg/dL Glucose 144 H (74-99) mg/dL POC Glucose (mg/dL) 215 H (70-110) mg/dL Total Bilirubin 2.0 H (0.2-1.3) mg/dL Alkaline Phosphatase 133 H (38-126) U/L Albumin 3.4 L (3.5-5.0) g/dL Microbiology - Last 24 Hours (Table) 06/07/22 Unknown Gram Stain - Final Toe - Right First Wound Culture - Final Assessment and Plan (1) Bilateral lower leg cellulitis Current Visit: No Status: Acute Code(s): L03.116 - CELLULITIS OF LEFT LOWER LIMB; L03.115 - CELLULITIS OF RIGHT LOWER LIMB SNOMED Code(s): 023160915 Plan: 1patient presented hospital with increasing swelling lower extremity especially left leg with some erythema slight pain and warmth concerning for cellulitis with diffuse swelling redness and features of fluid overload likely representing streptococcal cellulitis. 2patient to continue with Ishan wrap to the leg to keep the swelling down. 3- patient seemed to have shown some clinical improvement and will continue with cefazolin and monitor clinical course closely Time with Patient: Less than 30
[2022-06-10 16:43] LABS: Glucose,Whole Blood 162 mg/dL (70-110)
--- NOTE | 2022-06-10 18:28 | P.PN ---
Subjective This is a 71 year old male who presents with complaints of swollen legs with increased shortness of breath that has been increasing over the last few months. Patient also reports episode of chest tightness midsternal throughout the evening but denies "chest pain." No fever or chills, no cough. Reports urinary retention with weak stream. He does have enlarged prostate and is maintained on finasteride. He ran over his left great toe with his walker with injury to nail bed, he does have some purulent drainage which will be cultured. There is lower extremity cellulitis on the left and patient did have maggots in the wound. Infectious disease will be consulted. On admission chest X-ray shows mild pulmonary vascular congestion. [place] [address] and patient has been started on IV lasix 40 mg every 8 hours. Troponin elevation at 0.055, 0.062, 0.066, 0.070 which is more consistent with CHF exacerbation, cardiology has been consulted. Liver enzymes are also elevated, creatinine 1.93. Patient has medical history significant for atrial fibrillation anticoagulated with eliquis, asthma, heart failure, hyperlipidemia, hypertension, chronic PVD, diabetes, neuropathy, History of B cell lymphoma, chronic kidney disease. He fo llows with Dr Talley in the office, primary care provider Dr Hicks. Most recent echocardiogram in 2020 showing EF 50 to 55% with mild aortic regurg, mild mitral regurg, and mild tricuspid regurg. Patient is admitted to the hospital for CHF exacerbation, and cellulitis. He has been started on IV lasix, IV clindamycin emprically as he has allergy to penicillin and 2D echocardiogram has been ordered. 06/08/2022 Patient evaluated today sitting up in the chair. He reports breathing better has been able to ambulate into the restroom. Lower extremity edema has improved as well as erythema to the left lower extremity. He does have pedal edema on the left. Wound cultures are pending prelim showing gram negative bacilli. He continues on IV cefazolin with infectious disease consultation. Wound care has also evaluated the patient. IV Lasix has been decreased to Q12, negative 2.6 liters in the last 24 hours. Echocardiogram completed showing EF of 25 to 30%, dilated left ventricle, with moderate pulmonary hypertension, modeate mitral and tricuspid regurgitation and mild to moderate aortic regurgitation. He continues on 3L nasal cannula, no home oxygen, blood pressure 105/77, afebrile. 06/09/2022 Patient evaluated today resting in bed. at the bedside and is updated on hospital course. Lower extremity edema has improved he is down overall about 12 lbs although weight charting seems inaccurate. He does sill have shortness of breath when ambulating, he is hoping to increase activity. He may need subacute rehab on discharge. He is continued on IV lasix which has been increased to Q8 hour. Creatinine today is 1.7 and we will consult nephrology. Patient sees Dr Rinaldi outpatient.. We will also stop metolazone for now. Infectious disease has okay patient for discharge on keflex when he is stable otherwise. Patient received 60 meq of potassium we will given an additional 40meq today. He is afebrile, heart rate 70s, blood pressure 112/69, 97% room air. 06/10/2022 Objective - Vital Signs Vital signs: Vital Signs Temp 97.6 F 06/10/22 07:58 Pulse 65 06/10/22 11:06 Resp 18 06/10/22 11:06 BP 129/58 06/10/22 11:06 Pulse Ox 95 06/10/22 11:06 FiO2 21 06/07/22 15:54 Intake & Output 06/09/22 06/10/22 06/10/22 18:59 06:59 18:59 Intake Total 240 Output Total 1450 1725 1100 Balance -1450 -1725 -860 Weight 142.5 kg Intake: Oral 240 Output: Urine 1200 1725 1100 Stool 250 Other: Voiding Method Urinal Urinal Urinal - Exam -GENERAL: The patient is alert and oriented x3, not in any acute distress. Morbidly obese HEENT: Pupils are round and equally reacting to light. EOMI. No scleral icterus. No conjunctival pallor. Normocephalic, atraumatic. No pharyngeal erythema. No thyromegaly. CARDIOVASCULAR: S1 and S2 present. No murmurs, rubs, or gallops. PULMONARY: Chest is clear to auscultation, no wheezing or crackles. ABDOMEN: Soft, nontender, nondistended, normoactive bowel sounds. No palpable organomegaly. MUSCULOSKELETAL: No joint swelling or deformity. -EXTREMITIES: No cyanosis, clubbing, . bilateral pitting leg edema, left leg cellulitis with redness and warmth NEUROLOGICAL: Gross neurological examination did not reveal any focal deficits. SKIN: No rashes. no petechiae. - Labs CBC & Chem 7: 06/10/22 07:00 06/10/22 07:00 Labs: Abnormal Lab Results - Last 24 Hours (Table) 06/09/22 06/09/22 06/10/22 Range/Units 16:33 19:38 06:03 RBC (4.30-5.90) m/uL Hgb (13.0-17.5) gm/dL RDW (11.5-15.5) % Plt Count (150-450) k/uL Sodium (137-145) mmol/L Chloride (98-107) mmol/L Carbon Dioxide (22-30) mmol/L BUN (9-20) mg/dL Creatinine (0.66-1.25) mg/dL Glucose (74-99) mg/dL POC Glucose (mg/dL) 181 H 205 H 149 H (70-110) mg/dL Total Bilirubin (0.2-1.3) mg/dL Alkaline Phosphatase (38-126) U/L Albumin (3.5-5.0) g/dL 06/10/22 06/10/22 06/10/22 Range/Units 07:00 07:00 11:53 RBC 4.03 L (4.30-5.90) m/uL Hgb 12.5 L (13.0-17.5) gm/dL RDW 15.7 H (11.5-15.5) % Plt Count 142 L (150-450) k/uL Sodium 132 L (137-145) mmol/L Chloride 90 L (98-107) mmol/L Carbon Dioxide 31 H (22-30) mmol/L BUN 65 H (9-20) mg/dL Creatinine 1.72 H (0.66-1.25) mg/dL Glucose 144 H (74-99) mg/dL POC Glucose (mg/dL) 215 H (70-110) mg/dL Total Bilirubin 2.0 H (0.2-1.3) mg/dL Alkaline Phosphatase 133 H (38-126) U/L Albumin 3.4 L (3.5-5.0) g/dL Microbiology - Last 24 Hours (Table) 06/07/22 Unknown Gram Stain - Final Toe - Right First Wound Culture - Final Assessment and Plan Assessment: Left lower extremity cellulitis with sepsis with great toe wound Acute kidney injury, secondary to cardiorenal syndrome Acute on chronic Systolic heart failure Troponin leak Chronic kidney disease stage 3 Hyponatremia hypervolemic Hypokalemia secondary to diuresis Diabetes mellitus with hyperglycemia Elevated LFT's most likely from vascular congestion will monitor trends Chronic atrial fibrillation anticoagulated with eliquis Coronary artery disease status post stenting History of COPD / Asthma Hyperlipidemia Hypertension, currently normotensive Chronic peripheral vascular disease History B cell lymphoma underwent treatment in 2017 History of BPH Obesity Plan: This is a pleasant 72 years old male who presents with left lower extremity cellulitis and acute CHF and AKA high Continue with cefazolin, ID team on the case Continue with Lasix drip and monitor input and output and creatinine Cardiology and nephrology consult Labs and medication were reviewed.. Continue same treatment. Continue with symptomatic treatment. Resume home medication. Monitor lytes and vitals. DVT and GI prophylaxis. Further recommendations as per clinical course of the patient DVT prophylaxis: Eliquis GI Prophylaxis: Pepcid PT/OT: Pending Prognosis is guarded
--- NOTE | 2022-06-10 19:31 | PN ---
PROGRESS NOTE Mr. Welsh is in atrial fibrillation. Rate is controlled. His edema is significant. His weight has not dropped much. I have discussed with the patient poor overall prognosis, given his ejection fraction of 20% to 25%. I am recommending that we will place him on Lasix drip and Zaroxolyn combination and check electrolytes. The patient has a combination of ischemic and nonischemic cardiomyopathy with previous PCI of circumflex marginal and has 60% LAD disease calcified. No significant troponin rise. His presentation is that of heart failure with CKD and diabetes. Vitals are stable. JVD is evident. S1, S2 with irregular rhythm, short systolic murmur. Lungs reveal decent air entry. Abdomen is soft. Significant bilateral lower extremity edema. MMODL / IJN: [id number] /
[2022-06-10 19:53] LABS: Glucose,Whole Blood 220 mg/dL (70-110)
[2022-06-10] MEDS: ATORVASTATIN 40 MG TAB PO SCH (20:30)
[2022-06-11] MEDS: FUROSEMIDE 100 MG in SODIUM CHLORIDE 0.9% 90 ML IV SCH ×2 (05:00→17:38)
[2022-06-11 06:13] LABS: Glucose,Whole Blood 136 mg/dL (70-110)
[2022-06-11] MEDS: LEVOTHYROXINE 50 MCG TAB PO SCH (06:20)
[2022-06-11] MEDS: NITROGLYCERIN OINT 1 INCH/GM PACKET TOPICAL SCH ×4 (06:21→23:57)
[2022-06-11] MEDS: INSULIN ASPART (NovoLOG) 100 UNIT/ML VIAL SQ SCH ×4 (06:21→20:31)
[2022-06-11 08:13] LABS: Basophils # (A) 0.1 k/uL (0-0.2); Basophils % (A) 1 %; Eosinophils # (A) 0.2 k/uL (0-0.7); Eosinophils % (A) 2 %; HCT 43.4 % (39.0-53.0); HGB 13.4 gm/dL (13.0-17.5); Hypochromasia Moderate; Lymphocytes # (A) 1.3 k/uL (1.0-4.8); Lymphocytes % (A) 16 %; MCH 30.7 pg (25.0-35.0); MCHC 30.9 g/dL (31.0-37.0); MCV 99.5 fL (80.0-100.0); Macrocytosis Slight; Mean Platelet Volume 9.2; Monocytes # (A) 0.7 k/uL (0-1.0); Monocytes % (A) 9 %; Neutrophils # (A) 5.4 k/uL (1.3-7.7); Neutrophils % (A) 70 %; Platelet Count 157 k/uL (150-450); Poikilocytosis Slight; RBC 4.36 m/uL (4.30-5.90); RDW 15.7 % (11.5-15.5); WBC 7.7 k/uL (3.8-10.6)
[2022-06-11 08:25] LABS: Calcium 9.1 mg/dL (8.4-10.2); Magnesium 2.1 mg/dL (1.6-2.3); Potassium 3.4 mmol/L (3.5-5.1)
[2022-06-11] MEDS: FLUTICASONE 110 MCG INHALER INHALATION SCH ×2 (08:42→20:32)
--- NOTE | 2022-06-11 10:05 | P.PN ---
Subjective Progress Note Date: 06/11/22 Principal diagnosis: Patient is a 72-year-old male with history of chronic kidney disease NKF stage III B with baseline creatinine around 1.4-1.6 mg/dL. Etiology is nephroscleros is. Patient is admitted to the hospital with increased lower extremity swelling and shortness of breath. Patient did have some chest discomfort as well. No history of fever chills nausea vomiting or abdominal pain Patient is currently being diuresed. He is maintained on IV Lasix. He has had good urine output. Is feeling better less short of breath edema is less. He is eating very well Vital signs are stable blood pressure 109/55 to 121/66. 24-hour urine output is 61 50 mL, creatinine is down to 1.62 from 1.7 to yesterday. He has significant edema although better supposedly Objective - Vital Signs Vital signs: Vital Signs Temp 97.7 F 06/11/22 08:00 Pulse 78 06/11/22 08:00 Resp 16 06/11/22 08:00 BP 109/55 06/11/22 08:00 Pulse Ox 94 L 06/11/22 08:00 FiO2 21 06/07/22 15:54 Intake & Output 06/10/22 06/11/22 06/11/22 18:59 06:59 18:59 Intake Total 1678 561.334 120 Output Total 3625 2525 Balance -1947 -1963.666 120 Weight 137.4 kg 135.4 kg Intake: Intake, IV Titration 161.334 Amount Furosemide 100 mg In 161.334 Sodium Chloride 0.9% 90 ml @ 10 MG/HR 10 mls/hr IV .Q10H [facility] Rx#: [id number] Oral 1678 400 120 Output: Urine 3625 2525 Other: Voiding Method Urinal Urinal Exam is awake alert oriented No JVP noted no facial asymmetry Lungs are clear to auscultation fair air entry bilaterally although may be somewhat less on the left side. Heart sounds unremarkable for any murmur rub gallop Abdomen soft protuberant Extreme exam was 2+ edema chronic. Neurologically awake alert oriented but generalized - Labs CBC & Chem 7: 06/11/22 07:25 06/11/22 07:25 Labs: Abnormal Lab Results - Last 24 Hours (Table) 07/15/22 07/15/22 07/15/22 Range/Units 11:53 16:42 19:52 MCHC (31.0-37.0) g/dL RDW (11.5-15.5) % Sodium (137-145) mmol/L Potassium (3.5-5.1) mmol/L Chloride (98-107) mmol/L Carbon Dioxide (22-30) mmol/L BUN (9-20) mg/dL Creatinine (0.66-1.25) mg/dL Glucose (74-99) mg/dL POC Glucose (mg/dL) 215 H 162 H 220 H (70-110) mg/dL 06/11/22 06/11/22 06/11/22 Range/Units 06:12 07:25 07:25 MCHC 30.9 L (31.0-37.0) g/dL RDW 15.7 H (11.5-15.5) % Sodium 133 L (137-145) mmol/L Potassium 3.4 L (3.5-5.1) mmol/L Chloride 88 L (98-107) mmol/L Carbon Dioxide 36 H (22-30) mmol/L BUN 64 H (9-20) mg/dL Creatinine 1.62 H (0.66-1.25) mg/dL Glucose 170 H (74-99) mg/dL POC Glucose (mg/dL) 136 H (70-110) mg/dL Assessment and Plan Plan: Impression 1. Acute kidney injury improving with diuretics creatinine coming down from a peak of 1.94-1.6 with 6 L of urine output. On Lasix drip at 10 mg per hour additionally metolazone 5 mg 2. Chronic kidney disease Baseline creatinine is 1.6 nephrosclerosis 3. Significant edema improving on current dose of Lasix 4. Mild hypokalemia secondary to diuresis, potassium 3.4, currently on potassium 20 mEq 5. Mild hyponatremia secondary to PKD acute kidney injury and diuresis, sodium 133, stable 6. Mild degree of mild metabolic alkalosis secondary to diuresis bicarb is up to 36. 7. Atrial fibrillation, coronary artery disease 8. Multiple wounds bilaterally. Recommendation. 1. Add Aldactone 25 mg a day. Consult with a potassium 2. Give additional potassium 40 mEq, orally 3. Watch metabolic alkalosis as he needs aggressive diuretics for now. 4. Watch urine output vital signs and labs
[2022-06-11] MEDS: allopurinoL 300 MG TAB PO SCH (10:39)
[2022-06-11] MEDS: APIXABAN 2.5 MG TABLET PO SCH ×2 (10:39→20:31)
[2022-06-11] MEDS: FOLIC ACID 1 MG TAB PO SCH (10:40)
[2022-06-11] MEDS: FINASTERIDE 5 MG TAB PO SCH (10:40)
[2022-06-11] MEDS: LACOSAMIDE 50 MG TABLET PO SCH ×2 (10:40→20:30)
[2022-06-11] MEDS: metOLazone 5 MG TAB PO SCH (10:41)
[2022-06-11] MEDS: POTASSIUM CHLORIDE ER 20 MEQ TAB.ER PO SCH ×3 (10:41→12:25)
[2022-06-11] MEDS: FAMOTIDINE 20 MG TAB PO SCH (10:41)
[2022-06-11] MEDS: BACITRACIN OINT 1 EACH PACKET TOPICAL SCH (10:42)
[2022-06-11] MEDS: FLUTICASONE 50MCG/SPRAY NASAL 16GM EA NOSTRIL SCH ×2 (10:42→20:37)
[2022-06-11] MEDS: NON FORMULARY DRUG (Empagliflozin [Jardiance] 10 MG Tablet) PO SCH (10:46)
[2022-06-11] MEDS: SPIRONOLACTONE 25 MG TAB PO SCH (10:49)
[2022-06-11 11:45] LABS: Glucose,Whole Blood 201 mg/dL (70-110)
--- NOTE | 2022-06-11 12:36 | P.PN ---
Subjective Progress Note Date: 06/11/22 The patient is a 72-year-old male who is currently admitted to the hospital with acute CHF exacerbation and cellulitis. New onset of cardiomyopathy with ejection fraction at 20-25%. He was not responding to IV Lasix, therefore yesterday he was transitioned to a Lasix drip. In the last 48 hours he has lost 7 kg. The patient was interviewed and examined sitting comfortably in bed. He states he does not sleep supine, therefore he cannot report whether he is orthopneic or not. He states he is breathing comfortably at rest. No chest pain or chest pressure. GENERAL: Ill-appearing, well-nourished and in no acute distress. NECK: Supple without JVD or thyromegaly. LUNGS: Breath sounds diminished to auscultation bilaterally. Respiration equal and unlabored. No wheezes, rales or rhonchi. HEART: Regular rate and rhythm without rubs or gallops. S1 and S2 heard. Soft systolic murmur. EXTREMITIES: Limited range of motion secondary to edema. 3-4+ with bilateral cellulitis. Currently in compression wraps. VITALS: Blood pressure 109/55, pulse 78, temp 97.7F, respiratory rate 16, SpO2 94% on room air TELEMETRY: Persistent atrial fibrillation, rate controlled LABS: WBC 7.7, hemoglobin 13.4, hematocrit 43.4, platelet 157, sodium 133, potassium 3.4, BUN 64, creatinine 1.62 IMPRESSION: Elevated troponins, flat trend Congestive heart failure, systolic New onset cardiomyopathy, EF 25% History of coronary artery disease History of hypertension Cellulitis, currently on antibiotics Acute kidney injury, improving Persistent atrial fibrillation, rate controlled, on Eliquis PLAN: Continue Lasix drip for additional 24 hours then transition back to IV dosing Continue to monitor strict I&O's Continue to monitor electrolytes and kidney function Further recommendations to be based upon clinical course I am dictating on behalf of Dr Troy Fagan's history/physical and assessment/plan. Objective - Vital Signs Vital signs: Vital Signs Temp 97.7 F 06/11/22 08:00 Pulse 78 06/11/22 08:00 Resp 16 06/11/22 08:00 BP 109/55 06/11/22 08:00 Pulse Ox 94 L 06/11/22 08:00 FiO2 21 06/07/22 15:54 Intake & Output 06/10/22 06/11/22 06/11/22 18:59 06:59 18:59 Intake Total 1678 561.334 Output Total 6343 1925 Balance -1947 -1963.666 Weight 137.4 kg 135.4 kg Intake: Intake, IV Titration 161.334 Amount Furosemide 100 mg In 161.334 Sodium Chloride 0.9% 90 ml @ 10 MG/HR 10 mls/hr IV .Q10H [facility] Rx#: [id number] Oral 1678 400 Output: Urine 7813 7786 Other: Voiding Method Urinal Urinal - Labs CBC & Chem 7: 06/11/22 07:25 06/11/22 07:25 Labs: Abnormal Lab Results - Last 24 Hours (Table) 06/10/22 06/10/22 06/10/22 Range/Units 11:53 16:42 19:52 MCHC (31.0-37.0) g/dL RDW (11.5-15.5) % Sodium (137-145) mmol/L Potassium (3.5-5.1) mmol/L Chloride (98-107) mmol/L Carbon Dioxide (22-30) mmol/L BUN (9-20) mg/dL Creatinine (0.66-1.25) mg/dL Glucose (74-99) mg/dL POC Glucose (mg/dL) 215 H 162 H 220 H (70-110) mg/dL 06/11/22 06/11/22 06/11/22 Range/Units 06:12 07:25 07:25 MCHC 30.9 L (31.0-37.0) g/dL RDW 15.7 H (11.5-15.5) % Sodium 133 L (137-145) mmol/L Potassium 3.4 L (3.5-5.1) mmol/L Chloride 88 L (98-107) mmol/L Carbon Dioxide 36 H (22-30) mmol/L BUN 64 H (9-20) mg/dL Creatinine 1.62 H (0.66-1.25) mg/dL Glucose 170 H (74-99) mg/dL POC Glucose (mg/dL) 136 H (70-110) mg/dL
--- NOTE | 2022-06-11 16:29 | P.PN ---
Subjective This is a 71 year old male who presents with complaints of swollen legs with increased shortness of breath that has been increasing over the last few months. Patient also reports episode of chest tightness midsternal throughout the evening but denies "chest pain." No fever or chills, no cough. Reports urinary retention with weak stream. He does have enlarged prostate and is maintained on finasteride. He ran over his left great toe with his walker with injury to nail bed, he does have some purulent drainage which will be cultured. There is lower extremity cellulitis on the left and patient did have maggots in the wound. Infectious disease will be consulted. On admission chest X-ray shows mild pulmonary vascular congestion. [place] [address] and patient has been started on IV lasix 40 mg every 8 hours. Troponin elevation at 0.055, 0.062, 0.066, 0.070 which is more consistent with CHF exacerbation, cardiology has been consulted. Liver enzymes are also elevated, creatinine 1.93. Patient has medical history significant for atrial fibrillation anticoagulated with eliquis, asthma, heart failure, hyperlipidemia, hypertension, chronic PVD, diabetes, neuropathy, History of B cell lymphoma, chronic kidney disease. He fo llows with Dr Talley in the office, primary care provider Dr Hicks. Most recent echocardiogram in 2020 showing EF 50 to 55% with mild aortic regurg, mild mitral regurg, and mild tricuspid regurg. Patient is admitted to the hospital for CHF exacerbation, and cellulitis. He has been started on IV lasix, IV clindamycin emprically as he has allergy to penicillin and 2D echocardiogram has been ordered. 06/08/2022 Patient evaluated today sitting up in the chair. He reports breathing better has been able to ambulate into the restroom. Lower extremity edema has improved as well as erythema to the left lower extremity. He does have pedal edema on the left. Wound cultures are pending prelim showing gram negative bacilli. He continues on IV cefazolin with infectious disease consultation. Wound care has also evaluated the patient. IV Lasix has been decreased to Q12, negative 2.6 liters in the last 24 hours. Echocardiogram completed showing EF of 25 to 30%, dilated left ventricle, with moderate pulmonary hypertension, modeate mitral and tricuspid regurgitation and mild to moderate aortic regurgitation. He continues on 3L nasal cannula, no home oxygen, blood pressure 105/77, afebrile. 06/09/2022 Patient evaluated today resting in bed. at the bedside and is updated on hospital course. Lower extremity edema has improved he is down overall about 12 lbs although weight charting seems inaccurate. He does sill have shortness of breath when ambulating, he is hoping to increase activity. He may need subacute rehab on discharge. He is continued on IV lasix which has been increased to Q8 hour. Creatinine today is 1.7 and we will consult nephrology. Patient sees Dr Rinaldi outpatient.. We will also stop metolazone for now. Infectious disease has okay patient for discharge on keflex when he is stable otherwise. Patient received 60 meq of potassium we will given an additional 40meq today. He is afebrile, heart rate 70s, blood pressure 112/69, 97% room air. 06/10/2022 Patient has significant urine output and with that his leg swelling is improved as well as left lower extremity cellulitis. His creatinine down to 1.6 today compared to 1.7 yesterday. He remains on IV Lasix drip with recommendation to switch to IV Lasix shots tomorrow per [employer] senior [employer]. Also is on Aldactone and zaroxylin Also he is on cefazolin for cellulitis. Continue with home dose of Eliquis 2.5 Objective - Vital Signs Vital signs: Vital Signs Temp 97.7 F 06/11/22 08:00 Pulse 78 06/11/22 08:00 Resp 16 06/11/22 08:00 BP 109/55 06/11/22 08:00 Pulse Ox 94 L 06/11/22 08:00 FiO2 21 06/07/22 15:54 Intake & Output 06/10/22 06/11/22 06/11/22 18:59 06:59 18:59 Intake Total 1678 561.334 Output Total 3625 2525 Balance -7 -1962.666 Weight 137.4 kg 135.4 kg Intake: Intake, IV Titration 161.334 Amount Furosemide 100 mg In 161.334 Sodium Chloride 0.9% 90 ml @ 10 MG/HR 10 mls/hr IV .Q10H [facility] Rx#: [id number] Oral 1678 400 Output: Urine 3625 2525 Other: Voiding Method Urinal Urinal - Exam -GENERAL: The patient is alert and oriented x3, not in any acute distress. Morbidly obese HEENT: Pupils are round and equally reacting to light. EOMI. No scleral icterus. No conjunctival pallor. Normocephalic, atraumatic. No pharyngeal erythema. No thyromegaly. CARDIOVASCULAR: S1 and S2 present. No murmurs, rubs, or gallops. PULMONARY: Chest is clear to auscultation, no wheezing or crackles. ABDOMEN: Soft, nontender, nondistended, normoactive bowel sounds. No palpable organomegaly. MUSCULOSKELETAL: No joint swelling or deformity. -EXTREMITIES: No cyanosis, clubbing, . bilateral pitting leg edema, left leg cellulitis with redness and warmth NEUROLOGICAL: Gross neurological examination did not reveal any focal deficits. SKIN: No rashes. no petechiae. - Labs CBC & Chem 7: 06/11/22 07:25 06/11/22 07:25 Labs: Abnormal Lab Results - Last 24 Hours (Table) 06/10/22 06/10/22 06/10/22 Range/Units 11:53 16:42 19:52 MCHC (31.0-37.0) g/dL RDW (11.5-15.5) % Sodium (137-145) mmol/L Potassium (3.5-5.1) mmol/L Chloride (98-107) mmol/L Carbon Dioxide (22-30) mmol/L BUN (9-20) mg/dL Creatinine (0.66-1.25) mg/dL Glucose (74-99) mg/dL POC Glucose (mg/dL) 215 H 162 H 220 H (70-110) mg/dL 06/11/22 06/11/22 06/11/22 Range/Units 06:12 07:25 07:25 MCHC 30.9 L (31.0-37.0) g/dL RDW 15.7 H (11.5-15.5) % Sodium 133 L (137-145) mmol/L Potassium 3.4 L (3.5-5.1) mmol/L Chloride 88 L (98-107) mmol/L Carbon Dioxide 36 H (22-30) mmol/L BUN 64 H (9-20) mg/dL Creatinine 1.62 H (0.66-1.25) mg/dL Glucose 170 H (74-99) mg/dL POC Glucose (mg/dL) 136 H (70-110) mg/dL Assessment and Plan Assessment: Left lower extremity cellulitis with sepsis with great toe wound Acute kidney injury, secondary to cardiorenal syndrome Acute on chronic Systolic heart failure Troponin leak Chronic kidney disease stage 3 Hyponatremia hypervolemic Hypokalemia secondary to diuresis Diabetes mellitus with hyperglycemia Elevated LFT's most likely from vascular congestion will monitor trends Chronic atrial fibrillation anticoagulated with eliquis Coronary artery disease status post stenting History of COPD / Asthma Hyperlipidemia Hypertension, currently normotensive Chronic peripheral vascular disease History B cell lymphoma underwent treatment in 2017 History of BPH Obesity Plan: This is a pleasant 72 years old male who presents with left lower extremity cellulitis and acute CHF and AKA high Continue with cefazolin, ID team on the case Continue with Lasix drip and monitor input and output and creatinine Cardiology and nephrology consult Labs and medication were reviewed.. Continue same treatment. Continue with symptomatic treatment. Resume home medication. Monitor lytes and vitals. DVT and GI prophylaxis. Further recommendations as per clinical course of the patient DVT prophylaxis: Eliquis GI Prophylaxis: Pepcid PT/OT: Pending Prognosis is guarded
[2022-06-11 16:35] LABS: Glucose,Whole Blood 176 mg/dL (70-110)
[2022-06-11 20:23] LABS: Glucose,Whole Blood 190 mg/dL (70-110)
[2022-06-11] MEDS: ATORVASTATIN 40 MG TAB PO SCH (20:30)
--- NOTE | 2022-06-12 00:59 | P.PN ---
Subjective Progress Note Date: 06/11/22 Principal diagnosis: Bilateral lower extremity cellulitis Patient is a 71-year-old male presented to hospital with weakness and increasing shortness of breath increasing swelling redness to lower extremity, patient had been diagnosed with lower extremity cellulitis. On today's evaluation that is 06/11/2022, the patient remains to be afebrile, patient is complaining of some shortness of breath on exertion , the patient denies chest pain or cough no abdominal pain, the patient swelling and redness to the legs has slightly decreased and there is no drainage Objective - Vital Signs Vital signs: Vital Signs Temp 97.7 F 06/11/22 08:00 Pulse 78 06/11/22 08:00 Resp 16 06/11/22 08:00 BP 109/55 06/11/22 08:00 Pulse Ox 94 L 06/11/22 08:00 FiO2 21 06/07/22 15:54 Intake & Output 06/10/22 06/11/22 06/11/22 18:59 06:59 18:59 Intake Total 1678 561.334 120 Output Total 3625 2525 825 Balance -1947 -1963.666 -705 Weight 137.4 kg 135.4 kg Intake: Intake, IV Titration 161.334 Amount Furosemide 100 mg In 161.334 Sodium Chloride 0.9% 90 ml @ 10 MG/HR 10 mls/hr IV .Q10H [facility] Rx#: [id number] Oral 1678 400 120 Output: Urine 3625 2525 700 Post Void Residual 125 Other: Voiding Method Urinal Urinal - Exam GENERAL DESCRIPTION: An elderly male lying in bed in no distress RESPIRATORY SYSTEM: Unlabored breathing , decreased breath sounds at bases HEART: S1 S2 regular rate and rhythm , ABDOMEN: Soft , no tenderness EXTREMITIES: Diffuse swelling bilateral lower extremity minimal redness no drainage - Labs CBC & Chem 7: 06/11/22 07:25 06/11/22 07:25 Labs: Abnormal Lab Results - Last 24 Hours (Table) 06/10/22 06/10/22 06/10/22 Range/Units 11:53 16:42 19:52 MCHC (31.0-37.0) g/dL RDW (11.5-15.5) % Sodium (137-145) mmol/L Potassium (3.5-5.1) mmol/L Chloride (98-107) mmol/L Carbon Dioxide (22-30) mmol/L BUN (9-20) mg/dL Creatinine (0.66-1.25) mg/dL Glucose (74-99) mg/dL POC Glucose (mg/dL) 215 H 162 H 220 H (70-110) mg/dL 06/11/22 06/11/22 06/11/22 Range/Units 06:12 07:25 07:25 MCHC 30.9 L (31.0-37.0) g/dL RDW 15.7 H (11.5-15.5) % Sodium 133 L (137-145) mmol/L Potassium 3.4 L (3.5-5.1) mmol/L Chloride 88 L (98-107) mmol/L Carbon Dioxide 36 H (22-30) mmol/L BUN 64 H (9-20) mg/dL Creatinine 1.62 H (0.66-1.25) mg/dL Glucose 170 H (74-99) mg/dL POC Glucose (mg/dL) 136 H (70-110) mg/dL Assessment and Plan (1) Bilateral lower leg cellulitis Current Visit: No Status: Acute Code(s): L03.116 - CELLULITIS OF LEFT LOWER LIMB; L03.115 - CELLULITIS OF RIGHT LOWER LIMB SNOMED Code(s): 007879141 Plan: 1patient presented hospital with increasing swelling lower extremity especially left leg with some erythema slight pain and warmth concerning for cellulitis with diffuse swelling redness and features of fluid overload likely representing streptococcal cellulitis. 2patient with a penicillin allergy that would limit the number of antibiotics safe to use. 3Ace wrap to the leg to keep the swelling down. 4patient did have some clinical improvement and will continue with cefazolin 2 g every 8 hours. Time with Patient: Less than 30
[2022-06-12] MEDS: FUROSEMIDE 100 MG in SODIUM CHLORIDE 0.9% 90 ML IV SCH (01:00)
[2022-06-12 06:10] LABS: Glucose,Whole Blood 153 mg/dL (70-110)
[2022-06-12] MEDS: INSULIN ASPART (NovoLOG) 100 UNIT/ML VIAL SQ SCH ×4 (06:14→20:47)
[2022-06-12] MEDS: LEVOTHYROXINE 50 MCG TAB PO SCH (06:14)
[2022-06-12] MEDS: NITROGLYCERIN OINT 1 INCH/GM PACKET TOPICAL SCH ×4 (06:14→23:39)
[2022-06-12 08:03] LABS: Magnesium 2.1 mg/dL (1.6-2.3); Potassium 3.3 mmol/L (3.5-5.1)
[2022-06-12] MEDS: FLUTICASONE 110 MCG INHALER INHALATION SCH ×2 (08:32→20:56)
--- NOTE | 2022-06-12 09:19 | P.PN ---
Subjective Progress Note Date: 06/12/22 Principal diagnosis: Patient is a 72-year-old male with history of chronic kidney disease NKF stage III B with baseline creatinine around 1.4-1.6 mg/dL. Etiology is nephroscleros is. Patient is admitted to the hospital with increased lower extremity swelling and shortness of breath. Patient did have some chest discomfort as well. No history of fever chills nausea vomiting or abdominal pain Patient is currently being diuresed. He is maintained on IV Lasix. He has had good urine output. Is feeling better less short of breath edema is less. He is eating very well Vital signs are stable 24-hour urine output is 48 25 mL, creatinine is improved to 1.54, has mild hypokalemia and hyponatremia secondary to diuresis and congestive heart failure Objective - Vital Signs Vital signs: Vital Signs Temp 98.3 F 06/12/22 08:00 Pulse 79 06/12/22 08:00 Resp 18 06/12/22 08:00 BP 112/68 06/12/22 08:00 Pulse Ox 95 06/12/22 08:00 FiO2 21 06/07/22 15:54 Intake & Output 06/11/22 06/12/22 06/12/22 18:59 06:59 18:59 Intake Total 700 73.667 360 Output Total 2225 2600 500 Balance -1525 -2526.333 -140 Intake: Intake, IV Titration 100 73.667 Amount Furosemide 100 mg In 100 73.667 Sodium Chloride 0.9% 90 ml @ 10 MG/HR 10 mls/hr IV .Q10H [facility] Rx#: [id number] Oral 600 360 Output: Urine 2100 2600 500 Post Void Residual 125 Other: Voiding Method Urinal Urinal On examination is awake alert oriented comfortable HEENT exam no JVP neck is supple no facial asymmetry Lungs clear to auscultation good air entry bilaterally Heart sounds unremarkable for any murmur rub gallop Abdomen is obese difficult to examine nontender Extreme exam was 3+ edema. Neurologically awake alert oriented - Labs CBC & Chem 7: 06/11/22 07:25 06/12/22 07:22 Labs: Abnormal Lab Results - Last 24 Hours (Table) 06/11/22 06/11/22 06/11/22 Range/Units 11:43 16:33 20:21 Sodium (137-145) mmol/L Potassium (3.5-5.1) mmol/L Chloride (98-107) mmol/L Carbon Dioxide (22-30) mmol/L BUN (9-20) mg/dL Creatinine (0.66-1.25) mg/dL Glucose (74-99) mg/dL POC Glucose (mg/dL) 201 H 176 H 190 H (70-110) mg/dL 06/12/22 06/12/22 Range/Units 06:08 07:22 Sodium 133 L (137-145) mmol/L Potassium 3.3 L (3.5-5.1) mmol/L Chloride 88 L (98-107) mmol/L Carbon Dioxide 38 H (22-30) mmol/L BUN 66 H (9-20) mg/dL Creatinine 1.54 H (0.66-1.25) mg/dL Glucose 144 H (74-99) mg/dL POC Glucose (mg/dL) 153 H (70-110) mg/dL Assessment and Plan Plan: Impression 1. Acute kidney injury improving with diuretics creatinine coming down from a peak of 1.94-, to 1.54 mg/dL. On Lasix drip at 10 mg per hour additionally metolazone 5 mg 2. Chronic kidney disease Baseline creatinine is 1.6 nephrosclerosis 3. Significant edema improving on current dose of Lasix 4. Mild hypokalemia secondary to diuresis, potassium 3.4, currently on potassium 20 mEq, have added Aldactone 25 mg a day yesterday 5. Mild hyponatremia secondary to PKD acute kidney injury and diuresis, sodium 133, stable 6. Mild degree of mild metabolic alkalosis secondary to diuresis bicarb is up to 36 > 38. 7. Atrial fibrillation, coronary artery disease 8. Multiple leg wounds bilaterally. Recommendation. 1. Continue Aldactone 25 mg a day. Consult with a potassium 2. Give additional potassium 40 mEq, orally 3. Watch metabolic alkalosis as he needs aggressive diuretics for now. 4. Watch urine output vital signs and labs
[2022-06-12] MEDS ORDERED: POTASSIUM CHLORIDE ER 20 MEQ TAB.ER PO STA (09:20)
[2022-06-12] MEDS: POTASSIUM CHLORIDE ER 20 MEQ TAB.ER PO SCH (09:23)
[2022-06-12] MEDS: LACOSAMIDE 50 MG TABLET PO SCH ×2 (09:23→20:46)
[2022-06-12] MEDS: APIXABAN 2.5 MG TABLET PO SCH ×2 (09:23→20:46)
[2022-06-12] MEDS: FAMOTIDINE 20 MG TAB PO SCH (09:23)
[2022-06-12] MEDS: SPIRONOLACTONE 25 MG TAB PO SCH (09:24)
[2022-06-12] MEDS: FINASTERIDE 5 MG TAB PO SCH (09:24)
[2022-06-12] MEDS: allopurinoL 300 MG TAB PO SCH (09:24)
[2022-06-12] MEDS: FOLIC ACID 1 MG TAB PO SCH (09:24)
[2022-06-12] MEDS: metOLazone 5 MG TAB PO SCH (09:25)
[2022-06-12] MEDS: BACITRACIN OINT 1 EACH PACKET TOPICAL SCH (09:25)
[2022-06-12] MEDS: FLUTICASONE 50MCG/SPRAY NASAL 16GM EA NOSTRIL SCH ×2 (09:25→20:56)
[2022-06-12] MEDS: NON FORMULARY DRUG (Empagliflozin [Jardiance] 10 MG Tablet) PO SCH (09:30)
--- NOTE | 2022-06-12 11:27 | P.PN ---
Subjective Progress Note Date: 06/12/22 The patient is a 72-year-old male who is currently admitted to the hospital with acute CHF exacerbation and cellulitis. New onset of cardiomyopathy with ejection fraction at 20-25%. He was diuresed to be a furosemide drip. No weight documented as of 06/12/2022, but was down 7 kg as of yesterday. The patient was interviewed and examined sitting comfortably in bed. He states he had difficulty sleeping overnight due to leg discomfort. No difficulty breathing. No chest pain or chest pressure. GENERAL: Pale, well-nourished and in no acute distress. NECK: Supple without JVD or thyromegaly. LUNGS: Breath sounds diminished to auscultation bilaterally. Respiration equal and unlabored. No wheezes, rales or rhonchi. HEART: Regular rate and rhythm without rubs or gallops. S1 and S2 heard. Soft systolic murmur. EXTREMITIES: Limited range of motion secondary to edema. 3-4+ with bilateral cellulitis. Currently in compression wraps. VITALS: Blood pressure 109/55, pulse 78, temp 97.7F, respiratory rate 16, SpO2 94% on room air TELEMETRY: Persistent atrial fibrillation, rate controlled LABS: Sodium 133, potassium 3.3, BUN 66, creatinine 1.54 IMPRESSION: Elevated troponins, flat trend Congestive heart failure, systolic New onset cardiomyopathy, EF 25% History of coronary artery disease History of hypertension Cellulitis, currently on antibiotics Acute kidney injury, improving Persistent atrial fibrillation, rate controlled, on Eliquis PLAN: Supplement electrolytes per protocol Transition to PO furosemide 80 mg twice daily Continue to monitor strict I&O's Continue to monitor electrolytes and kidney function Further recommendations to be based upon clinical course I am dictating on behalf of Dr Troy Fagan's history/physical and assessment/plan. Objective - Vital Signs Vital signs: Vital Signs Temp 98.3 F 06/12/22 08:00 Pulse 79 06/12/22 08:00 Resp 18 06/12/22 08:00 BP 112/68 06/12/22 08:00 Pulse Ox 95 06/12/22 08:00 FiO2 21 06/07/22 15:54 Intake & Output 06/11/22 06/12/22 06/12/22 18:59 06:59 18:59 Intake Total 700 73.667 360 Output Total 2225 2600 1000 Balance -1640 -0727.470 -087 Intake: Intake, IV Titration 100 73.667 Amount Furosemide 100 mg In 100 73.667 Sodium Chloride 0.9% 90 ml @ 10 MG/HR 10 mls/hr IV .Q10H [facility] Rx#: [id number] Oral 600 360 Output: Urine 2100 2600 1000 Post Void Residual 125 Other: Voiding Method Urinal Urinal - Labs CBC & Chem 7: 06/11/22 07:25 06/12/22 07:22 Labs: Abnormal Lab Results - Last 24 Hours (Table) 06/11/22 06/11/22 06/11/22 Range/Units 11:43 16:33 20:21 Sodium (137-145) mmol/L Potassium (3.5-5.1) mmol/L Chloride (98-107) mmol/L Carbon Dioxide (22-30) mmol/L BUN (9-20) mg/dL Creatinine (0.66-1.25) mg/dL Glucose (74-99) mg/dL POC Glucose (mg/dL) 201 H 176 H 190 H (70-110) mg/dL 06/12/22 06/12/22 Range/Units 06:08 07:22 Sodium 133 L (137-145) mmol/L Potassium 3.3 L (3.5-5.1) mmol/L Chloride 88 L (98-107) mmol/L Carbon Dioxide 38 H (22-30) mmol/L BUN 66 H (9-20) mg/dL Creatinine 1.54 H (0.66-1.25) mg/dL Glucose 144 H (74-99) mg/dL POC Glucose (mg/dL) 153 H (70-110) mg/dL
[2022-06-12 11:58] LABS: Glucose,Whole Blood 199 mg/dL (70-110)
--- NOTE | 2022-06-12 15:13 | P.PN ---
Subjective This is a 71 year old male who presents with complaints of swollen legs with increased shortness of breath that has been increasing over the last few months. Patient also reports episode of chest tightness midsternal throughout the evening but denies "chest pain." No fever or chills, no cough. Reports urinary retention with weak stream. He does have enlarged prostate and is maintained on finasteride. He ran over his left great toe with his walker with injury to nail bed, he does have some purulent drainage which will be cultured. There is lower extremity cellulitis on the left and patient did have maggots in the wound. Infectious disease will be consulted. On admission chest X-ray shows mild pulmonary vascular congestion. [place] [address] and patient has been started on IV lasix 40 mg every 8 hours. Troponin elevation at 0.055, 0.062, 0.066, 0.070 which is more consistent with CHF exacerbation, cardiology has been consulted. Liver enzymes are also elevated, creatinine 1.93. Patient has medical history significant for atrial fibrillation anticoagulated with eliquis, asthma, heart failure, hyperlipidemia, hypertension, chronic PVD, diabetes, neuropathy, History of B cell lymphoma, chronic kidney disease. He fo llows with Dr Talley in the office, primary care provider Dr Hicks. Most recent echocardiogram in 2020 showing EF 50 to 55% with mild aortic regurg, mild mitral regurg, and mild tricuspid regurg. Patient is admitted to the hospital for CHF exacerbation, and cellulitis. He has been started on IV lasix, IV clindamycin emprically as he has allergy to penicillin and 2D echocardiogram has been ordered. 06/08/2022 Patient evaluated today sitting up in the chair. He reports breathing better has been able to ambulate into the restroom. Lower extremity edema has improved as well as erythema to the left lower extremity. He does have pedal edema on the left. Wound cultures are pending prelim showing gram negative bacilli. He continues on IV cefazolin with infectious disease consultation. Wound care has also evaluated the patient. IV Lasix has been decreased to Q12, negative 2.6 liters in the last 24 hours. Echocardiogram completed showing EF of 25 to 30%, dilated left ventricle, with moderate pulmonary hypertension, modeate mitral and tricuspid regurgitation and mild to moderate aortic regurgitation. He continues on 3L nasal cannula, no home oxygen, blood pressure 105/77, afebrile. 06/09/2022 Patient evaluated today resting in bed. at the bedside and is updated on hospital course. Lower extremity edema has improved he is down overall about 12 lbs although weight charting seems inaccurate. He does sill have shortness of breath when ambulating, he is hoping to increase activity. He may need subacute rehab on discharge. He is continued on IV lasix which has been increased to Q8 hour. Creatinine today is 1.7 and we will consult nephrology. Patient sees Dr Rinaldi outpatient.. We will also stop metolazone for now. Infectious disease has okay patient for discharge on keflex when he is stable otherwise. Patient received 60 meq of potassium we will given an additional 40meq today. He is afebrile, heart rate 70s, blood pressure 112/69, 97% room air. 06/10/2022 Patient breathing quietly while at rest. He has bilateral significant leg edema, left leg is warm and right more than the right leg. Ishan wrap on both legs. He is remaining on cefazolin and Lasix drip, he has decent urine output. 1 culture is growing gram-negative bacilli which is final. Creatinine 1.7 today. Liver enzymes back to normal 06/11/2022 Patient has significant urine output and with that his leg swelling is improved as well as left lower extremity cellulitis. His creatinine down to 1.6 today compared to 1.7 yesterday. He remains on IV Lasix drip with recommendation to switch to IV Lasix shots marco orrow per global human resources director. Also is on Aldactone and zaroxylin Also he is on cefazolin for cellulitis. Continue with home dose of Eliquis 2.5 06/12/2022 Patient today leg edema is significantly improved, more than 50% per my estimation. His cellulitis of the left lower 70s also improving while his on cefazolin. His Lasix drip in the morning was wished to by mouth Lasix 80 mg twice daily. As patient became a little bit more Alkalemic . Check labs in the morning Objective - Vital Signs Vital signs: Vital Signs Temp 98.3 F 06/12/22 08:00 Pulse 79 06/12/22 08:00 Resp 18 06/12/22 08:00 BP 112/68 06/12/22 08:00 Pulse Ox 95 06/12/22 08:00 FiO2 21 06/07/22 15:54 Intake & Output 06/11/22 06/12/22 06/12/22 18:59 06:59 18:59 Intake Total 700 73.667 360 Output Total 2225 2600 1000 Balance -8436 -5116.333 -691 Intake: Intake, IV Titration 100 73.667 Amount Furosemide 100 mg In 100 73.667 Sodium Chloride 0.9% 90 ml @ 10 MG/HR 10 mls/hr IV .Q10H [facility] Rx#: [id number] Oral 600 360 Output: Urine 2100 2600 1000 Post Void Residual 125 Other: Voiding Method Urinal Urinal - Exam -GENERAL: The patient is alert and oriented x3, not in any acute distress. Morbidly obese HEENT: Pupils are round and equally reacting to light. EOMI. No scleral icterus. No conjunctival pallor. Normocephalic, atraumatic. No pharyngeal erythema. No thyromegaly. CARDIOVASCULAR: S1 and S2 present. No murmurs, rubs, or gallops. PULMONARY: Chest is clear to auscultation, no wheezing or crackles. ABDOMEN: Soft, nontender, nondistended, normoactive bowel sounds. No palpable organomegaly. MUSCULOSKELETAL: No joint swelling or deformity. -EXTREMITIES: No cyanosis, clubbing, . bilateral pitting leg edema, left leg cellulitis with redness and warmth NEUROLOGICAL: Gross neurological examination did not reveal any focal deficits. SKIN: No rashes. no petechiae. - Labs CBC & Chem 7: 06/11/22 07:25 06/12/22 07:22 Labs: Abnormal Lab Results - Last 24 Hours (Table) 06/11/22 06/11/22 06/11/22 Range/Units 11:43 16:33 20:21 Sodium (137-145) mmol/L Potassium (3.5-5.1) mmol/L Chloride (98-107) mmol/L Carbon Dioxide (22-30) mmol/L BUN (9-20) mg/dL Creatinine (0.66-1.25) mg/dL Glucose (74-99) mg/dL POC Glucose (mg/dL) 201 H 176 H 190 H (70-110) mg/dL 06/12/22 06/12/22 Range/Units 06:08 07:22 Sodium 133 L (137-145) mmol/L Potassium 3.3 L (3.5-5.1) mmol/L Chloride 88 L (98-107) mmol/L Carbon Dioxide 38 H (22-30) mmol/L BUN 66 H (9-20) mg/dL Creatinine 1.54 H (0.66-1.25) mg/dL Glucose 144 H (74-99) mg/dL POC Glucose (mg/dL) 153 H (70-110) mg/dL Assessment and Plan Assessment: Left lower extremity cellulitis with sepsis with great toe wound Acute kidney injury, secondary to cardiorenal syndrome Acute on chronic Systolic heart failure Troponin leak Chronic kidney disease stage 3 Hyponatremia hypervolemic Hypokalemia secondary to diuresis Diabetes mellitus with hyperglycemia Elevated LFT's most likely from vascular congestion will monitor trends Chronic atrial fibrillation anticoagulated with eliquis Coronary artery disease status post stenting History of COPD / Asthma Hyperlipidemia Hypertension, currently normotensive Chronic peripheral vascular disease History B cell lymphoma underwent treatment in 2017 History of BPH Obesity Plan: This is a pleasant 72 years old male who presents with left lower extremity cellulitis and acute CHF and AKA high Continue with cefazolin, ID team on the case Continue with by mouth Lasix and monitor input and output and creatinine Cardiology and nephrology consult Labs and medication were reviewed.. Continue same treatment. Continue with symptomatic treatment. Resume home medication. Monitor lytes and vitals. DVT and GI prophylaxis. Further recommendations as per clinical course of the patient DVT prophylaxis: Eliquis GI Prophylaxis: Pepcid PT/OT: Pending Prognosis is guarded
[2022-06-12 16:28] LABS: Glucose,Whole Blood 215 mg/dL (70-110)
[2022-06-12] MEDS ORDERED: ACETAMINOPHEN TAB 325 MG TAB PO PRN (17:28)
[2022-06-12] MEDS: FUROSEMIDE 80 MG TAB PO SCH (17:29)
[2022-06-12 20:45] LABS: Glucose,Whole Blood 184 mg/dL (70-110)
[2022-06-12] MEDS: ATORVASTATIN 40 MG TAB PO SCH (20:46)
--- NOTE | 2022-06-12 20:51 | US ---
EXAMINATION TYPE: US venous doppler duplex LE DATE OF EXAM: 06/12/2022 8:36 PM COMPARISON: US 2020 CLINICAL HISTORY: r/o dvt. No hx of DVT per patient. Patient is on eliquis. Calves are swollen with r edness. SIDE PERFORMED: Bilateral TECHNIQUE: The lower extremity deep venous system is examined utilizing real time linear array sonog lelia with graded compression, doppler sonography and color-flow sonography. VESSELS IMAGED: Common Femoral Vein Deep Femoral Vein Greater Saphenous Vein * Femoral Vein Popliteal Vein Small Saphenous Vein * Proximal Calf Veins (* superficial vessels) Limited due to body habitus and edema. Right Leg: No evidence of DVT in veins imaged at this time. Limited visibility of prox calf veins du e to great amount of calf edema. Left Leg: No evidence of DVT in veins imaged at this time. Limited visibility of prox calf veins due to great amount of calf edema. IMPRESSION: No evidence of deep vein thrombosis in both legs. There is bilateral calf edema.
[2022-06-13 06:23] LABS: Glucose,Whole Blood 154 mg/dL (70-110)
[2022-06-13] MEDS: INSULIN ASPART (NovoLOG) 100 UNIT/ML VIAL SQ SCH ×4 (06:28→20:25)
[2022-06-13] MEDS: LEVOTHYROXINE 50 MCG TAB PO SCH (06:28)
[2022-06-13] MEDS: NITROGLYCERIN OINT 1 INCH/GM PACKET TOPICAL SCH (06:29)
[2022-06-13] MEDS: FLUTICASONE 110 MCG INHALER INHALATION SCH ×2 (07:55→20:43)
[2022-06-13 08:18] LABS: Calcium 8.8 mg/dL (8.4-10.2); Magnesium 2.1 mg/dL (1.6-2.3); Potassium 3.4 mmol/L (3.5-5.1); Total Bilirubin 1.8 mg/dL (0.2-1.3)
[2022-06-13 08:38] LABS: Basophils # (A) 0.1 k/uL (0-0.2); Basophils % (A) 1 %; Eosinophils # (A) 0.2 k/uL (0-0.7); Eosinophils % (A) 2 %; HCT 43.9 % (39.0-53.0); HGB 14.2 gm/dL (13.0-17.5); Hypochromasia Moderate; Lymphocytes # (A) 1.6 k/uL (1.0-4.8); Lymphocytes % (A) 21 %; MCH 32.4 pg (25.0-35.0); MCHC 32.3 g/dL (31.0-37.0); MCV 100.5 fL (80.0-100.0); Macrocytosis Slight; Mean Platelet Volume 8.9; Monocytes # (A) 0.6 k/uL (0-1.0); Monocytes % (A) 8 %; Neutrophils # (A) 4.8 k/uL (1.3-7.7); Neutrophils % (A) 64 %; Platelet Count 156 k/uL (150-450); Poikilocytosis Slight; RBC 4.37 m/uL (4.30-5.90); WBC 7.5 k/uL (3.8-10.6)
[2022-06-13] MEDS: FAMOTIDINE 20 MG TAB PO SCH (09:06)
[2022-06-13] MEDS: SPIRONOLACTONE 25 MG TAB PO SCH (09:06)
[2022-06-13] MEDS: FOLIC ACID 1 MG TAB PO SCH (09:06)
[2022-06-13] MEDS: APIXABAN 2.5 MG TABLET PO SCH ×2 (09:06→20:25)
[2022-06-13] MEDS: metOLazone 5 MG TAB PO SCH (09:07)
[2022-06-13] MEDS: LACOSAMIDE 50 MG TABLET PO SCH ×2 (09:07→20:25)
[2022-06-13] MEDS: allopurinoL 300 MG TAB PO SCH (09:07)
[2022-06-13] MEDS: BACITRACIN OINT 1 EACH PACKET TOPICAL SCH (09:07)
[2022-06-13] MEDS: FINASTERIDE 5 MG TAB PO SCH (09:07)
[2022-06-13] MEDS: FUROSEMIDE 80 MG TAB PO SCH ×2 (09:07→16:47)
[2022-06-13] MEDS: FLUTICASONE 50MCG/SPRAY NASAL 16GM EA NOSTRIL SCH ×2 (09:08→20:26)
[2022-06-13] MEDS: POTASSIUM CHLORIDE ER 20 MEQ TAB.ER PO SCH (09:09)
[2022-06-13] MEDS: NON FORMULARY DRUG (Empagliflozin [Jardiance] 10 MG Tablet) PO SCH (09:11)
[2022-06-13] MEDS ORDERED: POTASSIUM CHLORIDE ER 20 MEQ TAB.ER PO STA (09:49)
[2022-06-13] MEDS ORDERED: Magnesium Replacement Protocol 1 EACH MISC MISCELLANE PRN (09:49)
[2022-06-13] MEDS ORDERED: MAGNESIUM SULFATE-D5W PMX 1 GM in DEXTROSE/WATER 1 100ML.BAG IVPB SCH (10:00)
[2022-06-13 10:24] LABS: T4, Free (Free Thyroxine) 1.41 ng/dL (0.78-2.19)
--- NOTE | 2022-06-13 10:26 | P.PN ---
Subjective Patient is seen in follow-up for acute kidney injury on chronic kidney disease. On oral Lasix. Good urine output. Renal function fairly stable. Denies chest pain or shortness of breath. On room air. Blood pressure stable. Vital signs are stable. General: Awake. No acute distress. HEENT: Head exam is unremarkable. LUNGS: Breath sounds decreased. HEART: Rate and Rhythm are regular. ABDOMEN: Soft, no distention. EXTREMITITES: 1+ edema. Erythema noted. Objective - Vital Signs Vital signs: Vital Signs Temp 98 F 06/13/22 03:50 Pulse 72 06/13/22 03:50 Resp 16 06/13/22 03:50 BP 120/74 06/13/22 03:50 Pulse Ox 95 06/13/22 07:55 FiO2 21 06/07/22 15:54 Intake & Output 06/12/22 06/13/22 06/13/22 18:59 06:59 18:59 Intake Total 600 0 0 Output Total 1675 1650 Balance -1075 -1650 0 Intake: Oral 600 0 0 Output: Urine 1675 1650 Other: Voiding Method Urinal Urinal # Voids 1 # Bowel Movements 0 - Labs CBC & Chem 7: 06/13/22 07:29 06/13/22 07:29 Labs: Abnormal Lab Results - Last 24 Hours (Table) 06/12/22 06/12/22 06/12/22 Range/Units 11:55 16:26 20:38 MCV (80.0-100.0) fL RDW (11.5-15.5) % Sodium (137-145) mmol/L Potassium (3.5-5.1) mmol/L Chloride (98-107) mmol/L Carbon Dioxide (22-30) mmol/L BUN (9-20) mg/dL Creatinine (0.66-1.25) mg/dL Glucose (74-99) mg/dL POC Glucose (mg/dL) 199 H 215 H 184 H (70-110) mg/dL Total Bilirubin (0.2-1.3) mg/dL TSH (0.465-4.680) mIU/L 06/13/22 06/13/22 06/13/22 Range/Units 06:21 07:29 07:29 MCV 100.5 H (80.0-100.0) fL RDW 16.0 H (11.5-15.5) % Sodium 132 L (137-145) mmol/L Potassium 3.4 L (3.5-5.1) mmol/L Chloride 85 L (98-107) mmol/L Carbon Dioxide 39 H (22-30) mmol/L BUN 69 H (9-20) mg/dL Creatinine 1.61 H (0.66-1.25) mg/dL Glucose 156 H (74-99) mg/dL POC Glucose (mg/dL) 154 H (70-110) mg/dL Total Bilirubin 1.8 H (0.2-1.3) mg/dL TSH (0.465-4.680) mIU/L 06/13/22 Range/Units 07:29 MCV (80.0-100.0) fL RDW (11.5-15.5) % Sodium (137-145) mmol/L Potassium (3.5-5.1) mmol/L Chloride (98-107) mmol/L Carbon Dioxide (22-30) mmol/L BUN (9-20) mg/dL Creatinine (0.66-1.25) mg/dL Glucose (74-99) mg/dL POC Glucose (mg/dL) (70-110) mg/dL Total Bilirubin (0.2-1.3) mg/dL TSH 5.790 H (0.465-4.680) mIU/L Assessment and Plan Plan: Assessment: 1. Acute kidney injury mostly prerenal secondary to cardiorenal syndrome. Creatinine stable at 1.61 today. 2. Chronic kidney disease stage IIIB with baseline creatinine in the range of 1.2-1.4 secondary to nephrosclerosis and cardiorenal syndrome. No proteinuria on UA. 3. Hypokalemia from diuresis. 4. Hypervolemic hyponatremia. 5. Acute on chronic systolic CHF with ejection fraction of 25-30% with moderate mitral and tricuspid regurgitation. 6. Lower extremity cellulitis on antibiotics per ID. Plan: Maintain oral Lasix and metolazone. Maintain potassium supplementation. Additional 40 mEq today. Maintain fluid restriction. Avoid nephrotoxins. Continue to monitor renal function and urine output. I advised patient to maintain a low salt diet along with 40 ounce fluid restriction per day upon discharge. Repeat BMP and magnesium level 2-3 days postdischarge and follow up outpatient in 1 week. Likely going to rehab upon discharge.
--- NOTE | 2022-06-13 10:35 | P.PN ---
Subjective Progress Note Date: 06/12/22 Principal diagnosis: Bilateral lower extremity cellulitis Patient is a 71-year-old male presented to hospital with weakness and increasing shortness of breath increasing swelling redness to lower extremity, patient had been diagnosed with lower extremity cellulitis. On today's evaluation that is 06/12/2022, the patient continues to be afebrile, patient is did have some shortness of breath on exertion however the patient denies chest pain or cough no abdominal pain, the patient swelling and redness to the legs has decreased in intensity there is no open wound or drainage Objective - Vital Signs Vital signs: Vital Signs Temp 98.0 F 06/12/22 12:00 Pulse 63 06/12/22 12:00 Resp 16 06/12/22 12:00 BP 111/77 06/12/22 12:00 Pulse Ox 98 06/12/22 12:00 FiO2 21 06/07/22 15:54 Intake & Output 06/11/22 06/12/22 06/12/22 18:59 06:59 18:59 Intake Total 700 73.667 480 Output Total 2225 2600 1400 Balance -1525 -2526.333 -920 Intake: Intake, IV Titration 100 73.667 Amount Furosemide 100 mg In 100 73.667 Sodium Chloride 0.9% 90 ml @ 10 MG/HR 10 mls/hr IV .Q10H [facility] Rx#: [id number] Oral 600 480 Output: Urine 2100 2600 1400 Post Void Residual 125 Other: Voiding Method Urinal Urinal - Exam GENERAL DESCRIPTION: An elderly male lying in bed in no distress RESPIRATORY SYSTEM: Unlabored breathing , decreased breath sounds at bases HEART: S1 S2 regular rate and rhythm , ABDOMEN: Soft , no tenderness EXTREMITIES: Diffuse swelling bilateral lower extremity minimal redness no drainage - Labs CBC & Chem 7: 06/13/22 07:29 06/13/22 07:29 Labs: Abnormal Lab Results - Last 24 Hours (Table) 06/11/22 06/11/22 06/12/22 Range/Units 16:33 20:21 06:08 Sodium (137-145) mmol/L Potassium (3.5-5.1) mmol/L Chloride (98-107) mmol/L Carbon Dioxide (22-30) mmol/L BUN (9-20) mg/dL Creatinine (0.66-1.25) mg/dL Glucose (74-99) mg/dL POC Glucose (mg/dL) 176 H 190 H 153 H (70-110) mg/dL 06/12/22 06/12/22 Range/Units 07:22 11:55 Sodium 133 L (137-145) mmol/L Potassium 3.3 L (3.5-5.1) mmol/L Chloride 88 L (98-107) mmol/L Carbon Dioxide 38 H (22-30) mmol/L BUN 66 H (9-20) mg/dL Creatinine 1.54 H (0.66-1.25) mg/dL Glucose 144 H (74-99) mg/dL POC Glucose (mg/dL) 199 H (70-110) mg/dL Assessment and Plan (1) Bilateral lower leg cellulitis Current Visit: No Status: Acute Code(s): L03.116 - CELLULITIS OF LEFT LOWER LIMB; L03.115 - CELLULITIS OF RIGHT LOWER LIMB SNOMED Code(s): 393532672 Plan: 1patient presented hospital with increasing swelling lower extremity especially left leg with some erythema slight pain and warmth concerning for cellulitis with diffuse swelling redness and features of fluid overload likely representing streptococcal cellulitis. 2Ace wrap to the leg to keep the swelling down. 3the patient is slowly clinically improving and will continue with cefazolin 2 g every 8 hours with the plan to finish therapy with oral antibiotics. Time with Patient: Less than 30
[2022-06-13 11:46] LABS: Glucose,Whole Blood 215 mg/dL (70-110)
--- NOTE | 2022-06-13 13:14 | P.PN ---
Subjective Progress Note Date: 06/13/22 HISTORY OF PRESENT ILLNESS: The patient is a 72-year-old male who is currently admitted to the hospital with acute CHF exacerbation and cellulitis. New onset of cardiomyopathy with ejection fraction at 20-25%. He was diuresed to be a furosemide drip. No weight documented as of 06/12/2022, but was down 7 kg as of yesterday. The patient was interviewed and examined sitting comfortably in bed. He states he had difficulty sleeping overnight due to leg discomfort. No difficulty breathing. No chest pain or chest pressure. 06/13/2022 Patient examined this morning at the bedside. Patient denies chest pain or pressure. Denies SOB. He remains on oral lasix. PHYSICAL EXAM: VITAL SIGNS: Reviewed. GENERAL: Well-developed in no acute distress. NECK: Supple. No JVD or thyromegaly LUNGS: Respirations even and unlabored. Lungs essentially clear to auscultation bilaterally. HEART: Irregular rate and rhythm. S1 and S2 heard. EXTREMITIES: Normal range of motion. No clubbing or cyanosis. Peripheral pulses intact. 2+ lower extremity edema ASSESSMENT: Acute on chronic heart failure with reduced EF, 20-25% Abnormal troponins, flat, ACS ruled out New onset cardiomyopathy History of coronary artery disease Hypertension Cellulitis Persistent atrial fibrillation Acute kidney injury PLAN: Continue current cardiac medications Patient continues to have MARIALUISA. Will plan for outpatient cardiac cath Patient to follow up with Dr. Talley Nurse practitioner note has been reviewed by physician. Signing provider agrees with the documented findings, assessment, and plan of care. Objective - Vital Signs Vital signs: Vital Signs Temp 97.9 F 06/13/22 11:20 Pulse 86 06/13/22 11:20 Resp 16 06/13/22 11:20 BP 111/77 06/13/22 11:20 Pulse Ox 94 L 06/13/22 11:20 FiO2 21 06/07/22 15:54 Intake & Output 06/12/22 06/13/22 06/13/22 18:59 06:59 18:59 Intake Total 600 0 0 Output Total 1675 1650 300 Balance -8643 -1650 -300 Intake: Oral 600 0 0 Output: Urine 2055 1650 300 Other: Voiding Method Urinal Urinal Urinal # Voids 1 # Bowel Movements 0 - Labs CBC & Chem 7: 06/13/22 07:29 06/13/22 07:29 Labs: Abnormal Lab Results - Last 24 Hours (Table) 06/12/22 06/12/22 06/13/22 Range/Units 16:26 20:38 06:21 MCV (80.0-100.0) fL RDW (11.5-15.5) % Sodium (137-145) mmol/L Potassium (3.5-5.1) mmol/L Chloride (98-107) mmol/L Carbon Dioxide (22-30) mmol/L BUN (9-20) mg/dL Creatinine (0.66-1.25) mg/dL Glucose (74-99) mg/dL POC Glucose (mg/dL) 215 H 184 H 154 H (70-110) mg/dL Total Bilirubin (0.2-1.3) mg/dL TSH (0.465-4.680) mIU/L 06/13/22 06/13/22 06/13/22 Range/Units 07:29 07:29 07:29 MCV 100.5 H (80.0-100.0) fL RDW 16.0 H (11.5-15.5) % Sodium 132 L (137-145) mmol/L Potassium 3.4 L (3.5-5.1) mmol/L Chloride 85 L (98-107) mmol/L Carbon Dioxide 39 H (22-30) mmol/L BUN 69 H (9-20) mg/dL Creatinine 1.61 H (0.66-1.25) mg/dL Glucose 156 H (74-99) mg/dL POC Glucose (mg/dL) (70-110) mg/dL Total Bilirubin 1.8 H (0.2-1.3) mg/dL TSH 5.790 H (0.465-4.680) mIU/L 06/13/22 Range/Units 11:44 MCV (80.0-100.0) fL RDW (11.5-15.5) % Sodium (137-145) mmol/L Potassium (3.5-5.1) mmol/L Chloride (98-107) mmol/L Carbon Dioxide (22-30) mmol/L BUN (9-20) mg/dL Creatinine (0.66-1.25) mg/dL Glucose (74-99) mg/dL POC Glucose (mg/dL) 215 H (70-110) mg/dL Total Bilirubin (0.2-1.3) mg/dL TSH (0.465-4.680) mIU/L Microbiology - Last 24 Hours (Table) 06/07/22 Unknown Gram Stain - Final Toe - Right First Wound Culture - Final
--- NOTE | 2022-06-13 15:17 | P.DS ---
Providers Date of admission: 06/06/22 19:53 Attending physician: Paris Kwan Consults: 06/06/22 19:53 Consult Physician Urgent Consulting Provider: [facility] Consult Reason/Comments: Non-STEMI Do you want consulting provider notified?: Yes 06/07/22 11:34 Consult Physician Routine Consulting Provider: Kaylynn Spears Consult Reason/Comments: Cellulitis Do you want consulting provider notified?: Yes 06/09/22 11:25 Consult Physician Urgent Consulting Provider: Jono Figueredo Consult Reason/Comments: elevated cr Do you want consulting provider notified?: Yes Primary care physician: [facility] Course: Diagnosis Left lower extremity cellulitis with sepsis with great toe wound Acute kidney injury, secondary to cardiorenal syndrome Acute on chronic Systolic heart failure Troponin leak Chronic kidney disease stage 3 Hyponatremia hypervolemic Hypokalemia secondary to diuresis Diabetes mellitus with hyperglycemia Elevated LFT's most likely from vascular congestion will monitor trends Chronic atrial fibrillation anticoagulated with eliquis Coronary artery disease status post stenting History of COPD / Asthma Hyperlipidemia Hypertension, currently normotensive Chronic peripheral vascular disease History B cell lymphoma underwent treatment in 2017 History of BPH Obesity Do Not Resuscitate Discharge Disposition Patient is stable for discharge to rehab, prognosis is guarded. He will need to follow up with nephrology in 1 week outpatient and repeat BMP and magnesium in 2 to 3 days. Patient has been transitioned to oral lasix and will see cardiology outpatient with plans for possible cardiac catheterization. He Will also see PCP in 2 to 3 days. Patient will finish a course of antibiotics with oral keflex. Hospital Course This is a 71-year-old male with medical history significant for issue fibrillation antiplatelet with eliquis, asthma, heart failure, hyperlipidemia, hypertension, chronic PVD, diabetes, neuropathy, B cell lymphoma, chronic kidney disease. He presents to the hospital with concern for increase peripheral edema as well as shortness of breath has been increasing over the last few months. There was an episode of chest tightness midsternal prior to discharge he denies "" chest pain. There's been no fever or chills no cough. Patient does also report urinary retention. Patient also presents with left lower extremity cellulitis in the left and had maggots in his great big toe. Infectious disease had felt the patient and he received IV cefazolin 1 patient will be transitioned to oral antibiotics and discharge for a short course of therapy. On admission his chest x-ray showed mild pulmonary vascular congestion with started on IV Lasix. Pro BNP was 14,200. He did have mildly elevated troponins. He was admitted for CHF exacerbation. Echocardiogram was completed showing an ejection fraction of 25-30% with mild left ventricular dilation, moderate mitral and tricuspid regurgitation, [id number] aortic regurgitation. His echocardiogram completed in 2020 showed an EF of 50-55%. Patient diuresed on patient with IV Lasix and was also placed on insulin drip over the weekend. He has been transitioned to oral Lasix 80 mg twice a day which is increased from his home dose. Overall patient is down about 30 pounds. His peripheral edema has definitely improved. He was able to transition off of the nasal cannula. He also did present with a creatinine of 0.93 and was evaluated by nephrology for acute on chronic kidney failure. He will follow-up outpatient one week with nephrology. diagnostics Venous Doppler negative for bilateral DVT Elevated LFTs have improved alk phos is 133, AST and ALT of normalized. TSH 5.790, free T4 1.41. 06/13/2022 Patient is evaluated today in the chair. Plans are for discharge to rehab. He reports significant improvement in his shortness of breath and denies any chest pain. He is urinating without difficulty and has had been having bowel movements. No nausea vomiting or diarrhea noted. Improvement in his peripheral edema. Discharge recommendations as above with nephrology cardiology and primary care. Lungs are clear, S1-S2 auscultated is atrial fibrillation with controlled rate. Abdomen is soft and nontender. Peripheral edema is nonpitting. He does have chronic hyperpigmentation bilateral lower extremity. Focal neurological exam is negative. Patient is on room air. Labs today showing white count 7.5, hemoglobin 14.2, sodium 132, potassium 3.4, CO2 39, BUN 69, creatinine 1.61, blood glucose in the 150s, magnesium 1.8. Patient did receive 60 Meqs oral potassium and 2 g of IV magnesium today. He has remained afebrile, heart rate 86, blood pressure 111/77, 94% room air. Please see medication reconciliation for a list of current medication. Thank you for allowing us to participate in the care of this patient. The impression and plan of care has been dictated by Alisha Gardner, Nurse Practitioner as directed. Dr. Domenica MD I have performed a history and physical examination and medical decision making of this patient, discussed the same with the dictator, and agree with the dictators assessment and plan as written, documented as a scribe. Based on total visit time, I have performed more than 50% of this visit. Patient Condition at Discharge: Fair Plan - Discharge Summary Discharge Rx Participant: No New Discharge Prescriptions: New Potassium Chloride ER [K-Dur 20] 20 meq PO DAILY tab Furosemide [Lasix] 80 mg PO BID@0900,1600 tab INSULIN ASPART (NovoLOG) [NovoLOG (formulary)] 0 unit SQ ACHS each Albuterol Sulfate [Proair Hfa] 1 - 2 puff INHALATION Q6HR PRN #8.5 gm PRN Reason: Shortness Of Breath Or Wheezing Acetaminophen Tab [Tylenol] 650 mg PO Q6HR PRN tab PRN Reason: Fever And/ Or Pain Albuterol Nebulized [Ventolin Nebulized] 2.5 mg INHALATION RT-Q6H PRN ml PRN Reason: Shortness Of Breath Luliconazole [Luzu 1%] 1 applic TOPICAL BID #60 gram metOLazone [Zaroxolyn] 5 mg PO DAILY tab Lacosamide [Vimpat] 100 mg PO BID #8 tab Continue Finasteride 5 mg PO DAILY Oxybutynin Chloride 10 mg PO DAILY Fluticasone Nasal [place] [Flonase Nasal [place]] 1 spray EA NOSTRIL BID Nitroglycerin Sl Tabs [Nitrostat] 0.4 mg SL Q5M PRN PRN Reason: Chest Pain allopurinoL [Zyloprim] 300 mg PO DAILY Famotidine [Pepcid] 20 mg PO Q12HR tab Empagliflozin [Jardiance] 10 mg PO DAILY Dulaglutide [Trulicity] 0.75 mg SQ RODRIGUEZ Beclomethasone Dip 80 Mcg/Puff [Qvar 80 mcg] 1 puff INHALATION RT-BID Atorvastatin [Lipitor] 40 mg PO HS Apixaban [Eliquis] 2.5 mg PO BID Spironolactone 25 mg PO DAILY Levothyroxine Sodium [Synthroid] 50 mcg PO DAILY Folic Acid 1 mg PO DAILY Ergocalciferol [Vitamin D2 (1250 Mcg = 80348 Iu)] 1,250 mcg PO Q14D calcitrioL [Calcitriol] 0.25 mcg PO MOFR Petrolatum, White [Aquaphor] 1 applic TOPICAL BID PRN PRN Reason: Dry Skin Discontinued Clotrimazole Cream [Lotrimin Cream] 1 applic TOPICAL BID PRN PRN Reason: FUNGAL INFECTION Lacosamide [Vimpat] 100 mg PO BID Albuterol Inhaler [Ventolin Hfa Inhaler] 2 puff INHALATION RT-Q6H PRN PRN Reason: Shortness Of Breath Furosemide [Lasix] 40 mg PO BID Discharge Medication List Finasteride 5 mg PO DAILY 04/18/14 [History] Fluticasone Nasal [place] [Flonase Nasal [place]] 1 spray EA NOSTRIL BID 10/18/19 [History] Oxybutynin Chloride 10 mg PO DAILY 10/18/19 [History] Nitroglycerin Sl Tabs [Nitrostat] 0.4 mg SL Q5M PRN 01/13/21 [History] allopurinoL [Zyloprim] 300 mg PO DAILY 01/13/21 [History] Famotidine [Pepcid] 20 mg PO Q12HR tab 01/18/21 [Rx] Apixaban [Eliquis] 2.5 mg PO BID 06/06/22 [History] Atorvastatin [Lipitor] 40 mg PO HS 06/06/22 [History] Beclomethasone Dip 80 Mcg/Puff [Qvar 80 mcg] 1 puff INHALATION RT-BID 06/06/22 [History] Dulaglutide [Trulicity] 0.75 mg SQ RODRIGUEZ 06/06/22 [History] Empagliflozin [Jardiance] 10 mg PO DAILY 06/06/22 [History] Ergocalciferol [Vitamin D2 (1250 Mcg = 28846 Iu)] 1,250 mcg PO Q14D 06/06/22 [History] Folic Acid 1 mg PO DAILY 06/06/22 [History] Levothyroxine Sodium [Synthroid] 50 mcg PO DAILY 06/06/22 [History] Petrolatum, White [Aquaphor] 1 applic TOPICAL BID PRN 06/06/22 [History] Spironolactone 25 mg PO DAILY 06/06/22 [History] calcitrioL [Calcitriol] 0.25 mcg PO MOFR 06/06/22 [History] Acetaminophen Tab [Tylenol] 650 mg PO Q6HR PRN tab 06/13/22 [Rx] Albuterol Nebulized [Ventolin Nebulized] 2.5 mg INHALATION RT-Q6H PRN ml 06/13/22 [Rx] Albuterol Sulfate [Proair Hfa] 1 - 2 puff INHALATION Q6HR PRN #8.5 gm 06/13/22 [Rx] Furosemide [Lasix] 80 mg PO BID@0900,1600 tab 06/13/22 [Rx] INSULIN ASPART (NovoLOG) [NovoLOG (formulary)] 0 unit SQ ACHS each 06/13/22 [Rx] Lacosamide [Vimpat] 100 mg PO BID #8 tab 06/13/22 [Rx] Luliconazole [Luzu 1%] 1 applic TOPICAL BID #60 gram 06/13/22 [Rx] Potassium Chloride ER [K-Dur 20] 20 meq PO DAILY tab 06/13/22 [Rx] metOLazone [Zaroxolyn] 5 mg PO DAILY tab 06/13/22 [Rx] Follow up Appointment(s)/Referral(s): [facility], [NON-STAFF] - Migue Hicks III, MD [Primary Care Provider] - 1-2 days Jono Figueredo DO [STAFF PHYSICIAN] - 1 Week Marcelo Bar MD [STAFF PHYSICIAN] - 1 Week Ambulatory/Diagnostic Orders: Basic Metabolic Panel [LAB.AMB] Time Frame: 2 Days, Location: None Selected Magnesium [LAB.AMB] Time Frame: 2 Days, Location: None Selected Activity/Diet/Wound Care/Special Instructions: Continue fluid restriction 40 ounces of fluid restriction daily (every 24 hours) Repeat BMP and magnesium in 2-3 days Follow up with primary care on discharge Follow up with Dr Figueredo for nephrology in 1 week post discharge Follow up with DR CEE Bar with [facility]ology associates in 1-2 weeks Continue with daily weight and keep log for follow up appointment Complete antibiotic therapy for cellulitis Discharge Disposition: TRANSFER TO SNF/ECF
[2022-06-13 16:43] LABS: Glucose,Whole Blood 246 mg/dL (70-110)
[2022-06-13 20:12] LABS: Glucose,Whole Blood 213 mg/dL (70-110)
[2022-06-13] MEDS: ATORVASTATIN 40 MG TAB PO SCH (20:25)
[2022-06-13 21:08] VITALS: TEMP 97.9
[2022-06-14 06:08] LABS: Glucose,Whole Blood 154 mg/dL (70-110)
[2022-06-14] MEDS: LEVOTHYROXINE 50 MCG TAB PO SCH (06:12)
[2022-06-14] MEDS: INSULIN ASPART (NovoLOG) 100 UNIT/ML VIAL SQ SCH ×2 (06:12→12:26)
[2022-06-14 07:37] VITALS: BP 105/67; PULSE 78; RESP 18
--- NOTE | 2022-06-14 08:02 | P.PN ---
Subjective Progress Note Date: 06/13/22 Principal diagnosis: Bilateral lower extremity cellulitis Patient is a 71-year-old male presented to hospital with weakness and increasing shortness of breath increasing swelling redness to lower extremity, patient had been diagnosed with lower extremity cellulitis. On today's evaluation that is 06/13/2022, the patient denies any fever or any chills, patient is breathing slightly comfortably and denies chest pain or cough no abdominal pain, the patient swelling and redness to the legs has decreased in intensity there is no open wound or drainage Objective - Vital Signs Vital signs: Vital Signs Temp 98 F 06/13/22 03:50 Pulse 72 06/13/22 03:50 Resp 16 06/13/22 03:50 BP 120/74 06/13/22 03:50 Pulse Ox 95 06/13/22 07:55 FiO2 21 06/07/22 15:54 Intake & Output 06/12/22 06/13/22 06/13/22 18:59 06:59 18:59 Intake Total 600 0 0 Output Total 1675 1650 Balance -1075 -1650 0 Intake: Oral 600 0 0 Output: Urine 1135 1650 Other: Voiding Method Urinal Urinal # Voids 1 # Bowel Movements 0 - Exam GENERAL DESCRIPTION: An elderly male lying in bed in no distress RESPIRATORY SYSTEM: Unlabored breathing , decreased breath sounds at bases HEART: S1 S2 regular rate and rhythm , ABDOMEN: Soft , no tenderness EXTREMITIES: Diffuse swelling bilateral lower extremity minimal redness no d rainage - Labs CBC & Chem 7: 06/13/22 07:29 06/13/22 07:29 Labs: Abnormal Lab Results - Last 24 Hours (Table) 06/12/22 06/12/22 06/12/22 Range/Units 11:55 16:26 20:38 MCV (80.0-100.0) fL RDW (11.5-15.5) % Sodium (137-145) mmol/L Potassium (3.5-5.1) mmol/L Chloride (98-107) mmol/L Carbon Dioxide (22-30) mmol/L BUN (9-20) mg/dL Creatinine (0.66-1.25) mg/dL Glucose (74-99) mg/dL POC Glucose (mg/dL) 199 H 215 H 184 H (70-110) mg/dL Total Bilirubin (0.2-1.3) mg/dL TSH (0.465-4.680) mIU/L 06/13/22 06/13/22 06/13/22 Range/Units 06:21 07:29 07:29 MCV 100.5 H (80.0-100.0) fL RDW 16.0 H (11.5-15.5) % Sodium 132 L (137-145) mmol/L Potassium 3.4 L (3.5-5.1) mmol/L Chloride 85 L (98-107) mmol/L Carbon Dioxide 39 H (22-30) mmol/L BUN 69 H (9-20) mg/dL Creatinine 1.61 H (0.66-1.25) mg/dL Glucose 156 H (74-99) mg/dL POC Glucose (mg/dL) 154 H (70-110) mg/dL Total Bilirubin 1.8 H (0.2-1.3) mg/dL TSH (0.465-4.680) mIU/L 06/13/22 Range/Units 07:29 MCV (80.0-100.0) fL RDW (11.5-15.5) % Sodium (137-145) mmol/L Potassium (3.5-5.1) mmol/L Chloride (98-107) mmol/L Carbon Dioxide (22-30) mmol/L BUN (9-20) mg/dL Creatinine (0.66-1.25) mg/dL Glucose (74-99) mg/dL POC Glucose (mg/dL) (70-110) mg/dL Total Bilirubin (0.2-1.3) mg/dL TSH 5.790 H (0.465-4.680) mIU/L Assessment and Plan (1) Bilateral lower leg cellulitis Current Visit: No Status: Acute Code(s): L03.116 - CELLULITIS OF LEFT LOWER LIMB; L03.115 - CELLULITIS OF RIGHT LOWER LIMB SNOMED Code(s): 975410813 Plan: 1patient presented hospital with increasing swelling lower extremity especially left leg with some erythema slight pain and warmth concerning for cellulitis with diffuse swelling redness and features of fluid overload likely representing streptococcal cellulitis. 2patient to continue with Ishan wrap to the leg to keep the swelling down. 3the patient has shown clinical improvement with cefazolin 2 g every 8 hours with the plan to finish therapy with oral Keflex 7 days discussed with the LINING PRINTER for admitting team working on discharge Time with Patient: Less than 30
[2022-06-14] MEDS: FLUTICASONE 110 MCG INHALER INHALATION SCH (08:24)
[2022-06-14 08:45] LABS: Calcium 8.5 mg/dL (8.4-10.2); Magnesium 2.2 mg/dL (1.6-2.3); Potassium 3.4 mmol/L (3.5-5.1)
[2022-06-14] MEDS ORDERED: POTASSIUM CHLORIDE ER 20 MEQ TAB.ER PO STA (08:46)
[2022-06-14] MEDS: FOLIC ACID 1 MG TAB PO SCH (09:24)
[2022-06-14] MEDS: FUROSEMIDE 80 MG TAB PO SCH (09:24)
[2022-06-14] MEDS: SPIRONOLACTONE 25 MG TAB PO SCH (09:24)
[2022-06-14] MEDS: FINASTERIDE 5 MG TAB PO SCH (09:24)
[2022-06-14] MEDS: APIXABAN 2.5 MG TABLET PO SCH (09:24)
[2022-06-14] MEDS: FAMOTIDINE 20 MG TAB PO SCH (09:24)
[2022-06-14] MEDS: POTASSIUM CHLORIDE ER 20 MEQ TAB.ER PO SCH (09:24)
[2022-06-14] MEDS: allopurinoL 300 MG TAB PO SCH (09:24)
[2022-06-14] MEDS: BACITRACIN OINT 1 EACH PACKET TOPICAL SCH (09:25)
[2022-06-14] MEDS: metOLazone 5 MG TAB PO SCH (09:25)
[2022-06-14] MEDS: LACOSAMIDE 50 MG TABLET PO SCH (09:25)
[2022-06-14] MEDS: FLUTICASONE 50MCG/SPRAY NASAL 16GM EA NOSTRIL SCH (09:26)
[2022-06-14 11:32] LABS: Glucose,Whole Blood 198 mg/dL (70-110)
--- NOTE | 2022-06-14 11:49 | P.DS ---
Providers Date of admission: 06/06/22 19:53 Attending physician: Paris Kwan Consults: 06/06/22 19:53 Consult Physician Urgent Consulting Provider: [facility] Consult Reason/Comments: Non-STEMI Do you want consulting provider notified?: Yes 06/07/22 11:34 Consult Physician Routine Consulting Provider: Kaylynn Spears Consult Reason/Comments: Cellulitis Do you want consulting provider notified?: Yes 06/09/22 11:25 Consult Physician Urgent Consulting Provider: Jono Figueredo Consult Reason/Comments: elevated cr Do you want consulting provider notified?: Yes Primary care physician: [facility] Course: Diagnosis Left lower extremity cellulitis with sepsis with great toe wound Acute kidney injury, secondary to cardiorenal syndrome Acute on chronic Systolic heart failure Troponin leak Chronic kidney disease stage 3 Hyponatremia hypervolemic Hypokalemia secondary to diuresis Diabetes mellitus with hyperglycemia Elevated LFT's most likely from vascular congestion will monitor trends Chronic atrial fibrillation anticoagulated with eliquis Coronary artery disease status post stenting History of COPD / Asthma Hyperlipidemia Hypertension, currently normotensive Chronic peripheral vascular disease History B cell lymphoma underwent treatment in 2017 History of BPH Obesity Do Not Resuscitate Discharge Disposition Patient is stable for discharge to rehab, prognosis is guarded. He will need to follow up with nephrology in 1 week outpatient and repeat BMP and magnesium in 2 to 3 days. Patient has been transitioned to oral lasix and will see cardiology outpatient with plans for possible cardiac catheterization. He Will also see PCP in 2 to 3 days. Patient will finish a course of antibiotics with oral keflex. Hospital Course This is a 71-year-old male with medical history significant for issue fibrillation antiplatelet with eliquis, asthma, heart failure, hyperlipidemia, hypertension, chronic PVD, diabetes, neuropathy, B cell lymphoma, chronic kidney disease. He presents to the hospital with concern for increase peripheral edema as well as shortness of breath has been increasing over the last few months. There was an episode of chest tightness midsternal prior to discharge he denies "" chest pain. There's been no fever or chills no cough. Patient does also report urinary retention. Patient also presents with left lower extremity cellulitis in the left and had maggots in his great big toe. Infectious disease had felt the patient and he received IV cefazolin 1 patient will be transitioned to oral antibiotics and discharge for a short course of therapy. On admission his chest x-ray showed mild pulmonary vascular congestion with started on IV Lasix. Pro BNP was 14,200. He did have mildly elevated troponins. He was admitted for CHF exacerbation. Echocardiogram was completed showing an ejection fraction of 25-30% with mild left ventricular dilation, moderate mitral and tricuspid regurgitation, [id number] aortic regurgitation. His echocardiogram completed in 2020 showed an EF of 50-55%. Patient diuresed on patient with IV Lasix and was also placed on insulin drip over the weekend. He has been transitioned to oral Lasix 80 mg twice a day which is increased from his home dose. Overall patient is down about 30 pounds. His peripheral edema has definitely improved. He was able to transition off of the nasal cannula. He also did present with a creatinine of 0.93 and was evaluated by nephrology for acute on chronic kidney failure. He will follow-up outpatient one week with nephrology. diagnostics Venous Doppler negative for bilateral DVT Elevated LFTs have improved alk phos is 133, AST and ALT of normalized. TSH 5.790, free T4 1.41. 06/13/2022 Patient is evaluated today in the chair. Plans are for discharge to rehab. He reports significant improvement in his shortness of breath and denies any chest pain. He is urinating without difficulty and has had been having bowel movements. No nausea vomiting or diarrhea noted. Improvement in his peripheral edema. Discharge recommendations as above with nephrology cardiology and primary care. Lungs are clear, S1-S2 auscultated is atrial fibrillation with controlled rate. Abdomen is soft and nontender. Peripheral edema is nonpitting. He does have chronic hyperpigmentation bilateral lower extremity. Focal neurological exam is negative. Patient is on room air. Labs today showing white count 7.5, hemoglobin 14.2, sodium 132, potassium 3.4, CO2 39, BUN 69, creatinine 1.61, blood glucose in the 150s, magnesium 1.8. Patient did receive 60 Meqs oral potassium and 2 g of IV magnesium today. He has remained afebrile, heart rate 86, blood pressure 111/77, 94% room air. 06/14/2022 Patient is pending auth for discharge to [facility]. No acute events overnight. Today potassium is 3.4, sodium 132, creatinine has improved down to 1.47. Patient is given 60 MEQ of potassium today and will plan for repeat labs in 2 days outpatient, he will discharge on oral potassium daily. Patient will continue on 7 more days of oral keflex. He denies chest pain, no shortness of breath at rest. Lower extremity edema is stable. Patient remains afebrile, heart rate 78, blood pressure 105/67, 98% room air. Lungs are clear, S1 S2 auscultated, his abdomen is soft and nontender, normoactive bowel sounds. Focal neurological exam is negative. Medically patient is ready for discharge to rehab today. Follow up with primary care, cardiology, nephrology, ID outpatient. He will discharge on fluid restriction 40 ounces in 24 hour period. Please see medication reconciliation for a list of current medication. Thank you for allowing us to participate in the care of this patient. The impression and plan of care has been dictated by Alisha Gardner, Nurse Practitioner as directed. Dr. Domenica MD I have performed a history and physical examination and medical decision making of this patient, discussed the same with the dictator, and agree with the dictators assessment and plan as written, documented as a scribe. Based on total visit time, I have performed more than 50% of this visit. Patient Condition at Discharge: Fair Plan - Discharge Summary Discharge Rx Participant: No New Discharge Prescriptions: New Potassium Chloride ER [K-Dur 20] 20 meq PO DAILY tab Furosemide [Lasix] 80 mg PO BID@0900,1600 tab INSULIN ASPART (NovoLOG) [NovoLOG (formulary)] 0 unit SQ ACHS each Albuterol Sulfate [Proair Hfa] 1 - 2 puff INHALATION Q6HR PRN #8.5 gm PRN Reason: Shortness Of Breath Or Wheezing Acetaminophen Tab [Tylenol] 650 mg PO Q6HR PRN tab PRN Reason: Fever And/ Or Pain Albuterol Nebulized [Ventolin Nebulized] 2.5 mg INHALATION RT-Q6H PRN ml PRN Reason: Shortness Of Breath Luliconazole [Luzu 1%] 1 applic TOPICAL BID #60 gram metOLazone [Zaroxolyn] 5 mg PO DAILY tab Lacosamide [Vimpat] 100 mg PO BID #8 tab Cephalexin [Keflex] 500 mg PO Q6HR 7 Days #28 cap Continue Finasteride 5 mg PO DAILY Oxybutynin Chloride 10 mg PO DAILY Fluticasone Nasal [place] [Flonase Nasal [place]] 1 spray EA NOSTRIL BID Nitroglycerin Sl Tabs [Nitrostat] 0.4 mg SL Q5M PRN PRN Reason: Chest Pain allopurinoL [Zyloprim] 300 mg PO DAILY Famotidine [Pepcid] 20 mg PO Q12HR tab Empagliflozin [Jardiance] 10 mg PO DAILY Dulaglutide [Trulicity] 0.75 mg SQ RODRIGUEZ Beclomethasone Dip 80 Mcg/Puff [Qvar 80 mcg] 1 puff INHALATION RT-BID Atorvastatin [Lipitor] 40 mg PO HS Apixaban [Eliquis] 2.5 mg PO BID Spironolactone 25 mg PO DAILY Levothyroxine Sodium [Synthroid] 50 mcg PO DAILY Folic Acid 1 mg PO DAILY Ergocalciferol [Vitamin D2 (1250 Mcg = 52472 Iu)] 1,250 mcg PO Q14D calcitrioL [Calcitriol] 0.25 mcg PO MOFR Petrolatum, White [Aquaphor] 1 applic TOPICAL BID PRN PRN Reason: Dry Skin Discontinued Clotrimazole Cream [Lotrimin Cream] 1 applic TOPICAL BID PRN PRN Reason: FUNGAL INFECTION Lacosamide [Vimpat] 100 mg PO BID Albuterol Inhaler [Ventolin Hfa Inhaler] 2 puff INHALATION RT-Q6H PRN PRN Reason: Shortness Of Breath Furosemide [Lasix] 40 mg PO BID Discharge Medication List Finasteride 5 mg PO DAILY 04/18/14 [History] Fluticasone Nasal [place] [Flonase Nasal [place]] 1 spray EA NOSTRIL BID 10/18/19 [History] Oxybutynin Chloride 10 mg PO DAILY 10/18/19 [History] Nitroglycerin Sl Tabs [Nitrostat] 0.4 mg SL Q5M PRN 01/13/21 [History] allopurinoL [Zyloprim] 300 mg PO DAILY 01/13/21 [History] Famotidine [Pepcid] 20 mg PO Q12HR tab 01/18/21 [Rx] Apixaban [Eliquis] 2.5 mg PO BID 06/06/22 [History] Atorvastatin [Lipitor] 40 mg PO HS 06/06/22 [History] Beclomethasone Dip 80 Mcg/Puff [Qvar 80 mcg] 1 puff INHALATION RT-BID 06/06/22 [History] Dulaglutide [Trulicity] 0.75 mg SQ RODRIGUEZ 06/06/22 [History] Empagliflozin [Jardiance] 10 mg PO DAILY 06/06/22 [History] Ergocalciferol [Vitamin D2 (1250 Mcg = 43778 Iu)] 1,250 mcg PO Q14D 06/06/22 [History] Folic Acid 1 mg PO DAILY 06/06/22 [History] Levothyroxine Sodium [Synthroid] 50 mcg PO DAILY 06/06/22 [History] Petrolatum, White [Aquaphor] 1 applic TOPICAL BID PRN 06/06/22 [History] Spironolactone 25 mg PO DAILY 06/06/22 [History] calcitrioL [Calcitriol] 0.25 mcg PO MOFR 06/06/22 [History] Acetaminophen Tab [Tylenol] 650 mg PO Q6HR PRN tab 06/13/22 [Rx] Albuterol Nebulized [Ventolin Nebulized] 2.5 mg INHALATION RT-Q6H PRN ml 06/13/22 [Rx] Albuterol Sulfate [Proair Hfa] 1 - 2 puff INHALATION Q6HR PRN #8.5 gm 06/13/22 [Rx] Cephalexin [Keflex] 500 mg PO Q6HR 7 Days #28 cap 06/13/22 [Rx] Furosemide [Lasix] 80 mg PO BID@0900,1600 tab 06/13/22 [Rx] INSULIN ASPART (NovoLOG) [NovoLOG (formulary)] 0 unit SQ ACHS each 06/13/22 [Rx] Lacosamide [Vimpat] 100 mg PO BID #8 tab 06/13/22 [Rx] Luliconazole [Luzu 1%] 1 applic TOPICAL BID #60 gram 06/13/22 [Rx] Potassium Chloride ER [K-Dur 20] 20 meq PO DAILY tab 06/13/22 [Rx] metOLazone [Zaroxolyn] 5 mg PO DAILY tab 06/13/22 [Rx] Follow up Appointment(s)/Referral(s): Peggy Holman, [NON-STAFF] - As Needed [facility], [NON-STAFF] - Marcelo Bar MD [STAFF PHYSICIAN] - 1 Week Migue Hicks III, MD [Primary Care Provider] - 1-2 days Jono Figueredo DO [STAFF PHYSICIAN] - 1 Week Kaylynn Spears MD [STAFF PHYSICIAN] - 1 Week Ambulatory/Diagnostic Orders: Basic Metabolic Panel [LAB.AMB] Time Frame: 2 Days, Location: None Selected Magnesium [LAB.AMB] Time Frame: 2 Days, Location: None Selected Activity/Diet/Wound Care/Special Instructions: Continue fluid restriction 40 ounces of fluid restriction daily (every 24 hours) Repeat BMP and magnesium in 2-3 days Follow up with primary care on discharge Follow up with Dr Figueredo for nephrology in 1 week post discharge Follow up with DR CEE Bar with cardiology associates in 1-2 weeks Continue with daily weight and keep log for follow up appointment Complete antibiotic therapy for cellulitis Discharge Disposition: TRANSFER TO SNF/ECF
[2022-06-14] MEDS: NON FORMULARY DRUG (Empagliflozin [Jardiance] 10 MG Tablet) PO SCH (12:02)
[2022-06-14 13:32] VITALS: BMI 39.4
--- NOTE | 2022-06-14 13:55 | P.PN ---
Subjective Patient is seen in follow-up for acute kidney injury on chronic kidney disease. On oral Lasix. Good urine output. Renal function stable. Denies chest pain or shortness of breath. On room air. Blood pressure stable. No active complaints today. Vital signs are stable. General: Awake. No acute distress. HEENT: Head exam is unremarkable. LUNGS: Breath sounds decreased. HEART: Rate and Rhythm are regular. ABDOMEN: Soft, no distention. EXTREMITITES: 1+ edema. Erythema noted. Objective - Vital Signs Vital signs: Vital Signs Temp 97.9 F 06/14/22 07:36 Pulse 78 06/14/22 08:00 Resp 18 06/14/22 08:00 BP 105/67 06/14/22 07:36 Pulse Ox 93 L 06/14/22 07:36 FiO2 21 06/07/22 15:54 Intake & Output 06/13/22 06/14/22 06/14/22 18:59 06:59 18:59 Intake Total 236 240 118 Output Total 700 800 150 Balance -464 -560 -32 Weight 135.4 kg Intake: Oral 236 240 118 Output: Urine 700 800 150 Other: Voiding Method Urinal Urinal # Voids 1 - Labs CBC & Chem 7: 06/13/22 07:29 06/14/22 08:18 Labs: Abnormal Lab Results - Last 24 Hours (Table) 06/13/22 06/13/22 06/14/22 Range/Units 16:41 20:11 06:06 Sodium (137-145) mmol/L Potassium (3.5-5.1) mmol/L Chloride (98-107) mmol/L Carbon Dioxide (22-30) mmol/L BUN (9-20) mg/dL Creatinine (0.66-1.25) mg/dL Glucose (74-99) mg/dL POC Glucose (mg/dL) 246 H 213 H 154 H (70-110) mg/dL 06/14/22 06/14/22 Range/Units 08:18 11:30 Sodium 132 L (137-145) mmol/L Potassium 3.4 L (3.5-5.1) mmol/L Chloride 89 L (98-107) mmol/L Carbon Dioxide 35 H (22-30) mmol/L BUN 73 H (9-20) mg/dL Creatinine 1.47 H (0.66-1.25) mg/dL Glucose 195 H (74-99) mg/dL POC Glucose (mg/dL) 198 H (70-110) mg/dL Microbiology - Last 24 Hours (Table) 06/07/22 Unknown Gram Stain - Final Toe - Right First Wound Culture - Final Assessment and Plan Plan: Assessment: 1. Acute kidney injury mostly prerenal secondary to cardiorenal syndrome. Creatinine stable at 1.47 today. 2. Chronic kidney disease stage IIIB with baseline creatinine in the range of 1.2-1.4 secondary to nephrosclerosis and cardiorenal syndrome. No proteinuria on UA. 3. Hypokalemia from diuresis. Replaced. 4. Hypervolemic hyponatremia. Stable. 5. Acute on chronic systolic CHF with ejection fraction of 25-30% with moderate mitral and tricuspid regurgitation. 6. Lower extremity cellulitis on antibiotics per ID. Plan: Maintain oral Lasix and metolazone. Maintain potassium supplementation. Given additional 40 mEq today. Maintain fluid restriction. Avoid nephrotoxins. Continue to monitor renal function and urine output. I advised patient to maintain a low salt diet along with 40 ounce fluid restriction per day upon discharge. Repeat BMP and magnesium level 2-3 days postdischarge and follow up outpatient in 1 week. Going to rehab upon discharge.
== END 2022-06-14 13:40 | DRG 871 ==
LOC: EC 17:22 → 3SCARD 19:53
PROVIDERS: ADMIT Hospitalist; ATTEND Hospitalist
DX: A40.9 Streptococcal sepsis, unspecified (principal); I50.43 Acute on chronic combined systolic (congestive) and diastolic (congestive) heart failure; I13.0 Hypertensive heart and chronic kidney disease with heart failure and stage 1 through stage 4 chronic kidney disease, or unspecified chronic kidney disease; I48.19 Other persistent atrial fibrillation; L03.116 Cellulitis of left lower limb; E87.1 Hypo-osmolality and hyponatremia; N17.9 Acute kidney failure, unspecified; E87.4 Mixed disorder of acid-base balance; I42.8 Other cardiomyopathies; L03.115 Cellulitis of right lower limb; I50.9 Heart failure, unspecified; Z88.0 Allergy status to penicillin; J44.9 Chronic obstructive pulmonary disease, unspecified; E66.9 Obesity, unspecified; L97.522 Non-pressure chronic ulcer of other part of left foot with fat layer exposed; L97.512 Non-pressure chronic ulcer of other part of right foot with fat layer exposed; Z66 Do not resuscitate; L97.509 Non-pressure chronic ulcer of other part of unspecified foot with unspecified severity; N18.32 Chronic kidney disease, stage 3b; I25.10 Atherosclerotic heart disease of native coronary artery without angina pectoris; Z95.5 Presence of coronary angioplasty implant and graft; E11.65 Type 2 diabetes mellitus with hyperglycemia; Z79.01 Long term (current) use of anticoagulants; R79.89 Other specified abnormal findings of blood chemistry; E78.5 Hyperlipidemia, unspecified; E11.621 Type 2 diabetes mellitus with foot ulcer; Z85.72 Personal history of non-Hodgkin lymphomas; E86.1 Hypovolemia; E11.22 Type 2 diabetes mellitus with diabetic chronic kidney disease; E11.42 Type 2 diabetes mellitus with diabetic polyneuropathy; E11.51 Type 2 diabetes mellitus with diabetic peripheral angiopathy without gangrene; E87.6 Hypokalemia; T50.2X5A Adverse effect of carbonic-anhydrase inhibitors, benzothiadiazides and other diuretics, initial encounter; I08.3 Combined rheumatic disorders of mitral, aortic and tricuspid valves; I27.20 Pulmonary hypertension, unspecified; I45.10 Unspecified right bundle-branch block; M89.9 Disorder of bone, unspecified; I37.1 Nonrheumatic pulmonary valve insufficiency; N40.1 Benign prostatic hyperplasia with lower urinary tract symptoms; R33.8 Other retention of urine; F40.240 Claustrophobia; S90.412A Abrasion, left great toe, initial encounter; M10.9 Gout, unspecified; Z79.4 Long term (current) use of insulin; Z79.84 Long term (current) use of oral hypoglycemic drugs; Z79.890 Hormone replacement therapy; Z96.642 Presence of left artificial hip joint; Z79.899 Other long term (current) drug therapy; Z82.49 Family history of ischemic heart disease and other diseases of the circulatory system; Z82.5 Family history of asthma and other chronic lower respiratory diseases; Z83.3 Family history of diabetes mellitus; Z86.010 Personal history of colon polyps; Z92.21 Personal history of antineoplastic chemotherapy; Z86.14 Personal history of Methicillin resistant Staphylococcus aureus infection
CPT/HCPCS: 36415; 71046; 80048; 80053; 80061; 81003; 82247; 82607; 83605; 83735; 83880; 84132; 84439; 84443; 84484; 85025; 85610; 85730; 87070; 87205; 93005; 93308; 93970; 94640; 94760; 96374; 99285

== ENCOUNTER 2022-06-25 19:14 | Inpatient (IN) | payer BC, MEDICARE ==
[2022-06-25] MEDS ORDERED: SODIUM CHLORIDE 0.9% 1,000 ML IV STA (19:28)
[2022-06-25] MEDS ORDERED: SODIUM CHLORIDE 0.9% 500 ML 500 ML IV STA (19:28)
--- NOTE | 2022-06-25 19:43 | ED ---
Recheck HPI - General Chief Complaint: Recheck/Abnormal Lab/Rx Stated Complaint: Weakness, kidney failure Time Seen by Provider: 06/25/22 19:24 Source: patient Mode of arrival: EMS Limitations: physical limitation - Related Data Home Medications Medication Instructions Recorded Confirmed Finasteride 5 mg PO DAILY 04/18/14 06/25/22 Fluticasone Nasal [place] [Flonase 1 spray EA NOSTRIL BID@0900,1700 10/18/19 06/25/22 Nasal [place]] Nitroglycerin Sl Tabs [Nitrostat] 0.4 mg SL Q5M PRN 01/13/21 06/25/22 allopurinoL [Zyloprim] 300 mg PO DAILY 01/13/21 06/25/22 Apixaban [Eliquis] 2.5 mg PO BID@0900,1700 06/06/22 06/25/22 Beclomethasone Dip 80 Mcg/Puff 1 puff INHALATION RT-BID@0900,1700 06/06/22 06/25/22 [Qvar 80 mcg] Dulaglutide [Trulicity] 0.75 mg SQ RODRIGUEZ 06/06/22 06/25/22 Empagliflozin [Jardiance] 10 mg PO DAILY 06/06/22 06/25/22 Ergocalciferol [Vitamin D2 (1250 1,250 mcg PO Q14D 06/06/22 06/25/22 Mcg = [id number] Iu)] Folic Acid 1 mg PO DAILY 06/06/22 06/25/22 Levothyroxine Sodium [Synthroid] 50 mcg PO DAILY@0600 06/06/22 06/25/22 Spironolactone 25 mg PO DAILY 06/06/22 06/25/22 calcitrioL [Calcitriol] 0.25 mcg PO MOFR 06/06/22 06/25/22 Albuterol Sulfate [Proair Hfa] 1 puff INHALATION RT-Q6H PRN 06/25/22 06/25/22 Atorvastatin [Lipitor] 40 mg PO HS 06/25/22 06/25/22 Famotidine [Pepcid] 20 mg PO BID 06/25/22 06/25/22 Furosemide [Lasix] 80 mg PO BID@0900,1700 06/25/22 06/25/22 Insulin Glargine [Lantus Vial] 10 unit SQ HS 06/25/22 06/25/22 Lacosamide [Vimpat] 100 mg PO BID@0900,1700 06/25/22 06/25/22 Lactulose 20 gm PO DAILY 06/25/22 06/25/22 Magnesium Hydroxide [Milk of 2,400 mg PO DAILY 06/25/22 06/25/22 Magnesia] Magnesium Hydroxide [Milk of 2,400 mg PO Q48H PRN 06/25/22 06/25/22 Magnesia] Na Phos,M-B/Na Phos,Di-Ba [Fleet 133 ml RECTAL Q72H PRN 06/25/22 06/25/22 Adult] Oxybutynin Chloride [Oxybutynin 10 mg PO DAILY 06/25/22 06/25/22 Chloride ER] Prostat Sugar Free 30 ml PO DAILY 06/25/22 06/25/22 bisacodyL 10 mg RECTAL Q48H PRN 06/25/22 06/25/22 Previous Rx's Medication Instructions Recorded Acetaminophen Tab [Tylenol] 650 mg PO Q6HR PRN tab 06/13/22 Albuterol Nebulized [Ventolin 2.5 mg INHALATION RT-Q6H PRN ml 06/13/22 Nebulized] Potassium Chloride ER [K-Dur 20] 20 meq PO DAILY tab 06/13/22 metOLazone [Zaroxolyn] 5 mg PO DAILY tab 06/13/22 Allergies Allergy/AdvReac Type Severity Reaction Status Date / Time Penicillins Allergy Unknown Verified 06/25/22 19:48 Childhood/Patient went into a coma Review of Systems ROS Statement: Those systems with pertinent positive or pertinent negative responses have been documented in the HPI. ROS Other: All systems not noted in ROS Statement are negative. 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, CKD stage III, gout, back pain if stands too long, diverticular disease, benign colon polyps, BPH History of Any Multi-Drug Resistant Organisms: MRSA Date of last positivie culture/infection: 05/18/17 MDRO Source:: RIGHT LEG Past Surgical History: Heart Catheterization With Stent, Joint Replacement, Orthopedic Surgery, Tonsillectomy Additional Past Surgical History / Comment(s): 2013 PCI with 2 stents, infusaport R upper chest, 8 hand surgeries after injury in [place]-skin grafts/tendon repair-skin taken from L upper chest and bilateral ankle tendon donors, L total hip arthroplasty, colonoscopies/benign polyps. Past Anesthesia/Blood Transfusion Reactions: Previous Problems w/ Anesthesia Additional Past Anesthesia/Blood Transfusion Reaction / Comment(s): Difficulty waking with 2 surgeries performed while in the [employer] Date of Last Stent Placement:: 2013 Past Psychological History: No Psychological Hx Reported Smoking Status: Never smoker Past Alcohol Use History: Occasional Past Drug Use History: None Reported - Past Family History Mother Family Medical History: COPD, Diabetes Mellitus Additional Family Medical History / Comment(s): Mother of a [place] at the age of 61 yrs. She was a heavy smoker. Father History Unknown: Yes Family Medical History: Myocardial Infarction ([place]) Additional Family Medical History / Comment(s): Pt does not know father's medical history General Exam Limitations: physical limitation Course Vital Signs 06/25/22 06/25/22 19:30 20:41 Temperature 97.8 F Pulse Rate 98 75 Respiratory 18 18 Rate Blood Pressure 105/65 122/74 O2 Sat by Pulse 97 98 Oximetry Medical Decision Making - Lab Data Result diagrams: 06/25/22 20:12 06/25/22 20:12 Lab Results 06/25/22 06/25/22 06/25/22 Range/Units 20:12 20:12 20:12 WBC 8.2 (3.8-10.6) k/uL RBC 5.03 (4.30-5.90) m/uL Hgb 15.9 (13.0-17.5) gm/dL Hct 48.7 (39.0-53.0) % MCV 96.8 (80.0-100.0) fL MCH 31.6 (25.0-35.0) pg MCHC 32.7 (31.0-37.0) g/dL RDW 15.9 H (11.5-15.5) % Plt Count 198 (150-450) k/uL MPV 9.4 Neutrophils % 74 % Lymphocytes % 16 % Monocytes % 7 % Eosinophils % 1 % Basophils % 0 % Neutrophils # 6.0 (1.3-7.7) k/uL Lymphocytes # 1.3 (1.0-4.8) k/uL Monocytes # 0.6 (0-1.0) k/uL Eosinophils # 0.1 (0-0.7) k/uL Basophils # 0.0 (0-0.2) k/uL PT 12.0 (9.0-12.0) sec INR 1.1 (<1.2) APTT 27.7 (22.0-30.0) sec Sodium (137-145) mmol/L Potassium (3.5-5.1) mmol/L Chloride (98-107) mmol/L Carbon Dioxide (22-30) mmol/L Anion Gap mmol/L BUN (9-20) mg/dL Creatinine (0.66-1.25) mg/dL Est GFR (CKD-EPI)AfAm (>60 ml/min/1.73 sqM) Est GFR (CKD-EPI)NonAf (>60 ml/min/1.73 sqM) Glucose (74-99) mg/dL Plasma Lactic Acid Walter (0.7-2.0) mmol/L Calcium (8.4-10.2) mg/dL Phosphorus (2.5-4.5) mg/dL Magnesium (1.6-2.3) mg/dL Total Bilirubin (0.2-1.3) mg/dL AST (17-59) U/L ALT (4-49) U/L Alkaline Phosphatase (38-126) U/L Troponin I (0.000-0.034) ng/mL NT-Pro-B Natriuret Pep pg/mL Total Protein (6.3-8.2) g/dL Albumin (3.5-5.0) g/dL Urine Color Light Yellow Urine Appearance Clear (Clear) Urine pH 7.0 (5.0-8.0) Ur Specific [place] 1.009 (1.001-1.035) Urine Protein Negative (Negative) Urine Glucose (UA) 4+ H (Negative) Urine Ketones Negative (Negative) Urine Blood Negative (Negative) Urine Nitrite Negative (Negative) Urine Bilirubin Negative (Negative) Urine Urobilinogen <2.0 (<2.0) mg/dL Ur Leukocyte Esterase Negative (Negative) 06/25/22 06/25/22 06/25/22 Range/Units 20:12 20:12 20:12 WBC (3.8-10.6) k/uL RBC (4.30-5.90) m/uL Hgb (13.0-17.5) gm/dL Hct (39.0-53.0) % MCV (80.0-100.0) fL MCH (25.0-35.0) pg MCHC (31.0-37.0) g/dL RDW (11.5-15.5) % Plt Count (150-450) k/uL MPV Neutrophils % % Lymphocytes % % Monocytes % % Eosinophils % % Basophils % % Neutrophils # (1.3-7.7) k/uL Lymphocytes # (1.0-4.8) k/uL Monocytes # (0-1.0) k/uL Eosinophils # (0-0.7) k/uL Basophils # (0-0.2) k/uL PT (9.0-12.0) sec INR (<1.2) APTT (22.0-30.0) sec Sodium 129 L (137-145) mmol/L Potassium 2.9 L (3.5-5.1) mmol/L Chloride 80 L (98-107) mmol/L Carbon Dioxide 37 H (22-30) mmol/L Anion Gap 12 mmol/L BUN 120 H* (9-20) mg/dL Creatinine 1.76 H (0.66-1.25) mg/dL Est GFR (CKD-EPI)AfAm 44 (>60 ml/min/1.73 sqM) Est GFR (CKD-EPI)NonAf 38 (>60 ml/min/1.73 sqM) Glucose 214 H (74-99) mg/dL Plasma Lactic Acid [place] 1.4 (0.7-2.0) mmol/L Calcium 8.9 (8.4-10.2) mg/dL Phosphorus 4.6 H (2.5-4.5) mg/dL Magnesium 3.5 H (1.6-2.3) mg/dL Total Bilirubin 2.3 H (0.2-1.3) mg/dL AST 36 (17-59) U/L ALT 19 (4-49) U/L Alkaline Phosphatase 161 H (38-126) U/L Troponin I 0.071 H* (0.000-0.034) ng/mL NT-Pro-B Natriuret Pep pg/mL Total Protein 7.8 (6.3-8.2) g/dL Albumin 3.9 (3.5-5.0) g/dL Urine Color Urine Appearance (Clear) Urine pH (5.0-8.0) Ur Specific [place] (1.001-1.035) Urine Protein (Negative) Urine Glucose (UA) (Negative) Urine Ketones (Negative) Urine Blood (Negative) Urine Nitrite (Negative) Urine Bilirubin (Negative) Urine Urobilinogen (<2.0) mg/dL Ur Leukocyte Esterase (Negative) 06/25/22 Range/Units 20:12 WBC (3.8-10.6) k/uL RBC (4.30-5.90) m/uL Hgb (13.0-17.5) gm/dL Hct (39.0-53.0) % MCV (80.0-100.0) fL MCH (25.0-35.0) pg MCHC (31.0-37.0) g/dL RDW (11.5-15.5) % Plt Count (150-450) k/uL MPV Neutrophils % % Lymphocytes % % Monocytes % % Eosinophils % % Basophils % % Neutrophils # (1.3-7.7) k/uL Lymphocytes # (1.0-4.8) k/uL Monocytes # (0-1.0) k/uL Eosinophils # (0-0.7) k/uL Basophils # (0-0.2) k/uL PT (9.0-12.0) sec INR (<1.2) APTT (22.0-30.0) sec Sodium (137-145) mmol/L Potassium (3.5-5.1) mmol/L Chloride (98-107) mmol/L Carbon Dioxide (22-30) mmol/L Anion Gap mmol/L BUN (9-20) mg/dL Creatinine (0.66-1.25) mg/dL Est GFR (CKD-EPI)AfAm (>60 ml/min/1.73 sqM) Est GFR (CKD-EPI)NonAf (>60 ml/min/1.73 sqM) Glucose (74-99) mg/dL Plasma Lactic Acid [place] (0.7-2.0) mmol/L Calcium (8.4-10.2) mg/dL Phosphorus (2.5-4.5) mg/dL Magnesium (1.6-2.3) mg/dL Total Bilirubin (0.2-1.3) mg/dL AST (17-59) U/L ALT (4-49) U/L Alkaline Phosphatase (38-126) U/L Troponin I (0.000-0.034) ng/mL NT-Pro-B Natriuret Pep 7990 pg/mL Total Protein (6.3-8.2) g/dL Albumin (3.5-5.0) g/dL Urine Color Urine Appearance (Clear) Urine pH (5.0-8.0) Ur Specific [place] (1.001-1.035) Urine Protein (Negative) Urine Glucose (UA) (Negative) Urine Ketones (Negative) Urine Blood (Negative) Urine Nitrite (Negative) Urine Bilirubin (Negative) Urine Urobilinogen (<2.0) mg/dL Ur Leukocyte Esterase (Negative) - EKG Data -: EKG Interpreted by Me (EKG is A. fib a 69 QRS 185 QTC 493) Disposition Clinical Impression: Bilateral lower extremity edema, Dehydration, MARIALUISA (acute kidney injury), ARF (acute renal failure) Disposition: ADMITTED IP TO THIS HOSP Condition: Fair Is patient prescribed a controlled substance at d/c from ED?: No
[2022-06-25] MEDS ORDERED: NALOXONE 0.4 MG/ML 1 ML VIAL IV PRN (20:18)
[2022-06-25] MEDS ORDERED: MORPHINE SULFATE 4 MG/ML SYRINGE IV PRN (20:18)
[2022-06-25 20:28] LABS: Appearance,Urine Clear (Clear); Bilirubin,Urine Negative (Negative); Blood,Urine Negative (Negative); Color,Urine Light Yellow; Glucose,Urine (UA) 4+ (Negative); Ketones,Urine Negative (Negative); Leukocyte Esterase,Urine Negative (Negative); Nitrite,Urine Negative (Negative); Protein,Urine Negative (Negative); Specific Gravity,Urine 1.009 (1.001-1.035); Urobilinogen,Urine <2.0 mg/dL (<2.0)
[2022-06-25 20:37] LABS: Albumin 3.9 g/dL (3.5-5.0); Calcium 8.9 mg/dL (8.4-10.2); Magnesium 3.5 mg/dL (1.6-2.3); Phosphorus 4.6 mg/dL (2.5-4.5); Potassium 2.9 mmol/L (3.5-5.1); Total Bilirubin 2.3 mg/dL (0.2-1.3); Total Protein 7.8 g/dL (6.3-8.2)
[2022-06-25 20:38] LABS: Basophils % (A) 0 %; Eosinophils # (A) 0.1 k/uL (0-0.7); Eosinophils % (A) 1 %; HCT 48.7 % (39.0-53.0); HGB 15.9 gm/dL (13.0-17.5); INR 1.1 (<1.2); Lymphocytes # (A) 1.3 k/uL (1.0-4.8); Lymphocytes % (A) 16 %; MCH 31.6 pg (25.0-35.0); MCHC 32.7 g/dL (31.0-37.0); MCV 96.8 fL (80.0-100.0); Mean Platelet Volume 9.4; Monocytes # (A) 0.6 k/uL (0-1.0); Monocytes % (A) 7 %; Neutrophils % (A) 74 %; Partial Thromboplastin Time 27.7 sec (22.0-30.0); Platelet Count 198 k/uL (150-450); RBC 5.03 m/uL (4.30-5.90); RDW 15.9 % (11.5-15.5); WBC 8.2 k/uL (3.8-10.6)
[2022-06-25] MEDS ORDERED: ACETAMINOPHEN TAB 325 MG TAB PO PRN (23:36)
[2022-06-25] MEDS ORDERED: ALBUTEROL NEBULIZED 2.5 MG/3 ML INHALATION PRN (23:36)
[2022-06-25] MEDS ORDERED: ALBUTEROL HFA INHALER INHALATION PRN (23:36)
[2022-06-25] MEDS ORDERED: DEXTROSE 50% SYRINGE 50 ML IVP PRN ×2 (23:39)
[2022-06-26] MEDS: LACOSAMIDE 50 MG TABLET PO SCH ×3 (01:29→21:46)
[2022-06-26 06:40] LABS: Basophils % (A) 0 %; Eosinophils # (A) 0.1 k/uL (0-0.7); Eosinophils % (A) 1 %; HCT 47.1 % (39.0-53.0); HGB 15.2 gm/dL (13.0-17.5); Hypochromasia Slight; Lymphocytes # (A) 1.6 k/uL (1.0-4.8); Lymphocytes % (A) 19 %; MCH 31.1 pg (25.0-35.0); MCHC 32.4 g/dL (31.0-37.0); MCV 96.1 fL (80.0-100.0); Mean Platelet Volume 9.6; Monocytes # (A) 0.6 k/uL (0-1.0); Monocytes % (A) 7 %; Neutrophils % (A) 71 %; Platelet Count 184 k/uL (150-450); RDW 15.5 % (11.5-15.5); WBC 8.5 k/uL (3.8-10.6)
[2022-06-26 06:50] LABS: ALT 17 U/L (4-49); AST 33 U/L (17-59); African American GFR (CKD) 39 (>60 ml/min/1.73 sqM); Albumin 3.9 g/dL (3.5-5.0); Alkaline Phosphatase 176 U/L (38-126); Anion Gap 12 mmol/L; Calcium 8.8 mg/dL (8.4-10.2); Carbon Dioxide 34 mmol/L (22-30); Chloride 82 mmol/L (98-107); Glucose 196 mg/dL (74-99); Magnesium 3.4 mg/dL (1.6-2.3); Non-African American GFR(CKD) 34 (>60 ml/min/1.73 sqM); Phosphorus 4.9 mg/dL (2.5-4.5); Potassium 2.9 mmol/L (3.5-5.1); Sodium 128 mmol/L (137-145); Total Bilirubin 2.7 mg/dL (0.2-1.3); Total Protein 7.6 g/dL (6.3-8.2)
[2022-06-26 06:52] LABS: Blood Urea Nitrogen 116 mg/dL (9-20)
[2022-06-26 07:08] LABS: Glucose,Whole Blood 220 mg/dL (70-110)
[2022-06-26] MEDS: FINASTERIDE 5 MG TAB PO SCH (07:59)
[2022-06-26] MEDS: allopurinoL 300 MG TAB PO SCH (07:59)
[2022-06-26] MEDS: LEVOTHYROXINE 50 MCG TAB PO SCH (07:59)
[2022-06-26] MEDS: FOLIC ACID 1 MG TAB PO SCH (07:59)
[2022-06-26] MEDS: INSULIN ASPART (NovoLOG) 100 UNIT/ML VIAL SQ SCH ×4 (07:59→23:34)
[2022-06-26] MEDS: FLUTICASONE 50MCG/SPRAY NASAL 16GM EA NOSTRIL SCH ×2 (08:01→21:46)
[2022-06-26] MEDS: FLUTICASONE 110 MCG INHALER INHALATION SCH ×2 (08:11→19:23)
[2022-06-26] MEDS ORDERED: PANTOPRAZOLE 40 MG/10 ML VIAL IV SCH (09:00)
[2022-06-26] MEDS ORDERED: FAMOTIDINE 20 MG TAB PO SCH (09:00)
[2022-06-26 09:44] LABS: INR 1.1 (0.90-1.11)
[2022-06-26] MEDS: ONDANSETRON 4 MG/2 ML VIAL IVP PRN ×2 (10:59→20:26)
[2022-06-26] MEDS ORDERED: NITROGLYCERIN SL TABS 0.4 MG TAB SUBLINGUAL PRN (11:57)
[2022-06-26] MEDS ORDERED: NA PHOS,M-B/NA PHOS,DI-BA 133 ML ENEMA RECTAL PRN (11:57)
[2022-06-26] MEDS ORDERED: Magnesium Replacement Protocol 1 EACH MISC MISCELLANE PRN (12:02)
[2022-06-26] MEDS ORDERED: Potassium Replacement Protocol 1 EACH MISC MISCELLANE PRN (12:02)
--- NOTE | 2022-06-26 12:05 | P.HPIM ---
History of Present Illness This is a pleasant 72 years old male with past medical history of atrial fibrillation on Eliquis, hypothyroidism, hypertension, hyperlipidemia, chronic kidney disease, coronary artery disease, COPD, osteoarthritis ,peripheral vascul ar disease, peripheral neuropathy, chronic back pain, BPH, diverticular disease, history of B-cell lymphoma in 2016 and completed chemotherapy in 2017. Persistent atrial fibrillation Patient and at bedside. He is awake and alert and oriented to time, place and person, he just has some difficulty remembering the name of his skilled nursing but he has insight into his illness and he follows commands appropriately. Patient states that they send him to the hospital mainly because of constipation as he did not have bowel movement for the last few days. However he reports he has 2 small bowel movement overnight. He still complained and also from lower abdominal pain and tenderness which is mild, no guarding or rebound tenderness. His been having nausea and dry heaves but no vomiting. He feels some pressure pain in the bottom and on exam he has fecal impaction with some feces sticking out from his anus As per at bedside patient has been confused and weak over the last 3-4 days but she confirms today he's awake and alert and no confusion. However he feels generally weak and he fell twice on and yesterday when he was walking to the door trying to open it, he denies dizziness or syncope. No chest pain or dyspnea that time. He denies any trauma or any other trauma. His been having some some tingling and tightness in his chest when he has bowel movements over the last for 5 days, he supposed to get cardiac cath when his been evaluated 2 weeks ago but that's was placed on hold because of his bad kidney function. He has some cough and little or no phlegm. He has little dyspnea blood pressure if he has exertional dyspnea. Patient feels thirsty as well with dry mucous membranes Vitas looks stable and patient is afebrile. Patient co CBC is unremarkable. INR is normal. Sodium 129, potassium 2.9, creatinine elevated to 1.9. Leukocytosis 20. Magnesium 3.4. And conjugated bilirubin is 2.0 which is elevated. AST and ALT are normal. Troponin is elevated EKG showing atrial fibrillation with a rate of 69 Repeat labs this morning show sodium 128, potassium 2.9, creatinine 1.9. Phosphorus elevated 4.9, magnesium elevated 3.4. Bilirubin 2.0 which is high. AST and ALT are normal. Hemoglobin A1c is elevated 9.6%. On reviewing the records from [facility]: The patient was on Keflex 400 mg every 6 hours for cellulitis started on 06/14/2022 on 06/23/2022 he had an enema with digital removal and started on lactulose daily and milk of magnesia and he had small bowel movement. CT of the abdomen and pelvis done at [facility] done without IV contrast for abdominal pain and rectal pressure and constipation to rule out SBO showed no evidence of intestinal obstruction, there is extensive colonic stool content ,Fat-containing umbilical hernia , no evidence of renal or ureteral calcification. Nonspecific groundglass opacity in the left lung bases are likely postinflammatory. Consider follow-up to establish stability urine analys is showing glucose more than 1000 but negative leukocytes Magnesium 4.0. Phosphorus 5.1 Direct bilirubin is normal 1.4 Sodium 1:30, potassium 36, albumin 4.0. ALT and AST are normal at 24 and 28 respectively. Calcium is 10.4. BUN 124. Glucose 385, increased total bilirubin at 3.1. Lactic acid within the reference range at 2.1. WBCs 8.8, hemoglobin 16, platelet count 198. He received IV fluid and insulin and Zofran As per documented note patient was brought from [facility] for co nsideration about his abdominal pain and constipation and he wants to rule out bowel obstruction. However patient denied abdominal pain in the emergency room there, patient reports sleeping more than usual and he had recent to falls at home with no syncope.the last bowel movement was 4 days earlier birthday commenced. Also patient was complaining of from generalized weakness and sleeping more than usual. Also there is documentation of a fall 2 with no injury At [facility] hirsute normal saline at 200 mL per hour and 8 units of regular insulin Review of Systems Review of systems CONSTITUTIONAL: No fever, no malaise, no fatigue. HEENT: No recent visual problems or hearing problems. Denied any sore throat. CARDIOVASCULAR: No orthopnea, PND, no palpitations, no syncope. PULMONARY: No chest wall tenderness, no hemoptysis. GASTROINTESTINAL: No diarrhea, no nausea, no vomiting. Normoactive bowel sounds. NEUROLOGICAL: No headaches, no weakness, no numbness. HEMATOLOGICAL: Denies any bleeding or petechiae. GENITOURINARY: Denies any burning micturition, frequency, or urgency. MUSCULOSKELETAL/RHEUMATOLOGICAL: Denies any joint pain, swelling, or any muscle pain. ENDOCRINE: Denies any polyuria or polydipsia. Past Medical History Past Medical History: Atrial Fibrillation, Asthma, Coronary Artery Disease (CAD), Cancer, Heart Failure, COPD, Diabetes Mellitus, Hyperlipidemia, Hypertension, Osteoarthritis (OA), Prostate Disorder, Renal Disease, Vascular Disorder Additional Past Medical History / Comment(s): PVD, multiple wounds bilateral legs/feet and has current L foot wound, dry scaley skin bilateral legs/feet, NIDDM type II-no longer on medications since weight loss, neuropathy bilateral legs/feet, subcutaneous B cell lymphoma diagnosed 08/2016 and completed chemotherapy 01/2017, CKD stage III, gout, back pain if stands too long, divert icular disease, benign colon polyps, BPH History of Any Multi-Drug Resistant Organisms: MRSA Date of last positivie culture/infection: 05/18/17 MDRO Source:: RIGHT LEG Past Surgical History: Heart Catheterization With Stent, Joint Replacement, Orthopedic Surgery, Tonsillectomy Additional Past Surgical History / Comment(s): 2013 PCI with 2 stents, infusaport R upper chest, 8 hand surgeries after injury in [facility]-skin grafts/tendon repair-skin taken from L upper chest and bilateral ankle tendon donors, L total hip arthroplasty, colonoscopies/benign polyps. Past Anesthesia/Blood Transfusion Reactions: Previous Problems w/ Anesthesia Additional Past Anesthesia/Blood Transfusion Reaction / Comment(s): Difficulty waking with 2 surgeries performed while in the [employer] Date of Last Stent Placement:: 2013 Past Psychological History: No Psychological Hx Reported Additional Psychological History / Comment(s): Pt has clausterphobia. Pt resides with his spouse. He uses a walker to ambulate but this is becoming more difficult. Spouse states she feels they could use some home care assistance. She states he is not to go into a skilled nursing, rehab at [facility] at this time 05/2022. 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 He drives. Smoking Status: Never smoker Past Alcohol Use History: Occasional Past Drug Use History: None Reported - Past Family History Mother Family Medical History: COPD, Diabetes Mellitus Additional Family Medical History / Comment(s): Mother of a [place] at the age of 61 yrs. She was a heavy smoker. Father History Unknown: Yes Family Medical History: Myocardial Infarction (SD) Additional Family Medical History / Comment(s): Pt does not know father's medic al history Medications and Allergies Home Medications Medication Instructions Recorded Confirmed Type Finasteride 5 mg PO DAILY 04/18/14 06/25/22 History Fluticasone Nasal [place] [Flonase 1 spray EA NOSTRIL BID@0900,1700 10/18/19 06/25/22 History Nasal [place]] Nitroglycerin Sl Tabs [Nitrostat] 0.4 mg SL Q5M PRN 01/13/21 06/25/22 History allopurinoL [Zyloprim] 300 mg PO DAILY 01/13/21 06/25/22 History Apixaban [Eliquis] 2.5 mg PO BID@0900,1700 06/06/22 06/25/22 History Beclomethasone Dip 80 Mcg/Puff 1 puff INHALATION RT-BID@0900,1700 06/06/22 06/25/22 History [Qvar 80 mcg] Dulaglutide [Trulicity] 0.75 mg SQ RODRIGUEZ 06/06/22 06/25/22 History Empagliflozin [Jardiance] 10 mg PO DAILY 06/06/22 06/25/22 History Ergocalciferol [Vitamin D2 (1250 1,250 mcg PO Q14D 06/06/22 06/25/22 History Mcg = 03900 Iu)] Folic Acid 1 mg PO DAILY 06/06/22 06/25/22 History Levothyroxine Sodium [Synthroid] 50 mcg PO DAILY@0600 06/06/22 06/25/22 History Spironolactone 25 mg PO DAILY 06/06/22 06/25/22 History calcitrioL [Calcitriol] 0.25 mcg PO MOFR 06/06/22 06/25/22 History Acetaminophen Tab [Tylenol] 650 mg PO Q6HR PRN tab 06/13/22 06/25/22 Rx Albuterol Nebulized [Ventolin 2.5 mg INHALATION RT-Q6H PRN ml 06/13/22 06/25/22 Rx Nebulized] Potassium Chloride ER [K-Dur 20] 20 meq PO DAILY tab 06/13/22 06/25/22 Rx metOLazone [Zaroxolyn] 5 mg PO DAILY tab 06/13/22 06/25/22 Rx Albuterol Sulfate [Proair Hfa] 1 puff INHALATION RT-Q6H PRN 06/25/22 06/25/22 History Atorvastatin [Lipitor] 40 mg PO HS 06/25/22 06/25/22 History Famotidine [Pepcid] 20 mg PO BID 06/25/22 06/25/22 History Furosemide [Lasix] 80 mg PO BID@0900,1700 06/25/22 06/25/22 History Insulin Glargine [Lantus Vial] 10 unit SQ HS 06/25/22 06/25/22 History Lacosamide [Vimpat] 100 mg PO BID@0900,1700 06/25/22 06/25/22 History Lactulose 20 gm PO DAILY 06/25/22 06/25/22 History Magnesium Hydroxide [Milk of 2,400 mg PO DAILY 06/25/22 06/25/22 History Magnesia] Magnesium Hydroxide [Milk of 2,400 mg PO Q48H PRN 06/25/22 06/25/22 History Magnesia] Na Phos,M-B/Na Phos,Di-Ba [Fleet 133 ml RECTAL Q72H PRN 06/25/22 06/25/22 History Adult] Oxybutynin Chloride [Oxybutynin 10 mg PO DAILY 06/25/22 06/25/22 History Chloride ER] Prostat Sugar Free 30 ml PO DAILY 06/25/22 06/25/22 History bisacodyL 10 mg RECTAL Q48H PRN 06/25/22 06/25/22 History Allergies Allergy/AdvReac Type Severity Reaction Status Date / Time Penicillins Allergy Unknown Verified 06/25/22 19:48 Childhood/Patient went into a coma Physical Exam Vitals: Vital Signs Temp Pulse Pulse Resp BP BP Pulse Ox 06/26/22 07:19 95 06/26/22 01:31 97.5 F L 72 18 109/72 95 06/25/22 21:57 97.9 F 69 17 105/66 97 06/25/22 20:41 75 18 122/74 98 06/25/22 19:30 97.8 F 98 18 105/65 97 Intake and Output 06/25/22 06/26/22 06/26/22 22:59 06:59 14:59 Output Total 400 Balance -400 Output: Urine 400 Other: # Bowel Movements 2 Weight 117.027 kg -GENERAL: The patient is alert and oriented x3, not in any acute distress. Well obese, generally weak -HEENT: Pupils are round and equally reacting to light. EOMI. No scleral i cterus. No conjunctival pallor. Normocephalic, atraumatic. No pharyngeal erythema. No thyromegaly. Dry mucous membranes CARDIOVASCULAR: S1 and S2 present. No murmurs, rubs, or gallops. PULMONARY: Chest is clear to auscultation, no wheezing or crackles. -ABDOMEN: Soft, mild lower abdominal tenderness with no guarding or rebound tenderness, nondistended, normoactive bowel sounds. No palpable organomegaly. stool evident at anal outlet MUSCULOSKELETAL: No joint swelling or deformity. EXTREMITIES: No cyanosis, clubbing, or pedal edema. NEUROLOGICAL: Gross neurological examination did not reveal any focal deficits. SKIN: No rashes. no petechiae. Results CBC & Chem 7: 06/26/22 05:40 06/26/22 05:40 Labs: Abnormal Lab Results - Last 24 Hours (Table) 06/25/22 06/25/22 06/25/22 Range/Units 20:12 20:12 20:12 RDW 15.9 H (11.5-15.5) % Sodium 129 L (137-145) mmol/L Potassium 2.9 L (3.5-5.1) mmol/L Chloride 80 L (98-107) mmol/L Carbon Dioxide 37 H (22-30) mmol/L BUN 120 H* (9-20) mg/dL Creatinine 1.76 H (0.66-1.25) mg/dL Glucose 214 H (74-99) mg/dL POC Glucose (mg/dL) (70-110) mg/dL Phosphorus 4.6 H (2.5-4.5) mg/dL Magnesium 3.5 H (1.6-2.3) mg/dL Total Bilirubin 2.3 H (0.2-1.3) mg/dL Unconjugated Bilirubin (0.0-1.1) mg/dL Alkaline Phosphatase 161 H (38-126) U/L Troponin I (0.000-0.034) ng/mL Urine Glucose (UA) 4+ H (Negative) 06/25/22 06/26/22 06/26/22 Range/Units 20:12 05:40 07:06 RDW (11.5-15.5) % Sodium 128 L (137-145) mmol/L Potassium 2.9 L (3.5-5.1) mmol/L Chloride 82 L (98-107) mmol/L Carbon Dioxide 34 H (22-30) mmol/L BUN 116 H* (9-20) mg/dL Creatinine 1.91 H (0.66-1.25) mg/dL Glucose 196 H (74-99) mg/dL POC Glucose (mg/dL) 220 H (70-110) mg/dL Phosphorus 4.9 H (2.5-4.5) mg/dL Magnesium 3.4 H (1.6-2.3) mg/dL Total Bilirubin 2.7 H (0.2-1.3) mg/dL Unconjugated Bilirubin 2.0 H (0.0-1.1) mg/dL Alkaline Phosphatase 176 H (38-126) U/L Troponin I 0.071 H* (0.000-0.034) ng/mL Urine Glucose (UA) (Negative) Assessment and Plan Assessment: Abdominal pain associated with fecal impaction/Constipation Hyponatremia, looks hypovolemic Elevated troponin Mild acute kidney injury Moderately elevated troponin, cardiac cath recommended but was held because of worsening kidney function Fat-containing umbilical hernia Persistent atrial fibrillation on Eliquis Chronic kidney disease stage 3 Hyponatremia, hypervolemic Diabetes mellitus with hyperglycemia Chronic atrial fibrillation anticoagulated with eliquis Coronary artery disease status post stenting History of COPD / Asthma Hyperlipidemia Hypertension, currently normotensive Chronic peripheral vascular disease History B cell lymphoma underwent treatment in 2017 History of BPH Obesity Plan: This is a pleasant 72 years old male who presents with fecal impaction and elevated troponin. He has ongoing slightly worsening kidney function and hyponatremia. Continue with laxatives and enemas for his fecal infection, we'll start the patient on lactulose and Colace Percent on gentle hydration normal saline at 50 mL/h. Hold Lasix and metolazone Check hemoglobin A1c and continue with insulin sliding scale Follow-up with nephrology recommendation, consult cardiology service Labs and medication were reviewed.. Continue same treatment. Continue with symptomatic treatment. Resume home medication. Monitor lytes and vitals. DVT and GI prophylaxis. Further recommendations as per clinical course of the patient DVT prophylaxis: Eliquis GI Prophylaxis: Ppi PT/OT: Pending, he originally came from rehab Prognosis is guarded
[2022-06-26 12:16] LABS: Glucose,Whole Blood 243 mg/dL (70-110)
[2022-06-26] MEDS: LACTULOSE 20 GM/30 ML CUP PO SCH ×3 (12:26→21:46)
[2022-06-26] MEDS: DOCUSATE 100 MG CAP PO SCH ×2 (12:26→21:45)
[2022-06-26] MEDS: SODIUM CHLORIDE 0.9% 1,000 ML IV SCH (12:26)
[2022-06-26] MEDS: POTASSIUM CHLORIDE ER 20 MEQ TAB.ER PO SCH ×3 (12:45→15:15)
--- NOTE | 2022-06-26 13:44 | P.NPCON ---
History of Present Illness - Reason for Consult Consult date: 06/26/22 acute renal failure - Chief Complaint Abnormal labs - History of Present Illness 72-year-old gentleman sent in from intermediate because of abnormal labs. He has chronic kidney disease stage IIIB with a baseline creatinine of 1.5-1.7 MG per DL. He was recently discharged from the hospital after CHF exacerbation on Lasix and metolazone and Aldactone. While in the intermediate he was fluid rest ricted and was continued with diuretics. He was sent to the hospital with a BUN of 120 and a creatinine of 1.76. BUN improved to 116 and creatinine Worse to 1.9 MG per DL today. No nausea vomiting diarrhea. Not on steroids, hemoglobin stable. Currently on normal saline at 50 ML's an hour. Review of Systems Constitutional: Reports as per HPI Past Medical History Past Medical History: Atrial Fibrillation, Asthma, Coronary Artery Disease (CAD), Cancer, Heart Failure, COPD, Diabetes Mellitus, Hyperlipidemia, Hyper tension, Osteoarthritis (OA), Prostate Disorder, Renal Disease, Vascular Disorder Additional Past Medical History / Comment(s): PVD, multiple wounds bilateral legs/feet and has current L foot wound, dry scaley skin bilateral legs/feet, NIDDM type II-no longer on medications since weight loss, neuropathy bilateral legs/feet, subcutaneous B cell lymphoma diagnosed 08/2016 and completed chemotherapy 01/2017, CKD stage III, gout, back pain if stands too long, diverticular disease, benign colon polyps, BPH History of Any Multi-Drug Resistant Organisms: MRSA Date of last positivie culture/infection: 05/18/17 MDRO Source:: RIGHT LEG Past Surgical History: Heart Catheterization With Stent, Joint Replacement, Orthopedic Surgery, Tonsillectomy Additional Past Surgical History / Comment(s): 2013 PCI with 2 stents, infusaport R upper chest, 8 hand surgeries after injury in [place]-skin grafts/tendon repair-skin taken from L upper chest and bilateral ankle tendon donors, L total hip arthroplasty, colonoscopies/benign polyps. Past Anesthesia/Blood Transfusion Reactions: Previous Problems w/ Anesthesia Additional Past Anesthesia/Blood Transfusion Reaction / Comment(s): Difficulty waking with 2 surgeries performed while in the [employer] Date of Last Stent Placement:: 2013 Past Psychological History: No Psychological Hx Reported Additional Psychological History / Comment(s): Pt has clausterphobia. Pt resides with his spouse. He uses a walker to ambulate but this is becoming more difficult. Spouse states she feels they could use some home care assistance. She states he is not to go into a intermediate, rehab at [facility] at this time 05/2022. 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 Smoking Status: Never smoker Past Alcohol Use History: Occasional Past Drug Use History: None Reported - Past Family History Mother Family Medical History: COPD, Diabetes Mellitus Additional Family Medical History / Comment(s): Mother of a [place] at the age of 61 yrs. She was a heavy smoker. Father History Unknown: Yes Family Medical History: Myocardial Infarction ([place]) Additional Family Medical History / Comment(s): Pt does not know father's medical history Medications and Allergies Home Medications Medication Instructions Recorded Confirmed Type Finasteride 5 mg PO DAILY 04/18/14 06/25/22 History Fluticasone Nasal [place] [Flonase 1 spray EA NOSTRIL BID@0900,1700 10/18/19 06/25/22 History Nasal [place]] Nitroglycerin Sl Tabs [Nitrostat] 0.4 mg SL Q5M PRN 01/13/21 06/25/22 History allopurinoL [Zyloprim] 300 mg PO DAILY 01/13/21 06/25/22 History Apixaban [Eliquis] 2.5 mg PO BID@0900,1700 06/06/22 06/25/22 History Beclomethasone Dip 80 Mcg/Puff 1 puff INHALATION RT-BID@0900,1700 06/06/22 06/25/22 History [Qvar 80 mcg] Dulaglutide [Trulicity] 0.75 mg SQ RODRIGUEZ 06/06/22 06/25/22 History Empagliflozin [Jardiance] 10 mg PO DAILY 06/06/22 06/25/22 History Ergocalciferol [Vitamin D2 (1250 1,250 mcg PO Q14D 06/06/22 06/25/22 History Mcg = [id number] Iu)] Folic Acid 1 mg PO DAILY 06/06/22 06/25/22 History Levothyroxine Sodium [Synthroid] 50 mcg PO DAILY@0600 06/06/22 06/25/22 History Spironolactone 25 mg PO DAILY 06/06/22 06/25/22 History calcitrioL [Calcitriol] 0.25 mcg PO MOFR 06/06/22 06/25/22 History Acetaminophen Tab [Tylenol] 650 mg PO Q6HR PRN tab 06/13/22 06/25/22 Rx Albuterol Nebulized [Ventolin 2.5 mg INHALATION RT-Q6H PRN ml 06/13/22 06/25/22 Rx Nebulized] Potassium Chloride ER [K-Dur 20] 20 meq PO DAILY tab 06/13/22 06/25/22 Rx metOLazone [Zaroxolyn] 5 mg PO DAILY tab 06/13/22 06/25/22 Rx Albuterol Sulfate [Proair Hfa] 1 puff INHALATION RT-Q6H PRN 06/25/22 06/25/22 History Atorvastatin [Lipitor] 40 mg PO HS 06/25/22 06/25/22 History Famotidine [Pepcid] 20 mg PO BID 06/25/22 06/25/22 History Furosemide [Lasix] 80 mg PO BID@0900,1700 06/25/22 06/25/22 History Insulin Glargine [Lantus Vial] 10 unit SQ HS 06/25/22 06/25/22 History Lacosamide [Vimpat] 100 mg PO BID@0900,1700 06/25/22 06/25/22 History Lactulose 20 gm PO DAILY 06/25/22 06/25/22 History Magnesium Hydroxide [Milk of 2,400 mg PO DAILY 06/25/22 06/25/22 History Magnesia] Magnesium Hydroxide [Milk of 2,400 mg PO Q48H PRN 06/25/22 06/25/22 History Magnesia] Na Phos,M-B/Na Phos,Di-Ba [Fleet 133 ml RECTAL Q72H PRN 06/25/22 06/25/22 Histo ry Adult] Oxybutynin Chloride [Oxybutynin 10 mg PO DAILY 06/25/22 06/25/22 History Chloride ER] Prostat Sugar Free 30 ml PO DAILY 06/25/22 06/25/22 History bisacodyL 10 mg RECTAL Q48H PRN 06/25/22 06/25/22 History Allergies Allergy/AdvReac Type Severity Reaction Status Date / Time Penicillins Allergy Unknown Verified 06/25/22 19:48 Childhood/Patient went into a coma Physical Exam Vitals: Vital Signs Temp Pulse Pulse Resp BP BP Pulse Ox 06/26/22 08:00 98.4 F 74 18 128/68 97 06/26/22 07:19 95 06/26/22 01:31 97.5 F L 72 18 109/72 95 06/25/22 21:57 97.9 F 69 17 105/66 97 06/25/22 20:41 75 18 122/74 98 06/25/22 19:30 97.8 F 98 18 105/65 97 Intake and Output 06/25/22 06/26/22 06/26/22 22:59 06:59 14:59 Intake Total 240 Output Total 400 425 Balance -400 -185 Intake: Oral 240 Output: Urine 400 425 Other: Voiding Method Urinal # Bowel Movements 2 Weight 117.027 kg No acute distress S1-S2 heard Lungs clear Abdomen soft No edema Results - Lab Results Most recent lab results Calcium 8.8 mg/dL (8.4-10.2) 06/26/22 05:40 Phosphorus 4.9 mg/dL (2.5-4.5) H 06/26/22 05:40 Magnesium 3.4 mg/dL (1.6-2.3) H 06/26/22 05:40 06/26/22 05:40 06/26/22 05:40 Assessment and Plan Assessment: #1 acute kidney injury secondary to volume depletion/diuretic use. #2 CHF with systolic dysfunction #3 CK D stage IIIB, suspect secondary to nephrosclerosis with a baseline creatinine of 1.5-1.7 MG per DL. #4 low normal blood pressures Plan: #1 agree with holding diuretics. Also stop Aldactone. #2 continue with normal saline, increased to 75 ML's an hour. #3 increase by mouth intake, check labs in the morning #4 avoid nephrotoxic agents
[2022-06-26 17:05] LABS: Glucose,Whole Blood 224 mg/dL (70-110)
[2022-06-26] MEDS: APIXABAN 2.5 MG TABLET PO SCH (17:18)
[2022-06-26] MEDS: ATORVASTATIN 40 MG TAB PO SCH (21:45)
[2022-06-26 21:53] LABS: Glucose,Whole Blood 203 mg/dL (70-110)
[2022-06-27] MEDS: SODIUM CHLORIDE 0.9% 1,000 ML IV SCH ×2 (07:08→15:27)
[2022-06-27] MEDS ORDERED: PANTOPRAZOLE 40 MG TABLET PO SCH (07:30)
[2022-06-27 07:39] LABS: Glucose,Whole Blood 177 mg/dL (70-110)
[2022-06-27] MEDS: LACOSAMIDE 50 MG TABLET PO SCH ×2 (07:45→21:38)
[2022-06-27] MEDS: OXYBUTYNIN 10 MG TAB.ER.24 PO SCH (07:45)
[2022-06-27] MEDS: DOCUSATE 100 MG CAP PO SCH ×2 (07:45→21:38)
[2022-06-27] MEDS: LEVOTHYROXINE 50 MCG TAB PO SCH (07:45)
[2022-06-27] MEDS: FINASTERIDE 5 MG TAB PO SCH (07:45)
[2022-06-27] MEDS: APIXABAN 2.5 MG TABLET PO SCH ×2 (07:46→16:53)
[2022-06-27] MEDS: allopurinoL 300 MG TAB PO SCH (07:46)
[2022-06-27] MEDS: FAMOTIDINE 20 MG TAB PO SCH (07:46)
[2022-06-27] MEDS: FLUTICASONE 50MCG/SPRAY NASAL 16GM EA NOSTRIL SCH ×2 (07:46→21:38)
[2022-06-27] MEDS: FOLIC ACID 1 MG TAB PO SCH (07:46)
[2022-06-27] MEDS: LACTULOSE 20 GM/30 ML CUP PO SCH ×3 (07:49→21:38)
[2022-06-27] MEDS: INSULIN ASPART (NovoLOG) 100 UNIT/ML VIAL SQ SCH ×4 (07:52→21:38)
[2022-06-27 08:28] LABS: Appearance,Urine Clear (Clear); Bilirubin,Urine Negative (Negative); Blood,Urine Negative (Negative); Color,Urine Yellow; Glucose,Urine (UA) 4+ (Negative); Ketones,Urine Negative (Negative); Leukocyte Esterase,Urine Negative (Negative); Nitrite,Urine Negative (Negative); Protein,Urine Negative (Negative); Specific Gravity,Urine 1.013 (1.001-1.035); Urobilinogen,Urine <2.0 mg/dL (<2.0)
[2022-06-27] MEDS ORDERED: SPIRONOLACTONE 25 MG TAB PO SCH (09:00)
[2022-06-27 09:20] LABS: Basophils # (A) 0.02 X 10*3/uL (0.00-0.10); Basophils % (A) 0.3 %; Eosinophils # (A) 0.12 X 10*3/uL (0.04-0.35); Eosinophils % (A) 1.6 %; HCT 43.8 % (39.6-50.0); HGB 14.1 g/dL (13.0-17.0); Immature Grans, Automated 0.4 %; Lymphocytes # (A) 1.61 X 10*3/uL (0.90-5.00); MCH 30.3 pg (27.0-32.0); MCHC 32.2 g/dL (32.0-37.0); Mean Platelet Volume 12.3 fL (9.5-12.2); Monocytes # (A) 0.72 X 10*3/uL (0.20-1.00); Monocytes % (A) 9.4 %; NRBC Per 100 WBC 0 /100 WBCS (0.0-0.0); Neutrophils # (A) 5.15 X 10*3/uL (1.80-7.70); Neutrophils % (A) 67.3 %; Platelet Count 173 X 10*3/uL (140-440); RBC 4.66 X 10*6/uL (4.40-5.60); RDW 15.7 % (11.5-14.5); WBC 7.65 X 10*3/uL (4.50-10.00)
[2022-06-27 09:37] LABS: Magnesium 3.4 mg/dL (1.5-2.4)
[2022-06-27] MEDS: FLUTICASONE 110 MCG INHALER INHALATION SCH ×2 (09:55→19:37)
--- NOTE | 2022-06-27 10:02 | P.CRDCN ---
History of Present Illness History of present illness: HISTORY OF PRESENT ILLNESS: This is a 72-year-old male with a past medical history significant for coronary artery disease, permanent atrial fibrillation, chronic lower extremity edema, hypertension, hyperlipidemia, and chronic kidney disease. Patient follows in the office with Dr. Talley. We have been asked to see the patient in consultation for abnormal troponin. Patient examined at the bedside. Patient was brought to the hospital secondary to fecal impaction. Patient denies any shortness of breath. He reprots minor tingling in his chest on occasion. No chest pain or pressure at the time of examination. Vital signs are stable. * EKG reveals atrial fibrillation. Left axis deviation. Right bundle branch block. * Chest xray pending at the time of this dictation * Laboratory data: WBC 7.65. Hemoglobin 14.1. Platelet count 173. Sodium 128. Potassium 2.9. BUN 116. Creatinine 1.91. Magnesium 3.4. ProBNP 7990. Troponin 0.070. * Current home cardiac medications include Jardiance 10mg daily, Lipitor 40 mg at night, Zaroxolyn 5 mg daily, spironolactone 25 mg daily, Eliquis 2.5 mg twice a day, Lasix 80 mg twice a day * Most recent echocardiogram obtained in May 2022 revealed ejection fraction 25-30%, mild to moderate aortic regurgitation, moderate mitral and tricuspid regurgitation. * Cardiac catheterization history: December 2020 revealing intermediate to severe disease involving the proximal LAD with calcified tubular lesion appeared to the rate of 60%. Normal left ventricular end-diastolic pressure. Medical management was recommended. REVIEW OF SYSTEMS: At the time of my exam: CONSTITUTIONAL: Denies fever or chills. HEENT: Denies blurred vision, vision changes, or eye pain. Denies hemoptysis CARDIOVASCULAR: Denies chest pain. Denies orthopnea. Denies PND. Denies palpitations RESPIRATORY: Denies shortness of breath. GASTROINTESTINAL: Denies abdominal pain. Denies nausea or vomiting. HEMATOLOGIC: Denies bleeding disorders. GENITOURINARY: Denies any blood in urine. SKIN: Denies pruitis. Denies rash. PHYSICAL EXAM: VITAL SIGNS: Reviewed. GENERAL: Well-developed in no acute distress. HEENT: Head is normocephalic. Pupils are equal, round. Sclerae anicteric. Mucous membranes of the mouth are moist. Neck supple. No JVD or thyromegaly LUNGS: Respirations even and unlabored. Lungs essentially clear to auscultation bilaterally. HEART: Irregular rate and rhythm. S1 and S2 heard. Systolic murmur noted. ABDOMEN: Soft. Nondistended. Nontender. EXTREMITIES: Normal range of motion. No clubbing or cyanosis. Peripheral pulses intact. Trace lower extremity edema NEUROLOGIC: Awake and alert. Oriented x 3. ASSESSMENT: Fecal impaction Acute on chronic kidney disease Abnormal troponin, secondary to MARIALUISA, acute coronary syndrome ruled out Coronary artery disease Ischemic cardiomyopathy Chronic congestive heart failure with reduced ejection fraction, 25-30% Permanent atrial fibrillation Hypertension Hyperlipidemia PLAN: An acute coronary event has been ruled out Resume home cardiac medications Resume diuretics when okay with nephrology Patient may benefit from ZA/ARB when kidney function improves secondary to cardiomyopathy Add metoprolol to succinate 12.5 mg daily No further inpatient recommendations regarding cardiac standpoint Patient may follow up outpatient with Dr. Talley We will sign off. Please reconsult if needed. Nurse practitioner note has been reviewed by physician. Signing provider agrees with the documented findings, assessment, and plan of care. Past Medical History Past Medical History: Atrial Fibrillation, Asthma, Coronary Artery Disease (CAD), Cancer, Heart Failure, COPD, Diabetes Mellitus, Hyperlipidemia, Hypertension, Osteoarthritis (OA), Prostate Disorder, Renal Disease, Vascular Disorder Additional Past Medical History / Comment(s): PVD, multiple wounds bilateral legs/feet and has current L foot wound, dry scaley skin bilateral legs/feet, NIDDM type II-no longer on medications since weight loss, neuropathy bilateral legs/feet, subcutaneous B cell lymphoma diagnosed 08/2016 and completed geremias motherapy 01/2017, CKD stage III, gout, back pain if stands too long, diverticular disease, benign colon polyps, BPH History of Any Multi-Drug Resistant Organisms: MRSA Date of last positivie culture/infection: 05/18/17 MDRO Source:: RIGHT LEG Past Surgical History: Heart Catheterization With Stent, Joint Replacement, Orthopedic Surgery, Tonsillectomy Additional Past Surgical History / Comment(s): 2013 PCI with 2 stents, infusaport R upper chest, 8 hand surgeries after injury in [place]-skin grafts/tendon repair-skin taken from L upper chest and bilateral ankle tendon d onors, L total hip arthroplasty, colonoscopies/benign polyps. Past Anesthesia/Blood Transfusion Reactions: Previous Problems w/ Anesthesia Additional Past Anesthesia/Blood Transfusion Reaction / Comment(s): Difficulty waking with 2 surgeries performed while in the [employer] Date of Last Stent Placement:: 2013 Past Psychological History: No Psychological Hx Reported Additional Psychological History / Comment(s): Pt has clausterphobia. Pt resides with his spouse. He uses a walker to ambulate but this is becoming more difficult. Spouse states she feels they could use some home care assistance. She states he is not to go into a prison, rehab at [facility] at this time 05/2022 . 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 He drives. Smoking Status: Never smoker Past Alcohol Use History: Occasional Past Drug Use History: None Reported - Past Family History Mother Family Medical History: COPD, Diabetes Mellitus Additional Family Medical History / Comment(s): Mother of a RI at the age of 61 yrs. She was a heavy smoker. Father History Unknown: Yes Family Medical History: Myocardial Infarction (RI) Additional Family Medical History / Comment(s): Pt does not know father's medical history Medications and Allergies Home Medications Medication Instructions Recorded Confirmed Type Finasteride 5 mg PO DAILY 04/18/14 06/25/22 History Fluticasone Nasal Olin [Flonase 1 spray EA NOSTRIL BID@0900,1700 10/18/19 06/25/22 History Nasal Olin] Nitroglycerin Sl Tabs [Nitrostat] 0.4 mg SL Q5M PRN 01/13/21 06/25/22 History allopurinoL [Zyloprim] 300 mg PO DAILY 01/13/21 06/25/22 History Apixaban [Eliquis] 2.5 mg PO BID@0900,1700 06/06/22 06/25/22 History Beclomethasone Dip 80 Mcg/Puff 1 puff INHALATION RT-BID@0900,1700 06/06/22 06/25/22 History [Qvar 80 mcg] Dulaglutide [Trulicity] 0.75 mg SQ RODRIGUEZ 06/06/22 06/25/22 History Empagliflozin [Jardiance] 10 mg PO DAILY 06/06/22 06/25/22 History Ergocalciferol [Vitamin D2 (1250 1,250 mcg PO Q14D 06/06/22 06/25/22 History Mcg = 68161 Iu)] Folic Acid 1 mg PO DAILY 06/06/22 06/25/22 History Levothyroxine Sodium [Synthroid] 50 mcg PO DAILY@0600 06/06/22 06/25/22 History Spironolactone 25 mg PO DAILY 06/06/22 06/25/22 History calcitrioL [Calcitriol] 0.25 mcg PO MOFR 06/06/22 06/25/22 History Acetaminophen Tab [Tylenol] 650 mg PO Q6HR PRN tab 06/13/22 06/25/22 Rx Albuterol Nebulized [Ventolin 2.5 mg INHALATION RT-Q6H PRN ml 06/13/22 06/25/22 Rx Nebulized] Potassium Chloride ER [K-Dur 20] 20 meq PO DAILY tab 06/13/22 06/25/22 Rx metOLazone [Zaroxolyn] 5 mg PO DAILY tab 06/13/22 06/25/22 Rx Albuterol Sulfate [Proair Hfa] 1 puff INHALATION RT-Q6H PRN 06/25/22 06/25/22 History Atorvastatin [Lipitor] 40 mg PO HS 06/25/22 06/25/22 History Famotidine [Pepcid] 20 mg PO BID 06/25/22 06/25/22 History Furosemide [Lasix] 80 mg PO BID@0900,1700 06/25/22 06/25/22 History Insulin Glargine [Lantus Vial] 10 unit SQ HS 06/25/22 06/25/22 History Lacosamide [Vimpat] 100 mg PO BID@0900,1700 06/25/22 06/25/22 History Lactulose 20 gm PO DAILY 06/25/22 06/25/22 History Magnesium Hydroxide [Milk of 2,400 mg PO DAILY 06/25/22 06/25/22 History Magnesia] Magnesium Hydroxide [Milk of 2,400 mg PO Q48H PRN 06/25/22 06/25/22 History Magnesia] Na Phos,M-B/Na Phos,Di-Ba [Fleet 133 ml RECTAL Q72H PRN 06/25/22 06/25/22 History Adult] Oxybutynin Chloride [Oxybutynin 10 mg PO DAILY 06/25/22 06/25/22 History Chloride ER] Prostat Sugar Free 30 ml PO DAILY 06/25/22 06/25/22 History bisacodyL 10 mg RECTAL Q48H PRN 06/25/22 06/25/22 History Allergies Allergy/AdvReac Type Severity Reaction Status Date / Time Penicillins Allergy Unknown Verified 06/25/22 19:48 Childhood/Patient went into a coma Physical Exam Vitals: Vital Signs Temp Pulse Resp BP Pulse Ox 06/27/22 07:43 97.5 F L 80 20 111/72 96 06/27/22 02:00 97.3 F L 89 124/76 98 06/26/22 20:00 98.1 F 77 16 108/67 97 06/26/22 14:00 97.6 F 84 18 113/64 95 Intake and Output 06/26/22 06/27/22 06/27/22 22:59 06:59 14:59 Output Total 500 600 Balance -500 -600 Output: Urine 500 600 Other: # Voids 4 # Bowel Movements 2 1 Results 06/27/22 06:01 06/26/22 05:40 CBC 06/27/22 Range/Units 06:01 WBC 7.65 (4.50-10.00) X 10*3/uL RBC 4.66 (4.40-5.60) X 10*6/uL Hgb 14.1 (13.0-17.0) g/dL Hct 43.8 (39.6-50.0) % Plt Count 173 (140-440) X 10*3/uL Current Medications Generic Name Dose Route Start Last Admin Trade Name Freq PRN Reason Stop Dose Admin Acetaminophen 650 mg 06/25/22 23:36 Acetaminophen Tab 325 Mg Tab PO Q6HR PRN Fever and/ or Pain Albuterol Sulfate 2.5 mg 06/25/22 23:36 Albuterol Nebulized 2.5 Mg/3 Ml INHALATION RT-Q6H PRN Shortness Of Breath Allopurinol 300 mg 06/26/22 09:00 06/27/22 07:46 Allopurinol 300 Mg Tab PO 300 mg DAILY JASBIR Administration Apixaban 2.5 mg 06/26/22 17:00 06/27/22 07:46 Apixaban 2.5 Mg Tablet PO 2.5 mg BID@0900,1700 JASBIR Administration Protocol Atorvastatin Calcium 40 mg 06/26/22 21:00 06/26/22 21:45 Atorvastatin 40 Mg Tab PO 40 mg HS JASBIR Administration Calcitriol 0.25 mcg 06/27/22 09:00 06/27/22 07:45 Calcitriol 0.25 Mcg Cap PO 0.25 mcg MOFR JASBIR Administration Dextrose/Water 50 ml 06/25/22 23:39 Dextrose 50% Syringe 50 Ml IVP PER PROTOCOL PRN Hypoglycemia Protocol Dextrose/Water 25 ml 06/25/22 23:39 Dextrose 50% Syringe 50 Ml IVP PER PROTOCOL PRN Hypoglycemia Protocol Docusate Sodium 100 mg 06/26/22 12:00 06/27/22 07:45 Docusate 100 Mg Cap PO 100 mg BID JASBIR Administration Famotidine 20 mg 06/27/22 09:00 06/27/22 07:46 Famotidine 20 Mg Tab PO 20 mg Q24HR JASBIR Administration Finasteride 5 mg 06/26/22 09:00 06/27/22 07:45 Finasteride 5 Mg Tab PO 5 mg DAILY JASBIR Administration Fluticasone Propionate 1 puff 06/26/22 08:00 06/26/22 19:23 Fluticasone 110 Mcg Inhaler INHALATION 1 puff RT-BID JASBIR Administration Fluticasone Propionate 1 spray 06/26/22 09:00 06/27/22 07:46 Fluticasone 50mcg/Olin Nasal 16gm EA NOSTRIL 1 spray BID JASBIR Administration Folic Acid 1 mg 06/26/22 09:00 06/27/22 07:46 Folic Acid 1 Mg Tab PO 1 mg DAILY JASBIR Administration Sodium Chloride 1,000 mls @ 75 mls/hr 06/26/22 12:00 06/27/22 07:08 Saline 0.9% IV Not Given .[id number] JASBIR Insulin Aspart 0 unit 06/26/22 07:30 06/27/22 07:52 Insulin Aspart (Novolog) 100 Unit/Ml Vial SQ 2 unit ACHS JASBIR Administration Protocol Lacosamide 100 mg 06/25/22 23:39 06/27/22 07:45 Lacosamide 50 Mg Tablet PO 100 mg BID JASBIR Administration Lactulose 20 gm 06/26/22 12:00 06/27/22 07:49 Lactulose 20 Gm/30 Ml Cup PO 20 gm TID JASBIR Administration Levothyroxine Sodium 50 mcg 06/26/22 06:30 06/27/22 07:45 Levothyroxine 50 Mcg Tab PO 50 mcg DAILY@0630 JASBIR Administration Metoprolol Tartrate 12.5 mg 06/27/22 09:15 Metoprolol Tartrate 12.5 Mg Tab PO DAILY [facility] Miscellaneous Information 1 each 06/26/22 12:02 Magnesium Replacement Protocol 1 Each Misc MISCELLANE DAILY PRN Per Protocol Protocol Miscellaneous Information 1 each 06/26/22 12:02 Potassium Replacement Protocol 1 Each Misc MISCELLANE DAILY PRN Per Protocol Protocol Morphine Sulfate 4 mg 06/25/22 20:18 Morphine Sulfate 4 Mg/Ml Syringe IV Q4HR PRN Severe Pain Naloxone HCl 0.2 mg 06/25/22 20:18 Naloxone 0.4 Mg/Ml 1 Ml Vial IV Q2M PRN Opioid Reversal Nitroglycerin 0.4 mg 06/26/22 11:57 Nitroglycerin Sl Tabs 0.4 Mg Tab SUBLINGUAL Q5M PRN Chest Pain Ondansetron HCl 4 mg 06/25/22 20:18 06/26/22 20:26 Ondansetron 4 Mg/2 Ml Vial IVP 4 mg Q8HR PRN Administration Nausea And Vomiting Oxybutynin Chloride 10 mg 06/27/22 09:00 06/27/22 07:45 Oxybutynin 10 Mg Tab.Er.24 PO 10 mg DAILY JASBIR Administration Sodium Biphosphate/Sodium Phosphate 133 ml 06/26/22 11:57 Na Phos,M-B/Na Phos,Di-Ba 133 Ml Enema RECTAL Q72H PRN Constipation Intake and Output 06/26/22 06/27/22 06/27/22 22:59 06:59 14:59 Output Total 500 600 Balance -500 -600 Output: Urine 500 600 Other: # Voids 4 # Bowel Movements 2 1 06/27/22 06:01 06/26/22 05:40
[2022-06-27 10:18] LABS: African American GFR (CKD) 42.3 (60.0-200.0); Albumin 3.6 g/dL (3.8-4.9); Albumin/Globulin Ratio 1.13 (1.60-3.17); Anion Gap 14.4 mmol/L (10.00-18.00); BUN/Creat Ratio 52.83 Ratio (12.00-20.00); Bilirubin, Conjugated 0.91 mg/dL (0.20-0.40); Bilirubin,Unconjugated 1.39 mg/dL (0.20-1.00); Blood Urea Nitrogen 95.1 mg/dL (9.0-27.0); Calcium 9.1 mg/dL (8.7-10.3); Carbon Dioxide 29.6 mmol/L (20.0-27.5); Globulin 3.2 g/dL (1.6-3.3); Non-African American GFR(CKD) 36.5 (60.0-200.0); Potassium 3.3 mmol/L (3.5-5.5); Total Bilirubin 2.3 mg/dL (0.30-1.20); Total Protein 6.8 g/dL (6.2-8.2)
[2022-06-27] MEDS: METOPROLOL TARTRATE 12.5 MG TAB PO SCH (10:41)
[2022-06-27] MEDS ORDERED: POTASSIUM CHLORIDE ER 20 MEQ TAB.ER PO STA (10:49)
--- NOTE | 2022-06-27 10:54 | P.PN ---
Subjective Patient is seen in follow-up for acute kidney injury on chronic kidney disease. Renal function slightly better. BUN trending down. On IV fluids. Nonoliguric. Oral intake poor. Having dry heaves. Vital signs are stable. General: Awake. No acute distress. HEENT: Head exam is unremarkable. LUNGS: Breath sounds decreased. HEART: Rate and Rhythm are regular. ABDOMEN: Soft, no distention. Nontender. EXTREMITITES: No edema. Chronic changes noted. Objective - Vital Signs Vital signs: Vital Signs Temp 97.5 F L 06/27/22 07:43 Pulse 90 06/27/22 10:40 Resp 20 06/27/22 07:43 BP 108/75 06/27/22 10:40 Pulse Ox 96 06/27/22 07:43 FiO2 Intake & Output 06/26/22 06/27/22 06/27/22 18:59 06:59 18:59 Intake Total 240 Output Total 925 600 Balance -685 -600 Intake: Oral 240 Output: Urine 925 600 Other: Voiding Method Urinal # Voids 4 # Bowel Movements 2 1 - Labs CBC & Chem 7: 06/27/22 06:01 06/27/22 06:01 Labs: Abnormal Lab Results - Last 24 Hours (Table) 06/26/22 06/26/22 06/26/22 Range/Units 05:40 12:13 17:01 RDW (11.5-14.5) % MPV (9.5-12.2) fL Sodium (135-145) mmol/L Potassium (3.5-5.5) mmol/L Chloride (96-109) mmol/L Carbon Dioxide (20.0-27.5) mmol/L BUN (9.0-27.0) mg/dL Creatinine (0.6-1.5) mg/dL Est GFR (CKD-EPI)AfAm (60.0-200.0) Est GFR (CKD-EPI)NonAf (60.0-200.0) BUN/Creatinine Ratio (12.00-20.00) Ratio Glucose (70-110) mg/dL POC Glucose (mg/dL) 243 H 224 H (70-110) mg/dL Magnesium (1.5-2.4) mg/dL Total Bilirubin (0.30-1.20) mg/dL Conjugated Bilirubin (0.20-0.40) mg/dL Unconjugated Bilirubin (0.20-1.00) mg/dL Alkaline Phosphatase (41-126) U/L Albumin (3.8-4.9) g/dL Albumin/Globulin Ratio (1.60-3.17) g/dL Procalcitonin 0.30 H (0.02-0.09) ng/mL Urine Glucose (UA) (Negative) 06/26/22 06/27/22 06/27/22 Range/Units 21:52 06:01 06:01 RDW 15.7 H (11.5-14.5) % MPV 12.3 H (9.5-12.2) fL Sodium (135-145) mmol/L Potassium (3.5-5.5) mmol/L Chloride (96-109) mmol/L Carbon Dioxide (20.0-27.5) mmol/L BUN (9.0-27.0) mg/dL Creatinine (0.6-1.5) mg/dL Est GFR (CKD-EPI)AfAm (60.0-200.0) Est GFR (CKD-EPI)NonAf (60.0-200.0) BUN/Creatinine Ratio (12.00-20.00) Ratio Glucose (70-110) mg/dL POC Glucose (mg/dL) 203 H (70-110) mg/dL Magnesium (1.5-2.4) mg/dL Total Bilirubin (0.30-1.20) mg/dL Conjugated Bilirubin (0.20-0.40) mg/dL Unconjugated Bilirubin (0.20-1.00) mg/dL Alkaline Phosphatase (41-126) U/L Albumin (3.8-4.9) g/dL Albumin/Globulin Ratio (1.60-3.17) g/dL Procalcitonin 0.20 H (0.02-0.09) ng/mL Urine Glucose (UA) (Negative) 06/27/22 06/27/22 06/27/22 Range/Units 06:01 07:37 08:25 RDW (11.5-14.5) % MPV (9.5-12.2) fL Sodium 129 L (135-145) mmol/L Potassium 3.3 L (3.5-5.5) mmol/L Chloride 85 L (96-109) mmol/L Carbon Dioxide 29.6 H (20.0-27.5) mmol/L BUN 95.1 H (9.0-27.0) mg/dL Creatinine 1.8 H (0.6-1.5) mg/dL Est GFR (CKD-EPI)AfAm 42.3 L (60.0-200.0) Est GFR (CKD-EPI)NonAf 36.5 L (60.0-200.0) BUN/Creatinine Ratio 52.83 H (12.00-20.00) Ratio Glucose 173 H (70-110) mg/dL POC Glucose (mg/dL) 177 H (70-110) mg/dL Magnesium 3.4 H (1.5-2.4) mg/dL Total Bilirubin 2.30 H (0.30-1.20) mg/dL Conjugated Bilirubin 0.91 H (0.20-0.40) mg/dL Unconjugated Bilirubin 1.39 H (0.20-1.00) mg/dL Alkaline Phosphatase 145 H (41-126) U/L Albumin 3.6 L (3.8-4.9) g/dL Albumin/Globulin Ratio 1.13 L (1.60-3.17) g/dL Procalcitonin (0.02-0.09) ng/mL Urine Glucose (UA) 4+ H (Negative) Assessment and Plan Plan: Assessment: 1. Acute kidney injury mostly prerenal secondary to hypovolemia from diuretics. Creatinine 1.8 today. Nonoliguric. UA benign. Elevated BUN due to hypovolemia. BUN trending down. No evidence of GI bleed. Not on steroids. 2. Chronic systolic CHF with ejection fraction of 25-30% with mild to moderate aortic regurgitation, moderate mitral and tricuspid regurgitation and moderate pulmonary hypertension. 3. Chronic kidney disease stage IIIB with baseline creatinine in the range of 1.5-1.7 secondary to nephrosclerosis. UA benign. 4. Hypokalemia from diuretics and poor intake. 5. Hypovolemic hyponatremia. Was also taking metolazone which can induce hyponatremia. 6. Chronic kidney disease mineral bone disease maintained on calcitriol. 7. Hypermagnemesia. Was taking milk of magnesia outpatient. Plan: Replace potassium. Maintain IV fluids. Encouraged oral intake. 1200 mL fluid restriction. Continue to hold diuretics. Avoid nephrotoxins. Stop Fleet enemas. Check bladder scan to make sure no urinary retention. Lactulose as needed for constipation. Follow-up chest x-ray. Avoid magnesium containing compounds.
--- NOTE | 2022-06-27 11:17 | XR ---
EXAMINATION TYPE: XR chest 2V DATE OF EXAM: 06/27/2022 COMPARISON: Chest x-ray 06/06/2022 HISTORY: Drowsiness, weakness, abnormal chest x-ray TECHNIQUE: Frontal and lateral views of the chest are obtained on 3 images. FINDINGS: There is a port in the right pectoral region coursing via an internal jugular approach, dis jefferson to the catheter courses to the level of the superior vena cava. Patient is rotated. There is no f ocal air space opacity, pleural effusion, or pneumothorax seen. The cardiac silhouette size is stabl e. The osseous structures are intact. IMPRESSION: No acute cardiopulmonary process.
[2022-06-27 11:53] LABS: Glucose,Whole Blood 185 mg/dL (70-110)
[2022-06-27 16:25] VITALS: BMI 34.0
[2022-06-27 16:50] LABS: Glucose,Whole Blood 192 mg/dL (70-110)
[2022-06-27 20:53] LABS: Glucose,Whole Blood 301 mg/dL (70-110)
[2022-06-27] MEDS: ATORVASTATIN 40 MG TAB PO SCH (21:38)
--- NOTE | 2022-06-27 21:58 | P.PN ---
Subjective This is a pleasant 72 years old male with past medical history of atrial fibrillation on Eliquis, hypothyroidism, hypertension, hyperlipidemia, chronic kidney disease, coronary artery disease, COPD, osteoarthritis ,peripheral vascular disease, peripheral neuropathy, chronic back pain, BPH, diverticular disease, history of B-cell lymphoma in 2016 and completed chemotherapy in 2017. Persistent atrial fibrillation Patient and at bedside. He is awake and alert and oriented to time, place and person, he just has some difficulty remembering the name of his [facility] but he has insight into his illness and he follows commands appropriately. Patient states that they send him to the hospital mainly because of constipation as he did not have bowel movement for the last few days. However he reports he has 2 small bowel movement overnight. He still complained and also from lower abdominal pain and tenderness which is mild, no guarding or rebound tenderness. His been having nausea and dry heaves but no vomiting. He feels some pressure pain in the bottom and on exam he has fecal impaction with some feces sticking out from his anus As per at bedside patient has been confused and weak over the last 3-4 days but she confirms today he's awake and alert and no confusion. However he feels generally weak and he fell twice on and yesterday when he was walking to the door trying to open it, he denies dizziness or syncope. No chest pain or dyspnea that time. He denies any trauma or any other trauma. His been having some some tingling and tightness in his chest when he has bowel movements over the last for 5 days, he supposed to get cardiac cath when his been evaluated 2 weeks ago but that's was placed on hold because of his bad kidney function. He has some cough and little or no phlegm. He has little dyspnea blood pressure if he has exertional dyspnea. Patient feels thirsty as well with dry mucous membranes Vitas looks stable and patient is afebrile. Patient co CBC is unremarkable. INR is normal. Sodium 129, potassium 2.9, creatinine elevated to 1.9. Leukocytosis 20. Magnesium 3.4. And conjugated bilirubin is 2.0 which is elevated. AST and ALT are normal. Troponin is elevated EKG showing atrial fibrillation with a rate of 69 Repeat labs this morning show sodium 128, potassium 2.9, creatinine 1.9. Phosphorus elevated 4.9, magnesium elevated 3.4. Bilirubin 2.0 which is high. AST and ALT are normal. Hemoglobin A1c is elevated 9.6%. On reviewing the records from [facility]: The patient was on Keflex 400 mg every 6 hours for cellulitis started on 06/14/2022 on 06/23/2022 he had an enema with digital removal and started on lactulose daily and milk of magnesia and he had small bowel movement. CT of the abdomen and pelvis done at [facility] done without IV contrast for abdominal pain and rectal pressure and constipation to rule out SBO showed no evidence of intestinal obstruction, there is extensive colonic stool content ,Fat-containing umbilical hernia , no evidence of renal or ureteral calcification. Nonspecific groundglass opacity in the left lung bases are likely postinflammatory. Consider follow-up to establish stability urine analysis showing glucose more than 1000 but negative leukocytes Magnesium 4.0. Phosphorus 5.1 Direct bilirubin is normal 1.4 Sodium 1:30, potassium 36, albumin 4.0. ALT and AST are normal at 24 and 28 respectively. Calcium is 10.4. BUN 124. Glucose 385, increased total bilirubin at 3.1. Lactic acid within the reference range at 2.1. WBCs 8.8, hemoglobin 16, platelet count 198. He received IV fluid and insulin and Zofran As per documented note patient was brought from [facility] for consideration about his abdominal pain and constipation and he wants to rule out bowel obstruction. However patient denied abdominal pain in the emergency room there, patient reports sleeping more than usual and he had recent to falls at home with no syncope.the last bowel movement was 4 days earlier birthday commen john. Also patient was complaining of from generalized weakness and sleeping more than usual. Also there is documentation of a fall 2 with no injury At [facility] hirsute normal saline at 200 mL per hour and 8 units of regular insulin 06/27/2022 That is improving gradually with hydration as his main problem is dehydration from over diuresis. Lasix and metolazone out on hold and currently is on normal saline at 75 mL/h and his creatinine is slightly down to 1.8, sodium slightly up 129. Low potassium replacement, bilirubin slightly elevated. There is no evidence of infection and no need for antibiotics. Chest x-ray and urinalysis are negative Hemoglobin A1c is 8.6%, his 10 units of Lantus are on hold and currently on insulin sliding scale [facility] patient is placed on lactulose, Colace and enema when necessary Continue with home dose of Eliquis 2.5 mg PT/OT is ordered Objective - Vital Signs Vital signs: Vital Signs Temp 97.5 F L 06/27/22 07:43 Pulse 90 06/27/22 10:40 Resp 20 06/27/22 11:45 BP 108/75 06/27/22 10:40 Pulse Ox 96 06/27/22 07:43 FiO2 Intake & Output 06/26/22 06/27/22 06/27/22 18:59 06:59 18:59 Intake Total 240 Output Total 925 600 100 Balance -685 -600 -100 Intake: Oral 240 Output: Urine 925 600 Post Void Residual 100 Other: Voiding Method Urinal Urinal # Voids 4 # Bowel Movements 2 1 - Exam -GENERAL: The patient is alert and oriented x3, not in any acute distress. Well obese, generally weak -HEENT: Pupils are round and equally reacting to light. EOMI. No scleral icterus. No conjunctival pallor. Normocephalic, atraumatic. No pharyngeal eryt rodriguez. No thyromegaly. Dry mucous membranes, improving CARDIOVASCULAR: S1 and S2 present. No murmurs, rubs, or gallops. PULMONARY: Chest is clear to auscultation, no wheezing or crackles. -ABDOMEN: Soft, mild lower abdominal tenderness with no guarding or rebound tenderness, nondistended, normoactive bowel sounds. No palpable organomegaly. Hard stool evident at anal outlet MUSCULOSKELETAL: No joint swelling or deformity. EXTREMITIES: No cyanosis, clubbing, or pedal edema. NEUROLOGICAL: Gross neurological examination did not reveal any focal deficits. SKIN: No rashes. no petechiae. - Labs CBC & Chem 7: 06/27/22 06:01 06/27/22 06:01 Labs: Abnormal Lab Results - Last 24 Hours (Table) 06/26/22 06/26/22 06/26/22 Range/Units 05:40 12:13 17:01 RDW (11.5-14.5) % MPV (9.5-12.2) fL Sodium (135-145) mmol/L Potassium (3.5-5.5) mmol/L Chloride (96-109) mmol/L Carbon Dioxide (20.0-27.5) mmol/L BUN (9.0-27.0) mg/dL Creatinine (0.6-1.5) mg/dL Est GFR (CKD-EPI)AfAm (60.0-200.0) Est GFR (CKD-EPI)NonAf (60.0-200.0) BUN/Creatinine Ratio (12.00-20.00) Ratio Glucose (70-110) mg/dL POC Glucose (mg/dL) 243 H 224 H (70-110) mg/dL Magnesium (1.5-2.4) mg/dL Total Bilirubin (0.30-1.20) mg/dL Conjugated Bilirubin (0.20-0.40) mg/dL Unconjugated Bilirubin (0.20-1.00) mg/dL Alkaline Phosphatase (41-126) U/L Albumin (3.8-4.9) g/dL Albumin/Globulin Ratio (1.60-3.17) g/dL Procalcitonin 0.30 H (0.02-0.09) ng/mL Urine Glucose (UA) (Negative) 06/26/22 06/27/22 06/27/22 Range/Units 21:52 06:01 06:01 RDW 15.7 H (11.5-14.5) % MPV 12.3 H (9.5-12.2) fL Sodium (135-145) mmol/L Potassium (3.5-5.5) mmol/L Chloride (96-109) mmol/L Carbon Dioxide (20.0-27.5) mmol/L BUN (9.0-27.0) mg/dL Creatinine (0.6-1.5) mg/dL Est GFR (CKD-EPI)AfAm (60.0-200.0) Est GFR (CKD-EPI)NonAf (60.0-200.0) BUN/Creatinine Ratio (12.00-20.00) Ratio Glucose (70-110) mg/dL POC Glucose (mg/dL) 203 H (70-110) mg/dL Magnesium (1.5-2.4) mg/dL Total Bilirubin (0.30-1.20) mg/dL Conjugated Bilirubin (0.20-0.40) mg/dL Unconjugated Bilirubin (0.20-1.00) mg/dL Alkaline Phosphatase (41-126) U/L Albumin (3.8-4.9) g/dL Albumin/Globulin Ratio (1.60-3.17) g/dL Procalcitonin 0.20 H (0.02-0.09) ng/mL Urine Glucose (UA) (Negative) 06/27/22 06/27/22 06/27/22 Range/Units 06:01 07:37 08:25 RDW (11.5-14.5) % MPV (9.5-12.2) fL Sodium 129 L (135-145) mmol/L Potassium 3.3 L (3.5-5.5) mmol/L Chloride 85 L (96-109) mmol/L Carbon Dioxide 29.6 H (20.0-27.5) mmol/L BUN 95.1 H (9.0-27.0) mg/dL Creatinine 1.8 H (0.6-1.5) mg/dL Est GFR (CKD-EPI)AfAm 42.3 L (60.0-200.0) Est GFR (CKD-EPI)NonAf 36.5 L (60.0-200.0) BUN/Creatinine Ratio 52.83 H (12.00-20.00) Ratio Glucose 173 H (70-110) mg/dL POC Glucose (mg/dL) 177 H (70-110) mg/dL Magnesium 3.4 H (1.5-2.4) mg/dL Total Bilirubin 2.30 H (0.30-1.20) mg/dL Conjugated Bilirubin 0.91 H (0.20-0.40) mg/dL Unconjugated Bilirubin 1.39 H (0.20-1.00) mg/dL Alkaline Phosphatase 145 H (41-126) U/L Albumin 3.6 L (3.8-4.9) g/dL Albumin/Globulin Ratio 1.13 L (1.60-3.17) g/dL Procalcitonin (0.02-0.09) ng/mL Urine Glucose (UA) 4+ H (Negative) 06/27/22 Range/Units 11:49 RDW (11.5-14.5) % MPV (9.5-12.2) fL Sodium (135-145) mmol/L Potassium (3.5-5.5) mmol/L Chloride (96-109) mmol/L Carbon Dioxide (20.0-27.5) mmol/L BUN (9.0-27.0) mg/dL Creatinine (0.6-1.5) mg/dL Est GFR (CKD-EPI)AfAm (60.0-200.0) Est GFR (CKD-EPI)NonAf (60.0-200.0) BUN/Creatinine Ratio (12.00-20.00) Ratio Glucose (70-110) mg/dL POC Glucose (mg/dL) 185 H (70-110) mg/dL Magnesium (1.5-2.4) mg/dL Total Bilirubin (0.30-1.20) mg/dL Conjugated Bilirubin (0.20-0.40) mg/dL Unconjugated Bilirubin (0.20-1.00) mg/dL Alkaline Phosphatase (41-126) U/L Albumin (3.8-4.9) g/dL Albumin/Globulin Ratio (1.60-3.17) g/dL Procalcitonin (0.02-0.09) ng/mL Urine Glucose (UA) (Negative) Assessment and Plan Assessment: Abdominal pain associated with fecal impaction/Constipation Hyponatremia, looks hypovolemic Elevated troponin , acute coronary artery syndrome has been ruled out and group president and off Mild acute kidney injury , improving History of Moderately elevated troponin, cardiac cath recommended but was held because of worsening kidney function Fat-containing umbilical hernia Persistent atrial fibrillation on Eliquis Chronic kidney disease stage 3 Hyponatremia, hypervolemic Diabetes mellitus with hyperglycemia Chronic atrial fibrillation anticoagulated with eliquis Coronary artery disease status post stenting History of COPD / Asthma Hyperlipidemia Hypertension, currently normotensive Chronic peripheral vascular disease History B cell lymphoma underwent treatment in 2017 History of BPH Obesity Plan: This is a pleasant 72 years old male who presents with fecal impaction and elevated troponin. He has ongoing slightly worsening kidney function and hyponatremia. Continue with laxatives and enemas for his fecal infection, we'll start the patient on lactulose and Colace Percent on gentle hydration normal saline at 75 mL/h. Hold Lasix and metolazone Check hemoglobin A1c and continue with insulin sliding scale Follow-up with nephrology recommendation, consult cardiology service Labs and medication were reviewed.. Continue same treatment. Continue with symptomatic treatment. Resume home medication. Monitor lytes and vitals. DVT and GI prophylaxis. Further recommendations as per clinical course of the patient DVT prophylaxis: Eliquis GI Prophylaxis: Ppi PT/OT: Pending, he originally came from rehab Prognosis is guarded
[2022-06-28] MEDS: SODIUM CHLORIDE 0.9% 1,000 ML IV SCH (05:41)
[2022-06-28] MEDS: LEVOTHYROXINE 50 MCG TAB PO SCH (05:41)
[2022-06-28 07:11] LABS: Glucose,Whole Blood 172 mg/dL (70-110)
[2022-06-28 07:27] LABS: African American GFR (CKD) 55 (>60 ml/min/1.73 sqM); Anion Gap 6 mmol/L; Blood Urea Nitrogen 87 mg/dL (9-20); Calcium 8.2 mg/dL (8.4-10.2); Carbon Dioxide 33 mmol/L (22-30); Chloride 89 mmol/L (98-107); Glucose 150 mg/dL (74-99); Non-African American GFR(CKD) 47 (>60 ml/min/1.73 sqM); Potassium 3.1 mmol/L (3.5-5.1); Sodium 128 mmol/L (137-145)
[2022-06-28] MEDS: INSULIN ASPART (NovoLOG) 100 UNIT/ML VIAL SQ SCH ×4 (08:02→21:35)
[2022-06-28] MEDS: APIXABAN 2.5 MG TABLET PO SCH ×2 (08:04→16:07)
[2022-06-28] MEDS: OXYBUTYNIN 10 MG TAB.ER.24 PO SCH (08:04)
[2022-06-28] MEDS: LACOSAMIDE 50 MG TABLET PO SCH ×2 (08:04→21:35)
[2022-06-28] MEDS: METOPROLOL TARTRATE 12.5 MG TAB PO SCH (08:04)
[2022-06-28] MEDS: FLUTICASONE 50MCG/SPRAY NASAL 16GM EA NOSTRIL SCH ×2 (08:04→21:35)
[2022-06-28] MEDS: FINASTERIDE 5 MG TAB PO SCH (08:04)
[2022-06-28] MEDS: allopurinoL 300 MG TAB PO SCH (08:05)
[2022-06-28] MEDS: DOCUSATE 100 MG CAP PO SCH ×2 (08:05→21:35)
[2022-06-28] MEDS: FOLIC ACID 1 MG TAB PO SCH (08:05)
[2022-06-28] MEDS: FAMOTIDINE 20 MG TAB PO SCH (08:05)
[2022-06-28] MEDS: FLUTICASONE 110 MCG INHALER INHALATION SCH ×2 (08:24→19:50)
[2022-06-28] MEDS ORDERED: POTASSIUM CHLORIDE ER 20 MEQ TAB.ER PO STA ×3 (09:37→16:00)
[2022-06-28 10:32] LABS: Basophils # (A) 0.02 X 10*3/uL (0.00-0.10); Basophils % (A) 0.3 %; Eosinophils # (A) 0.13 X 10*3/uL (0.04-0.35); Eosinophils % (A) 1.8 %; HCT 40.4 % (39.6-50.0); HGB 12.7 g/dL (13.0-17.0); Immature Grans, Automated 0.6 %; Lymphocytes # (A) 1.52 X 10*3/uL (0.90-5.00); Lymphocytes % (A) 21.4 %; MCH 29.8 pg (27.0-32.0); MCHC 31.4 g/dL (32.0-37.0); MCV 94.8 fL (80.0-97.0); Mean Platelet Volume 12.2 fL (9.5-12.2); Monocytes # (A) 0.75 X 10*3/uL (0.20-1.00); Monocytes % (A) 10.6 %; NRBC Per 100 WBC 0 /100 WBCS (0.0-0.0); Neutrophils # (A) 4.63 X 10*3/uL (1.80-7.70); Neutrophils % (A) 65.3 %; Platelet Count 149 X 10*3/uL (140-440); RBC 4.26 X 10*6/uL (4.40-5.60); RDW 15.7 % (11.5-14.5); WBC 7.09 X 10*3/uL (4.50-10.00)
--- NOTE | 2022-06-28 10:34 | P.PN ---
Subjective Patient is seen in follow-up for acute kidney injury on chronic kidney disease. Renal function better. BUN trending down. On IV fluids. Nonoliguric. Oral intake poor. Complains of nausea. Vital signs are stable. General: Awake. No acute distress. HEENT: Head exam is unremarkable. LUNGS: Breath sounds decreased. HEART: Rate and Rhythm are regular. ABDOMEN: Soft, no distention. Nontender. EXTREMITITES: No edema. Chronic changes noted. Objective - Vital Signs Vital signs: Vital Signs Temp 97.8 F 06/28/22 08:00 Pulse 68 06/28/22 08:00 Resp 18 06/28/22 08:00 BP 111/71 06/28/22 08:00 Pulse Ox 97 06/28/22 08:00 FiO2 Intake & Output 06/27/22 06/28/22 06/28/22 18:59 06:59 18:59 Intake Total 200 240 Output Total 500 1300 100 Balance -300 -1060 -100 Weight 117.027 kg Intake: Oral 200 240 Output: Urine 400 1300 100 Post Void Residual 100 Other: Voiding Method Urinal # Bowel Movements 0 - Labs CBC & Chem 7: 06/27/22 06:01 06/28/22 06:46 Labs: Abnormal Lab Results - Last 24 Hours (Table) 06/27/22 06/27/22 06/27/22 Range/Units 06:01 11:49 16:47 Sodium (137-145) mmol/L Potassium (3.5-5.1) mmol/L Chloride (98-107) mmol/L Carbon Dioxide (22-30) mmol/L BUN (9-20) mg/dL Creatinine (0.66-1.25) mg/dL Glucose (74-99) mg/dL POC Glucose (mg/dL) 185 H 192 H (70-110) mg/dL Hemoglobin A1c 8.6 H (0.0-6.0) % Calcium (8.4-10.2) mg/dL 06/27/22 06/28/22 06/28/22 Range/Units 20:52 06:46 07:10 Sodium 128 L (137-145) mmol/L Potassium 3.1 L (3.5-5.1) mmol/L Chloride 89 L (98-107) mmol/L Carbon Dioxide 33 H (22-30) mmol/L BUN 87 H (9-20) mg/dL Creatinine 1.45 H (0.66-1.25) mg/dL Glucose 150 H (74-99) mg/dL POC Glucose (mg/dL) 301 H 172 H (70-110) mg/dL Hemoglobin A1c (0.0-6.0) % Calcium 8.2 L (8.4-10.2) mg/dL Assessment and Plan Plan: Assessment: 1. Acute kidney injury mostly prerenal secondary to hypovolemia from diuretics. Renal function improving. Creatinine 1.45 today. Nonoliguric. UA benign. Elevated BUN due to hypovolemia. BUN trending down. No evidence of GI bleed. Not on steroids. 2. Chronic systolic CHF with ejection fraction of 25-30% with mild to moderate aortic regurgitation, moderate mitral and tricuspid regurgitation and moderate pulmonary hypertension. 3. Chronic kidney disease stage IIIB with baseline creatinine in the range of 1.5-1.7 secondary to nephrosclerosis. UA benign. 4. Hypokalemia from diuretics and poor intake. 5. Hypovolemic hyponatremia. Was also taking metolazone which can induce hyponatremia. Oral intake also poor. 6. Chronic kidney disease mineral bone disease maintained on calcitriol. 7. Hypermagnemesia. Was taking milk of magnesia outpatient. Plan: Hep-Lock IV fluids. Encouraged oral intake. 1200 mL fluid restriction. Continue to hold diuretics. Avoid nephrotoxins. Stopped Fleet enemas. Lactulose as needed for constipation. No evidence of fluid overload on chest x-ray. Avoid magnesium containing compounds. Replace potassium.
[2022-06-28] MEDS: ONDANSETRON 4 MG/2 ML VIAL IVP PRN ×2 (10:38→18:03)
[2022-06-28 10:41] LABS: Albumin 3.4 g/dL (3.8-4.9); Albumin/Globulin Ratio 1.15 (1.60-3.17); Bilirubin, Conjugated 0.86 mg/dL (0.20-0.40); Bilirubin,Unconjugated 1.25 mg/dL (0.20-1.00); Magnesium 3.2 mg/dL (1.5-2.4); Total Bilirubin 2.1 mg/dL (0.30-1.20); Total Protein 6.4 g/dL (6.2-8.2)
[2022-06-28] MEDS: LACTULOSE 20 GM/30 ML CUP PO SCH ×3 (10:46→21:35)
[2022-06-28] MEDS ORDERED: POTASSIUM CHLORIDE ER 20 MEQ TAB.ER PO ONE (11:00)
[2022-06-28 11:47] LABS: Glucose,Whole Blood 229 mg/dL (70-110)
[2022-06-28 16:54] LABS: Glucose,Whole Blood 300 mg/dL (70-110)
[2022-06-28 21:34] LABS: Glucose,Whole Blood 201 mg/dL (70-110)
[2022-06-28] MEDS: ATORVASTATIN 40 MG TAB PO SCH (21:35)
--- NOTE | 2022-06-29 00:53 | P.PN ---
Subjective Progress Note Date: 06/28/22 This is a 72 year old male with history of persistent atrial fibrillation and cardiomyopathy with EF 25%. Patient was recently hospitalized for acute heart failure and was discharge to [facility] for rehab. He presents to the with concern for fall x 2 on and Sat with reports of fatigue, weakness and hallucinations. Patient today is feeling slightly better. Patient was also manually disimpacted on Bolt. He has not had BM but is passing alot of gas. Abdomen is soft and nontender. Cardiology has signed off, nephrology following patient. IV fluids have been discontinued, patient continues on 1200 CC fluid restriction. Diuretics continue on hold. Review of Systems Constitutional: Reports fatigue, denied any fever. Cardio vascular: denied any chest pain, palpitations Gastrointestinal: denied any vomiting, diarrhea, reports nausea, no BM. Passing gas. Pulmonary: Denied any shortness of breath cough Neurologic denied any new focal deficits All inpatient medications were reviewed and appropriate changes in these medications as dictated in the interval history and assessment and plan. PHYSICAL EXAMINATION: GENERAL: The patient is alert and oriented x3, not in any acute distress. Well developed, well nourished. Fatigued, pale. HEENT: Pupils are round and equally reacting to light. EOMI. No scleral icterus. No conjunctival pallor. Normocephalic, atraumatic. No pharyngeal erythema. No thyromegaly. CARDIOVASCULAR: S1 and S2 present. No murmurs, rubs, or gallops. PULMONARY: Chest is clear to auscultation, no wheezing or crackles. ABDOMEN: Soft, nontender, nondistended, normoactive bowel sounds. No palpable organomegaly. MUSCULOSKELETAL: No joint swelling or deformity. EXTREMITIES: No cyanosis, clubbing, or pedal edema. NEUROLOGICAL: Cranial nerves grossly intact. No focal neurological deficit. SKIN: No rashes. Chronic hyperpigmentation bilateral lower extremity. Assessment and Plan Assessment Acute metabolic encephalopathy multifocal secondary to dehydration, acute kidney injury, improving Fecal impaction Acute on chronic kidney disease Troponin leak secondary to MARIALUISA Hyponatremia, hypovolemic from poor oral intake, diuresis Hypokalemia Ischemic Cardiomyopathy Chronic systolic and diastolic CHF with EF 25-30%, no acute exacerbation Permanent atrial fibrillation Hypertension History COPD/Asthma Diabetes Mellitus Type 2 Chronic peripheral edema History B Cell Lymphoma status post chemotherapy Coronary artery disease status post PCI GI Prophylaxis DVT Prophylaxis NO CODE Plan Continue with 1200 CC fluid restriction, IV fluids discontinued Lactulose for BM Replace potassium per protocol Appreciate nephrology consultation Follow up with cardiology outpatient Palliative care consultation Repeat BMP in AM The impression and plan of care has been dictated by Alisha Gardner, Nurse Practitioner as directed. Dr. Domenica MD I have performed a history and physical examination and medical decision making of this patient, discussed the same with the dictator, and agree with the dictators assessment and plan as written, documented as a scribe. Based on total visit time, I have performed more than 50% of this visit. Objective - Vital Signs Vital signs: Vital Signs Temp 97.4 F L 06/28/22 14:00 Pulse 76 06/28/22 14:00 Resp 20 06/28/22 14:00 BP 109/71 06/28/22 14:00 Pulse Ox 96 06/28/22 14:00 FiO2 Intake & Output 06/27/22 06/28/22 06/28/22 18:59 06:59 18:59 Intake Total 200 240 Output Total 500 1300 400 Balance -300 -1060 -400 Weight 117.027 kg Intake: Oral 200 240 Output: Urine 400 1300 400 Post Void Residual 100 Other: Voiding Method Urinal # Bowel Movements 0 - Labs CBC & Chem 7: 06/28/22 06:46 06/28/22 14:42 Labs: Abnormal Lab Results - Last 24 Hours (Table) 06/27/22 06/27/22 06/28/22 Range/Units 16:47 20:52 06:46 RBC (4.40-5.60) X 10*6/uL Hgb (13.0-17.0) g/dL MCHC (32.0-37.0) g/dL RDW (11.5-14.5) % Sodium 128 L (137-145) mmol/L Potassium 3.1 L (3.5-5.1) mmol/L Chloride 89 L (98-107) mmol/L Carbon Dioxide 33 H (22-30) mmol/L BUN 87 H (9-20) mg/dL Creatinine 1.45 H (0.66-1.25) mg/dL Glucose 150 H (74-99) mg/dL POC Glucose (mg/dL) 192 H 301 H (70-110) mg/dL Calcium 8.2 L (8.4-10.2) mg/dL Magnesium (1.5-2.4) mg/dL Total Bilirubin (0.30-1.20) mg/dL Conjugated Bilirubin (0.20-0.40) mg/dL Unconjugated Bilirubin (0.20-1.00) mg/dL Alkaline Phosphatase (41-126) U/L Albumin (3.8-4.9) g/dL Albumin/Globulin Ratio (1.60-3.17) g/dL 06/28/22 06/28/22 06/28/22 Range/Units 06:46 06:46 07:10 RBC 4.26 L (4.40-5.60) X 10*6/uL Hgb 12.7 L (13.0-17.0) g/dL MCHC 31.4 L (32.0-37.0) g/dL RDW 15.7 H (11.5-14.5) % Sodium (137-145) mmol/L Potassium (3.5-5.1) mmol/L Chloride (98-107) mmol/L Carbon Dioxide (22-30) mmol/L BUN (9-20) mg/dL Creatinine (0.66-1.25) mg/dL Glucose (74-99) mg/dL POC Glucose (mg/dL) 172 H (70-110) mg/dL Calcium (8.4-10.2) mg/dL Magnesium 3.2 H (1.5-2.4) mg/dL Total Bilirubin 2.10 H (0.30-1.20) mg/dL Conjugated Bilirubin 0.86 H (0.20-0.40) mg/dL Unconjugated Bilirubin 1.25 H (0.20-1.00) mg/dL Alkaline Phosphatase 134 H (41-126) U/L Albumin 3.4 L (3.8-4.9) g/dL Albumin/Globulin Ratio 1.15 L (1.60-3.17) g/dL 06/28/22 Range/Units 11:45 RBC (4.40-5.60) X 10*6/uL Hgb (13.0-17.0) g/dL MCHC (32.0-37.0) g/dL RDW (11.5-14.5) % Sodium (137-145) mmol/L Potassium (3.5-5.1) mmol/L Chloride (98-107) mmol/L Carbon Dioxide (22-30) mmol/L BUN (9-20) mg/dL Creatinine (0.66-1.25) mg/dL Glucose (74-99) mg/dL POC Glucose (mg/dL) 229 H (70-110) mg/dL Calcium (8.4-10.2) mg/dL Magnesium (1.5-2.4) mg/dL Total Bilirubin (0.30-1.20) mg/dL Conjugated Bilirubin (0.20-0.40) mg/dL Unconjugated Bilirubin (0.20-1.00) mg/dL Alkaline Phosphatase (41-126) U/L Albumin (3.8-4.9) g/dL Albumin/Globulin Ratio (1.60-3.17) g/dL Assessment and Plan Time with Patient: Less than 30
[2022-06-29] MEDS: LEVOTHYROXINE 50 MCG TAB PO SCH (06:05)
[2022-06-29 06:37] LABS: Glucose,Whole Blood 167 mg/dL (70-110)
[2022-06-29] MEDS: FLUTICASONE 110 MCG INHALER INHALATION SCH ×2 (07:27→20:14)
[2022-06-29 07:33] LABS: African American GFR (CKD) 61 (>60 ml/min/1.73 sqM); Anion Gap 9 mmol/L; Blood Urea Nitrogen 77 mg/dL (9-20); Calcium 8.3 mg/dL (8.4-10.2); Carbon Dioxide 27 mmol/L (22-30); Chloride 94 mmol/L (98-107); Glucose 166 mg/dL (74-99); Non-African American GFR(CKD) 53 (>60 ml/min/1.73 sqM); Potassium 3.2 mmol/L (3.5-5.1); Sodium 130 mmol/L (137-145)
[2022-06-29] MEDS: OXYBUTYNIN 10 MG TAB.ER.24 PO SCH (07:48)
[2022-06-29] MEDS: LACOSAMIDE 50 MG TABLET PO SCH ×2 (07:48→22:03)
[2022-06-29] MEDS: DOCUSATE 100 MG CAP PO SCH (07:48)
[2022-06-29] MEDS: POTASSIUM CHLORIDE ER 20 MEQ TAB.ER PO SCH (07:49)
[2022-06-29] MEDS: FAMOTIDINE 20 MG TAB PO SCH (07:49)
[2022-06-29] MEDS: APIXABAN 2.5 MG TABLET PO SCH ×2 (07:49→16:30)
[2022-06-29] MEDS: FOLIC ACID 1 MG TAB PO SCH (07:49)
[2022-06-29] MEDS: FINASTERIDE 5 MG TAB PO SCH (07:49)
[2022-06-29] MEDS: LACTULOSE 20 GM/30 ML CUP PO SCH ×3 (07:49→22:04)
[2022-06-29] MEDS: METOPROLOL TARTRATE 12.5 MG TAB PO SCH (07:49)
[2022-06-29] MEDS: allopurinoL 300 MG TAB PO SCH (07:49)
[2022-06-29] MEDS: FLUTICASONE 50MCG/SPRAY NASAL 16GM EA NOSTRIL SCH ×2 (07:50→22:04)
[2022-06-29] MEDS: INSULIN ASPART (NovoLOG) 100 UNIT/ML VIAL SQ SCH ×5 (07:50→22:03)
[2022-06-29] MEDS ORDERED: POTASSIUM CHLORIDE ER 20 MEQ TAB.ER PO STA ×2 (09:06→13:06)
--- NOTE | 2022-06-29 09:19 | P.PN ---
Subjective Patient is seen in follow-up for acute kidney injury on chronic kidney disease. Renal function better. BUN trending down. IV fluids stopped 06/28/2022. Nonoliguric. Oral intake poor. Still having nausea at times. Hemodynamically stable. Vital signs are stable. General: Awake. No acute distress. HEENT: Head exam is unremarkable. LUNGS: Breath sounds decreased. HEART: Rate and Rhythm are regular. ABDOMEN: Soft, no distention. Nontender. EXTREMITITES: No edema. Chronic changes noted. Objective - Vital Signs Vital signs: Vital Signs Temp 97.7 F 06/29/22 07:35 Pulse 64 06/29/22 07:35 Resp 15 06/29/22 07:35 BP 109/67 06/29/22 07:35 Pulse Ox 97 06/29/22 07:35 FiO2 Intake & Output 06/28/22 06/29/22 06/29/22 18:59 06:59 18:59 Intake Total 444 240 120 Output Total 400 750 Balance 44 -510 120 Intake: Oral 444 240 120 Output: Urine 400 750 Other: Voiding Method Urinal # Voids 1 - Labs CBC & Chem 7: 06/28/22 06:46 06/29/22 06:59 Labs: Abnormal Lab Results - Last 24 Hours (Table) 06/28/22 06/28/22 06/28/22 Range/Units 06:46 06:46 11:45 RBC 4.26 L (4.40-5.60) X 10*6/uL Hgb 12.7 L (13.0-17.0) g/dL MCHC 31.4 L (32.0-37.0) g/dL RDW 15.7 H (11.5-14.5) % Sodium (137-145) mmol/L Potassium (3.5-5.1) mmol/L Chloride (98-107) mmol/L BUN (9-20) mg/dL Creatinine (0.66-1.25) mg/dL Glucose (74-99) mg/dL POC Glucose (mg/dL) 229 H (70-110) mg/dL Calcium (8.4-10.2) mg/dL Magnesium 3.2 H (1.5-2.4) mg/dL Total Bilirubin 2.10 H (0.30-1.20) mg/dL Conjugated Bilirubin 0.86 H (0.20-0.40) mg/dL Unconjugated Bilirubin 1.25 H (0.20-1.00) mg/dL Alkaline Phosphatase 134 H (41-126) U/L Albumin 3.4 L (3.8-4.9) g/dL Albumin/Globulin Ratio 1.15 L (1.60-3.17) g/dL 06/28/22 06/28/22 06/28/22 Range/Units 14:42 16:53 21:33 RBC (4.40-5.60) X 10*6/uL Hgb (13.0-17.0) g/dL MCHC (32.0-37.0) g/dL RDW (11.5-14.5) % Sodium (137-145) mmol/L Potassium 3.3 L (3.5-5.1) mmol/L Chloride (98-107) mmol/L BUN (9-20) mg/dL Creatinine (0.66-1.25) mg/dL Glucose (74-99) mg/dL POC Glucose (mg/dL) 300 H 201 H (70-110) mg/dL Calcium (8.4-10.2) mg/dL Magnesium (1.5-2.4) mg/dL Total Bilirubin (0.30-1.20) mg/dL Conjugated Bilirubin (0.20-0.40) mg/dL Unconjugated Bilirubin (0.20-1.00) mg/dL Alkaline Phosphatase (41-126) U/L Albumin (3.8-4.9) g/dL Albumin/Globulin Ratio (1.60-3.17) g/dL 06/29/22 06/29/22 Range/Units 06:35 06:59 RBC (4.40-5.60) X 10*6/uL Hgb (13.0-17.0) g/dL MCHC (32.0-37.0) g/dL RDW (11.5-14.5) % Sodium 130 L (137-145) mmol/L Potassium 3.2 L (3.5-5.1) mmol/L Chloride 94 L (98-107) mmol/L BUN 77 H (9-20) mg/dL Creatinine 1.33 H (0.66-1.25) mg/dL Glucose 166 H (74-99) mg/dL POC Glucose (mg/dL) 167 H (70-110) mg/dL Calcium 8.3 L (8.4-10.2) mg/dL Magnesium 3.0 H (1.5-2.4) mg/dL Total Bilirubin (0.30-1.20) mg/dL Conjugated Bilirubin (0.20-0.40) mg/dL Unconjugated Bilirubin (0.20-1.00) mg/dL Alkaline Phosphatase (41-126) U/L Albumin (3.8-4.9) g/dL Albumin/Globulin Ratio (1.60-3.17) g/dL Assessment and Plan Plan: Assessment: 1. Acute kidney injury mostly prerenal secondary to hypovolemia from diuretics. Renal function improving. Creatinine 1.33 today. Nonoliguric. UA benign. Elevated BUN due to hypovolemia. BUN trending down. No evidence of GI bleed. Not on steroids. 2. Chronic systolic CHF with ejection fraction of 25-30% with mild to moderate aortic regurgitation, moderate mitral and tricuspid regurgitation and moderate pulmonary hypertension. 3. Chronic kidney disease stage IIIB with baseline creatinine in the range of 1.5-1.7 secondary to nephrosclerosis. UA benign. 4. Hypokalemia from diuretics and poor intake. Replaced. 5. Hypovolemic hyponatremia. Was also taking metolazone which can induce hyponatremia. Oral intake also poor. Better. 6. Chronic kidney disease mineral bone disease maintained on calcitriol. 7. Hypermagnemesia. Was taking milk of magnesia outpatient. Trending down. Plan: Off IV fluids. Encouraged oral intake. 1200 mL fluid restriction. Continue to hold diuretics. Avoid nephrotoxins. Stopped Fleet enemas. No evidence of fluid overload on chest x-ray. Avoid magnesium containing compounds. Potassium replaced.
[2022-06-29] MEDS: ONDANSETRON 4 MG/2 ML VIAL IVP PRN ×2 (09:31→16:27)
[2022-06-29 11:08] LABS: Glucose,Whole Blood 255 mg/dL (70-110)
--- NOTE | 2022-06-29 11:37 | P.CONS ---
History of Present Illness - Reason for Consult Consult date: 06/28/22 Goals of care Requesting physician: Alisha Gardner - Chief Complaint abdominal pain - History of Present Illness This is a pleasant 72 years old male with past medical history of atrial fibrillation on Eliquis, Chronic systolic CHF, cardiomyopathy (EF of 25-30%), hypothyroidism, hypertension, hyperlipidemia, CAD, COPD, osteoarthritis, peripheral vascular disease, peripheral neuropathy, chronic back pain, BPH, diverticular disease, history of B-cell lymphoma in 2016 (completed chemotherapy in 2016). He also has a history of CKD stage IIIB with a baseline creatinine of 1.5-1.7. He was recently hospitalized for a CHF exacerbation and discharged to a [facility]. While in rehab he was fluid restricted and was continued with diuretics. He was transferred to the on 06/25/33 from [facility] with concern for falls, constipation, and weakness. CT of the abdomen and pelvis done at [facility] done without IV contrast for abdominal pain and rectal pressure and constipation to rule out SBO showed no evidence of intestinal obstruction, there is extensive colonic stool content ,Fat-containing umbilical hernia , no evidence of renal or ureteral calcification. Patient was also manually disimpacted in [place]. Cardiology had been consulted for elevated troponins. They have since ruled out an acute cardiac event and have signed off. Per nephrology patient with acute kidney injury, mostly prerenal, secondary to hypovolemia from diuretics. Renal function improving. IV fluids have been discontinued, patient continues on 1200ml fluid restriction. Diuretics are on hold. Review of Systems Constitutional: Reports as per HPI, Reports anorexia, Reports fatigue, Reports lethargy, Reports poor appetite, Reports weakness Past Medical History Past Medical History: Atrial Fibrillation, Asthma, Coronary Artery Disease (CAD), Cancer, Heart Failure, COPD, Diabetes Mellitus, Hyperlipidemia, Hypertension, Osteoarthritis (OA), Prostate Disorder, Renal Disease, Vascular Di sorder Additional Past Medical History / Comment(s): PVD, multiple wounds bilateral legs/feet and has current L foot wound, dry scaley skin bilateral legs/feet, NIDDM type II-no longer on medications since weight loss, neuropathy bilateral legs/feet, subcutaneous B cell lymphoma diagnosed 08/2016 and completed chemotherapy 01/2017, CKD stage III, gout, back pain if stands too long, diverticular disease, benign colon polyps, BPH History of Any Multi-Drug Resistant Organisms: MRSA Year Discovered:: 05/18/17 MDRO Source:: RIGHT LEG Past Surgical History: Heart Catheterization With Stent, Joint Replacement, Orthopedic Surgery, Tonsillectomy Additional Past Surgical History / Comment(s): 2013 PCI with 2 stents, infusaport R upper chest, 8 hand surgeries after injury in [place]-skin grafts/tendon repair-skin taken from L upper chest and bilateral ankle tendon donors, L total hip arthroplasty, colonoscopies/benign polyps. Past Anesthesia/Blood Transfusion Reactions: Previous Problems w/ Anesthesia Additional Past Anesthesia/Blood Transfusion Reaction / Comm: Difficulty waking with 2 surgeries performed while in the [employer] Date of Last Stent Placement:: 2013 Past Psychological History: No Psychological Hx Reported Additional Psychological History / Comment(s): Pt has clausterphobia. Pt resides with his spouse. He uses a walker to ambulate but this is becoming more difficult. Spouse states she feels they could use some home care assistance. She states he is not to go into a fdc, rehab at [facility] at this time 05/2022. 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 He drives. Smoking Status: Never smoker Past Alcohol Use History: Occasional Past Drug Use History: None Reported - Past Family History Mother Family Medical History: COPD, Diabetes Mellitus Additional Family Medical History / Comment(s): Mother of a [place] at the age of 61 yrs. She was a heavy smoker. Father History Unknown: Yes Family Medical History: Myocardial Infarction ([place]) Additional Family Medical History / Comment(s): Pt does not know father's medical history Medications and Allergies Home Medications Medication Instructions Recorded Confirmed Type Finasteride 5 mg PO DAILY 04/18/14 06/25/22 History Fluticasone Nasal [place] [Flonase 1 spray EA NOSTRIL BID@0900,1700 10/18/19 06/25/22 History Nasal Kane] Nitroglycerin Sl Tabs [Nitrostat] 0.4 mg SL Q5M PRN 01/13/21 06/25/22 History allopurinoL [Zyloprim] 300 mg PO DAILY 01/13/21 06/25/22 History Apixaban [Eliquis] 2.5 mg PO BID@0900,1700 06/06/22 06/25/22 History Beclomethasone Dip 80 Mcg/Puff 1 puff INHALATION RT-BID@0900,1700 06/06/22 History [Qvar 80 mcg] Dulaglutide [Trulicity] 0.75 mg SQ RODRIGUEZ 06/06/22 06/25/22 History Empagliflozin [Jardiance] 10 mg PO DAILY 06/06/22 06/25/22 History Ergocalciferol [Vitamin D2 (1250 1,250 mcg PO Q14D 06/06/22 06/25/22 History Mcg = 18513 Iu)] Folic Acid 1 mg PO DAILY 06/06/22 06/25/22 History Levothyroxine Sodium [Synthroid] 50 mcg PO DAILY@0600 06/06/22 06/25/22 History Spironolactone 25 mg PO DAILY 06/06/22 06/25/22 History calcitrioL [Calcitriol] 0.25 mcg PO MOFR 06/06/22 06/25/22 History Acetaminophen Tab [Tylenol] 650 mg PO Q6HR PRN tab 06/13/22 06/25/22 Rx Albuterol Nebulized [Ventolin 2.5 mg INHALATION RT-Q6H PRN ml 06/13/22 06/25/22 Rx Nebulized] Potassium Chloride ER [K-Dur 20] 20 meq PO DAILY tab 06/13/22 06/25/22 Rx metOLazone [Zaroxolyn] 5 mg PO DAILY tab 06/13/22 06/25/22 Rx Albuterol Sulfate [Proair Hfa] 1 puff INHALATION RT-Q6H PRN 06/25/22 06/25/22 History Atorvastatin [Lipitor] 40 mg PO HS 06/25/22 06/25/22 History Famotidine [Pepcid] 20 mg PO BID 06/25/22 06/25/22 History Furosemide [Lasix] 80 mg PO BID@0900,1700 06/25/22 06/25/22 History Insulin Glargine [Lantus Vial] 10 unit SQ HS 06/25/22 06/25/22 History Lacosamide [Vimpat] 100 mg PO BID@0900,1700 06/25/22 06/25/22 History Lactulose 20 gm PO DAILY 06/25/22 06/25/22 History Magnesium Hydroxide [Milk of 2,400 mg PO DAILY 06/25/22 06/25/22 History Magnesia] Magnesium Hydroxide [Milk of 2,400 mg PO Q48H PRN 06/25/22 06/25/22 History Magnesia] Na Phos,M-B/Na Phos,Di-Ba [Fleet 133 ml RECTAL Q72H PRN 06/25/22 06/25/22 History Adult] Oxybutynin Chloride [Oxybutynin 10 mg PO DAILY 06/25/22 06/25/22 History Chloride ER] Prostat Sugar Free 30 ml PO DAILY 06/25/22 06/25/22 History bisacodyL 10 mg RECTAL Q48H PRN 06/25/22 06/25/22 History Allergies Allergy/AdvReac Type Severity Reaction Status Date / Time Penicillins Allergy Unknown Verified 06/25/22 19:48 Childhood/Patient went into a coma Physical Exam Vitals: Vital Signs Temp Pulse Resp BP Pulse Ox 06/28/22 08:00 97.8 F 68 18 111/71 97 06/28/22 02:00 97.7 F 82 17 110/71 94 L 06/27/22 20:00 97.8 F 76 17 122/71 96 06/27/22 15:11 97 Intake and Output 06/27/22 06/28/22 06/28/22 22:59 06:59 14:59 Intake Total 200 240 Output Total 400 1300 400 Balance -200 -1060 -400 Intake: Oral 200 240 Output: Urine 400 1300 400 Other: # Bowel Movements 0 Weight 117.027 kg General: Well developed, well nourished male. No acute distress. Appears fatigued. HEENT: Head is atraumatic, normocephalic Sclerae are clear. Pupils equal, round and reactive to light bilaterally. CV: Heart irregular rhythm, rate controlled, positive S1 and S2. Bilateral radial pulses +2, bilateral post tibial pulses +1 Lungs: DIminished . No wheezes rales or rhonchi. Respirations even and nonlabored. On RA Abdomen/GI: Soft. Bowel sounds present in all 4 quadrants. Bowel sounds normoactive. No abdominal tenderness. Musculoskeletal/ Extremities: ZAPATA, + generalized weakness. No joint swelling or deformity. Vascular: LE Albert, + 2 bilateral LE edema. Skin: Warm and dry. Bilateral LE dry and scaly. Multiple wounds to LE. Multiple bruises to bilateral UE. Neurologic: Awake, alert and oriented times 3. CN II-XII grossly intact. No focal deficits. Psychiatric: Angry Results CBC & Chem 7: 06/28/22 06:46 06/29/22 06:59 Labs: Abnormal Lab Results - Last 24 Hours (Table) 06/27/22 06/27/22 06/27/22 Range/Units 06:01 16:47 20:52 RBC (4.40-5.60) X 10*6/uL Hgb (13.0-17.0) g/dL MCHC (32.0-37.0) g/dL RDW (11.5-14.5) % Sodium (137-145) mmol/L Potassium (3.5-5.1) mmol/L Chloride (98-107) mmol/L Carbon Dioxide (22-30) mmol/L BUN (9-20) mg/dL Creatinine (0.66-1.25) mg/dL Glucose (74-99) mg/dL POC Glucose (mg/dL) 192 H 301 H (70-110) mg/dL Hemoglobin A1c 8.6 H (0.0-6.0) % Calcium (8.4-10.2) mg/dL Magnesium (1.5-2.4) mg/dL Total Bilirubin (0.30-1.20) mg/dL Conjugated Bilirubin (0.20-0.40) mg/dL Unconjugated Bilirubin (0.20-1.00) mg/dL Alkaline Phosphatase (41-126) U/L Albumin (3.8-4.9) g/dL Albumin/Globulin Ratio (1.60-3.17) g/dL 06/28/22 06/28/22 06/28/22 Range/Units 06:46 06:46 06:46 RBC 4.26 L (4.40-5.60) X 10*6/uL Hgb 12.7 L (13.0-17.0) g/dL MCHC 31.4 L (32.0-37.0) g/dL RDW 15.7 H (11.5-14.5) % Sodium 128 L (137-145) mmol/L Potassium 3.1 L (3.5-5.1) mmol/L Chloride 89 L (98-107) mmol/L Carbon Dioxide 33 H (22-30) mmol/L BUN 87 H (9-20) mg/dL Creatinine 1.45 H (0.66-1.25) mg/dL Glucose 150 H (74-99) mg/dL POC Glucose (mg/dL) (70-110) mg/dL Hemoglobin A1c (0.0-6.0) % Calcium 8.2 L (8.4-10.2) mg/dL Magnesium 3.2 H (1.5-2.4) mg/dL Total Bilirubin 2.10 H (0.30-1.20) mg/dL Conjugated Bilirubin 0.86 H (0.20-0.40) mg/dL Unconjugated Bilirubin 1.25 H (0.20-1.00) mg/dL Alkaline Phosphatase 134 H (41-126) U/L Albumin 3.4 L (3.8-4.9) g/dL Albumin/Globulin Ratio 1.15 L (1.60-3.17) g/dL 06/28/22 06/28/22 Range/Units 07:10 11:45 RBC (4.40-5.60) X 10*6/uL Hgb (13.0-17.0) g/dL MCHC (32.0-37.0) g/dL RDW (11.5-14.5) % Sodium (137-145) mmol/L Potassium (3.5-5.1) mmol/L Chloride (98-107) mmol/L Carbon Dioxide (22-30) mmol/L BUN (9-20) mg/dL Creatinine (0.66-1.25) mg/dL Glucose (74-99) mg/dL POC Glucose (mg/dL) 172 H 229 H (70-110) mg/dL Hemoglobin A1c (0.0-6.0) % Calcium (8.4-10.2) mg/dL Magnesium (1.5-2.4) mg/dL Total Bilirubin (0.30-1.20) mg/dL Conjugated Bilirubin (0.20-0.40) mg/dL Unconjugated Bilirubin (0.20-1.00) mg/dL Alkaline Phosphatase (41-126) U/L Albumin (3.8-4.9) g/dL Albumin/Globulin Ratio (1.60-3.17) g/dL Chest x-ray: report reviewed Assessment and Plan Assessment: Reason for consult - Goals of care Social * 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 Patient was hospitalzed 06/06-08/15 and discharged to a [facility]. He has not been back home since. * Who do you reside with - * ETOH - Very rare * Tobacco - Never smoked * Illicit drugs - Never Spiritual/Cultural * A spiritual person - Yes * Gnosticism - Yazidism, not currently practicing * Belong to a particular episcopalian - No * Beliefs a source of comfort and strength - Yes * Church or cultural practices restrictions - No * EOL considerations/rituals? No Functional Assessment * Able to walk independently - Yes, however has been having falls * Assistive devices - walker * Able to use the bathroom independently - No * Continent - Yes * Require assistance bathing- Yes * Able to feed self - Yes * Who prepares meals - /[facility] staff * How many meals a day eaten - 2 * What percentage of meals eaten daily - Very little intake * Able to clean house/do laundry - No * Transportation - * Able to shop - No * Who manages medications - Patient/[facility] * Who manages finances - PPS score - 50% Psychological/Emotional * Dementia present - No * Insight and judgment - Intact * Depression - No * Suicidal thoughts - No * Good support system - Yes, family. All 4 children live in [facility]. * Patients goals - Optimize functionality * Frequent hospitalizations - No * Desire to keep coming back to the hospital for treatment - Yes Symptoms * Pain - 0/10, continue Tylenol prn, Zyloprim, and Vimpat * Fatigue - + generalized weakness and fatigue,continue PT/OT * SOB - No, continue albuterol, flovent, flonase, and fluid restrictions * Insomnia - No * N/V - + Nausea, + dry heaves. Continue Zorfan prn * Anxiety - No * Depression - No * Confusion - + confusion at times. Patient aware of his own confusion. Correction of Na levels per nephrology * Agitation - + Mild agitation * Hallucinations - + intermittent hallucinations, reports seeing dogs in his hospital room last night * Appetite/weight loss - +loss of appetite, food does not appeal to his sight, smell, or taste. No recent weight loss. Continue consistent carbohydrate diet and Ensure BIDWM * Dysphagia -Yes, reports coughing and food "going sown wrong pipe" at times, hospitalist group notified, recommend swallow eval * Constipation - + constipation. LBM 8/. Continue colace and lactulose * Incontinence - No, voids per urinal, continue proscar and ditropan * Itch - No Plan: Summary/Goals - Patient sitting up in the chair and appears lethargic. His , Sneha, is at the bedside. They were educated on Palliative care philosophies and services. Education was also provided about the patient's multiple co-morbidities and current diagnosis. The patient states that he is angry and not in a good mood. He is able to answer all questions appropriately, but admits to not being able to follow conversations and being confused at times. He said that he is not angry at anyone in particular, just frustrated with the current situation. He feels as if he is not getting better. He stated he was doing everything right, what they told him to do after his last hospitalization, and still ended up back in the hospital. He also reports that he sometimes hallucinates and saw dogs in his hospital room last night. He states his goal is to optimize his functionality. He would like to get stronger and go back home to be with his and dog. He will "fight to the end" because he is the head of the family and people depend on him. He would like to return to the hospital if he needs to for treatment. He "is not ready to give up". The patient and his are agreeable that OP palliative care would be beneficial. They understand that more than likely it would have to occur when he is discharged form rehab. OP palliative care contact information given to Sneha. sales relationship manager, Olga, notified. Recommendations - Discharge to [facility], then OP palliative care once home Advanced Directives - None on file, information provided Code Status - DNR Thank you for this consult Carlene Zimmer [facility] Palliative Care [facility] [id number] Email: [email or web address] Time with Patient: Greater than 30
--- NOTE | 2022-06-29 12:55 | P.PN ---
Subjective Progress Note Date: 06/29/22 This is a 72 year old male with history of persistent atrial fibrillation and cardiomyopathy with EF 25%. Patient was recently hospitalized for acute heart failure and was discharge to [facility] for rehab. He presents to the with concern for fall x 2 on and Sat with reports of fatigue, weakness and hallucinations. Patient today is feeling slightly better. Patient was also manually disimpacted on . He has not had BM but is passing alot of gas. Abdomen is soft and nontender. Cardiology has signed off, nephrology following patient. IV fluids have been discontinued, patient continues on 1200 CC fluid restriction. Diuretics continue on hold. 06/29/2022 Patient is sitting up in chair with at bedside. He has not had a BM since [place]. We will check a flat plate abdomen. He is passing gas. He remains fatigued overall but states his spirits are better today. His is f rustrated. He continues to report daytime hallucinations, remains alert x3. Will check an ammonia level. Creatinine has improved today to 1.33, sodium 130. Potassium is 3.2, which is being replaced. Magnesium 3.0. Continues off diuretics. He does also complain of dysphagia, will consult speech therapy. He is afebrile, heart rate 64, blood pressure 109/67. Review of Systems Constitutional: Reports fatigue, denied any fever. Cardio vascular: denied any chest pain, palpitations Gastrointestinal: denied any vomiting, diarrhea, reports nausea, no BM. Passing gas. Pulmonary: Denied any shortness of breath cough Neurologic denied any new focal deficits All inpatient medications were reviewed and appropriate changes in these medications as dictated in the interval history and assessment and plan. PHYSICAL EXAMINATION: GENERAL: The patient is alert and oriented x3, not in any acute distress. Well developed, well nourished. Fatigued, pale. HEENT: Pupils are round and equally reacting to light. EOMI. No scleral icterus. No conjunctival pallor. Normocephalic, atraumatic. No pharyngeal erythema. No thyromegaly. CARDIOVASCULAR: S1 and S2 present. No murmurs, rubs, or gallops. PULMONARY: Chest is clear to auscultation, no wheezing or crackles. ABDOMEN: Soft, nontender, nondistended, normoactive bowel sounds. No palpable organomegaly. MUSCULOSKELETAL: No joint swelling or deformity. EXTREMITIES: No cyanosis, clubbing, or pedal edema. NEUROLOGICAL: Cranial nerves grossly intact. No focal neurological deficit. SKIN: No rashes. Chronic hyperpigmentation bilateral lower extremity. Assessment and Plan Assessment Acute metabolic encephalopathy multifocal secondary to dehydration, acute kidney injury, improving Fecal impaction Acute on chronic kidney disease Troponin leak secondary to MARIALUISA Hyponatremia, hypovolemic from poor oral intake, diuresis Hypokalemia Ischemic Cardiomyopathy Chronic systolic and diastolic CHF with EF 25-30%, no acute exacerbation Permanent atrial fibrillation Hypertension History COPD/Asthma Diabetes Mellitus Type 2 Chronic peripheral edema History B Cell Lymphoma status post chemotherapy Coronary artery disease status post PCI GI Prophylaxis DVT Prophylaxis NO CODE Plan Continue with 1200 CC fluid restriction, IV fluids discontinued Lactulose for BM Abdomen xray Replace potassium per protocol Appreciate nephrology consultation Follow up with cardiology outpatient Palliative care consultation Repeat BMP in AM [facility] on discharge when medically stable The impression and plan of care has been dictated by Alisha Gardner Nurse Practitioner as directed. Dr. Domenica MD I have performed a history and physical examination and medical decision making of this patient, discussed the same with the dictator, and agree with the dictators assessment and plan as written, documented as a scribe. Based on total visit time, I have performed more than 50% of this visit. Objective - Vital Signs Vital signs: Vital Signs Temp 97.7 F 06/29/22 07:35 Pulse 64 06/29/22 07:35 Resp 15 06/29/22 07:35 BP 109/67 06/29/22 07:35 Pulse Ox 97 06/29/22 07:35 FiO2 Intake & Output 06/28/22 06/29/22 06/29/22 18:59 06:59 18:59 Intake Total 444 240 120 Output Total 400 750 100 Balance 44 -510 20 Intake: Oral 444 240 120 Output: Urine 400 750 100 Other: Voiding Method Urinal # Voids 1 - Labs CBC & Chem 7: 06/28/22 06:46 06/29/22 06:59 Labs: Abnormal Lab Results - Last 24 Hours (Table) 06/28/22 06/28/22 06/28/22 Range/Units 14:42 16:53 21:33 Sodium (137-145) mmol/L Potassium 3.3 L (3.5-5.1) mmol/L Chloride (98-107) mmol/L BUN (9-20) mg/dL Creatinine (0.66-1.25) mg/dL Glucose (74-99) mg/dL POC Glucose (mg/dL) 300 H 201 H (70-110) mg/dL Calcium (8.4-10.2) mg/dL Magnesium (1.6-2.3) mg/dL 06/29/22 06/29/22 06/29/22 Range/Units 06:35 06:59 11:07 Sodium 130 L (137-145) mmol/L Potassium 3.2 L (3.5-5.1) mmol/L Chloride 94 L (98-107) mmol/L BUN 77 H (9-20) mg/dL Creatinine 1.33 H (0.66-1.25) mg/dL Glucose 166 H (74-99) mg/dL POC Glucose (mg/dL) 167 H 255 H (70-110) mg/dL Calcium 8.3 L (8.4-10.2) mg/dL Magnesium 3.0 H (1.6-2.3) mg/dL Assessment and Plan Time with Patient: Less than 30
[2022-06-29 16:16] LABS: Glucose,Whole Blood 294 mg/dL (70-110)
--- NOTE | 2022-06-29 17:51 | XR ---
EXAMINATION TYPE: XR abdomen 1V DATE OF EXAM: 06/29/2022 Comparison: None Clinical History: 72-year-old male constipation Findings: Partially visualized left internal artery biopsy. Gassy colon with small air-fluid levels in the righ t side of the abdomen. No dilated small bowel loops. No evidence for free intraperitoneal air. Impression: Gassy colon with air-fluid levels in the right side of the colon. Overall nonobstructive bowel gas pa ttern at this time. Consider liquid stool relating to generalized ileus or enteritis. Follow-up as cl inically indicated.
[2022-06-29 21:36] LABS: Glucose,Whole Blood 389 mg/dL (70-110)
[2022-06-29] MEDS: ATORVASTATIN 40 MG TAB PO SCH (22:03)
[2022-06-29] MEDS: SENNOSIDES-DOCUSATE SODIUM 1 EACH TAB PO SCH (22:03)
[2022-06-29] MEDS: INSULIN DETEMIR (LEVEMIR) 100 UNIT/ML SYR SQ SCH (22:04)
[2022-06-30] MEDS: LEVOTHYROXINE 50 MCG TAB PO SCH (06:29)
[2022-06-30 07:06] LABS: Glucose,Whole Blood 185 mg/dL (70-110)
[2022-06-30] MEDS: ONDANSETRON 4 MG/2 ML VIAL IVP PRN (07:34)
[2022-06-30] MEDS: INSULIN ASPART (NovoLOG) 100 UNIT/ML VIAL SQ SCH ×7 (07:34→22:56)
[2022-06-30] MEDS: FLUTICASONE 110 MCG INHALER INHALATION SCH ×2 (08:14→19:27)
[2022-06-30 08:44] LABS: African American GFR (CKD) 53 (>60 ml/min/1.73 sqM); Anion Gap 8 mmol/L; Blood Urea Nitrogen 66 mg/dL (9-20); Calcium 8.7 mg/dL (8.4-10.2); Carbon Dioxide 29 mmol/L (22-30); Chloride 94 mmol/L (98-107); Glucose 183 mg/dL (74-99); Non-African American GFR(CKD) 46 (>60 ml/min/1.73 sqM); Sodium 131 mmol/L (137-145)
[2022-06-30] MEDS: METOCLOPRAMIDE 5 MG/ML 2 ML VIAL IVP SCH ×3 (09:16→17:37)
[2022-06-30] MEDS ORDERED: FUROSEMIDE 10 MG/ML 4 ML VIAL IV STA (09:37)
--- NOTE | 2022-06-30 09:38 | P.PN ---
Subjective Patient is seen in follow-up for acute kidney injury on chronic kidney disease. Renal function slightly worse. BUN trending down. IV fluids stopped 06/28/2022. Nonoliguric. Oral intake poor. Still having nausea at times. Hemodynamically stable. Did have 1 episode of hematuria last night but resolved this morning. Vital signs are stable. General: Awake. No acute distress. HEENT: Head exam is unremarkable. LUNGS: Breath sounds decreased. HEART: Rate and Rhythm are regular. ABDOMEN: Soft, no distention. Nontender. EXTREMITITES: 1+ edema. Chronic changes noted. Objective - Vital Signs Vital signs: Vital Signs Temp 97.8 F 06/30/22 07:37 Pulse 76 06/30/22 07:37 Resp 17 06/30/22 07:37 BP 111/78 06/30/22 07:37 Pulse Ox 97 06/30/22 07:37 FiO2 Intake & Output 06/29/22 06/30/22 06/30/22 18:59 06:59 18:59 Intake Total 360 590 Output Total 950 Balance -590 590 Intake: Oral 360 590 Output: Urine 950 Other: Voiding Method Urinal Urinal # Voids 1 - Labs CBC & Chem 7: 06/28/22 06:46 06/30/22 08:02 Labs: Abnormal Lab Results - Last 24 Hours (Table) 06/29/22 06/29/22 06/29/22 Range/Units 11:07 16:14 21:34 Sodium (137-145) mmol/L Chloride (98-107) mmol/L BUN (9-20) mg/dL Creatinine (0.66-1.25) mg/dL Glucose (74-99) mg/dL POC Glucose (mg/dL) 255 H 294 H 389 H (70-110) mg/dL Magnesium (1.6-2.3) mg/dL 06/30/22 06/30/22 Range/Units 07:05 08:02 Sodium 131 L (137-145) mmol/L Chloride 94 L (98-107) mmol/L BUN 66 H (9-20) mg/dL Creatinine 1.50 H (0.66-1.25) mg/dL Glucose 183 H (74-99) mg/dL POC Glucose (mg/dL) 185 H (70-110) mg/dL Magnesium 3.0 H (1.6-2.3) mg/dL Microbiology - Last 24 Hours (Table) 06/29/22 19:21 Urine Culture - Preliminary Urine,Clean Catch Assessment and Plan Plan: Assessment: 1. Acute kidney injury mostly prerenal secondary to hypovolemia from diuretics. Renal function slightly worse. Creatinine 1.5 today. Nonoliguric. UA benign. Elevated BUN due to hypovolemia. BUN trending down. No evidence of GI bleed. Not on steroids. 2. Chronic systolic CHF with ejection fraction of 25-30% with mild to moderate aortic regurgitation, moderate mitral and tricuspid regurgitation and moderate pulmonary hypertension. 3. Chronic kidney disease stage IIIB with baseline creatinine in the range of 1.5-1.7 secondary to nephrosclerosis. UA benign. 4. Hypokalemia from diuretics and poor intake. Replaced. Improved. 5. Hypovolemic hyponatremia. Was also taking metolazone which can induce hyponatremia. Oral intake also poor. Better. 6. Chronic kidney disease mineral bone disease maintained on calcitriol. 7. Hypermagnemesia. Was taking milk of magnesia outpatient. Stable. 8. Lower extremity edema. Plan: Off IV fluids. Lasix 40 mg IV once today. Encouraged oral intake. 1200 mL fluid restriction. Avoid nephrotoxins. Stopped Fleet enemas. No evidence of fluid overload on chest x-ray. Avoid magnesium containing compounds. If develops hematuria again, would recommend consulting urology. Follow-up repeat UA and culture.
[2022-06-30] MEDS: allopurinoL 300 MG TAB PO SCH (10:25)
[2022-06-30] MEDS: LACOSAMIDE 50 MG TABLET PO SCH ×2 (10:25→23:01)
[2022-06-30] MEDS: FOLIC ACID 1 MG TAB PO SCH (10:26)
[2022-06-30] MEDS: APIXABAN 2.5 MG TABLET PO SCH ×2 (10:26→17:14)
[2022-06-30] MEDS: FAMOTIDINE 20 MG TAB PO SCH (10:26)
[2022-06-30] MEDS: FINASTERIDE 5 MG TAB PO SCH (10:26)
[2022-06-30] MEDS: METOPROLOL TARTRATE 12.5 MG TAB PO SCH (10:27)
[2022-06-30] MEDS: OXYBUTYNIN 10 MG TAB.ER.24 PO SCH (10:27)
[2022-06-30] MEDS: LACTULOSE 20 GM/30 ML CUP PO SCH ×4 (10:53→23:06)
[2022-06-30] MEDS: SENNOSIDES-DOCUSATE SODIUM 1 EACH TAB PO SCH ×2 (10:53→23:02)
[2022-06-30 10:54] LABS: Appearance,Urine Clear (Clear); Bacteria,Urine Rare /hpf; Bilirubin,Urine Negative (Negative); Blood,Urine Small (Negative); Color,Urine Yellow; Glucose,Urine (UA) 4+ (Negative); Ketones,Urine Negative (Negative); Leukocyte Esterase,Urine Moderate (Negative); Mucus,Urine Rare /hpf; Nitrite,Urine Negative (Negative); PH, Urine 5.5 (5.0-8.0); Protein,Urine Trace (Negative); RBC,Urine 9 /hpf (0-5); Specific Gravity,Urine 1.019 (1.001-1.035); Squamous Epithelial Cell,Urine <1 /hpf (0-4); Urobilinogen,Urine <2.0 mg/dL (<2.0); WBC,Urine 17 /hpf (0-5)
[2022-06-30] MEDS: POTASSIUM CHLORIDE ER 20 MEQ TAB.ER PO SCH (10:54)
[2022-06-30] MEDS: FLUTICASONE 50MCG/SPRAY NASAL 16GM EA NOSTRIL SCH ×2 (10:54→23:00)
[2022-06-30 11:35] LABS: Anisocytosis Slight; Basophils % (A) 0 %; Eosinophils # (A) 0.1 k/uL (0-0.7); Eosinophils % (A) 1 %; HCT 45.2 % (39.0-53.0); HGB 14.3 gm/dL (13.0-17.5); Hypochromasia Slight; Lymphocytes # (A) 1.4 k/uL (1.0-4.8); Lymphocytes % (A) 13 %; MCH 31.6 pg (25.0-35.0); MCHC 31.6 g/dL (31.0-37.0); Macrocytosis Slight; Mean Platelet Volume 10.9; Monocytes # (A) 0.4 k/uL (0-1.0); Monocytes % (A) 4 %; Neutrophils # (A) 8.5 k/uL (1.3-7.7); Neutrophils % (A) 80 %; Platelet Count 154 k/uL (150-450); RBC 4.52 m/uL (4.30-5.90); RDW 16.1 % (11.5-15.5); WBC 10.6 k/uL (3.8-10.6)
[2022-06-30 11:37] LABS: Glucose,Whole Blood 377 mg/dL (70-110)
[2022-06-30] MEDS ORDERED: bisacodyL 10 MG SUPP RECTAL STA (12:17)
--- NOTE | 2022-06-30 12:21 | P.PN ---
Subjective Progress Note Date: 06/30/22 Principal diagnosis: Dehydration, constipation This is a pleasant 72 years old male with past medical history of atrial fibrillation on Eliquis, Chronic systolic CHF, cardiomyopathy (EF of 25-30%), hypothyroidism, hypertension, hyperlipidemia, CAD, COPD, osteoarthritis, peripheral vascular disease, peripheral neuropathy, chronic back pain, BPH, diverticular disease, history of B-cell lymphoma in 2016 (completed chemotherapy in 2017). He also has a history of CKD stage IIIB with a baseline creatinine of 1.5-1.7. He was recently hospitalized for a CHF exacerbation and discharged to a [facility]. While in rehab he was fluid restricted and was continued with diuretics. He was transferred to the on 06/25/33 from [facility] with concern for falls, constipation, and weakness. CT of the abdomen and pelvis done at [facility] done without IV contrast for abdominal pain and rectal pressure and constipation to rule out SBO showed no evidence of intestinal obstruction, there is extensive colonic stool content ,Fat-containing umbilical hernia , no evidence of renal or ureteral calcification. Patient was also manually disimpacted in [place]. Cardiology had been consulted for elevated troponins. They have since ruled out an acute cardiac event and have signed off. Per nephrology patient with acute kidney injury, mostly prerenal, secondary to hypovolemia from diuretics. Renal function improving. IV fluids have been discontinued, patient continues on 1200ml fluid restriction. Diuretics are on hold. 8/3 Patient sitting up in the chair and appears lethargic. His , Bina, is at the bedside. They were educated on Palliative care philosophies and services. Education was also provided about the patient's multiple co- morbidities and current diagnosis. The patient states that he is angry and not in a good mood. He is able to answer all questions appropriately, but admits to not being able to follow conversations and being confused at times. He said that he is not angry at anyone in particular, just frustrated with the current situation. He feels as if he is not getting better. He stated he was doing everything right, what they told him to do after his last hospitalization, and still ended up back in the hospital. He also reports that he sometimes hallucinates and saw dogs in his hospital room last night. He states his goal is to optimize his functionality. He would like to get stronger and go back home to be with his and dog. He will "fight to the end" because he is the head of the family and people depend on him. He would like to return to the hospital if he needs to for treatment. He "is not ready to give up". The patient and his are agreeable that OP palliative care would be beneficial. They understand that more than likely it would have to occur when he is discharged form rehab. OP palliative care contact information given to Bina. cell manager, Olga, notified. Objective - Vital Signs Vital signs: Vital Signs Temp 97.8 F 06/30/22 07:37 Pulse 76 06/30/22 07:37 Resp 17 06/30/22 07:37 BP 111/78 06/30/22 07:37 Pulse Ox 97 06/30/22 07:37 FiO2 Intake & Output 06/29/22 06/30/22 06/30/22 18:59 06:59 18:59 Intake Total 360 590 Output Total 950 100 Balance -590 590 -100 Intake: Oral 360 590 Output: Urine 950 100 Other: Voiding Method Urinal Urinal # Voids 1 - Labs CBC & Chem 7: 06/30/22 08:02 06/30/22 08:02 Labs: Abnormal Lab Results - Last 24 Hours (Table) 06/29/22 06/29/22 06/30/22 Range/Units 16:14 21:34 07:05 RDW (11.5-15.5) % Neutrophils # (1.3-7.7) k/uL Sodium (137-145) mmol/L Chloride (98-107) mmol/L BUN (9-20) mg/dL Creatinine (0.66-1.25) mg/dL Glucose (74-99) mg/dL POC Glucose (mg/dL) 294 H 389 H 185 H (70-110) mg/dL Magnesium (1.6-2.3) mg/dL Urine Protein (Negative) Urine Glucose (UA) (Negative) Urine Blood (Negative) Ur Leukocyte Esterase (Negative) Urine RBC (0-5) /hpf Urine WBC (0-5) /hpf Urine Bacteria (None) /hpf Urine Mucus (None) /hpf 06/30/22 06/30/22 06/30/22 Range/Units 08:02 08:02 09:33 RDW 16.1 H (11.5-15.5) % Neutrophils # 8.5 H (1.3-7.7) k/uL Sodium 131 L (137-145) mmol/L Chloride 94 L (98-107) mmol/L BUN 66 H (9-20) mg/dL Creatinine 1.50 H (0.66-1.25) mg/dL Glucose 183 H (74-99) mg/dL POC Glucose (mg/dL) (70-110) mg/dL Magnesium 3.0 H (1.6-2.3) mg/dL Urine Protein Trace H (Negative) Urine Glucose (UA) 4+ H (Negative) Urine Blood Small H (Negative) Ur Leukocyte Esterase Moderate H (Negative) Urine RBC 9 H (0-5) /hpf Urine WBC 17 H (0-5) /hpf Urine Bacteria Rare H (None) /hpf Urine Mucus Rare H (None) /hpf 06/30/22 Range/Units 11:36 RDW (11.5-15.5) % Neutrophils # (1.3-7.7) k/uL Sodium (137-145) mmol/L Chloride (98-107) mmol/L BUN (9-20) mg/dL Creatinine (0.66-1.25) mg/dL Glucose (74-99) mg/dL POC Glucose (mg/dL) 377 H (70-110) mg/dL Magnesium (1.6-2.3) mg/dL Urine Protein (Negative) Urine Glucose (UA) (Negative) Urine Blood (Negative) Ur Leukocyte Esterase (Negative) Urine RBC (0-5) /hpf Urine WBC (0-5) /hpf Urine Bacteria (None) /hpf Urine Mucus (None) /hpf Microbiology - Last 24 Hours (Table) 06/29/22 19:21 Urine Culture - Preliminary Urine,Clean Catch Assessment and Plan Assessment: Symptoms * Pain - 0/10, continue Tylenol prn, Zyloprim, and Vimpat * Fatigue - + generalized weakness and fatigue,continue PT/OT * SOB - + with exertion, continue albuterol, flovent, flonase, and fluid restrictions * Insomnia - No * N/V - + Nausea, + dry heaves. Continue Zorfan prn, added Reglan * Anxiety - No * Depression - No * Confusion - + confusion at times. Patient aware of his own confusion. Correction of Na levels per nephrology * Agitation - + Mild agitation * Hallucinations - + intermittent hallucinations, reports seeing dogs in his hospital room last night * Appetite/weight loss - +loss of appetite, food does not appeal to his sight, smell, or taste. No recent weight loss. Continue consistent carbohydrate diet and Ensure BIDWM. * Dysphagia -Yes, reports coughing and food "going sown wrong pipe" at times, hospitalist group notified, recommend swallow eval * Constipation - + constipation. LBM 06/27. Continue senokot and lactulose. Reglan added * Incontinence - No, voids per urinal, continue proscar and ditropan * Itch - No Plan: Summary/Goals - Patient sitting up in chair with at bedside. He states he had some blood in his urine yesterday. The maintenance supervisor mechanical had already rounded. The patient's , Bina, asked the nurse to page him so she could speak to him. The patient is still complaining of nausea. Despite Lactulose, senokot-s, he has not had a bowel movement since his admission. Reglan IV added. The patient's outlook today is different. He states that he is very frustrated. Every time he thinks he is making progress, he has more set backs. He is not sure how much fight he has left in himself. Encouraged patient and provided emotional support. The plan remains to send him to [facility] for rehab when discharged. Recommendations - Discharge to [facility], then OP palliative care once home Advanced Directives - None on file, information provided Code Status - DNR Thank you for this consult Carlene Zimmer [facility] Palliative Care [facility] [id number] Email: [email or web address] Time with Patient: Greater than 30
--- NOTE | 2022-06-30 14:35 | US ---
EXAMINATION TYPE: US venous doppler duplex LE BI DATE OF EXAM: 06/30/2022 1:13 PM COMPARISON: NONE CLINICAL HISTORY: edema, rule out dvt. Edema some limitations due to swelling. SIDE PERFORMED: Bilateral TECHNIQUE: The lower extremity deep venous system is examined utilizing real time linear array sonog lelia with graded compression, doppler sonography and color-flow sonography. VESSELS IMAGED: Common Femoral Vein Deep Femoral Vein Greater Saphenous Vein * Femoral Vein Popliteal Vein Small Saphenous Vein * Limited examination due to edema. Right Leg: Negative for DVT Left Leg: Negative for DVT Grayscale, color doppler, spectral doppler imaging performed of the deep veins of the lower extremiti es. There is normal flow, compressibility, vascular waveforms. IMPRESSION: * No evidence of deep venous thrombosis in both lower extremities. * Bilateral lower extremity edema.
--- NOTE | 2022-06-30 15:36 | P.PN ---
Subjective Progress Note Date: 06/30/22 This is a 72 year old male with history of persistent atrial fibrillation and cardiomyopathy with EF 25%. Patient was recently hospitalized for acute heart failure and was discharge to [facility] for rehab. He presents to the with concern for fall x 2 on and Sat with reports of fatigue, weakness and hallucinations. Patient today is feeling slightly better. Patient was also manually disimpacted on . He has not had BM but is passing alot of gas. Abdomen is soft and nontender. Cardiology has signed off, nephrology following patient. IV fluids have been discontinued, patient continues on 1200 CC fluid restriction. Diuretics continue on hold. 06/29/2022 Patient is sitting up in chair with at bedside. He has not had a BM since [place]. We will check a flat plate abdomen. He is passing gas. He remains fatigued overall but states his spirits are better today. His is f rustrated. He continues to report daytime hallucinations, remains alert x3. Will check an ammonia level. Creatinine has improved today to 1.33, sodium 130. Potassium is 3.2, which is being replaced. Magnesium 3.0. Continues off diuretics. He does also complain of dysphagia, will consult speech therapy. He is afebrile, heart rate 64, blood pressure 109/67. 06/30/2022 Patient evaluated today sitting up in chair with at bedside. He has not had a BM, abdominal xray suggesting generalized ileus vs enteritis. We will give a suppository. He had an episode of vasquez blood in urine overnight, hgb stable today a 14 which went up from 2 days ago. He did have small blood in urine with UA showing moderate leukocyte esterase and 17 WBCs, patient has no urinary symptoms, culture is pending. Will monitor off antibiotics for now and monitor for further blood in urine. Continue low dose eliquis. He did have increase in peripheral edema and venous doppler ordered which negative for bilateral edema. Creatinine 1.50 today, he received a one time dose of IV lasix 40 mg. Blood glucose elevated, medications were adjusted. He remains afebrile, heart rate 60, blood pressure 106/57, 100% room air. Review of Systems Constitutional: Reports fatigue, denied any fever. Cardio vascular: denied any chest pain, palpitations Gastrointestinal: denied any vomiting, diarrhea, reports nausea, no BM. Passing gas. Pulmonary: Denied any shortness of breath cough Neurologic denied any new focal deficits All inpatient medications were reviewed and appropriate changes in these medications as dictated in the interval history and assessment and plan. PHYSICAL EXAMINATION: GENERAL: The patient is alert and oriented x3, not in any acute distress. Well developed, well nourished. Fatigued, pale. HEENT: Pupils are round and equally reacting to light. EOMI. No scleral icterus. No conjunctival pallor. Normocephalic, atraumatic. No pharyngeal erythema. No thyromegaly. CARDIOVASCULAR: S1 and S2 present. No murmurs, rubs, or gallops. PULMONARY: Chest is clear to auscultation, no wheezing or crackles. ABDOMEN: Soft, nontender, nondistended, normoactive bowel sounds. No palpable organomegaly. MUSCULOSKELETAL: No joint swelling or deformity. EXTREMITIES: No cyanosis, clubbing, +1 peripheral edema. NEUROLOGICAL: Cranial nerves grossly intact. No focal neurological deficit. SKIN: No rashes. Chronic hyperpigmentation bilateral lower extremity. Assessment and Plan Assessment Acute metabolic encephalopathy multifocal secondary to dehydration, acute kidney injury, improving Fecal impaction with ileus vs. enteritis on imaging Acute on chronic kidney disease Hematuria which seems to have cleared, continue to monitor Troponin leak secondary to MARIALUISA Hyponatremia, hypovolemic from poor oral intake, diuresis Hypokalemia, resolved Ischemic Cardiomyopathy Chronic systolic and diastolic CHF with EF 25-30%, no acute exacerbation Permanent atrial fibrillation Hypertension History COPD/Asthma Diabetes Mellitus Type 2 Chronic peripheral edema History B Cell Lymphoma status post chemotherapy Coronary artery disease status post PCI GI Prophylaxis DVT Prophylaxis NO CODE Plan Continue with 1200 CC fluid restriction, IV fluids discontinued Patient received one time dose IV lasix today Lactulose for BM Appreciate nephrology consultation Follow up with cardiology outpatient Palliative care consultation Repeat BMP in AM Urine culture pending [facility] on discharge when medically stable possibly in the next 24 to 48 hours The impression and plan of care has been dictated by Alisha Gardner Nurse Practitioner as directed. Dr. Domenica MD I have performed a history and physical examination and medical decision making of this patient, discussed the same with the dictator, and agree with the dictators assessment and plan as written, documented as a scribe. Based on total visit time, I have performed more than 50% of this visit. Objective - Vital Signs Vital signs: Vital Signs Temp 97.5 F L 06/30/22 14:46 Pulse 60 06/30/22 14:46 Resp 18 06/30/22 14:46 BP 106/57 06/30/22 14:46 Pulse Ox 100 06/30/22 14:46 FiO2 Intake & Output 06/29/22 06/30/22 06/30/22 18:59 06:59 18:59 Intake Total 360 590 894 Output Total 950 1100 Balance -590 590 -206 Intake: Oral 360 590 894 Output: Urine 950 1100 Other: Voiding Method Urinal Urinal # Voids 1 1 # Bowel Movements 1 - Labs CBC & Chem 7: 06/30/22 08:02 06/30/22 08:02 Labs: Abnormal Lab Results - Last 24 Hours (Table) 06/29/22 06/29/22 06/30/22 Range/Units 16:14 21:34 07:05 RDW (11.5-15.5) % Neutrophils # (1.3-7.7) k/uL Sodium (137-145) mmol/L Chloride (98-107) mmol/L BUN (9-20) mg/dL Creatinine (0.66-1.25) mg/dL Glucose (74-99) mg/dL POC Glucose (mg/dL) 294 H 389 H 185 H (70-110) mg/dL Magnesium (1.6-2.3) mg/dL Urine Protein (Negative) Urine Glucose (UA) (Negative) Urine Blood (Negative) Ur Leukocyte Esterase (Negative) Urine RBC (0-5) /hpf Urine WBC (0-5) /hpf Urine Bacteria (None) /hpf Urine Mucus (None) /hpf 06/30/22 06/30/22 06/30/22 Range/Units 08:02 08:02 09:33 RDW 16.1 H (11.5-15.5) % Neutrophils # 8.5 H (1.3-7.7) k/uL Sodium 131 L (137-145) mmol/L Chloride 94 L (98-107) mmol/L BUN 66 H (9-20) mg/dL Creatinine 1.50 H (0.66-1.25) mg/dL Glucose 183 H (74-99) mg/dL POC Glucose (mg/dL) (70-110) mg/dL Magnesium 3.0 H (1.6-2.3) mg/dL Urine Protein Trace H (Negative) Urine Glucose (UA) 4+ H (Negative) Urine Blood Small H (Negative) Ur Leukocyte Esterase Moderate H (Negative) Urine RBC 9 H (0-5) /hpf Urine WBC 17 H (0-5) /hpf Urine Bacteria Rare H (None) /hpf Urine Mucus Rare H (None) /hpf 06/30/22 Range/Units 11:36 RDW (11.5-15.5) % Neutrophils # (1.3-7.7) k/uL Sodium (137-145) mmol/L Chloride (98-107) mmol/L BUN (9-20) mg/dL Creatinine (0.66-1.25) mg/dL Glucose (74-99) mg/dL POC Glucose (mg/dL) 377 H (70-110) mg/dL Magnesium (1.6-2.3) mg/dL Urine Protein (Negative) Urine Glucose (UA) (Negative) Urine Blood (Negative) Ur Leukocyte Esterase (Negative) Urine RBC (0-5) /hpf Urine WBC (0-5) /hpf Urine Bacteria (None) /hpf Urine Mucus (None) /hpf Microbiology - Last 24 Hours (Table) 06/29/22 19:21 Urine Culture - Preliminary Urine,Clean Catch Assessment and Plan Time with Patient: Less than 30
[2022-06-30 17:10] LABS: Glucose,Whole Blood 218 mg/dL (70-110)
[2022-06-30 20:13] LABS: Glucose,Whole Blood 115 mg/dL (70-110)
[2022-06-30] MEDS: ATORVASTATIN 40 MG TAB PO SCH (23:01)
[2022-06-30] MEDS: INSULIN DETEMIR (LEVEMIR) 100 UNIT/ML SYR SQ SCH (23:02)
[2022-07-01] MEDS: METOCLOPRAMIDE 5 MG/ML 2 ML VIAL IVP SCH ×4 (00:10→17:19)
[2022-07-01] MEDS: ONDANSETRON 4 MG/2 ML VIAL IVP PRN (05:22)
[2022-07-01] MEDS: LEVOTHYROXINE 50 MCG TAB PO SCH (05:22)
[2022-07-01 07:05] LABS: Glucose,Whole Blood 141 mg/dL (70-110)
[2022-07-01] MEDS: INSULIN ASPART (NovoLOG) 100 UNIT/ML VIAL SQ SCH ×7 (07:27→22:15)
[2022-07-01] MEDS: FLUTICASONE 110 MCG INHALER INHALATION SCH ×2 (09:02→20:06)
[2022-07-01 09:16] LABS: African American GFR (CKD) 51 (>60 ml/min/1.73 sqM); Anion Gap 12 mmol/L; Blood Urea Nitrogen 69 mg/dL (9-20); Calcium 8.6 mg/dL (8.4-10.2); Carbon Dioxide 29 mmol/L (22-30); Chloride 88 mmol/L (98-107); Glucose 177 mg/dL (74-99); Magnesium 2.9 mg/dL (1.6-2.3); Non-African American GFR(CKD) 44 (>60 ml/min/1.73 sqM); Potassium 4.2 mmol/L (3.5-5.1); Sodium 129 mmol/L (137-145)
[2022-07-01] MEDS: LACTULOSE 20 GM/30 ML CUP PO SCH ×3 (09:26→22:17)
[2022-07-01] MEDS: SENNOSIDES-DOCUSATE SODIUM 1 EACH TAB PO SCH ×2 (09:26→22:17)
[2022-07-01] MEDS: METOPROLOL TARTRATE 12.5 MG TAB PO SCH (09:26)
[2022-07-01] MEDS: LACOSAMIDE 50 MG TABLET PO SCH ×2 (09:26→22:17)
[2022-07-01] MEDS: allopurinoL 300 MG TAB PO SCH (09:27)
[2022-07-01] MEDS: APIXABAN 2.5 MG TABLET PO SCH ×2 (09:27→17:23)
[2022-07-01] MEDS: FINASTERIDE 5 MG TAB PO SCH (09:27)
[2022-07-01] MEDS: FAMOTIDINE 20 MG TAB PO SCH (09:27)
[2022-07-01] MEDS: FOLIC ACID 1 MG TAB PO SCH (09:27)
[2022-07-01] MEDS: POTASSIUM CHLORIDE ER 20 MEQ TAB.ER PO SCH (09:27)
[2022-07-01] MEDS: OXYBUTYNIN 10 MG TAB.ER.24 PO SCH (09:27)
[2022-07-01] MEDS: FLUTICASONE 50MCG/SPRAY NASAL 16GM EA NOSTRIL SCH ×2 (09:28→22:16)
[2022-07-01] MEDS ORDERED: FUROSEMIDE 10 MG/ML 4 ML VIAL IV STA (09:32)
[2022-07-01] MEDS ORDERED: TOLVAPTAN 15 MG 1/2 TABLET PO ONE (09:32)
--- NOTE | 2022-07-01 09:32 | P.PN ---
Subjective Patient is seen in follow-up for acute kidney injury on chronic kidney disease. Renal function stable. BUN stable. Did receive a dose of IV Lasix yesterday. Nonoliguric. Oral intake poor. Nausea improved. Hemodynamically stable. No hematuria. Vital signs are stable. General: Awake. No acute distress. HEENT: Head exam is unremarkable. LUNGS: Breath sounds decreased. HEART: Rate and Rhythm are regular. ABDOMEN: Soft, no distention. Nontender. EXTREMITITES: 1+ edema. Chronic changes noted. Objective - Vital Signs Vital signs: Vital Signs Temp 98.0 F 07/01/22 07:39 Pulse 64 07/01/22 07:39 Resp 17 07/01/22 07:39 BP 105/70 07/01/22 07:39 Pulse Ox 95 07/01/22 07:39 FiO2 Intake & Output 06/30/22 07/01/22 07/01/22 18:59 06:59 18:59 Intake Total 894 Output Total 1500 250 Balance -606 -250 Intake: Oral 894 Output: Urine 1500 250 Other: Voiding Method Urinal Urinal # Voids 1 # Bowel Movements 1 - Labs CBC & Chem 7: 06/30/22 08:02 07/01/22 08:16 Labs: Abnormal Lab Results - Last 24 Hours (Table) 06/30/22 06/30/22 06/30/22 Range/Units 08:02 09:33 11:36 RDW 16.1 H (11.5-15.5) % Neutrophils # 8.5 H (1.3-7.7) k/uL Sodium (137-145) mmol/L Chloride (98-107) mmol/L BUN (9-20) mg/dL Creatinine (0.66-1.25) mg/dL Glucose (74-99) mg/dL POC Glucose (mg/dL) 377 H (70-110) mg/dL Magnesium (1.6-2.3) mg/dL Urine Protein Trace H (Negative) Urine Glucose (UA) 4+ H (Negative) Urine Blood Small H (Negative) Ur Leukocyte Esterase Moderate H (Negative) Urine RBC 9 H (0-5) /hpf Urine WBC 17 H (0-5) /hpf Urine Bacteria Rare H (None) /hpf Urine Mucus Rare H (None) /hpf 06/30/22 06/30/22 07/01/22 Range/Units 17:08 20:12 07:04 RDW (11.5-15.5) % Neutrophils # (1.3-7.7) k/uL Sodium (137-145) mmol/L Chloride (98-107) mmol/L BUN (9-20) mg/dL Creatinine (0.66-1.25) mg/dL Glucose (74-99) mg/dL POC Glucose (mg/dL) 218 H 115 H 141 H (70-110) mg/dL Magnesium (1.6-2.3) mg/dL Urine Protein (Negative) Urine Glucose (UA) (Negative) Urine Blood (Negative) Ur Leukocyte Esterase (Negative) Urine RBC (0-5) /hpf Urine WBC (0-5) /hpf Urine Bacteria (None) /hpf Urine Mucus (None) /hpf 07/01/22 Range/Units 08:16 RDW (11.5-15.5) % Neutrophils # (1.3-7.7) k/uL Sodium 129 L (137-145) mmol/L Chloride 88 L (98-107) mmol/L BUN 69 H (9-20) mg/dL Creatinine 1.54 H (0.66-1.25) mg/dL Glucose 177 H (74-99) mg/dL POC Glucose (mg/dL) (70-110) mg/dL Magnesium 2.9 H (1.6-2.3) mg/dL Urine Protein (Negative) Urine Glucose (UA) (Negative) Urine Blood (Negative) Ur Leukocyte Esterase (Negative) Urine RBC (0-5) /hpf Urine WBC (0-5) /hpf Urine Bacteria (None) /hpf Urine Mucus (None) /hpf Assessment and Plan Plan: Assessment: 1. Acute kidney injury mostly prerenal secondary to hypovolemia from diuretics. Renal function fairly stable. Nonoliguric. UA benign. Elevated BUN due to hypovolemia. BUN stable. No evidence of GI bleed. Not on steroids. 2. Chronic systolic CHF with ejection fraction of 25-30% with mild to moderate aortic regurgitation, moderate mitral and tricuspid regurgitation and moderate pulmonary hypertension. 3. Chronic kidney disease stage IIIB with baseline creatinine in the range of 1.5-1.7 secondary to nephrosclerosis. UA benign. 4. Hypokalemia from diuretics and poor intake. Replaced. Improved. 5. Hypovolemic hyponatremia. Was also taking metolazone which can induce hyponatremia. Oral intake also poor. Now hypervolemic. Sodium 129 today. 6. Chronic kidney disease mineral bone disease maintained on calcitriol. 7. Hypermagnemesia. Was taking milk of magnesia outpatient. Trending down. 8. Lower extremity edema. Plan: Repeat IV Lasix 40 mg once today. Samsca 7.5 mg once today. Encouraged oral intake. 1200 mL fluid restriction. Avoid nephrotoxins. Stopped Fleet enemas. Avoid magnesium containing compounds. If develops hematuria again, would recommend consulting urology.
[2022-07-01 11:31] LABS: Glucose,Whole Blood 234 mg/dL (70-110)
--- NOTE | 2022-07-01 16:28 | P.DS ---
Providers Date of admission: 06/25/22 20:18 Attending physician: Paris Kwan Consults: 06/25/22 20:18 Consult Physician Routine Consulting Provider: Kusum Carranza Consult Reason/Comments: known Do you want consulting provider notified?: Yes 06/28/22 11:16 Consult to Palliative Care Routine Consulting Provider: Carlene Zimmer Reason/Comments: palliative care info Do you want consulting provider notified?: Yes Primary care physician: Migue Yung [facility] Course: Diagnosis Acute metabolic encephalopathy multifocal secondary to dehydration, acute kidney injury, improving Fecal impaction with constipation, improved Acute on chronic kidney disease Hematuria which seems to have cleared, continue to monitor Troponin leak secondary to MARIALUISA Hyponatremia, hypovolemic from poor oral intake, diuresis Hypokalemia, resolved Ischemic Cardiomyopathy 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 Altered mental status has improved, hallucinations have resolved. Patient will discharge on 20 mg PO daily of torsemide and will repeat labs on monday BMP and magnesium level. Do not give fleet enema or milk of magnesium for constipation. Follow up with cardiology and primary care on discharge. Hospital Course This is a pleasant 73 mg medical history significant for chronic pain disease, ischemic cardiomyopathy, chronic heart failure with EF 25-30%, permanent atrial fibrillation, hypertension, COPD, asthma, diabetes mellitus, chronic peripheral edema, history B cell lymphoma postchemotherapy, coronary artery disease status post PCI. Patient is recently evaluated this hospital stay for left lower extremity cellulitis and was found to have an EF of 25-30%. He was evaluated cardiology and infectious disease was discharged to [facility] for rehab. Patient does have chronic kidney disease and follows with nephrology outpatient. He was discharged on diuretic as well as fluid restriction. Patient had fallen at rehab on and Monday and was with concern for altered mental status and confusion patient was reporting to have hallucinations visual. Patient did develop some constipation and was using Fleet enema as well as milk of magnesia on rehab for constipation. He presented to [facility] significant fecal impaction was manually disimpacted. He was sent to [facility] for further evaluation regarding elevated troponin level. Cardiology saw the patient in consultation and felt troponin level was mostly due to kidney disease and not an coronary syndrome. His diuretics placed on hold and patient was rehydrated and his creatinine improved. Sodium level had initally improved and then decreased to 129 and he was given a dose of samsca. Patient did have an increase in peripheral edema and doppler was completed which was negative for DVT. He received IV lasix x 2 days. He had some hematuria which there was blood found on urinalysis with spontaneous cleared. HGB was stable at 14.3 and no more evidence for hematuria. Patient will see urology outpatient if this returns. Urinating without difficulty. No dysuria, no urgency frequency, retention. 07/01/2022 Patient evaluated today sitting up in the chair with at the bedside. Altered mentation has resolved he has not had halluncinations for 2 days. He had 2 large soft bowel movements yesterday. He was given a dose of samsca today. No DVT bilateral on doppler. He will be resumed on torsemide 20 mg po daily. Magnesium was found to be elevated at 3.4 on admission and milk of magnesia discontinued will repeat magnesium level on Monday as well as repeat BMP for sodium follow up monday. Nephrology recommendation to continue on 40 fl oz fluid restriction per 24 hours. Urine culture negative so far. Lungs are clear, S1 S2 auscultated, abdomen is soft and nontender. He does have peripheral edema. No DVT, received a second dose of IV lasix today. Labs reviewed showing sodium 129, k 4.2, BUN 69, creatinine 1.54, magnesium 2.9. Please use medication reconciliation for list of current medications. Thank you for allowing us to be dispensing the care of this patient. Total time taken in discharge planning greater than 35 minutes The impression and plan of care has been dictated by Alisha Gardner Nurse Practitioner as directed. Dr. Domenica MD I have performed a history and physical examination and medical decision making of this patient, discussed the same with the dictator, and agree with the dictators assessment and plan as written, documented as a scribe. Based on total visit time, I have performed more than 50% of this visit. Patient Condition at Discharge: Fair Plan - Discharge Summary Discharge Rx Participant: No New Discharge Prescriptions: New Metoprolol Tartrate [Lopressor] 12.5 mg PO DAILY tab INSULIN ASPART (NovoLOG) [NovoLOG (formulary)] 12 unit SQ AC-TID each Torsemide [Demadex] 20 mg PO DAILY #30 tablet INSULIN ASPART (NovoLOG) [NovoLOG (formulary)] 0 unit SQ ACHS each Sennosides-Docusate Sodium [Senokot-S] 2 each PO DAILY PRN tab PRN Reason: Constipation Continue Finasteride 5 mg PO DAILY Fluticasone Nasal Duff [Flonase Nasal Duff] 1 spray EA NOSTRIL BID@0900,1700 Nitroglycerin Sl Tabs [Nitrostat] 0.4 mg SL Q5M PRN PRN Reason: Chest Pain allopurinoL [Zyloprim] 300 mg PO DAILY Empagliflozin [Jardiance] 10 mg PO DAILY Dulaglutide [Trulicity] 0.75 mg SQ RODRIGUEZ Beclomethasone Dip 80 Mcg/Puff [Qvar 80 mcg] 1 puff INHALATION RT- BID@0900,1700 Apixaban [Eliquis] 2.5 mg PO BID@0900,1700 Acetaminophen Tab [Tylenol] 650 mg PO Q6HR PRN tab PRN Reason: Fever And/ Or Pain Albuterol Nebulized [Ventolin Nebulized] 2.5 mg INHALATION RT-Q6H PRN ml PRN Reason: Shortness Of Breath bisacodyL 10 mg RECTAL Q48H PRN PRN Reason: Constipation Famotidine [Pepcid] 20 mg PO BID Atorvastatin [Lipitor] 40 mg PO HS Lactulose 20 gm PO DAILY Levothyroxine Sodium [Synthroid] 50 mcg PO DAILY@0600 Folic Acid 1 mg PO DAILY Ergocalciferol [Vitamin D2 (1250 Mcg = 71715 Iu)] 1,250 mcg PO Q14D calcitrioL [Calcitriol] 0.25 mcg PO MOFR Albuterol Sulfate [Proair Hfa] 1 puff INHALATION RT-Q6H PRN PRN Reason: Shortness Of Breath Prostat Sugar Free 30 ml PO DAILY Oxybutynin Chloride [Oxybutynin Chloride ER] 10 mg PO DAILY Lacosamide [Vimpat] 100 mg PO BID@0900,1700 #4 tab Changed Insulin Glargine [Lantus Vial] 30 unit SQ HS #0 Discontinued Spironolactone 25 mg PO DAILY Potassium Chloride ER [K-Dur 20] 20 meq PO DAILY tab Magnesium Hydroxide [Milk of Magnesia] 2,400 mg PO DAILY metOLazone [Zaroxolyn] 5 mg PO DAILY tab Magnesium Hydroxide [Milk of Magnesia] 2,400 mg PO Q48H PRN PRN Reason: Constipation Na Phos,M-B/Na Phos,Di-Ba [Fleet Adult] 133 ml RECTAL Q72H PRN PRN Reason: Constipation Furosemide [Lasix] 80 mg PO BID@0900,1700 Discharge Medication List Finasteride 5 mg PO DAILY 04/18/14 [History] Fluticasone Nasal Duff [Flonase Nasal Duff] 1 spray EA NOSTRIL BID@0900,1700 10/18/19 [History] Nitroglycerin Sl Tabs [Nitrostat] 0.4 mg SL Q5M PRN 01/13/21 [History] allopurinoL [Zyloprim] 300 mg PO DAILY 01/13/21 [History] Apixaban [Eliquis] 2.5 mg PO BID@0900,1700 06/06/22 [History] Beclomethasone Dip 80 Mcg/Puff [Qvar 80 mcg] 1 puff INHALATION RT-BID@0900,1700 06/06/22 [History] Dulaglutide [Trulicity] 0.75 mg SQ RODRIGUEZ 06/06/22 [History] Empagliflozin [Jardiance] 10 mg PO DAILY 06/06/22 [History] Ergocalciferol [Vitamin D2 (1250 Mcg = 54946 Iu)] 1,250 mcg PO Q14D 06/06/22 [History] Folic Acid 1 mg PO DAILY 06/06/22 [History] Levothyroxine Sodium [Synthroid] 50 mcg PO DAILY@0600 06/06/22 [History] calcitrioL [Calcitriol] 0.25 mcg PO MOFR 06/06/22 [History] Acetaminophen Tab [Tylenol] 650 mg PO Q6HR PRN tab 06/13/22 [Rx] Albuterol Nebulized [Ventolin Nebulized] 2.5 mg INHALATION RT-Q6H PRN ml 06/13/22 [Rx] Albuterol Sulfate [Proair Hfa] 1 puff INHALATION RT-Q6H PRN 06/25/22 [History] Atorvastatin [Lipitor] 40 mg PO HS 06/25/22 [History] Famotidine [Pepcid] 20 mg PO BID 06/25/22 [History] Lactulose 20 gm PO DAILY 06/25/22 [History] Oxybutynin Chloride [Oxybutynin Chloride ER] 10 mg PO DAILY 06/25/22 [History] Prostat Sugar Free 30 ml PO DAILY 06/25/22 [History] bisacodyL 10 mg RECTAL Q48H PRN 06/25/22 [History] INSULIN ASPART (NovoLOG) [NovoLOG (formulary)] 0 unit SQ ACHS each 07/01/22 [Rx] INSULIN ASPART (NovoLOG) [NovoLOG (formulary)] 12 unit SQ AC-TID each 07/01/22 [Rx] Insulin Glargine [Lantus Vial] 30 unit SQ HS #0 07/01/22 [Rx] Lacosamide [Vimpat] 100 mg PO BID@0900,1700 #4 tab 07/01/22 [Rx] Metoprolol Tartrate [Lopressor] 12.5 mg PO DAILY tab 07/01/22 [Rx] Sennosides-Docusate Sodium [Senokot-S] 2 each PO DAILY PRN tab 07/01/22 [Rx] Torsemide [Demadex] 20 mg PO DAILY #30 tablet 07/01/22 [Rx] Follow up Appointment(s)/Referral(s): Pato Talley MD [STAFF PHYSICIAN] - 1 Week Migue Hicks III, MD [Primary Care Provider] - 1-2 days [facility], [NON-STAFF] - As Needed Jono Figueredo DO [STAFF PHYSICIAN] - 1 Week Ambulatory/Diagnostic Orders: Comprehensive Metabolic Panel [LAB.AMB] Time Frame: 06/27/22, Location: None Selected Magnesium [LAB.AMB] Time Frame: 06/27/22, Location: None Selected Activity/Diet/Wound Care/Special Instructions: Recommend to not give fleet enema or milk of magnesium for constipation Continue with 40 fluid oz fluid restriction per 24 hours Repeat BMP and magnesium monday Monitor for hematuria Recommend to see urology outpatient if there is evidence for hematuria Discharge Disposition: TRANSFER TO SNF/ECF
[2022-07-01 16:32] LABS: Glucose,Whole Blood 108 mg/dL (70-110)
[2022-07-01 20:24] LABS: Glucose,Whole Blood 110 mg/dL (70-110)
[2022-07-01] MEDS: ATORVASTATIN 40 MG TAB PO SCH (22:16)
[2022-07-01] MEDS: INSULIN DETEMIR (LEVEMIR) 100 UNIT/ML SYR SQ SCH (22:17)
[2022-07-02] MEDS: METOCLOPRAMIDE 5 MG/ML 2 ML VIAL IVP SCH ×3 (01:00→12:05)
[2022-07-02] MEDS: LEVOTHYROXINE 50 MCG TAB PO SCH (05:40)
[2022-07-02 07:07] LABS: Glucose,Whole Blood 89 mg/dL (70-110)
[2022-07-02] MEDS: FLUTICASONE 110 MCG INHALER INHALATION SCH (07:54)
[2022-07-02] MEDS: INSULIN ASPART (NovoLOG) 100 UNIT/ML VIAL SQ SCH ×4 (08:24→12:06)
[2022-07-02 09:23] VITALS: TEMP 98.4
[2022-07-02] MEDS ORDERED: TORSEMIDE 20 MG TAB PO SCH (10:00)
[2022-07-02] MEDS: METOPROLOL TARTRATE 12.5 MG TAB PO SCH (10:37)
[2022-07-02] MEDS: LACTULOSE 20 GM/30 ML CUP PO SCH (10:38)
[2022-07-02] MEDS: FOLIC ACID 1 MG TAB PO SCH (10:38)
[2022-07-02] MEDS: LACOSAMIDE 50 MG TABLET PO SCH (10:38)
[2022-07-02] MEDS: APIXABAN 2.5 MG TABLET PO SCH (10:38)
[2022-07-02] MEDS: FINASTERIDE 5 MG TAB PO SCH (10:38)
[2022-07-02] MEDS: allopurinoL 300 MG TAB PO SCH (10:38)
[2022-07-02] MEDS: FAMOTIDINE 20 MG TAB PO SCH (10:38)
[2022-07-02] MEDS: SENNOSIDES-DOCUSATE SODIUM 1 EACH TAB PO SCH (10:38)
[2022-07-02] MEDS: POTASSIUM CHLORIDE ER 20 MEQ TAB.ER PO SCH (10:38)
[2022-07-02] MEDS: FLUTICASONE 50MCG/SPRAY NASAL 16GM EA NOSTRIL SCH (10:39)
[2022-07-02] MEDS: OXYBUTYNIN 10 MG TAB.ER.24 PO SCH (10:40)
[2022-07-02 11:06] LABS: Glucose,Whole Blood 244 mg/dL (70-110)
[2022-07-02 13:12] LABS: African American GFR (CKD) 48.8 (60.0-200.0); Anion Gap 15.1 mmol/L (10.00-18.00); BUN/Creat Ratio 38.94 Ratio (12.00-20.00); Blood Urea Nitrogen 62.3 mg/dL (9.0-27.0); Carbon Dioxide 27.9 mmol/L (20.0-27.5); Magnesium 2.8 mg/dL (1.5-2.4); Non-African American GFR(CKD) 42.1 (60.0-200.0); Potassium 4.1 mmol/L (3.5-5.5)
--- NOTE | 2022-07-02 14:44 | P.DS ---
Providers Date of admission: 06/25/22 20:18 Expected date of discharge: 07/02/22 Attending physician: Paris Kwan Consults: 06/25/22 20:18 Consult Physician Routine Consulting Provider: Kusum Carranza Consult Reason/Comments: known Do you want consulting provider notified?: Yes 06/28/22 11:16 Consult to Palliative Care Routine Consulting Provider: Carlene Zimmer Consult Reason/Comments: palliative care info Do you want consulting provider notified?: Yes Primary care physician: Migue Yung [facility] Course: Final diagnosis Acute metabolic encephalopathy multifocal secondary to dehydration, acute kidney injury, improving Fecal impaction with constipation, improved Acute on chronic kidney disease Hematuria which seems to have cleared, continue to monitor Asymptomatic bacteriuria Troponin leak secondary to MARIALUISA Hyponatremia, hypovolemic from poor oral intake, diuresis Hypokalemia, resolved Ischemic Cardiomyopathy 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 Altered mental status has improved, hallucinations have resolved. Patient will discharge on 20 mg PO daily of torsemide and will repeat labs on monday BMP and magnesium level. Do not give fleet enema or milk of magnesium for constipation. Follow up with cardiology and primary care on discharge. Patient will also continue on oral Ceftin twice daily for the next 3 days to complete the course empirically. Total time taken is greater than 35 minutes. Hospital Course This is a pleasant 73 mg medical history significant for chronic pain disease, ischemic cardiomyopathy, chronic heart failure with EF 25-30%, permanent atrial fibrillation, hypertension, COPD, asthma, diabetes mellitus, chronic peripheral edema, history B cell lymphoma postchemotherapy, coronary artery disease status post PCI. Patient is recently evaluated this hospital stay for left lower extremity cellulitis and was found to have an EF of 25-30%. He was evaluated cardiology and infectious disease was discharged to [facility] for rehab. Patient does have chronic kidney disease and follows with nephrology outpatient. He was discharged on diuretic as well as fluid restriction. Patient had fallen at rehab on and Monday and was with concern for altered mental status and confusion patient was reporting to have hallucinations visual. Patient did develop some constipation and was using Fleet enema as well as milk of magnesia on rehab for constipation. He presented to [facility] significant fecal impaction was manually disimpacted. He was sent to [facility] for further evaluation regarding elevated troponin level. Cardiology saw the patient in consultation and felt troponin level was mostly due to kidney disease and not an coronary syndrome. His diuretics placed on hold and patient was rehydrated and his creatinine improved. Sodium level had initally improved and then decreased to 129 and he was given a dose of samsca. Patient did have an increase in peripheral edema and doppler was completed which was negative for DVT. He received IV lasix x 2 days. He had some hematuria which there was blood found on urinalysis with spontaneous cleared. HGB was stable at 14.3 and no more evidence for hematuria. Patient will see urology outpatient if this returns. Urinating without difficulty. No dysuria, no urgency frequency, retention. 07/01/2022 Patient evaluated today sitting up in the chair with at the bedside. Altered mentation has resolved he has not had halluncinations for 2 days. He had 2 large soft bowel movements yesterday. He was given a dose of samsca today. No DVT bilateral on doppler. He will be resumed on torsemide 20 mg po daily. Magnesium was found to be elevated at 3.4 on admission and milk of magnesia discontinued will repeat magnesium level on Monday as well as repeat BMP for sodium follow up monday. Nephrology recommendation to continue on 40 fl oz fluid restriction per 24 hours. Urine culture negative so far. Lungs are clear, S1 S2 auscultated, abdomen is soft and nontender. He does have peripheral edema. No DVT, received a second dose of IV lasix today. 07/02/2022 Patient was seen this morning doing well awaiting to be discharged to [facility] today and preliminary urine culture showing gram-negative bacilli although patient is asymptomatic and denies any burning or dysuria. Will give 2 g of Rocephin now and continue on Ceftin 500 mg twice daily for next 3 days empirically. Patient is stable for discharge to [facility] today. made aware and wheelchair van being arranged for transportation. Vital signs are exam are stable. Temp is 98.4F, pulse is 84, respirations are 17, blood pressure is 114/72, oxygen saturation is 100% on room air. The impression and plan of care has been dictated by Catarina Torres, Nurse Practitioner as directed. Dr. Domenica MD I have performed a history and examination and MDM of this patient, discussed the same with the dictator, and agree with the dictator's assessment and plan as written ,documented as a scribe. Based on total visit time, I have performed more than 50% of the visit. Patient Condition at Discharge: Fair Plan - Discharge Summary Discharge Rx Participant: No New Discharge Prescriptions: New Metoprolol Tartrate [Lopressor] 12.5 mg PO DAILY tab INSULIN ASPART (NovoLOG) [NovoLOG (formulary)] 12 unit SQ AC-TID each Lacosamide [Vimpat] 100 mg PO BID #4 tab Torsemide [Demadex] 20 mg PO DAILY #30 tablet INSULIN ASPART (NovoLOG) [NovoLOG (formulary)] 0 unit SQ ACHS each Sennosides-Docusate Sodium [Senokot-S] 2 each PO DAILY PRN tab PRN Reason: Constipation cefUROXime axetiL [Ceftin] 500 mg PO BID 3 Days #6 tab Continue Finasteride 5 mg PO DAILY Fluticasone Nasal Apex [Flonase Nasal Apex] 1 spray EA NOSTRIL BID@0900,1700 Nitroglycerin Sl Tabs [Nitrostat] 0.4 mg SL Q5M PRN PRN Reason: Chest Pain allopurinoL [Zyloprim] 300 mg PO DAILY Empagliflozin [Jardiance] 10 mg PO DAILY Dulaglutide [Trulicity] 0.75 mg SQ RODRIGUEZ Beclomethasone Dip 80 Mcg/Puff [Qvar 80 mcg] 1 puff INHALATION RT- BID@0900,1700 Apixaban [Eliquis] 2.5 mg PO BID@0900,1700 Acetaminophen Tab [Tylenol] 650 mg PO Q6HR PRN tab PRN Reason: Fever And/ Or Pain Albuterol Nebulized [Ventolin Nebulized] 2.5 mg INHALATION RT-Q6H PRN ml PRN Reason: Shortness Of Breath bisacodyL 10 mg RECTAL Q48H PRN PRN Reason: Constipation Famotidine [Pepcid] 20 mg PO BID Atorvastatin [Lipitor] 40 mg PO HS Lactulose 20 gm PO DAILY Levothyroxine Sodium [Synthroid] 50 mcg PO DAILY@0600 Folic Acid 1 mg PO DAILY Ergocalciferol [Vitamin D2 (1250 Mcg = 96087 Iu)] 1,250 mcg PO Q14D calcitrioL [Calcitriol] 0.25 mcg PO MOFR Albuterol Sulfate [Proair Hfa] 1 puff INHALATION RT-Q6H PRN PRN Reason: Shortness Of Breath Prostat Sugar Free 30 ml PO DAILY Oxybutynin Chloride [Oxybutynin Chloride ER] 10 mg PO DAILY Changed Insulin Glargine [Lantus Vial] 30 unit SQ HS #0 Discontinued Spironolactone 25 mg PO DAILY Potassium Chloride ER [K-Dur 20] 20 meq PO DAILY tab Lacosamide [Vimpat] 100 mg PO BID@0900,1700 Magnesium Hydroxide [Milk of Magnesia] 2,400 mg PO DAILY metOLazone [Zaroxolyn] 5 mg PO DAILY tab Magnesium Hydroxide [Milk of Magnesia] 2,400 mg PO Q48H PRN PRN Reason: Constipation Na Phos,M-B/Na Phos,Di-Ba [Fleet Adult] 133 ml RECTAL Q72H PRN PRN Reason: Constipation Furosemide [Lasix] 80 mg PO BID@0900,1700 Discharge Medication List Finasteride 5 mg PO DAILY 04/18/14 [History] Fluticasone Nasal Apex [Flonase Nasal Apex] 1 spray EA NOSTRIL BID@0900,1700 10/18/19 [History] Nitroglycerin Sl Tabs [Nitrostat] 0.4 mg SL Q5M PRN 01/13/21 [History] allopurinoL [Zyloprim] 300 mg PO DAILY 01/13/21 [History] Apixaban [Eliquis] 2.5 mg PO BID@0900,1700 06/06/22 [History] Beclomethasone Dip 80 Mcg/Puff [Qvar 80 mcg] 1 puff INHALATION RT-BID@0900,1700 06/06/22 [History] Dulaglutide [Trulicity] 0.75 mg SQ RODRIGUEZ 06/06/22 [History] Empagliflozin [Jardiance] 10 mg PO DAILY 06/06/22 [History] Ergocalciferol [Vitamin D2 (1250 Mcg = 80274 Iu)] 1,250 mcg PO Q14D 06/06/22 [History] Folic Acid 1 mg PO DAILY 06/06/22 [History] Levothyroxine Sodium [Synthroid] 50 mcg PO DAILY@0600 06/06/22 [History] calcitrioL [Calcitriol] 0.25 mcg PO MOFR 06/06/22 [History] Acetaminophen Tab [Tylenol] 650 mg PO Q6HR PRN tab 06/13/22 [Rx] Albuterol Nebulized [Ventolin Nebulized] 2.5 mg INHALATION RT-Q6H PRN ml 06/13/22 [Rx] Albuterol Sulfate [Proair Hfa] 1 puff INHALATION RT-Q6H PRN 06/25/22 [History] Atorvastatin [Lipitor] 40 mg PO HS 06/25/22 [History] Famotidine [Pepcid] 20 mg PO BID 06/25/22 [History] Lactulose 20 gm PO DAILY 06/25/22 [History] Oxybutynin Chloride [Oxybutynin Chloride ER] 10 mg PO DAILY 06/25/22 [History] Prostat Sugar Free 30 ml PO DAILY 06/25/22 [History] bisacodyL 10 mg RECTAL Q48H PRN 06/25/22 [History] INSULIN ASPART (NovoLOG) [NovoLOG (formulary)] 0 unit SQ ACHS each 07/01/22 [Rx] INSULIN ASPART (NovoLOG) [NovoLOG (formulary)] 12 unit SQ AC-TID each 07/01/22 [Rx] Insulin Glargine [Lantus Vial] 30 unit SQ HS #0 07/01/22 [Rx] Metoprolol Tartrate [Lopressor] 12.5 mg PO DAILY tab 07/01/22 [Rx] Sennosides-Docusate Sodium [Senokot-S] 2 each PO DAILY PRN tab 07/01/22 [Rx] Torsemide [Demadex] 20 mg PO DAILY #30 tablet 07/01/22 [Rx] Lacosamide [Vimpat] 100 mg PO BID #4 tab 07/02/22 [Rx] cefUROXime axetiL [Ceftin] 500 mg PO BID 3 Days #6 tab 07/02/22 [Rx] Follow up Appointment(s)/Referral(s): Pato Talley MD [STAFF PHYSICIAN] - 1 Week ( already made the appointment) Migue Hicks III, MD [Primary Care Provider] - 1-2 days [facility], [NON-STAFF] - As Needed Jono Figueredo DO [STAFF PHYSICIAN] - 1 Week ( will make appointment) Ambulatory/Diagnostic Orders: Comprehensive Metabolic Panel [LAB.AMB] Time Frame: 06/27/22, Location: None Selected Magnesium [LAB.AMB] Time Frame: 06/27/22, Location: None Selected Activity/Diet/Wound Care/Special Instructions: Recommend to not give fleet enema or milk of magnesium for constipation Continue with 40 fluid oz fluid restriction per 24 hours Repeat BMP and magnesium monday Monitor for hematuria Recommend to see urology outpatient if there is evidence for hematuria Continue Ceftin 500 mg twice daily for the next 3 days to complete the course Discharge Disposition: TRANSFER TO SNF/ECF
[2022-07-02 16:31] VITALS: BP 124/64; PULSE 76; RESP 15
--- NOTE | 2022-07-03 05:40 | PN ---
PROGRESS NOTE SUBJECTIVE: The patient is seen for followup for acute kidney injury on top of chronic kidney disease and volume overload. Renal function has stabilized with serum creatinine staying at about 1.5 mg/dL. The patient received a dose of IV Lasix yesterday. He is maintained on Demadex at home. The patient is currently maintained on fluid restriction as well. PHYSICAL EXAMINATION: GENERAL: On examination today, the patient is sitting up in a bedside chair. VITAL SIGNS: Blood pressure is 114/72, heart rate 84 per minute, he is afebrile, O2 sats 100% on room air. HEART: S1, S2. LUNGS: Bilateral breath sounds are heard. ABDOMEN: Soft, nontender, obese. EXTREMITIES: Lower extremities shows chronic skin changes, bilateral lower extremity pigmentation with chronic edema. LABORATORY DATA: Labs showed sodium 129 from yesterday, potassium 4.2, BUN 69, serum creatinine 1.54. ASSESSMENT: 1. Acute kidney injury, prerenal initially, currently the patient is hypervolemic, we will resume his dose of diuretics. 2. Hypervolemic hyponatremia, status post Samsca and the patient received IV Lasix yesterday. 3. Chronic systolic congestive heart failure with ejection fraction 25% to 30% with [id number] aortic regurgitation, moderate mitral and tricuspid regurgitation and moderate pulmonary hypertension. 4. Chronic kidney disease stage 3B, baseline creatinine 1.5 to 1.7, secondary to nephrosclerosis. UA is benign. 5. Chronic kidney disease, mineral bone disorder, maintained on calcitriol. 6. Chronic lower extremity edema. PLAN: Can resume loop diuretics that the patient was taking prior to admission. Monitor electrolytes and follow up in the office in about one week post discharge. Continue with fluid restriction. Hold metolazone. MMODL / IJN: [id number] /
== END 2022-07-02 14:35 | DRG 682 ==
LOC: EC 19:14 → 4SSUR 20:18
PROVIDERS: ADMIT Hospitalist; ATTEND Hospitalist
DX: N17.9 Acute kidney failure, unspecified (principal); G93.41 Metabolic encephalopathy; E87.1 Hypo-osmolality and hyponatremia; I13.0 Hypertensive heart and chronic kidney disease with heart failure and stage 1 through stage 4 chronic kidney disease, or unspecified chronic kidney disease; I48.21 Permanent atrial fibrillation; I50.42 Chronic combined systolic (congestive) and diastolic (congestive) heart failure; L03.116 Cellulitis of left lower limb; N18.32 Chronic kidney disease, stage 3b; E83.9 Disorder of mineral metabolism, unspecified; K42.9 Umbilical hernia without obstruction or gangrene; K56.41 Fecal impaction; G89.29 Other chronic pain; Z28.310 Unvaccinated for COVID-19; E03.9 Hypothyroidism, unspecified; E11.22 Type 2 diabetes mellitus with diabetic chronic kidney disease; J44.9 Chronic obstructive pulmonary disease, unspecified; I27.20 Pulmonary hypertension, unspecified; E11.51 Type 2 diabetes mellitus with diabetic peripheral angiopathy without gangrene; E11.65 Type 2 diabetes mellitus with hyperglycemia; E66.9 Obesity, unspecified; Z68.34 Body mass index [BMI] 34.0-34.9, adult; E78.5 Hyperlipidemia, unspecified; Z66 Do not resuscitate; I08.3 Combined rheumatic disorders of mitral, aortic and tricuspid valves; E86.0 Dehydration; E86.1 Hypovolemia; E87.6 Hypokalemia; I25.10 Atherosclerotic heart disease of native coronary artery without angina pectoris; I25.5 Ischemic cardiomyopathy; I45.10 Unspecified right bundle-branch block; N40.0 Benign prostatic hyperplasia without lower urinary tract symptoms; R13.10 Dysphagia, unspecified; E80.6 Other disorders of bilirubin metabolism; R29.6 Repeated falls; R77.8 Other specified abnormalities of plasma proteins; R44.1 Visual hallucinations; R31.9 Hematuria, unspecified; T50.2X5A Adverse effect of carbonic-anhydrase inhibitors, benzothiadiazides and other diuretics, initial encounter; Z79.01 Long term (current) use of anticoagulants; Z79.4 Long term (current) use of insulin; Z79.84 Long term (current) use of oral hypoglycemic drugs; Z79.890 Hormone replacement therapy; Z79.899 Other long term (current) drug therapy; Z82.49 Family history of ischemic heart disease and other diseases of the circulatory system; Z82.5 Family history of asthma and other chronic lower respiratory diseases; Z83.3 Family history of diabetes mellitus; Z85.72 Personal history of non-Hodgkin lymphomas; Z92.21 Personal history of antineoplastic chemotherapy; Z95.5 Presence of coronary angioplasty implant and graft
CPT/HCPCS: 36415; 71046; 74018; 80048; 80053; 80076; 81001; 81003; 82140; 82248; 83036; 83605; 83735; 83880; 84100; 84132; 84145; 84484; 85025; 85610; 85730; 87077; 87086; 87186; 93005; 93970; 94640; 94760; 96360; 99285

== ENCOUNTER 2022-07-22 16:50 | Inpatient (IN) | payer BC, MEDICARE ==
--- NOTE | 2022-07-22 17:14 | ED ---
General Adult HPI - General Chief complaint: Recheck/Abnormal Lab/Rx Stated complaint: abnormal labs Time Seen by Provider: 07/22/22 17:11 Source: patient, EMS Mode of arrival: EMS Limitations: no limitations - History of Present Illness Initial comments: Patient presents to the ED by ambulance from his half-way for evaluation with his at bedside. Per , the patient had blood work ordered by Dr. Gutierrez 2 days ago, and his alkaline phosphatase level was elevated, so the patient was instructed to come to the ED today out of concern for a possible obstructing gallstone. Patient states that he has felt nauseated for the past 3-4 weeks. Patient's also states that the patient has had a decreased appetite for the past few weeks. Patient denies having any abdominal pain or any pain at all. Patient denies having any other symptoms or complaints. Patient denies fever or chills, headache, focal neuro deficit, chest pain or pressure, dyspnea, cough or cold symptoms, palpitations, dizziness, abdominal pain, vomiting, diarrhea, bloody or melanotic stool, dysuria/hematuria/urinary frequency/urinary symptoms, or any other symptoms or complaints. - Related Data Home Medications Medication Instructions Recorded Confirmed Finasteride 5 mg PO DAILY 04/18/14 06/25/22 Fluticasone Nasal [place] [Flonase 1 spray EA NOSTRIL BID@0900,0 10/18/19 06/25/22 Nasal [place]] Nitroglycerin Sl Tabs [Nitrostat] 0.4 mg SL Q5M PRN 01/13/21 06/25/22 allopurinoL [Zyloprim] 300 mg PO DAILY 01/13/21 06/25/22 Apixaban [Eliquis] 2.5 mg PO BID@0900,1700 06/06/22 06/25/22 Beclomethasone Dip 80 Mcg/Puff 1 puff INHALATION RT-BID@0900,1700 06/06/22 06/25/22 [Qvar 80 mcg] Dulaglutide [Trulicity] 0.75 mg SQ RODRIGUEZ 06/06/22 06/25/22 Empagliflozin [Jardiance] 10 mg PO DAILY 06/06/22 06/25/22 Ergocalciferol [Vitamin D2 (1250 1,250 mcg PO Q14D 07/11/22 07/30/22 Mcg = 73159 Iu)] Folic Acid 1 mg PO DAILY 06/06/22 06/25/22 Levothyroxine Sodium [Synthroid] 50 mcg PO DAILY@0600 06/06/22 06/25/22 calcitrioL [Calcitriol] 0.25 mcg PO MOFR 06/06/22 06/25/22 Albuterol Sulfate [Proair Hfa] 1 puff INHALATION RT-Q6H PRN 06/25/22 06/25/22 Atorvastatin [Lipitor] 40 mg PO HS 06/25/22 06/25/22 Famotidine [Pepcid] 20 mg PO BID 06/25/22 06/25/22 Lactulose 20 gm PO DAILY 06/25/22 06/25/22 Oxybutynin Chloride [Oxybutynin 10 mg PO DAILY 06/25/22 06/25/22 Chloride ER] Prostat Sugar Free 30 ml PO DAILY 06/25/22 06/25/22 bisacodyL 10 mg RECTAL Q48H PRN 06/25/22 06/25/22 Previous Rx's Medication Instructions Recorded Acetaminophen Tab [Tylenol] 650 mg PO Q6HR PRN tab 06/13/22 Albuterol Nebulized [Ventolin 2.5 mg INHALATION RT-Q6H PRN ml 06/13/22 Nebulized] INSULIN ASPART (NovoLOG) [NovoLOG 0 unit SQ ACHS each 07/01/22 (formulary)] INSULIN ASPART (NovoLOG) [NovoLOG 12 unit SQ AC-TID each 07/01/22 (formulary)] Insulin Glargine [Lantus Vial] 30 unit SQ HS #0 07/01/22 Metoprolol Tartrate [Lopressor] 12.5 mg PO DAILY tab 07/01/22 Sennosides-Docusate Sodium 2 each PO DAILY PRN tab 07/01/22 [Senokot-S] Torsemide [Demadex] 20 mg PO DAILY #30 tablet 07/01/22 Lacosamide [Vimpat] 100 mg PO BID #4 tab 07/02/22 cefUROXime axetiL [Ceftin] 500 mg PO BID 3 Days #6 tab 07/02/22 Allergies Allergy/AdvReac Type Severity Reaction Status Date / Time Penicillins Allergy Unknown Verified 06/25/22 19:48 Childhood/Patient went into a coma Review of Systems ROS Statement: Those systems with pertinent positive or pertinent negative responses have been documented in the HPI. ROS Other: All systems not noted in ROS Statement are negative. Past Medical History Past Medical History: Atrial Fibrillation, Asthma, Coronary Artery Disease (CAD), Cancer, Heart Failure, COPD, Diabetes Mellitus, Hyperlipidemia, Hypertension, Osteoarthritis (OA), Prostate Disorder, Renal Disease, Vascular Disorder Additional Past Medical History / Comment(s): PVD, multiple wounds bilateral legs/feet and has current L foot wound, dry scaley skin bilateral legs/feet, NIDDM type II-no longer on medications since weight loss, neuropathy bilateral legs/feet, subcutaneous B cell lymphoma diagnosed 08/2016 and completed chemotherapy 01/2017, CKD stage III, gout, back pain if stands too long, diverticular disease, benign colon polyps, BPH History of Any Multi-Drug Resistant Organisms: MRSA Date of last positivie culture/infection: 05/18/17 MDRO Source:: RIGHT LEG Past Surgical History: Heart Catheterization With Stent, Joint Replacement, Orthopedic Surgery, Tonsillectomy Additional Past Surgical History / Comment(s): 2013 PCI with 2 stents, infusaport R upper chest, 8 hand surgeries after injury in [place]-skin grafts/tendon repair-skin taken from L upper chest and bilateral ankle tendon donors, L total hip arthroplasty, colonoscopies/benign polyps. Past Anesthesia/Blood Transfusion Reactions: Previous Problems w/ Anesthesia Additional Past Anesthesia/Blood Transfusion Reaction / Comment(s): Difficulty waking with 2 surgeries performed while in the [employer] Date of Last Stent Placement:: 2013 Past Psychological History: No Psychological Hx Reported Smoking Status: Never smoker Past Alcohol Use History: Occasional Past Drug Use History: None Reported - Past Family History Mother Family Medical History: COPD, Diabetes Mellitus Additional Family Medical History / Comment(s): Mother of a SC at the age of 61 yrs. She was a heavy smoker. Father History Unknown: Yes Family Medical History: Myocardial Infarction (SC) Additional Family Medical History / Comment(s): Pt does not know father's medical history General Exam Limitations: no limitations General appearance: alert, in no apparent distress Head exam: Present: atraumatic, normocephalic Eye exam: Present: normal appearance, EOMI ENT exam: Present: mucous membranes moist Neck exam: Present: other (Trachea is in midline) Respiratory exam: Present: normal lung sounds bilaterally. Absent: respiratory distress, wheezes, rales, rhonchi, stridor Cardiovascular Exam: Present: regular rate, normal rhythm, normal heart sounds, other (Normal radial pulses bilaterally) GI/Abdominal exam: Present: soft. Absent: distended, tenderness, guarding Extremities exam: Present: pedal edema, other (Negative Homans sign bilaterally; bilateral lower leg venous stasis dermatitis). Absent: tenderness, calf tenderness Neurological exam: Present: alert, oriented X3. Absent: motor sensory deficit Psychiatric exam: Present: normal affect, normal mood Skin exam: Present: warm, dry, intact Course Vital Signs 07/22/22 07/22/22 16:58 18:36 Temperature 97.2 F L Pulse Rate 80 75 Respiratory 16 18 Rate Blood Pressure 108/66 117/71 O2 Sat by Pulse 95 100 Oximetry - Reevaluation(s) Reevaluation #1: 07/22/22 19:46 Case, H&P, test results and ED management thus far were discussed with Dr. Cook (general surgery). He recommends admitting the patient to the medical service with general surgery on consult. He recommends holding the patient's Eliquis. He has no further recommendations at this time. 07/22/22 19:52 Case, H&P, test results, ED management thus far and my discussion with Dr. Cook as above were discussed with [employer] Alisha Nichole. She accepts hospital admission on behalf of herself and Dr. Metzger. She has no further recommendations at this time. 07/22/22 19:59 Patient denies development of any new symptoms while in the ED. Patient's abdomen remains soft and nontender on exam. Patient and are aware the patient's test results and my discussion with Dr. Cook as above. Patient and both agree with hospital admission at this time. Medical Decision Making - Medical Decision Making I suspect that the patient's elevated LFTs are likely due to cholelithiasis/gallbladder disease. Patient gallbladder wall is thickened on ultrasound, suggesting possible cholecystitis, although the patient has no abdominal pain or tenderness on exam. Patient is also afebrile and without leukocytosis. Patient has been treated empirically with IV antibiotics to cover for acute cholecystitis. Dr. Cook (general surgery) was consulted by phone from the ED, and he agrees to see the patient in consultation. Hospital admission was accepted by K[facility] Nichole/Dr. Metzger. - Lab Data Result diagrams: 07/22/22 17:31 07/22/22 17:31 Lab Results 07/22/22 07/22/22 07/22/22 Range/Units 17:31 17:31 18:17 WBC 6.6 (3.8-10.6) k/uL RBC 5.18 (4.30-5.90) m/uL Hgb 16.2 (13.0-17.5) gm/dL Hct 51.1 (39.0-53.0) % MCV 98.6 (80.0-100.0) fL MCH 31.3 (25.0-35.0) pg MCHC 31.7 (31.0-37.0) g/dL RDW 17.3 H (11.5-15.5) % Plt Count 133 L (150-450) k/uL MPV 8.6 Neutrophils % 56 % Lymphocytes % 33 % Monocytes % 5 % Eosinophils % 1 % Basophils % 1 % Neutrophils # 3.7 (1.3-7.7) k/uL Lymphocytes # 2.2 (1.0-4.8) k/uL Monocytes # 0.3 (0-1.0) k/uL Eosinophils # 0.1 (0-0.7) k/uL Basophils # 0.1 (0-0.2) k/uL Hypochromasia Slight Anisocytosis Slight Macrocytosis Slight PT 11.4 (9.0-12.0) sec INR 1.1 (<1.2) APTT 26.2 (22.0-30.0) sec Sodium 135 L (137-145) mmol/L Potassium 4.4 (3.5-5.1) mmol/L Chloride 93 L (98-107) mmol/L Carbon Dioxide 27 (22-30) mmol/L Anion Gap 15 mmol/L BUN 50 H (9-20) mg/dL Creatinine 1.61 H (0.66-1.25) mg/dL Est GFR (CKD-EPI)AfAm 49 (>60 ml/min/1.73 sqM) Est GFR (CKD-EPI)NonAf 42 (>60 ml/min/1.73 sqM) Glucose 186 H (74-99) mg/dL Calcium 9.0 (8.4-10.2) mg/dL Total Bilirubin 2.5 H (0.2-1.3) mg/dL AST 91 H (17-59) U/L ALT 57 H (4-49) U/L Alkaline Phosphatase 891 H (38-126) U/L Total Protein 7.7 (6.3-8.2) g/dL Albumin 3.8 (3.5-5.0) g/dL Lipase 65 (23-300) U/L - Radiology Data Gallbladder ultrasound: There is cholelithiasis with gallbladder wall thickening consistent with acute and chronic cholecystitis. No dilated ducts. No discrete liver masses. Disposition Clinical Impression: Cholelithiasis, Elevated LFTs, Nausea Narrative: Suspected cholecystitis Disposition: ADMITTED IP TO [facility] Condition: Stable Is patient prescribed a controlled substance at d/c from ED?: No Referrals: Migue Hicks III, MD [Primary Care Provider] - 1-2 days Time of Disposition: 19:52
[2022-07-22] MEDS ORDERED: SODIUM CHLORIDE 0.9% 500 ML 500 ML IV ONE (17:32)
[2022-07-22] MEDS ORDERED: ONDANSETRON 4 MG/2 ML VIAL IVP STA (17:32)
[2022-07-22 18:01] LABS: Albumin 3.8 g/dL (3.5-5.0); Potassium 4.4 mmol/L (3.5-5.1); Total Bilirubin 2.5 mg/dL (0.2-1.3); Total Protein 7.7 g/dL (6.3-8.2)
[2022-07-22 18:19] LABS: Anisocytosis Slight; Basophils # (A) 0.1 k/uL (0-0.2); Basophils % (A) 1 %; Eosinophils # (A) 0.1 k/uL (0-0.7); Eosinophils % (A) 1 %; HCT 51.1 % (39.0-53.0); HGB 16.2 gm/dL (13.0-17.5); Hypochromasia Slight; Lymphocytes # (A) 2.2 k/uL (1.0-4.8); Lymphocytes % (A) 33 %; MCH 31.3 pg (25.0-35.0); MCHC 31.7 g/dL (31.0-37.0); MCV 98.6 fL (80.0-100.0); Macrocytosis Slight; Mean Platelet Volume 8.6; Monocytes # (A) 0.3 k/uL (0-1.0); Monocytes % (A) 5 %; Neutrophils # (A) 3.7 k/uL (1.3-7.7); Neutrophils % (A) 56 %; Platelet Count 133 k/uL (150-450); RBC 5.18 m/uL (4.30-5.90); RDW 17.3 % (11.5-15.5); WBC 6.6 k/uL (3.8-10.6)
--- NOTE | 2022-07-22 18:19 | US ---
EXAMINATION TYPE: US gallbladder DATE OF EXAM: 07/22/2022 COMPARISON: NONE CLINICAL HISTORY: nausea, elevated LFT's. known Gb stones, elevated labs, abd pain with vomiting TECHNIQUE: Multiple sonographic images of the right upper quadrant are obtained. 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 No dilated ducts. No discrete liver mass.
[2022-07-22 18:48] LABS: INR 1.1 (<1.2); Partial Thromboplastin Time 26.2 sec (22.0-30.0); Prothrombin Time 11.4 sec (9.0-12.0)
[2022-07-22] MEDS ORDERED: LEVOFLOXACIN 500MG-D5W PMX 500 MG in DEXTROSE/WATER 1 100ML.BAG IVPB STA (18:51)
[2022-07-22] MEDS ORDERED: metroNIDAZOLE-NS PMX 500 MG in SALINE 1 100ML.BAG IVPB STA (18:53)
[2022-07-22 20:14] LABS: Appearance,Urine Clear (Clear); Bilirubin,Urine Negative (Negative); Blood,Urine Negative (Negative); Color,Urine Yellow; Glucose,Urine (UA) 4+ (Negative); Ketones,Urine Negative (Negative); Leukocyte Esterase,Urine Negative (Negative); Nitrite,Urine Negative (Negative); Protein,Urine Negative (Negative); Specific Gravity,Urine 1.011 (1.001-1.035); Urobilinogen,Urine <2.0 mg/dL (<2.0)
--- NOTE | 2022-07-22 22:54 | P.CON ---
Consult Note - . Consult date: 07/22/22 Assessment/Plan:: CC; Abnormal lab, N/V and progressive decline HPI: 72 yo male w a mutiplicity of medical issues had recent lab panel demonstrating a marked alkaline phosphatase level. Pt as recommended to undergo testing for possible obstructive jaundice. Pt denies abdominal pain but spouse notes progressive wt loss, weakness and intermittent N/V. Family also notes some change in coloration and concern for jaundice. US done here notes cholelith iasis, w some wall thickening and cbd at upper limit of normal. Pt has known hx of cholelithiasis. PMH: includes CHF, DM, Afib, Cardiomyopathy, COPD, HTN, CKD, HLD, Lymphoma, neuropathy and ASHD Meds: eliquis, finasteride allopurinol, trulicity, jardiance, synthroid, albuterol, atorvastatin, pepcid, and lactulose Allergies: PCN PSH: infuseaport, L total hip, Coronary stents, skin grafts, tendon repair PE Frail appearing older male, Ox3 Head: sclera slightly icteric, skin turor poor Chest: Distant BS Cor: irreg Abdomen; soft, non-tender no palpable masses Extrem venous stasis changes and 2+ pedal edema US Positive for cholelithiasis, wall thickened, cbd 9 mm Hgb 16, wbc 6.6, plt 133 glucose 186, BUN/CR 50/1.6 T bili 2.5, AP 891 AST 91 ALT 57 A/P 72 yo male extremely debilitated, multiple medical issues Cholelithisis, possible cholecystitis w benign abd exam Will attempt to obtain MRCP to r/o choledocholithisis Please hold eliquis, may bridge as necessary Consider cholecystectomy if felt to be acceptable medical risk, will discuss further w you
[2022-07-22] MEDS ORDERED: LORazepam 2 MG/ML INJ IV STA (22:57)
[2022-07-23 07:48] LABS: Glucose,Whole Blood 105 mg/dL (70-110)
[2022-07-23 09:16] LABS: African American GFR (CKD) 48.8 (60.0-200.0); Albumin 3.1 g/dL (3.8-4.9); Albumin/Globulin Ratio 1.11 (1.60-3.17); Anion Gap 6.6 mmol/L (10.00-18.00); BUN/Creat Ratio 24.69 Ratio (12.00-20.00); Blood Urea Nitrogen 39.5 mg/dL (9.0-27.0); Calcium 8.6 mg/dL (8.7-10.3); Carbon Dioxide 33.4 mmol/L (20.0-27.5); Globulin 2.8 g/dL (1.6-3.3); Non-African American GFR(CKD) 42.1 (60.0-200.0); Total Bilirubin 1.8 mg/dL (0.30-1.20); Total Protein 5.9 g/dL (6.2-8.2)
[2022-07-23 09:19] LABS: Basophils # (A) 0.02 X 10*3/uL (0.00-0.10); Basophils % (A) 0.4 %; Eosinophils # (A) 0.07 X 10*3/uL (0.04-0.35); Eosinophils % (A) 1.4 %; HCT 42.4 % (39.6-50.0); HGB 13.5 g/dL (13.0-17.0); Immature Grans, Automated 0.2 %; Lymphocytes # (A) 1.48 X 10*3/uL (0.90-5.00); Lymphocytes % (A) 28.6 %; MCH 30.6 pg (27.0-32.0); MCHC 31.8 g/dL (32.0-37.0); MCV 96.1 fL (80.0-97.0); Mean Platelet Volume 10.9 fL (9.5-12.2); Monocytes # (A) 0.48 X 10*3/uL (0.20-1.00); Monocytes % (A) 9.3 %; NRBC Per 100 WBC 0 /100 WBCS (0.0-0.0); Neutrophils # (A) 3.11 X 10*3/uL (1.80-7.70); Neutrophils % (A) 60.1 %; Platelet Count 160 X 10*3/uL (140-440); RBC 4.41 X 10*6/uL (4.40-5.60); RDW 18.6 % (11.5-14.5); WBC 5.17 X 10*3/uL (4.50-10.00)
[2022-07-23] MEDS ORDERED: ALBUTEROL NEBULIZED 2.5 MG/3 ML INHALATION PRN (10:05)
[2022-07-23] MEDS ORDERED: ALBUTEROL HFA INHALER INHALATION PRN (10:05)
[2022-07-23] MEDS ORDERED: NITROGLYCERIN SL TABS 0.4 MG TAB SUBLINGUAL PRN (10:05)
[2022-07-23] MEDS ORDERED: FAMOTIDINE 20 MG TAB PO SCH (10:15)
[2022-07-23] MEDS ORDERED: PANTOPRAZOLE 40 MG/10 ML VIAL IVP SCH (10:15)
--- NOTE | 2022-07-23 11:09 | P.HPIM ---
History of Present Illness Patient was on his 72-year-old male with known history of heart disease with extremely low ejection fraction of around 25% was instructed to come to Hospital because of elevated liver enzymes and elevated alkaline phosphatase and patient is found to have possible obstructing stone. Patient has minimally elevated bilirubin of around 1.8 and AST and ALT are elevated along with alkaline phosphatase. Ultrasound showed gallstones with some possible wall thickening did not show dilated common bile duct bile duct stone. Neurosurgery was consulted and Gen. surgery evaluated the patient. Patient does have chronic kidney disease stage III with baseline creatinine of around 1.6-1.8 and patient creatinine is at his baseline at this time. Patient denied any nausea vomiting denied any significant abdominal pain. Patient also has bilateral lower extremity chronic venous stasis and the couple ulcerations in the bilateral figueredo area, for which infectious disease was consulted although it says patient is ALLERGIC to penicillin and patient was able to tolerate Cefzil in the past patient doesn't have any MRSA history infections disease evaluated the patient and patient will be started on ceftezolin REVIEW OF SYSTEMS: CONSTITUTIONAL: No fever, no malaise, no fatigue. HEENT: No recent visual problems or hearing problems. Denied any sore throat. CARDIOVASCULAR: No chest pain, orthopnea, PND, no palpitations, no syncope. PULMONARY: No shortness of breath, no cough, no hemoptysis. GASTROINTESTINAL: No diarrhea, no nausea, no vomiting, no abdominal pain. NEUROLOGICAL: No headaches, no weakness, no numbness. HEMATOLOGICAL: Denies any bleeding or petechiae. GENITOURINARY: Denies any burning micturition, frequency, or urgency. MUSCULOSKELETAL/RHEUMATOLOGICAL: Denies any joint pain, swelling, or any muscle pain. ENDOCRINE: Denies any polyuria or polydipsia. The rest of the 14-point review of systems is negative. PHYSICAL EXAMINATION: GENERAL: The patient is alert and oriented x3, not in any acute distress. Well developed, well nourished. HEENT: Pupils are round and equally reacting to light. EOMI. may be mild scleral icterus. No conjunctival pallor. Normocephalic, atraumatic. No pharyngeal erythema. No thyromegaly. CARDIOVASCULAR: S1 and S2 present. No murmurs, rubs, or gallops. PULMONARY: Chest is clear to auscultation, no wheezing or crackles. ABDOMEN: Soft, nontender, nondistended, normoactive bowel sounds. No palpable organomegaly. MUSCULOSKELETAL: No joint swelling or deformity. EXTREMITIES: No cyanosis, clubbing, or pedal edema. NEUROLOGICAL: Gross neurological examination did not reveal any focal deficits. SKIN: Bilateral lower extremity venous stasis with the couple ulcerations. Assessment and plan -Jaundice, elevated liver enzymes secondary to cholelithiasis there is no clear evidence of common bile ductal obstruction MRCP was ordered, general surgery is following the patient. Clinically patient doesn't appear to have cholecystitis at this time. -Bilateral lower extremity venous stasis ulcers for which patient was started on ceftezolin with local wound care. -Congestive failure chronic systolic dysfunction EF of around 25-30% patient is not in heart failure exacerbation at this time -Chronic kidney disease stage III patient creatinine is at his baseline patient takes torsemide at home which will be resumed next and-type 2 diabetes mellitus patient is presently nothing by mouth because of which will hold off on other diabetic medications except for sliding scale insulin and we'll cut down the long-acting insulin to 15 units from 25 units will monitor the blood sugars -History of atrial fibrillation proximal A. fib patient is an anticoagulation with Eliquis which is being L as per recommendation from general surgery. -Carotid artery disease with stents in the past -Hyperlipidemia next -Hypertension -Peripheral vascular disease -Chronic venous stasis dermatosis of both legs DVT prophylaxis: Will resume on anticoagulation when appropriate for now just in early ambulation and SCDs Past Medical History Past Medical History: Atrial Fibrillation, Asthma, Coronary Artery Disease (CAD), Cancer, Heart Failure, COPD, Diabetes Mellitus, Hyperlipidemia, Hypertension, Osteoarthritis (OA), Prostate Disorder, Renal Disease, Vascular Disorder Additional Past Medical History / Comment(s): PVD, multiple wounds bilateral legs/feet and has current L foot wound, dry scaley skin bilateral legs/feet, NIDDM type II-no longer on medications since weight loss, neuropathy bilateral legs/feet, subcutaneous B cell lymphoma diagnosed 08/2016 and completed chemotherapy 01/2017, CKD stage III, gout, back pain if stands too long, diverticular disease, benign colon polyps, BPH History of Any Multi-Drug Resistant Organisms: MRSA Date of last positivie culture/infection: 05/18/17 MDRO Source:: RIGHT LEG Past Surgical History: Heart Catheterization With Stent, Joint Replacement, Orthopedic Surgery, Tonsillectomy Additional Past Surgical History / Comment(s): 2013 PCI with 2 stents, infusaport R upper chest, 8 hand surgeries after injury in [place]-skin grafts/tendon repair-skin taken from L upper chest and bilateral ankle tendon donors, L total hip arthroplasty, colonoscopies/benign polyps. Past Anesthesia/Blood Transfusion Reactions: Previous Problems w/ Anesthesia Additional Past Anesthesia/Blood Transfusion Reaction / Comment(s): Difficulty waking with 2 surgeries performed while in the [employer] Date of Last Stent Placement:: 2013 Past Psychological History: No Psychological Hx Reported Additional Psychological History / Comment(s): Pt has clausterphobia. Pt resides with his spouse. He uses a walker to ambulate but this is becoming more difficult. Spouse states she feels they could use some home care assistance. She states he is not to go into a [place] [facility] [place], rehab at [facility] at this time 05/2022. 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 Smoking Status: Never smoker Past Alcohol Use History: Occasional Past Drug Use History: None Reported - Past Family History Mother Family Medical History: COPD, Diabetes Mellitus Additional Family Medical History / Comment(s): Mother of a MD at the age of 61 yrs. She was a heavy smoker. Father History Unknown: Yes Family Medical History: Myocardial Infarction (MD) Additional Family Medical History / Comment(s): Pt does not know father's medical history Medications and Allergies Home Medications Medication Instructions Recorded Confirmed Type Finasteride 5 mg PO DAILY 04/18/14 07/22/22 History Fluticasone Nasal [place] [Flonase 1 spray EA NOSTRIL Q12H 10/18/19 07/22/22 History Nasal [place]] Nitroglycerin Sl Tabs [Nitrostat] 0.4 mg SL Q5M PRN 01/13/21 07/22/22 History allopurinoL [Zyloprim] 300 mg PO DAILY 01/13/21 07/22/22 History Apixaban [Eliquis] 2.5 mg PO Q12H 06/06/22 07/22/22 History Beclomethasone Dip 80 Mcg/Puff 1 puff INHALATION RT-BID 06/06/22 07/22/22 History [Qvar 80 mcg] Dulaglutide [Trulicity] 0.75 mg SQ RODRIGUEZ 06/06/22 07/22/22 History Empagliflozin [Jardiance] 10 mg PO DAILY 06/06/22 07/22/22 History Ergocalciferol [Vitamin D2 (1250 1,250 mcg PO Q14D 06/06/22 07/22/22 History Mcg = 33638 Iu)] Folic Acid 1 mg PO DAILY 06/06/22 07/22/22 History Levothyroxine Sodium [Synthroid] 50 mcg PO DAILY 06/06/22 07/22/22 History calcitrioL [Calcitriol] 0.25 mcg PO MOFR 06/06/22 07/22/22 History Acetaminophen Tab [Tylenol] 650 mg PO Q6HR PRN tab 06/13/22 07/22/22 Rx Albuterol Nebulized [Ventolin 2.5 mg INHALATION RT-Q6H PRN ml 06/13/22 07/22/22 Rx Nebulized] Albuterol Sulfate [Proair Hfa] 1 puff INHALATION RT-Q6H PRN 06/25/22 07/22/22 History Atorvastatin [Lipitor] 40 mg PO DAILY 06/25/22 07/22/22 History Famotidine [Pepcid] 20 mg PO Q12H 06/25/22 07/22/22 History Oxybutynin Chloride [Oxybutynin 10 mg PO DAILY 06/25/22 07/22/22 History Chloride ER] bisacodyL 10 mg RECTAL Q48H PRN 06/25/22 07/22/22 History Insulin Glargine [Lantus Vial] 25 unit SQ HS 07/22/22 07/22/22 History Insulin Lispro [humaLOG Kwikpen] 10 unit SQ AC-TID PRN 07/22/22 07/22/22 History Insulin Lispro [humaLOG Kwikpen] See Protocol SQ AC-TID PRN 07/22/22 07/22/22 History Metoprolol Tartrate [Lopressor] 25 mg PO DAILY 07/22/22 07/22/22 History Allergies Allergy/AdvReac Type Severity Reaction Status Date / Time Penicillins Allergy Unknown Verified 07/22/22 21:04 Childhood/Patient went into a coma Physical Exam Vitals: Vital Signs Temp Pulse Pulse Resp BP BP Pulse Ox 07/23/22 07:00 97.9 F 54 L 14 123/69 98 07/23/22 01:43 70 17 07/23/22 01:07 97.7 F 67 16 114/71 98 07/22/22 22:41 97.5 F L 70 17 121/68 100 07/22/22 21:22 82 18 103/68 96 07/22/22 18:36 75 18 117/71 100 07/22/22 16:58 97.2 F L 80 16 108/66 95 Intake and Output 07/22/22 07/23/22 07/23/22 22:59 06:59 14:59 Intake Total 118 Output Total 500 Balance -382 Intake: Oral 118 Output: Urine 500 Other: Voiding Method Urinal Urinal # Voids 400 Weight 164.2 kg Results CBC & Chem 7: 07/23/22 04:19 07/23/22 04:19 Labs: Abnormal Lab Results - Last 24 Hours (Table) 07/22/22 07/22/22 07/22/22 Range/Units 17:31 17:31 19:58 MCHC (32.0-37.0) g/dL RDW 17.3 H (11.5-15.5) % Plt Count 133 L (150-450) k/uL Sodium 135 L (137-145) mmol/L Chloride 93 L (98-107) mmol/L Carbon Dioxide (20.0-27.5) mmol/L Anion Gap (10.00-18.00) mmol/L BUN 50 H (9-20) mg/dL Creatinine 1.61 H (0.66-1.25) mg/dL Est GFR (CKD-EPI)AfAm (60.0-200.0) Est GFR (CKD-EPI)NonAf (60.0-200.0) BUN/Creatinine Ratio (12.00-20.00) Ratio Glucose 186 H (74-99) mg/dL Calcium (8.7-10.3) mg/dL Total Bilirubin 2.5 H (0.2-1.3) mg/dL AST 91 H (17-59) U/L ALT 57 H (4-49) U/L Alkaline Phosphatase 891 H (38-126) U/L Total Protein (6.2-8.2) g/dL Albumin (3.8-4.9) g/dL Albumin/Globulin Ratio (1.60-3.17) g/dL Urine Glucose (UA) 4+ H (Negative) 07/23/22 07/23/22 Range/Units 04:19 04:19 MCHC 31.8 L (32.0-37.0) g/dL RDW 18.6 H (11.5-15.5) % Plt Count (150-450) k/uL Sodium (137-145) mmol/L Chloride (98-107) mmol/L Carbon Dioxide 33.4 H (20.0-27.5) mmol/L Anion Gap 6.60 L (10.00-18.00) mmol/L BUN 39.5 H (9-20) mg/dL Creatinine 1.6 H (0.66-1.25) mg/dL Est GFR (CKD-EPI)AfAm 48.8 L (60.0-200.0) Est GFR (CKD-EPI)NonAf 42.1 L (60.0-200.0) BUN/Creatinine Ratio 24.69 H (12.00-20.00) Ratio Glucose 127 H (74-99) mg/dL Calcium 8.6 L (8.7-10.3) mg/dL Total Bilirubin 1.80 H (0.2-1.3) mg/dL AST 50 H (17-59) U/L ALT 59 H (4-49) U/L Alkaline Phosphatase 641 H (38-126) U/L Total Protein 5.9 L (6.2-8.2) g/dL Albumin 3.1 L (3.8-4.9) g/dL Albumin/Globulin Ratio 1.11 L (1.60-3.17) g/dL Urine Glucose (UA) (Negative) Thrombosis Risk Factor Assmnt - Choose All That Apply Each Factor Represents 1 point: Heart failure (<1month), Obesity (BMI >25), Swollen legs (current) Each Risk Factor Represents 2 Points: Age 61-74 years Other congenital or acquired thrombophilia - If yes, enter type in comment: No Thrombosis Risk Factor Assessment Total Risk Factor Score: 5 Thrombosis Risk Factor Assessment Level: High Risk
[2022-07-23] MEDS: FLUTICASONE 50MCG/SPRAY NASAL 16GM EA NOSTRIL SCH ×2 (12:17→20:02)
[2022-07-23] MEDS: METOPROLOL TARTRATE 25 MG TAB PO SCH (12:18)
[2022-07-23] MEDS: TORSEMIDE 20 MG TAB PO SCH (12:18)
[2022-07-23 12:29] LABS: Glucose,Whole Blood 145 mg/dL (70-110)
--- NOTE | 2022-07-23 12:29 | P.PN ---
Subjective Progress Note Date: 07/23/22 Principal diagnosis: Cholelithiasis, elevated liver function tests Pt continues to complain of nauseaand "dry heaves" No significant abdominal pain tolerating diet w poor po itake Objective - Vital Signs Vital signs: Vital Signs Temp 97.9 F 07/23/22 07:00 Pulse 54 L 07/23/22 07:00 Resp 14 07/23/22 07:00 BP 123/69 07/23/22 07:00 Pulse Ox 98 07/23/22 07:00 FiO2 Intake & Output 07/22/22 07/23/22 07/23/22 18:59 06:59 18:59 Intake Total 118 Output Total 500 Balance -382 Weight 164.2 kg 164.2 kg Intake: Oral 118 Output: Urine 500 Other: Voiding Method Urinal Urinal # Voids 400 - Constitutional Constitutional Comment(s): NAD, slightly uncomfortable, skin appears w yellow tint - EENT Eyes: Present: EOMI, PERRLA - Neck Neck: Present: normal ROM - Respiratory Details: non labored respirations - Cardiovascular Rhythm: irregularly irregular - Gastrointestinal Gastrointestinal Comment(s): Soft, minimal RUQ tenderness w deep palpation - Integumentary Integumentary Comment(s): yellowish tint - Neurologic Neurologic Comment(s): alert, Ox3 - Psychiatric Psychiatric Comment(s): appears depressed - Labs CBC & Chem 7: 07/23/22 04:19 07/23/22 04:19 Labs: Abnormal Lab Results - Last 24 Hours (Table) 07/22/22 07/22/22 07/22/22 Range/Units 17:31 17:31 19:58 MCHC (32.0-37.0) g/dL RDW 17.3 H (11.5-15.5) % Plt Count 133 L (150-450) k/uL Sodium 135 L (137-145) mmol/L Chloride 93 L (98-107) mmol/L Carbon Dioxide (20.0-27.5) mmol/L Anion Gap (10.00-18.00) mmol/L BUN 50 H (9-20) mg/dL Creatinine 1.61 H (0.66-1.25) mg/dL Est GFR (CKD-EPI)AfAm (60.0-200.0) Est GFR (CKD-EPI)NonAf (60.0-200.0) BUN/Creatinine Ratio (12.00-20.00) Ratio Glucose 186 H (74-99) mg/dL Calcium (8.7-10.3) mg/dL Total Bilirubin 2.5 H (0.2-1.3) mg/dL AST 91 H (17-59) U/L ALT 57 H (4-49) U/L Alkaline Phosphatase 891 H (38-126) U/L Total Protein (6.2-8.2) g/dL Albumin (3.8-4.9) g/dL Albumin/Globulin Ratio (1.60-3.17) g/dL Urine Glucose (UA) 4+ H (Negative) 07/23/22 07/23/22 Range/Units 04:19 04:19 MCHC 31.8 L (32.0-37.0) g/dL RDW 18.6 H (11.5-15.5) % Plt Count (150-450) k/uL Sodium (137-145) mmol/L Chloride (98-107) mmol/L Carbon Dioxide 33.4 H (20.0-27.5) mmol/L Anion Gap 6.60 L (10.00-18.00) mmol/L BUN 39.5 H (9-20) mg/dL Creatinine 1.6 H (0.66-1.25) mg/dL Est GFR (CKD-EPI)AfAm 48.8 L (60.0-200.0) Est GFR (CKD-EPI)NonAf 42.1 L (60.0-200.0) BUN/Creatinine Ratio 24.69 H (12.00-20.00) Ratio Glucose 127 H (74-99) mg/dL Calcium 8.6 L (8.7-10.3) mg/dL Total Bilirubin 1.80 H (0.2-1.3) mg/dL AST 50 H (17-59) U/L ALT 59 H (4-49) U/L Alkaline Phosphatase 641 H (38-126) U/L Total Protein 5.9 L (6.2-8.2) g/dL Albumin 3.1 L (3.8-4.9) g/dL Albumin/Globulin Ratio 1.11 L (1.60-3.17) g/dL Urine Glucose (UA) (Negative) Assessment and Plan Assessment: 72 yo male w elevated LFT, cholelithiasis, persistent nausea. R/O choledocholithiasis r/o cholecystitis High risk surgical candidate 2 medical issues Plan: MRCP cancelled per radiology. Will order HIDA, monitor LFT's
[2022-07-23] MEDS: INSULIN ASPART (NovoLOG) 100 UNIT/ML VIAL SQ SCH ×3 (12:35→20:01)
[2022-07-23] MEDS: ceFAZolin 3 GM in SODIUM CHLORIDE 0.9% 100 ML IVPB SCH ×2 (17:31→23:15)
[2022-07-23 17:32] LABS: Glucose,Whole Blood 121 mg/dL (70-110)
--- NOTE | 2022-07-23 17:43 | NM ---
EXAMINATION TYPE: NM hepatobiliary w CCK DATE OF EXAM: 07/23/2022 COMPARISON: NONE HISTORY: TECHNIQUE: After the intravenous administration of 5.48 mCi Tc 99m Mebrofenin hepatobiliary scintigra phy is performed. Immediate images post injection. FINDINGS: There is satisfactory initial accumulation of tracer by the liver. The gallbladder is visualized wit hin 90 minutes. The small bowel activity is noted within 16 minutes. CCK was administered, patient was injected with 3.3 mcg of Kinevac, and gallbladder ejection fraction is calculated at 48 %, in the normal range. Therefore there is no scintigraphic evidence of cystic or common bile duct obstructio n to suggest acute cholecystitis or gallbladder dyskinesia. IMPRESSION: The gallbladder ejection fraction of 48%. There is delayed appearance of the gallbladder.
[2022-07-23 19:49] LABS: Glucose,Whole Blood 167 mg/dL (70-110)
[2022-07-23] MEDS: INSULIN DETEMIR (LEVEMIR) 100 UNIT/ML SYR SQ SCH (20:01)
[2022-07-23] MEDS: FLUTICASONE 110 MCG INHALER INHALATION SCH (20:12)
--- NOTE | 2022-07-24 00:34 | P.CONS ---
History of Present Illness - Reason for Consult Consult date: 07/23/22 - History of Present Illness Patient is a 72-year-old male with multiple comorbidities he did have a history of recurrent lower extremity ulcers and cellulitis and is currently dealing with a nonhealing wound on the dorsal aspect of the right leg, patient apparently did have a blood work done in the outpatient setting by her primary care physician and the patient was noticed to have elevated alkaline phosphatase and concern for possible obstructive gallstone, patient has been complaining of slightly nausea that been going on for 3 to 4 weeks and decreased appetite but denies having any abdominal pain denies any vomiting or diarrhea denies any chest pain or shortness of breath or cough patient did have 1 wound to the right anterior lower leg that has not been healing and did have some swelling and minimal redness to the leg but no foul-smelling drainage patient on presentation to the hospital was afebrile and no fever have been recorded subsequently patient did have a normal white count did have elevated BUN/creatinine and elevated liver enzymes urine has been negative blood cultures obtained which are currently pending patient did have a gallbladder ultrasound cholelithiasis with gallbladder wall thickening consistent with acute and chronic cholecystitis for the patient has been evaluated by general surgery HIDA scan has been ordered infectious disease was consulted for further management of antibiotic therapy Past Medical History Past Medical History: Atrial Fibrillation, Asthma, Coronary Artery Disease (CAD), Cancer, Heart Failure, COPD, Diabetes Mellitus, Hyperlipidemia, Hypertension, Osteoarthritis (OA), Prostate Disorder, Renal Disease, Vascular Disorder Additional Past Medical History / Comment(s): PVD, multiple wounds bilateral legs/feet and has current L foot wound, dry scaley skin bilateral legs/feet, NIDDM type II-no longer on medications since weight loss, neuropathy bilateral legs/feet, subcutaneous B cell lymphoma diagnosed 08/2016 and completed chemotherapy 01/2017, CKD stage III, gout, back pain if stands too long, diverticular disease, benign colon polyps, BPH History of Any Multi-Drug Resistant Organisms: MRSA Year Discovered:: 05/18/17 MDRO Source:: RIGHT LEG Past Surgical History: Heart Catheterization With Stent, Joint Replacement, Orthopedic Surgery, Tonsillectomy Additional Past Surgical History / Comment(s): 2013 PCI with 2 stents, infusaport R upper chest, 8 hand surgeries after injury in [place]-skin grafts/tendon repair-skin taken from L upper chest and bilateral ankle tendon donors, L total hip arthroplasty, colonoscopies/benign polyps. Past Anesthesia/Blood Transfusion Reactions: Previous Problems w/ Anesthesia Additional Past Anesthesia/Blood Transfusion Reaction / Comm: Difficulty waking with 2 surgeries performed while in the [employer] Date of Last Stent Placement:: 2013 Past Psychological History: No Psychological Hx Reported Additional Psychological History / Comment(s): Pt has clausterphobia. Pt resides with his spouse. He uses a walker to ambulate but this is becoming more difficult. Spouse states she feels they could use some home care assistance. She states he is not to go into a [facility], rehab at [facility] at this time 05/2022. 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 He drives. Smoking Status: Never smoker Past Alcohol Use History: Occasional Past Drug Use History: None Reported - Past Family History Mother Family Medical History: COPD, Diabetes Mellitus Additional Family Medical History / Comment(s): Mother of a AR at the age of 61 yrs. She was a heavy smoker. Father History Unknown: Yes Family Medical History: Myocardial Infarction (AR) Additional Family Medical History / Comment(s): Pt does not know father's medical history Medications and Allergies Home Medications Medication Instructions Recorded Confirmed Type Finasteride 5 mg PO DAILY 04/18/14 07/22/22 History Fluticasone Nasal [place] [Flonase 1 spray EA NOSTRIL Q12H 10/18/19 07/22/22 History Nasal [place]] Nitroglycerin Sl Tabs [Nitrostat] 0.4 mg SL Q5M PRN 01/13/21 07/22/22 History allopurinoL [Zyloprim] 300 mg PO DAILY 01/13/21 07/22/22 History Apixaban [Eliquis] 2.5 mg PO Q12H 06/06/22 07/22/22 History Beclomethasone Dip 80 Mcg/Puff 1 puff INHALATION RT-BID 06/06/22 07/22/22 History [Qvar 80 mcg] Dulaglutide [Trulicity] 0.75 mg SQ RODRIGUEZ 06/06/22 07/22/22 History Empagliflozin [Jardiance] 10 mg PO DAILY 06/06/22 07/22/22 History Ergocalciferol [Vitamin D2 (1250 1,250 mcg PO Q14D 06/06/22 07/22/22 History Mcg = 49962 Iu)] Folic Acid 1 mg PO DAILY 06/06/22 07/22/22 History Levothyroxine Sodium [Synthroid] 50 mcg PO DAILY 06/06/22 07/22/22 History calcitrioL [Calcitriol] 0.25 mcg PO MOFR 06/06/22 07/22/22 History Acetaminophen Tab [Tylenol] 650 mg PO Q6HR PRN tab 06/13/22 07/22/22 Rx Albuterol Nebulized [Ventolin 2.5 mg INHALATION RT-Q6H PRN ml 06/13/22 07/22/22 Rx Nebulized] Albuterol Sulfate [Proair Hfa] 1 puff INHALATION RT-Q6H PRN 06/25/22 07/22/22 History Atorvastatin [Lipitor] 40 mg PO DAILY 06/25/22 07/22/22 History Famotidine [Pepcid] 20 mg PO Q12H 06/25/22 07/22/22 History Oxybutynin Chloride [Oxybutynin 10 mg PO DAILY 06/25/22 07/22/22 History Chloride ER] bisacodyL 10 mg RECTAL Q48H PRN 06/25/22 07/22/22 History Insulin Glargine [Lantus Vial] 25 unit SQ HS 07/22/22 07/22/22 History Insulin Lispro [humaLOG Kwikpen] 10 unit SQ AC-TID PRN 07/22/22 07/22/22 History Insulin Lispro [humaLOG Kwikpen] See Protocol SQ AC-TID PRN 07/22/22 07/22/22 History Metoprolol Tartrate [Lopressor] 25 mg PO DAILY 07/22/22 07/22/22 History Allergies Allergy/AdvReac Type Severity Reaction Status Date / Time Penicillins Allergy Unknown Verified 07/22/22 21:04 Childhood/Patient went into a coma Physical Exam Vitals: Vital Signs Temp Pulse Pulse Resp BP BP Pulse Ox 07/23/22 13:27 98 F 79 16 104/66 92 L 07/23/22 07:00 97.9 F 54 L 14 123/69 98 07/23/22 01:43 70 17 07/23/22 01:07 97.7 F 67 16 114/71 98 07/22/22 22:41 97.5 F L 70 17 121/68 100 07/22/22 21:22 82 18 103/68 96 07/22/22 18:36 75 18 117/71 100 07/22/22 16:58 97.2 F L 80 16 108/66 95 Intake and Output 07/23/22 07/23/22 07/23/22 06:59 14:59 22:59 Intake Total 118 Output Total 500 Balance -382 Intake: Oral 118 Output: Urine 500 Other: Voiding Method Urinal Urinal # Voids 400 3 Results CBC & Chem 7: 07/23/22 04:19 07/23/22 04:19 Labs: Abnormal Lab Results - Last 24 Hours (Table) 07/22/22 07/22/22 07/22/22 Range/Units 17:31 17:31 19:58 MCHC (32.0-37.0) g/dL RDW 17.3 H (11.5-15.5) % Plt Count 133 L (150-450) k/uL Sodium 135 L (137-145) mmol/L Chloride 93 L (98-107) mmol/L Carbon Dioxide (20.0-27.5) mmol/L Anion Gap (10.00-18.00) mmol/L BUN 50 H (9-20) mg/dL Creatinine 1.61 H (0.66-1.25) mg/dL Est GFR (CKD-EPI)AfAm (60.0-200.0) Est GFR (CKD-EPI)NonAf (60.0-200.0) BUN/Creatinine Ratio (12.00-20.00) Ratio Glucose 186 H (74-99) mg/dL POC Glucose (mg/dL) (70-110) mg/dL Calcium (8.7-10.3) mg/dL Total Bilirubin 2.5 H (0.2-1.3) mg/dL AST 91 H (17-59) U/L ALT 57 H (4-49) U/L Alkaline Phosphatase 891 H (38-126) U/L Total Protein (6.2-8.2) g/dL Albumin (3.8-4.9) g/dL Albumin/Globulin Ratio (1.60-3.17) g/dL Urine Glucose (UA) 4+ H (Negative) 07/23/22 07/23/22 07/23/22 Range/Units 04:19 04:19 12:27 MCHC 31.8 L (32.0-37.0) g/dL RDW 18.6 H (11.5-15.5) % Plt Count (150-450) k/uL Sodium (137-145) mmol/L Chloride (98-107) mmol/L Carbon Dioxide 33.4 H (20.0-27.5) mmol/L Anion Gap 6.60 L (10.00-18.00) mmol/L BUN 39.5 H (9-20) mg/dL Creatinine 1.6 H (0.66-1.25) mg/dL Est GFR (CKD-EPI)AfAm 48.8 L (60.0-200.0) Est GFR (CKD-EPI)NonAf 42.1 L (60.0-200.0) BUN/Creatinine Ratio 24.69 H (12.00-20.00) Ratio Glucose 127 H (74-99) mg/dL POC Glucose (mg/dL) 145 H (70-110) mg/dL Calcium 8.6 L (8.7-10.3) mg/dL Total Bilirubin 1.80 H (0.2-1.3) mg/dL AST 50 H (17-59) U/L ALT 59 H (4-49) U/L Alkaline Phosphatase 641 H (38-126) U/L Total Protein 5.9 L (6.2-8.2) g/dL Albumin 3.1 L (3.8-4.9) g/dL Albumin/Globulin Ratio 1.11 L (1.60-3.17) g/dL Urine Glucose (UA) (Negative) Assessment and Plan Plan: 1patient presented to hospital with nausea decreased appetite and elevated liver enzymes patient did have abnormal ultrasound of the gallbladder suspicious for acute on chronic cholecystitis with HIDA scan currently pending, patient also have a bilateral lower extremity mild cellulitis and a wound on the right anterior lower leg. 2penicillin allergy however the patient has tolerated cephalosporins in the past without any problem. 3patient antibiotic will be adjusted to Rocephin 2 g daily that should take care of both lower extremity cellulitis as well as cholecystitis. 4local wound care to the right anterior leg wound with a dry Aquacel silver dressing change every 48 hour. We will follow on clinical condition and cultures to further adjust medication if needed Thank you for this consultation will follow this patient along with you Time with Patient: Greater than 30
[2022-07-24] MEDS: LEVOTHYROXINE 50 MCG TAB PO SCH (05:55)
[2022-07-24 07:03] LABS: Glucose,Whole Blood 55 mg/dL (70-110)
[2022-07-24 07:32] LABS: Glucose,Whole Blood 57 mg/dL (70-110)
[2022-07-24] MEDS: INSULIN ASPART (NovoLOG) 100 UNIT/ML VIAL SQ SCH ×4 (07:48→20:21)
[2022-07-24 07:50] LABS: Glucose,Whole Blood 72 mg/dL (70-110)
[2022-07-24] MEDS: FLUTICASONE 50MCG/SPRAY NASAL 16GM EA NOSTRIL SCH ×2 (08:24→20:20)
[2022-07-24] MEDS: PANTOPRAZOLE 40 MG TABLET PO SCH (08:27)
[2022-07-24] MEDS: OXYBUTYNIN 10 MG TAB.ER.24 PO SCH (08:27)
[2022-07-24] MEDS: TORSEMIDE 20 MG TAB PO SCH (08:28)
[2022-07-24] MEDS: allopurinoL 300 MG TAB PO SCH (08:28)
[2022-07-24] MEDS: METOPROLOL TARTRATE 25 MG TAB PO SCH (08:28)
[2022-07-24] MEDS: FINASTERIDE 5 MG TAB PO SCH (08:28)
[2022-07-24] MEDS: FLUTICASONE 110 MCG INHALER INHALATION SCH ×2 (08:37→20:09)
[2022-07-24] MEDS ORDERED: FAMOTIDINE 20 MG TAB PO SCH (09:00)
[2022-07-24 09:36] LABS: HCT 44.1 % (39.6-50.0); HGB 13.9 g/dL (13.0-17.0); MCH 30.5 pg (27.0-32.0); MCHC 31.5 g/dL (32.0-37.0); MCV 96.7 fL (80.0-97.0); Mean Platelet Volume 11.5 fL (9.5-12.2); NRBC Per 100 WBC 0 /100 WBCS (0.0-0.0); Platelet Count 163 X 10*3/uL (140-440); RBC 4.56 X 10*6/uL (4.40-5.60); RDW 18.6 % (11.5-14.5); WBC 5.68 X 10*3/uL (4.50-10.00)
[2022-07-24 09:45] LABS: African American GFR (CKD) 45.4 (60.0-200.0); Albumin 3.2 g/dL (3.8-4.9); Albumin/Globulin Ratio 1.1 (1.60-3.17); Anion Gap 10.4 mmol/L (10.00-18.00); BUN/Creat Ratio 20.53 Ratio (12.00-20.00); Blood Urea Nitrogen 34.9 mg/dL (9.0-27.0); Calcium 8.9 mg/dL (8.7-10.3); Carbon Dioxide 31.6 mmol/L (20.0-27.5); Globulin 2.9 g/dL (1.6-3.3); Magnesium 2.5 mg/dL (1.5-2.4); Non-African American GFR(CKD) 39.1 (60.0-200.0); Potassium 4.4 mmol/L (3.5-5.5); Total Bilirubin 1.2 mg/dL (0.30-1.20); Total Protein 6.1 g/dL (6.2-8.2)
[2022-07-24] MEDS: ONDANSETRON 4 MG/2 ML VIAL IVP PRN (10:17)
--- NOTE | 2022-07-24 11:48 | P.PN ---
Subjective Patient was on his 72-year-old male with known history of heart disease with extremely low ejection fraction of around 25% was instructed to come to Hospital because of elevated liver enzymes and elevated alkaline phosphatase and patient is found to have possible obstructing stone. Patient has minimally elevated bilirubin of around 1.8 and AST and ALT are elevated along with alkaline phosphatase. Ultrasound showed gallstones with some possible wall thickening did not show dilated common bile duct bile duct stone. Neurosurgery was consulted and Gen. surgery evaluated the patient. Patient does have chronic kidney disease stage III with baseline creatinine of around 1.6-1.8 and patient creatinine is at his baseline at this time. Patient denied any nausea vomiting denied any significant abdominal pain. Patient also has bilateral lower extremity chronic venous stasis and the couple ulcerations in the bilateral figueredo area, for which infectious disease was consulted although it says patient is ALLERGIC to penicillin and patient was able to tolerate Cefzil in the past patient doesn't have any MRSA history infections disease evaluated the patient and patient will be started on ceftezolin 07/24/2022 Patient can use to have severe nausea it to be evaluated by general surgery today patient remains nothing by mouth. Patient does have cholelithiasis. Patient's liver enzymes have come down bilirubin is 1.2 today creatinine remained stable at around 1.6-1.7 patient is not in heart failure exacerbation at this time Constitutional: Denied any fatigue denied any fever. Cardio vascular: denied any chest pain, palpitations Gastrointestinal as mentioned in the interval history Pulmonary: Denied any shortness of breath cough Neurologic denied any new focal deficits All inpatient medications were reviewed and appropriate changes in these medications as dictated in the interval history and assessment and plan. PHYSICAL EXAMINATION: GENERAL: The patient is alert and oriented x3, not in any acute distress. Well developed, well nourished. HEENT: Pupils are round and equally reacting to light. EOMI. may be mild scleral icterus. No conjunctival pallor. Normocephalic, atraumatic. No pharyngeal erythema. No thyromegaly. CARDIOVASCULAR: S1 and S2 present. No murmurs, rubs, or gallops. PULMONARY: Chest is clear to auscultation, no wheezing or crackles. ABDOMEN: Soft, nontender, nondistended, normoactive bowel sounds. No palpable organomegaly. MUSCULOSKELETAL: No joint swelling or deformity. EXTREMITIES: No cyanosis, clubbing, or pedal edema. NEUROLOGICAL: Gross neurological examination did not reveal any focal deficits. SKIN: Bilateral lower extremity venous stasis with the couple ulcerations. Assessment and plan -Symptomatic cholelithiasis: General surgery is following the patient liver enzymes have come down possibly of choledocholithiasis is low in April surgery is planning on 6 taking patient for surgery patient is intermediate operative risk considering his significant heart failure history, same thing was discussed with the patient and family and they are agreeable for surgery with that risk. -Bilateral lower extremity venous stasis ulcers for which patient was started on ceftezolin with local wound care. -Congestive failure chronic systolic dysfunction EF of around 25-30% patient is not in heart failure exacerbation at this time -Chronic kidney disease stage III patient creatinine is at his baseline patient takes torsemide at home which will be resumed -type 2 diabetes mellitus patient is presently nothing by mouth because of which will hold off on other diabetic medications except for sliding scale insulin and we'll cut down the long-acting insulin to 15 units from 25 units will monitor the blood sugars -History of atrial fibrillation proximal A. fib patient is an anticoagulation with Eliquis which is being L as per recommendation from general surgery. -Coronary artery disease with stents in the past -Hyperlipidemia next -Hypertension -Peripheral vascular disease -Chronic venous stasis dermatosis of both legs DVT prophylaxis: Will resume on anticoagulation when appropriate for now just in early ambulation and SCDs Objective - Vital Signs Vital signs: Vital Signs Temp 97.6 F 07/24/22 07:00 Pulse 72 07/24/22 07:00 Resp 20 07/24/22 07:00 BP 123/73 07/24/22 07:00 Pulse Ox 98 07/24/22 07:00 FiO2 Intake & Output 07/23/22 07/24/22 07/24/22 18:59 06:59 18:59 Intake Total 236 Output Total 500 500 250 Balance -264 -500 -250 Intake: Oral 236 Output: Urine 500 500 250 Other: Voiding Method Urinal Urinal # Voids 3 2 - Labs CBC & Chem 7: 07/24/22 03:43 07/24/22 03:43 Labs: Abnormal Lab Results - Last 24 Hours (Table) 07/23/22 07/23/22 07/23/22 Range/Units 12:27 17:30 19:48 MCHC (32.0-37.0) g/dL RDW (11.5-14.5) % Carbon Dioxide (20.0-27.5) mmol/L BUN (9.0-27.0) mg/dL Creatinine (0.6-1.5) mg/dL Est GFR (CKD-EPI)AfAm (60.0-200.0) Est GFR (CKD-EPI)NonAf (60.0-200.0) BUN/Creatinine Ratio (12.00-20.00) Ratio Glucose (70-110) mg/dL POC Glucose (mg/dL) 145 H 121 H 167 H (70-110) mg/dL Magnesium (1.5-2.4) mg/dL AST (14-35) U/L Alkaline Phosphatase (41-126) U/L Total Protein (6.2-8.2) g/dL Albumin (3.8-4.9) g/dL Albumin/Globulin Ratio (1.60-3.17) g/dL 07/24/22 07/24/22 07/24/22 Range/Units 03:43 03:43 07:00 MCHC 31.5 L (32.0-37.0) g/dL RDW 18.6 H (11.5-14.5) % Carbon Dioxide 31.6 H (20.0-27.5) mmol/L BUN 34.9 H (9.0-27.0) mg/dL Creatinine 1.7 H (0.6-1.5) mg/dL Est GFR (CKD-EPI)AfAm 45.4 L (60.0-200.0) Est GFR (CKD-EPI)NonAf 39.1 L (60.0-200.0) BUN/Creatinine Ratio 20.53 H (12.00-20.00) Ratio Glucose 64 L (70-110) mg/dL POC Glucose (mg/dL) 55 L (70-110) mg/dL Magnesium 2.5 H (1.5-2.4) mg/dL AST 43 H (14-35) U/L Alkaline Phosphatase 584 H (41-126) U/L Total Protein 6.1 L (6.2-8.2) g/dL Albumin 3.2 L (3.8-4.9) g/dL Albumin/Globulin Ratio 1.10 L (1.60-3.17) g/dL 07/24/22 Range/Units 07:25 MCHC (32.0-37.0) g/dL RDW (11.5-14.5) % Carbon Dioxide (20.0-27.5) mmol/L BUN (9.0-27.0) mg/dL Creatinine (0.6-1.5) mg/dL Est GFR (CKD-EPI)AfAm (60.0-200.0) Est GFR (CKD-EPI)NonAf (60.0-200.0) BUN/Creatinine Ratio (12.00-20.00) Ratio Glucose (70-110) mg/dL POC Glucose (mg/dL) 57 L (70-110) mg/dL Magnesium (1.5-2.4) mg/dL AST (14-35) U/L Alkaline Phosphatase (41-126) U/L Total Protein (6.2-8.2) g/dL Albumin (3.8-4.9) g/dL Albumin/Globulin Ratio (1.60-3.17) g/dL Microbiology - Last 24 Hours (Table) 07/22/22 20:07 Blood Culture - Preliminary Blood No Growth after 24 hours 07/22/22 20:07 Blood Culture - Preliminary Blood No Growth after 24 hours
--- NOTE | 2022-07-24 11:53 | P.PN ---
Progress Note - Text Progress Note Date: 07/24/22 S: Pt continues to c/o nausea, feeling as though he wants to throw up Denies significant pain O: 97.6 72 123/73 Abdomen Soft, no significant tenderness noted on exam Hbg 13.9 wbc 5.7 plt 163 Na 141 K 4.4 bun/cr 35/1.7 T bili 1.2 ALT 45 AST 43 Alk P 584 ( all decreased) HIDA patent cystic duct, no evidence cbd obxn EF 48% delayed appearance A/P 72 yo male w mutiple medical problems (cardiomyopathy/ CKD, DM, lymphoma) Pos for cholelithiasis, elevated LFT neg for acute cholecystitis per HIDA Pt and spouse seem fixated on GB as being cause of current Sx's , Pt would need cardiac eval for risk stratification before any Gen anesthesia and surgery. GI eval for other causes of Sx's would also be of benefit
[2022-07-24 12:27] LABS: Glucose,Whole Blood 105 mg/dL (70-110)
--- NOTE | 2022-07-24 15:20 | P.CRDCN ---
History of Present Illness Consult date: 07/24/22 Requesting physician: Sandeep Cook Reason for Consult (text): preoperative clearance History of present illness: This is a pleasant 72-year-old gentleman with a past medical history of CAD, permanent atrial fibrillation, chronic lower extremity edema, lymphoma, hypertension, hyperlipidemia, chronic kidney disease, cardiac catheterization for very 2020 revealed intermediate to severe disease involving the proximal LAD with calcified tubular lesion appearing to be in range of 60% at that time medical management was recommended. He's been hospitalized recently and echocardiogram at that time showed severely impaired LV systolic function with an ejection fraction of 25-30%, severe right ventricular dilatation, moderate pulmonary hypertension, [id number] aortic regurgitation, moderate mitral regurgitation and moderate tricuspid regurgitation. Following his most recent admission he was discharged to [facility] and actually had a hospice consult. Had not been doing well. He was advised to come to the emergency department after recent labs showed elevated LFTs. We been asked to see the patient in [facility] for preop clearance for possible cholecystectomy. Imaging studies do show cholelithiasis but there is no evidence of acute cholecystitis. The patient has multiple complaints including weakness, lethargy, poor taste in his mouth and nausea. He's been seen and evaluated by surgery who believes he needs further GI evaluation for other causes of his symptoms but patient and spouse present no seem to be fixated on the gallbladder has been the cause of the symptoms were asked to see the patient the patient for risk stratification. Labs today showed BUN 34.9, creatinine 1.7, total bilirubin 1.2, AST 43, ALT 45 and alkaline phosphatase of 584. There has been some improvement in LFTs since admission. Past Medical History Past Medical History: Atrial Fibrillation, Asthma, Coronary Artery Disease (CAD), Cancer, Heart Failure, COPD, Diabetes Mellitus, Hyperlipidemia, Hypertension, Osteoarthritis (OA), Prostate Disorder, Renal Disease, Vascular Disorder Additional Past Medical History / Comment(s): PVD, multiple wounds bilateral legs/feet and has current L foot wound, dry scaley skin bilateral legs/feet, NIDDM type II-no longer on medications since weight loss, neuropathy bilateral legs/feet, subcutaneous B cell lymphoma diagnosed 08/2016 and completed chemotherapy 01/2017, CKD stage III, gout, back pain if stands too long, diverticular disease, benign colon polyps, BPH History of Any Multi-Drug Resistant Organisms: MRSA Date of last positivie culture/infection: 05/18/17 MDRO Source:: RIGHT LEG Past Surgical History: Heart Catheterization With Stent, Joint Replacement, Orthopedic Surgery, Tonsillectomy Additional Past Surgical History / Comment(s): 2013 PCI with 2 stents, infusa port R upper chest, 8 hand surgeries after injury in [place]-skin grafts/tendon repair-skin taken from L upper chest and bilateral ankle tendon donors, L total hip arthroplasty, colonoscopies/benign polyps. Past Anesthesia/Blood Transfusion Reactions: Previous Problems w/ Anesthesia Additional Past Anesthesia/Blood Transfusion Reaction / Comment(s): Difficulty waking with 2 surgeries performed while in the [employer] Date of Last Stent Placement:: 2013 Past Psychological History: No Psychological Hx Reported Additional Psychological History / Comment(s): Pt has clausterphobia. Pt resides with his spouse. He uses a walker to ambulate but this is becoming more difficult. Spouse states she feels they could use some home care assistance. She states he is not to go into a [facility], rehab at [facility] at this time 05/2022. 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 He drives. Smoking Status: Never smoker Past Alcohol Use History: Occasional Past Drug Use History: None Reported - Past Family History Mother Family Medical History: COPD, Diabetes Mellitus Additional Family Medical History / Comment(s): Mother of a [facility] at the age of 61 yrs. She was a heavy smoker. Father History Unknown: Yes Family Medical History: Myocardial Infarction ([facility]) Additional Family Medical History / Comment(s): Pt does not know father's medical history Medications and Allergies Home Medications Medication Instructions Recorded Confirmed Type Finasteride 5 mg PO DAILY 04/18/14 07/22/22 History Fluticasone Nasal [place] [Flonase 1 spray EA NOSTRIL Q12H 10/18/19 07/22/22 History Nasal [place]] Nitroglycerin Sl Tabs [Nitrostat] 0.4 mg SL Q5M PRN 01/13/21 07/22/22 History allopurinoL [Zyloprim] 300 mg PO DAILY 01/13/21 07/22/22 History Apixaban [Eliquis] 2.5 mg PO Q12H 06/06/22 07/22/22 History Beclomethasone Dip 80 Mcg/Puff 1 puff INHALATION RT-BID 06/06/22 07/22/22 History [Qvar 80 mcg] Dulaglutide [Trulicity] 0.75 mg SQ RODRIGUEZ 06/06/22 07/22/22 History Empagliflozin [Jardiance] 10 mg PO DAILY 06/06/22 07/22/22 History Ergocalciferol [Vitamin D2 (1250 1,250 mcg PO Q14D 06/06/22 07/22/22 History Mcg = 65325 Iu)] Folic Acid 1 mg PO DAILY 06/06/22 07/22/22 History Levothyroxine Sodium [Synthroid] 50 mcg PO DAILY 06/06/22 07/22/22 History calcitrioL [Calcitriol] 0.25 mcg PO MOFR 06/06/22 07/22/22 History Acetaminophen Tab [Tylenol] 650 mg PO Q6HR PRN tab 06/13/22 07/22/22 Rx Albuterol Nebulized [Ventolin 2.5 mg INHALATION RT-Q6H PRN ml 06/13/22 07/22/22 Rx Nebulized] Albuterol Sulfate [Proair Hfa] 1 puff INHALATION RT-Q6H PRN 06/25/22 07/22/22 History Atorvastatin [Lipitor] 40 mg PO DAILY 06/25/22 07/22/22 History Famotidine [Pepcid] 20 mg PO Q12H 06/25/22 07/22/22 History Oxybutynin Chloride [Oxybutynin 10 mg PO DAILY 06/25/22 07/22/22 History Chloride ER] bisacodyL 10 mg RECTAL Q48H PRN 06/25/22 07/22/22 History Insulin Glargine [Lantus Vial] 25 unit SQ HS 07/22/22 07/22/22 History Insulin Lispro [humaLOG Kwikpen] 10 unit SQ AC-TID PRN 07/22/22 07/22/22 History Insulin Lispro [humaLOG Kwikpen] See Protocol SQ AC-TID PRN 07/22/22 07/22/22 History Metoprolol Tartrate [Lopressor] 25 mg PO DAILY 07/22/22 07/22/22 History Allergies Allergy/AdvReac Type Severity Reaction Status Date / Time Penicillins Allergy Unknown Verified 07/22/22 21:04 Childhood/Patient went into a coma Physical Exam Vitals: Vital Signs Temp Pulse Resp BP Pulse Ox 07/24/22 13:17 97.7 F 82 18 105/66 99 07/24/22 07:00 97.6 F 72 20 123/73 98 07/24/22 01:49 97.5 F L 69 18 107/63 100 07/23/22 18:53 97.8 F 75 18 107/68 96 Intake and Output 07/23/22 07/24/22 07/24/22 22:59 06:59 14:59 Intake Total 118 360 Output Total 300 200 250 Balance -182 -200 110 Intake: Oral 118 360 Output: Urine 300 200 250 Other: Voiding Method Urinal Urinal # Voids 2 1 PHYSICAL EXAMINATION: This is a 72-year-old female in no apparent distress at the time of my examination. VITAL SIGNS: Blood pressure 123/73, heart rate 72, respirations 20, temp 97.6F. Patient is 98 % on where. HEENT: Head is atraumatic, normocephalic. Pupils are equal, round. Sclerae anicteric. Conjunctivae are clear. Mucous membranes of the mouth are moist. Neck is supple. There is no elevated jugular venous pressure. No carotid bruit is h eard. CHEST EXAMINATION: Clear to auscultation bilaterally. No wheezes rales or rhonchi. Respirations even and nonlabored. HEART EXAMINATION: Heart regular, positive S1 and S2. No S3. No S4. With a systolic murmur. ABDOMEN: Soft, nontender. Bowel sounds are heard. No organomegaly noted. EXTREMITIES: 1+ peripheral pulses with mild to moderate evidence of peripheral edema and chronic skin changes. NEUROLOGIC EXAMINATION: Patient is awake, alert and oriented x3. Results 07/24/22 03:43 07/24/22 03:43 Cardiac Enzymes 07/24/22 Range/Units 03:43 AST 43 H (14-35) U/L CBC 07/24/22 Range/Units 03:43 WBC 5.68 (4.50-10.00) X 10*3/uL RBC 4.56 (4.40-5.60) X 10*6/uL Hgb 13.9 (13.0-17.0) g/dL Hct 44.1 (39.6-50.0) % Plt Count 163 (140-440) X 10*3/uL Comprehensive Metabolic Panel 07/24/22 Range/Units 03:43 Sodium 141 (135-145) mmol/L Potassium 4.4 (3.5-5.5) mmol/L Chloride 99 (96-109) mmol/L Carbon Dioxide 31.6 H (20.0-27.5) mmol/L BUN 34.9 H (9.0-27.0) mg/dL Creatinine 1.7 H (0.6-1.5) mg/dL Glucose 64 L (70-110) mg/dL Calcium 8.9 (8.7-10.3) mg/dL AST 43 H (14-35) U/L ALT 45 (10-49) U/L Alkaline Phosphatase 584 H (41-126) U/L Total Protein 6.1 L (6.2-8.2) g/dL Albumin 3.2 L (3.8-4.9) g/dL Current Medications Generic Name Dose Route Start Last Admin Trade Name Freq PRN Reason Stop Dose Admin Albuterol Sulfate 2.5 mg 07/23/22 10:05 Albuterol Nebulized 2.5 Mg/3 Ml INHALATION RT-Q6H PRN Shortness Of Breath Allopurinol 300 mg 07/24/22 09:00 07/24/22 08:28 Allopurinol 300 Mg Tab PO 300 mg DAILY JASBIR Administration Calcitriol 0.25 mcg 07/25/22 09:00 Calcitriol 0.25 Mcg Cap PO MOFR JASBIR Docusate Sodium 100 mg 07/24/22 21:00 Docusate 100 Mg Cap PO BID JASBIR Finasteride 5 mg 07/24/22 09:00 07/24/22 08:28 Finasteride 5 Mg Tab PO 5 mg DAILY JASBIR Administration Fluticasone Propionate 1 puff 07/23/22 20:00 07/24/22 08:37 Fluticasone 110 Mcg Inhaler INHALATION 1 puff RT-BID JASBIR Administration Fluticasone Propionate 1 spray 07/23/22 10:15 07/24/22 08:24 Fluticasone 50mcg/[place] Nasal 16gm EA NOSTRIL Not Given Q12HR JASBIR Ceftriaxone Sodium 2 gm/ 50 mls @ 100 mls/hr 07/24/22 00:45 07/24/22 01:45 Sodium Chloride IVPB 100 mls/hr Q24H JASBIR Administration Protocol Insulin Aspart 0 unit 07/23/22 12:30 07/24/22 12:33 Insulin Aspart (Novolog) 100 Unit/Ml Vial SQ Not Given ACHS [facility] Protocol Insulin Detemir 18 unit 07/23/22 21:00 07/23/22 20:01 Insulin Detemir (Levemir) 100 Unit/Ml Syr SQ 18 unit HS JASBIR Administration Levothyroxine Sodium 50 mcg 07/24/22 06:30 07/24/22 05:55 Levothyroxine 50 Mcg Tab PO Not Given 0630 JASBIR Metoprolol Tartrate 25 mg 07/23/22 10:15 07/24/22 08:28 Metoprolol Tartrate 25 Mg Tab PO 25 mg DAILY JASBIR Administration Nitroglycerin 0.4 mg 07/23/22 10:05 Nitroglycerin Sl Tabs 0.4 Mg Tab SUBLINGUAL Q5M PRN Chest Pain Ondansetron HCl 4 mg 07/22/22 20:01 07/24/22 10:17 Ondansetron 4 Mg/2 Ml Vial IVP 4 mg Q8HR PRN Administration Nausea And Vomiting Oxybutynin Chloride 10 mg 07/24/22 09:00 07/24/22 08:27 Oxybutynin 10 Mg Tab.Er.24 PO 10 mg DAILY JASBIR Administration Pantoprazole Sodium 40 mg 07/24/22 07:30 07/24/22 08:27 Pantoprazole 40 Mg Tablet PO 40 mg AC-BRKFST JASBIR Administration Torsemide 20 mg 07/23/22 10:15 07/24/22 08:28 Torsemide 20 Mg Tab PO 20 mg DAILY JASBIR Administration Intake and Output 07/23/22 07/24/22 07/24/22 22:59 06:59 14:59 Intake Total 118 360 Output Total 300 200 250 Balance -182 -200 110 Intake: Oral 118 360 Output: Urine 300 200 250 Other: Voiding Method Urinal Urinal # Voids 2 1 07/24/22 03:43 07/24/22 03:43 Assessment and Plan Assessment: #1 cholelithiasis, preoperative evaluation for possible cholecystectomy #2 severe ischemic cardiomyopathy #3 CAD #4 CK D #5 hypertension #6 hyperlipidemia Plan: From cardiology's perspective we will maximize the patient's medical management. Patient is high risk to undergo surgery under anesthesia and we recommend avoidance of surgery unless absolutely necessary. We will continue to follow the patient provide further recommendations accordingly. ADMISSIONS COORDINATOR note has been reviewed, I agree with a documented findings and plan of care. Patient was seen and examined.
--- NOTE | 2022-07-24 15:32 | P.PN ---
Subjective Progress Note Date: 07/24/22 Principal diagnosis: Right leg wound cellulitis and possible cholecystitis Patient is a 72-year-old male sent to the ER for evaluation of abnormal liver enzymes concerning for cholecystitis in this patient did have symptoms of nausea and vomiting with abnormal HIDA scan, patient also have a chronic lower extremity swelling in the wound to the right anterior leg concer shereen for possible cellulitis. on today's evaluation that is 07/24/2022, the patient denies having any fever or any chills, currently breathing comfortably on room air denies any chest pain or shortness of breath or cough has been coming of some nausea but no vomiting no abdominal pain is still have sided lower extremity minimal drainage from the right anterior leg wound Objective - Vital Signs Vital signs: Vital Signs Temp 97.7 F 07/24/22 13:17 Pulse 82 07/24/22 13:17 Resp 18 07/24/22 13:17 BP 105/66 07/24/22 13:17 Pulse Ox 99 07/24/22 13:17 FiO2 Intake & Output 07/23/22 07/24/22 07/24/22 18:59 06:59 18:59 Intake Total 236 360 Output Total 500 500 250 Balance -264 -500 110 Intake: Oral 236 360 Output: Urine 500 500 250 Other: Voiding Method Urinal Urinal # Voids 3 2 1 - Exam GENERAL DESCRIPTION: An elderly male lying in bed in no distress RESPIRATORY SYSTEM: Unlabored breathing , decreased breath sounds at bases HEART: S1 S2 regular rate and rhythm , ABDOMEN: Soft , no tenderness EXTREMITIES: Diffuse swelling to bilateral lower extremity with a small wound to the right anterior leg minimal drainage - Labs CBC & Chem 7: 07/24/22 03:43 07/24/22 03:43 Labs: Abnormal Lab Results - Last 24 Hours (Table) 07/23/22 07/23/22 07/24/22 Range/Units 17:30 19:48 03:43 MCHC 31.5 L (32.0-37.0) g/dL RDW 18.6 H (11.5-14.5) % Carbon Dioxide (20.0-27.5) mmol/L BUN (9.0-27.0) mg/dL Creatinine (0.6-1.5) mg/dL Est GFR (CKD-EPI)AfAm (60.0-200.0) Est GFR (CKD-EPI)NonAf (60.0-200.0) BUN/Creatinine Ratio (12.00-20.00) Ratio Glucose (70-110) mg/dL POC Glucose (mg/dL) 121 H 167 H (70-110) mg/dL Magnesium (1.5-2.4) mg/dL AST (14-35) U/L Alkaline Phosphatase (41-126) U/L Total Protein (6.2-8.2) g/dL Albumin (3.8-4.9) g/dL Albumin/Globulin Ratio (1.60-3.17) g/dL 07/24/22 07/24/22 07/24/22 Range/Units 03:43 07:00 07:25 MCHC (32.0-37.0) g/dL RDW (11.5-14.5) % Carbon Dioxide 31.6 H (20.0-27.5) mmol/L BUN 34.9 H (9.0-27.0) mg/dL Creatinine 1.7 H (0.6-1.5) mg/dL Est GFR (CKD-EPI)AfAm 45.4 L (60.0-200.0) Est GFR (CKD-EPI)NonAf 39.1 L (60.0-200.0) BUN/Creatinine Ratio 20.53 H (12.00-20.00) Ratio Glucose 64 L (70-110) mg/dL POC Glucose (mg/dL) 55 L 57 L (70-110) mg/dL Magnesium 2.5 H (1.5-2.4) mg/dL AST 43 H (14-35) U/L Alkaline Phosphatase 584 H (41-126) U/L Total Protein 6.1 L (6.2-8.2) g/dL Albumin 3.2 L (3.8-4.9) g/dL Albumin/Globulin Ratio 1.10 L (1.60-3.17) g/dL Microbiology - Last 24 Hours (Table) 07/22/22 20:07 Blood Culture - Preliminary Blood No Growth after 24 hours 07/22/22 20:07 Blood Culture - Preliminary Blood No Growth after 24 hours Assessment and Plan (1) Cholelithiasis Current Visit: Yes Status: Acute Code(s): K80.20 - CALCULUS OF GALLBLADDER W/O CHOLECYSTITIS W/O OBSTRUCTION SNOMED Code(s): 006045284 (2) Elevated LFTs Current Visit: Yes Status: Acute Code(s): R79.89 - OTHER SPECIFIED ABNORMAL FINDINGS OF BLOOD CHEMISTRY SNOMED Code(s): 209951067 (3) Non-pressure chronic ulcer of other part of right foot with fat layer exposed Current Visit: No Status: Acute Code(s): L97.512 - NON-PRS CHRONIC ULCER OTH PRT RIGHT FOOT W FAT LAYER EXPOSED SNOMED Code(s): 324475401 Plan: 1patient presented to hospital with nausea decreased appetite and elevated liver enzymes patient did have abnormal ultrasound of the gallbladder suspicious for acute on chronic cholecystitis with HIDA scan currently pending, patient also have a bilateral lower extremity mild cellulitis and a wound on the right anterior lower leg. 2penicillin allergy however the patient has tolerated cephalosporins in the past without any problem. 3patient to continue with Rocephin 2 g daily 4local wound care to the right anterior leg wound with a dry Aquacel silver dressing followed by Ishan wrap to be change every 48 hour. Time with Patient: Less than 30
[2022-07-24 16:22] LABS: Glucose,Whole Blood 133 mg/dL (70-110)
[2022-07-24 20:02] LABS: Glucose,Whole Blood 204 mg/dL (70-110)
[2022-07-24] MEDS: DOCUSATE 100 MG CAP PO SCH (20:19)
[2022-07-24] MEDS: INSULIN DETEMIR (LEVEMIR) 100 UNIT/ML SYR SQ SCH (20:21)
[2022-07-25] MEDS: LEVOTHYROXINE 50 MCG TAB PO SCH (05:31)
[2022-07-25] MEDS: FLUTICASONE 110 MCG INHALER INHALATION SCH ×2 (07:18→19:38)
[2022-07-25 07:30] LABS: Glucose,Whole Blood 83 mg/dL (70-110)
[2022-07-25] MEDS: INSULIN ASPART (NovoLOG) 100 UNIT/ML VIAL SQ SCH ×4 (08:47→20:22)
[2022-07-25] MEDS: ONDANSETRON 4 MG/2 ML VIAL IVP PRN (08:49)
[2022-07-25 08:55] LABS: HCT 43.4 % (39.6-50.0); HGB 13.8 g/dL (13.0-17.0); MCH 30.3 pg (27.0-32.0); MCHC 31.8 g/dL (32.0-37.0); MCV 95.2 fL (80.0-97.0); Mean Platelet Volume 11.5 fL (9.5-12.2); NRBC Per 100 WBC 0 /100 WBCS (0.0-0.0); Platelet Count 171 X 10*3/uL (140-440); RBC 4.56 X 10*6/uL (4.40-5.60); RDW 18.8 % (11.5-14.5); WBC 6.82 X 10*3/uL (4.50-10.00)
[2022-07-25 08:59] LABS: African American GFR (CKD) 52.8 (60.0-200.0); Albumin 3.4 g/dL (3.8-4.9); Albumin/Globulin Ratio 1.1 (1.60-3.17); Anion Gap 10.4 mmol/L (10.00-18.00); BUN/Creat Ratio 20.53 Ratio (12.00-20.00); Blood Urea Nitrogen 30.8 mg/dL (9.0-27.0); Calcium 8.7 mg/dL (8.7-10.3); Carbon Dioxide 33.6 mmol/L (20.0-27.5); Globulin 3.1 g/dL (1.6-3.3); Non-African American GFR(CKD) 45.5 (60.0-200.0); Potassium 3.9 mmol/L (3.5-5.5); Total Bilirubin 1.2 mg/dL (0.30-1.20); Total Protein 6.5 g/dL (6.2-8.2)
--- NOTE | 2022-07-25 10:16 | P.PN ---
Subjective Progress Note Date: 07/25/22 HISTORY OF PRESENT ILLNESS: This is a pleasant 72-year-old gentleman with a past medical history of CAD, permanent atrial fibrillation, chronic lower extremity edema, lymphoma, hype rtension, hyperlipidemia, chronic kidney disease, cardiac catheterization for very 2020 revealed intermediate to severe disease involving the proximal LAD with calcified tubular lesion appearing to be in range of 60% at that time medical management was recommended. He's been hospitalized recently and echocardiogram at that time showed severely impaired LV systolic function with an ejection fraction of 25-30%, severe right ventricular dilatation, moderate pulmonary hypertension, [id number] aortic regurgitation, moderate mitral regurgitation and moderate tricuspid regurgitation. Following his most recent admission he was discharged to [facility] and actually had a hospice consult. Had not been doing well. He was advised to come to the emergency department after recent labs showed elevated LFTs. We been asked to see the patient in consultation for preop clearance for possible cholecystectomy. Imaging studies do show cholelithiasis but there is no evidence of acute cholecystitis. The patient has multiple complaints including weakness, lethargy, poor taste in his mouth and nausea. He's been seen and evaluated by surgery who believes he needs further GI evaluation for other causes of his symptoms but patient and spouse present no seem to be fixated on the gallbladder has been the cause of the symptoms were asked to see the patient the patient for risk stratification. Labs today showed BUN 34.9, creatinine 1.7, total bilirubin 1.2, AST 43, ALT 45 and alkaline phosphatase of 584. There has been some improvement in LFTs since admission. 07/25/2022 Patient examined this morning. He is sitting up in the chair. Patient denies chest pain or pressure. He reports significant nausea and states he has not been able to eat much breakfast this morning. General surgery is following. HIDA normal gall bladder function. PHYSICAL EXAM: VITAL SIGNS: Reviewed. GENERAL: Well-developed in no acute distress. NECK: Supple. No JVD or thyromegaly LUNGS: Respirations even and unlabored. Lungs essentially clear to auscultation bilaterally. HEART: Regular rate and rhythm. S1 and S2 heard. Systolic murmur noted. EXTREMITIES: Normal range of motion. No clubbing or cyanosis. Peripheral pulses intact. + cool extremities. 1-2+ bilateral lower extremity edema with chronic skin discoloration. ASSESSMENT: Cholelithiasis Nausea Severe ischemic cardiomyopathy Coronary artery disease Chronic kidney disease Hypertension Hyperlipidemia Possible hepatic congestion Acute on chronic systolic heart failure, cool extremities which can be seen with end stage heart failure PLAN: Continue current cardiac medications Check BNP Begin Bumex 2mg IVP Q12 hours and monitor response. Some of nausea may be related to hepatic congestion and heart failure. Gen. surgery following. Await further input Patient is high risk to undergo surgical intervention from a cardiac standpoint Nurse practitioner note has been reviewed by physician. Signing provider agrees with the documented findings, assessment, and plan of care. Objective - Vital Signs Vital signs: Vital Signs Temp 97.8 F 07/25/22 07:00 Pulse 82 07/25/22 08:00 Resp 16 07/25/22 08:00 BP 109/70 07/25/22 07:00 Pulse Ox 96 07/25/22 07:00 FiO2 Intake & Output 07/24/22 07/25/22 07/25/22 18:59 06:59 18:59 Intake Total 478 Output Total 250 325 300 Balance 228 -325 -300 Intake: Oral 478 Output: Urine 250 325 300 Other: Voiding Method Urinal Urinal # Voids 1 2 # Bowel Movements 0 - Labs CBC & Chem 7: 07/25/22 06:16 07/25/22 06:16 Labs: Abnormal Lab Results - Last 24 Hours (Table) 07/24/22 07/24/22 07/25/22 Range/Units 16:21 20:01 06:16 MCHC 31.8 L (32.0-37.0) g/dL RDW 18.8 H (11.5-14.5) % Carbon Dioxide (20.0-27.5) mmol/L BUN (9.0-27.0) mg/dL Est GFR (CKD-EPI)AfAm (60.0-200.0) Est GFR (CKD-EPI)NonAf (60.0-200.0) BUN/Creatinine Ratio (12.00-20.00) Ratio POC Glucose (mg/dL) 133 H 204 H (70-110) mg/dL AST (14-35) U/L Alkaline Phosphatase (41-126) U/L Albumin (3.8-4.9) g/dL Albumin/Globulin Ratio (1.60-3.17) g/dL 07/25/22 Range/Units 06:16 MCHC (32.0-37.0) g/dL RDW (11.5-14.5) % Carbon Dioxide 33.6 H (20.0-27.5) mmol/L BUN 30.8 H (9.0-27.0) mg/dL Est GFR (CKD-EPI)AfAm 52.8 L (60.0-200.0) Est GFR (CKD-EPI)NonAf 45.5 L (60.0-200.0) BUN/Creatinine Ratio 20.53 H (12.00-20.00) Ratio POC Glucose (mg/dL) (70-110) mg/dL AST 65 H (14-35) U/L Alkaline Phosphatase 634 H (41-126) U/L Albumin 3.4 L (3.8-4.9) g/dL Albumin/Globulin Ratio 1.10 L (1.60-3.17) g/dL Microbiology - Last 24 Hours (Table) 07/22/22 20:07 Blood Culture - Preliminary Blood No Growth after 48 hours 07/22/22 20:07 Blood Culture - Preliminary Blood No Growth after 48 hours
[2022-07-25 11:44] LABS: Glucose,Whole Blood 73 mg/dL (70-110)
[2022-07-25] MEDS: DOCUSATE 100 MG CAP PO SCH ×2 (11:47→20:23)
[2022-07-25] MEDS: METOPROLOL TARTRATE 25 MG TAB PO SCH (11:48)
[2022-07-25] MEDS: PANTOPRAZOLE 40 MG TABLET PO SCH (11:48)
[2022-07-25] MEDS: OXYBUTYNIN 10 MG TAB.ER.24 PO SCH (11:48)
[2022-07-25] MEDS: FLUTICASONE 50MCG/SPRAY NASAL 16GM EA NOSTRIL SCH ×2 (11:48→20:23)
[2022-07-25] MEDS: allopurinoL 300 MG TAB PO SCH (11:48)
[2022-07-25] MEDS: TORSEMIDE 20 MG TAB PO SCH (11:48)
[2022-07-25] MEDS: FINASTERIDE 5 MG TAB PO SCH (11:48)
[2022-07-25] MEDS: BUMETANIDE 0.25 MG/ML 10 ML VIAL IV SCH ×2 (13:50→22:55)
[2022-07-25] MEDS ORDERED: BUMETANIDE 0.25 MG/ML 10 ML VIAL IV ONE (13:50)
[2022-07-25] MEDS: PROCHLORPERAZINE INJ 10 MG/2 ML VIAL IVP PRN (14:26)
--- NOTE | 2022-07-25 15:15 | P.PN ---
Progress Note - Text Progress Note Date: 07/25/22 S: Pt awake alert, continues to c/o nausea not well treated w Zofran, also notes some reflux Sx's no pain O: 97.8 82 109/70 96% on RA Skin turgor poor Chest CTA COR RRR Abdomen benign, non-tender K 3.9 Hbg 13.8 wbc 6.8 plt 171 TBili 1.2 ALT 37 Alk Phos 634 (little change from yesterday) A/P 72 yo male w fraility, severe CAD/Cardiomyopathy CKD , DM HTN, HLD Persistent nausea w assoc decreased po intake and Wt loss Elevated LFT, cholelithiasis w relatively nl HIDA Recomended to pt and spouse a comprehensive GI eval, doubt cholecystitis as etiology pts Sx (? hepatic congestion) (appreciate cardiology input) Covering for Drs. Valiente and Evan will discuss w them. Compazine substituted for Zofran
[2022-07-25 17:06] LABS: Glucose,Whole Blood 132 mg/dL (70-110)
[2022-07-25 19:59] LABS: Glucose,Whole Blood 172 mg/dL (70-110)
[2022-07-25] MEDS: INSULIN DETEMIR (LEVEMIR) 100 UNIT/ML SYR SQ SCH (20:23)
--- NOTE | 2022-07-26 00:12 | P.PN ---
Subjective Progress Note Date: 07/25/22 Patient was on his 72-year-old male with known history of heart disease with extremely low ejection fraction of around 25% was instructed to come to Hospital because of elevated liver enzymes and elevated alkaline phosphatase and patient is found to have possible obstructing stone. Patient has minimally elevated bilirubin of around 1.8 and AST and ALT are elevated along with alkaline phosphatase. Ultrasound showed gallstones with some possible wall thickening did not show dilated common bile duct bile duct stone. Neurosurgery was consulted and Gen. surgery evaluated the patient. Patient does have chronic kidney disease stage III with baseline creatinine of around 1.6-1.8 and patient creatinine is at his baseline at this time. Patient denied any nausea vomiting denied any significant abdominal pain. Patient also has bilateral lower extremity chronic venous stasis and the couple ulcerations in the bilateral figueredo area, for which infectious disease was consulted although it says patient is ALLERGIC to penicillin and patient was able to tolerate Cefzil in the past patient doesn't have any MRSA history infections disease evaluated the patient and patient will be started on ceftezolin 07/24/2022 Patient can use to have severe nausea it to be evaluated by general surgery today patient remains nothing by mouth. Patient does have cholelithiasis. Patient's liver enzymes have come down bilirubin is 1.2 today creatinine remained stable at around 1.6-1.7 patient is not in heart failure exacerbation at this time 07/25/2022 Patient is seen in follow up this morning and continues to report nausea that is not being relieved. NPO for possible cholecystectomy with general surgery and cardiology followiing. Patient has been explained the risks vs. benefits of surgery and is intermediate risk although is understandable and continues to be willing to proceed with surgery. Awaiting cardiology clearance. Patient takes bumex oral at home and being switched to IV per cardiology and BNP ordered. Patient continues on IV ceftriaxone and local wound care for the lower extremity leg ulcers. Eliquis is currently on hold in the event surgery occurs. Recommend repeat am labs and symptomatic treatment of the nausea and abdominal discomfort. Patient is afebrile and denies chest pain or shortness of breath. Review of systems: Constitutional: Denied any fatigue denied any fever. Cardio vascular: denied any chest pain, palpitations Gastrointestinal: reports continued nausea with abdominal pain Pulmonary: Denied any shortness of breath cough Neurologic denied any new focal deficits All inpatient medications were reviewed and appropriate changes in these medications as dictated in the interval history and assessment and plan. Active Medications Albuterol Sulfate (Albuterol Nebulized 2.5 Mg/3 Ml) 2.5 mg INHALATION RT-Q6H PRN PRN Reason: Shortness Of Breath Allopurinol (Allopurinol 300 Mg Tab) 300 mg PO DAILY [facility] Last Admin: 07/24/22 08:28 Dose: 300 mg Calcitriol (Calcitriol 0.25 Mcg Cap) 0.25 mcg PO MOFR [facility] Docusate Sodium (Docusate 100 Mg Cap) 100 mg PO BID [facility] Last Admin: 07/24/22 20:19 Dose: Not Given Finasteride (Finasteride 5 Mg Tab) 5 mg PO DAILY [facility] Last Admin: 07/24/22 08:28 Dose: 5 mg Fluticasone Propionate (Fluticasone 110 Mcg Inhaler) 1 puff INHALATION RT-BID [facility] Last Admin: 07/25/22 07:18 Dose: 1 puff Fluticasone Propionate (Fluticasone 50mcg/[place] Nasal 16gm) 1 spray EA NOSTRIL Q12HR [facility] Last Admin: 07/24/22 20:20 Dose: Not Given Ceftriaxone Sodium 2 gm/ (Sodium Chloride) 50 mls @ 100 mls/hr IVPB Q24H [facility]; Protocol Last Admin: 07/25/22 00:35 Dose: 100 mls/hr Insulin Aspart (Insulin Aspart (Novolog) 100 Unit/Ml Vial) 0 unit SQ ACHS [facility]; Protocol Last Admin: 07/25/22 08:47 Dose: Not Given Insulin Detemir (Insulin Detemir (Levemir) 100 Unit/Ml Syr) 18 unit SQ HS [facility] Last Admin: 07/24/22 20:21 Dose: 18 unit Levothyroxine Sodium (Levothyroxine 50 Mcg Tab) 50 mcg PO 0630 [facility] Last Admin: 07/25/22 05:31 Dose: 50 mcg Metoprolol Tartrate (Metoprolol Tartrate 25 Mg Tab) 25 mg PO DAILY [facility] Last Admin: 07/24/22 08:28 Dose: 25 mg Nitroglycerin (Nitroglycerin Sl Tabs 0.4 Mg Tab) 0.4 mg SUBLINGUAL Q5M PRN PRN Reason: Chest Pain Ondansetron HCl (Ondansetron 4 Mg/2 Ml Vial) 4 mg IVP Q8HR PRN PRN Reason: Nausea And Vomiting Last Admin: 07/25/22 08:49 Dose: 4 mg Oxybutynin Chloride (Oxybutynin 10 Mg Tab.Er.24) 10 mg PO DAILY [facility] Last Admin: 07/24/22 08:27 Dose: 10 mg Pantoprazole Sodium (Pantoprazole 40 Mg Tablet) 40 mg PO AC-BRKFST [facility] Last Admin: 07/24/22 08:27 Dose: 40 mg Torsemide (Torsemide 20 Mg Tab) 20 mg PO DAILY [facility] Last Admin: 07/24/22 08:28 Dose: 20 mg PHYSICAL EXAMINATION: GENERAL: The patient is alert and oriented x3, not in any acute distress. Well developed, well nourished. HEENT: Pupils are round and equally reacting to light. EOMI. may be mild scleral icterus. No conjunctival pallor. Normocephalic, atraumatic. No pharyngeal erythema. No thyromegaly. CARDIOVASCULAR: S1 and S2 present. No murmurs, rubs, or gallops. PULMONARY: Chest is clear to auscultation, no wheezing or crackles. ABDOMEN: Soft, nontender, nondistended, normoactive bowel sounds. No palpable organomegaly. MUSCULOSKELETAL: No joint swelling or deformity. EXTREMITIES: No cyanosis, clubbing, or pedal edema. NEUROLOGICAL: Gross neurological examination did not reveal any focal deficits. SKIN: Bilateral lower extremity venous stasis with a couple ulcerations. Assessment: -Symptomatic cholelithiasis: General surgery is following the patient liver enzymes have come down possibly of choledocholithiasis is low. Awaiting cardiology clearance. Patient is intermediate operative risk considering his significant heart failure history,this was discussed with the patient and family and they are agreeable for surgery with that risk. -Bilateral lower extremity venous stasis ulcers for which patient was started on cefazolin with local wound care. -Congestive failure chronic systolic dysfunction EF of around 25-30% patient is not in heart failure exacerbation at this time -Chronic kidney disease stage III patient creatinine is at his baseline -type 2 diabetes mellitus patient is presently nothing by mouth because of which will hold off on other diabetic medications except for sliding scale insulin and we'll cut down the long-acting insulin to 15 units from 25 units will monitor the blood sugars -History of paroxysmal atrial fibrillation -Coronary artery disease with stents in the past -Hyperlipidemia -Hypertension -Peripheral vascular disease -Chronic venous stasis dermatosis of both legs -DVT prophylaxis: Will resume on anticoagulation when appropriate, SCDs Plan: Recommend to continue with current medications with cardiology and general surgery following Patient awaiting cardiac clearance for possible cholecystectomy Patient was on oral bumex and BNP being obtained and being placed on IV bumex per cardiology Patient continues with nausea and compazine being added Recommend to monitor blood sugars achs and continue with current medication regimen Recommend repeat am labs Recommend to resume anticoagulant once decision is made of possible surgical intervention. Await surgery input with no plans for immediate surgery at this time. The impression and plan of care has been dictated by Catarina Torres, Nurse Practitioner as directed. Dr. Domenica MD I have performed a history and examination and MDM of this patient, discussed the same with the dictator, and agree with the dictator's assessment and plan as written ,documented as a scribe. Based on total visit time, I have performed more than 50% of the visit. Objective - Vital Signs Vital signs: Vital Signs Temp 97.8 F 07/25/22 07:00 Pulse 82 07/25/22 07:00 Resp 16 07/25/22 07:00 BP 109/70 07/25/22 07:00 Pulse Ox 96 07/25/22 07:00 FiO2 Intake & Output 07/24/22 07/25/22 07/25/22 18:59 06:59 18:59 Intake Total 478 Output Total 250 325 300 Balance 228 -325 -300 Intake: Oral 478 Output: Urine 250 325 300 Other: Voiding Method Urinal # Voids 1 2 # Bowel Movements 0 - Labs CBC & Chem 7: 07/25/22 06:16 07/25/22 06:16 Labs: Abnormal Lab Results - Last 24 Hours (Table) 07/24/22 07/24/22 07/24/22 Range/Units 03:43 16:21 20:01 MCHC (32.0-37.0) g/dL RDW (11.5-14.5) % Carbon Dioxide 31.6 H (20.0-27.5) mmol/L BUN 34.9 H (9.0-27.0) mg/dL Creatinine 1.7 H (0.6-1.5) mg/dL Est GFR (CKD-EPI)AfAm 45.4 L (60.0-200.0) Est GFR (CKD-EPI)NonAf 39.1 L (60.0-200.0) BUN/Creatinine Ratio 20.53 H (12.00-20.00) Ratio Glucose 64 L (70-110) mg/dL POC Glucose (mg/dL) 133 H 204 H (70-110) mg/dL Magnesium 2.5 H (1.5-2.4) mg/dL AST 43 H (14-35) U/L Alkaline Phosphatase 584 H (41-126) U/L Total Protein 6.1 L (6.2-8.2) g/dL Albumin 3.2 L (3.8-4.9) g/dL Albumin/Globulin Ratio 1.10 L (1.60-3.17) g/dL 07/25/22 07/25/22 Range/Units 06:16 06:16 MCHC 31.8 L (32.0-37.0) g/dL RDW 18.8 H (11.5-14.5) % Carbon Dioxide 33.6 H (20.0-27.5) mmol/L BUN 30.8 H (9.0-27.0) mg/dL Creatinine (0.6-1.5) mg/dL Est GFR (CKD-EPI)AfAm 52.8 L (60.0-200.0) Est GFR (CKD-EPI)NonAf 45.5 L (60.0-200.0) BUN/Creatinine Ratio 20.53 H (12.00-20.00) Ratio Glucose (70-110) mg/dL POC Glucose (mg/dL) (70-110) mg/dL Magnesium (1.5-2.4) mg/dL AST 65 H (14-35) U/L Alkaline Phosphatase 634 H (41-126) U/L Total Protein (6.2-8.2) g/dL Albumin 3.4 L (3.8-4.9) g/dL Albumin/Globulin Ratio 1.10 L (1.60-3.17) g/dL Microbiology - Last 24 Hours (Table) 07/22/22 20:07 Blood Culture - Preliminary Blood No Growth after 48 hours 07/22/22 20:07 Blood Culture - Preliminary Blood No Growth after 48 hours
[2022-07-26 02:06] LABS: Glucose,Whole Blood 105 mg/dL (70-110)
[2022-07-26] MEDS: LEVOTHYROXINE 50 MCG TAB PO SCH (05:16)
[2022-07-26 06:41] LABS: ALT 21 U/L (4-49); AST 50 U/L (17-59); African American GFR (CKD) 54 (>60 ml/min/1.73 sqM); Albumin 3.4 g/dL (3.5-5.0); Albumin/Globulin Ratio 0.9; Alkaline Phosphatase 604 U/L (38-126); Anion Gap 10 mmol/L; Blood Urea Nitrogen 32 mg/dL (9-20); Calcium 8.2 mg/dL (8.4-10.2); Carbon Dioxide 33 mmol/L (22-30); Chloride 94 mmol/L (98-107); Globulin 3.7 g/dL; Glucose 76 mg/dL (74-99); Non-African American GFR(CKD) 47 (>60 ml/min/1.73 sqM); Potassium 3.3 mmol/L (3.5-5.1); Sodium 137 mmol/L (137-145); Total Bilirubin 1.3 mg/dL (0.2-1.3); Total Protein 7.1 g/dL (6.3-8.2)
[2022-07-26 07:17] LABS: Glucose,Whole Blood 78 mg/dL (70-110)
[2022-07-26] MEDS: PROCHLORPERAZINE INJ 10 MG/2 ML VIAL IVP PRN (08:05)
[2022-07-26] MEDS: INSULIN ASPART (NovoLOG) 100 UNIT/ML VIAL SQ SCH ×4 (08:05→21:20)
[2022-07-26] MEDS: OXYBUTYNIN 10 MG TAB.ER.24 PO SCH (08:06)
[2022-07-26] MEDS: allopurinoL 300 MG TAB PO SCH (08:06)
[2022-07-26] MEDS: FLUTICASONE 50MCG/SPRAY NASAL 16GM EA NOSTRIL SCH ×2 (08:06→08:08)
[2022-07-26] MEDS: PANTOPRAZOLE 40 MG TABLET PO SCH (08:06)
[2022-07-26] MEDS: FINASTERIDE 5 MG TAB PO SCH (08:07)
[2022-07-26] MEDS: DOCUSATE 100 MG CAP PO SCH ×2 (08:07→19:32)
[2022-07-26] MEDS: METOPROLOL TARTRATE 25 MG TAB PO SCH (08:07)
[2022-07-26] MEDS: FLUTICASONE 110 MCG INHALER INHALATION SCH ×2 (08:40→20:12)
[2022-07-26] MEDS ORDERED: POTASSIUM CHLORIDE ER 20 MEQ TAB.ER PO STA (09:31)
--- NOTE | 2022-07-26 10:48 | P.PN ---
Subjective Progress Note Date: 07/26/22 HISTORY OF PRESENT ILLNESS: This is a pleasant 72-year-old gentleman with a past medical history of CAD, permanent atrial fibrillation, chronic lower extremity edema, lymphoma, hype rtension, hyperlipidemia, chronic kidney disease, cardiac catheterization for very 2020 revealed intermediate to severe disease involving the proximal LAD with calcified tubular lesion appearing to be in range of 60% at that time medical management was recommended. He's been hospitalized recently and echocardiogram at that time showed severely impaired LV systolic function with an ejection fraction of 25-30%, severe right ventricular dilatation, moderate pulmonary hypertension, [id number] aortic regurgitation, moderate mitral regurgitation and moderate tricuspid regurgitation. Following his most recent admission he was discharged to [facility] and actually had a hospice consult. Had not been doing well. He was advised to come to the emergency department after recent labs showed elevated LFTs. We been asked to see the patient in consultation for preop clearance for possible cholecystectomy. Imaging studies do show cholelithiasis but there is no evidence of acute cholecystitis. The patient has multiple complaints including weakness, lethargy, poor taste in his mouth and nausea. He's been seen and evaluated by surgery who believes he needs further GI evaluation for other causes of his symptoms but patient and spouse present no seem to be fixated on the gallbladder has been the cause of the symptoms were asked to see the patient the patient for risk stratification. Labs today showed BUN 34.9, creatinine 1.7, total bilirubin 1.2, AST 43, ALT 45 and alkaline phosphatase of 584. There has been some improvement in LFTs since admission. 07/25/2022 Patient examined this morning. He is sitting up in the chair. Patient denies chest pain or pressure. He reports significant nausea and states he has not been able to eat much breakfast this morning. General surgery is following. 07/26/2022 Patient examined this morning. He continues to report nausea and decreased appetite. General surgery is following. He remains on Bumex 2mg IVP Q12 hours. He states he has not been urinating very much. BNP from yesterday 8240. PHYSICAL EXAM: VITAL SIGNS: Reviewed. GENERAL: Well-developed in no acute distress. NECK: Supple. No JVD or thyromegaly LUNGS: Respirations even and unlabored. Lungs essentially clear to auscultation bilaterally. HEART: Regular rate and rhythm. S1 and S2 heard. Systolic murmur noted. EXTREMITIES: Normal range of motion. No clubbing or cyanosis. Peripheral pulses intact. 1-2+ bilateral lower extremity edema with chronic skin discoloration. ASSESSMENT: Cholelithiasis Nausea Severe ischemic cardiomyopathy Coronary artery disease Chronic kidney disease Hypertension Hyperlipidemia Possible hepatic congestion with concern for end stage heart failure Acute on chronic systolic heart failure, cool extremities which can be seen with end stage heart failure PLAN: Continue current cardiac medications Continue Bumex 2mg IVP Q12 hours Gen. surgery following. Await further input Patient is high risk to undergo surgical intervention from a cardiac standpoint Nurse practitioner note has been reviewed by physician. Signing provider agrees with the documented findings, assessment, and plan of care. Objective - Vital Signs Vital signs: Vital Signs Temp 98.2 F 07/26/22 07:34 Pulse 76 07/26/22 08:00 Resp 18 07/26/22 08:00 BP 105/69 07/26/22 07:34 Pulse Ox 99 07/26/22 07:34 FiO2 Intake & Output 07/25/22 07/26/22 07/26/22 18:59 06:59 18:59 Output Total 600 400 250 Balance -600 -400 -250 Output: Urine 600 400 250 Other: Voiding Method Urinal Urinal Urinal - Labs CBC & Chem 7: 07/25/22 06:16 07/26/22 06:01 Labs: Abnormal Lab Results - Last 24 Hours (Table) 07/25/22 07/25/22 07/26/22 Range/Units 17:04 19:58 06:01 Potassium 3.3 L (3.5-5.1) mmol/L Chloride 94 L (98-107) mmol/L Carbon Dioxide 33 H (22-30) mmol/L BUN 32 H (9-20) mg/dL Creatinine 1.47 H (0.66-1.25) mg/dL POC Glucose (mg/dL) 132 H 172 H (70-110) mg/dL Calcium 8.2 L (8.4-10.2) mg/dL Alkaline Phosphatase 604 H (38-126) U/L Albumin 3.4 L (3.5-5.0) g/dL Microbiology - Last 24 Hours (Table) 07/22/22 20:07 Blood Culture - Preliminary Blood No Growth after 72 hours 07/22/22 20:07 Blood Culture - Preliminary Blood No Growth after 72 hours
[2022-07-26 11:44] LABS: Glucose,Whole Blood 124 mg/dL (70-110)
[2022-07-26] MEDS: BUMETANIDE 0.25 MG/ML 10 ML VIAL IV SCH ×2 (11:54→23:03)
--- NOTE | 2022-07-26 14:25 | P.PN ---
Progress Note - Text Progress Note Date: 07/26/22 Patient and his are trying to decide between palliative care and hospice. Family meeting set up for 07/27/22 at 11:00. Carlene Zimmer [facility] Spectralink [phone] Email: [email or web address]
--- NOTE | 2022-07-26 15:45 | P.PN ---
Subjective Progress Note Date: 07/26/22 Patient was on his 72-year-old male with known history of heart disease with extremely low ejection fraction of around 25% was instructed to come to Hospital because of elevated liver enzymes and elevated alkaline phosphatase and patient is found to have possible obstructing stone. Patient has minimally elevated bilirubin of around 1.8 and AST and ALT are elevated along with alkaline phosphatase. Ultrasound showed gallstones with some possible wall thickening did not show dilated common bile duct bile duct stone. Neurosurgery was consulted and Gen. surgery evaluated the patient. Patient does have chronic kidney disease stage III with baseline creatinine of around 1.6-1.8 and patient creatinine is at his baseline at this time. Patient denied any nausea vomiting denied any significant abdominal pain. Patient also has bilateral lower extremity chronic venous stasis and the couple ulcerations in the bilateral figueredo area, for which infectious disease was consulted although it says patient is ALLERGIC to penicillin and patient was able to tolerate Cefzil in the past patient doesn't have any MRSA history infections disease evaluated the patient and patient will be started on ceftezolin 07/24/2022 Patient can use to have severe nausea it to be evaluated by general surgery today patient remains nothing by mouth. Patient does have cholelithiasis. Patient's liver enzymes have come down bilirubin is 1.2 today creatinine remained stable at around 1.6-1.7 patient is not in heart failure exacerbation at this time 07/25/2022 Patient is seen in follow up this morning and continues to report nausea that is not being relieved. NPO for possible cholecystectomy with general surgery and cardiology followiing. Patient has been explained the risks vs. benefits of surgery and is intermediate risk although is understandable and continues to be willing to proceed with surgery. Awaiting cardiology clearance. Patient takes bumex oral at home and being switched to IV per cardiology and BNP ordered. Patient continues on IV ceftriaxone and local wound care for the lower extremity leg ulcers. Eliquis is currently on hold in the event surgery occurs. Recommend repeat am labs and symptomatic treatment of the nausea and abdominal discomfort. Patient is afebrile and denies chest pain or shortness of breath. 07/26/2022 Patient seen and evaluated in follow-up this morning continues to feel about the same. Patient reports some mild relief and nausea as he ate a half a bowl of cereal and did not vomit. Patient is maintained on IV Bumex with cardiology following and continues to have decreased oral intake along with decreased urine output. Kidney functions improving although creatinine continues to be elevated. Patient is afebrile and denies chest pain or shortness of breath. G eneral surgery following with no plans for surgical intervention. Patient and at the bedside discussing possible palliative versus hospice and palliative care [facility] has been consulted and pending. Overall prognosis remains guarded. Recommend physical therapy to continue evaluating and working with daily with increased activity encouraged. Encouraged oral intake and continue with antibiotics as needed. Review of systems: Constitutional: Denied any fatigue denied any fever. Cardio vascular: denied any chest pain, palpitations Gastrointestinal: reports continued nausea with abdominal pain , poor oral intake Pulmonary: Denied any shortness of breath cough Neurologic denied any new focal deficits, reports continued weakness All inpatient medications were reviewed and appropriate changes in these medications as dictated in the interval history and assessment and plan. Active Medications Albuterol Sulfate (Albuterol Nebulized 2.5 Mg/3 Ml) 2.5 mg INHALATION RT-Q6H PRN PRN Reason: Shortness Of Breath Allopurinol (Allopurinol 300 Mg Tab) 300 mg PO DAILY [facility] Last Admin: 07/26/22 08:06 Dose: 300 mg Bumetanide (Bumetanide 0.25 Mg/Ml 10 Ml Vial) 2 mg IV Q12H [facility] Last Admin: 07/26/22 11:54 Dose: 2 mg Calcitriol (Calcitriol 0.25 Mcg Cap) 0.25 mcg PO MOFR [facility] Last Admin: 07/25/22 11:48 Dose: 0.25 mcg Docusate Sodium (Docusate 100 Mg Cap) 100 mg PO BID [facility] Last Admin: 07/26/22 08:07 Dose: 100 mg Finasteride (Finasteride 5 Mg Tab) 5 mg PO DAILY [facility] Last Admin: 07/26/22 08:07 Dose: 5 mg Fluticasone Propionate (Fluticasone 110 Mcg Inhaler) 1 puff INHALATION RT-BID [facility] Last Admin: 07/26/22 08:40 Dose: 1 puff Fluticasone Propionate (Fluticasone 50mcg/Fenton Nasal 16gm) 1 spray EA NOSTRIL Q12HR [facility] Last Admin: 07/26/22 08:08 Dose: 1 spray Ceftriaxone Sodium 2 gm/ (Sodium Chloride) 50 mls @ 100 mls/hr IVPB Q24H [facility]; Protocol Last Admin: 07/25/22 22:55 Dose: 100 mls/hr Insulin Aspart (Insulin Aspart (Novolog) 100 Unit/Ml Vial) 0 unit SQ ACHS [facility]; Protocol Last Admin: 07/26/22 13:38 Dose: Not Given Insulin Detemir (Insulin Detemir (Levemir) 100 Unit/Ml Syr) 18 unit SQ HS [facility] Last Admin: 07/25/22 20:23 Dose: 18 unit Levothyroxine Sodium (Levothyroxine 50 Mcg Tab) 50 mcg PO 0630 [facility] Last Admin: 07/26/22 05:16 Dose: 50 mcg Metoprolol Tartrate (Metoprolol Tartrate 25 Mg Tab) 25 mg PO DAILY [facility] Last Admin: 07/26/22 08:07 Dose: 25 mg Nitroglycerin (Nitroglycerin Sl Tabs 0.4 Mg Tab) 0.4 mg SUBLINGUAL Q5M PRN PRN Reason: Chest Pain Oxybutynin Chloride (Oxybutynin 10 Mg Tab.Er.24) 10 mg PO DAILY [facility] Last Admin: 07/26/22 08:06 Dose: 10 mg Pantoprazole Sodium (Pantoprazole 40 Mg Tablet) 40 mg PO AC-BRKFST [facility] Last Admin: 07/26/22 08:06 Dose: 40 mg Prochlorperazine Edisylate (Prochlorperazine Inj 10 Mg/2 Ml Vial) 5 mg IVP Q4HR PRN PRN Reason: Nausea And Vomiting Last Admin: 07/26/22 08:05 Dose: 5 mg PHYSICAL EXAMINATION: GENERAL: The patient is alert and oriented x3, Well developed, well nourished. Morbidly obese HEENT: Pupils are round and equally reacting to light. EOMI. may be mild scleral icterus. No conjunctival pallor. Normocephalic, atraumatic. No pharyngeal erythema. No thyromegaly. CARDIOVASCULAR: S1 and S2 present. No murmurs, rubs, or gallops. PULMONARY: Chest is clear to auscultation, no wheezing or crackles. ABDOMEN: Soft, nontender, nondistended, normoactive bowel sounds. No palpable organomegaly. MUSCULOSKELETAL: No joint swelling or deformity. EXTREMITIES: No cyanosis, clubbing, or pedal edema. Chronic lower extremity edema with venous stasis ulcers noted NEUROLOGICAL: Gross neurological examination did not reveal any focal deficits. SKIN: Bilateral lower extremity venous stasis with a couple ulcerations. Assessment: -Symptomatic cholelithiasis, general surgery following no plans for surgical intervention at this time -Bilateral lower extremity venous stasis ulcers for which patient is continued on cefazolin with local wound care. ID following -Congestive failure chronic systolic dysfunction EF of around 25-30%, acute exacerbation -Chronic kidney disease stage III patient creatinine is at his baseline -type 2 diabetes mellitus, continue with current insulin regimen and monitoring Accu-Cheks before meals and at bedtime as patient continues with poor oral intake -History of paroxysmal atrial fibrillation anticoagulation was currently on hold for possible surgery intervention -Coronary artery disease with stents in the past -Hyperlipidemia -Hypertension -Peripheral vascular disease -Chronic venous stasis dermatosis of both legs -DVT prophylaxis: Will resume on anticoagulation when appropriate, SCDs Plan: Recommend to continue with current medications with cardiology and general surgery following, no plans for surgical intervention at this time Patient was on oral bumex and BNP elevated at 8200 and being continued on IV bumex per cardiology Patient continues with nausea and compazine as needed, reports able to eat a half a bowl of cereal this morning Recommend to monitor blood sugars achs and continue with current medication regimen, monitor closely for hypoglycemia as patient is not tolerating oral intake much and family with patient requesting possible palliative versus hospice and p alliative care [facility] has been consulted and pending. Recommend to resume anticoagulant once decision is made of possible surgical intervention. Await surgery input with no plans for immediate surgery at this time. Overall prognosis remains guarded. The impression and plan of care has been dictated by Catarina Torres, Nurse Practitioner as directed. Dr. Domenica MD I have performed a history and examination and MDM of this patient, discussed the same with the dictator, and agree with the dictator's assessment and plan as written ,documented as a scribe. Based on total visit time, I have performed more than 50% of the visit. Objective - Vital Signs Vital signs: Vital Signs Temp 98.2 F 07/26/22 07:34 Pulse 76 07/26/22 07:34 Resp 18 07/26/22 07:34 BP 105/69 07/26/22 07:34 Pulse Ox 99 07/26/22 07:34 FiO2 Intake & Output 0807/26/22 07/26/22 18:59 06:59 18:59 Output Total 600 400 Balance -600 -400 Output: Urine 600 400 Other: Voiding Method Urinal Urinal - Labs CBC & Chem 7: 07/25/22 06:16 07/26/22 06:01 Labs: Abnormal Lab Results - Last 24 Hours (Table) 07/25/22 07/25/22 07/26/22 Range/Units 17:04 19:58 06:01 Potassium 3.3 L (3.5-5.1) mmol/L Chloride 94 L (98-107) mmol/L Carbon Dioxide 33 H (22-30) mmol/L BUN 32 H (9-20) mg/dL Creatinine 1.47 H (0.66-1.25) mg/dL POC Glucose (mg/dL) 132 H 172 H (70-110) mg/dL Calcium 8.2 L (8.4-10.2) mg/dL Alkaline Phosphatase 604 H (38-126) U/L Albumin 3.4 L (3.5-5.0) g/dL Microbiology - Last 24 Hours (Table) 07/22/22 20:07 Blood Culture - Preliminary Blood No Growth after 72 hours 07/22/22 20:07 Blood Culture - Preliminary Blood No Growth after 72 hours
[2022-07-26 16:44] LABS: Glucose,Whole Blood 123 mg/dL (70-110)
--- NOTE | 2022-07-26 18:43 | P.PN ---
Subjective Progress Note Date: 07/26/22 Patient is seen on rounds. He's not eating much. He says he hasn't had an appetite for many weeks. Denies abdominal pain. Complains of heartburn but no nausea or vomiting. Objective - Vital Signs Vital signs: Vital Signs Temp 97.8 F 07/26/22 14:00 Pulse 52 L 07/26/22 14:00 Resp 18 07/26/22 14:00 BP 90/63 07/26/22 14:00 Pulse Ox 98 07/26/22 14:00 FiO2 Intake & Output 07/25/22 07/26/22 07/26/22 18:59 06:59 18:59 Output Total 600 400 550 Balance -600 -400 -550 Output: Urine 600 400 550 Other: Voiding Method Urinal Urinal Urinal # Voids 2 - Constitutional General appearance: Present: cooperative, no acute distress - Gastrointestinal General gastrointestinal: Present: distended (Softly distended), normal bowel sounds. Absent: tenderness - Labs CBC & Chem 7: 07/25/22 06:16 07/26/22 06:01 Labs: Abnormal Lab Results - Last 24 Hours (Table) 07/25/22 07/26/22 07/26/22 Range/Units 19:58 06:01 11:42 Potassium 3.3 L (3.5-5.1) mmol/L Chloride 94 L (98-107) mmol/L Carbon Dioxide 33 H (22-30) mmol/L BUN 32 H (9-20) mg/dL Creatinine 1.47 H (0.66-1.25) mg/dL POC Glucose (mg/dL) 172 H 124 H (70-110) mg/dL Calcium 8.2 L (8.4-10.2) mg/dL Alkaline Phosphatase 604 H (38-126) U/L Albumin 3.4 L (3.5-5.0) g/dL 07/26/22 Range/Units 16:42 Potassium (3.5-5.1) mmol/L Chloride (98-107) mmol/L Carbon Dioxide (22-30) mmol/L BUN (9-20) mg/dL Creatinine (0.66-1.25) mg/dL POC Glucose (mg/dL) 123 H (70-110) mg/dL Calcium (8.4-10.2) mg/dL Alkaline Phosphatase (38-126) U/L Albumin (3.5-5.0) g/dL Microbiology - Last 24 Hours (Table) 07/22/22 20:07 Blood Culture - Preliminary Blood No Growth after 72 hours 07/22/22 20:07 Blood Culture - Preliminary Blood No Growth after 72 hours Assessment and Plan (1) Loss of appetite Current Visit: Yes Status: Acute Code(s): R63.0 - ANOREXIA SNOMED Code(s): 57257195 (2) Cholelithiasis Current Visit: Yes Status: Acute Code(s): K80.20 - CALCULUS OF GALLBLADDER W/O CHOLECYSTITIS W/O OBSTRUCTION SNOMED Code(s): 617647598 (3) Elevated LFTs Current Visit: Yes Status: Acute Code(s): R79.89 - OTHER SPECIFIED ABNORMAL FINDINGS OF BLOOD CHEMISTRY SNOMED Code(s): 075805305 (4) MARIALUISA (acute kidney injury) Current Visit: No Status: Acute Code(s): N17.9 - ACUTE KIDNEY FAILURE, UNSPECIFIED SNOMED Code(s): 65990776 (5) Afib Current Visit: No Status: Acute Code(s): I48.91 - UNSPECIFIED ATRIAL FIBRILLATION SNOMED Code(s): 03479844 Plan: Ultrasound did show cholelithiasis. There is no sign of common bile duct obstruction on his HIDA scan. His loss of appetite may be due to some passive congestion of the liver. I doubt laparoscopic cholecystectomy would improve his loss of appetite. Questions were encouraged and answered.
[2022-07-26 21:05] LABS: Glucose,Whole Blood 209 mg/dL (70-110)
[2022-07-26] MEDS: INSULIN DETEMIR (LEVEMIR) 100 UNIT/ML SYR SQ SCH (21:21)
[2022-07-27] MEDS: PROCHLORPERAZINE INJ 10 MG/2 ML VIAL IVP PRN (04:43)
[2022-07-27] MEDS: LEVOTHYROXINE 50 MCG TAB PO SCH (05:29)
[2022-07-27 07:04] LABS: Glucose,Whole Blood 115 mg/dL (70-110)
[2022-07-27] MEDS: FLUTICASONE 110 MCG INHALER INHALATION SCH ×2 (07:04→19:31)
[2022-07-27] MEDS: INSULIN ASPART (NovoLOG) 100 UNIT/ML VIAL SQ SCH ×4 (08:07→19:40)
--- NOTE | 2022-07-27 08:44 | P.PN ---
Subjective Progress Note Date: 07/25/22 Principal diagnosis: Right leg wound cellulitis and possible cholecystitis Patient is a 72-year-old male sent to the ER for evaluation of abnormal liver enzymes concerning for cholecystitis in this patient did have symptoms of nausea and vomiting with abnormal HIDA scan, patient also have a chronic lower extremity swelling in the wound to the right anterior leg concer shereen for possible cellulitis. on today's evaluation that is 07/25/2022, the patient remains to be afebrile, the patient is breathing comfortably on room air denies any chest pain or shortness of breath or cough has been complaining of some nausea but no vomiting no abdominal pain the patient did have minimal drainage from the right anterior leg wound Objective - Vital Signs Vital signs: Vital Signs Temp 97.8 F 07/25/22 07:00 Pulse 82 07/25/22 08:00 Resp 16 07/25/22 08:00 BP 109/70 07/25/22 07:00 Pulse Ox 96 07/25/22 07:00 FiO2 Intake & Output 07/24/22 07/25/22 07/25/22 18:59 06:59 18:59 Intake Total 478 Output Total 250 325 300 Balance 228 -325 -300 Intake: Oral 478 Output: Urine 250 325 300 Other: Voiding Method Urinal Urinal # Voids 1 2 # Bowel Movements 0 - Exam GENERAL DESCRIPTION: An elderly male lying in bed in no distress RESPIRATORY SYSTEM: Unlabored breathing , decreased breath sounds at bases HEART: S1 S2 regular rate and rhythm , ABDOMEN: Soft , no tenderness EXTREMITIES: Diffuse swelling to bilateral lower extremity with a small wound to the right anterior leg minimal drainage - Labs CBC & Chem 7: 07/25/22 06:16 07/26/22 06:01 Labs: Abnormal Lab Results - Last 24 Hours (Table) 07/24/22 07/24/22 07/25/22 Range/Units 16:21 20:01 06:16 MCHC 31.8 L (32.0-37.0) g/dL RDW 18.8 H (11.5-14.5) % Carbon Dioxide (20.0-27.5) mmol/L BUN (9.0-27.0) mg/dL Est GFR (CKD-EPI)AfAm (60.0-200.0) Est GFR (CKD-EPI)NonAf (60.0-200.0) BUN/Creatinine Ratio (12.00-20.00) Ratio POC Glucose (mg/dL) 133 H 204 H (70-110) mg/dL AST (14-35) U/L Alkaline Phosphatase (41-126) U/L Albumin (3.8-4.9) g/dL Albumin/Globulin Ratio (1.60-3.17) g/dL 07/25/22 Range/Units 06:16 MCHC (32.0-37.0) g/dL RDW (11.5-14.5) % Carbon Dioxide 33.6 H (20.0-27.5) mmol/L BUN 30.8 H (9.0-27.0) mg/dL Est GFR (CKD-EPI)AfAm 52.8 L (60.0-200.0) Est GFR (CKD-EPI)NonAf 45.5 L (60.0-200.0) BUN/Creatinine Ratio 20.53 H (12.00-20.00) Ratio POC Glucose (mg/dL) (70-110) mg/dL AST 65 H (14-35) U/L Alkaline Phosphatase 634 H (41-126) U/L Albumin 3.4 L (3.8-4.9) g/dL Albumin/Globulin Ratio 1.10 L (1.60-3.17) g/dL Microbiology - Last 24 Hours (Table) 07/22/22 20:07 Blood Culture - Preliminary Blood No Growth after 48 hours 07/22/22 20:07 Blood Culture - Preliminary Blood No Growth after 48 hours Assessment and Plan (1) Cholelithiasis Current Visit: Yes Status: Acute Code(s): K80.20 - CALCULUS OF GALLBLADDER W/O CHOLECYSTITIS W/O OBSTRUCTION SNOMED Code(s): 650009633 (2) Elevated LFTs Current Visit: Yes Status: Acute Code(s): R79.89 - OTHER SPECIFIED ABNORMAL FINDINGS OF BLOOD CHEMISTRY SNOMED Code(s): 073328388 (3) Non-pressure chronic ulcer of other part of right foot with fat layer exposed Current Visit: No Status: Acute Code(s): L97.512 - NON-PRS CHRONIC ULCER OTH PRT RIGHT FOOT W FAT LAYER EXPOSED SNOMED Code(s): 033131777 Plan: 1patient presented to hospital with nausea decreased appetite and elevated kirill er enzymes patient did have abnormal ultrasound of the gallbladder suspicious for acute on chronic cholecystitis with HIDA scan currently pending, patient also have a bilateral lower extremity mild cellulitis and a wound on the right anterior lower leg. 2penicillin allergy however the patient has tolerated cephalosporins in the past without any problem. 3patient did have some clinical improvement and will continue with Rocephin 2 g daily 4local wound care to the right anterior leg wound with a dry Aquacel silver dressing followed by Ishan wrap to be change every 48 hour. Time with Patient: Less than 30
--- NOTE | 2022-07-27 08:46 | P.PN ---
Subjective Progress Note Date: 07/26/22 Principal diagnosis: Right leg wound cellulitis and possible cholecystitis Patient is a 72-year-old male sent to the ER for evaluation of abnormal liver enzymes concerning for cholecystitis in this patient did have symptoms of nausea and vomiting with abnormal HIDA scan, patient also have a chronic lower extremity swelling in the wound to the right anterior leg concer shereen for possible cellulitis. on today's evaluation that is 07/26/2022, the patient denies any fever or any chills, the patient is breathing comfortably on room air , the patient denies any chest pain or shortness of breath or cough, the patient nausea has improved still decrease oral intake no abdominal pain no diarrhea denies pain to the lower extremity Objective - Vital Signs Vital signs: Vital Signs Temp 98.2 F 07/26/22 07:34 Pulse 76 07/26/22 08:00 Resp 18 07/26/22 08:00 BP 105/69 07/26/22 07:34 Pulse Ox 99 07/26/22 07:34 FiO2 Intake & Output 07/25/22 07/26/22 07/26/22 18:59 06:59 18:59 Output Total 600 400 250 Balance -600 -400 -250 Output: Urine 600 400 250 Other: Voiding Method Urinal Urinal Urinal - Exam GENERAL DESCRIPTION: An elderly male lying in bed in no distress RESPIRATORY SYSTEM: Unlabored breathing , decreased breath sounds at bases HEART: S1 S2 regular rate and rhythm , ABDOMEN: Soft , no tenderness EXTREMITIES: Diffuse swelling to bilateral lower extremity with a small wound to the right anterior leg minimal drainage - Labs CBC & Chem 7: 07/25/22 06:16 07/26/22 06:01 Labs: Abnormal Lab Results - Last 24 Hours (Table) 07/25/22 07/25/22 07/26/22 Range/Units 17:04 19:58 06:01 Potassium 3.3 L (3.5-5.1) mmol/L Chloride 94 L (98-107) mmol/L Carbon Dioxide 33 H (22-30) mmol/L BUN 32 H (9-20) mg/dL Creatinine 1.47 H (0.66-1.25) mg/dL POC Glucose (mg/dL) 132 H 172 H (70-110) mg/dL Calcium 8.2 L (8.4-10.2) mg/dL Alkaline Phosphatase 604 H (38-126) U/L Albumin 3.4 L (3.5-5.0) g/dL 07/26/22 Range/Units 11:42 Potassium (3.5-5.1) mmol/L Chloride (98-107) mmol/L Carbon Dioxide (22-30) mmol/L BUN (9-20) mg/dL Creatinine (0.66-1.25) mg/dL POC Glucose (mg/dL) 124 H (70-110) mg/dL Calcium (8.4-10.2) mg/dL Alkaline Phosphatase (38-126) U/L Albumin (3.5-5.0) g/dL Microbiology - Last 24 Hours (Table) 07/22/22 20:07 Blood Culture - Preliminary Blood No Growth after 72 hours 07/22/22 20:07 Blood Culture - Preliminary Blood No Growth after 72 hours Assessment and Plan (1) Cholelithiasis Current Visit: Yes Status: Acute Code(s): K80.20 - CALCULUS OF GALLBLADDER W/O CHOLECYSTITIS W/O OBSTRUCTION SNOMED Code(s): 168081652 (2) Elevated LFTs Current Visit: Yes Status: Acute Code(s): R79.89 - OTHER SPECIFIED ABNORMAL FINDINGS OF BLOOD CHEMISTRY SNOMED Code(s): 497715288 (3) Non-pressure chronic ulcer of other part of right foot with fat layer exposed Current Visit: No Status: Acute Code(s): L97.512 - NON-PRS CHRONIC ULCER OTH PRT RIGHT FOOT W FAT LAYER EXPOSED SNOMED Code(s): 442533974 Plan: 1patient presented to hospital with nausea decreased appetite and elevated liver enzymes patient did have abnormal ultrasound of the gallbladder suspicious for acute on chronic cholecystitis with HIDA scan did shows EF of 48% and delayed appearance of gallbladder patient is being followed closely by general surgery, patient also have a bilateral lower extremity mild cellulitis and a wound on the right anterior lower leg. 2penicillin allergy however the patient has tolerated cephalosporins in the past without any problem. 3patient did have some clinical improvement and will continue with Rocephin 2 g daily with a plan to finish therapy short course of oral antibiotics 4local wound care to the right anterior leg wound with a dry Aquacel silver dressing followed by Ishan wrap to be change every 48 hour.
[2022-07-27] MEDS: METOPROLOL TARTRATE 25 MG TAB PO SCH (08:53)
[2022-07-27] MEDS: DOCUSATE 100 MG CAP PO SCH ×2 (08:53→19:40)
[2022-07-27] MEDS: PANTOPRAZOLE 40 MG TABLET PO SCH (08:53)
[2022-07-27] MEDS: OXYBUTYNIN 10 MG TAB.ER.24 PO SCH (08:53)
[2022-07-27] MEDS: FINASTERIDE 5 MG TAB PO SCH (08:53)
[2022-07-27] MEDS: FLUTICASONE 50MCG/SPRAY NASAL 16GM EA NOSTRIL SCH ×2 (08:54→19:40)
--- NOTE | 2022-07-27 10:20 | P.PN ---
Subjective HISTORY OF PRESENT ILLNESS: This is a pleasant 72-year-old gentleman with a past medical history of CAD, permanent atrial fibrillation, chronic lower extremity edema, lymphoma, hypertension, hyperlipidemia, chronic kidney disease, cardiac catheterization for very 2020 revealed intermediate to severe disease involving the proximal LAD with calcified tubular lesion appearing to be in range of 60% at that time medical management was recommended. He's been hospitalized recently and echocardiogram at that time showed severely impaired LV systolic function with an ejection fraction of 25-30%, severe right ventricular dilatation, moderate pulmonary hypertension, [id number] aortic regurgitation, moderate mitral regurgitation and moderate tricuspid regurgitation. Following his most recent admission he was discharged to [facility] and actually had a hospice consult. Had not been doing well. He was advised to come to the emergency department after recent labs showed elevated LFTs. We been asked to see the patient in consultation for preop clearance for possible cholecystectomy. Imaging studies do show cholelithiasis but there is no evidence of acute cholecystitis. The patient has multiple complaints including weakness, lethargy, poor taste in his mouth and nausea. He's been seen and evaluated by surgery who believes he needs further GI evaluation for other causes of his symptoms but patient and spouse present no seem to be fixated on the gallbladder has been the cause of the symptoms were asked to see the patient the patient for risk stratification. Labs today showed BUN 34.9, creatinine 1.7, total bilirubin 1.2, AST 43, ALT 45 and alkaline phosphatase of 584. There has been some improvement in LFTs since admission. 07/25/2022 Patient examined this morning. He is sitting up in the chair. Patient denies chest pain or pressure. He reports significant nausea and states he has not been able to eat much breakfast this morning. General surgery is following. 07/26/2022 Patient examined this morning. He continues to report nausea and decreased appetite. General surgery is following. He remains on Bumex 2mg IVP Q12 hours. He states he has not been urinating very much. BNP from yesterday 8240. 07/27 Patient seen and examined. Patient with little urine output however has not been eating or drinking much. No significant change in his lower extremity edema. No change in his nausea. Overall denies any chest pain or shortness breath. Patient to undergo further meeting today to talk about goals of care. PHYSICAL EXAM: VITAL SIGNS: Reviewed. GENERAL: Well-developed in no acute distress. NECK: Supple. No JVD or thyromegaly LUNGS: Respirations even and unlabored. Lungs essentially clear to auscultation bilaterally. HEART: Regular rate and rhythm. S1 and S2 heard. Systolic murmur noted. EXTREMITIES: Normal range of motion. No clubbing or cyanosis. Peripheral pulses intact. 1-2+ bilateral lower extremity edema with chronic skin discoloration. ASSESSMENT: Cholelithiasis Nausea Severe ischemic cardiomyopathy Coronary artery disease Chronic kidney disease Hypertension Hyperlipidemia Possible hepatic congestion however has not been diuresing much Acute on chronic systolic heart failure, cool extremities which can be seen with end stage heart failure PLAN: Continue current cardiac medications Change back to oral Lasix. Has not been diuresing much and has had poor oral intake. Hepatic congestion usually with more volume overload and majority of lower extremity edema appears chronic. Hepatic congestion usually causing more shortness breath and not typically only causing nausea. Consider further workup of nausea. Further recommendations from general surgery and consider GI consult. Patient is high risk to undergo surgical intervention from a cardiac standpoint Objective - Vital Signs Vital signs: Vital Signs Temp 97.9 F 07/27/22 08:00 Pulse 67 07/27/22 08:00 Resp 14 07/27/22 08:00 BP 103/66 07/27/22 08:00 Pulse Ox 92 L 07/27/22 07:15 FiO2 Intake & Output 07/26/22 07/27/22 07/27/22 18:59 06:59 18:59 Output Total 550 500 Balance -550 -500 Output: Urine 550 500 Other: Voiding Method Urinal Urinal Urinal # Voids 2 - Labs CBC & Chem 7: 07/25/22 06:16 07/26/22 06:01 Labs: Abnormal Lab Results - Last 24 Hours (Table) 07/26/22 07/26/22 07/26/22 Range/Units 11:42 16:42 21:04 POC Glucose (mg/dL) 124 H 123 H 209 H (70-110) mg/dL 07/27/22 Range/Units 07:02 POC Glucose (mg/dL) 115 H (70-110) mg/dL Microbiology - Last 24 Hours (Table) 07/22/22 20:07 Blood Culture - Preliminary Blood No Growth after 96 hours 07/22/22 20:07 Blood Culture - Preliminary Blood No Growth after 96 hours
[2022-07-27] MEDS: allopurinoL 300 MG TAB PO SCH (10:36)
[2022-07-27 11:39] LABS: Glucose,Whole Blood 205 mg/dL (70-110)
[2022-07-27] MEDS: NYSTATIN 100,000 UNIT/ML SUSP 500,000 UNIT/5 ML CUP PO SCH ×3 (13:02→19:40)
--- NOTE | 2022-07-27 13:07 | P.CONS ---
History of Present Illness - Reason for Consult Consult date: 07/27/22 Goals of Care Requesting physician: Catarina Torres - Chief Complaint Nausea - History of Present Illness Patient presented to the ED by ambulance on 07/22/22 from his senior care for evaluation with his at bedside. Past medica history significant for DM, Afib, COPD, HTN, CKD, Lymphoma, neuropathy, and ASHD. Per , the patient had blood work ordered by Dr. Gutierrez 2 days ago, and his alkaline phosphatase level was elevated, so the patient was instructed to come to the ED out of concern for a possible obstructing gallstone. Patient stated that he had felt nauseated for the past 3-4 weeks. Patient's also stated that the patient has had a decreased appetite for the past few weeks. Patient denied having any abdominal pain or any pain at all. Patient denied fever or chills, headache, focal neuro deficit, chest pain or pressure, dyspnea, cough or cold symptoms, palpitations, dizziness, abdominal pain, vomiting, diarrhea, bloody or melanotic stool, dys uria/hematuria/urinary frequency/urinary symptoms, or any other symptoms or complaints. Ultrasound showed gallstones with some possible wall thickening did not show dilated common bile duct bile duct stone. LFT's are elevated. General surgery consulted for possible cholecystectomy. HIDA scan completed which revealed a gallbladder EF of 48% and a delayed apearance of the gallbladder. Patient has a known history of heart disease with extremely low ejection fraction of around 25%. Cardiology consulted for cardiac clearance for surgery. Per cardiology, the patient is high risk to undergo surgery under anesthesia. They recommend avoidance of surgery unless absolutely necessary. General surgery recommends a comprehensive GI evaluation. They doubt cholecystitis as etiology patients symptoms. Patient and discussing possible palliative versus hospice. Review of Systems Constitutional: Reports as per HPI Past Medical History Past Medical History: Atrial Fibrillation, Asthma, Coronary Artery Disease (CAD), Cancer, Heart Failure, COPD, Diabetes Mellitus, Hyperlipidemia, Hypertension, Osteoarthritis (OA), Prostate Disorder, Renal Disease, Vascular Disorder Additional Past Medical History / Comment(s): PVD, multiple wounds bilateral legs/feet and has current L foot wound, dry scaley skin bilateral legs/feet, NIDDM type II-no longer on medications since weight loss, neuropathy bilateral legs/feet, subcutaneous B cell lymphoma diagnosed 08/2016 and completed chemotherapy 01/2017, CKD stage III, gout, back pain if stands too long, diverticular disease, benign colon polyps, BPH History of Any Multi-Drug Resistant Organisms: MRSA Year Discovered:: 05/18/17 MDRO Source:: RIGHT LEG Past Surgical History: Heart Catheterization With Stent, Joint Replacement, Orthopedic Surgery, Tonsillectomy Additional Past Surgical History / Comment(s): 2013 PCI with 2 stents, infusaport R upper chest, 8 hand surgeries after injury in [place]-skin grafts/tendon repair-skin taken from L upper chest and bilateral ankle tendon donors, L total hip arthroplasty, colonoscopies/benign polyps. Past Anesthesia/Blood Transfusion Reactions: Previous Problems w/ Anesthesia Additional Past Anesthesia/Blood Transfusion Reaction / Comm: Difficulty waking with 2 surgeries performed while in the [employer] Date of Last Stent Placement:: 2013 Past Psychological History: No Psychological Hx Reported Additional Psychological History / Comment(s): Pt has clausterphobia. Pt resides with his spouse. He uses a walker to ambulate but this is becoming more diff icult. Spouse states she feels they could use some home care assistance. She states he is not to go into a senior care, rehab at [facility] at this time 05/2022. 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 Smoking Status: Never smoker Past Alcohol Use History: Occasional Past Drug Use History: None Reported - Past Family History Mother Family Medical History: COPD, Diabetes Mellitus Additional Family Medical History / Comment(s): Mother of a [place] at the age of 61 yrs. She was a heavy smoker. Father History Unknown: Yes Family Medical History: Myocardial Infarction ([place]) Additional Family Medical History / Comment(s): Pt does not know father's medical history Medications and Allergies Home Medications Medication Instructions Recorded Confirmed Type Finasteride 5 mg PO DAILY 04/18/14 07/22/22 History Fluticasone Nasal [place] [Flonase 1 spray EA NOSTRIL Q12H 10/18/19 07/22/22 History Nasal [place]] Nitroglycerin Sl Tabs [Nitrostat] 0.4 mg SL Q5M PRN 01/13/21 07/22/22 History allopurinoL [Zyloprim] 300 mg PO DAILY 01/13/21 07/22/22 History Apixaban [Eliquis] 2.5 mg PO Q12H 06/06/22 07/22/22 History Beclomethasone Dip 80 Mcg/Puff 1 puff INHALATION RT-BID 06/06/22 07/22/22 History [Qvar 80 mcg] Dulaglutide [Trulicity] 0.75 mg SQ RODRIGUEZ 06/06/22 07/22/22 History Empagliflozin [Jardiance] 10 mg PO DAILY 06/06/22 07/22/22 History Ergocalciferol [Vitamin D2 (1250 1,250 mcg PO Q14D 06/06/22 07/22/22 History Mcg = 93027 Iu)] Folic Acid 1 mg PO DAILY 06/06/22 07/22/22 History Levothyroxine Sodium [Synthroid] 50 mcg PO DAILY 06/06/22 07/22/22 History calcitrioL [Calcitriol] 0.25 mcg PO MOFR 06/06/22 07/22/22 History Acetaminophen Tab [Tylenol] 650 mg PO Q6HR PRN tab 06/13/22 07/22/22 Rx Albuterol Nebulized [Ventolin 2.5 mg INHALATION RT-Q6H PRN ml 06/13/22 07/22/22 Rx Nebulized] Albuterol Sulfate [Proair Hfa] 1 puff INHALATION RT-Q6H PRN 06/25/22 07/22/22 History Atorvastatin [Lipitor] 40 mg PO DAILY 06/25/22 07/22/22 History Famotidine [Pepcid] 20 mg PO Q12H 06/25/22 07/22/22 History Oxybutynin Chloride [Oxybutynin 10 mg PO DAILY 06/25/22 07/22/22 History Chloride ER] bisacodyL 10 mg RECTAL Q48H PRN 06/25/22 07/22/22 History Insulin Glargine [Lantus Vial] 25 unit SQ HS 07/22/22 07/22/22 History Insulin Lispro [humaLOG Kwikpen] 10 unit SQ AC-TID PRN 07/22/22 07/22/22 History Insulin Lispro [humaLOG Kwikpen] See Protocol SQ AC-TID PRN 07/22/22 07/22/22 History Metoprolol Tartrate [Lopressor] 25 mg PO DAILY 07/22/22 07/22/22 History Allergies Allergy/AdvReac Type Severity Reaction Status Date / Time Penicillins Allergy Unknown Verified 07/22/22 21:04 Childhood/Patient went into a coma Physical Exam Vitals: Vital Signs Temp Pulse Resp BP BP Pulse Ox 07/27/22 08:00 97.9 F 67 14 103/66 07/27/22 07:15 97.4 F L 68 20 104/67 92 L 07/27/22 02:19 97.5 F L 93 16 98/69 95 07/26/22 23:07 106/62 07/26/22 19:33 97.4 F L 82 17 95/59 100 07/26/22 14:00 97.8 F 52 L 18 90/63 98 Intake and Output 07/26/22 07/27/22 07/27/22 22:59 06:59 14:59 Output Total 300 500 500 Balance -300 -500 -500 Output: Urine 300 500 500 Other: Voiding Method Urinal Urinal # Voids 2 General: Well developed, well nourished. No acute distress. Chronically ill appearing. HEENT: Head is atraumatic, normocephalic. Sclerae are clear. Pupils equal, round and reactive to light bilaterally. Mucus membranes moist. + thrush CV: Heart regular in rate and rhythm positive S1 and S2. No clicks, or rubs, + systolic murmur Lungs: Clear to auscultation bilaterally. No wheezes rales or rhonchi. Respirations even and nonlabored. on RA Abdomen/GI: Soft. + distended. Bowel sounds present in all 4 quadrants.No guarding, rigidity, or abdominal tenderness. Musculoskeletal/ Extremities: ZAPATA, no joint deformity or swelling. No gross atrophy. + generalized weakness Vascular: Radial pulses equal. 2/4. 3 + LE edema. Skin: Warm and dry, bilateral LE reddened consistent with chronic venous stasis, + bilateral LE venous stasis ulcers Neurologic: Awake, alert and oriented times 3. CN II-XII grossly intact. No focal deficits. Psychiatric: Appropriate mood and affect. 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 * Marital status - to Bina for 34 years * Children/grandchildren - 4 adult children, 2 biological and 2 step * Residence - 2 story house with ramp * Who do you reside with - * ETOH - No * Tobacco - No * Illicit drugs - No Spiritual/Cultural * A spiritual person - Yes * Moravian - Worship * Belong to a particular yarsanism - No * Beliefs a source of comfort and strength - Yes * Worship or cultural practices restrictions - No * EOL considerations/rituals - No Functional Assessment - Patient admitted from [facility] * Able to walk independently - No * Assistive devices - walker * Able to use the bathroom independently - No * Continent - Yes * Require assistance bathing- Yes * Able to feed self - Yes * Who prepares meals - [facility], at home * How many meals a day eaten - 2 * What percentage of meals eaten daily - < 50% * Able to clean house/do laundry - No * Transportation - , patient does not drive * Able to shop -No * Who manages medications -ELY * Who manages finances - * PPS - 40% Psychological/Emotional * Dementia present - No * Insight and judgment - Intact * Depression - No * Suicidal thoughts - No * Good support system - Yes * Patients goals - comfort * Frequent hospitalizations - Yes * Desire to keep coming back to the hospital for treatment - No Symptoms * Pain - 0/10, + mouth soreness - thrush noted. Nystatin swish and swallow added. * Fatigue - + generalized weakness and fatigue, frail and debilitated. * SOB - + sob with exertion, continue Flovent and Ventolin and Bumex * Insomnia - No * N/V - + persistent nausea, relief with compazine * Anxiety - No * Depression - No * Confusion - No * Agitation - No * Hallucinations - No * Appetite/weight loss - + decreased appetite 2/2 nausea, continue Compazine, encourage oral intake * Dysphagia - No * Constipation - No, LBM "couple days ago", continue colace * Incontinence - No, continue Ditropan * Itch - No Plan: Summary/Goals - Patient up in recliner eating ice cream. His , Bina, is at the bedside. Education provided regarding diagnostic testing/imaging. Discussed with the patient and his family that he is a high risk surgical candidate given his heart failure. The surgery team is recommending an extensive GI work up instead of surgery. The patient's medical history and co- morbidities discussed at length. Bina's admitted that she had already been considering hospice. He had made a little progress in [facility], but was due to be discharged on Monday anyway. She realizes that "he is not going to get better", and that this is his new baseline. The patient stated that he would have had a cholecystectomy to relieve his nausea. However, since he is not a surgical candidate, he does not see the sense in having a GI work up. Both palliative ca re and hospice philosophies explained to them. They decided that hospice would benefit them the most. The patient and Bina stated their focus is now geared toward comfort and quality of life for whatever time he has remaining. Code status discussed. The patient stated he would like to be a DNR. Recommendations - Home with hospice Advanced Directives - No Code Status - DNR Thank you for this consult Carlene Zimmer [facility] Palliative Care [facility] [id number] Email: [email or web address] Time with Patient: Greater than 30
[2022-07-27] MEDS: BUMETANIDE 1 MG TAB PO SCH (16:02)
[2022-07-27 17:01] LABS: Glucose,Whole Blood 89 mg/dL (70-110)
[2022-07-27 19:13] LABS: Glucose,Whole Blood 138 mg/dL (70-110)
[2022-07-27] MEDS: INSULIN DETEMIR (LEVEMIR) 100 UNIT/ML SYR SQ SCH (19:40)
--- NOTE | 2022-07-27 20:32 | P.PN ---
Subjective Some records: Patient was on his 72-year-old male with known history of heart disease with extremely low ejection fraction of around 25% was instructed to come to Hospital because of elevated liver enzymes and elevated alkaline phosphatase and patient is found to have possible obstructing stone. Patient has minimally elevated bilirubin of around 1.8 and AST and ALT are elevated along with alkaline phosphatase. Ultrasound showed gallstones with some possible wall thickening did not show dilated common bile duct bile duct stone. Neurosurgery was consulted and Gen. surgery evaluated the patient. Patient does have chronic kidney disease stage III with baseline creatinine of around 1.6-1.8 and patient creatinine is at his baseline at this time. Patient denied any nausea vomiting denied any significant abdominal pain. Patient also has bilateral lower extremity chronic venous stasis and the couple ulcerations in the bilateral figueredo area, for which infectious disease was consulted although it says patient is ALLERGIC to penicillin and patient was able to tolerate Cefzil in the past patient doesn't have any MRSA history infections disease evaluated the patient and patient will be started on ceftezolin 07/24/2022 Patient can use to have severe nausea it to be evaluated by general surgery today patient remains nothing by mouth. Patient does have cholelithiasis. Patient's liver enzymes have come down bilirubin is 1.2 today creatinine remained stable at around 1.6-1.7 patient is not in heart failure exacerbation at this time 07/25/2022 Patient is seen in follow up this morning and continues to report nausea that is not being relieved. NPO for possible cholecystectomy with general surgery and cardiology followiing. Patient has been explained the risks vs. benefits of surgery and is intermediate risk although is understandable and continues to be willing to proceed with surgery. Awaiting cardiology clearance. Patient takes bumex oral at home and being switched to IV per cardiology and BNP ordered. Patient continues on IV ceftriaxone and local wound care for the lower extremity leg ulcers. Eliquis is currently on hold in the event surgery occurs. Recommend repeat am labs and symptomatic treatment of the nausea and abdominal discomfort. Patient is afebrile and denies chest pain or shortness of breath. 07/26/2022 Patient seen and evaluated in follow-up this morning continues to feel about the same. Patient reports some mild relief and nausea as he ate a half a bowl of cereal and did not vomit. Patient is maintained on IV Bumex with cardiology following and continues to have decreased oral intake along with decreased urine output. Kidney functions improving although creatinine continues to be elevated. Patient is afebrile and denies chest pain or shortness of breath. General surgery following with no plans for surgical intervention. Patient and at the bedside discussing possible palliative versus hospice and palliative care GARNETT FIXER has been consulted and pending. Overall prognosis remains guarded. Recommend physical therapy to continue evaluating and working with daily with increased activity encouraged. Encouraged oral intake and continue with antibiotics as needed. Subjective: This is the first day I am taking care of the patient 07/27/2022 This is a pleasant 72 years old male with multiple medical problems, he went to see his PCP Dr. Gutierrez as he was still in me today for his nausea and loss of appetite and she referred him to the hospital for evaluation and treatment of gallbladder disease. Since admission patient has been evaluated by surgery team Dr. Gordon and chauffeur Dr. Fonseca. Patient was found to be high-risk for surgery and surgical team recommended no surgical intervention for now area When I saw the patient in the morning he was fully awake and oriented, he was sitting in a chair comfortable. He denies any abdominal pain, denies vomiting. He has no bowel movement for a few days area is passing gases. Denies diarrhea. He states his main issue is not eating " I see the foot but I don't like it"as he informs. He is already on antiemetic medication with no much benefits. Also chauffeur placed him on IV Bumex open to decrease hepatic congestion . When I talked to the patient he said I'm tolerating liquid diet and I suggested soft diet for him and he agrees However after rounds patient met with hospice team which was consulted yesterday by my colleague medical team. Patient and looks like signed for hospice care Objective - Vital Signs Vital signs: Vital Signs Temp 97.9 F 07/27/22 08:00 Pulse 67 07/27/22 08:00 Resp 14 07/27/22 08:00 BP 103/66 07/27/22 08:00 Pulse Ox 92 L 07/27/22 07:15 FiO2 Intake & Output 07/26/22 07/27/22 07/27/22 18:59 06:59 18:59 Output Total 550 500 500 Balance -550 -500 -500 Output: Urine 550 500 500 Other: Voiding Method Urinal Urinal Urinal # Voids 2 - Exam -GENERAL: The patient is alert and oriented x3, not in any acute distress. Morbidly obese, lethargic, part of it secondary to large body habitus HEENT: Pupils are round and equally reacting to light. EOMI. No scleral icterus. No conjunctival pallor. Normocephalic, atraumatic. No pharyngeal erythema. No thyromegaly. CARDIOVASCULAR: S1 and S2 present. No murmurs, rubs, or gallops. PULMONARY: Chest is clear to auscultation, no wheezing or crackles. ABDOMEN: Soft, nontender, nondistended, normoactive bowel sounds. No palpable organomegaly. MUSCULOSKELETAL: No joint swelling or deformity. -EXTREMITIES: No cyanosis, clubbing, bilateral large leg swelling, no significant pitting edema NEUROLOGICAL: Gross neurological examination did not reveal any focal deficits. SKIN: No rashes. no petechiae. - Labs CBC & Chem 7: 07/25/22 06:16 07/26/22 06:01 Labs: Abnormal Lab Results - Last 24 Hours (Table) 07/26/22 07/26/22 07/26/22 Range/Units 11:42 16:42 21:04 POC Glucose (mg/dL) 124 H 123 H 209 H (70-110) mg/dL 07/27/22 Range/Units 07:02 POC Glucose (mg/dL) 115 H (70-110) mg/dL Microbiology - Last 24 Hours (Table) 07/22/22 20:07 Blood Culture - Preliminary Blood No Growth after 96 hours 07/22/22 20:07 Blood Culture - Preliminary Blood No Growth after 96 hours Assessment and Plan Assessment: -Symptomatic cholelithiasis, general surgery following no plans for surgical intervention at this time. Discussed with the patient to try soft diet and more small frequent meals and he agreed. Patient was found high-risk by surgery and cardiac team, no surgical intervention and patient and decided to proceed with hospice care -Bilateral lower extremity venous stasis ulcers for which patient is continued on cefazolin with local wound care. ID following -Congestive failure chronic systolic dysfunction EF of around 25-30%, acute exacerbation -Chronic kidney disease stage III patient creatinine is at his baseline -type 2 diabetes mellitus, continue with current insulin regimen and monitoring Accu-Cheks before meals and at bedtime as patient continues with poor oral intake -History of paroxysmal atrial fibrillation anticoagulation was currently on hold for possible surgery intervention -Coronary artery disease with stents in the past -Hyperlipidemia -Hypertension -Peripheral vascular disease -Chronic venous stasis dermatosis of both legs -DVT prophylaxis: Will resume on anticoagulation when appropriate, SCDs DO NOT RESUSCITATE Possible discharge in 24-48 hours
[2022-07-28] MEDS: PROCHLORPERAZINE INJ 10 MG/2 ML VIAL IVP PRN (03:18)
[2022-07-28] MEDS: LEVOTHYROXINE 50 MCG TAB PO SCH (06:01)
[2022-07-28 07:10] LABS: Glucose,Whole Blood 137 mg/dL (70-110)
[2022-07-28] MEDS: FLUTICASONE 110 MCG INHALER INHALATION SCH (07:14)
--- NOTE | 2022-07-28 08:02 | P.PN ---
Subjective HISTORY OF PRESENT ILLNESS: This is a pleasant 72-year-old gentleman with a past medical history of CAD, permanent atrial fibrillation, chronic lower extremity edema, lymphoma, hypertension, hyperlipidemia, chronic kidney disease, cardiac catheterization for very 2020 revealed intermediate to severe disease involving the proximal LAD with calcified tubular lesion appearing to be in range of 60% at that time medical management was recommended. He's been hospitalized recently and echocardiogram at that time showed severely impaired LV systolic function with an ejection fraction of 25-30%, severe right ventricular dilatation, moderate pulmonary hypertension, [id number] aortic regurgitation, moderate mitral regurgitation and moderate tricuspid regurgitation. Following his most recent admission he was discharged to [facility] and actually had a hospice consult. Had not been doing well. He was advised to come to the emergency department after recent labs showed elevated LFTs. We been asked to see the patient in consultation for preop clearance for possible cholecystectomy. Imaging studies do show cholelithiasis but there is no evidence of acute cholecystitis. The patient has multiple complaints including weakness, lethargy, poor taste in his mouth and nausea. He's been seen and evaluated by surgery who believes he needs further GI evaluation for other causes of his symptoms but patient and spouse present no seem to be fixated on the gallbladder has been the cause of the symptoms were asked to see the patient the patient for risk stratification. Labs today showed BUN 34.9, creatinine 1.7, total bilirubin 1.2, AST 43, ALT 45 and alkaline phosphatase of 584. There has been some improvement in LFTs since admission. 07/25/2022 Patient examined this morning. He is sitting up in the chair. Patient denies chest pain or pressure. He reports significant nausea and states he has not been able to eat much breakfast this morning. General surgery is following. 07/26/2022 Patient examined this morning. He continues to report nausea and decreased appetite. General surgery is following. He remains on Bumex 2mg IVP Q12 hours. He states he has not been urinating very much. BNP from yesterday 8240. 07/27 Patient seen and examined. Patient with little urine output however has not been eating or drinking much. No significant change in his lower extremity edema. No change in his nausea. Overall denies any chest pain or shortness breath. Patient to undergo further meeting today to talk about goals of care. 07/28 Patient seen and examined. Patient met with hospice/palliative care yesterday and decided on hospice care. He does admit some of his nausea is improved. He was switched to oral Bumex and still with good urine output. Denies any chest pain or shortness breath. PHYSICAL EXAM: VITAL SIGNS: Reviewed. GENERAL: Well-developed in no acute distress. NECK: Supple. No JVD or thyromegaly LUNGS: Respirations even and unlabored. Lungs essentially clear to auscultation bilaterally. HEART: Regular rate and rhythm. S1 and S2 heard. Systolic murmur noted. EXTREMITIES: Normal range of motion. No clubbing or cyanosis. Peripheral pulses intact. 1-2+ bilateral lower extremity edema with chronic skin discoloration. ASSESSMENT: Cholelithiasis Nausea Severe ischemic cardiomyopathy Coronary artery disease Chronic kidney disease Hypertension Hyperlipidemia Possible hepatic congestion however has not been diuresing much Acute on chronic systolic heart failure, cool extremities which can be seen with end stage heart failure PLAN: Continue current cardiac medications Continue oral Bumex going home. Patient and decided on hospice care which appears appropriate. Discharge home with hospice and outpatient follow-up as needed. P Objective - Vital Signs Vital signs: Vital Signs Temp 98.0 F 07/28/22 02:59 Pulse 66 07/28/22 02:59 Resp 17 07/28/22 02:59 BP 125/73 07/28/22 02:59 Pulse Ox 99 07/28/22 02:59 FiO2 Intake & Output 07/27/22 07/28/22 07/28/22 18:59 06:59 18:59 Output Total 680 325 Balance -680 -325 Output: Urine 680 325 Other: Voiding Method Urinal Urinal - Labs CBC & Chem 7: 07/25/22 06:16 07/26/22 06:01 Labs: Abnormal Lab Results - Last 24 Hours (Table) 07/27/22 07/27/22 07/28/22 Range/Units 11:36 19:11 07:08 POC Glucose (mg/dL) 205 H 138 H 137 H (70-110) mg/dL Microbiology - Last 24 Hours (Table) 07/22/22 20:07 Blood Culture - Preliminary Blood No Growth after 120 hours 07/22/22 20:07 Blood Culture - Preliminary Blood No Growth after 120 hours
[2022-07-28 08:05] VITALS: RESP 18
[2022-07-28] MEDS: INSULIN ASPART (NovoLOG) 100 UNIT/ML VIAL SQ SCH ×2 (08:07→12:51)
[2022-07-28] MEDS: NYSTATIN 100,000 UNIT/ML SUSP 500,000 UNIT/5 ML CUP PO SCH ×2 (08:39→12:51)
[2022-07-28] MEDS: FLUTICASONE 50MCG/SPRAY NASAL 16GM EA NOSTRIL SCH (08:39)
[2022-07-28] MEDS: DOCUSATE 100 MG CAP PO SCH (08:40)
[2022-07-28] MEDS: FINASTERIDE 5 MG TAB PO SCH (08:40)
[2022-07-28] MEDS: PANTOPRAZOLE 40 MG TABLET PO SCH (08:40)
[2022-07-28] MEDS: allopurinoL 300 MG TAB PO SCH (08:40)
[2022-07-28] MEDS: METOPROLOL TARTRATE 25 MG TAB PO SCH (08:40)
[2022-07-28] MEDS: OXYBUTYNIN 10 MG TAB.ER.24 PO SCH (08:40)
[2022-07-28] MEDS: BUMETANIDE 1 MG TAB PO SCH (08:40)
--- NOTE | 2022-07-28 11:50 | P.PN ---
Subjective Progress Note Date: 07/28/22 Patient presented to the ED by ambulance on 07/22/22 from his senior living for evaluation with his at bedside. Past medica history significant for DM, Afib, COPD, HTN, CKD, Lymphoma, neuropathy, and ASHD. Per , the patient had blood work ordered by Dr. Gutierrez 2 days ago, and his alkaline phosphatase level was elevated, so the patient was instructed to come to the ED out of concern for a possible obstructing gallstone. Patient stated that he had felt nauseated for the past 3-4 weeks. Patient's also stated that the patient has had a decreased appetite for the past few weeks. Patient denied having any abdominal pain or any pain at all. Patient denied fever or chills, headache, focal neuro deficit, chest pain or pressure, dyspnea, cough or cold symptoms, palpitations, dizziness, abdominal pain, vomiting, diarrhea, bloody or melanotic stool, dysuria/hematuria/urinary frequency/urinary symptoms, or any other symptoms or complaints. Ultrasound showed gallstones with some possible wall thickening did not show dilated common bile duct bile duct stone. LFT's are elevated. General surgery consulted for possible cholecystectomy. HIDA scan completed which revealed a gallbladder EF of 48% and a delayed apearance of the gallbladder. Patient has a known history of heart disease with extremely low ejection fraction of around 25%. Cardiology consulted for cardiac clearance for surgery. Per cardiology, the patient is high risk to undergo surgery under anesthesia. They recommend avoidance of surgery unless absolutely necessary. General surgery recommends a comprehensive GI evaluation. They doubt cholecystitis as etiology patients symptoms. Patient and discussing possible palliative versus hospice. 07/27 Patient up in recliner eating ice cream. His , Bina, is at the bedside. Education provided regarding diagnostic testing/imaging. Discussed with the patient and his family that he is a high risk surgical candidate given his heart failure. The surgery team is recommending an extensive GI work up instead of surgery. The patient's medical history and co-morbidities discussed at length. Bina's admitted that she had already been considering hospice. He had made a little progress in [place], but was due to be discharged on Monday anyway. She realizes that "he is not going to get better", and that this is his new baseline. The patient stated that he would have had a cholecystectomy to relieve his nausea. However, since he is not a surgical candidate, he does not see the sense in having a GI work up. Both palliative care and hospice p hilosophies explained to them. They decided that hospice would benefit them the most. The patient and Bina stated their focus is now geared toward comfort and quality of life for whatever time he has remaining. Code status discussed. The patient stated he would like to be a DNR. Objective - Vital Signs Vital signs: Vital Signs Temp 97.5 F L 07/28/22 08:00 Pulse 75 07/28/22 08:00 Resp 18 07/28/22 08:00 BP 113/69 07/28/22 08:00 Pulse Ox 99 07/28/22 08:00 FiO2 Intake & Output 07/27/22 07/28/22 07/28/22 18:59 06:59 18:59 Intake Total 240 Output Total 680 325 175 Balance -680 -325 65 Intake: Oral 240 Output: Urine 680 325 175 Other: Voiding Method Urinal Urinal - Exam General: Well developed, well nourished. No acute distress. Chronically ill appearing. HEENT: Head is atraumatic, normocephalic. Sclerae are clear. Pupils equal, round and reactive to light bilaterally. Mucus membranes moist. + thrush CV: Heart regular in rate and rhythm positive S1 and S2. No clicks, or rubs, + systolic murmur Lungs: Clear to auscultation bilaterally. No wheezes rales or rhonchi. Respirations even and nonlabored. on RA Abdomen/GI: Soft. + distended. Bowel sounds present in all 4 quadrants.No guardi ng, rigidity, or abdominal tenderness. Musculoskeletal/ Extremities: ZAPATA, no joint deformity or swelling. No gross atrophy. + generalized weakness Vascular: Radial pulses equal. 2/4. 3 + LE edema. Skin: Warm and dry, bilateral LE reddened consistent with chronic venous stasis, + bilateral LE venous stasis ulcers Neurologic: Awake, alert and oriented times 3. CN II-XII grossly intact. No focal deficits. Psychiatric: Appropriate mood and affect. - Labs CBC & Chem 7: 07/25/22 06:16 07/26/22 06:01 Labs: Abnormal Lab Results - Last 24 Hours (Table) 07/27/22 07/28/22 Range/Units 19:11 07:08 POC Glucose (mg/dL) 138 H 137 H (70-110) mg/dL Microbiology - Last 24 Hours (Table) 07/22/22 20:07 Blood Culture - Preliminary Blood No Growth after 120 hours 07/22/22 20:07 Blood Culture - Preliminary Blood No Growth after 120 hours Assessment and Plan Assessment: Symptoms * Pain - 0/10, + mouth soreness - thrush noted. Continue Nystatin swish and swallow. * Fatigue - + generalized weakness and fatigue, frail and debilitated. * SOB - + sob with exertion, continue Flovent and Ventolin and Bumex * Insomnia - No * N/V - + persistent nausea - improved, continue Compazine * Anxiety - No * Depression - No * Confusion - No * Agitation - No * Hallucinations - No * Appetite/weight loss - + decreased appetite 2/2 nausea, continue Compazine, encourage oral intake * Dysphagia - No * Constipation - No, LBM "couple days ago", continue Colace * Incontinence - No, continue Ditropan * Itch - No Plan: Summary/Goals - The patient is sitting up in a chair. He states he is more comfortable there than in bed. He was asleep, but woke easily. Patient and his met with [facility] yesterday and signed on. Per case managers, rail operations controller has ordered DME which will be delivered to home today at 1p and w/c van transport has been arranged for 2p today. She states is aware. The patient voiced that he is very happy to be going home today. Recommendations - Home with hospice Advanced Directives - No Code Status - DNR Thank you for this consult Carlene Zimmer [facility] [address] Email: [email or web address] Time with Patient: Less than 30
[2022-07-28 11:54] LABS: Glucose,Whole Blood 178 mg/dL (70-110)
[2022-07-28 12:11] VITALS: BMI 47.7
[2022-07-28 13:16] VITALS: BP 97/63; PULSE 57; TEMP 97.6
--- NOTE | 2022-07-29 00:33 | P.DS ---
Providers Date of admission: 07/25/22 13:08 Attending physician: Redd Metzger Consults: 07/22/22 20:01 Consult Physician Urgent Consulting Provider: Sandeep Cook Consult Reason/Comments: Cholelithiasis, possible cholecystitis Do you want consulting provider notified?: Already Contacted 07/23/22 10:12 Consult Physician Routine Consulting Provider: Kaylynn Spears Consult Reason/Comments: Wound infection Do you want consulting provider notified?: Yes 07/24/22 11:40 Consult Physician Routine Consulting Provider: Vel Plata Consult Reason/Comments: surgical clearance Do you want consulting provider notified?: Yes 07/26/22 12:26 Consult to Palliative Care Urgent Consulting Provider: Carlene Zimmer Consult Reason/Comments: informational palliative vs hospice consult Do you want consulting provider notified?: Yes Primary care physician: Migue Yung [facility] Course: Diagnoses: -Symptomatic cholelithiasis, general surgery following no plans for surgical intervention at this time. Patient was found high-risk by surgery and cardiac team, so no surgical intervention and patient and decided to proceed with hospice care, they don't think the patient will improve -Bilateral lower extremity venous stasis ulcers for which patient is continued on cefazolin with local wound care. ID following -Congestive failure chronic systolic dysfunction EF of around 25-30%, acute exacerbation -Chronic kidney disease stage III patient creatinine is at his baseline -type 2 diabetes mellitus, continue with current insulin regimen and monitoring Accu-Cheks before meals and at bedtime as patient continues with poor oral intake -History of paroxysmal atrial fibrillation anticoagulation was currently on hold for possible surgery intervention -Coronary artery disease with stents in the past -Hyperlipidemia -Hypertension -Peripheral vascular disease -Chronic venous stasis dermatosis of both legs DO NOT RESUSCITATE Hospital course:: Hospital course:patient was on his 72-year-old male with known history of heart disease with extremely low ejection fraction of around 25% was instructed to come to Hospital because of elevated liver enzymes and elevated alkaline phosphatase and patient is found to have possible obstructing stone. Patient has minimally elevated bilirubin of around 1.8 and AST and ALT are elevated along with alkaline phosphatase. Ultrasound showed gallstones with some possible wall thickening did not show dilated common bile duct bile duct stone. Neurosurgery was consulted and Gen. surgery evaluated the patient. And opted no surgical intervention. Patient is high-risk for surgery per slide machine tender. Patient symptoms was minimally nausea and loss of appetite. No vomiting and no abdominal pain. No diarrhea. Patient was advised with diet modification however patient and they don't think patient is going to improve and they have decided to proceed with hospice care after it was explained to them in details by the palliative care team. Patient confirms to me today that he is currently on hospice. Based upon my evaluation patient has capacity to make medical decision Problems and management plan were discussed with the patient and he verbalized understanding and acceptance Patient was found stable and can be discharged home in guarded prognosis however he needs follow-up as an outpatient. Patient was instructed to follow up with PCP within one week and patient agrees Physical exam Gen: patient is a AAOx3, no distress. Obese, very weak and lethargic CVS: S1-S2, RRR, no murmur Lungs: B/L CTA, no wheezing Abdomen: soft, no distention, no tenderness, positive bowel sounds -Extremity: Bilateral Large, swollen and indurated legs Time spent more than 35 minutes Patient Condition at Discharge: Stable Plan - Discharge Summary Discharge Rx Participant: No New Discharge Prescriptions: New Bumetanide [BUMEX] 1 mg PO BID@0900,1600 #60 tab cefUROXime axetiL [Ceftin] 500 mg PO BID 10 Days #20 tab Docusate [Colace] 100 mg PO BID PRN #10 cap PRN Reason: Constipation Nystatin 100,000 Unit/ml Susp [Mycostatin Oral Susp] 500,000 unit PO QID 3 Days #60 ml INSULIN ASPART (NovoLOG) [NovoLOG (formulary)] 0 unit SQ ACHS each Continue Finasteride 5 mg PO DAILY Fluticasone Nasal T[place]ill [Flonase Nasal [place]] 1 spray EA NOSTRIL Q12H Nitroglycerin Sl Tabs [Nitrostat] 0.4 mg SL Q5M PRN PRN Reason: Chest Pain allopurinoL [Zyloprim] 300 mg PO DAILY Empagliflozin [Jardiance] 10 mg PO DAILY Dulaglutide [Trulicity] 0.75 mg SQ RODRIGUEZ Beclomethasone Dip 80 Mcg/Puff [Qvar 80 mcg] 1 puff INHALATION RT-BID Apixaban [Eliquis] 2.5 mg PO Q12H Acetaminophen Tab [Tylenol] 650 mg PO Q6HR PRN tab PRN Reason: Fever And/ Or Pain Albuterol Nebulized [Ventolin Nebulized] 2.5 mg INHALATION RT-Q6H PRN ml PRN Reason: Shortness Of Breath bisacodyL 10 mg RECTAL Q48H PRN PRN Reason: Constipation Famotidine [Pepcid] 20 mg PO Q12H Atorvastatin [Lipitor] 40 mg PO DAILY Metoprolol Tartrate [Lopressor] 25 mg PO DAILY Levothyroxine Sodium [Synthroid] 50 mcg PO DAILY Folic Acid 1 mg PO DAILY calcitrioL [Calcitriol] 0.25 mcg PO MOFR Albuterol Sulfate [Proair Hfa] 1 puff INHALATION RT-Q6H PRN PRN Reason: Shortness Of Breath Oxybutynin Chloride [Oxybutynin Chloride ER] 10 mg PO DAILY Insulin Lispro [humaLOG Kwikpen] See Protocol SQ AC-TID PRN PRN Reason: HOLD BS <110 OR NOT EATING Discontinued Insulin Lispro [humaLOG Kwikpen] 10 unit SQ AC-TID PRN PRN Reason: HOLD BS <110 OR NOT EATING Ergocalciferol [Vitamin D2 (1250 Mcg = 23932 Iu)] 1,250 mcg PO Q14D Insulin Glargine [Lantus Vial] 25 unit SQ HS Discharge Medication List Finasteride 5 mg PO DAILY 04/18/14 [History] Fluticasone Nasal T[place]ill [Flonase Nasal [place]] 1 spray EA NOSTRIL Q12H 10/18/19 [History] Nitroglycerin Sl Tabs [Nitrostat] 0.4 mg SL Q5M PRN 01/13/21 [History] allopurinoL [Zyloprim] 300 mg PO DAILY 01/13/21 [History] Apixaban [Eliquis] 2.5 mg PO Q12H 06/06/22 [History] Beclomethasone Dip 80 Mcg/Puff [Qvar 80 mcg] 1 puff INHALATION RT-BID 06/06/22 [History] Dulaglutide [Trulicity] 0.75 mg SQ RODRIGUEZ 06/06/22 [History] Empagliflozin [Jardiance] 10 mg PO DAILY 06/06/22 [History] Folic Acid 1 mg PO DAILY 06/06/22 [History] Levothyroxine Sodium [Synthroid] 50 mcg PO DAILY 06/06/22 [History] calcitrioL [Calcitriol] 0.25 mcg PO MOFR 06/06/22 [History] Acetaminophen Tab [Tylenol] 650 mg PO Q6HR PRN tab 06/13/22 [Rx] Albuterol Nebulized [Ventolin Nebulized] 2.5 mg INHALATION RT-Q6H PRN ml 06/13/22 [Rx] Albuterol Sulfate [Proair Hfa] 1 puff INHALATION RT-Q6H PRN 06/25/22 [History] Atorvastatin [Lipitor] 40 mg PO DAILY 06/25/22 [History] Famotidine [Pepcid] 20 mg PO Q12H 06/25/22 [History] Oxybutynin Chloride [Oxybutynin Chloride ER] 10 mg PO DAILY 06/25/22 [History] bisacodyL 10 mg RECTAL Q48H PRN 06/25/22 [History] Insulin Lispro [humaLOG Kwikpen] See Protocol SQ AC-TID PRN 07/22/22 [History] Metoprolol Tartrate [Lopressor] 25 mg PO DAILY 07/22/22 [History] Bumetanide [BUMEX] 1 mg PO BID@0900,1600 #60 tab 07/28/22 [Rx] Docusate [Colace] 100 mg PO BID PRN #10 cap 07/28/22 [Rx] INSULIN ASPART (NovoLOG) [NovoLOG (formulary)] 0 unit SQ ACHS each 07/28/22 [Rx] Nystatin 100,000 Unit/ml Susp [Mycostatin Oral Susp] 500,000 unit PO QID 3 Days #60 ml 07/28/22 [Rx] cefUROXime axetiL [Ceftin] 500 mg PO BID 10 Days #20 tab 07/28/22 [Rx] Follow up Appointment(s)/Referral(s): Migue Hicks III, MD [Primary Care Provider] - 1-2 days Patient Instructions/Handouts: Gallstones (DC) Discharge Disposition: HOME WITH HOSPICE
--- NOTE | 2022-08-04 23:30 | P.PN ---
Subjective Progress Note Date: 07/27/22 Principal diagnosis: Right leg wound cellulitis and possible cholecystitis Patient is a 72-year-old male sent to the ER for evaluation of abnormal liver enzymes concerning for cholecystitis in this patient did have symptoms of nausea and vomiting with abnormal HIDA scan, patient also have a chronic lower extremity swelling in the wound to the right anterior leg concer shereen for possible cellulitis. on today's evaluation that is 07/27/2022, the patient is afebrile, the patient is breathing comfortably on room air , the patient denies any chest pain shortness of breath or cough, the patient nausea has improved still decrease oral intake no abdominal pain no diarrhea denies pain to the lower extremity and no drainage Objective - Vital Signs Vital signs: Vital Signs Temp 97.9 F 07/27/22 08:00 Pulse 67 07/27/22 08:00 Resp 14 07/27/22 08:00 BP 103/66 07/27/22 08:00 Pulse Ox 92 L 07/27/22 07:15 FiO2 Intake & Output 07/26/22 07/27/22 07/27/22 18:59 06:59 18:59 Output Total 550 500 Balance -550 -500 Output: Urine 550 500 Other: Voiding Method Urinal Urinal # Voids 2 - Exam GENERAL DESCRIPTION: An elderly male lying in bed in no distress RESPIRATORY SYSTEM: Unlabored breathing , decreased breath sounds at bases HEART: S1 S2 regular rate and rhythm , ABDOMEN: Soft , no tenderness EXTREMITIES: Diffuse swelling to bilateral lower extremity with a small wound to the right anterior leg minimal drainage - Labs CBC & Chem 7: 07/25/22 06:16 07/26/22 06:01 Labs: Abnormal Lab Results - Last 24 Hours (Table) 07/26/22 07/26/22 07/26/22 Range/Units 11:42 16:42 21:04 POC Glucose (mg/dL) 124 H 123 H 209 H (70-110) mg/dL 07/27/22 Range/Units 07:02 POC Glucose (mg/dL) 115 H (70-110) mg/dL Microbiology - Last 24 Hours (Table) 07/22/22 20:07 Blood Culture - Preliminary Blood No Growth after 96 hours 07/22/22 20:07 Blood Culture - Preliminary Blood No Growth after 96 hours Assessment and Plan (1) Cholelithiasis Status: Acute Code(s): K80.20 - CALCULUS OF GALLBLADDER W/O CHOLECYSTITIS W/O OBSTRUCTION SNOMED Code(s): 259310898 (2) Elevated LFTs Status: Acute Code(s): R79.89 - OTHER SPECIFIED ABNORMAL FINDINGS OF BLOOD CHEMISTRY SNOMED Code(s): 948931785 (3) Non-pressure chronic ulcer of other part of right foot with fat layer exposed Status: Acute Code(s): L97.512 - NON-PRS CHRONIC ULCER OTH PRT RIGHT FOOT W FAT LAYER EXPOSED SNOMED Code(s): 170220973 Plan: 1patient presented to hospital with nausea decreased appetite and elevated liver enzymes patient did have abnormal ultrasound of the gallbladder suspicious for acute on chronic cholecystitis with HIDA scan did shows EF of 48% and delayed appearance of gallbladder patient is being followed closely by general surgery, patient also have a bilateral lower extremity mild cellulitis and a wound on the right anterior lower leg. 2 patient did have some clinical improvement and will continue with Rocephin 2 g daily with a plan to finish therapy short course of oral antibiotics 3local wound care to the right anterior leg wound with a dry Aquacel silver dressing followed by Ishan wrap to be change every 48 hour.
--- NOTE | 2022-08-04 23:31 | P.PN ---
Subjective Progress Note Date: 07/28/22 Principal diagnosis: Right leg wound cellulitis and possible cholecystitis Patient is a 72-year-old male sent to the ER for evaluation of abnormal liver enzymes concerning for cholecystitis in this patient did have symptoms of nausea and vomiting with abnormal HIDA scan, patient also have a chronic lower extremity swelling in the wound to the right anterior leg concer shereen for possible cellulitis. on today's evaluation that is 07/28/2022, the patient continues to be afebrile, the patient is breathing comfortably on room air , the patient denies any chest pain shortness of breath or cough, the patient nausea has improved , no abdominal pain no diarrhea, the pt denies pain to the lower extremity and no drainage Objective - Vital Signs Vital signs: Vital Signs Temp 97.5 F L 07/28/22 08:00 Pulse 75 07/28/22 08:00 Resp 18 07/28/22 08:00 BP 113/69 07/28/22 08:00 Pulse Ox 99 07/28/22 08:00 FiO2 Intake & Output 07/27/22 07/28/22 07/28/22 18:59 06:59 18:59 Intake Total 240 Output Total 680 325 175 Balance -680 -325 65 Intake: Oral 240 Output: Urine 680 325 175 Other: Voiding Method Urinal Urinal - Exam GENERAL DESCRIPTION: An elderly male lying in bed in no distress RESPIRATORY SYSTEM: Unlabored breathing , decreased breath sounds at bases HEART: S1 S2 regular rate and rhythm , ABDOMEN: Soft , no tenderness EXTREMITIES: Diffuse swelling to bilateral lower extremity with a small wound to the right anterior leg minimal drainage - Labs CBC & Chem 7: 07/25/22 06:16 07/26/22 06:01 Labs: Abnormal Lab Results - Last 24 Hours (Table) 07/27/22 07/27/22 07/28/22 Range/Units 11:36 19:11 07:08 POC Glucose (mg/dL) 205 H 138 H 137 H (70-110) mg/dL Microbiology - Last 24 Hours (Table) 07/22/22 20:07 Blood Culture - Preliminary Blood No Growth after 120 hours 07/22/22 20:07 Blood Culture - Preliminary Blood No Growth after 120 hours Assessment and Plan (1) Cholelithiasis Status: Acute Code(s): K80.20 - CALCULUS OF GALLBLADDER W/O CHOLECYSTITIS W/O OBSTRUCTION SNOMED Code(s): 213585775 (2) Elevated LFTs Status: Acute Code(s): R79.89 - OTHER SPECIFIED ABNORMAL FINDINGS OF BLOOD CHEMISTRY SNOMED Code(s): 959475626 (3) Non-pressure chronic ulcer of other part of right foot with fat layer exposed Status: Acute Code(s): L97.512 - NON-PRS CHRONIC ULCER OTH PRT RIGHT FOOT W FAT LAYER EXPOSED SNOMED Code(s): 101012856 Plan: 1patient presented to hospital with nausea decreased appetite and elevated liver enzymes patient did have abnormal ultrasound of the gallbladder suspicious for acute on chronic cholecystitis with HIDA scan did shows EF of 48% and delayed appearance of gallbladder patient is being followed closely by general surgery, patient also have a bilateral lower extremity mild cellulitis and a wound on the right anterior lower leg. 2 patient did have some clinical improvement and will continue with Rocephin 2 g daily with a plan to finish therapy short course of oral ceftin x 7 days and close outpatient follow up 3local wound care to the right anterior leg wound with a dry Aquacel silver dressing followed by Ishan wrap to be change every 48 hour. Time with Patient: Less than 30
== END 2022-07-28 14:15 | disposition hospice, home (50) | DRG 444 ==
LOC: EC 16:50 → 6NMEDSUR 20:01 → OBSVTOIN 07-25 13:08
PROVIDERS: ADMIT Internal Medicine; ATTEND Internal Medicine
DX: K80.20 Calculus of gallbladder without cholecystitis without obstruction (principal); I50.23 Acute on chronic systolic (congestive) heart failure; B37.0 Candidal stomatitis; I13.0 Hypertensive heart and chronic kidney disease with heart failure and stage 1 through stage 4 chronic kidney disease, or unspecified chronic kidney disease; L03.115 Cellulitis of right lower limb; L03.116 Cellulitis of left lower limb; Z68.42 Body mass index [BMI] 45.0-49.9, adult; E11.40 Type 2 diabetes mellitus with diabetic neuropathy, unspecified; E11.22 Type 2 diabetes mellitus with diabetic chronic kidney disease; N18.30 Chronic kidney disease, stage 3 unspecified; E11.51 Type 2 diabetes mellitus with diabetic peripheral angiopathy without gangrene; I48.0 Paroxysmal atrial fibrillation; Z66 Do not resuscitate; Z96.642 Presence of left artificial hip joint; J44.9 Chronic obstructive pulmonary disease, unspecified; I25.5 Ischemic cardiomyopathy; I27.20 Pulmonary hypertension, unspecified; I08.3 Combined rheumatic disorders of mitral, aortic and tricuspid valves; I87.2 Venous insufficiency (chronic) (peripheral); L97.512 Non-pressure chronic ulcer of other part of right foot with fat layer exposed; K76.1 Chronic passive congestion of liver; R63.0 Anorexia; E78.5 Hyperlipidemia, unspecified; Z28.310 Unvaccinated for COVID-19; I25.10 Atherosclerotic heart disease of native coronary artery without angina pectoris; R53.81 Other malaise; I87.8 Other specified disorders of veins; R26.2 Difficulty in walking, not elsewhere classified; K57.90 Diverticulosis of intestine, part unspecified, without perforation or abscess without bleeding; M10.9 Gout, unspecified; M54.9 Dorsalgia, unspecified; Z51.5 Encounter for palliative care; Z85.72 Personal history of non-Hodgkin lymphomas; Z88.0 Allergy status to penicillin; Z95.5 Presence of coronary angioplasty implant and graft; Z92.21 Personal history of antineoplastic chemotherapy; Z71.3 Dietary counseling and surveillance; Z91.82 Personal history of military deployment; Z79.01 Long term (current) use of anticoagulants; Z79.4 Long term (current) use of insulin; Z79.84 Long term (current) use of oral hypoglycemic drugs; Z79.890 Hormone replacement therapy; Z79.899 Other long term (current) drug therapy; Z82.49 Family history of ischemic heart disease and other diseases of the circulatory system; Z82.5 Family history of asthma and other chronic lower respiratory diseases; Z83.3 Family history of diabetes mellitus
CPT/HCPCS: 36415; 76705; 78227; 80053; 81003; 83690; 83735; 83880; 85025; 85027; 85610; 85730; 87040; 94640; 96365; 96368; 96375; 99285